=== PATIENT | female | born 1940 | race Caucasian/White ===

== ENCOUNTER → 2018-01-19 | Outpatient (CLI) | payer OTHER, BC ==
[~2018-01-19] MED LIST: ALLO300T2 PO; AMLO5TAB3 PO; BILB40CA2 PO; CARB0.5D OPB; CETI10TA84 PO; CHOL1000 PO; CINN1CAP2 PO; CRAN1CAP15 PO; CYAN100020 PO; DOCU100C31 PO; ENAL10TA88 PO; FAMO40TA6 PO; FLAXMIS; GADAVIST IV PRN; GARL705C PO; GLUCTAB7 PO; MELO7.5T5 PO; METF-383 PO; MULT1CAP6 PO; OMEG1205; OXYC-90 PO; PRAV20TA PO; PRED-301 PO; TRIM100T PO; VALA500T60 PO
--- NOTE | 2018-01-19 13:07 | DIAGNOSTIC IMAGING REPORT ---
MRCP CLINICAL HISTORY: INTRADUCTAL PAPILLARY MUCINOUS NEOPLASM COMPARISON STUDY: 04/25/2016 FINDINGS: Since the prior study, the patient has developed right-sided hydronephrosis and hydroureter. Further workup of this finding is advocated. The spleen is borderline enlarged measuring 12 cm. There are increasing clustered cystic lesions within the pancreatic head measuring up to 15 mm in diameter. There is no associated pancreatic ductal dilatation. There are few tiny cystic lesions within the pancreatic body and tail. 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 There is been interval decrease in the previously identified enlarged peripancreatic, mai hepatis and para-aortic lymph nodes. IMPRESSION: 1. Interval decrease in splenic size which is now the upper limits of normal 2. Interval decrease in the size of the previous identified enlarged peripancreatic mai hepatis and para-aortic lymph nodes 3. Interval increase in the number of the multiple cystic pancreatic lesions most pronounced at the level of the pancreatic head and uncinate process. The largest measures 15 mm. There is no associated pancreatic ductal dilatation. 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 Interval development of right-sided hydronephrosis and hydroureter. Further workup is advocated to elucidate the etiology of this finding. Electronically signed by: Kannan Travis M.D. 01/19/2018 1:06 PM Dictated Date/Time: 01/19/2018 12:54 PM
--- NOTE | 2018-01-19 14:00 | DIAGNOSTIC IMAGING REPORT ---
ABDOMEN COMBO HISTORY: 77 years-old Female INTRADUCTAL PAPILLARY MUCINOUS NEOPLASM follow-up study in a patient with history of cystic lesions of the pancreas. Patient complains of acute mid epigastric abdominal pain COMPARISON: MRCP of same day, MRI abdomen 04/25/2016 TECHNIQUE: Multiplanar multisequence MRI of the abdomen was obtained both with and without the use of 8 mL Gadavist FINDINGS: Brand Engineer localizer images demonstrate no focal abnormality of the imaged intrathoracic structures. Moderate right-sided hydroureteronephrosis with dilation of the ureter extending to the level of the pelvis. No obstructing lesion or definite filling defects identified on this study. Mild perinephric stranding bilaterally with mild urothelial enhancement on the right. External renal pelvis is seen on the left. A few nonenhancing subcentimeter T2 hyperintense lesions about the kidneys suggest renal cysts. Spleen measures within normal limits at 12 cm. Study is mildly motion degraded. Mild thickening of the left adrenal gland. Right adrenal gland is unremarkable. Liver is within normal limits. Aorta and IVC are within normal limits. The portal vein is unremarkable. Nonenlarged periportal and periaortic lymph nodes are seen. Periaortic lymph nodes measure up to 6 mm in short axis, decreased in size from comparison study 04/25/2016. No biliary ductal dilation identified. Pancreatic duct appears normal. There is redemonstration of multiple circumscribed round and ovoid T2 hyperintense lesions about the pancreas, notably involving the pancreatic head and uncinate process with a few of the pancreatic tail which overall have increased in number from comparison study, largest which measures up to 1.5 cm. No associated enhancement identified. No solid pancreatic mass lesions are identified. No bowel obstruction. The soft tissues are within normal limits. Multilevel disc bulging of the thoracic spine. IMPRESSION: 1. Increased number of nonenhancing circumscribed T2 hyperintense lesions about the pancreas, notably involving the pancreatic head and uncinate process measuring up to 1.5 cm suggest sidebranch IPMN's (intraductal papillary mucinous neoplasm). No solid or enhancing mass lesions of the pancreas identified. 2. Decreased retroperitoneal adenopathy from comparison study 04/25/2016. 3. Moderate right-sided hydroureteronephrosis with mild urothelial enhancement. The cause of the obstructive uropathy is not seen on this study. Urology consultation recommended. 4. Additional findings as above. The above report was generated using voice recognition software. It may contain grammatical, syntax or spelling errors. Electronically signed by: Anil Kolb M.D. 01/19/2018 1:58 PM Dictated Date/Time: 01/19/2018 1:39 PM
== END | disposition home or self-care (01) ==
LOC: C.MRI 10:36
PROVIDERS: ATTEND Internal Medicine Gastroenterology
DX: D37.9 Neoplasm of uncertain behavior of digestive organ, unspecified (principal); N13.30 Unspecified hydronephrosis

== ENCOUNTER 2019-10-07 01:07 | Inpatient (IN) ==
--- OUTSIDE RECORDS SUMMARY | 2019-10-07 02:40 | External Medical Summary | Continuity of Care Document ---
:1940 Author Name Eleanor Don, Provider Address Unavailable Unavailable , Care Team Providers Name Role Phone Unavailable Unavailable Unavailable [email or web address] Isabel [email or web address], [email or web address] [place] LOU[place], L Unavailable Unavailable Unavailable Unavailable Unavailable Problems Hypomagnesemia (275.2) (E83.42) Bradycardia (427.89) (R00.1) Subacute cough (786.2) (R05) Chronic lymphocytic leukemia (204.10) (C91.10) Diabetes mellitus (250.00) (E11.9) Glaucoma (365.9) (H40.9) Urinary tract infection (599.0) (N39.0) Increased trabeculation of bladder (596.89) (N32.89) Esophageal reflux (530.81) (K21.9) Incomplete emptying of bladder (788.21) (R33.9) Arthritis (716.90) (M19.90) Hyperlipidemia (272.4) (E78.5) Vitamin D deficiency (268.9) (E55.9) Diabetic peripheral neuropathy (250.60) (E11.42) Diarrhea (787.91) (R19.7) Hypertension (401.9) (I10) Allergies and Adverse Reactions Aspirin TABS (Allergy) Cymbalta CPEP (Allergy) Macrobid CAPS (Allergy) Reaction: Headac he, Tachycardia Nitrofurantoin CAPS (Allergy) Reaction: Headache, Tachycardia Sulfa Drugs (Allergy) Medications Trimethoprim 100 MG Oral Tablet; TAKE 1 TABLET Bedtime Arian Prakash Start: 29-Apr-2015 Quantity: 30 Refills: 3 Cholestyramine Arian VICTORIA Refills: 0 amLODIPine Besylate 5 MG Oral Tablet; take 1 tablet by mouth once daily Arian Nicolas Start: 14-Dec-2012 Refills: 0 Ibuprofen TABS , M.D. Refills: 0 Meloxicam 7.5 MG Oral Tablet; TAKE 1 TABLET DAILY NEEDED. Arian Nicolas Start: 14-Dec-2012 Refills: 0 ZyrTEC Allergy 10 MG Oral Tablet; TAKE 1 TABLET DAILY DIR ECTED. , M.D. Refills: 0 valACYclovir HCl - 500 MG Oral Tablet , M.D. Refills: 0 Vitamin B-12 1000 MCG Oral Tablet; TAKE 1 TABLET DAILY DI RECTED. , M.D. Refills: 0 Cumming-3 & Cumming-6 Fish Oil CAPS; (3) DAILY , M.D. Refills: 0 Multi Vitamin/Minerals TABS; TAKE 1 TABLET DAILY. , M.D. Refills: 0 Flax Seed Oil CAPS; (3) DAILY , M.D. Refills: 0 Cranberry/Vitamin C Triple St CAPS; (2) CAPSULES DAILY , M.D . Refills: 0 Cinnamon 500 MG Oral Capsule; TAKE DIRECTED. , M.D. Refills: 0 Refresh 1.4-0.6 % Ophthalmic Solution; USE DIRECTED. , M. D. Refills: 0 Bilberry CAPS; one daily , M.D. Refills: 0 Docusate Sodium 100 MG Oral Capsule; TAKE 1 CAPSULE DAILY. , M.D. Refills: 0 Citracal Plus Oral Tablet; TAKE 1 TABLET DAILY. , M.D. Start: 29-Jan-2016 Refills: 0 metFORMIN HCl - 850 MG Oral Tablet; Take 1 tablet twice a da y , M.D. Quantity: 60 Refills: 4 Famotidine 40 MG Oral Tablet; TAKE 1 TABLET DAILY. , M.D. Quantity: 30 Refills: 11 Pravastatin Sodium 10 MG Oral Tablet; TAKE 1 TABLET AT BEDTIME. Arian Nicolas Start: 14-Dec-2012 Refills: 0 Vitamin D 1000 UNIT TABS; TAKE 1 TABLET DAILY. Arian Nicolas Start: 14-Dec-2012 Refills: 0 Glucosamine Chondroitin Vit D3 Oral Capsule; TAKE 1 CA PSULE DAILY. Arian Nicolas Start: 14-Dec-2012 Refills: 0 Procedures History of Hysterectomy Status: Complete d History of Cholecystectomy Laparoscopic Status: Completed History of Colonoscopy (Fiberoptic) Stat us: Completed History of Cataract Extraction Status: C ompleted Immunizations Immunizations not documented Family History Unknown Family Member Family history of Nephrolithiasis Status: Active Commen ts: Family History Family history of Hypertension (V17.49) Status: Active Comments: Family History Family history of Heart Disease (V17.49) Status: Active Comments: Family History Family history of Diabetes Mellitus (V18.0) Status: Active Comments: Family History Mother Family history of cardiac disorder (V17.49) (Z82.49) Status: Active Social History - Smoking Status Never smoked tobacco Plan of Treatment Planned Observations Planned Goals not documented Results No Known Results Results not documented
[2019-10-07] MEDS ORDERED: GLUCOSE 10 TABS/TUBE PO PRN (03:52)
[2019-10-07] MEDS ORDERED: CARBOHYDRATES FOR HYPOGLYCEMIA PO PRN (03:52)
[2019-10-07] MEDS ORDERED: GLUCAGON FOR INJ 1 MG VIAL SQ PRN (03:52)
[2019-10-07] MEDS ORDERED: HYDROmorphone INJ 0.5 MG/0.5 ML SYR IV PRN (03:52)
[2019-10-07] MEDS ORDERED: DEXTROSE 50% 50 ML SYRINGE IV PRN (03:52)
[2019-10-07] MEDS ORDERED: ONDANSETRON INJ 2 MG/ML 2 ML VIAL IV PRN (03:52)
[2019-10-07] MEDS ORDERED: GLUCOSE 40% GEL 15 GM TUBE PO PRN (03:52)
--- NOTE | 2019-10-07 03:54 | History & Physical Report ---
Date of Service October 07, 2019 Assessment & Plan (1) Obstructive uropathy: Pt is a 79yo female with a PMHx significant for CLL, atrial fibrillation, HLD, HTN, DMII, recurrent UTIs who presents as a transfer from [facility] for obstructive uropathy requiring urology evaluation. Obstructive Uropathy -Pt with N/V, hematuria, dysuria from last evening -Outside CT abd pelvis noted thickened bladder, bilateral hydronephrosis, severe on right, moderate on left, no nephrolithiasis. -Outside BUN 24, Cr 1.6. Repeat BMP pending. -Outside UA showed leukocyte esterase, nitrites, blood. Repeat UA pending -consult placed to Urology, Dr. Dove -Pt made NPO for possible procedure -continue NSS@80cc/hr Complicated UTI/Pyelonephritis -Pt with hematuria and dysuria -Has Hx of recurrent UTIs -was on abx (cipro) 5 weeks ago for last UTI -Outside UA showed leukocyte esterase, nitrites, blood. Repeat UA pending -continue Rocephin 1g daily CLL -stable -outside med list notes use of ibrutinib 140mg TID -? pt still takes this -follows with oncology in [place] Atrial fibrillation -continue home Eliquis 5mg BID -continue home metoprolol tartrate 25mg BID HLD -continue home pravastatin 10mg daily -continue home cholestyramine HTN -continue home amlodipine and Enalapril DMII -hold home meds, Insulin Aspart 6U and Glargine 20U qhs -ISS while hospitalized Recurrent UTIs -Pt follows with Urology in [place] usually GERD -continue home Pepcid 40mg BID FEN/GI: NPO; NSS @80cc/hr DVT Prophylaxis: Eliquis CODE STATUS: DNR/DNI Dispo: Med Surg Admission and Anticipated Discharge Date Admission Date: October 07, 2019 History of Present Illness Primary Care Provider: Candelario Valdes Pt is a 79yo female with a PMHx significant for CLL, atrial fibrillation, HLD, HTN, DMII, recurrent UTIs who presents as a transfer from [facility] for obstructive uropathy requiring urology evaluation. States she has been having N/V, dysuria and hematuria from about 4pm the day before. Also currently having diarrhea which she states is a chronic problem for her. Denies any recent travel, or known COVID or coronavirus contacts. Denies cough, SOB, chest tightness. Has been having recurrent UTIs and follows with a urologist in [place]. Last use of abx for a UTI was 5 weeks ago, pt states it was ciprofloxacin. Allergies Allergy/AdvReac Type Severity Reaction Status Date / Time nitrofurantoin Allergy Mild tachycardia Verified 05/18/15 15:47 aspirin Allergy Unknown unknown Verified 11/03/12 10:05 duloxetine AdvReac Severe SEVERE Verified 06/08/15 17:21 VOMITING caffeine AdvReac Intermediate racing Verified 06/08/15 17:21 heart Sulfa (Sulfonamide AdvReac Intermediate Tinnitis Verified 11/03/15 15:42 Antibiotics) Home Medications Home Medications Medication Instructions Recorded Confirmed Type Amlodipine (Norvasc) 5 mg PO DAILY #0 tab 11/03/12 History [id number] 1 cap PO QD #0 11/03/12 History (BILBERRY EXTRACT) CARBOXYMETHYLCELLULOSE SODIUM 1 drp OPB QD@08 #0 11/03/12 History (REFRESH PLUS) CINNAMON 1 mg PO QOD #0 11/03/12 History CRANBERRY-VITAMIN C-VITAMIN E 2 capsules PO QD@08 #0 11/03/12 History (CRANBERRY) Cetirizine (Zyrtec) 10 mg PO PRN #0 tab 11/03/12 History FLAXSEED QD@08 #0 11/03/12 History GARLIC 1,000 mg PO QD@08 #0 11/03/12 History [id number] C- 1 tab PO QD #0 11/03/12 History (GLUCOSAMINE CHONDROITIN) MULTIPLE VITAMINS W/ MINERALS 1 cap PO QD@08 #0 11/03/12 History (MULTI FOR HER) Meloxicam (Mobic) 7.5 mg PO DAILY #0 tab 11/03/12 History OMEGA-3 FATTY ACIDS (OMEGA-3 EPA 1 QD@08 #0 11/03/12 History FISH OIL) Pravastatin (Pravachol ) 10 mg PO HS #0 tab 11/03/12 History CYANOCOBALAMIN (VITAMIN B12) 1,000 mcg PO DAILY #0 11/02/13 History Famotidine (Pepcid) 40 mg PO HS #0 tab 04/19/14 History METFORMIN HCL (GLUCOPHAGE) 850 mg PO BID #0 tab 04/19/14 History Trimethoprim (Proloprim) 100 mg PO DAILY #0 tab 05/18/15 History Valacyclovir (Valtrex) 1 tab PO DAILY 30 Days #30 tab 12/04/15 History ALLOPURINOL (ZYLOPRIM) 300 mg PO DAILY #0 tab 12/11/15 History CHOLECALCIFEROL (VITAMIN D3) 1,000 unit PO DAILY 30 Days #0 tab 12/11/15 History DOCUSATE SODIUM 100 mg PO DAILY 30 Days #30 cap 12/11/15 History Oxycodone Ir (Roxicodone Ir) 5 mg PO Q6H PRN #0 tab 12/11/15 History Prednisone 5 mg PO DAILY/UD #0 tab 12/11/15 History apixaban [Eliquis] 5 mg PO BID #60 tab 10/08/19 Rx metoprolol tartrate 25 mg PO BID #60 tab 10/08/19 Rx Past Med/Surg History Medical History (Updated 10/09/19 @ 00:03 by Cheyenne Vargas) Bilateral hydronephrosis Recurrent UTI Urgency incontinence Social History Preferred Language: Malian Communication Ability: Effective Current Living Situation: Spouse Feels Safe at Home: Yes Smoking Status: Never smoker Second Hand Exposure: No ; Hx Alcohol Use: No Hx Substance Use: No Review of Systems Constitutional: no fever, no chills and no sweats Eyes: no worsening vision Ear, Nose, Mouth, Throat: no nasal congestion and no sore throat Respiratory: no cough, no chest congestion and no dyspnea Cardiovascular: no chest pain, no dyspnea and no palpitations Gastrointestinal: + abdominal pain, + nausea, + vomiting and + diarrhea/loose stools; no constipation and no blood in stools Genitourinary: + dysuria and + hematuria Musculoskeletal: no body aches Integumentary: no rash Neurologic: no tingling, no numbness and no headache(s) Endocrine: no fatigue Physical Exam Physical Exam: General: Alert, oriented. No acute distress, sitting at side of bed Skin: No noted rashes or bruises Psych: Appropriate mood and affect Neuro: No gross deficits HEENT: NC/AT, PERRLA, EOMI, oropharynx moist. Chest: Nontender to palpation. CV: RRR, Normal s1, s2. No murmurs appreciated Resp: Breath sounds clear bilaterally but decreased, no increased effort of breathing. No crackles/rhonchi/rales. Abdomen: Soft, diffusely tender, nondistended. No guarding. No organomegaly appreciated. Extremities: No edema in lower extremities bilaterally. Code Status & VTE Plan VTE Prophylaxis Plan VTE Prophylaxis will be ordered: Yes Supervising Physician Co-Signing Physician Notes Attending addendum: I have physically seen this patient, have supervised the medical residents activities, and agree with the H&P unless as otherwise noted. Assessment and Plan: Obstructive uropathy/bilateral pyelonephritis/complicated UTI/renal insuffic iency- Accepted in transfer from [facility] at 80 mils per hour. NPO Consult to urology Dr. Dove Creatinine 1.9 upon admission. Repeat BMP and magnesium level in a.m. Continue ceftriaxone 1 g IV daily Hold Eliquis for now due to hematuria and for potential procedure. Atrial fibrillation/hypertension- While n.p.o., hold amlodipine and enalapril. Continue metoprolol tartrate 25 mg p.o. twice daily. Hold Eliquis as noted above. Remainder of orders and notations as noted. Resident Activity Tracking Resident Involvement: Resident Care Provided Care Provided: Adult [facility] Medicine
[2019-10-07] MEDS: SODIUM CHLORIDE 0.9% 1000ML 1,000 ML IV SCH ×2 (04:41→16:02)
[2019-10-07] MEDS: ACETAMINOPHEN 1,000 MG/100 ML VIAL IV SCH ×3 (04:41→21:59)
[2019-10-07] MEDS: cefTRIAXone SODIUM 2,000 MG in DEXTROSE 5% 50 ML IV SCH (05:28)
[2019-10-07] MEDS: INSULIN ASPART 100 UNITS/ML 3 ML PEN SC SCH ×4 (05:29→20:41)
[2019-10-07 07:04] LABS: Appearance Urine Turbid (Clear); Bilirubin Urine Negative (Negative); Blood Urine 3+ (Negative); Color Urine Yellow; Glucose Urine UA Negative (Negative); Ketones Urine Negative (Negative); Leukocyte Esterase Urine 2+ (Negative); Nitrite Urine Negative (Negative); Protein Urine 3+ (Negative); Urobilinogen Urine Negative (Negative)
[2019-10-07 07:05] LABS: Albumin Globulin Ratio 0.9 (0.9-2); Albumin Level 2.9 gm/dl (3.4-5.0); BUN Creatinine Ratio 15.3 (10-20); Bilirubin,Total 2.1 mg/dl (0.2-1); Calcium 9.1 mg/dl (8.5-10.1); Creatinine Clr Calc Pharmacy 32.4 ml/min; Est GFR (African American) 33.4; Est GFR (Non-African American) 28.8; Globulin 3.3 gm/dl (2.5-4.0); Potassium 3.9 mmol/L (3.5-5.1); Total Protein 6.2 gm/dl (6.4-8.2)
[2019-10-07 07:13] LABS: Bacteria Urine 1+ (Negative); Epithelial Cell Urine 0-5 /lpf (0-5); RBC Urine >30 /hpf (0-4); WBC Urine >30 /hpf (0-5)
[2019-10-07 07:14] LABS: Hemoglobin 11.6 g/dL (12.0-16.0); Mean Corpuscular Hemoglobin 31.8 pg (25-34); Mean Corpuscular Hgb Conc 34.1 g/dL (32-36); Mean Corpuscular Volume 93.2 fL (80-100); Mean Platelet Volume 12.7 fL (7.4-10.4); Platelet Count 122 K/uL (130-400); RDW Coefficient of Variation 15.2 % (11.5-14.5); RDW Standard Deviation 51.3 fL (36.4-46.3); Red Blood Count 3.65 M/uL (4.2-5.4); White Blood Count 13.24 K/uL (4.8-10.8)
[2019-10-07 07:15] LABS: Basophils # (auto) 0.01 K/uL (0-0.2); Basophils % (auto) 0.1 %; Immature Granulocytes # (auto) 0.04 K/uL (0.00-0.02); Immature Granulocytes % (auto) 0.3 %; Lymphocytes # (auto) 0.78 K/uL (1.2-3.4); Lymphocytes % (auto) 5.9 %; Monocytes # (auto) 1.21 K/uL (0.11-0.59); Monocytes % (auto) 9.1 %; Neutrophils % (auto) 84.6 %; Platelet Estimate Decreased (Normal); RBC Morphology Unremarkable
[2019-10-07 07:25] LABS: Beta-Hydroxybutyrate 1.64 mg/dl (0.2-2.81)
[2019-10-07 07:36] LABS: Estimated Average Glucose 143 mg/dl; Hemoglobin A1C 6.6 % (4.5-5.6)
[2019-10-07] MEDS: APIXABAN 5 MG TABLET PO SCH ×2 (08:11→20:41)
[2019-10-07] MEDS: MAGNESIUM OXIDE 400 MG TAB PO SCH (08:11)
[2019-10-07] MEDS: METOPROLOL TARTRATE 25 MG TAB PO SCH ×2 (08:11→20:40)
[2019-10-07] MEDS: allopurinoL 300 MG TAB PO SCH (08:11)
[2019-10-07] MEDS: ENALAPRIL MALEATE 10 MG TAB PO SCH (08:11)
[2019-10-07] MEDS: CHOLECALCIFEROL 1,000 UNITS 25 MCG TAB PO SCH (08:11)
[2019-10-07] MEDS: AMLODIPINE BESYLATE 5 MG TAB PO SCH (08:11)
--- NOTE | 2019-10-07 08:50 | Urology Progress Note ---
Date of Service October 07, 2019 Assessment & Plan (1) Bilateral hydronephrosis: A/P 79-year-old female with chronic hydronephrosis, right greater than left, elevated creatinine since 2016. Care discussed with hospitalist service. It is unclear the degree to which the patient's current creatinine represents an elevation over baseline. Her degree of hydronephrosis does not seem to be dramatically changed from a couple of years ago. In addition, patient reports that 2-3 years ago, Dr. Cash had brought her to the operating room for evaluation of her ureters and intraoperatively felt that stenting was not needed. I would tend to suspect some degree of chronic reflux or bladder inflammation causing her findings. Symptomatically, the patient is improved. Clinically she is nontoxic and I have a low index of suspicion for obstructive uropathy in combination with a urinary tract infection. Will hold on consideration of acute bilateral stent placement for now. Should her creatinine continue to worsen or she have evidence of septic decompensation we can readdress the issue. Okay to provide p.o. diet for today. Would monitor creatinine, obtain past outpatient values as well as urologic notes and hydrate the patient. She should be able to continue following her urologic issues with her primary urologist in a nonacute setting. Patient vocalizes understanding of the treatment plan and agrees. Currently on broad-spectrum antibiotics -await urine culture results although the patient's original UA is more suspicious for contamination than clear urinary tract infection. Thank you for allowing us to participate in this patient's acute care. Please contact our service with any questions or concerns. (2) Recurrent UTI: Await urine culture results. (3) Urgency incontinence: Outpatient nonacute management by primary urology. Subjective 79-year-old female transferred from [facility] due to imaging findings of hydronephrosis, right greater than left with a history of CLL, nausea, vomiting and renal insufficiency. She reports that she had worsening back pain, nausea, diarrhea with blood in either the stool or the urine for a couple of days causing her presentation for acute care. She reports she currently feels improved after receiving broad-spectrum antibiotics and inpatient therapy. I have previously cared for her between 2012 and 2015 before she transferred her care to Dr. Cash in [place]. Her history of recurrent UTI is noted. CT images are uploaded from disc onto our PACS system and are reviewed in c onjunction with review of axial imaging from the past 4 years. Patient noted to have significant dilation of the renal pelvis, right greater than left with some apparent tortuosity of the ureter on the right-hand side. However, this was present to a slightly lesser degree on an MRI done of the liver in 2018. Interestingly, both in December and March 2016 her kidneys appear relatively normal. No significant renal atrophy seems to have occurred over the course of time compared to the images from 2018. A small, thickened bladder is also appreciated without evidence of retention or dilation. Current creatinine of 1.7 is noted, baseline value unclear, noted to be 0.6 in 2016. She also reports worsening urge incontinence over the years and is now using diapers for this problem. Urology consultation is requested to assist with her acute care and imaging findings. Review of Systems Constitutional: + fever (Low-grade temp on admission); no chills Eyes: no diplopia Ear, Nose, Mouth, Throat: no ear trauma Respiratory: no hemoptysis Cardiovascular: no chest pain Gastrointestinal: + abdominal pain (Improved) Genitourinary: as per Subjective / HPI, + urinary frequency, + urinary urgency and + urinary incontinence Musculoskeletal: + back pain (Currently improved) Integumentary: no acne and no boil Neurologic: no paralysis Psychiatric: no hopelessness Hematologic / Lymphatic: no lymphadenopathy Allergy / Immunological: no tongue swelling Physical Exam Constitutional: + obese; no acute distress Eyes: eyes not dysmorphic ENMT: Ears: no external ear abnormality Neck: trachea midline; no anterior neck swelling Respiratory: no respiratory distress and does not use accessory muscles Cardiovascular: Vessels: radial pulses present Gastrointestinal (Abdomen): Inspection/Auscultation: abdomen not distended Percussion/Palpation: abdomen soft Musculoskeletal: Head/Neck/Chest: normocephalic and neck supple Skin: normal turgor Neurologic: awake; not obtunded Psychiatric: Orientation: oriented x 3 Lymphatic: no lymphadenopathy Results & Data Vital Signs (Past 12 Hours) Vital Signs Temp Pulse Pulse Resp BP BP Pulse Ox 10/07/19 08:07 37.0 C 77 18 105/63 92 10/07/19 05:56 85 10/07/19 03:56 37.6 C H 16 154/77 H 95 Laboratory Results Laboratory Results - last 48 hr 10/07/19 10/07/19 10/07/19 05:25 06:09 06:09 WBC 13.24 H RBC 3.65 L Hgb 11.6 L Hct 34.0 L MCV 93.2 MCH 31.8 MCHC 34.1 RDW Std Deviation 51.3 H RDW Coeff of Matthew 15.2 H Plt Count 122 L MPV 12.7 H Immature Gran % (Auto) 0.3 Neut % (Auto) 84.6 Lymph % (Auto) 5.9 [place] % (Auto) 9.1 Eos % (Auto) 0.0 Baso % (Auto) 0.1 Immature Gran # (Auto) 0.04 H Neut # (Auto) 11.20 H Lymph # (Auto) 0.78 L [place] # (Auto) 1.21 H Eos # (Auto) 0.00 Baso # (Auto) 0.01 Platelet Estimate Decreased L RBC Morphology Unremarkable Sodium 137 Potassium 3.9 Chloride 105 Carbon Dioxide 22 Anion Gap 10.0 BUN 26 H Creatinine 1.69 H Est Cr Clr Drug Dosing 32.4 Est GFR ( Amer) 33.4 Est GFR (Non-Af Amer) 28.8 BUN/Creatinine Ratio 15.3 Glucose 322 H* POC Glucose 295 H Estimat Average Glucose Hemoglobin A1c Calcium 9.1 Total Bilirubin 2.1 H AST 21 ALT 32 Alkaline Phosphatase 77 Total Protein 6.2 L Albumin 2.9 L Globulin 3.3 Albumin/Globulin Ratio 0.9 Beta-Hydroxybutyric Acd 1.64 Urine Color Urine Appearance Urine pH Ur Specific Boring Urine Protein Urine Glucose (UA) Urine Ketones Urine Blood Urine Nitrite Urine Bilirubin Urine Urobilinogen Ur Leukocyte Esterase Urine RBC Urine WBC Ur Epithelial Cells Urine Bacteria 10/07/19 10/07/19 10/07/19 06:09 07:29 Unknown WBC RBC Hgb Hct MCV MCH MCHC RDW Std Deviation RDW Coeff of Matthew Plt Count MPV Immature Gran % (Auto) Neut % (Auto) Lymph % (Auto) [place] % (Auto) Eos % (Auto) Baso % (Auto) Immature Gran # (Auto) Neut # (Auto) Lymph # (Auto) [place] # (Auto) Eos # (Auto) Baso # (Auto) Platelet Estimate RBC Morphology Sodium Potassium Chloride Carbon Dioxide Anion Gap BUN Creatinine Est Cr Clr Drug Dosing Est GFR ( Amer) Est GFR (Non-Af Amer) BUN/Creatinine Ratio Glucose POC Glucose 260 H Estimat Average Glucose 143 Hemoglobin A1c 6.6 H Calcium Total Bilirubin AST ALT Alkaline Phosphatase Total Protein Albumin Globulin Albumin/Globulin Ratio Beta-Hydroxybutyric Acd Urine Color Yellow Urine Appearance Turbid A Urine pH 6.0 Ur Specific Boring 1.020 Urine Protein 3+ H Urine Glucose (UA) Negative Urine Ketones Negative Urine Blood 3+ H Urine Nitrite Negative Urine Bilirubin Negative Urine Urobilinogen Negative Ur Leukocyte Esterase 2+ H Urine RBC >30 H Urine WBC >30 H Ur Epithelial Cells 0-5 Urine Bacteria 1+ H PG Care Time/CCT Total # of Minutes Spent Total Time Spent with Patient: Total time spent is greater than 50% in coordination of care (as documented) at patient's floor/unit and/or counseling patient: Coding Level of Care Code 86176 Inpt Consult Level 4 Diagnoses Bilateral hydronephrosis N13.30 Recurrent UTI N39.0 Urgency incontinence N39.41
[2019-10-07] MEDS: CHOLESTYRAMINE LIGHT 4 GM PKT PO SCH ×2 (10:21→22:00)
--- NOTE | 2019-10-07 14:27 | Hospitalist Progress Note ---
Date of Service October 07, 2019 Assessment & Plan (1) Bilateral hydronephrosis: I did discuss the case with Dr. Dove from urology. He did review her old imaging and felt that the degree of hydronephrosis is not significantly different. I did review lab work sent over from [facility]. I did also make contact with her primary care physician. The last lab work I have is from April 2019 where her creatinine was 1.1 and her BUN is 18. Her creatinine on admission is 1.69 with a BUN of 26, both of these are somewhat worse. We will continue to hydrate the patient overnight. As there is no acute surgical intervention, will restart a diabetic diet. If there is improvement and labs are tomorrow morning, will consider discharge with close outpatient follow-up. Admission and Anticipated Discharge Date Admission Date: October 07, 2019 Subjective Creatinine is 1.69 with a Patient admitted early this morning as a transfer from [facility] secondary to bilateral severe hydronephrosis and possible acute renal failure. Patient was seen and examined in the morning. Patient was awake and alert, she denied any pain in the flanks although she did admit some pain lower down in the groin area. She continues to have the normal urination without dysuria or hematuria. She is remained afebrile at her vitals are stable. Physical Exam Constitutional: cooperative; no acute distress Neck: trachea midline, no thyromegaly Respiratory: normal respiratory effort Auscultation: lungs clear to auscultation bilaterally; no crackles, no rales, no rhonchi and no wheezes Cardiovascular: Rate/Rhythm: regular rate and regular rhythm Heart Sounds: normal S1 and normal S2 Gastrointestinal (Abdomen): Inspection/Auscultation: abdomen normal to inspection Percussion/Palpation: abdomen soft; abdomen nontender, no guarding, abdomen not rigid and no hepatosplenomegaly Skin: no rashes, warm and dry Results & Data Results & Data ([facility]) Vital Signs (Past 12 Hours) Vital Signs Temp Pulse Pulse Resp BP BP Pulse Ox 10/07/19 08:07 37.0 C 77 18 105/63 92 10/07/19 05:56 85 10/07/19 03:56 37.6 C H 16 154/77 H 95 PG Care Time/CCT Total # of Minutes Spent Total Time Spent with Patient: Total time spent is greater than 50% in coordination of care (as documented) at patient's floor/unit and/or counseling patient: Coding Level of Care Code 34076 Subseq Hosp Care Lvl 2 Diagnoses Bilateral hydronephrosis N13.30
[2019-10-07] MEDS ORDERED: CAPSAICIN CR 0.075% 60 GM TUBE EXT PRN (16:41)
[2019-10-07] MEDS ORDERED: FAMOTIDINE 40 MG TABLET PO SCH (21:00)
[2019-10-07] MEDS ORDERED: PRAVASTATIN SOD 10 MG TAB PO SCH (21:00)
[2019-10-08] MEDS: SODIUM CHLORIDE 0.9% 1000ML 1,000 ML IV SCH (04:48)
[2019-10-08] MEDS: ACETAMINOPHEN 1,000 MG/100 ML VIAL IV SCH (05:44)
[2019-10-08] MEDS: cefTRIAXone SODIUM 2,000 MG in DEXTROSE 5% 50 ML IV SCH (05:46)
[2019-10-08 07:29] LABS: Hematocrit (blood only) 30.3 % (37-47); Hemoglobin 10.1 g/dL (12.0-16.0); Mean Corpuscular Hemoglobin 31.9 pg (25-34); Mean Corpuscular Hgb Conc 33.3 g/dL (32-36); Mean Corpuscular Volume 95.6 fL (80-100); Mean Platelet Volume 12.6 fL (7.4-10.4); Nucleated RBC # (auto) 0.02 K/uL (0-0); Nucleated RBC % (auto) 0.2 %; Platelet Count 100 K/uL (130-400); RDW Coefficient of Variation 15.6 % (11.5-14.5); RDW Standard Deviation 54.5 fL (36.4-46.3); Red Blood Count 3.17 M/uL (4.2-5.4); White Blood Count 7.22 K/uL (4.8-10.8)
[2019-10-08 07:45] LABS: Basophils # (auto) 0.01 K/uL (0-0.2); Basophils % (auto) 0.1 %; Eosinophils # (auto) 0.04 K/uL (0-0.5); Eosinophils % (auto) 0.6 %; Immature Granulocytes # (auto) 0.02 K/uL (0.00-0.02); Immature Granulocytes % (auto) 0.3 %; Lymphocytes # (auto) 0.85 K/uL (1.2-3.4); Lymphocytes % (auto) 11.8 %; Monocytes # (auto) 0.49 K/uL (0.11-0.59); Monocytes % (auto) 6.8 %; Neutrophils # (auto) 5.81 K/uL (1.4-6.5); Neutrophils % (auto) 80.4 %
[2019-10-08 07:51] LABS: Albumin Level 2.5 gm/dl (3.4-5.0); BUN Creatinine Ratio 22.3 (10-20); Creatinine Clr Calc Pharmacy 43.5 ml/min; Est GFR (African American) 47.6; Est GFR (Non-African American) 41.1; Potassium 3.8 mmol/L (3.5-5.1)
[2019-10-08 07:55] LABS: Albumin Globulin Ratio 0.8 (0.9-2); Bilirubin,Total 1.2 mg/dl (0.2-1); Globulin 3.2 gm/dl (2.5-4.0); Total Protein 5.7 gm/dl (6.4-8.2)
[2019-10-08] MEDS: INSULIN ASPART 100 UNITS/ML 3 ML PEN SC SCH ×2 (08:09→12:16)
--- NOTE | 2019-10-08 08:09 | Urology Progress Note ---
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 Regardless, her creatinine has improved substantially and for the time being I think she can avoid intervention. If she ultimately requires intervention I do not believe a stent would be successful given the lack of bladder capacity. I discussed that with her but for the time being observation is certainly our best option From a standpoint I do not anticipate any further interventions during this hospitalization and she is stablefrom our standpoint for discharge home and follow-up with her regular urologist Subjective Reports that she is feeling notably better today She reports that she had an increase in urine output overnightall passing wi thout urinary control, however she saturated numerous diapers/pads overnight Creatinine continues to improvecurrently 1.26 Review of Systems Review of Systems: All systems reviewed & are unremarkable except as noted in HPI & below Physical Exam Constitutional: well developed and well nourished Respiratory: no respiratory distress Cardiovascular: Extremities: no pedal edema Gastrointestinal (Abdomen): Inspection/Auscultation: abdomen normal to inspection Results & Data Vital Signs (Past 12 Hours) Vital Signs Temp Pulse Resp BP Pulse Ox 10/08/19 07:27 36.9 C 72 18 132/71 94 10/07/19 23:00 37 C 74 20 100/56 L 94 PG Care Time/CCT Total # of Minutes Spent Total Time Spent with Patient: Total time spent is greater than 50% in coordination of care (as documented) at patient's floor/unit and/or counseling patient: Coding Level of Care Code 79519 Subseq Hosp Care Lvl 2 Diagnoses Recurrent UTI N39.0 Bilateral hydronephrosis N13.30
[2019-10-08] MEDS: APIXABAN 5 MG TABLET PO SCH (08:10)
[2019-10-08] MEDS: ENALAPRIL MALEATE 10 MG TAB PO SCH (08:10)
[2019-10-08] MEDS: CHOLECALCIFEROL 1,000 UNITS 25 MCG TAB PO SCH (08:10)
[2019-10-08] MEDS: AMLODIPINE BESYLATE 5 MG TAB PO SCH (08:10)
[2019-10-08] MEDS: MAGNESIUM OXIDE 400 MG TAB PO SCH (08:11)
[2019-10-08] MEDS: allopurinoL 300 MG TAB PO SCH (08:11)
[2019-10-08] MEDS: METOPROLOL TARTRATE 25 MG TAB PO SCH (08:44)
[2019-10-08] MEDS: CHOLESTYRAMINE LIGHT 4 GM PKT PO SCH (10:04)
--- NOTE | 2019-10-08 11:47 | Discharge Summary ---
Date of Service October 08, 2019 Admission HPI Per Admitting Provider Pt is a 79yo female with a PMHx significant for CLL, atrial fibrillation, HLD, HTN, DMII, recurrent UTIs who presents as a transfer from [facility] for obstructive uropathy requiring urology evaluation. States she has been having N/V, dysuria and hematuria from about 4pm the day before. Also currently having diarrhea which she states is a chronic problem for her. Denies any recent travel, or known COVID or coronavirus contacts. Denies cough, SOB, chest tightness. Has been having recurrent UTIs and follows with a urologist in [place]. Last use of abx for a UTI was 5 weeks ago, pt states it was ciprofloxacin. Admission Exam Per Admitting Provider General: Alert, oriented. No acute distress, sitting at side of bed Skin: No noted rashes or bruises Psych: Appropriate mood and affect Neuro: No gross deficits HEENT: NC/AT, PERRLA, EOMI, oropharynx moist. Chest: Nontender to palpation. CV: RRR, Normal s1, s2. No murmurs appreciated Resp: Breath sounds clear bilaterally but decreased, no increased effort of breathing. No crackles/rhonchi/rales. Abdomen: Soft, diffusely tender, nondistended. No guarding. No organomegaly appreciated. Extremities: No edema in lower extremities bilaterally. Principal Diagnosis 1. Bilateral hydronephrosis, likely chronic 2. 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 Type 2 diabetes mellitus 4. Hypertension by history 5. Mild diabetic peripheral neuropathy 6. Acute renal insufficiency, resolved with fluids Discharge Exam Constitutional cooperative; no acute distress Neck trachea midline, no thyromegaly Respiratory normal respiratory effort Auscultation: lungs clear to auscultation bilaterally; no crackles, no rales, no rhonchi and no wheezes Cardiovascular Rate/Rhythm: regular rate and regular rhythm Heart Sounds: normal S1 and normal S2 Gastrointestinal (Abdomen) Inspection/Auscultation: abdomen normal to inspection Percussion/Palpation: abdomen soft; abdomen nontender, no guarding, abdomen not rigid and no hepatosplenomegaly Skin no rashes, warm and dry Discharge Data Allergies Allergy/AdvReac Type Severity Reaction Status Date / Time nitrofurantoin Allergy Mild tachycardia Verified 05/18/15 15:47 aspirin Allergy Unknown unknown Verified 11/03/12 10:05 duloxetine AdvReac Severe SEVERE Verified 06/08/15 17:21 VOMITING caffeine AdvReac Intermediate racing Verified 06/08/15 17:21 heart Sulfa (Sulfonamide AdvReac Intermediate Tinnitis Verified 11/03/15 15:42 Antibiotics) Consultations 10/07/19 03:52 Consult Urology Routine 10/07/19 10:30 Consult Health Information Management Routine Hospital Course (1) Bilateral hydronephrosis: Patient initially admitted from [facility] secondary to bilateral hydronephrosis seen on CT. Patient was admitted here and started on IV fluids secondary to renal insufficiency. Patient was evaluated by urology, I did speak to Dr. Dove. He compared her findings to previous imaging and noted that her hydronephrosis did not appear much different than what was seen several years ago. He did recommend checking her baseline renal function. I did speak to her outpatient PCP's office, they tell me that her creatinine was 1.1. Patient was hydrated with improvement, discharge creatinine was 1.2. Patient is still felt fine, was urinating normally without any complaints. She is continue her other medications and felt she did well. At time of discharge will continue to monitor renal function, she should follow with her primary care provider. She was on lisinopril which will need to be held. Her blood pressure is 132/71. She was advised to see her PCP within 1 week to have repeat lab work. Total Time Total Time Spent Total Time Spent (In Minutes): Preparation and discharge in excess of 30 minutes Discharge Plan Discharge Items Patient Disposition: Home - Self-Care Reason For Visit: OBSTRUCTION UROPATHY BILAT HYDRONEPHROSIS Discharge Diagnosis: 1. Bilateral hydronephrosis, likely chronic 2. Previous pelvic radiation 3. Acute renal insufficiency, much improved with hydration 4. Type 2 diabetes mellitus Activity: Resume your previous activity Lifting: Gradually increase as tolerated Bathing: No limitations Sexual Activity: When tolerated Weightbearing: Full weightbearing Non-emergency contact: Primary Care Provider Call non-emergency contact if: you have any medication questions Follow-up/Referrals: Candelario Valdes [Primary Care Provider] - Diet: Carb Consistent or DM2 Addtl Attending Provider Instructions: none Pending Studies at Discharge: No Stand-Alone Forms: My [employer], Smoking Cessation Medications and DC Order Prescriptions: New metoprolol tartrate 25 mg Tablet 25 mg PO BID Qty: 60 RF: 0 Eliquis 5 mg Tablet 5 mg PO BID Qty: 60 RF: 0 Continued Amlodipine (Norvasc) 5 MG tablet 5 mg PO DAILY Qty: 0 RF: 0 [id number] (BILBERRY EXTRACT) 1 CAP capsule 1 cap PO QD Qty: 0 RF: 0 CARBOXYMETHYLCELLULOSE SODIUM (REFRESH PLUS) 0.5 % MENDOZA 1 drp OPB QD@08 Qty: 0 RF: 0 CINNAMON 500 MG capsule 1 mg PO QOD Qty: 0 RF: 0 CRANBERRY-VITAMIN C-VITAMIN E (CRANBERRY) 1 CAP capsule 2 capsules PO QD@08 Qty: 0 RF: 0 Cetirizine (Zyrtec) 10 MG tablet 10 mg PO PRN Qty: 0 RF: 0 FLAXSEED 1 MIS MIS QD@08 Qty: 0 RF: 0 GARLIC 1 CAP capsule 1,000 mg PO QD@08 Qty: 0 RF: 0 [id number] C- (GLUCOSAMINE CHONDROITIN) 1 TAB tablet 1 tab PO QD Qty: 0 RF: 0 MULTIPLE VITAMINS W/ MINERALS (MULTI FOR HER) 1 CAP capsule 1 cap PO QD@08 Qty: 0 RF: 0 Meloxicam (Mobic) 7.5 MG tablet 7.5 mg PO DAILY Qty: 0 RF: 0 OMEGA-3 FATTY ACIDS (OMEGA-3 EPA FISH OIL) 1 CAP capsule 1 QD@08 Qty: 0 RF: 0 Pravastatin (Pravachol ) 20 MG tablet 10 mg PO HS Qty: 0 RF: 0 CYANOCOBALAMIN (VITAMIN B12) 1,000 MCG tablet 1,000 mcg PO DAILY Qty: 0 RF: 0 Famotidine (Pepcid) 40 MG tablet 40 mg PO HS Qty: 0 RF: 0 METFORMIN HCL (GLUCOPHAGE) 850 MG tablet 850 mg PO BID Qty: 0 RF: 0 Trimethoprim (Proloprim) 100 MG tablet 100 mg PO DAILY Qty: 0 RF: 0 Valacyclovir (Valtrex) 500 MG tablet 1 tab PO DAILY 30 Days Qty: 30 RF: 11 ALLOPURINOL (ZYLOPRIM) 300 MG tablet 300 mg PO DAILY Qty: 0 RF: 0 Prednisone 5 MG tablet 5 mg PO DAILY/UD Qty: 0 RF: 0 Oxycodone Ir (Roxicodone Ir) 5 MG tablet 5 mg PO Q6H PRN (Reason: Pain) Qty: 0 RF: 0 DOCUSATE SODIUM 100 MG capsule 100 mg PO DAILY 30 Days Qty: 30 RF: 0 CHOLECALCIFEROL (VITAMIN D3) 1,000 UNIT tablet 1,000 unit PO DAILY 30 Days Qty: 0 RF: 5 Discontinued Enalapril (Vasotec) 10 MG tablet 10 mg PO DAILY Qty: 0 RF: 0 Discharge Orders: Discharge Order (Routine); Ordered 10/08/19 Ordered By: Juvencio Sheehan Admission Data Admit Date/Time: 10/07/19 02:37 Attending Provider: Juvencio Sheehan Admit Provider: Maverick Alfaro Primary Care Provider: Candelario Valeds Other Providers: Feliciano Dove I. Coding Level of Care Code D/C Day Management >30 mins Diagnoses Bilateral hydronephrosis N13.30
--- NOTE | 2019-10-10 06:24 | Billing Data ---
Date of Service October 10, 2019 Coding Level of Care Code 50496 Initial Inpt Care Lvl 3
== END 2019-10-08 14:34 | disposition home or self-care (01) | DRG 690 ==
LOC: 2N 02:37 → SUATTDRO 02:37

== ENCOUNTER 2020-06-24 08:18 | Inpatient (IN) ==
[2020-06-24] MEDS ORDERED: ONDANSETRON INJ 2 MG/ML 2 ML VIAL IV STA ×2 (08:47→11:11)
[2020-06-24] MEDS ORDERED: SODIUM CHLORIDE 0.9% 500 ML IV ONE (08:47)
--- NOTE | 2020-06-24 08:52 | Emergency Department Note ---
Impression & Plan Urinary tract infection, Bilateral hydronephrosis, Transaminitis, Elevated bilirubin, Acute GI bleeding ED Provider Note NAME: ILIANA CALDWELL AGE: 79 SEX: F : 1940 ARRIVES VIA: Walk-In INFORMANT: Patient ED PROVIDER(S): Mateo Rubio DO CHIEF COMPLAINT: Blood in pad HPI: Patient is a 79-year-old female who presents to the ER following noticing blood in her pad when she woke up this morning. She has a history of CLL and metastatic cancer. She admits to nausea which has been present off and on daily since April. Denies any headache or change in vision. No chest pain or shortness of breath. No belly pain. Denies any dysuria, urgency or frequency. She also has had some dark stools the last time she noticed them was back in April. Pain is 0 out of 10 currently. No other exacerbating or remitting factors. She has been taking her Eliquis. She has noticed no blood vaginally. ROS: See above HPI for pertinent positives & negatives. A total of 10 systems reviewed and were otherwise negative. PAST MEDICAL HISTORY:See Below PAST SURGICAL HISTORY:See Below FAMILY HISTORY:See Below SOCIAL HISTORY:See Below HOME MEDICATIONS:See Below ALLERGIES:See Below VITALS:See Below PHYSICAL EXAMINATION: GENERAL: Sitting up in bed, alert, well appearing, well nourished, no distress, non-toxic EYE EXAM: normal conjunctiva. OROPHARYNX: no exudate, no erythema, lips, buccal mucosa, and tongue normal and mucous membranes are moist NECK: supple, no nuchal rigidity, no adenopathy, non-tender LUNGS: Clear to auscultation. Normal chest wall mechanics HEART: no murmurs, S1 normal and S2 normal ABDOMEN: abdomen soft, non-tender, normo-active bowel sounds, no masses, no rebound or guarding. RECTAL: hem + UPPER EXTREMITIES: upper extremities are grossly normal. LOWER EXTREMITIES: No pitting edema. NEURO EXAM: Normal sensorium, cranial nerves II-XII grossly intact, normal speech, no gross weakness of arms, no gross weakness of legs. MEDICAL DECISION MAKING: Patient is a 79-year-old female who presents the ER for feeling nauseated and weak. IV was established blood was obtained. Labs show leukocytosis of 12,000. No significant anemia. BMP was unremarkable. Bilirubin was elevated at 3. AST and ALT were 200 and alk phos was elevated at 213. Troponin was negative. UA does suggest a clear UTI with nitrates white cells and only 5-10 epithelial cells. Rectally she was heme positive. She was given a dose of IV antibiotics as well as IV fluids. CT abdomen pelvis does show severe bilateral hydro which i s consistent with previous. This in combination with the clear UTI as well as the GI bleed as she was rectally heme positive while taking Eliquis And with LFTs and elevated bilirubin for concern for choledocholithiasis discussed with the hospitalist for further evaluation. Patient was given fluids antibiotics and updated bedside. Triage Nursing notes reviewed. Prior medical records reviewed Vital Signs: reviewed and remarkable for HTN Differential diagnosis: Differential diagnosis includes etiologies such as diverticulitis, diverticulosis, AVM, coagulopathy, colitis, inflammatory bowel disease, malignancy, Chelsie-Arndt tear, esophagitis, peptic ulcer disease, variceal bleed, gastritis, epistaxis, fissure, hemorrhoids, as well as others were entertained. ER treatment provided: See below Diagnostics interpreted by me: ECG: none Cardiac Monitoring: An order was placed for continuous cardiac monitoring. The monitor shows a rate of 75 with sinus rhythm. Laboratory studies: As stated above and show below. Imaging studies: CT abdomen pelvis as discussed above Consultation(s): Discussed with Dr. Monson for further evaluation ED COURSE: Procedures: none Critical Care: None Past Med/Surg History Medical History (Updated 06/24/20 @ 13:02 by Mateo Rubio DO) Bilateral hydronephrosis Recurrent UTI Urgency incontinence Social History Smoking Status: Never smoker Second Hand Exposure: No; Hx Alcohol Use: No Hx Substance Use: No Preferred Language: Danish Communication Ability: Effective Current Living Situation: Spouse Feels Safe at Home: Yes Assistive Devices: Glasses Allergies Allergies Allergy/AdvReac Type Severity Reaction Status Date / Time nitrofurantoin Allergy Mild tachycardia Verified 06/24/20 10:09 aspirin Allergy Unknown unknown Verified 06/24/20 10:09 duloxetine AdvReac Severe SEVERE Verified 06/24/20 10:09 VOMITING caffeine AdvReac Intermediate racing Verified 06/24/20 10:09 heart Sulfa (Sulfonamide AdvReac Intermediate Tinnitis Verified 06/24/20 10:09 Antibiotics) Home Meds Home Medications Medication Instructions Recorded Confirmed [id number] 1 cap PO QD #0 11/03/12 06/24/20 (BILBERRY EXTRACT) CRANBERRY-VITAMIN C-VITAMIN E 2 capsules PO DAILY #0 11/03/12 06/24/20 (CRANBERRY) B-complex with vitamin C [Vitamin 1 tab PO DAILY 06/24/20 06/24/20 B Complex C W/B-12] Flexseed Oil 1 cap PO DAILY 06/24/20 06/24/20 Garlic Capsule 1 cap PO DAILY 06/24/20 06/24/20 amlodipine 10 mg PO QAM 06/24/20 06/24/20 calcium carbonate [Calcium 600] 600 mg PO DAILY 06/24/20 06/24/20 calcium citrate [Citracal] 200 mg PO DAILY 06/24/20 06/24/20 cholecalciferol (vitamin D3) 0 mcg PO DAILY 06/24/20 06/24/20 [Vitamin D3] cholestyramine (with sugar) 1 ea PO BID PRN 06/24/20 06/24/20 famotidine 40 mg PO QAM 06/24/20 06/24/20 glimepiride 4 mg PO QAM 06/24/20 06/24/20 glucos sul [id number] 1 cap PO DAILY 06/24/20 06/24/20 [Glucosamine Chondroitin] ibrutinib [Imbruvica] 280 mg PO QAM 06/24/20 06/24/20 insulin aspart U-100 [Novolog 6 unit SUBCUT TID 06/24/20 06/24/20 U-100 Insulin aspart] insulin glargine [Basaglar KwikPen 20 unit SUBCUT HS 06/24/20 06/24/20 U-100 Insulin] lactobacillus combination no.4 3,000 mmu cells PO QAM 06/24/20 06/24/20 [Probiotic] magnesium oxide 400 mg PO DAILY 06/24/20 06/24/20 omega 9-zvz-mmm-fish oil [Fish Oil] 1 cap PO DAILY 06/24/20 06/24/20 pravastatin 10 mg PO HS 06/24/20 06/24/20 zinc 50 mg PO QAM 06/24/20 06/24/20 Previous Rx's Medication Instructions Recorded apixaban [Eliquis] 5 mg PO BID #60 tab 10/08/19 metoprolol tartrate 25 mg PO BID #60 tab 10/08/19 Results & Data (ED) Vital Signs Vital Signs - 24 hr 06/24/20 08:23 06/24/20 09:01 06/24/20 09:10 Temperature 37.0 C Temperature Source Oral Pulse Rate 84 77 Pulse Rate from SpO2 Sensor 78 Respiratory Rate 18 18 Respiratory Effort / Characteristics Non-Labored Spontaneous Respiratory Depth Normal Blood Pressure 156/91 H 159/77 H Blood Pressure Mean 112 101 Blood Pressure Position Sitting Pulse Oximetry 96 95 97 Oxygen Delivery Method Room Air Room Air Room Air Sepsis Recent Fever Within 48 Hours No Sepsis New/Unexplained Change in Mental Status No Sepsis Action Taken by Nursing No Action Required 06/24/20 09:30 06/24/20 10:00 06/24/20 10:30 Temperature Temperature Source Pulse Rate Pulse Rate from SpO2 Sensor 78 77 80 Respiratory Rate 20 20 Respiratory Effort / Characteristics Respiratory Depth Blood Pressure 168/64 H 183/73 H 172/65 H Blood Pressure Mean 90 111 105 Blood Pressure Position Pulse Oximetry 96 95 94 Oxygen Delivery Method Room Air Room Air Room Air Sepsis Recent Fever Within 48 Hours Sepsis New/Unexplained Change in Mental Status Sepsis Action Taken by Nursing 06/24/20 11:13 06/24/20 11:30 06/24/20 12:00 Temperature Temperature Source Pulse Rate 82 84 78 Pulse Rate from SpO2 Sensor 82 84 78 Respiratory Rate 21 15 18 Respiratory Effort / Characteristics Respiratory Depth Blood Pressure 145/54 H 155/72 H 152/65 H Blood Pressure Mean 96 104 104 Blood Pressure Position Pulse Oximetry 96 96 94 Oxygen Delivery Method Room Air Room Air Room Air Sepsis Recent Fever Within 48 Hours Sepsis New/Unexplained Change in Mental Status Sepsis Action Taken by Nursing 06/24/20 12:30 Temperature Temperature Source Pulse Rate 79 Pulse Rate from SpO2 Sensor 79 Respiratory Rate 18 Respiratory Effort / Characteristics Respiratory Depth Blood Pressure 162/81 H Blood Pressure Mean 114 Blood Pressure Position Pulse Oximetry 94 Oxygen Delivery Method Room Air Sepsis Recent Fever Within 48 Hours Sepsis New/Unexplained Change in Mental Status Sepsis Action Taken by Nursing Laboratory Data Result diagrams: 06/24/20 08:47 06/24/20 08:47 Lab Results 06/24/20 06/24/20 06/24/20 Range/Units 08:47 08:47 08:47 WBC 12.91 H (4.8-10.8) K/uL RBC 4.40 (4.2-5.4) M/uL Hgb 14.2 (12.0-16.0) g/dL Hct 41.3 (37-47) % MCV 93.9 (80-100) fL MCH 32.3 (25-34) pg MCHC 34.4 (32-36) g/dL RDW Std Deviation 55.7 H (36.4-46.3) fL RDW Coeff of Matthew 16.2 H (11.5-14.5) % Plt Count 174 (130-400) K/uL MPV 13.0 H (7.4-10.4) fL Immature Gran % (Auto) 0.6 % Neut % (Auto) 86.7 % Lymph % (Auto) 4.1 % [place] % (Auto) 8.2 % Eos % (Auto) 0.2 % Baso % (Auto) 0.2 % Neut # (Auto) 11.20 H (1.4-6.5) K/uL Lymph # (Auto) 0.53 L (1.2-3.4) K/uL [place] # (Auto) 1.06 H (0.11-0.59) K/uL Eos # (Auto) 0.02 (0-0.5) K/uL Baso # (Auto) 0.02 (0-0.2) K/uL Immature Gran # (Auto) 0.08 H (0.00-0.02) K/uL PT 11.3 (9.0-12.0) Seconds INR 1.1 (0.9-1.1) APTT 25.1 (21.0-31.0) Seconds PTT Ratio 0.9 Sodium 136 (136-145) mmol/L Potassium 3.7 (3.5-5.1) mmol/L Chloride 104 (98-107) mmol/L Carbon Dioxide 26 (21-32) mmol/L Anion Gap 7.0 (3-11) BUN 9 (7-18) mg/dl Creatinine 1.12 (0.6-1.2) mg/dl Est Cr Clr Drug Dosing 47.5 ml/min Est GFR ( Amer) 54.9 Est GFR (Non-Af Amer) 47.3 BUN/Creatinine Ratio 8.3 L (10-20) Glucose 104 H (70-99) mg/dl Calcium 9.2 (8.5-10.1) mg/dl Total Bilirubin 2.9 H (0.2-1) mg/dl AST 192 H (15-37) U/L ALT 231 H (12-78) U/L Alkaline Phosphatase 213 H (45-117) U/L Troponin I < 0.015 (0-0.045) ng/ml Total Protein 7.2 (6.4-8.2) gm/dl Albumin 3.7 (3.4-5.0) gm/dl Globulin 3.5 (2.5-4.0) gm/dl Albumin/Globulin Ratio 1.1 (0.9-2) Specimen Hemolysis Urine Color Urine Appearance (Clear) Urine pH (4.5-7.5) Ur Specific [place] (1.000-1.030) Urine Protein (Negative) Urine Glucose (UA) (Negative) Urine Ketones (Negative) Urine Blood (Negative) Urine Nitrite (Negative) Urine Bilirubin (Negative) Urine Urobilinogen (Negative) Ur Leukocyte Esterase (Negative) Urine WBC (Auto) (0-5) /hpf Urine RBC (Auto) (0-4) /hpf U Hyaline Cast (Auto) (0-5) /lpf U Epithel Cells (Auto) (0-5) /lpf Urine Bacteria (Auto) (Negative) POC Stool Occult Blood (Negative) SARS-CoV-2 Ag (Rapid) (Negative) Blood Type Antibody Screen 06/24/20 06/24/20 06/24/20 Range/Units 09:01 09:25 09:26 WBC (4.8-10.8) K/uL RBC (4.2-5.4) M/uL Hgb (12.0-16.0) g/dL Hct (37-47) % MCV (80-100) fL MCH (25-34) pg MCHC (32-36) g/dL RDW Std Deviation (36.4-46.3) fL RDW Coeff of Matthew (11.5-14.5) % Plt Count (130-400) K/uL MPV (7.4-10.4) fL Immature Gran % (Auto) % Neut % (Auto) % Lymph % (Auto) % [place] % (Auto) % Eos % (Auto) % Baso % (Auto) % Neut # (Auto) (1.4-6.5) K/uL Lymph # (Auto) (1.2-3.4) K/uL [place] # (Auto) (0.11-0.59) K/uL Eos # (Auto) (0-0.5) K/uL Baso # (Auto) (0-0.2) K/uL Immature Gran # (Auto) (0.00-0.02) K/uL PT (9.0-12.0) Seconds INR (0.9-1.1) APTT (21.0-31.0) Seconds PTT Ratio Sodium (136-145) mmol/L Potassium (3.5-5.1) mmol/L Chloride (98-107) mmol/L Carbon Dioxide (21-32) mmol/L Anion Gap (3-11) BUN (7-18) mg/dl Creatinine (0.6-1.2) mg/dl Est Cr Clr Drug Dosing ml/min Est GFR ( Amer) Est GFR (Non-Af Amer) BUN/Creatinine Ratio (10-20) Glucose (70-99) mg/dl Calcium (8.5-10.1) mg/dl Total Bilirubin (0.2-1) mg/dl AST (15-37) U/L ALT (12-78) U/L Alkaline Phosphatase (45-117) U/L Troponin I (0-0.045) ng/ml Total Protein (6.4-8.2) gm/dl Albumin (3.4-5.0) gm/dl Globulin (2.5-4.0) gm/dl Albumin/Globulin Ratio (0.9-2) Specimen Hemolysis Urine Color Dark Yellow Urine Appearance Turbid A (Clear) Urine pH 7.0 (4.5-7.5) Ur Specific [place] 1.017 (1.000-1.030) Urine Protein 3+ H (Negative) Urine Glucose (UA) Negative (Negative) Urine Ketones Trace H (Negative) Urine Blood 3+ H (Negative) Urine Nitrite Positive A (Negative) Urine Bilirubin Negative (Negative) Urine Urobilinogen Negative (Negative) Ur Leukocyte Esterase 3+ H (Negative) Urine WBC (Auto) >30 H (0-5) /hpf Urine RBC (Auto) >30 H (0-4) /hpf U Hyaline Cast (Auto) 1-5 (0-5) /lpf U Epithel Cells (Auto) 5-10 H (0-5) /lpf Urine Bacteria (Auto) Negative (Negative) POC Stool Occult Blood Positive A (Negative) SARS-CoV-2 Ag (Rapid) (Negative) Blood Type Cancelled Antibody Screen Cancelled 06/24/20 06/24/20 Range/Units 09:35 11:21 WBC (4.8-10.8) K/uL RBC (4.2-5.4) M/uL Hgb (12.0-16.0) g/dL Hct (37-47) % MCV (80-100) fL MCH (25-34) pg MCHC (32-36) g/dL RDW Std Deviation (36.4-46.3) fL RDW Coeff of Matthew (11.5-14.5) % Plt Count (130-400) K/uL MPV (7.4-10.4) fL Immature Gran % (Auto) % Neut % (Auto) % Lymph % (Auto) % [place] % (Auto) % Eos % (Auto) % Baso % (Auto) % Neut # (Auto) (1.4-6.5) K/uL Lymph # (Auto) (1.2-3.4) K/uL [place] # (Auto) (0.11-0.59) K/uL Eos # (Auto) (0-0.5) K/uL Baso # (Auto) (0-0.2) K/uL Immature Gran # (Auto) (0.00-0.02) K/uL PT (9.0-12.0) Seconds INR (0.9-1.1) APTT (21.0-31.0) Seconds PTT Ratio Sodium (136-145) mmol/L Potassium (3.5-5.1) mmol/L Chloride (98-107) mmol/L Carbon Dioxide (21-32) mmol/L Anion Gap (3-11) BUN (7-18) mg/dl Creatinine (0.6-1.2) mg/dl Est Cr Clr Drug Dosing ml/min Est GFR ( Amer) Est GFR (Non-Af Amer) BUN/Creatinine Ratio (10-20) Glucose (70-99) mg/dl Calcium (8.5-10.1) mg/dl Total Bilirubin (0.2-1) mg/dl AST (15-37) U/L ALT (12-78) U/L Alkaline Phosphatase (45-117) U/L Troponin I (0-0.045) ng/ml Total Protein (6.4-8.2) gm/dl Albumin (3.4-5.0) gm/dl Globulin (2.5-4.0) gm/dl Albumin/Globulin Ratio (0.9-2) Specimen Hemolysis Urine Color Urine Appearance (Clear) Urine pH (4.5-7.5) Ur Specific [place] (1.000-1.030) Urine Protein (Negative) Urine Glucose (UA) (Negative) Urine Ketones (Negative) Urine Blood (Negative) Urine Nitrite (Negative) Urine Bilirubin (Negative) Urine Urobilinogen (Negative) Ur Leukocyte Esterase (Negative) Urine WBC (Auto) (0-5) /hpf Urine RBC (Auto) (0-4) /hpf U Hyaline Cast (Auto) (0-5) /lpf U Epithel Cells (Auto) (0-5) /lpf Urine Bacteria (Auto) (Negative) POC Stool Occult Blood (Negative) SARS-CoV-2 Ag (Rapid) Negative (Negative) Blood Type AB Positive Antibody Screen NEGATIVE Administered Medications Discontinued Medications Sodium Chloride (Nss) 500 mls @ 999 mls/hr IV .Q31M ONE Stop: 06/24/20 09:17 Last Infusion: 06/24/20 09:50 Dose: 0 mls/hr Documented by: [id number] Admin: 06/24/20 09:16 Dose: 999 mls/hr Documented by: [id number] Ceftriaxone Sodium (Rocephin) 1,000 mg in 50 mls @ 100 mls/hr IV NOW STA Stop: 06/24/20 11:12 Last Infusion: 06/24/20 11:22 Dose: 0 mls/hr Documented by: [id number] Admin: 06/24/20 10:52 Dose: 100 mls/hr Documented by: [id number] Ioversol (Ioversol 100ml) 94 ml IV ONCE ONE Stop: 06/24/20 10:44 Last Admin: 06/24/20 10:43 Dose: 94 ml Documented by: [id number] Ondansetron HCl (Ondansetron Inj 2 Mg/Ml 2 Ml Vial) 4 mg IV NOW STA Stop: 06/24/20 08:48 Last Admin: 06/24/20 09:16 Dose: 4 mg Documented by: [id number] Ondansetron HCl (Ondansetron Inj 2 Mg/Ml 2 Ml Vial) 4 mg IV NOW STA Stop: 06/24/20 11:12 Last Admin: 06/24/20 11:16 Dose: 4 mg Documented by: [id number] Discharge Plan Visit Data Chief Complaint: Hematuria Stated Complaint: BLOOD IN URINE,NAUSEA,FEELS LIKE PASSING OUT ED Provider: Mateo Rubio Discharge Problem: Urinary tract infection, Bilateral hydronephrosis, Transaminitis, Elevated bilirubin, Acute GI bleeding Forms Stand Alone Forms: [employer] Prescriptions Prescriptions: No Action [id number] (BILBERRY EXTRACT) 1 CAP capsule 1 cap PO QD Qty: 0 RF: 0 CRANBERRY-VITAMIN C-VITAMIN E (CRANBERRY) 1 CAP capsule 2 capsules PO DAILY Qty: 0 RF: 0 famotidine 40 mg tablet 40 mg PO QAM RF: 0 amlodipine 5 mg tablet 10 mg PO QAM RF: 0 pravastatin 10 mg tablet 10 mg PO HS RF: 0 insulin aspart U-100 [Novolog U-100 Insulin aspart] 100 unit/mL solution 6 unit subcut TID RF: 0 glimepiride 4 mg tablet 4 mg PO QAM RF: 0 zinc 50 mg Tablet 50 mg PO QAM RF: 0 B-complex with vitamin C [Vitamin B Complex C W/B-12] Tablet 1 tab PO DAILY RF: 0 cholestyramine (with sugar) 4 gram powder 1 ea PO BID PRN (Reason: .) RF: 0 Basaglar KwikPen U-100 Insulin 100 unit/mL (3 mL) insulin pen 20 unit SUBCUT HS RF: 0 Probiotic 3 billion cell Capsule 3,000 mmu cells PO QAM RF: 0 Imbruvica 280 mg tablet 280 mg PO QAM RF: 0 Glucosamine Chondroitin 550-30-1 mg Capsule 1 cap PO DAILY RF: 0 Flexseed Oil 1 cap PO DAILY RF: 0 Garlic Capsule 1 cap PO DAILY RF: 0 calcium carbonate [Calcium 600] 600 mg calcium (1,500 mg) Tablet 600 mg PO DAILY RF: 0 magnesium oxide 400 mg (241.3 mg magnesium) tablet 400 mg PO DAILY RF: 0 calcium citrate [Citracal] 200 mg (950 mg) Tablet 200 mg PO DAILY RF: 0 cholecalciferol (vitamin D3) [Vitamin D3] 25 mcg (1,000 unit) Tablet 0 mcg PO DAILY RF: 0 omega 3-ijg-ymt-fish oil [Fish Oil] 1,200 (144-216) mg Capsule 1 cap PO DAILY RF: 0 metoprolol tartrate 25 mg Tablet 25 mg PO BID Qty: 60 RF: 0 Eliquis 5 mg Tablet 5 mg PO BID Qty: 60 RF: 0 Discharge Problem: Urinary tract infection Qualifiers: Urinary tract infection type: site unspecified Hematuria presence: with hematuria Qualified Code(s): N39.0 - Urinary tract infection, site not specified
[2020-06-24 09:16] LABS: Basophils # (auto) 0.02 K/uL (0-0.2); Basophils % (auto) 0.2 %; Eosinophils # (auto) 0.02 K/uL (0-0.5); Eosinophils % (auto) 0.2 %; Hematocrit (blood only) 41.3 % (37-47); Hemoglobin 14.2 g/dL (12.0-16.0); Immature Granulocytes # (auto) 0.08 K/uL (0.00-0.02); Immature Granulocytes % (auto) 0.6 %; Lymphocytes # (auto) 0.53 K/uL (1.2-3.4); Lymphocytes % (auto) 4.1 %; Mean Corpuscular Hemoglobin 32.3 pg (25-34); Mean Corpuscular Hgb Conc 34.4 g/dL (32-36); Mean Corpuscular Volume 93.9 fL (80-100); Monocytes # (auto) 1.06 K/uL (0.11-0.59); Monocytes % (auto) 8.2 %; Neutrophils % (auto) 86.7 %; Platelet Count 174 K/uL (130-400); RDW Coefficient of Variation 16.2 % (11.5-14.5); RDW Standard Deviation 55.7 fL (36.4-46.3); White Blood Count 12.91 K/uL (4.8-10.8)
[2020-06-24 09:25] LABS: Alanine Aminotransferase 231 U/L (12-78); Albumin Level 3.7 gm/dl (3.4-5.0); BUN Creatinine Ratio 8.3 (10-20); Blood Urea Nitrogen 9 mg/dl (7-18); Calcium 9.2 mg/dl (8.5-10.1); Carbon Dioxide 26 mmol/L (21-32); Chloride 104 mmol/L (98-107); Creatinine Clr Calc Pharmacy 47.5 ml/min; Est GFR (African American) 54.9; Est GFR (Non-African American) 47.3; Glucose 104 mg/dl (70-99)
[2020-06-24 09:28] LABS: Albumin Globulin Ratio 1.1 (0.9-2); Alkaline Phosphatase 213 U/L (45-117); Bilirubin,Total 2.9 mg/dl (0.2-1); Globulin 3.5 gm/dl (2.5-4.0); Total Protein 7.2 gm/dl (6.4-8.2); Troponin I < 0.015 ng/ml (0-0.045)
[2020-06-24 09:32] LABS: Potassium 3.7 mmol/L (3.5-5.1); Sodium 136 mmol/L (136-145)
[2020-06-24 09:38] LABS: Appearance Urine Turbid (Clear); Bacteria Urine Automated Negative (Negative); Bilirubin Urine Negative (Negative); Blood Urine 3+ (Negative); Color Urine Dark Yellow; Glucose Urine UA Negative (Negative); Ketones Urine Trace (Negative); Leukocyte Esterase Urine 3+ (Negative); Nitrite Urine Positive (Negative); Protein Urine 3+ (Negative); RBC Urine Automated >30 /hpf (0-4); Specific Gravity Urine 1.017 (1.000-1.030); Urobilinogen Urine Negative (Negative); WBC Urine Automated >30 /hpf (0-5)
[2020-06-24 09:41] LABS: INR 1.1 (0.9-1.1); Partial Thromboplastin Ratio 0.9; Partial Thromboplastin Time 25.1 Seconds (21.0-31.0); Prothrombin Time 11.3 Seconds (9.0-12.0)
[2020-06-24 10:04] LABS: Aspartate Aminotransferase 192 U/L (15-37)
[2020-06-24] MEDS ORDERED: IOVERSOL 100ml IV ONE (10:43)
[2020-06-24] MEDS ORDERED: cefTRIAXone SODIUM 1,000 MG/50 ML BAG IV STA (10:43)
--- NOTE | 2020-06-24 11:00 | CT Scan Report ---
CT OF THE ABDOMEN AND PELVIS WITH CONTRAST CLINICAL HISTORY: nausea w/ GI bleed COMPARISON STUDY: CT of the abdomen and pelvis October 06, 2019. MRCP April 27, 2020. MRI of the abdo men May 05, 2020. TECHNIQUE: Following IV administration of 94 mL of Optiray-320, axial images of the abdomen and pelvi s were obtained from the lung bases to the proximal femurs. Images were reviewed in the axial, sagitt al, and coronal planes. IV contrast was administered without complication. Automated exposure contro l was utilized for the study. A dose lowering technique was utilized adhering to the principles of A ILANA. CT DOSE: 747.47 mGy.cm FINDINGS: Lung bases are unremarkable. No pneumatosis, free air or portal venous gas is present. Ther e is no significant biliary ductal dilatation status post cholecystectomy. No hepatic lesions are pre sent. There is no pancreatic ductal dilatation. Numerous cystic lesions within the pancreas that molly ure up to 1.6 cm are similar to MRCP of May 05, 2020. The spleen and adrenal glands are unremarka ble. Severe bilateral hydroureteronephrosis is similar to CT of October 06, 2019 and MRI of May 05, 2020. Urothelial thickening and mild adjacent infiltration is noted. There are no urinary calculi. Th ere is moderate bilateral renal cortical thinning. Wall thickening and irregularity is noted with pamela pected diverticula. The bladder is small. Mild infiltration adjacent to the bladder is noted. There i s no renal abscess. No pathologically enlarged abdominal or pelvic lymph nodes are present. Major vas culature is patent. The appendix is not visualized. There is mild distal ileal wall thickening. Sigmo id diverticulosis is noted without evidence for acute diverticulitis. No acute fracture or suspicious lesion is identified within the visualized skeletal structures. There is trace ascites. IMPRESSION: 1. No significant change in severe bilateral hydroureteronephrosis of uncertain etiology although lik harish bladder related. Urothelial thickening with mild adjacent infiltration could represent superimpos ed infection. 2. Mild distal ileal wall thickening, a nonspecific finding. No bowel obstruction. 3. 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 4. Trace pelvic ascites. ACT 112: Negative or not required by law. Electronically signed by: Star Hein M.D. 06/24/2020 10:58 AM
--- NOTE | 2020-06-24 11:49 | History & Physical Report ---
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 fib as well as DVT prophylaxis. -Patient H&H is normal and I suspect that there is black positivity secondary to chronic Tylenol ingestion. Present on Admission?: Yes (12) Complicated UTI (urinary tract infection): Urine culture pending Rocephin 1 g daily Complicated UTI secondary to structural abnormalities of bilateral hydro and atonic bladder. Admission and Anticipated Discharge Date Admission Date: 06/24/2020 History of Present Illness Chief Complaint: Hematuria Primary Care Provider: Candelario Valdes Patient is a 79-year-old female who presents with blood in her undergarments which was concerning for possible urinary tract infection as well as gastrointestinal losses. She reports that she has had some lower back and flank pain and has been taking 2 Tylenol rapid release capsules approximately every 4 hours for pain. She reports that she has had issues after taking Tylenol previously. She denies chest pain or shortness of breath but she does endorse nausea without vomiting. Denies fevers, she is unsure of the dose of Tylenol and does not know how much Tylenol to take in a maximum daily dose. She reports that she has been taking that amount of Tylenol since approximately Thanks[place] which is 4 to 6 weeks Patient also reports she has a history of atrial fibrillation for which she takes 5 mg of Eliquis daily for long-term anticoagulation. Allergies Allergy/AdvReac Type Severity Reaction Status Date / Time nitrofurantoin Allergy Mild tachycardia Verified 06/24/20 10:09 aspirin Allergy Unknown unknown Verified 06/24/20 10:09 duloxetine AdvReac Severe SEVERE Verified 06/24/20 10:09 VOMITING caffeine AdvReac Intermediate racing Verified 06/24/20 10:09 heart Sulfa (Sulfonamide AdvReac Intermediate Tinnitis Verified 06/24/20 10:09 Antibiotics) Home Medications Medication Instructions Recorded Confirmed Type [id number] 1 cap PO QD #0 11/03/12 06/24/20 History (BILBERRY EXTRACT) CRANBERRY-VITAMIN C-VITAMIN E 2 capsules PO DAILY #0 11/03/12 06/24/20 History (CRANBERRY) apixaban [Eliquis] 5 mg PO BID #60 tab 10/08/19 06/24/20 Rx metoprolol tartrate 25 mg PO BID #60 tab 10/08/19 06/24/20 Rx B-complex with vitamin C [Vitamin 1 tab PO DAILY 06/24/20 06/24/20 History B Complex C W/B-12] Flexseed Oil 1 cap PO DAILY 06/24/20 06/24/20 History Garlic Capsule 1 cap PO DAILY 06/24/20 06/24/20 History amlodipine 10 mg PO QAM 06/24/20 06/24/20 History calcium carbonate [Calcium 600] 600 mg PO DAILY 06/24/20 06/24/20 History calcium citrate [Citracal] 200 mg PO DAILY 06/24/20 06/24/20 History cholecalciferol (vitamin D3) 0 mcg PO DAILY 06/24/20 06/24/20 History [Vitamin D3] cholestyramine (with sugar) 1 ea PO BID PRN 06/24/20 06/24/20 History famotidine 40 mg PO QAM 06/24/20 06/24/20 History glimepiride 4 mg PO QAM 06/24/20 06/24/20 History glucos sul [id number]-C-Mn 1 cap PO DAILY 06/24/20 06/24/20 History [Glucosamine Chondroitin] ibrutinib [Imbruvica] 280 mg PO QAM 06/24/20 06/24/20 History insulin aspart U-100 [Novolog 6 unit SUBCUT TID 06/24/20 06/24/20 History U-100 Insulin aspart] insulin glargine [Basaglar KwikPen 20 unit SUBCUT HS 06/24/20 06/24/20 History U-100 Insulin] lactobacillus combination no.4 3,000 mmu cells PO QAM 06/24/20 06/24/20 History [Probiotic] magnesium oxide 400 mg PO DAILY 06/24/20 06/24/20 History omega 7-wvr-ggq-fish oil [Fish Oil] 1 cap PO DAILY 06/24/20 06/24/20 History pravastatin 10 mg PO HS 06/24/20 06/24/20 History zinc 50 mg PO QAM 06/24/20 06/24/20 History Past Med/Surg History Medical History Bilateral hydronephrosis Recurrent UTI Urgency incontinence Social History Smoking Status: Never smoker Second Hand Exposure: No; Hx Alcohol Use: No Hx Substance Use: No Preferred Language: Wolof Communication Ability: Effective Current Living Situation: Spouse Feels Safe at Home: Yes Assistive Devices: Glasses Review of Systems Review of Systems: All systems reviewed & are unremarkable except as noted in HPI & below Denies fevers or chills Physical Exam Physical Exam: General: Alert. nontoxic. Skin: Warm, dry, Head: Atraumatic Ears, nose, mouth and throat: airway patent Cardiovascular: Normal peripheral perfusion, S1-S2 regular and rhythm no murmurs rubs gallops Respiratory: no respiratory distress lungs clear to auscultation bilaterally Gastrointestinal: Non distended, no tenderness no flank tenderness no tenderness with percussion of the CV angle this is a nonsurgical abdomen Musculoskeletal: No deformity Results & Data Results & Data ([facility]) Vital Signs (Past 12 Hours) Vital Signs Temp Pulse Resp BP Pulse Ox 06/24/20 11:13 82 21 145/54 H 96 06/24/20 10:30 20 172/65 H 94 06/24/20 10:00 20 183/73 H 95 06/24/20 09:30 168/64 H 96 06/24/20 09:10 97 06/24/20 09:01 77 18 159/77 H 95 06/24/20 08:23 37.0 C 84 18 156/91 H 96 Laboratory Results 06/24/20 06/24/20 06/24/20 Range/Units 11:21 09:35 09:26 WBC (4.8-10.8) K/uL RBC (4.2-5.4) M/uL Hgb (12.0-16.0) g/dL Hct (37-47) % MCV (80-100) fL MCH (25-34) pg MCHC (32-36) g/dL RDW Std Deviation (36.4-46.3) fL RDW Coeff of Matthew (11.5-14.5) % Plt Count (130-400) K/uL MPV (7.4-10.4) fL Immature Gran % (Auto) % Neut % (Auto) % Lymph % (Auto) % Cherry % (Auto) % Eos % (Auto) % Baso % (Auto) % Neut # (Auto) (1.4-6.5) K/uL Lymph # (Auto) (1.2-3.4) K/uL Cherry # (Auto) (0.11-0.59) K/uL Eos # (Auto) (0-0.5) K/uL Baso # (Auto) (0-0.2) K/uL Immature Gran # (Auto) (0.00-0.02) K/uL PT (9.0-12.0) Seconds INR (0.9-1.1) APTT (21.0-31.0) Seconds PTT Ratio Sodium (136-145) mmol/L Potassium (3.5-5.1) mmol/L Chloride (98-107) mmol/L Carbon Dioxide (21-32) mmol/L Anion Gap (3-11) BUN (7-18) mg/dl Creatinine (0.6-1.2) mg/dl Est Cr Clr Drug Dosing ml/min Est GFR ( Amer) Est GFR (Non-Af Amer) BUN/Creatinine Ratio (10-20) Glucose (70-99) mg/dl Calcium (8.5-10.1) mg/dl Total Bilirubin (0.2-1) mg/dl AST (15-37) U/L ALT (12-78) U/L Alkaline Phosphatase (45-117) U/L Troponin I (0-0.045) ng/ml Total Protein (6.4-8.2) gm/dl Albumin (3.4-5.0) gm/dl Globulin (2.5-4.0) gm/dl Albumin/Globulin Ratio (0.9-2) Specimen Hemolysis Urine Color Urine Appearance (Clear) Urine pH (4.5-7.5) Ur Specific Morris (1.000-1.030) Urine Protein (Negative) Urine Glucose (UA) (Negative) Urine Ketones (Negative) Urine Blood (Negative) Urine Nitrite (Negative) Urine Bilirubin (Negative) Urine Urobilinogen (Negative) Ur Leukocyte Esterase (Negative) Urine WBC (Auto) (0-5) /hpf Urine RBC (Auto) (0-4) /hpf U Hyaline Cast (Auto) (0-5) /lpf U Epithel Cells (Auto) (0-5) /lpf Urine Bacteria (Auto) (Negative) POC Stool Occult Blood Positive A (Negative) SARS-CoV-2 Ag (Rapid) Negative (Negative) Blood Type AB Positive Antibody Screen NEGATIVE 06/24/20 06/24/20 06/24/20 Range/Units 09:25 09:01 08:47 WBC (4.8-10.8) K/uL RBC (4.2-5.4) M/uL Hgb (12.0-16.0) g/dL Hct (37-47) % MCV (80-100) fL MCH (25-34) pg MCHC (32-36) g/dL RDW Std Deviation (36.4-46.3) fL RDW Coeff of Matthew (11.5-14.5) % Plt Count (130-400) K/uL MPV (7.4-10.4) fL Immature Gran % (Auto) % Neut % (Auto) % Lymph % (Auto) % Cherry % (Auto) % Eos % (Auto) % Baso % (Auto) % Neut # (Auto) (1.4-6.5) K/uL Lymph # (Auto) (1.2-3.4) K/uL Cherry # (Auto) (0.11-0.59) K/uL Eos # (Auto) (0-0.5) K/uL Baso # (Auto) (0-0.2) K/uL Immature Gran # (Auto) (0.00-0.02) K/uL PT (9.0-12.0) Seconds INR (0.9-1.1) APTT (21.0-31.0) Seconds PTT Ratio Sodium 136 (136-145) mmol/L Potassium 3.7 (3.5-5.1) mmol/L Chloride 104 (98-107) mmol/L Carbon Dioxide 26 (21-32) mmol/L Anion Gap 7.0 (3-11) BUN 9 (7-18) mg/dl Creatinine 1.12 (0.6-1.2) mg/dl Est Cr Clr Drug Dosing 47.5 ml/min Est GFR ( Amer) 54.9 Est GFR (Non-Af Amer) 47.3 BUN/Creatinine Ratio 8.3 L (10-20) Glucose 104 H (70-99) mg/dl Calcium 9.2 (8.5-10.1) mg/dl Total Bilirubin 2.9 H (0.2-1) mg/dl AST 192 H (15-37) U/L ALT 231 H (12-78) U/L Alkaline Phosphatase 213 H (45-117) U/L Troponin I < 0.015 (0-0.045) ng/ml Total Protein 7.2 (6.4-8.2) gm/dl Albumin 3.7 (3.4-5.0) gm/dl Globulin 3.5 (2.5-4.0) gm/dl Albumin/Globulin Ratio 1.1 (0.9-2) Specimen Hemolysis Urine Color Dark Yellow Urine Appearance Turbid A (Clear) Urine pH 7.0 (4.5-7.5) Ur Specific Morris 1.017 (1.000-1.030) Urine Protein 3+ H (Negative) Urine Glucose (UA) Negative (Negative) Urine Ketones Trace H (Negative) Urine Blood 3+ H (Negative) Urine Nitrite Positive A (Negative) Urine Bilirubin Negative (Negative) Urine Urobilinogen Negative (Negative) Ur Leukocyte Esterase 3+ H (Negative) Urine WBC (Auto) >30 H (0-5) /hpf Urine RBC (Auto) >30 H (0-4) /hpf U Hyaline Cast (Auto) 1-5 (0-5) /lpf U Epithel Cells (Auto) 5-10 H (0-5) /lpf Urine Bacteria (Auto) Negative (Negative) POC Stool Occult Blood (Negative) SARS-CoV-2 Ag (Rapid) (Negative) Blood Type Cancelled Antibody Screen Cancelled 06/24/20 06/24/20 Range/Units 08:47 08:47 WBC 12.91 H (4.8-10.8) K/uL RBC 4.40 (4.2-5.4) M/uL Hgb 14.2 (12.0-16.0) g/dL Hct 41.3 (37-47) % MCV 93.9 (80-100) fL MCH 32.3 (25-34) pg MCHC 34.4 (32-36) g/dL RDW Std Deviation 55.7 H (36.4-46.3) fL RDW Coeff of Matthew 16.2 H (11.5-14.5) % Plt Count 174 (130-400) K/uL MPV 13.0 H (7.4-10.4) fL Immature Gran % (Auto) 0.6 % Neut % (Auto) 86.7 % Lymph % (Auto) 4.1 % Cherry % (Auto) 8.2 % Eos % (Auto) 0.2 % Baso % (Auto) 0.2 % Neut # (Auto) 11.20 H (1.4-6.5) K/uL Lymph # (Auto) 0.53 L (1.2-3.4) K/uL Cherry # (Auto) 1.06 H (0.11-0.59) K/uL Eos # (Auto) 0.02 (0-0.5) K/uL Baso # (Auto) 0.02 (0-0.2) K/uL Immature Gran # (Auto) 0.08 H (0.00-0.02) K/uL PT 11.3 (9.0-12.0) Seconds INR 1.1 (0.9-1.1) APTT 25.1 (21.0-31.0) Seconds PTT Ratio 0.9 Sodium (136-145) mmol/L Potassium (3.5-5.1) mmol/L Chloride (98-107) mmol/L Carbon Dioxide (21-32) mmol/L Anion Gap (3-11) BUN (7-18) mg/dl Creatinine (0.6-1.2) mg/dl Est Cr Clr Drug Dosing ml/min Est GFR ( Amer) Est GFR (Non-Af Amer) BUN/Creatinine Ratio (10-20) Glucose (70-99) mg/dl Calcium (8.5-10.1) mg/dl Total Bilirubin (0.2-1) mg/dl AST (15-37) U/L ALT (12-78) U/L Alkaline Phosphatase (45-117) U/L Troponin I (0-0.045) ng/ml Total Protein (6.4-8.2) gm/dl Albumin (3.4-5.0) gm/dl Globulin (2.5-4.0) gm/dl Albumin/Globulin Ratio (0.9-2) Specimen Hemolysis Urine Color Urine Appearance (Clear) Urine pH (4.5-7.5) Ur Specific Morris (1.000-1.030) Urine Protein (Negative) Urine Glucose (UA) (Negative) Urine Ketones (Negative) Urine Blood (Negative) Urine Nitrite (Negative) Urine Bilirubin (Negative) Urine Urobilinogen (Negative) Ur Leukocyte Esterase (Negative) Urine WBC (Auto) (0-5) /hpf Urine RBC (Auto) (0-4) /hpf U Hyaline Cast (Auto) (0-5) /lpf U Epithel Cells (Auto) (0-5) /lpf Urine Bacteria (Auto) (Negative) POC Stool Occult Blood (Negative) SARS-CoV-2 Ag (Rapid) (Negative) Blood Type Antibody Screen Diagnostic Findings [facility], [phone] CT Scan Report Patient: ILIANA CALDWELL Date: 06/24/20MR#: [id number] RDAcct ID:[id number] Date: 1940[facility] Zip: [place] [id number]: [id number]: EDSex: FRoom/Bed:Att Phy:Diagnosis: BLOOD IN URINE,NAUSEA,FEELS LIKE PASSING OUTPri Phy: Candelario Valdes M.D.Service Date: 06/24/20[facility] Phy:Interpreting Phy: Star Hein MDAdmit Phy: Ordering Phy: Mateo Rubio, cc: ~ CT OF THE ABDOMEN AND PELVIS WITH CONTRAST CLINICAL HISTORY: nausea w/ GI bleed COMPARISON STUDY: CT of the abdomen and pelvis October 06, 2019. MRCP April 27, 2020. MRI of the abdomen May 05, 2020. TECHNIQUE: Following IV administration of 94 mL of Optiray-320, axial images of the abdomen and pelvis were obtained from the lung bases to the proximal femurs. Images were reviewed in the axial, sagittal, and coronal planes. IV contrast was administered without complication. Automated exposure control was utilized for the study. A dose lowering technique was utilized adhering to the principles of ALARA. CT DOSE: 747.47 mGy.cm FINDINGS: Lung bases are unremarkable. No pneumatosis, free air or portal venous gas is present. There is no significant biliary ductal dilatation status post cholecystectomy. No hepatic lesions are present. There is no pancreatic ductal dilatation. Numerous cystic lesions within the pancreas that measure up to 1.6 cm are similar to MRCP of May 05, 2020. The spleen and adrenal glands are unremarkable. Severe bilateral hydroureteronephrosis is similar to CT of October 06, 2019 and MRI of May 05, 2020. Urothelial thickening and mild adjacent infiltration is noted. There are no urinary calculi. There is moderate bilateral renal cortical thinning. Wall thickening and irregularity is noted with suspected diverticula. The bladder is small. Mild infiltration adjacent to the bladder is noted. There is no renal abscess. No pathologically enlarged ab dominal or pelvic lymph nodes are present. Major vasculature is patent. The appendix is not visualized. There is mild distal ileal wall thickening. Sigmoid diverticulosis is noted without evidence for acute diverticulitis. No acute fracture or suspicious lesion is identified within the visualized skeletal structures. There is trace ascites. IMPRESSION: 1. No significant change in severe bilateral hydroureteronephrosis of uncertain etiology although likely bladder related. Urothelial thickening with mild adjacent infiltration could represent superimposed infection. 2. Mild distal ileal wall thickening, a nonspecific finding. No bowel obstruction. 3. 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 4. Trace pelvic ascites. ACT 112: Negative or not required by law. Electronically signed by: Star Hein M.D. 06/24/2020 10:58 AM Dictated: 06/24/20 1045Transcribed: 06/24/20 1055 Code Status & VTE Plan Code Status DNR/DNI VTE Prophylaxis Plan VTE Prophylaxis will be ordered: Yes PG Care Time/CCT Total # of Minutes Spent Total Time Spent with Patient: Total time spent is greater than 50% in coordination of care (as documented) at patient's floor/unit and/or counseling patient: Coding Level of Care Code 35845 Initial Inpt Care Lvl 3 Diagnoses Poisoning by acemetacin T39.391A Encounter type: initial encounter Injury intent: accidental or unintentional Urinary tract infection N39.0; R31.9 Hematuria presence: with hematuria Urinary tract infection type: site unspecified Transaminitis R74.01 Elevated bilirubin R17 Urgency incontinence N39.41 Bilateral hydronephrosis N13.30 Guaiac positive stools R19.5 Abnormal EKG R94.31 CLL (chronic lymphocytic leukemia) C91.90 Paroxysmal A-fib I48.0 [facility] current use of anticoagulant Z79.01 Complicated UTI (urinary tract infection) N39.0 (1) Urinary tract infection Hematuria presence: with hematuria Urinary tract infection type: site unspecified Qualified Code(s): N39.0 - Urinary tract infection, site not specified; R31.9 - Hematuria, unspecified (2) Poisoning by acemetacin Encounter type: initial encounter Injury intent: accidental or unintentional Qualified Code(s): T39.391A - Poisoning by other nonsteroidal anti-inflammatory drugs [NSAID], accidental (unintentional), initial encounter
[2020-06-24] MEDS ORDERED: ACETYLCYSTEINE 20% 200 MG/ML 30ML VIAL PO STA (13:21)
--- NOTE | 2020-06-24 13:42 | Electrocardiogram Report ---
Test Reason : Blood Pressure : / mmHG Vent. Rate : 075 BPM Atrial Rate : 075 BPM P-R Int : 188 ms QRS Dur : 084 ms QT Int : 368 ms P-R-T Axes : 062 004 031 degrees QTc Int : 410 ms Normal sinus rhythm Nonspecific T wave abnormality Abnormal ECG When compared with ECG of 12-DEC-2015 08:17, Nonspecific T wave abnormality, worse in Anterolateral leads Confirmed by Eduardo Dawn ([id number]) on 06/24/2020 1:42:14 PM Referred By: Confirmed By:Eduardo Dawn
[2020-06-24] MEDS ORDERED: DEXTROSE 5% IV ONE (14:30)
[2020-06-24] MEDS ORDERED: ACETYLCYSTEINE IV ONE (14:30)
[2020-06-24] MEDS ORDERED: DEXTROSE 5% IV SCH ×2 (15:30→19:30)
[2020-06-24] MEDS ORDERED: ACETYLCYSTEINE IV SCH ×2 (15:30→19:30)
[2020-06-24] MEDS ORDERED: METOCLOPRAMIDE HCL INJ 5 MG/ML 2 ML VIAL ONE (17:54)
[2020-06-24 18:11] LABS: Hematocrit (blood only) 38.8 % (37-47); Hemoglobin 13.2 g/dL (12.0-16.0)
[2020-06-24 18:38] LABS: Albumin Level 3.1 gm/dl (3.4-5.0); Bilirubin Direct 0.3 mg/dl (0-0.2); Bilirubin,Total 2.4 mg/dl (0.2-1); Total Protein 6.9 gm/dl (6.4-8.2)
[2020-06-24 20:20] LABS: Hepatitis B Surface Antigen Neg (Neg)
[2020-06-24] MEDS: METOPROLOL TARTRATE 25 MG TAB PO SCH (20:43)
[2020-06-24] MEDS: APIXABAN 5 MG TABLET PO SCH (20:43)
[2020-06-24 20:49] LABS: Hepatitis C IgG 13Yrs+Old_Rflx Neg (Neg)
[2020-06-24] MEDS: INSULIN GLARGINE SOLOSTAR 100 UNITS/ML 3 ML PEN SQ SCH (21:00)
[2020-06-24] MEDS ORDERED: INSULIN ASPART PER UNIT SQ SCH (21:00)
[2020-06-24] MEDS: IBRUTINIB 280 MG PO SCH (21:02)
[2020-06-24] MEDS: INSULIN ASPART 100 UNITS/ML 3 ML PEN SC SCH (21:04)
[2020-06-24 23:19] LABS: Hematocrit (blood only) 33.4 % (37-47); Hemoglobin 11.4 g/dL (12.0-16.0)
[2020-06-25] MEDS: METOCLOPRAMIDE HCL INJ 5 MG/ML 2 ML VIAL IV PRN (00:01)
[2020-06-25] MEDS: CAPSAICIN CR 0.075% 60 GM TUBE EXT PRN ×2 (00:30→22:03)
[2020-06-25 06:42] LABS: Creatinine Clr Calc Pharmacy 77.7 ml/min; Est GFR (African American) 97.8; Est GFR (Non-African American) 84.4; Potassium 2.6 mmol/L (3.5-5.1)
[2020-06-25] MEDS ORDERED: GLIMEPIRIDE 2 MG TAB PO SCH (09:00)
[2020-06-25] MEDS: amLODIPine BESYLATE 5 MG TAB PO SCH (09:03)
[2020-06-25] MEDS: APIXABAN 5 MG TABLET PO SCH (09:03)
[2020-06-25] MEDS: MAGNESIUM OXIDE 400 MG TAB PO SCH (09:04)
[2020-06-25] MEDS: CALCIUM CITRATE 950 MG TAB PO SCH (09:04)
[2020-06-25] MEDS: VITAMIN B COMPLEX TAB PO SCH (09:04)
[2020-06-25] MEDS: CALCIUM CARBONATE 1250MG TAB PO SCH (09:04)
[2020-06-25] MEDS: FAMOTIDINE 40 MG TABLET PO SCH (09:04)
[2020-06-25] MEDS: ZINC SULFATE 220 MG CAPSULE PO SCH (09:05)
[2020-06-25] MEDS: INSULIN ASPART 100 UNITS/ML 3 ML PEN SC SCH ×4 (09:06→21:56)
[2020-06-25] MEDS: IBRUTINIB 280 MG PO SCH (09:10)
[2020-06-25] MEDS: METOPROLOL TARTRATE 25 MG TAB PO SCH ×2 (09:11→20:00)
[2020-06-25] MEDS ORDERED: cefTRIAXone SODIUM 2,000 MG in DEXTROSE 5% 50 ML IV SCH (11:00)
--- NOTE | 2020-06-25 12:47 | Electrocardiogram Report ---
Test Reason : Blood Pressure : / mmHG Vent. Rate : 087 BPM Atrial Rate : 087 BPM P-R Int : 174 ms QRS Dur : 082 ms QT Int : 432 ms P-R-T Axes : 068 005 045 degrees QTc Int : 519 ms Normal sinus rhythm Nonspecific T wave abnormality Abnormal ECG When compared with ECG of 24-JUN-2020 09:00, QT has lengthened Confirmed by Eduardo Dawn ([id number]) on 06/25/2020 12:47:29 PM Referred By: REFERRED SELF Confirmed By:Eduardo Dawn
--- NOTE | 2020-06-25 14:19 | Hospitalist Progress Note ---
Date of Service June 25, 2020 Assessment & Plan (1) Urinary tract infection: Hematuria was actually presenting issue. - Urine culture growing Gram(-) bacilli - UA will need to be tested after treatment to ensure resolution of hematuria. - Continue ceftriaxone (2) Accidental acetaminophen overdose: Was taking ~4g of acetaminophen daily for approx. 3-4 weeks (since ). - Finished NAC - Gastroenterology consulted - Pending - LFTs downtrending & no indication of synthetic dysfunction. Likely no major long-term sequelae. (3) Guaiac positive stools: This can be secondary to Tylenol overdose. BP and HR stable; doubt ongoing gastrointestinal hemorrhage. - Hgb down slightly from baseline. 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 - Monitor (5) Diabetes: A1c was 6.6% in 09/2019. - Hold home oral meds - Repeat A1c - Continue long-acting 20 units HS - Sliding scale insulin -> Will tighten today; sugars dropping overnight, but then bouncing up in the day. Do not want to increase long-acting in this case. (6) Hypertension: BP is 160/75 today. - Continue home amlodipine, beta-debra (7) Paroxysmal A-fib: Currently sinus rhythm. On beta-debra and anticoagulation at baseline. 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 - Prior urology notes (10/08/2019) indicate it is long-standing and requires no inpatient changes. - Follow with outpatient urologist. (9) CLL (chronic lymphocytic leukemia): No inpatient needs. - Continue Ibrutinib 280 mg daily (10) DVT prophylaxis: SCDs - Hold heparin until seen by GI Admission and Anticipated Discharge Date Admission Date: June 24, 2020 Subjective Feeling quite well today. No pain. No nausea or stomach pain. Reports no fevers/chills, chest pain, shortness of breath, abdominal pain, nausea, or vomiting. Physical Exam Constitutional: WD/WN, vitals as above Eyes: EOM intact bilaterally; no conjunctival abnormality ENMT: external ear and nose normal, oropharynx normal Neck: trachea midline, no thyromegaly normal visual inspection Respiratory: normal respiratory effort, lungs clear to auscultation no respiratory distress Cardiovascular: RRR, no murmur, no edema Gastrointestinal (Abdomen): Inspection/Auscultation: abdomen normal to inspection; abdomen not distended Musculoskeletal: no cyanosis or clubbing, extremities motor strength 5/5 Skin: no rashes, warm and dry Neurologic: moves all extremities and awake Psychiatric: Orientation: alert, oriented to person and cooperative Results & Data Results & Data ([facility]) Vital Signs (Past 12 Hours) Vital Signs Temp Pulse Resp BP Pulse Ox 06/25/20 07:41 36.8 C 86 16 161/74 H 96 PG Care Time/CCT Total # of Minutes Spent Total Time Spent with Patient: Total time spent is greater than 50% in coordination of care (as documented) at patient's floor/unit and/or counseling patient: Coding Level of Care Code 55807 Subseq Hosp Care Lvl 3 Diagnoses Urinary tract infection N39.0; R31.9 Hematuria presence: with hematuria Urinary tract infection type: site unspecified Accidental acetaminophen overdose T39.1X1A Guaiac positive stools R19.5 Urgency incontinence N39.41 Diabetes E11.9 Hypertension I10 Paroxysmal A-fib I48.0 Bilateral hydronephrosis N13.30 CLL (chronic lymphocytic leukemia) C91.90 DVT prophylaxis Z29.9 (1) Urinary tract infection Hematuria presence: with hematuria Urinary tract infection type: site unspecified Qualified Code(s): N39.0 - Urinary tract infection, site not specified; R31.9 - Hematuria, unspecified
[2020-06-25] MEDS ORDERED: POTASSIUM PHOS 3 MMOL/1 ML INFUSION IV STA (14:22)
[2020-06-25] MEDS ORDERED: POTASSIUM PHOSPHATE 21 MMOL in SODIUM CHLORIDE 0.9% 500 ML IV ONE (14:45)
[2020-06-25 14:54] LABS: Hematocrit (blood only) 32.8 % (37-47); Hemoglobin 11.2 g/dL (12.0-16.0); Mean Corpuscular Hemoglobin 31.8 pg (25-34); Mean Corpuscular Hgb Conc 34.1 g/dL (32-36); Mean Corpuscular Volume 93.2 fL (80-100); Mean Platelet Volume 11.4 fL (7.4-10.4); Platelet Count 123 K/uL (130-400); RDW Coefficient of Variation 16.5 % (11.5-14.5); RDW Standard Deviation 56.3 fL (36.4-46.3); Red Blood Count 3.52 M/uL (4.2-5.4); White Blood Count 6.57 K/uL (4.8-10.8)
[2020-06-25] MEDS: POTASSIUM CHLORIDE / WTR 10 MEQ/100 ML PLCT IV SCH ×4 (15:29→19:45)
[2020-06-25] MEDS: POTASSIUM CHLORIDE 10 MEQ TABCR PO SCH ×2 (15:46→20:00)
--- NOTE | 2020-06-25 15:46 | Gastrointestinal Consultation ---
Date of Consultation June 25, 2020 History of Present Illness Attending Physician: Alexey Dove MD HPI: 79 yo female with PMH as below seen for abnl LFT's. Pt with new onset transaministis, with AST/ALT in 200's, AP also 200''s, total bili 2's/direct normal. LFT's previously recently normal. Lipase not checked. 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 + APAP use 3-4 gms daily x 1 month, APAP level normal. s/p amber. She also was noted to be guaiac positive, with stable hgb and small amt of blood in pad. Feels well today, LFT's trending down. PE: comfortable HEENT: OC clear CV: RRR Resp: CTA Abd soft. A/P: Increased transaminases - Presumably DILI related to APAP use. Please continue to follow, check lipase with next blood draw. No further recs. Indirect hyperbili - Presumably Gilbert's. Would ask primary service to consider checking labs for hemolysis. This should be rechecked as outpt by Dr. Lala. G pos, anemia - Should have outpt cscopy and iron studies to w/u. This can be done by Dr. Lala, who follows her. Panc cysts - per outside gastro service Will sign off. Allergies Allergy/AdvReac Type Severity Reaction Status Date / Time nitrofurantoin Allergy Mild tachycardia Verified 06/24/20 10:09 aspirin Allergy Unknown unknown Verified 06/24/20 10:09 duloxetine AdvReac Severe SEVERE Verified 06/24/20 10:09 VOMITING caffeine AdvReac Intermediate racing Verified 06/24/20 10:09 heart Sulfa (Sulfonamide AdvReac Intermediate Tinnitis Verified 06/24/20 10:09 Antibiotics) Home Medications Medication Instructions Recorded Confirmed Type [id number] 1 cap PO QD #0 11/03/12 06/24/20 History (BILBERRY EXTRACT) CRANBERRY-VITAMIN C-VITAMIN E 2 capsules PO DAILY #0 11/03/12 06/24/20 History (CRANBERRY) apixaban [Eliquis] 5 mg PO BID #60 tab 10/08/19 06/24/20 Rx metoprolol tartrate 25 mg PO BID #60 tab 10/08/19 06/24/20 Rx B-complex with vitamin C [Vitamin 1 tab PO DAILY 06/24/20 06/24/20 History B Complex C W/B-12] Flexseed Oil 1 cap PO DAILY 06/24/20 06/24/20 History Garlic Capsule 1 cap PO DAILY 06/24/20 06/24/20 History amlodipine 10 mg PO QAM 06/24/20 06/24/20 History calcium carbonate [Calcium 600] 600 mg PO DAILY 06/24/20 06/24/20 History calcium citrate [Citracal] 200 mg PO DAILY 06/24/20 06/24/20 History cholecalciferol (vitamin D3) 0 mcg PO DAILY 06/24/20 06/24/20 History [Vitamin D3] cholestyramine (with sugar) 1 ea PO BID PRN 06/24/20 06/24/20 History famotidine 40 mg PO QAM 06/24/20 06/24/20 History glimepiride 4 mg PO QAM 06/24/20 06/24/20 History glucos sul [id number]-aab-[id number]-C-Mn 1 cap PO DAILY 06/24/20 06/24/20 History [Glucosamine Chondroitin] ibrutinib [Imbruvica] 280 mg PO QAM 06/24/20 06/24/20 History insulin aspart U-100 [Novolog 6 unit SUBCUT TID 06/24/20 06/24/20 History U-100 Insulin aspart] insulin glargine [Basaglar KwikPen 20 unit SUBCUT HS 06/24/20 06/24/20 History U-100 Insulin] lactobacillus combination no.4 3,000 mmu cells PO QAM 06/24/20 06/24/20 History [Probiotic] magnesium oxide 400 mg PO DAILY 06/24/20 06/24/20 History omega 7-eyf-pad-fish oil [Fish Oil] 1 cap PO DAILY 06/24/20 06/24/20 History pravastatin 10 mg PO HS 06/24/20 06/24/20 History zinc 50 mg PO QAM 06/24/20 06/24/20 History Patient History Medical History (Updated 06/25/20 @ 14:18 by Alexey Dove MD) Bilateral hydronephrosis Diabetes Hypertension Recurrent UTI Urgency incontinence Social History Smoking Status: Never smoker Second Hand Exposure: No; Do You Dip or Chew Tobacco: No; Tobacco Cessation Education Requested by Patient: No Hx Alcohol Use: No Hx Substance Use: No Preferred Language: Portuguese Communication Ability: Effective Health Inspector Food Required: No Beliefs That Will Affect Care: None Current Living Situation: Spouse Other Information That Helps Us Care for You: No Feels Safe at Home: Yes Safety Concerns: Feels Safe At This Time Assistive Devices: None Results & Data ([facility]) Vital Signs (Past 12 Hours) Vital Signs Temp Pulse Resp BP Pulse Ox 06/25/20 15:19 37.0 C 83 20 151/76 H 97 06/25/20 07:41 36.8 C 86 16 161/74 H 96
[2020-06-25] MEDS: INSULIN GLARGINE SOLOSTAR 100 UNITS/ML 3 ML PEN SQ SCH (21:57)
[2020-06-26] MEDS: IBRUTINIB 280 MG PO SCH (05:54)
[2020-06-26 07:53] LABS: Hematocrit (blood only) 36.6 % (37-47); Hemoglobin 12.1 g/dL (12.0-16.0); Mean Corpuscular Hemoglobin 31.5 pg (25-34); Mean Corpuscular Hgb Conc 33.1 g/dL (32-36); Mean Corpuscular Volume 95.3 fL (80-100); Mean Platelet Volume 12.1 fL (7.4-10.4); Platelet Count 147 K/uL (130-400); RDW Coefficient of Variation 16.5 % (11.5-14.5); RDW Standard Deviation 58.3 fL (36.4-46.3); Red Blood Count 3.84 M/uL (4.2-5.4); White Blood Count 7.05 K/uL (4.8-10.8)
[2020-06-26 08:20] LABS: Albumin Level 2.9 gm/dl (3.4-5.0); BUN Creatinine Ratio 8.3 (10-20); Calcium 8.4 mg/dl (8.5-10.1); Creatinine Clr Calc Pharmacy 66.1 ml/min; Est GFR (African American) 82.4; Est GFR (Non-African American) 71.1; Magnesium 1.8 mg/dl (1.8-2.4); Potassium 3.6 mmol/L (3.5-5.1)
[2020-06-26 08:24] LABS: Albumin Globulin Ratio 0.8 (0.9-2); Bilirubin,Total 1.4 mg/dl (0.2-1); Globulin 3.5 gm/dl (2.5-4.0); Phosphorus 2.4 mg/dl (2.5-4.9); Total Protein 6.4 gm/dl (6.4-8.2)
[2020-06-26] MEDS: METOPROLOL TARTRATE 25 MG TAB PO SCH ×2 (09:17→21:54)
[2020-06-26] MEDS: CALCIUM CARBONATE 1250MG TAB PO SCH (09:17)
[2020-06-26] MEDS: MAGNESIUM OXIDE 400 MG TAB PO SCH (09:17)
[2020-06-26] MEDS: FAMOTIDINE 40 MG TABLET PO SCH (09:17)
[2020-06-26] MEDS: amLODIPine BESYLATE 5 MG TAB PO SCH (09:17)
[2020-06-26] MEDS: INSULIN ASPART 100 UNITS/ML 3 ML PEN SC SCH ×4 (09:18→21:58)
[2020-06-26] MEDS: VITAMIN B COMPLEX TAB PO SCH (09:45)
[2020-06-26] MEDS: CALCIUM CITRATE 950 MG TAB PO SCH (09:45)
[2020-06-26] MEDS: ZINC SULFATE 220 MG CAPSULE PO SCH (09:45)
[2020-06-26 09:46] LABS: Estimated Average Glucose 120 mg/dl; Hemoglobin A1C 5.8 % (4.5-5.6)
[2020-06-26] MEDS: ERTAPENEM SODIUM 1,000 MG in SODIUM CHLORIDE 0.9% 50 ML IV SCH (12:08)
[2020-06-26] MEDS: METOCLOPRAMIDE HCL INJ 5 MG/ML 2 ML VIAL IV PRN (12:08)
[2020-06-26] MEDS: ADVANCED PROBIOTIC 1250 MG CAPSULE PO SCH (16:18)
[2020-06-26] MEDS: INSULIN GLARGINE SOLOSTAR 100 UNITS/ML 3 ML PEN SQ SCH (21:58)
--- NOTE | 2020-06-27 01:24 | Hospitalist Progress Note ---
Date of Service June 26, 2020 Assessment & Plan (1) Urinary tract infection: d/c rocephin change to ertapenem - today would be day #1 of Rx plan at least 7 days of Rx (2) Accidental acetaminophen overdose: Was taking ~4g of acetaminophen daily for approx. 3-4 weeks (since ). Finished NAC protocol. LFTs improving. Repeat in am. (3) Guaiac positive stools: H/H acceptable. 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 (5) Diabetes: Hold home oral meds Cont lantus 20 units HS Cont novolog (6) Hypertension: Continue home meds (7) Paroxysmal A-fib: Currently sinus rhythm. On beta-debra and anticoagulation at baseline. 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 Prior urology notes (10/08/2019) indicate it is long-standing and requires no Rx HOWEVER - with recurrent UTIs, though -- stents??? does she have reflux of urinary tract? get her back to Dr Feliciano Dove in [facility] post-d/c (9) CLL (chronic lymphocytic leukemia): Continue Ibrutinib 280 mg daily (10) DVT prophylaxis: probably resume apixaban tomorrow needs PT/OT evals Admission and Anticipated Discharge Date Admission Date: June 24, 2020 Subjective c/o copious diarrhea today every 20 min this am. feels quite tired. no dyspnea. mild loss of appetite. has taken some walks in hallway. asks about frequent UTIs and prophy abx. was seeing Dr Doev, urology, for b/l hydro. stents not pursued for this. Review of Systems Constitutional: + fatigue; no fever and no chills Cardiovascular: no chest pain Gastrointestinal: + diarrhea/loose stools; no abdominal pain and no vomiting Physical Exam Constitutional: no acute distress and no altered mental status ENMT: external ear and nose normal, oropharynx normal Respiratory: normal respiratory effort, lungs clear to auscultation Cardiovascular: Rate/Rhythm: regular rate and regular rhythm Heart Sounds: normal S1 and normal S2; no murmur Vessels: posterior tibial pulses present and dorsalis pedis pulses present; no JVD Gastrointestinal (Abdomen): normal bowel sounds, soft, nontender, no hepatosplenomegaly Psychiatric: A+Ox3, euthymic affect Results & Data Results & Data ([facility]) Vital Signs (Past 12 Hours) Vital Signs Temp Pulse Resp BP Pulse Ox 06/26/20 23:01 36.9 C 83 18 112/71 95 06/26/20 22:02 37 C 88 16 129/75 94 06/26/20 15:37 36.6 C 79 16 147/78 H 97 urine cx - ESBL proteus - sens ertapenem; sens levaquin PG Care Time/CCT Total # of Minutes Spent Total Time Spent with Patient: Total time spent is greater than 50% in coordination of care (as documented) at patient's floor/unit and/or counseling patient: Coding Level of Care Code 10047 Subseq Hosp Care Lvl 3 Diagnoses Urinary tract infection N39.0; R31.9 Hematuria presence: with hematuria Urinary tract infection type: site unspecified Accidental acetaminophen overdose T39.1X1A Guaiac positive stools R19.5 Urgency incontinence N39.41 Diabetes E11.9 Hypertension I10 Paroxysmal A-fib I48.0 Bilateral hydronephrosis N13.30 CLL (chronic lymphocytic leukemia) C91.90 DVT prophylaxis Z29.9 (1) Urinary tract infection Hematuria presence: with hematuria Urinary tract infection type: site unspecified Qualified Code(s): N39.0 - Urinary tract infection, site not specified; R31.9 - Hematuria, unspecified
[2020-06-27 07:20] LABS: Albumin Level 2.5 gm/dl (3.4-5.0); BUN Creatinine Ratio 9.7 (10-20); Bilirubin Direct 0.3 mg/dl (0-0.2); Bilirubin,Total 1.4 mg/dl (0.2-1); Calcium 8.3 mg/dl (8.5-10.1); Creatinine Clr Calc Pharmacy 73.4 ml/min; Est GFR (African American) 93.6; Est GFR (Non-African American) 80.8; Potassium 3.1 mmol/L (3.5-5.1); Total Protein 5.5 gm/dl (6.4-8.2)
[2020-06-27] MEDS: IBRUTINIB 280 MG PO SCH (07:32)
[2020-06-27] MEDS: CALCIUM CITRATE 950 MG TAB PO SCH (07:33)
[2020-06-27] MEDS: METOPROLOL TARTRATE 25 MG TAB PO SCH ×2 (07:33→20:46)
[2020-06-27] MEDS: amLODIPine BESYLATE 5 MG TAB PO SCH (07:33)
[2020-06-27] MEDS: MAGNESIUM OXIDE 400 MG TAB PO SCH (07:33)
[2020-06-27] MEDS: ZINC SULFATE 220 MG CAPSULE PO SCH (07:34)
[2020-06-27] MEDS: VITAMIN B COMPLEX TAB PO SCH (07:34)
[2020-06-27] MEDS: CALCIUM CARBONATE 1250MG TAB PO SCH (07:34)
[2020-06-27] MEDS: ADVANCED PROBIOTIC 1250 MG CAPSULE PO SCH (07:34)
[2020-06-27] MEDS: FAMOTIDINE 40 MG TABLET PO SCH (07:34)
[2020-06-27] MEDS: INSULIN ASPART 100 UNITS/ML 3 ML PEN SC SCH ×4 (08:31→20:49)
[2020-06-27] MEDS ORDERED: POTASSIUM CHLORIDE CRTAB 20 MEQ TABCR PO STA (10:22)
--- NOTE | 2020-06-27 10:29 | Hospitalist Progress Note ---
Date of Service June 27, 2020 Assessment & Plan (1) Urinary tract infection: Hematuria was actually presenting issue. - Urine culture growing Proteus mirabilis - multiple abx resistances, changed IV abx to ertapenem on 06/26 - will need picc line/mid line (likely 10-14days) for extermination inspector abx on discharge - UA will need to be tested after treatment to ensure resolution of hematuria. - Continue PVR bladder scans, pt reports difficulty with home self cath - would not recommend this due to hx of uti, will need better education on at home cath (2) Urgency incontinence: Secondary to radiation therapy. 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 - Prior urology notes (10/08/2019) indicate it is long-standing and requires no inpatient changes. - Follow with outpatient urologist. (4) Accidental acetaminophen overdose: Was taking ~4g of acetaminophen daily for approx. 3-4 weeks (since Erast[facility] nksgiving). - Finished NAC - Gastroenterology consulted - appreciate recs - LFTs downtrending & no indication of synthetic dysfunction. Likely no major long-term sequelae. Follow LFTs with am labs - Presumed [place] syndrome per gi. Dr. Lala follows pt as an outpt and will need follow up on dc. (5) Guaiac positive stools: This can be secondary to Tylenol overdose. BP and HR stable; doubt ongoing gastrointestinal hemorrhage. - Hgb now improving, monitor for trend back up - Holding eliquis for afib, not on chemical dvt ppx - GI consulted - recommend cscope as outpt - Will check iron studies today and LDH for hemolysis (6) Diarrhea: - Worsening, 4 x today already - Stool sample to test for c. diff has not yet been obtained as pt unable to give adequate sample. - Reports as foul smelling and change in color - likely c diff with initiation of antibiotics - Continue probiotic for now - Will upgrade diet to full liquid and see if she tolerates for lunch, if no issues can transition to a DM/HH diet (7) Hypertension: BP lower overnight, while awake is 150s/75 today. - Continue home amlodipine, beta-debra (8) Paroxysmal A-fib: Currently sinus rhythm. On beta-debra and anticoagulation at baseline. - Continue home metoprolol 25 mg PO BID, rate controlled - Hold home anticoagulation (eliquis 5 mg bid) (9) Hypokalemia: - Likely due to increased diarrhea, liquid diet, replaced. - Follow with am bmp (10) CLL (chronic lymphocytic leukemia): No inpatient needs. - Continue Ibrutinib 280 mg daily - Follow with heme/onc in [place] and has follow up appointments scheduled within few months. (11) Diabetes: A1c was 6.6% in 09/2019. - Hold home oral meds - A1c =5.8 on 06/26 - Continue long-acting 20 units HS - Sliding scale insulin with accuchecks achs - better control of glucose in past 24 hours without significant lows or highs. - Full liquid diet, titrate if tolerates. (12) DVT prophylaxis: SCDs, ambulatory - Hold eliquis for now, hgb trending up Admission and Anticipated Discharge Date Admission Date: June 24, 2020 Supervising Physician Co-Signing Physician Notes Attending Attestation: Chart reviewed in detail, care plan d/w ARIA Christiansen. I agree with the chavira components of her documentation. Kannan Garcia MD Subjective The patient was seen and examined this morning. Pt states she has had numerous episodes of diarrhea (4 so far today), and a little nausea in the past 24 hours, relieved with Reglan, but denies abd pain, bloating. She has been unable to provide an adequate stool specimen since yesterday afternoon, but will attempt again today. Pt reports issues with diarrhea s/p radiation and cancer hx, but that this has changed in the past few days to being a foul smelling and different color since being in the hospital. Denies blood in stool. Tolerating liquid diet without issues, but would like to try more solids. Pt denies dysuria, hematuria, pyuria. Feels that she sometimes cannot empty fully and has previously tried to self cath at home, but states this is very difficult. Denies fever, chills or sweats. Pt has been up and walking without difficulty about the vera. Review of Systems Review of Systems: Constitutional: No fever, sweats or chills Eyes: No diplopia, no worsening or blurred vision ENT: normal hearing, no trouble swallowing Respiratory: No cough, sputum, dyspnea at rest or on exertion Cardiovascular: No chest pain, tightness or palpitations Abdomen: As per HPI, +nausea and diarrhea, no pain, vomiting or constipation Musculoskeletal: No joint pain, calf pain, swelling Neurologic: No weakness, numbness/tingling, or balance problems Psychiatric: No anxiety or depression Skin: No rash or itch Physical Exam Physical Exam: General: awake, alert, no apparent distress, sitting up in bedside chair Head: Normocephalic, atraumatic ENT: PERRL, EOMI, no pharyngeal exudate, mucous membranes moist Chest: Clear to auscultation, on room air, no adventitious breath sounds Cardiac: Regular rate and rhythm, no murmur, no JVD, normal peripheral pulses, good capillary refill Abdominal: NABS x 4 quadrants, soft, nondistended, nontender to palpation, no rebound or guarding Extremities: Normal inspection, few areas of ecchymosis over arms s/p blood draws, no peripheral edema or erythema, calfs nontender to palpation Psych: Normal mood and affect Neuro: AAO x 3, strength intact bilaterally and rated 5/5, no motor deficits, speech is clear, no peripheral sensory deficits Results & Data Results & Data ([facility]) Vital Signs (Past 12 Hours) Vital Signs Temp Pulse Resp BP Pulse Ox 06/27/20 07:27 36.7 C 84 16 157/76 H 94 06/26/20 23:01 36.9 C 83 18 112/71 95 PG Care Time/CCT Total # of Minutes Spent Total Time Spent with Patient: Total time spent is greater than 50% in coordination of care (as documented) at patient's floor/unit and/or counseling patient: Coding Level of Care Code 20266 Inpt Consult Level 3 Diagnoses Urinary tract infection N39.0; R31.9 Hematuria presence: with hematuria Urinary tract infection type: site unspecified Urgency incontinence N39.41 Bilateral hydronephrosis N13.30 Accidental acetaminophen overdose T39.1X1A Guaiac positive stools R19.5 Diarrhea R19.7 Hypertension I10 Paroxysmal A-fib I48.0 Hypokalemia E87.6 CLL (chronic lymphocytic leukemia) C91.90 Diabetes E11.9 DVT prophylaxis Z29.9 (1) Urinary tract infection Hematuria presence: with hematuria Urinary tract infection type: site unspecified Qualified Code(s): N39.0 - Urinary tract infection, site not specified; R31.9 - Hematuria, unspecified
[2020-06-27 10:57] LABS: Hepatitis A Antibody IgM NON-REACTIVE (NON-REACTIVE); Hepatitis B Core Antibody IgM NON-REACTIVE (NON-REACTIVE)
[2020-06-27] MEDS: ERTAPENEM SODIUM 1,000 MG in SODIUM CHLORIDE 0.9% 50 ML IV SCH (11:07)
[2020-06-27 11:58] LABS: Folate (Folic Acid) > 20.00 ng/ml (>5.38); Vitamin B12 971 pg/ml (193-986)
[2020-06-27] MEDS: INSULIN GLARGINE SOLOSTAR 100 UNITS/ML 3 ML PEN SQ SCH (20:48)
[2020-06-27] MEDS: LOPERAMIDE HCL 2 MG CAP PO PRN (20:53)
[2020-06-28] MEDS: IBRUTINIB 280 MG PO SCH (07:00)
[2020-06-28 07:11] LABS: BUN Creatinine Ratio 8.8 (10-20); Calcium 8.7 mg/dl (8.5-10.1); Creatinine Clr Calc Pharmacy 80.1 ml/min; Est GFR (African American) 98.8; Est GFR (Non-African American) 85.2; Potassium 3.1 mmol/L (3.5-5.1)
[2020-06-28] MEDS ORDERED: POTASSIUM CHLORIDE CRTAB 20 MEQ TABCR PO STA (08:44)
[2020-06-28] MEDS: INSULIN ASPART 100 UNITS/ML 3 ML PEN SC SCH ×2 (08:52→12:37)
--- NOTE | 2020-06-28 08:55 | Hospitalist Progress Note ---
Date of Service June 28, 2020 Assessment & Plan (1) Urinary tract infection: Hematuria was actually presenting issue. - Urine culture growing Proteus mirabilis - multiple abx resistances, changed IV abx to ertapenem on 06/26 - will plan on 7days total abx, place ultrasound-guided peripheral line today. Working with CM to arrange outpatient ertapenem infusions. 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 Prior urology notes (10/08/2019) indicate it is long-standing and requires no Rx-- bilateral stents were considered but not indicated at that time. HOWEVER - with recurrent UTIs, though -- stents??? does she have reflux of urinary tract? get her back to Dr Feliciano Dove in [facility] post-d/c (4) Accidental acetaminophen overdose: Was taking ~4g of acetaminophen daily for approx. 3-4 weeks (since ). - Finished NAC - Gastroenterology consulted - appreciate recs - LFTs downtrending & no indication of synthetic dysfunction. Likely no major long-term sequelae. Follow LFTs with am labs - Presumed [place] syndrome per gi. Dr. Lala follows pt as an outpt and will need follow up on dc. (5) Guaiac positive stools: This can be secondary to Tylenol overdose. BP and HR stable; doubt ongoing gastrointestinal hemorrhage. - Hgb now improving, monitor for trend back up - Resume eliquis for afib - GI consulted - recommend cscope as outpt - Will check iron studies today and LDH for hemolysis (6) Diarrhea: - Improved today with immodium - Stool sample to test for c. diff NEG - Continue probiotic for now - Will upgrade diet as she is toleratingand see if she tolerates for lunch, if no issues can transition to a DM/HH diet (7) Hypertension: BP lower overnight, while awake is 150s/75 today. - Continue home amlodipine, beta-debra (8) Paroxysmal A-fib: Currently sinus rhythm. On beta-debra and anticoagulation at baseline. - Continue home metoprolol 25 mg PO BID, rate controlled - Resume anticoagulation (eliquis 5 mg bid) (9) Hypokalemia: - Likely due to increased diarrhea, liquid diet, replaced. - Follow with am bmp (10) CLL (chronic lymphocytic leukemia): No inpatient needs. - Continue Ibrutinib 280 mg daily - Follow with heme/onc in [place] and has follow up appointments scheduled within few months. (11) Diabetes: A1c was 6.6% in 09/2019. - Hold home oral meds - A1c =5.8 on 06/26 - Continue long-acting 20 units HS - Sliding scale insulin with accuchecks achs - better control of glucose in past 24 hours without significant lows or highs. -Advance diet (12) DVT prophylaxis: SCDs, ambulatory -Resume eliquis CODE- DNR/DNI Dispo: Likely home within the next 24 hours. Admission and Anticipated Discharge Date Admission Date: June 24, 2020 Subjective Patient was seen and examined this morning. She reports feeling very well. Her diarrhea has significantly improved after having Imodium given last night. Her C. difficile came back negative. She denies any abdominal complaints, no nausea and is tolerating the full liquid diet without any issues. We will continue to advance her diet today. Patient denies any hematuria in her urine. Noted that when she wiped after BM this morning that the BM was solid but that she did see one bright red spot on toilet paper. She has been up and ambulating about the room without any difficulty. Patient is agreeable to home IV antibiotic infusion if this can be set up, so we will work with CM today regarding transition to home very soon. Review of Systems Review of Systems: Constitutional: No fever, sweats or chills Eyes: No diplopia, no worsening or blurred vision ENT: normal hearing, no trouble swallowing Respiratory: No cough, sputum, dyspnea at rest or on exertion Cardiovascular: No chest pain, tightness or palpitations Abdomen: No pain, nausea, vomiting, + diarrhea improved, no constipation Musculoskeletal: No joint pain, calf pain, swelling Neurologic: No weakness, numbness/tingling, or balance problems Psychiatric: No anxiety or depression Skin: No rash or itch Physical Exam Physical Exam: General: awake, alert, no apparent distress Head: Normocephalic, atraumatic ENT: PERRL, EOMI, no pharyngeal exudate, mucous membranes moist Chest: Clear to auscultation, on room air, no adventitious breath sounds Cardiac: Regular rate and rhythm, no murmur, no JVD, normal peripheral pulses, good capillary refill Abdominal: NABS x 4 quadrants, soft, nondistended, nontender to palpation, no rebound or guarding Extremities: Normal inspection, no peripheral edema or erythema, calfs nontender to palpation Psych: Normal mood and affect Neuro: AAO x 3, strength intact bilaterally and rated 5/5, no motor deficits, speech is clear, no peripheral sensory deficits Results & Data Results & Data ([facility]) Vital Signs (Past 12 Hours) Vital Signs Temp Pulse Resp BP BP Pulse Ox 06/28/20 07:00 36.3 C L 75 16 156/76 H 94 06/27/20 23:13 37 C 76 16 127/75 93 PG Care Time/CCT Total # of Minutes Spent Total Time Spent with Patient: Total time spent is greater than 50% in coordination of care (as documented) at patient's floor/unit and/or counseling p atient: Coding Level of Care Code 74132 Subseq Hosp Care Lvl 3 Diagnoses Urinary tract infection N39.0; R31.9 Hematuria presence: with hematuria Urinary tract infection type: site unspecified Urgency incontinence N39.41 Bilateral hydronephrosis N13.30 Accidental acetaminophen overdose T39.1X1A Guaiac positive stools R19.5 Diarrhea R19.7 Hypertension I10 Paroxysmal A-fib I48.0 Hypokalemia E87.6 CLL (chronic lymphocytic leukemia) C91.90 Diabetes E11.9 DVT prophylaxis Z29.9 (1) Urinary tract infection Hematuria presence: with hematuria Urinary tract infection type: site unspecified Qualified Code(s): N39.0 - Urinary tract infection, site not specified; R31.9 - Hematuria, unspecified
[2020-06-28] MEDS: MAGNESIUM OXIDE 400 MG TAB PO SCH (09:04)
[2020-06-28] MEDS: METOPROLOL TARTRATE 25 MG TAB PO SCH (09:04)
[2020-06-28] MEDS: ADVANCED PROBIOTIC 1250 MG CAPSULE PO SCH (09:04)
[2020-06-28] MEDS: VITAMIN B COMPLEX TAB PO SCH (09:04)
[2020-06-28] MEDS: ZINC SULFATE 220 MG CAPSULE PO SCH (09:04)
[2020-06-28] MEDS: amLODIPine BESYLATE 5 MG TAB PO SCH (09:04)
[2020-06-28] MEDS: CALCIUM CARBONATE 1250MG TAB PO SCH (09:04)
[2020-06-28] MEDS: CALCIUM CITRATE 950 MG TAB PO SCH (09:04)
[2020-06-28] MEDS: FAMOTIDINE 40 MG TABLET PO SCH (09:05)
[2020-06-28 09:18] LABS: Hematocrit (blood only) 33.1 % (37-47); Mean Corpuscular Hemoglobin 31.5 pg (25-34); Mean Corpuscular Hgb Conc 33.2 g/dL (32-36); Mean Corpuscular Volume 94.8 fL (80-100); RDW Coefficient of Variation 15.8 % (11.5-14.5); RDW Standard Deviation 54.9 fL (36.4-46.3); Red Blood Count 3.49 M/uL (4.2-5.4); White Blood Count 4.82 K/uL (4.8-10.8)
[2020-06-28 09:45] LABS: Platelet Count 113 K/uL (130-400); Platelet Estimate Normal (Normal)
[2020-06-28] MEDS ORDERED: CARBOHYDRATES FOR HYPOGLYCEMIA PO PRN (10:45)
[2020-06-28] MEDS ORDERED: GLUCAGON FOR INJ 1 MG VIAL IM PRN (10:45)
[2020-06-28] MEDS ORDERED: GLUCOSE 40% GEL 15 GM TUBE PO PRN (10:45)
[2020-06-28] MEDS ORDERED: GLUCOSE 10 TABS/TUBE PO PRN (10:45)
[2020-06-28] MEDS ORDERED: DEXTROSE 50% 50 ML SYRINGE IV PRN (10:45)
[2020-06-28] MEDS: ERTAPENEM SODIUM 1,000 MG in SODIUM CHLORIDE 0.9% 50 ML IV SCH (11:54)
--- NOTE | 2020-06-28 13:38 | Discharge Summary ---
Date of Service June 28, 2020 Admission HPI Per Admitting Provider Patient is a 79-year-old female who presents with blood in her undergarments which was concerning for possible urinary tract infection as well as gastrointestinal losses. She reports that she has had some lower back and flank pain and has been taking 2 Tylenol rapid release capsules approximately every 4 hours for pain. She reports that she has had issues after taking Tylenol previously. She denies chest pain or shortness of breath but she does endorse nausea without vomiting. Denies fevers, she is unsure of the dose of Tylenol and does not know how much Tylenol to take in a maximum daily dose. She reports that she has been taking that amount of Tylenol since approximately gi which is 4 to 6 weeks Patient also reports she has a history of atrial fibrillation for which she takes 5 mg of Eliquis daily for long-term anticoagulation. Admission Exam Per Admitting Provider Physical Exam: General: Alert. nontoxic. Skin: Warm, dry, Head: Atraumatic Ears, nose, mouth and throat: airway patent Cardiovascular: Normal peripheral perfusion, S1-S2 regular and rhythm no murmurs rubs gallops Respiratory: no respiratory distress lungs clear to auscultation bilaterally Gastrointestinal: Non distended, no tenderness no flank tenderness no tenderness with percussion of the CV angle this is a nonsurgical abdomen Musculoskeletal: No deformity Principal Diagnosis Proteus Mirabilis UTI Anemia Acetaminophen overdose, accidental Discharge Exam Physical Exam: General: awake, alert, no apparent distress Head: Normocephalic, atraumatic ENT: PERRL, EOMI, no pharyngeal exudate, mucous membranes moist Chest: Clear to auscultation, on room air, no adventitious breath sounds Cardiac: Regular rate and rhythm, no murmur, no JVD, normal peripheral pulses, good capillary refill Abdominal: NABS x 4 quadrants, soft, nondistended, nontender to palpation, no rebound or guarding Extremities: Normal inspection, no peripheral edema or erythema, calfs nontender to palpation Psych: Normal mood and affect Neuro: AAO x 3, strength intact bilaterally and rated 5/5, no motor deficits, speech is clear, no peripheral sensory deficits Discharge Data Allergies Allergy/AdvReac Type Severity Reaction Status Date / Time nitrofurantoin Allergy Mild tachycardia Verified 06/24/20 10:09 aspirin Allergy Unknown unknown Verified 12/26/20 10:09 duloxetine AdvReac Severe SEVERE Verified 06/24/20 10:09 VOMITING caffeine AdvReac Intermediate racing Verified 06/24/20 10:09 heart Sulfa (Sulfonamide AdvReac Intermediate Tinnitis Verified 06/24/20 10:09 Antibiotics) Consultations 06/24/20 11:09 ED Decision to Admit Stat 06/24/20 17:27 Consult Gastroenterology Routine Ordered Studies 06/24/20 08:47 CT abd pelvis IV con only Stat Hospital Course (1) Urinary tract infection: Hematuria was actually presenting issue. - Urine culture growing Proteus mirabilis - multiple abx resistances, changed IV abx to ertapenem on 06/26 - will plan on 7days total abx, place ultrasound-guided peripheral line today. CM assisted to have home infusion set up to complete course. 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 - Prior urology notes (10/08/2019) indicate it is long-standing and requires no Rx-- bilateral stents were considered but not indicated at that time. - HOWEVER - with recurrent UTIs, though -- stents??? - does she have reflux of urinary tract? - get her back to Dr Feliciano Dove in [facility] post-d/c (4) Accidental acetaminophen overdose: Was taking ~4g of acetaminophen daily for approx. 3-4 weeks (since ). - Finished NAC - Gastroenterology consulted - appreciate recs - LFTs downtrending & no indication of synthetic dysfunction. Likely no major long-term sequelae. Follow LFTs with am labs - Presumed [place] syndrome per gi. Dr. Lala follows pt as an outpt and will need follow up on dc. (5) Guaiac positive stools: This can be secondary to Tylenol overdose. BP and HR stable; doubt ongoing gastrointestinal hemorrhage. - Hgb now improving, monitor for trend back up - Resume eliquis for afib - GI consulted - recommend cscope as outpt - Will check iron studies today and LDH for hemolysis (6) Diarrhea: - Improved today with immodium - Stool sample to test for c. diff NEG - Continue probiotic for now - Will upgrade diet as she is toleratingand see if she tolerates for lunch, if no issues can transition to a DM/HH diet (7) Hypertension: - Continue home amlodipine, beta-debra (8) Paroxysmal A-fib: - Currently sinus rhythm. On beta-debra and anticoagulation at baseline. - Continue home metoprolol 25 mg PO BID, rate controlled - Resume anticoagulation (eliquis 5 mg bid) on 06/28 (9) Hypokalemia: - Likely due to increased diarrhea, liquid diet, replaced. - Follow with am bmp - improved (10) CLL (chronic lymphocytic leukemia): - No inpatient needs. - Continue Ibrutinib 280 mg daily - Follow with heme/onc in [place] and has follow up appointments scheduled within few months. (11) Diabetes: - A1c was 6.6% in 09/2019. - Hold home oral meds - A1c =5.8 on 06/26 - Continue long-acting 20 units HS - Sliding scale insulin with accuchecks achs - better control of glucose in past 24 hours without significant lows or highs. - Advance diet (12) DVT prophylaxis: SCDs, ambulatory -Resume eliquis CODE- DNR/DNI Dispo: Home with home health services Total Time Total Time Spent Total Time Spent (In Minutes): 45 minutes Discharge Plan Discharge Items Patient Disposition: Home - Home Health Services Reason For Visit: UTI Discharge Diagnosis: Urinary Tract Infection, Anemia Condition on Discharge: Good Activity: Resume your previous activity Lifting: Gradually increase as tolerated Bathing: No limitations Exercise/Sports: Gradually increase as tolerated Driving/Machine Use: No limitations Weightbearing: Full weightbearing Non-emergency contact: Primary Care Provider Call non-emergency contact if: you have any medication questions, your symptoms worsen and you have a fever Follow-up/Referrals: Feliciano Dove [Other] (Urology with Giselle Hines) Candelario Valdes [Primary Care Provider] - (Office will call patient with appointment date and time) Toni Tijerina MD [Physician] - (Colonoscopy) Diet: Carb Consistent or DM2 Addtl Attending Provider Instructions: You were admitted to [facility] due to blood in urine and diagnosed with Urinary tract infection,( proteus mirabilis) which was resistant to multiple antibiotics requiring treatment with IV ertapenem. During your stay here you were treated with supportive care, medications and IV antibiotics and your symptoms improved. Imaging studies which were completed include abdomen and pelvis CT, and were abnormal showing the chronic severe bilateral hydroureteronephrosis which was known about previously since September 2019, also showed thickening which represented superimposed infection. Medications: Continue taking you medications as prescribed Continue IV ertapenem daily to complete a 7-day course, last dose will be on 07/02/2020. Appointments: Follow-up with: PCP within 1 week, an appointment has been requested for you. Gastroenterology, Dr. Tijerina within 4 weeks for outpatient colonoscopy, please call to schedule an appointment Oncology/hematology as previously scheduled Urology, Dr. Feliciano Dove, [facility], please call to schedule an appointment there. Please keep routine follow-up with your financial analysis manager as previously scheduled. You do not need to be seen by cardiology in regards to this hospitalization at this time. Pending Studies at Discharge: No Stand-Alone Forms: My [facility] [place] [employer], Smoking Cessation Medications and DC Order Prescriptions: New ertapenem 1 gram recon soln 1 g IV DAILY Qty: 4 RF: 0 Continued [id number] (BILBERRY EXTRACT) 1 CAP capsule 1 cap PO QD Qty: 0 RF: 0 CRANBERRY-VITAMIN C-VITAMIN E (CRANBERRY) 1 CAP capsule 2 capsules PO DAILY Qty: 0 RF: 0 famotidine 40 mg tablet 40 mg PO QAM RF: 0 amlodipine 5 mg tablet 10 mg PO QAM RF: 0 pravastatin 10 mg tablet 10 mg PO HS RF: 0 insulin aspart U-100 [Novolog U-100 Insulin aspart] 100 unit/mL solution 6 unit subcut TID RF: 0 glimepiride 4 mg tablet 4 mg PO QAM RF: 0 zinc 50 mg Tablet 50 mg PO QAM RF: 0 B-complex with vitamin C Tablet 1 tab PO DAILY RF: 0 cholestyramine (with sugar) 4 gram powder 1 ea PO BID PRN (Reason: .) RF: 0 Basaglar KwikPen U-100 Insulin 100 unit/mL (3 mL) insulin pen 20 unit SUBCUT HS RF: 0 Probiotic 3 billion cell Capsule 3,000 mmu cells PO QAM RF: 0 Imbruvica 280 mg tablet 280 mg PO QAM RF: 0 Glucosamine Chondroitin 550-30-1 mg Capsule 1 cap PO DAILY RF: 0 Flexseed Oil 1 cap PO DAILY RF: 0 Garlic Capsule 1 cap PO DAILY RF: 0 calcium carbonate [Calcium 600] 600 mg calcium (1,500 mg) Tablet 600 mg PO DAILY RF: 0 magnesium oxide 400 mg (241.3 mg magnesium) tablet 400 mg PO DAILY RF: 0 calcium citrate 200 mg (950 mg) Tablet 200 mg PO DAILY RF: 0 cholecalciferol (vitamin D3) [Vitamin D3] 25 mcg (1,000 unit) Tablet 0 mcg PO DAILY RF: 0 omega [id number] oil [Fish Oil] 1,200 (144-216) mg Capsule 1 cap PO DAILY RF: 0 metoprolol tartrate 25 mg Tablet 25 mg PO BID Qty: 60 RF: 0 Eliquis 5 mg Tablet 5 mg PO BID Qty: 60 RF: 0 Discharge Orders: Discharge Order (Routine); Ordered 06/28/20 Ordered By: Elvis Maguire/Other Patient Handouts: IV Catheter Site Care, Urinary Tract Infections in Women, IV Care: Using IV Antibiotics Admission Data Admit Date/Time: 06/24/20 15:02 Attending Provider: Elvis Finch Admit Provider: Kannan Cantu Primary Care Provider: Candelario Valdes Other Providers: Toni Tijerina Other Interventions: Discharge Summary Assessment (RN) Last Done: 06/28/20 13:45 Supervising Physician Co-Signing Physician Notes Patient seen and examined at bedside. During my face to face encounter, I performed a brief history of hospital stay and physical examination. I answered all of the patients questions and discussed case with patient and TAINA Christiansen. I reviewed above note and agree with it. Patient will followup with Dr. Dove as an outpatient due to recurrent UTIs. Coding Level of Care Code D/C Day Management >30 mins Diagnoses Urinary tract infection N39.0; R31.9 Hematuria presence: with hematuria Urinary tract infection type: site unspecified Urgency incontinence N39.41 Bilateral hydronephrosis N13.30 Accidental acetaminophen overdose T39.1X1A Guaiac positive stools R19.5 Diarrhea R19.7 Hypertension I10 Paroxysmal A-fib I48.0 Hypokalemia E87.6 CLL (chronic lymphocytic leukemia) C91.90 Diabetes E11.9 DVT prophylaxis Z29.9
[2020-06-28] MEDS: LOPERAMIDE HCL 2 MG CAP PO PRN (14:09)
[2020-06-28] MEDS ORDERED: APIXABAN 5 MG TABLET PO SCH (21:00)
== END 2020-06-28 15:29 | disposition home health service (06) | DRG 690 ==
LOC: ED 08:18 → 3N 15:02 → SUATTDRO 15:02 → 3N 17:10 → 3W 06-26 07:06

== ENCOUNTER 2021-02-19 09:51 | Inpatient (IN) ==
[2021-02-19] MEDS ORDERED: SODIUM CHLORIDE 0.9% 1000ML 1,000 ML IV ONE (11:05)
[2021-02-19] MEDS ORDERED: KETOROLAC TROMETHAMINE 15 MG/ML VIAL IV ONE (11:05)
[2021-02-19] MEDS ORDERED: MoRPHine SULFATE 4 MG/ML 1 ML CARP\\VIAL IV STA (11:05)
[2021-02-19] MEDS ORDERED: ONDANSETRON INJ 2 MG/ML 2 ML VIAL IV STA (11:05)
--- NOTE | 2021-02-19 11:10 | Emergency Department Note ---
Impression & Plan Acute pyelonephritis, Complicated UTI (urinary tract infection), Hydroureter, Back pain ED Provider Note NAME: ILIANA CALDWELL AGE: 80 SEX: F : 1940 ARRIVES VIA: Walk-In INFORMANT: Patient ED PROVIDER(S): Mateo Rubio DO CHIEF COMPLAINT: Right flank pain HPI: Patient is a 80-year-old female with a recent UTI treated with cefuroxime. She presents to the ER for right flank pain and back pain. She notes about 10 days ago she had urinary frequency and dysuria. The symptoms resolved with antibiotics for about 3 days. She started to have back pain bilaterally yesterday. It has worsened and now is on the right flank going to the right abdomen. She admits to nausea. Denies any dysuria, urgency, or frequency now. No chest pain or shortness of breath. No cough runny nose. No other exacerbating or remitting factors. ROS: See above HPI for pertinent positives & negatives. A total of 10 systems reviewed and were otherwise negative. PAST MEDICAL HISTORY:See Below PAST SURGICAL HISTORY:See Below FAMILY HISTORY:See Below SOCIAL HISTORY:See Below HOME MEDICATIONS:See Below ALLERGIES:See Below VITALS:See Below PHYSICAL EXAMINATION: GENERAL: Sitting up in bed, alert, well appearing, well nourished, no distress, non-toxic EYE EXAM: normal conjunctiva. OROPHARYNX: no exudate, no erythema, lips, buccal mucosa, and tongue normal and mucous membranes are moist NECK: supple, no nuchal rigidity, no adenopathy, non-tender LUNGS: Clear to auscultation. Normal chest wall mechanics HEART: no murmurs, S1 normal and S2 normal ABDOMEN: abdomen soft, non-tender, normo-active bowel sounds, no masses, no rebound or guarding. UPPER EXTREMITIES: upper extremities are grossly normal. LOWER EXTREMITIES: No pitting edema. NEURO EXAM: Normal sensorium, cranial nerves II-XII grossly intact, normal speech, no gross weakness of arms, no gross weakness of legs. MEDICAL DECISION MAKING: Patient is a 80-year-for back pain. She was recently treated for UTI for about 7 days and her symptoms resolved for about 2 to 3 days and now have recurred. Denies any fevers. IV was established blood was obtained. Labs show leukocytosis 14,000. No significant anemia. BMP with a elevated glucose of 200. T bili was elevated 2.2. LFTs and lipase was unremarkable. UA does suggest UTI although contaminated with multiple epithelial cells. Previous cultures were reviewed patient was susceptible to vancomycin but no oral meds. CT abdomen pelvis shows likely a sending infection with bilateral hydroureter. Bladder is decompressed. No benefit from a Spears. Patient was given IV antibiotics updated bedside discussed with the hospitalist admitted for further work-up as she failed outpatient treatment and has pyelonephritis. Triage Nursing notes reviewed. Limited review of prior medical records performed Vital Signs: reviewed and remarkable for no significant abnormalities Differential diagnosis: Differential diagnoses includes but is not limited to gastritis, peptic ulcer disease, GERD, gallbladder disease, pancreatitis, small bowel obstruction, acute coronary syndrome, pericarditis, ischemic bowel, irritable bowel disease, irritable bowel syndrome, appendicitis, diverticulitis, malignancy, hernia, urinary tract infection, torsion, perforation, trauma, infectious. ER treatment provided: See below Diagnostics interpreted by me: ECG: none Cardiac Monitoring: An order was placed for continuous cardiac monitoring. The monitor shows a rate of 70 with sinus rhythm. Laboratory studies: As stated above and show below. Imaging studies: CT abdomen pelvis discussed above Consultation(s): Discussed with hospitalist for further evaluation Procedures: none Critical Care: None Past Med/Surg History Medical History Acute GI bleeding Bilateral hydronephrosis Cataract Cervical cancer Diabetes Elevated bilirubin Hypertension Recurrent UTI Transaminitis Urgency incontinence Urinary tract infection Surgical History H/O: hysterectomy S/P appendectomy S/P cataract surgery both eyes S/P cholecystectomy Social History Smoking Status: Never smoker Second Hand Exposure: No; Hx Alcohol Use: No Hx Substance Use: No Preferred Language: Slovenian Communication Ability: Effective 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 Beliefs That Will Affect Care: None marital status: Current Living Situation: Spouse current occupational status: retired current occupation: [employer] How many Children do You have: 2 Feels Safe at Home: Yes Childhood Exposure to Second-Hand Smoke: No Dental Care, Regularly: No Physical Activity Frequency: Does not Exercise Seatbelt Use: always Sunscreen Use: No (hardly in sun d/t medicine ) Assistive Devices: Glasses Allergies Allergies Allergy/AdvReac Type Severity Reaction Status Date / Time nitrofurantoin Allergy Mild tachycardia Verified 02/19/21 11:39 aspirin Allergy Unknown INCREASES Verified 02/19/21 11:39 BLEEDING duloxetine AdvReac Severe SEVERE Verified 02/19/21 11:39 VOMITING caffeine AdvReac Intermediate racing Verified 02/19/21 11:39 heart Sulfa (Sulfonamide AdvReac Intermediate Tinnitis Verified 02/19/21 11:39 Antibiotics) acetaminophen [From Tylenol] AdvReac liver bleed Verified 02/19/21 11:39 lisinopril AdvReac cough, Verified 02/19/21 11:39 white "stuff" all over lungs Home Meds Home Medications Medication Instructions Recorded Confirmed cranberry-vitamin C-flaxseed 2 cap PO QDL #0 11/03/12 02/19/21 capsule amlodipine 5 mg tablet 5 mg PO BID 06/24/20 02/19/21 flaxseed oil 1,000 mg capsule 1,000 mg PO QDL #0 06/24/20 02/19/21 garlic 500 mg PO QDL #0 06/24/20 02/19/21 glucosamine sulf dipot 1 cap PO QDL 06/24/20 02/19/21 chlr,msm,chond 550 mg-C 30 mg-aleena 1 mg capsule (Glucosamine Chondroitin) insulin aspart U-100 100 unit/mL 6 unit SUBCUT TID 06/24/20 02/19/21 subcutaneous solution (Novolog U-100 Insulin aspart) lactobacillus combination no.4 3 3,000 mmu cells PO QAM 06/24/20 02/19/21 billion cell capsule (Probiotic) magnesium oxide 400 mg (241.3 mg 400 mg PO BID 06/24/20 02/19/21 magnesium) tablet omega 9-hyg-tet-fish oil 1,200 mg 1 cap PO QDL 06/24/20 02/19/21 (144 mg-216 mg) capsule (Fish Oil) atorvastatin 10 mg tablet 10 mg PO HS 11/10/20 02/19/21 buspirone 15 mg tablet 15 mg PO TID 11/10/20 02/19/21 ibrutinib 280 mg tablet (Imbruvica) 280 mg PO QAM 11/10/20 02/19/21 multivitamin 1 tab PO QDL 11/10/20 02/19/21 omeprazole 40 mg capsule,delayed 40 mg PO QAM 11/10/20 02/19/21 release ondansetron HCl 4 mg tablet 4 mg PO Q8H PRN 11/10/20 02/19/21 oxybutynin chloride 10 mg 10 mg PO HS 11/10/20 02/19/21 tablet,extended release 24 hr potassium chloride 10 mEq 10 meq PO BID 11/10/20 02/19/21 capsule,extended release calcium carbonate 600 mg calcium 600 mg PO BID tab 12/08/20 02/19/21 (1,500 mg) tablet (Calcium) cholecalciferol (vitamin D3) 25 1,000 unit PO QDL tab 12/08/20 02/19/21 mcg (1,000 unit) tablet (Vitamin D3) ascorbic acid (vitamin C) 500 mg 500 g PO BID 12/31/20 02/19/21 tablet (Vitamin C) ferrous sulfate 325 mg (65 mg 325 mg PO BID 12/31/20 02/19/21 iron) tablet (FeroSul) vitamin B complex 1 tab PO QDL 12/31/20 02/19/21 cefuroxime axetil 250 mg tablet 250 mg PO BID 02/19/21 02/19/21 Previous Rx's Medication Instructions Recorded apixaban 5 mg tablet (Eliquis) 5 mg PO BID #60 tab 10/08/19 metoprolol tartrate 25 mg tablet 25 mg PO BID #60 tab 10/08/19 insulin glargine 100 unit/mL (3 26 unit SUBCUT HS #15 ml 01/04/21 mL) subcutaneous pen (Basaglar KwikPen U-100 Insulin) Results & Data (ED) Vital Signs Vital Signs - 24 hr 02/19/21 10:00 02/19/21 11:22 02/19/21 12:04 Temperature 36.9 C Temperature Source Oral Pulse Rate 74 74 74 Pulse Rate [Left Finger] Pulse Rate from SpO2 Sensor 73 Pulse Rhythm Regular Regular Pulse Rhythm [Left Finger] Pulse Strength Normal Pulse Strength [Left Finger] Respiratory Rate 20 24 23 Respiratory Effort / Characteristics Non-Labored Spontaneous Respiratory Depth Normal Respiratory Pattern Regular Blood Pressure 144/67 H 145/72 H Blood Pressure [Right Arm] Blood Pressure Mean 92 96 Blood Pressure Mean [Right Arm] Pulse Oximetry 96 96 95 Oxygen Delivery Method Room Air Room Air Sepsis Recent Fever Within 48 Hours No Sepsis New/Unexplained Change in Mental Status N/A Sepsis Action Taken by Nursing No Action Required 02/19/21 12:10 02/19/21 12:20 02/19/21 12:30 Temperature Temperature Source Pulse Rate 73 74 75 Pulse Rate [Left Finger] Pulse Rate from SpO2 Sensor 72 75 76 Pulse Rhythm Pulse Rhythm [Left Finger] Pulse Strength Pulse Strength [Left Finger] Respiratory Rate 17 16 16 Respiratory Effort / Characteristics Respiratory Depth Respiratory Pattern Blood Pressure Blood Pressure [Right Arm] Blood Pressure Mean Blood Pressure Mean [Right Arm] Pulse Oximetry 91 95 93 Oxygen Delivery Method Sepsis Recent Fever Within 48 Hours Sepsis New/Unexplained Change in Mental Status Sepsis Action Taken by Nursing 02/19/21 12:40 02/19/21 12:50 02/19/21 13:00 Temperature Temperature Source Pulse Rate 75 82 79 Pulse Rate [Left Finger] Pulse Rate from SpO2 Sensor 76 82 80 Pulse Rhythm Pulse Rhythm [Left Finger] Pulse Strength Pulse Strength [Left Finger] Respiratory Rate 15 23 20 Respiratory Effort / Characteristics Respiratory Depth Respiratory Pattern Blood Pressure 170/83 H Blood Pressure [Right Arm] Blood Pressure Mean 112 Blood Pressure Mean [Right Arm] Pulse Oximetry 93 95 94 Oxygen Delivery Method Sepsis Recent Fever Within 48 Hours Sepsis New/Unexplained Change in Mental Status Sepsis Action Taken by Nursing 02/19/21 13:01 02/19/21 14:00 02/19/21 15:00 Temperature Temperature Source Pulse Rate 78 72 Pulse Rate [Left Finger] 80 Pulse Rate from SpO2 Sensor 78 73 Pulse Rhythm Pulse Rhythm [Left Finger] Regular Pulse Strength Pulse Strength [Left Finger] Normal Respiratory Rate 20 16 17 Respiratory Effort / Characteristics Non-Labored Spontaneous Respiratory Depth Normal Respiratory Pattern Regular Blood Pressure 152/68 H 136/60 Blood Pressure [Right Arm] 153/68 H Blood Pressure Mean 96 85 Blood Pressure Mean [Right Arm] 96 Pulse Oximetry 95 93 95 Oxygen Delivery Method Room Air Room Air Sepsis Recent Fever Within 48 Hours Sepsis New/Unexplained Change in Mental Status Sepsis Action Taken by Nursing Laboratory Data Result diagrams: 02/19/21 11:30 02/19/21 11:30 Lab Results 02/19/21 02/19/21 02/19/21 Range/Units 11:22 11:30 11:30 WBC 14.98 H (4.8-10.8) K/uL RBC 4.41 (4.2-5.4) M/uL Hgb 13.8 (12.0-16.0) g/dL Hct 40.5 (37-47) % MCV 91.8 (80-100) fL MCH 31.3 (25-34) pg MCHC 34.1 (32-36) g/dL RDW Std Deviation 47.6 H (36.4-46.3) fL RDW Coeff of Matthew 14.1 (11.5-14.5) % Plt Count 136 (130-400) K/uL MPV 12.8 H (7.4-10.4) fL Immature Gran % (Auto) 0.3 % Neut % (Auto) 82.8 % Lymph % (Auto) 9.6 % [place] % (Auto) 7.1 % Eos % (Auto) 0.1 % Baso % (Auto) 0.1 % Neut # (Auto) 12.41 H (1.4-6.5) K/uL Lymph # (Auto) 1.44 (1.2-3.4) K/uL [place] # (Auto) 1.07 H (0.11-0.59) K/uL Eos # (Auto) 0.01 (0-0.5) K/uL Baso # (Auto) 0.01 (0-0.2) K/uL Immature Gran # (Auto) 0.04 H (0.00-0.02) K/uL Sodium 136 (136-145) mmol/L Potassium 4.0 (3.5-5.1) mmol/L Chloride 105 (98-107) mmol/L Carbon Dioxide 24 (21-32) mmol/L Anion Gap 7.0 (3-11) BUN 23 H (7-18) mg/dl Creatinine 1.09 (0.6-1.2) mg/dl Est Cr Clr Drug Dosing 48.6 ml/min Est GFR ( Amer) 56.3 ml/min Est GFR (Non-Af Amer) 48.6 ml/min BUN/Creatinine Ratio 21.1 H (10-20) Glucose 200 H (70-99) mg/dl Calcium 9.0 (8.5-10.1) mg/dl Total Bilirubin 2.2 H (0.2-1) mg/dl AST 14 L (15-37) U/L ALT 25 (12-78) U/L Alkaline Phosphatase 84 (45-117) U/L Total Protein 6.7 (6.4-8.2) gm/dl Albumin 3.4 (3.4-5.0) gm/dl Globulin 3.3 (2.5-4.0) gm/dl Albumin/Globulin Ratio 1.0 (0.9-2) Lipase 374 (73-393) U/L Urine Color Red Urine Appearance Cloudy A (Clear) Urine pH 6.5 (4.5-7.5) Ur Specific [place] 1.025 (1.000-1.030) Urine Protein 3+ H (Negative) Urine Glucose (UA) Negative (Negative) Urine Ketones Negative (Negative) Urine Blood 3+ H (Negative) Urine Nitrite Negative (Negative) Urine Bilirubin 1+ H (Negative) Urine Urobilinogen Negative (Negative) Ur Leukocyte Esterase 1+ H (Negative) Urine RBC >30 H (0-4) /hpf Urine WBC >30 H (0-5) /hpf Ur Epithelial Cells >30 H (0-5) /lpf Urine Bacteria 1+ H (Negative) COVID-19 Eval Order SARS-CoV-2 (PCR) (Negative) 02/19/21 02/19/21 Range/Units 12:42 12:42 WBC (4.8-10.8) K/uL RBC (4.2-5.4) M/uL Hgb (12.0-16.0) g/dL Hct (37-47) % MCV (80-100) fL MCH (25-34) pg MCHC (32-36) g/dL RDW Std Deviation (36.4-46.3) fL RDW Coeff of Matthew (11.5-14.5) % Plt Count (130-400) K/uL MPV (7.4-10.4) fL Immature Gran % (Auto) % Neut % (Auto) % Lymph % (Auto) % [place] % (Auto) % Eos % (Auto) % Baso % (Auto) % Neut # (Auto) (1.4-6.5) K/uL Lymph # (Auto) (1.2-3.4) K/uL [place] # (Auto) (0.11-0.59) K/uL Eos # (Auto) (0-0.5) K/uL Baso # (Auto) (0-0.2) K/uL Immature Gran # (Auto) (0.00-0.02) K/uL Sodium (136-145) mmol/L Potassium (3.5-5.1) mmol/L Chloride (98-107) mmol/L Carbon Dioxide (21-32) mmol/L Anion Gap (3-11) BUN (7-18) mg/dl Creatinine (0.6-1.2) mg/dl Est Cr Clr Drug Dosing ml/min Est GFR ( Amer) ml/min Est GFR (Non-Af Amer) ml/min BUN/Creatinine Ratio (10-20) Glucose (70-99) mg/dl Calcium (8.5-10.1) mg/dl Total Bilirubin (0.2-1) mg/dl AST (15-37) U/L ALT (12-78) U/L Alkaline Phosphatase (45-117) U/L Total Protein (6.4-8.2) gm/dl Albumin (3.4-5.0) gm/dl Globulin (2.5-4.0) gm/dl Albumin/Globulin Ratio (0.9-2) Lipase (73-393) U/L Urine Color Urine Appearance (Clear) Urine pH (4.5-7.5) Ur Specific [place] (1.000-1.030) Urine Protein (Negative) Urine Glucose (UA) (Negative) Urine Ketones (Negative) Urine Blood (Negative) Urine Nitrite (Negative) Urine Bilirubin (Negative) Urine Urobilinogen (Negative) Ur Leukocyte Esterase (Negative) Urine RBC (0-4) /hpf Urine WBC (0-5) /hpf Ur Epithelial Cells (0-5) /lpf Urine Bacteria (Negative) COVID-19 Eval Order Covid19 at [facility] SARS-CoV-2 (PCR) NEGATIVE (Negative) Administered Medications Discontinued Medications Sodium Chloride (Nss 1000ml) 1,000 mls @ 999 mls/hr IV .Q1H1M ONE Stop: 02/19/21 12:05 Last Infusion: 02/19/21 12:38 Dose: 0 mls/hr Documented by: [id number] Admin: 02/19/21 11:34 Dose: 999 mls/hr Documented by: [id number] Vancomycin HCl 2,250 mg/ (Sodium Chloride) 545 mls @ 200 mls/hr IV NOW ONE Stop: 02/19/21 15:12 Last Infusion: 02/19/21 15:49 Dose: 0 mls/hr Documented by: [id number] Admin: 02/19/21 12:58 Dose: 200 mls/hr Documented by: [id number] Ketorolac Tromethamine (Ketorolac Tromethamine 15 Mg/Ml Vial) 10 mg IV NOW ONE Stop: 02/19/21 11:06 Last Admin: 02/19/21 11:43 Dose: 10 mg Documented by: [id number] Morphine Sulfate (Morphine Sulfate 4 Mg/Ml 1 Ml Carp\\Vial) 4 mg IV NOW STA Stop: 02/19/21 11:06 Last Admin: 02/19/21 11:45 Dose: 4 mg Documented by: [id number] Ondansetron HCl (Ondansetron Inj 2 Mg/Ml 2 Ml Vial) 4 mg IV NOW STA Stop: 02/19/21 11:06 Last Admin: 02/19/21 11:38 Dose: 4 mg Documented by: [id number] Imaging Data Radiologist's Impression: Abdomen/Pelvis CT 02/19/21 11:07 CT SCAN OF THE ABDOMEN AND PELVIS WITHOUT IV CONTRAST CLINICAL HISTORY: Urinary tract infection. Right flank pain. COMPARISON STUDY: Abdominal CT dated 06/24/2020. TECHNIQUE: CT scan of the abdomen and pelvis is performed from the lung bases to the proximal femora. Images are reviewed in the axial, sagittal, and coronal planes. IV contrast was not administered for this examination. Note that the examination was performed in suboptimal fashion without oral and IV contrast. A dose lowering technique was utilized adhering to the principles of ALARA. CT DOSE: 884.18 mGy.cm FINDINGS: Lung bases: The heart is normal in size and without pericardial effusion. There are coronary artery calcifications. The lung bases are clear noting bibasilar scarring/atelectasis. There is a small hiatal hernia. Liver: The unenhanced liver is normal in size, contour, and attenuation. There is no intrahepatic biliary ductal dilatation. Gallbladder: Surgically absent noting clips in the gallbladder fossa. Spleen: Normal in size and attenuation. Pancreas: The unenhanced pancreas is mildly atrophic. Parenchymal calcifications suggesting chronic pancreatitis. Pancreatic cystic lesions are again noted and measure up to 12 mm. These remain typical for sidebranch IPMNs. Adrenal glands: Unremarkable. Kidneys: The unenhanced kidneys demonstrate cortical atrophy. There is severe bilateral hydroureteronephrosis. Both ureters are dilated to the level of the bladder. No obstructing calculus is clearly identified. There is urothelial thickening seen within the renal pelvis bilaterally and throughout both ureters with surrounding inflammation. There are no renal calculi identified. A 1.6 cm complex/hyperdense cyst is noted in the left upper pole. Abdominal vasculature: The abdominal aorta is normal in course and caliber noting advanced atherosclerotic calcification. Bowel: There is mild colonic diverticulosis without CT evidence of acute diverticulitis. Fecal retention is seen throughout the colon. There is no bowel obstruction. The appendix is not identified and reported surgically absent. Peritoneum: There is no intraperitoneal free air or abdominal ascites. Foci of induration within the ventral abdominal wall are likely related to subcutaneous injections. Lymphadenopathy: There are numerous mildly enlarged retroperitoneal lymph nodes which measure up to 11 mm in short axis. Pelvic viscera: The bladder is decompressed. The bladder wall appears thickened and irregular and there is pericystic inflammation. The uterus is surgically absent. No adnexal lesion is seen. There are small bilateral fat-containing inguinal hernias. Postoperative change is noted in the ventral wall of the pelvis. Skeletal structures: The skeletal structures are osteopenic. There is moderate to advanced lumbosacral spondylosis. Large posterior disc osteophyte complexes are seen at all lumbar levels. No lytic or blastic lesions are seen. IMPRESSION: 1. There is severe bilateral hydroureteronephrosis, not significantly changed as compared to 06/24/2020. The etiology remains unclear and is likely bladder related. No obstructing stone or lesion is identified. 2. The bladder is decompressed, and appears heterogeneously thick walled with surrounding inflammation. There is also significant urothelial thickening involving the ureters and renal pelvises with surrounding inflammation. Findings are typical for cystitis with bilateral ascending urinary tract infection. Cor relate with clinical findings and urinalysis. 3. Mildly enlarged retroperitoneal lymph nodes are likely reactive. 4. Additional findings as above ACT 112: Negative or not required by law. Electronically signed by: Reilly Mackey M.D. 02/19/2021 12:16 PM Discharge Plan Visit Data Chief Complaint: Urinary Symptoms Stated Complaint: UTI, BACK PAIN, BLEEDING ED Provider: Mateo Rubio Discharge Problem: Acute pyelonephritis, Complicated UTI (urinary tract infection), Hydroureter, Back pain Discharge Instructions Interventions: ED Discharge Assessment Last Done: 02/19/21 16:15
[2021-02-19 11:49] LABS: Basophils # (auto) 0.01 K/uL (0-0.2); Basophils % (auto) 0.1 %; Eosinophils # (auto) 0.01 K/uL (0-0.5); Eosinophils % (auto) 0.1 %; Hematocrit (blood only) 40.5 % (37-47); Hemoglobin 13.8 g/dL (12.0-16.0); Immature Granulocytes # (auto) 0.04 K/uL (0.00-0.02); Immature Granulocytes % (auto) 0.3 %; Lymphocytes # (auto) 1.44 K/uL (1.2-3.4); Lymphocytes % (auto) 9.6 %; Mean Corpuscular Hemoglobin 31.3 pg (25-34); Mean Corpuscular Hgb Conc 34.1 g/dL (32-36); Mean Corpuscular Volume 91.8 fL (80-100); Mean Platelet Volume 12.8 fL (7.4-10.4); Monocytes # (auto) 1.07 K/uL (0.11-0.59); Monocytes % (auto) 7.1 %; Neutrophils # (auto) 12.41 K/uL (1.4-6.5); Neutrophils % (auto) 82.8 %; Platelet Count 136 K/uL (130-400); RDW Coefficient of Variation 14.1 % (11.5-14.5); RDW Standard Deviation 47.6 fL (36.4-46.3); Red Blood Count 4.41 M/uL (4.2-5.4); White Blood Count 14.98 K/uL (4.8-10.8)
[2021-02-19 11:56] LABS: Appearance Urine Cloudy (Clear); Bilirubin Urine 1+ (Negative); Blood Urine 3+ (Negative); Color Urine Red; Glucose Urine UA Negative (Negative); Ketones Urine Negative (Negative); Leukocyte Esterase Urine 1+ (Negative); Nitrite Urine Negative (Negative); Protein Urine 3+ (Negative); Specific Gravity Urine 1.025 (1.000-1.030); Urobilinogen Urine Negative (Negative); pH Urine 6.5 (4.5-7.5)
[2021-02-19 12:07] LABS: Albumin Level 3.4 gm/dl (3.4-5.0); BUN Creatinine Ratio 21.1 (10-20); Creatinine Clr Calc Pharmacy 48.6 ml/min; Est GFR (African American) 56.3 ml/min; Est GFR (Non-African American) 48.6 ml/min
[2021-02-19 12:09] LABS: Bilirubin,Total 2.2 mg/dl (0.2-1); Globulin 3.3 gm/dl (2.5-4.0); Total Protein 6.7 gm/dl (6.4-8.2)
[2021-02-19 12:10] LABS: RBC Urine >30 /hpf (0-4); WBC Urine >30 /hpf (0-5)
[2021-02-19 12:11] LABS: Bacteria Urine 1+ (Negative); Epithelial Cell Urine >30 /lpf (0-5)
--- NOTE | 2021-02-19 12:18 | CT Scan Report ---
CT SCAN OF THE ABDOMEN AND PELVIS WITHOUT IV CONTRAST CLINICAL HISTORY: Urinary tract infection. Right flank pain. COMPARISON STUDY: Abdominal CT dated 06/24/2020. TECHNIQUE: CT scan of the abdomen and pelvis is performed from the lung bases to the proximal femora. Images are reviewed in the axial, sagittal, and coronal planes. IV contrast was not administered for this examination. Note that the examination was performed in suboptimal fashion without oral and IV contrast. A dose lowering technique was utilized adhering to the principles of ALARA. CT DOSE: 884.18 mGy.cm FINDINGS: Lung bases: The heart is normal in size and without pericardial effusion. There are coronary artery c alcifications. The lung bases are clear noting bibasilar scarring/atelectasis. There is a small hiata l hernia. Liver: The unenhanced liver is normal in size, contour, and attenuation. There is no intrahepatic margi iary ductal dilatation. Gallbladder: Surgically absent noting clips in the gallbladder fossa. Spleen: Normal in size and attenuation. Pancreas: The unenhanced pancreas is mildly atrophic. Parenchymal calcifications suggesting chronic p ancreatitis. Pancreatic cystic lesions are again noted and measure up to 12 mm. These remain typical for sidebranch IPMNs. Adrenal glands: Unremarkable. Kidneys: The unenhanced kidneys demonstrate cortical atrophy. There is severe bilateral hydroureteron ephrosis. Both ureters are dilated to the level of the bladder. No obstructing calculus is clearly id entified. There is urothelial thickening seen within the renal pelvis bilaterally and throughout both ureters with surrounding inflammation. There are no renal calculi identified. A 1.6 cm complex/hyper dense cyst is noted in the left upper pole. Abdominal vasculature: The abdominal aorta is normal in course and caliber noting advanced atheroscle rotic calcification. Bowel: There is mild colonic diverticulosis without CT evidence of acute diverticulitis. Fecal retent ion is seen throughout the colon. There is no bowel obstruction. The appendix is not identified and reported surgically absent. Peritoneum: There is no intraperitoneal free air or abdominal ascites. Foci of induration within the ventral abdominal wall are likely related to subcutaneous injections. Lymphadenopathy: There are numerous mildly enlarged retroperitoneal lymph nodes which measure up to 1 1 mm in short axis. Pelvic viscera: The bladder is decompressed. The bladder wall appears thickened and irregular and the re is pericystic inflammation. The uterus is surgically absent. No adnexal lesion is seen. There are small bilateral fat-containing inguinal hernias. Postoperative change is noted in the ventral wall of the pelvis. Skeletal structures: The skeletal structures are osteopenic. There is moderate to advanced lumbosacra l spondylosis. Large posterior disc osteophyte complexes are seen at all lumbar levels. No lytic or b lastic lesions are seen. IMPRESSION: 1. There is severe bilateral hydroureteronephrosis, not significantly changed as compared to 06/24/20. The etiology remains unclear and is likely bladder related. No obstructing stone or lesion is robyn ntified. 2. The bladder is decompressed, and appears heterogeneously thick walled with surrounding inflammatio n. There is also significant urothelial thickening involving the ureters and renal pelvises with surr ounding inflammation. Findings are typical for cystitis with bilateral ascending urinary tract infect ion. Correlate with clinical findings and urinalysis. 3. Mildly enlarged retroperitoneal lymph nodes are likely reactive. 4. Additional findings as above ACT 112: Negative or not required by law. Electronically signed by: Reilly Mackey M.D. 02/19/2021 12:16 PM
[2021-02-19] MEDS ORDERED: VANCOMYCIN HCL 2,250 MG in SODIUM CHLORIDE 0.9% 500 ML IV ONE (12:29)
[2021-02-19] MEDS ORDERED: VANCOMYCIN CONSULT ACTIVE PRN (12:29)
[2021-02-19] MEDS ORDERED: cefTRIAXone SODIUM 1,000 MG/50 ML BAG IV STA (13:25)
--- NOTE | 2021-02-19 13:56 | History & Physical Report ---
Date of Service February 19, 2021 Assessment & Plan (1) UTI (urinary tract infection): Plan: Patient with chronic urinary symptoms and un-resolving changing urine cultures - Vancomycin and Rocephin 1GM q24 coverage for now - Defer for continuation of Vvncomycin to rounding team - Consider ID consult- chronic UTI - Consider Urology consult while in house- patient has bilateral, chronic hydronephrosis. Already has appointment as outpatient for evaluation. - Follow [facility] - Urine cytology - Not septic appearing and normal renal indices - WBC 14 with NLR 7:1 (2) Dysuria: Plan: As above (3) History of cervical cancer: Plan: As above - urine cytology (4) Hypertension: Plan: Continue amlodipine and metoprlol (5) Diabetes: Plan: Continue basal bolus insulin - Continue Tresiba- equivalent to pharmacy - Aspart sliding scale CF 20 with ratio 1:15 - Goal <180 (6) Bilateral hydronephrosis: Plan: Chronic from May 2020 - No acute needs at this time, follow up with urology or in house consult (7) Chronic pancreatitis: Plan: Stable- continue with LR at maintenance - Lipase 374 (8) Paroxysmal A-fib: Plan: Currently in NSR - Continue Metoprolol - Continue Eliquis History of Present Illness Primary Care Provider: Keith Hutchinson, DO 80 YOF with past medical history: Obstructive uropathy, CLL, CKD III, chronic bilateral hydronephrosis, urinary in-coherence, cervical cancer (radiation), DM II. Patient has been on and off antibiotics since about November for urinary symptoms. She was originally treated for dysuria and hematuria by her PCP in November. She was started on Ciprofloxacin at that time. Symptoms returned in early December and unequivocal urine done at that time as she was on Pyridium, she was discharged on Levaquin. [id number] she was evaluated at [facility] for diarrhea and continued symptoms- review of PCP note- reveals that urine with >100,000 CFY of staph with susceptibility to Nitrofurantoin this was continued for 10 days, she had been 3 days without medication and return of symptoms leading her to go to her PCP on the 09 of February where she was then placed on cefuroxime 250 PO BID- this culture returned as CONS resistant to Oxacillin; TMP/SMX and susceptibility to Vancomycin. She returns to the EMD today for abdominal pain located in her lower back bilaterally with burning and hematuria on urination. She had some rigors and chills noted yesterday while in [facility]. She had minimal nausea on Friday without vomiting. In the EMD she was given a dose of Vancomycin, and CT scan of the abdomen performed. CT of abdomen with evidence of chronic pancreatitis, stable hydronephrosis, and possible ascending UTI. Patient will be admitted for tailoring of antibiotic therapy, and symptom control. Patient has had one dose of her COVID vaccine and her test on admission today is: Negative Allergies Allergy/AdvReac Type Severity Reaction Status Date / Time nitrofurantoin Allergy Mild tachycardia Verified 02/19/21 11:39 aspirin Allergy Unknown INCREASES Verified 02/19/21 11:39 BLEEDING duloxetine AdvReac Severe SEVERE Verified 02/19/21 11:39 VOMITING caffeine AdvReac Intermediate racing Verified 02/19/21 11:39 heart Sulfa (Sulfonamide AdvReac Intermediate Tinnitis Verified 02/19/21 11:39 Antibiotics) acetaminophen [From Tylenol] AdvReac liver bleed Verified 02/19/21 11:39 lisinopril AdvReac cough, Verified 02/19/21 11:39 white "stuff" all over lungs Home Medications Medication Instructions Recorded Confirmed Type cranberry-vitamin C-flaxseed 2 cap PO QDL #0 11/03/12 02/19/21 History capsule apixaban 5 mg tablet (Eliquis) 5 mg PO BID #60 tab 10/08/19 02/19/21 Rx metoprolol tartrate 25 mg tablet 25 mg PO BID #60 tab 10/08/19 02/19/21 Rx amlodipine 5 mg tablet 5 mg PO BID 06/24/20 02/19/21 History flaxseed oil 1,000 mg capsule 1,000 mg PO QDL #0 06/24/20 02/19/21 History garlic 500 mg PO QDL #0 06/24/20 02/19/21 History glucosamine sulf dipot 1 cap PO QDL 06/24/20 02/19/21 History chlr,msm,chond 550 mg-C 30 mg-aleena 1 mg capsule (Glucosamine Chondroitin) insulin aspart U-100 100 unit/mL 6 unit SUBCUT TID 06/24/20 02/19/21 History subcutaneous solution (Novolog U-100 Insulin aspart) lactobacillus combination no.4 3 3,000 mmu cells PO QAM 06/24/20 02/19/21 History billion cell capsule (Probiotic) magnesium oxide 400 mg (241.3 mg 400 mg PO BID 06/24/20 02/19/21 History magnesium) tablet omega 0-wlq-cpa-fish oil 1,200 mg 1 cap PO QDL 06/24/20 02/19/21 History (144 mg-216 mg) capsule (Fish Oil) atorvastatin 10 mg tablet 10 mg PO HS 11/10/20 02/19/21 History buspirone 15 mg tablet 15 mg PO TID 11/10/20 02/19/21 History ibrutinib 280 mg tablet (Imbruvica) 280 mg PO QAM 11/10/20 02/19/21 History multivitamin 1 tab PO QDL 11/10/20 02/19/21 History omeprazole 40 mg capsule,delayed 40 mg PO QAM 11/10/20 02/19/21 History release ondansetron HCl 4 mg tablet 4 mg PO Q8H PRN 11/10/20 02/19/21 History oxybutynin chloride 10 mg 10 mg PO HS 11/10/20 02/19/21 History tablet,extended release 24 hr potassium chloride 10 mEq 10 meq PO BID 11/10/20 02/19/21 History capsule,extended release calcium carbonate 600 mg calcium 600 mg PO BID tab 12/08/20 02/19/21 History (1,500 mg) tablet (Calcium) cholecalciferol (vitamin D3) 25 1,000 unit PO QDL tab 12/08/20 02/19/21 History mcg (1,000 unit) tablet (Vitamin D3) ascorbic acid (vitamin C) 500 mg 500 g PO BID 12/31/20 02/19/21 History tablet (Vitamin C) ferrous sulfate 325 mg (65 mg 325 mg PO BID 12/31/20 02/19/21 History iron) tablet (FeroSul) vitamin B complex 1 tab PO QDL 12/31/20 02/19/21 History insulin glargine 100 unit/mL (3 26 unit SUBCUT HS #15 ml 01/04/21 02/19/21 Rx mL) subcutaneous pen (Basaglar KwikPen U-100 Insulin) cefuroxime axetil 250 mg tablet 250 mg PO BID 02/19/21 02/19/21 History Past Med/Surg History Medical History Acute GI bleeding Bilateral hydronephrosis Cataract Cervical cancer Diabetes Elevated bilirubin Hypertension Recurrent UTI Transaminitis Urgency incontinence Urinary tract infection Surgical History H/O: hysterectomy S/P appendectomy S/P cataract surgery both eyes S/P cholecystectomy Social History Smoking Status: Never smoker Second Hand Exposure: No; Hx Alcohol Use: No Hx Substance Use: No Preferred Language: Tongan Communication Ability: Effective 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 How many Children do You have: 2 Feels Safe at Home: Yes Childhood Exposure to Second-Hand Smoke: No Dental Care, Regularly: No Physical Activity Frequency: Does not Exercise Seatbelt Use: always Sunscreen Use: No (hardly in sun d/t medicine ) Assistive Devices: Glasses Review of Systems 2 Review of Systems: REVIEW OF SYSTEMS: Constitutional: (+) chills, No fever, sweats Eyes: No diplopia, no worsening or blurred vision ENT: normal hearing, no trouble swallowing Respiratory: No cough, sputum, dyspnea at rest or on exertion Cardiovascular: No chest pain, tightness or palpitations Abdomen: (+) pain, nausea, No vomiting, diarrhea or constipation Musculoskeletal: No joint pain, calf pain, swelling Neurologic: No weakness, numbness/tingling, or balance problems Psychiatric: No anxiety or depression Skin: No rash or itch Physical Exam Physical Exam: PHYSICAL EXAM: General: awake, alert, no apparent distress Head: Normocephalic, atraumatic ENT: PERRL, EOMI, no pharyngeal exudate, mucous membranes moist Neuro: AAO x 3, speech clear and appropriate, strength intact bilaterally 5/5, sensation intact and equal all extremities and dermatomes, no pronator drift Chest: equal rise and fall of the chest, no accessory muscle use, no heaves or thrills, Clear to auscultation, on room air, Cardiac: Regular rate and rhythm, telemetry reviewed-NSR, skin warm dry, cap refill <3 seconds, peripheral pulses +2 no JVD, no murmur, no edema GI: NABS x 4 quadrants, soft, nontender to palpation, no rebound, guarding or tenderness : Spontaneously voiding, increase in frequency, hematuria, dysuria and flank pain, no CVA tenderness, Extremities: Normal inspection, no peripheral edema or erythema, calfs nontender to palpation Psych: Normal mood and affect Skin: no rash or erythema Results & Data Results & Data ([facility]) Vital Signs (Past 12 Hours) Vital Signs Temp Pulse Pulse Resp BP BP Pulse Ox 02/19/21 13:01 80 20 153/68 H 95 02/19/21 11:22 74 24 145/72 H 96 02/19/21 10:00 36.9 C 74 20 144/67 H 96 Laboratory Results Abnormal Labs 02/19/21 02/19/21 02/19/21 11:22 11:30 11:30 WBC 14.98 H RDW Std Deviation 47.6 H MPV 12.8 H Neut # (Auto) 12.41 H [place] # (Auto) 1.07 H Immature Gran # (Auto) 0.04 H BUN 23 H BUN/Creatinine Ratio 21.1 H Glucose 200 H Total Bilirubin 2.2 H AST 14 L Urine Appearance Cloudy A Urine Protein 3+ H Urine Blood 3+ H Urine Bilirubin 1+ H Ur Leukocyte Esterase 1+ H Urine RBC >30 H Urine WBC >30 H Ur Epithelial Cells >30 H Urine Bacteria 1+ H Diagnostic Findings Abdomen/Pelvis CT 02/19/21 11:07 CT SCAN OF THE ABDOMEN AND PELVIS WITHOUT IV CONTRAST CLINICAL HISTORY: Urinary tract infection. Right flank pain. COMPARISON STUDY: Abdominal CT dated 06/24/2020. TECHNIQUE: CT scan of the abdomen and pelvis is performed from the lung bases to the proximal femora. Images are reviewed in the axial, sagittal, and coronal planes. IV contrast was not administered for this examination. Note that the examination was performed in suboptimal fashion without oral and IV contrast. A dose lowering technique was utilized adhering to the principles of ALARA. CT DOSE: 884.18 mGy.cm FINDINGS: Lung bases: The heart is normal in size and without pericardial effusion. There are coronary artery calcifications. The lung bases are clear noting bibasilar scarring/atelectasis. There is a small hiatal hernia. Liver: The unenhanced liver is normal in size, contour, and attenuation. There is no intrahepatic biliary ductal dilatation. Gallbladder: Surgically absent noting clips in the gallbladder fossa. Spleen: Normal in size and attenuation. Pancreas: The unenhanced pancreas is mildly atrophic. Parenchymal calcifications suggesting chronic pancreatitis. Pancreatic cystic lesions are again noted and measure up to 12 mm. These remain typical for sidebranch IPMNs. Adrenal glands: Unremarkable. Kidneys: The unenhanced kidneys demonstrate cortical atrophy. There is severe bilateral hydroureteronephrosis. Both ureters are dilated to the level of the bladder. No obstructing calculus is clearly identified. There is urothelial thickening seen within the renal pelvis bilaterally and throughout both ureters with surrounding inflammation. There are no renal calculi identified. A 1.6 cm complex/hyperdense cyst is noted in the left upper pole. Abdominal vasculature: The abdominal aorta is normal in course and caliber noting advanced atherosclerotic calcification. Bowel: There is mild colonic diverticulosis without CT evidence of acute diverticulitis. Fecal retention is seen throughout the colon. There is no bowel obstruction. The appendix is not identified and reported surgically absent. Peritoneum: There is no intraperitoneal free air or abdominal ascites. Foci of induration within the ventral abdominal wall are likely related to subcutaneous injections. Lymphadenopathy: There are numerous mildly enlarged retroperitoneal lymph nodes which measure up to 11 mm in short axis. Pelvic viscera: The bladder is decompressed. The bladder wall appears thickened and irregular and there is pericystic inflammation. The uterus is surgically absent. No adnexal lesion is seen. There are small bilateral fat-containing inguinal hernias. Postoperative change is noted in the ventral wall of the pelvis. Skeletal structures: The skeletal structures are osteopenic. There is moderate to advanced lumbosacral spondylosis. Large posterior disc osteophyte complexes are seen at all lumbar levels. No lytic or blastic lesions are seen. IMPRESSION: 1. There is severe bilateral hydroureteronephrosis, not significantly changed as compared to 06/24/2020. The etiology remains unclear and is likely bladder related. No obstructing stone or lesion is identified. 2. The bladder is decompressed, and appears heterogeneously thick walled with surrounding inflammation. There is also significant urothelial thickening involving the ureters and renal pelvises with surrounding inflammation. Findings are typical for cystitis with bilateral ascending urinary tract infection. Correlate with clinical findings and urinalysis. 3. Mildly enlarged retroperitoneal lymph nodes are likely reactive. 4. Additional findings as above ACT 112: Negative or not required by law. Electronically signed by: Reilly Mackey M.D. 02/19/2021 12:16 PM Medications Administered Home Medications cranberry-vitamin C-flaxseed capsule 2 cap PO QDL #0 11/03/12 [History Confirmed 02/19/21] apixaban 5 mg tablet (Eliquis) 5 mg PO BID #60 tab 10/08/19 [Rx Confirmed 02/19/21] metoprolol tartrate 25 mg tablet 25 mg PO BID #60 tab 10/08/19 [Rx Confirmed 02/19/21] amlodipine 5 mg tablet 5 mg PO BID 06/24/20 [History Confirmed 02/19/21] flaxseed oil 1,000 mg capsule 1,000 mg PO QDL #0 06/24/20 [History Confirmed 02/19/21] garlic 500 mg PO QDL #0 06/24/20 [History Confirmed 02/19/21] glucosamine sulf dipot chlr,msm,chond 550 mg-C 30 mg-aleena 1 mg capsule (Glucosamine Chondroitin) 1 cap PO QDL 06/24/20 [History Confirmed 02/19/21] insulin aspart U-100 100 unit/mL subcutaneous solution (Novolog U-100 Insulin aspart) 6 unit SUBCUT TID 06/24/20 [History Confirmed 02/19/21] lactobacillus combination no.4 3 billion cell capsule (Probiotic) 3,000 mmu cells PO QAM 06/24/20 [History Confirmed 02/19/21] magnesium oxide 400 mg (241.3 mg magnesium) tablet 400 mg PO BID 06/24/20 [History Confirmed 02/19/21] omega 6-gpj-mcj-fish oil 1,200 mg (144 mg-216 mg) capsule (Fish Oil) 1 cap PO QDL 06/24/20 [History Confirmed 02/19/21] atorvastatin 10 mg tablet 10 mg PO HS 11/10/20 [History Confirmed 02/19/21] buspirone 15 mg tablet 15 mg PO TID 11/10/20 [History Confirmed 02/19/21] ibrutinib 280 mg tablet (Imbruvica) 280 mg PO QAM 11/10/20 [History Confirmed 02/19/21] multivitamin 1 tab PO QDL 11/10/20 [History Confirmed 02/19/21] omeprazole 40 mg capsule,delayed release 40 mg PO QAM 11/10/20 [History Confirmed 02/19/21] ondansetron HCl 4 mg tablet 4 mg PO Q8H PRN 11/10/20 [History Confirmed 02/19/21] oxybutynin chloride 10 mg tablet,extended release 24 hr 10 mg PO HS 11/10/20 [History Confirmed 02/19/21] potassium chloride 10 mEq capsule,extended release 10 meq PO BID 11/10/20 [History Confirmed 02/19/21] calcium carbonate 600 mg calcium (1,500 mg) tablet (Calcium) 600 mg PO BID tab 12/08/20 [History Confirmed 02/19/21] cholecalciferol (vitamin D3) 25 mcg (1,000 unit) tablet (Vitamin D3) 1,000 unit PO QDL tab 12/08/20 [History Confirmed 02/19/21] ascorbic acid (vitamin C) 500 mg tablet (Vitamin C) 500 g PO BID 12/31/20 [History Confirmed 02/19/21] ferrous sulfate 325 mg (65 mg iron) tablet (FeroSul) 325 mg PO BID 12/31/20 [History Confirmed 02/19/21] vitamin B complex 1 tab PO QDL 12/31/20 [History Confirmed 02/19/21] insulin glargine 100 unit/mL (3 mL) subcutaneous pen (Basaglar KwikPen U-100 Insulin) 26 unit SUBCUT HS #15 ml 01/04/21 [Rx Confirmed 02/19/21] cefuroxime axetil 250 mg tablet 250 mg PO BID 02/19/21 [History Confirmed 02/19/21] Active Medications Vancomycin HCl 2,250 mg/ (Sodium Chloride) 545 mls @ 200 mls/hr IV NOW ONE Stop: 02/19/21 15:12 Last Admin: 02/19/21 12:58 Dose: 200 mls/hr Documented by: Ceftriaxone Sodium 1,000 mg/ (Dextrose) 50 mls @ 100 mls/hr IV Q24H NEIL; Protocol Stop: 03/01/21 13:29 Ceftriaxone Sodium (Rocephin) 1,000 mg in 50 mls @ 100 mls/hr IV NOW STA; Protocol Stop: 02/19/21 13:54 Miscellaneous Information (Vancomycin Consult Active) 1 ea N/A UD PRN PRN Reason: Consult Stop: 03/21/21 12:28 ECG Additional Comments: Pending on admission Code Status & VTE Plan Code Status CODE: FULL VTE: SCD's, Eliquis Supervising Physician Co-Signing Physician Notes I supervised CHIARA Suero on this admission. I interviewed and examined the patient independently of him. The plan is as written in his note except for any following changes/exceptions: None 80yo F w/ hx of cervical cancer who presents with dysuria and possible UTI. I do wonder if this is truly recurrent UTI or waxing and waning symptoms from her cervical cancer treatment. Consider ID +/- urology consult given atypical urine culture results. PG Care Time/CCT Total # of Minutes Spent Total Time Spent with Patient: Total time spent is greater than 50% in coordination of care (as documented) at patient's floor/unit and/or counseling patient: Coding Level of Care Code 02069 Initial Inpt Care Lvl 3 Diagnoses UTI (urinary tract infection) N39.0 Dysuria R30.0 History of cervical cancer Z85.41 Hypertension I10 Diabetes E11.9 Bilateral hydronephrosis N13.30 Chronic pancreatitis K86.1 Paroxysmal A-fib I48.0
[2021-02-19] MEDS ORDERED: cefTRIAXone SODIUM 2,000 MG/70 ML BAG IV STA (16:04)
[2021-02-19] MEDS ORDERED: GLUCOSE 40% GEL 15 GM TUBE PO PRN (16:38)
[2021-02-19] MEDS ORDERED: DEXTROSE 50% 50 ML SYRINGE IV PRN (16:38)
[2021-02-19] MEDS ORDERED: GLUCOSE 10 TABS/TUBE PO PRN (16:38)
[2021-02-19] MEDS ORDERED: GLUCAGON FOR INJ 1 MG VIAL SQ PRN (16:38)
[2021-02-19] MEDS ORDERED: CARBOHYDRATES FOR HYPOGLYCEMIA PO PRN (16:38)
[2021-02-19] MEDS ORDERED: ONDANSETRON 4 MG OD TAB PO PRN (16:49)
[2021-02-19] MEDS ORDERED: cefTRIAXone SODIUM 2,000 MG in DEXTROSE 5% 50 ML IV SCH (17:00)
[2021-02-19] MEDS ORDERED: Nursing to Pharmacy Communication SCH (17:30)
[2021-02-19] MEDS: busPIRone 15 MG TAB PO SCH ×2 (17:39→21:13)
[2021-02-19] MEDS: LACTATED RINGER'S 1,000 ML IV SCH (18:31)
[2021-02-19] MEDS: INSULIN ASPART 100 UNITS/ML 3 ML PEN SC SCH ×2 (18:33→21:16)
[2021-02-19] MEDS: APIXABAN 5 MG TABLET PO SCH (21:12)
[2021-02-19] MEDS: amLODIPine BESYLATE 5 MG TAB PO SCH (21:12)
[2021-02-19] MEDS: ASCORBIC ACID 500 MG TAB PO SCH (21:13)
[2021-02-19] MEDS: ATORVASTATIN 10 MG TAB PO SCH (21:13)
[2021-02-19] MEDS: INSULIN GLARGINE SOLOSTAR 100 UNITS/ML 3 ML PEN SQ SCH (21:17)
[2021-02-19] MEDS: METOPROLOL TARTRATE 25 MG TAB PO SCH (21:40)
[2021-02-19] MEDS: POTASSIUM CHLORIDE 10 MEQ TABCR PO SCH (21:40)
[2021-02-19] MEDS: OXYBUTYNIN CHLORIDE XL 5 MG TABCR PO SCH (21:40)
[2021-02-20] MEDS: LACTATED RINGER'S 1,000 ML IV SCH ×2 (05:59→18:31)
[2021-02-20 08:05] LABS: Hematocrit (blood only) 35.3 % (37-47); Hemoglobin 11.8 g/dL (12.0-16.0); Mean Corpuscular Hemoglobin 30.8 pg (25-34); Mean Corpuscular Hgb Conc 33.4 g/dL (32-36); Mean Corpuscular Volume 92.2 fL (80-100); Mean Platelet Volume 12.9 fL (7.4-10.4); Platelet Count 108 K/uL (130-400); RDW Coefficient of Variation 14.4 % (11.5-14.5); Red Blood Count 3.83 M/uL (4.2-5.4); White Blood Count 8.77 K/uL (4.8-10.8)
[2021-02-20 08:06] LABS: Giant Platelets 1+; Immature Granulocytes # (auto) 0.02 K/uL (0.00-0.02); Immature Granulocytes % (auto) 0.2 %; Lymphocytes # (auto) 1.71 K/uL (1.2-3.4); Lymphocytes % (auto) 19.5 %; Monocytes # (auto) 0.88 K/uL (0.11-0.59); Neutrophils # (auto) 6.16 K/uL (1.4-6.5); Neutrophils % (auto) 70.3 %; Platelet Estimate Decreased (Normal)
[2021-02-20 08:14] LABS: BUN Creatinine Ratio 20.9 (10-20); Calcium 8.4 mg/dl (8.5-10.1); Creatinine Clr Calc Pharmacy 51.1 ml/min; Est GFR (African American) 58.9 ml/min; Est GFR (Non-African American) 50.8 ml/min; Potassium 3.7 mmol/L (3.5-5.1)
[2021-02-20 08:16] LABS: Magnesium 1.8 mg/dl (1.8-2.4)
--- NOTE | 2021-02-20 08:28 | Hospitalist Progress Note ---
Date of Service February 20, 2021 Assessment & Plan (1) UTI (urinary tract infection): Plan: Patient with chronic urinary symptoms and un-resolving urine cultures despite multiple courses of abx, most recently completed cefuroxime x 7 days on the . (previously seen 01/27 [facility] and given macrobid x 10 days despite listed on med list for tachycardia and did report fast HR and deep breathing needed to calm down while on). Had been feeling dizzy, lightheaded and difficulty with walking during PCP vist 02/09/21 CTAP severe bilateral hydroureteronephrosis, not significantly changed as compared to 06/24/2020. The etiology remains unclear and is likely bladder related. No obstructing stone or lesion is identified. decompressed bladder with surrounding inflammation c/w cystitis and b/l ascending UTI. ALso noted mildly enlarged retroperitoneal lymph noteds, likely reactive. ?given hx cervical xa Vanco/Rocephin on admission, continued on Rocephin Continue LR @ 80cc/hr for dehydration Given hx ESBL Proteus UTI May 2020 with hematuria, and hematuria at present with retention, discussed with pharmacy and switched to Ertapenem for abx coverage UA with 3+ protein, 3+ blood, 1+ bilirubin, 1+ leuk est, >30 RBC, >30 WBC, >30 epi, 1+ bacteria. 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 ? follow up Giselle Hines with Dr. Feliciano Dove at d/c "stents unlikely to offer any benefit " given lack of renal failure and afebrile status. ?consideration for xiong Did have low grade temp last night 37.9C Voiding but not measured Urine cytology WBC now wnl ID consulted given recurrent infections, multiple agents Diarrhea chronic, felt 2nd to radiation however, given multiple abx for UTI, will check cdiff as reports 7-8x/daily liquid stool (2) CLL (chronic lymphocytic leukemia): Plan: Continue Ibrutinib 280 mg daily -- she did not bring this in but did discuss if someone able to bring in and drop off that we would be able to continue -- attempt to have someone bring for tomorrow Follows with provider in [place], will request records ?? retroperitoneal lymph nodes reactive vs metastatic disease -- req old records from [place] will discuss with provider in house tomorrow for review (3) Dysuria: Plan: As above decreasing with treatment as above (4) History of cervical cancer: Plan: As above - urine cytology (5) Hypertension: Plan: BP stable 134/72 Continue amlodipine and metoprolol (6) Diabetes: Plan: Continue basal bolus insulin - Continue Tresiba- equivalent to pharmacy - Aspart sliding scale CF 20 with ratio 1:15 - Goal <180 (7) Bilateral hydronephrosis: Plan: Chronic from May 2020 Per Urology, no role for stents at this time (8) Chronic pancreatitis: Plan: Stable- continue with LR at maintenance - Lipase wnl 374 (9) Paroxysmal A-fib: Plan: Currently in NSR - Continue Metoprolol - Continue Eliquis for now but may need to hold if persistent hematuria Plan: continued tx UTI as above, await urine c/s ID consultation pending Admission and Anticipated Discharge Date Admission Date: February 19, 2021 Subjective Patient evaluated this morning. Feeling much better. No further abdominal pain. Blood tinged/darkened urine, started yesterday morning. Denies any history of stones and notes she had a cystoscopy by urology in the past without evidence for stones. Will obtain renal US She has low back pain chronically, but no CVA tenderness, however she states that the discomfort had recently been wrapping around bilaterally to groin. She noted similar hematuria in the past with UTIs. Most recent UTIs and recently completed 7 days cefuroxime and was feeling better until she completed this. Chronic diarrhea from radiation, however will check for cdiff given repeated abx -- she endorses <10x/day but have always been liquid, approx 7-8x/daily. Questions/concerns addressed at this time. Review of Systems Review of Systems: All systems reviewed & are unremarkable except as noted in HPI & below Physical Exam Physical Exam: PHYSICAL EXAM: General: awake, alert, no apparent distress Head: Normocephalic, atraumatic ENT: PERRL, EOMI, no pharyngeal exudate, mucous membranes moist Neuro: AAO x 3, speech clear and appropriate, strength intact bilaterally 5/5, sensation intact and equal all extremities and dermatomes, no pronator drift Chest: equal rise and fall of the chest, no accessory muscle use, no heaves or thrills, Clear to auscultation, on room air, Cardiac: RRR, skin warm dry, cap refill <3 seconds, peripheral pulses +2 no JVD, no murmur, no edema GI: NABS x 4 quadrants, soft, nontender to palpation, no rebound, guarding or tenderness : Spontaneously voiding, increase in frequency, hematuria, dysuria and flank pain, no CVA tenderness Extremities: Normal inspection, no peripheral edema or erythema, calfs nontender to palpation Psych: Normal mood and affect Skin: no rash or erythema Results & Data Results & Data ([facility]) Vital Signs (Past 12 Hours) Vital Signs Temp Pulse Resp BP Pulse Ox 02/20/21 07:52 37.0 C 83 16 128/69 93 02/19/21 23:22 37.9 C H 76 16 117/78 94 02/19/21 21:11 79 130/68 Laboratory Results 02/20/21 02/20/21 02/20/21 Range/Units 08:03 06:53 06:53 WBC 8.77 (4.8-10.8) K/uL RBC 3.83 L (4.2-5.4) M/uL Hgb 11.8 L (12.0-16.0) g/dL Hct 35.3 L (37-47) % MCV 92.2 (80-100) fL MCH 30.8 (25-34) pg MCHC 33.4 (32-36) g/dL RDW Std Deviation 48.0 H (36.4-46.3) fL RDW Coeff of Matthew 14.4 (11.5-14.5) % Plt Count 108 L (130-400) K/uL MPV 12.9 H (7.4-10.4) fL Immature Gran % (Auto) 0.2 % Neut % (Auto) 70.3 % Lymph % (Auto) 19.5 % [place] % (Auto) 10.0 % Eos % (Auto) 0.0 % Baso % (Auto) 0.0 % Neut # (Auto) 6.16 (1.4-6.5) K/uL Lymph # (Auto) 1.71 (1.2-3.4) K/uL [place] # (Auto) 0.88 H (0.11-0.59) K/uL Eos # (Auto) 0.00 (0-0.5) K/uL Baso # (Auto) 0.00 (0-0.2) K/uL Immature Gran # (Auto) 0.02 (0.00-0.02) K/uL Platelet Estimate Decreased L (Normal) Giant Platelets 1+ Sodium 140 (136-145) mmol/L Potassium 3.7 (3.5-5.1) mmol/L Chloride 108 H (98-107) mmol/L Carbon Dioxide 23 (21-32) mmol/L Anion Gap 9.0 (3-11) BUN 22 H (7-18) mg/dl Creatinine 1.05 (0.6-1.2) mg/dl Est Cr Clr Drug Dosing 51.1 ml/min Est GFR ( Amer) 58.9 ml/min Est GFR (Non-Af Amer) 50.8 ml/min BUN/Creatinine Ratio 20.9 H (10-20) Glucose 145 H (70-99) mg/dl POC Glucose 147 H (70-99) mg/dl Calcium 8.4 L (8.5-10.1) mg/dl Magnesium 1.8 (1.8-2.4) mg/dl Total Bilirubin (0.2-1) mg/dl AST (15-37) U/L ALT (12-78) U/L Alkaline Phosphatase (45-117) U/L Total Protein (6.4-8.2) gm/dl Albumin (3.4-5.0) gm/dl Globulin (2.5-4.0) gm/dl Albumin/Globulin Ratio (0.9-2) Lipase (73-393) U/L Urine Color Urine Appearance (Clear) Urine pH (4.5-7.5) Ur Specific [place] (1.000-1.030) Urine Protein (Negative) Urine Glucose (UA) (Negative) Urine Ketones (Negative) Urine Blood (Negative) Urine Nitrite (Negative) Urine Bilirubin (Negative) Urine Urobilinogen (Negative) Ur Leukocyte Esterase (Negative) Urine RBC (0-4) /hpf Urine WBC (0-5) /hpf Ur Epithelial Cells (0-5) /lpf Urine Bacteria (Negative) COVID-19 Eval Order SARS-CoV-2 (PCR) (Negative) 02/19/21 02/19/21 02/19/21 Range/Units 21:07 17:32 12:42 WBC (4.8-10.8) K/uL RBC (4.2-5.4) M/uL Hgb (12.0-16.0) g/dL Hct (37-47) % MCV (80-100) fL MCH (25-34) pg MCHC (32-36) g/dL RDW Std Deviation (36.4-46.3) fL RDW Coeff of Matthew (11.5-14.5) % Plt Count (130-400) K/uL MPV (7.4-10.4) fL Immature Gran % (Auto) % Neut % (Auto) % Lymph % (Auto) % [place] % (Auto) % Eos % (Auto) % Baso % (Auto) % Neut # (Auto) (1.4-6.5) K/uL Lymph # (Auto) (1.2-3.4) K/uL [place] # (Auto) (0.11-0.59) K/uL Eos # (Auto) (0-0.5) K/uL Baso # (Auto) (0-0.2) K/uL Immature Gran # (Auto) (0.00-0.02) K/uL Platelet Estimate (Normal) Giant Platelets Sodium (136-145) mmol/L Potassium (3.5-5.1) mmol/L Chloride (98-107) mmol/L Carbon Dioxide (21-32) mmol/L Anion Gap (3-11) BUN (7-18) mg/dl Creatinine (0.6-1.2) mg/dl Est Cr Clr Drug Dosing ml/min Est GFR ( Amer) ml/min Est GFR (Non-Af Amer) ml/min BUN/Creatinine Ratio (10-20) Glucose (70-99) mg/dl POC Glucose 214 H 195 H (70-99) mg/dl Calcium (8.5-10.1) mg/dl Magnesium (1.8-2.4) mg/dl Total Bilirubin (0.2-1) mg/dl AST (15-37) U/L ALT (12-78) U/L Alkaline Phosphatase (45-117) U/L Total Protein (6.4-8.2) gm/dl Albumin (3.4-5.0) gm/dl Globulin (2.5-4.0) gm/dl Albumin/Globulin Ratio (0.9-2) Lipase (73-393) U/L Urine Color Urine Appearance (Clear) Urine pH (4.5-7.5) Ur Specific [place] (1.000-1.030) Urine Protein (Negative) Urine Glucose (UA) (Negative) Urine Ketones (Negative) Urine Blood (Negative) Urine Nitrite (Negative) Urine Bilirubin (Negative) Urine Urobilinogen (Negative) Ur Leukocyte Esterase (Negative) Urine RBC (0-4) /hpf Urine WBC (0-5) /hpf Ur Epithelial Cells (0-5) /lpf Urine Bacteria (Negative) COVID-19 Eval Order SARS-CoV-2 (PCR) NEGATIVE (Negative) 02/19/21 02/19/21 02/19/21 Range/Units 12:42 11:30 11:30 WBC 14.98 H (4.8-10.8) K/uL RBC 4.41 (4.2-5.4) M/uL Hgb 13.8 (12.0-16.0) g/dL Hct 40.5 (37-47) % MCV 91.8 (80-100) fL MCH 31.3 (25-34) pg MCHC 34.1 (32-36) g/dL RDW Std Deviation 47.6 H (36.4-46.3) fL RDW Coeff of Matthew 14.1 (11.5-14.5) % Plt Count 136 (130-400) K/uL MPV 12.8 H (7.4-10.4) fL Immature Gran % (Auto) 0.3 % Neut % (Auto) 82.8 % Lymph % (Auto) 9.6 % [place] % (Auto) 7.1 % Eos % (Auto) 0.1 % Baso % (Auto) 0.1 % Neut # (Auto) 12.41 H (1.4-6.5) K/uL Lymph # (Auto) 1.44 (1.2-3.4) K/uL [place] # (Auto) 1.07 H (0.11-0.59) K/uL Eos # (Auto) 0.01 (0-0.5) K/uL Baso # (Auto) 0.01 (0-0.2) K/uL Immature Gran # (Auto) 0.04 H (0.00-0.02) K/uL Platelet Estimate (Normal) Giant Platelets Sodium 136 (136-145) mmol/L Potassium 4.0 (3.5-5.1) mmol/L Chloride 105 (98-107) mmol/L Carbon Dioxide 24 (21-32) mmol/L Anion Gap 7.0 (3-11) BUN 23 H (7-18) mg/dl Creatinine 1.09 (0.6-1.2) mg/dl Est Cr Clr Drug Dosing 48.6 ml/min Est GFR ( Amer) 56.3 ml/min Est GFR (Non-Af Amer) 48.6 ml/min BUN/Creatinine Ratio 21.1 H (10-20) Glucose 200 H (70-99) mg/dl POC Glucose (70-99) mg/dl Calcium 9.0 (8.5-10.1) mg/dl Magnesium (1.8-2.4) mg/dl Total Bilirubin 2.2 H (0.2-1) mg/dl AST 14 L (15-37) U/L ALT 25 (12-78) U/L Alkaline Phosphatase 84 (45-117) U/L Total Protein 6.7 (6.4-8.2) gm/dl Albumin 3.4 (3.4-5.0) gm/dl Globulin 3.3 (2.5-4.0) gm/dl Albumin/Globulin Ratio 1.0 (0.9-2) Lipase 374 (73-393) U/L Urine Color Urine Appearance (Clear) Urine pH (4.5-7.5) Ur Specific [place] (1.000-1.030) Urine Protein (Negative) Urine Glucose (UA) (Negative) Urine Ketones (Negative) Urine Blood (Negative) Urine Nitrite (Negative) Urine Bilirubin (Negative) Urine Urobilinogen (Negative) Ur Leukocyte Esterase (Negative) Urine RBC (0-4) /hpf Urine WBC (0-5) /hpf Ur Epithelial Cells (0-5) /lpf Urine Bacteria (Negative) COVID-19 Eval Order Covid19 at [facility] SARS-CoV-2 (PCR) (Negative) 02/19/21 Range/Units 11:22 WBC (4.8-10.8) K/uL RBC (4.2-5.4) M/uL Hgb (12.0-16.0) g/dL Hct (37-47) % MCV (80-100) fL MCH (25-34) pg MCHC (32-36) g/dL RDW Std Deviation (36.4-46.3) fL RDW Coeff of Matthew (11.5-14.5) % Plt Count (130-400) K/uL MPV (7.4-10.4) fL Immature Gran % (Auto) % Neut % (Auto) % Lymph % (Auto) % [place] % (Auto) % Eos % (Auto) % Baso % (Auto) % Neut # (Auto) (1.4-6.5) K/uL Lymph # (Auto) (1.2-3.4) K/uL [place] # (Auto) (0.11-0.59) K/uL Eos # (Auto) (0-0.5) K/uL Baso # (Auto) (0-0.2) K/uL Immature Gran # (Auto) (0.00-0.02) K/uL Platelet Estimate (Normal) Giant Platelets Sodium (136-145) mmol/L Potassium (3.5-5.1) mmol/L Chloride (98-107) mmol/L Carbon Dioxide (21-32) mmol/L Anion Gap (3-11) BUN (7-18) mg/dl Creatinine (0.6-1.2) mg/dl Est Cr Clr Drug Dosing ml/min Est GFR ( Amer) ml/min Est GFR (Non-Af Amer) ml/min BUN/Creatinine Ratio (10-20) Glucose (70-99) mg/dl POC Glucose (70-99) mg/dl Calcium (8.5-10.1) mg/dl Magnesium (1.8-2.4) mg/dl Total Bilirubin (0.2-1) mg/dl AST (15-37) U/L ALT (12-78) U/L Alkaline Phosphatase (45-117) U/L Total Protein (6.4-8.2) gm/dl Albumin (3.4-5.0) gm/dl Globulin (2.5-4.0) gm/dl Albumin/Globulin Ratio (0.9-2) Lipase (73-393) U/L Urine Color Red Urine Appearance Cloudy A (Clear) Urine pH 6.5 (4.5-7.5) Ur Specific [place] 1.025 (1.000-1.030) Urine Protein 3+ H (Negative) Urine Glucose (UA) Negative (Negative) Urine Ketones Negative (Negative) Urine Blood 3+ H (Negative) Urine Nitrite Negative (Negative) Urine Bilirubin 1+ H (Negative) Urine Urobilinogen Negative (Negative) Ur Leukocyte Esterase 1+ H (Negative) Urine RBC >30 H (0-4) /hpf Urine WBC >30 H (0-5) /hpf Ur Epithelial Cells >30 H (0-5) /lpf Urine Bacteria 1+ H (Negative) COVID-19 Eval Order SARS-CoV-2 (PCR) (Negative) Diagnostic Findings Abdomen/Pelvis CT 02/19/21 11:07 CT SCAN OF THE ABDOMEN AND PELVIS WITHOUT IV CONTRAST CLINICAL HISTORY: Urinary tract infection. Right flank pain. COMPARISON STUDY: Abdominal CT dated 06/24/2020. TECHNIQUE: CT scan of the abdomen and pelvis is performed from the lung bases to the proximal femora. Images are reviewed in the axial, sagittal, and coronal planes. IV contrast was not administered for this examination. Note that the examination was performed in suboptimal fashion without oral and IV contrast. A dose lowering technique was utilized adhering to the principles of ALARA. CT DOSE: 884.18 mGy.cm FINDINGS: Lung bases: The heart is normal in size and without pericardial effusion. There are coronary artery calcifications. The lung bases are clear noting bibasilar scarring/atelectasis. There is a small hiatal hernia. Liver: The unenhanced liver is normal in size, contour, and attenuation. There is no intrahepatic biliary ductal dilatation. Gallbladder: Surgically absent noting clips in the gallbladder fossa. Spleen: Normal in size and attenuation. Pancreas: The unenhanced pancreas is mildly atrophic. Parenchymal calcifications suggesting chronic pancreatitis. Pancreatic cystic lesions are again noted and measure up to 12 mm. These remain typical for sidebranch IPMNs. Adrenal glands: Unremarkable. Kidneys: The unenhanced kidneys demonstrate cortical atrophy. There is severe bilateral hydroureteronephrosis. Both ureters are dilated to the level of the bladder. No obstructing calculus is clearly identified. There is urothelial thickening seen within the renal pelvis bilaterally and throughout both ureters with surrounding inflammation. There are no renal calculi identified. A 1.6 cm complex/hyperdense cyst is noted in the left upper pole. Abdominal vasculature: The abdominal aorta is normal in course and caliber noting advanced atherosclerotic calcification. Bowel: There is mild colonic diverticulosis without CT evidence of acute diverticulitis. Fecal retention is seen throughout the colon. There is no bowel obstruction. The appendix is not identified and reported surgically absent. Peritoneum: There is no intraperitoneal free air or abdominal ascites. Foci of induration within the ventral abdominal wall are likely related to subcutaneous injections. Lymphadenopathy: There are numerous mildly enlarged retroperitoneal lymph nodes which measure up to 11 mm in short axis. Pelvic viscera: The bladder is decompressed. The bladder wall appears thickened and irregular and there is pericystic inflammation. The uterus is surgically absent. No adnexal lesion is seen. There are small bilateral fat-containing inguinal hernias. Postoperative change is noted in the ventral wall of the pelvis. Skeletal structures: The skeletal structures are osteopenic. There is moderate to advanced lumbosacral spondylosis. Large posterior disc osteophyte complexes are seen at all lumbar levels. No lytic or blastic lesions are seen. IMPRESSION: 1. There is severe bilateral hydroureteronephrosis, not significantly changed as compared to 06/24/2020. The etiology remains unclear and is likely bladder related. No obstructing stone or lesion is identified. 2. The bladder is decompressed, and appears heterogeneously thick walled with surrounding inflammation. There is also significant urothelial thickening involving the ureters and renal pelvises with surrounding inflammation. Findings are typical for cystitis with bilateral ascending urinary tract infection. Correlate with clinical findings and urinalysis. 3. Mildly enlarged retroperitoneal lymph nodes are likely reactive. 4. Additional findings as above ACT 112: Negative or not required by law. Electronically signed by: Reilly Mackey M.D. 02/19/2021 12:16 PM Renal Ultrasound 02/20/21 11:29 RENAL ULTRASOUND HISTORY: b/l hydro, recurrent uti, COMPARISON: Abdomen and pelvis CT 02/19/2021. FINDINGS: Right kidney: 13.8 cm. Severe hydronephrosis, unchanged. Normal corticomedullary differentiation and cortical thickness. Left kidney: 12.8 cm. Severe hydronephrosis, unchanged. Normal corticomedullary differentiation and cortical thickness. Bladder: Decompressed and not visualized. IMPRESSION: Severe bilateral hydronephrosis, unchanged. ACT 112: Negative or not required by law. Electronically signed by: Kg Weiss M.D. 02/20/2021 3:47 PM PG Care Time/CCT Total # of Minutes Spent Total Time Spent with Patient: Total time spent is greater than 50% in coordination of care (as documented) at patient's floor/unit and/or counseling patient: Coding Level of Care Code 86746 Subseq Hosp Care Lvl 3 Diagnoses UTI (urinary tract infection) N39.0 Dysuria R30.0 History of cervical cancer Z85.41 Hypertension I10 Diabetes E11.9 Bilateral hydronephrosis N13.30 Chronic pancreatitis K86.1 Paroxysmal A-fib I48.0 CLL (chronic lymphocytic leukemia) C91.90
[2021-02-20] MEDS: INSULIN ASPART 100 UNITS/ML 3 ML PEN SC SCH ×4 (09:26→20:45)
[2021-02-20] MEDS: METOPROLOL TARTRATE 25 MG TAB PO SCH ×2 (09:29→20:32)
[2021-02-20] MEDS: POTASSIUM CHLORIDE 10 MEQ TABCR PO SCH ×2 (09:29→20:31)
[2021-02-20] MEDS: busPIRone 15 MG TAB PO SCH ×3 (09:30→20:29)
[2021-02-20] MEDS: ASCORBIC ACID 500 MG TAB PO SCH ×2 (09:30→20:30)
[2021-02-20] MEDS: PANTOprazole 40 MG TAB PO SCH (09:30)
[2021-02-20] MEDS: amLODIPine BESYLATE 5 MG TAB PO SCH ×2 (09:30→20:30)
[2021-02-20] MEDS: APIXABAN 5 MG TABLET PO SCH ×2 (09:34→20:31)
[2021-02-20] MEDS: ERTAPENEM SODIUM 1,000 MG in SODIUM CHLORIDE 0.9% 50 ML IV SCH (10:23)
--- NOTE | 2021-02-20 10:48 | Urology Consultation ---
Date of Consultation February 20, 2021 Assessment & Plan (1) Complicated UTI (urinary tract infection): (2) Bilateral hydronephrosis: 80 yo F with multiple comorbidities including chronic bilateral hydronephrosis admitted with complicated UTI. - Plan of care reviewed with Dr. Prakash, urologist sales promotion representative - Afebrile, lab work reviewed - creatinine 1.05, WBC 8.77 - Urine culture prelim gram negative bacilli - on IV Ertapenem, follow cultures - CTAP reviewed and notes severe b/l hydroureteronephrosis, not significantly changed as compared to imaging on 06/24/2020. No obstructing stone or lesion. Small, thick walled bladder with surrounding inflammation; also significant urothelial thickening involving the ureters and renal pelvises with surrounding inflammation. - Pt w/ small capacity, contracted bladder secondary to hx of pelvic radiation, with notable b/l hydro but a normal creatinine --> implies no obstruction, but reflux is certainly possible because of the small capacity/low compliance bladder - Given the lack of renal failure and afebrile status, stents are unlikely to offer any benefit - No acute surgical intervention warranted at this time - Consider placement of Spears catheter for maximum drainage - but anticipate that her bladder will not tolerate this well - It seems that the best longterm treatment would be consideration of permanent urinary diversion (would require referral to a reconstructive specialist at a tertiary center (and this is not an acute need)) - Continue supportive care, antibiotics, and management per primary service - Patient will follow-up outpatient with our service Thank you for allowing us to participate in the acute care of Ms. Payne. Please reconsult us with additional questions, concerns or changes in patient status. History of Present Illness Reason for Consultation: Recurrent UTI, bilateral hydronephrosis Requesting Physician: Dr. Stevenson Attending Physician: Tien Stevenson MD History of Present Illness 80 year old female with PMHx of paroxysmal atrial fibrillation on anticoagulation, diabetes, hypertension, CLL, hx of cervical cancer with radiation to pelvis, incontinence, bilateral hydronephrosis and recurrent UTI admitted for complicated urinary tract infection. Patient presented to [facility] ED on 02/19/21 with complaint of right flank and back pain. Afebrile on arrival. Lab work showed creatinine 1.09, WBC 14.98, Hgb 13.8. Urinalysis showed 1+ leukocytes, > 30 RBCs, > 30 WBCs, > 30 epithelials, and 1+ bacteria. Urine culture collected. CTAP wo con demonstrated severe bilateral hydroureteronephrosis, not significantly changed as compared to 06/24/2020. No obstructing stone or lesion. Small bladder appears heterogeneously thick walled with surrounding inflammation; also significant urothelial thickening involving the ureters and renal pelvises with surrounding inflammation. ED course included IV fluids, Vancomycin, Ketorolac, Morphine, Ondansetron. Of note, she was recently treated with cefuroxime for UTI as an outpatient, urine culture 02/09 grew out Coag negative staph and she was switched to Macrobid. Our service is consulted for bilateral hydronephrosis and recurrent UTI. Chart review: Afebrile Creatinine 1.05 WBC 8.77 Hgb 11.8 UC&S prelim gram negative bacilli Urine cytology - Negative for high-grade urothelial carcinoma On IV Ertapenem Patient awake, alert and ambulating back to bed from bathroom upon my arrival. She reports that she feels much better today. No flank pain or abdominal pain. Tolerating PO diet, no nausea or vomiting. No fever or chills. She is voiding spontaneously, feels she is emptying her bladder +/-. She has urinary incontinence. No dysuria. Reports hematuria yesterday prompting her presentation, but has cleared today. She reports she performed CIC for about a year, but stopped due to some bleeding. She reports recurrent UTIs since May. She followed with Dr. Feliciano Dove with [facility] in the past, then transitioned to Dr. Cash with [facility]. She is pending evaluation with Dr. Haji in March. No additional concerns today. Allergies Allergy/AdvReac Type Severity Reaction Status Date / Time nitrofurantoin Allergy Mild tachycardia Verified 02/19/21 11:39 aspirin Allergy Unknown INCREASES Verified 02/19/21 11:39 BLEEDING duloxetine AdvReac Severe SEVERE Verified 02/19/21 11:39 VOMITING caffeine AdvReac Intermediate racing Verified 02/19/21 11:39 heart Sulfa (Sulfonamide AdvReac Intermediate Tinnitis Verified 02/19/21 11:39 Antibiotics) acetaminophen [From Tylenol] AdvReac liver bleed Verified 02/19/21 11:39 lisinopril AdvReac cough, Verified 02/19/21 11:39 white "stuff" all over lungs Home Medications Medication Instructions Recorded Confirmed Type cranberry-vitamin C-flaxseed 2 cap PO QDL #0 11/03/12 02/19/21 History capsule apixaban 5 mg tablet (Eliquis) 5 mg PO BID #60 tab 10/08/19 02/19/21 Rx metoprolol tartrate 25 mg tablet 25 mg PO BID #60 tab 10/08/19 02/19/21 Rx amlodipine 5 mg tablet 5 mg PO BID 06/24/20 02/19/21 History flaxseed oil 1,000 mg capsule 1,000 mg PO QDL #0 06/24/20 02/19/21 History garlic 500 mg PO QDL #0 06/24/20 02/19/21 History glucosamine sulf dipot 1 cap PO QDL 06/24/20 02/19/21 History chlr,msm,chond 550 mg-C 30 mg-aleena 1 mg capsule (Glucosamine Chondroitin) insulin aspart U-100 100 unit/mL 6 unit SUBCUT TID 06/24/20 02/19/21 History subcutaneous solution (Novolog U-100 Insulin aspart) lactobacillus combination no.4 3 3,000 mmu cells PO QAM 06/24/20 02/19/21 History billion cell capsule (Probiotic) magnesium oxide 400 mg (241.3 mg 400 mg PO BID 06/24/20 02/19/21 History magnesium) tablet omega 4-dyu-vyu-fish oil 1,200 mg 1 cap PO QDL 06/24/20 02/19/21 History (144 mg-216 mg) capsule (Fish Oil) atorvastatin 10 mg tablet 10 mg PO HS 11/10/20 02/19/21 History buspirone 15 mg tablet 15 mg PO TID 11/10/20 02/19/21 History ibrutinib 280 mg tablet (Imbruvica) 280 mg PO QAM 11/10/20 02/19/21 History multivitamin 1 tab PO QDL 11/10/20 02/19/21 History omeprazole 40 mg capsule,delayed 40 mg PO QAM 11/10/20 02/19/21 History release ondansetron HCl 4 mg tablet 4 mg PO Q8H PRN 11/10/20 02/19/21 History oxybutynin chloride 10 mg 10 mg PO HS 11/10/20 02/19/21 History tablet,extended release 24 hr potassium chloride 10 mEq 10 meq PO BID 11/10/20 02/19/21 History capsule,extended release calcium carbonate 600 mg calcium 600 mg PO BID tab 12/08/20 02/19/21 History (1,500 mg) tablet (Calcium) cholecalciferol (vitamin D3) 25 1,000 unit PO QDL tab 12/08/20 02/19/21 History mcg (1,000 unit) tablet (Vitamin D3) ascorbic acid (vitamin C) 500 mg 500 g PO BID 12/31/20 02/19/21 History tablet (Vitamin C) ferrous sulfate 325 mg (65 mg 325 mg PO BID 12/31/20 02/19/21 History iron) tablet (FeroSul) vitamin B complex 1 tab PO QDL 12/31/20 02/19/21 History insulin glargine 100 unit/mL (3 26 unit SUBCUT HS #15 ml 01/04/21 02/19/21 Rx mL) subcutaneous pen (Basaglar KwikPen U-100 Insulin) cefuroxime axetil 250 mg tablet 250 mg PO BID 02/19/21 02/19/21 History Patient History Medical History Acute GI bleeding Bilateral hydronephrosis Cataract Cervical cancer Diabetes Elevated bilirubin Hypertension Recurrent UTI Transaminitis Urgency incontinence Urinary tract infection Surgical History H/O: hysterectomy S/P appendectomy S/P cataract surgery both eyes S/P cholecystectomy Social History Smoking Status: Never smoker Second Hand Exposure: No; Do You Dip or Chew Tobacco: No; Tobacco Cessation Education Requested by Patient: No Hx Alcohol Use: No Hx Substance Use: No Preferred Language: Macedonian Communication Ability: Effective Owner/Operator Required: No Beliefs That Will Affect Care: None marital status: Current Living Situation: Spouse current occupational status: retired current occupation: [employer] How many Children do You have: 2 Other Information That Helps Us Care for You: No Feels Safe at Home: Yes Safety Concerns: Feels Safe At This Time Childhood Exposure to Second-Hand Smoke: No Dental Care, Regularly: No Physical Activity Frequency: Does not Exercise Seatbelt Use: always Sunscreen Use: No (hardly in sun d/t medicine ) Assistive Devices: None Review of Systems Constitutional: as per Subjective / HPI Respiratory: no problem reported Cardiovascular: no problem reported Gastrointestinal: as per Subjective / HPI Genitourinary: as per Subjective / HPI Musculoskeletal: no problem reported Integumentary: no problem reported Neurologic: no problem reported Psychiatric: no problem reported Physical Exam Constitutional: well developed and well nourished; no acute distress and not ill appearing Respiratory: normal respiratory effort and able to speak in complete sentences; no respiratory distress and no labored breathing Cardiovascular: Extremities: no pedal edema Gastrointestinal (Abdomen): Inspection/Auscultation: abdomen normal to inspection; abdomen not distended Percussion/Palpation: abdomen soft; abdomen nontender and no guarding Musculoskeletal: Head/Neck/Chest: normocephalic and head atraumatic Skin: no rashes, warm and dry Neurologic: moves all extremities and awake Psychiatric: Orientation: alert and oriented x 3 Genitourinary: no CVA tenderness Results & Data ([facility]) Vital Signs (Past 12 Hours) Vital Signs Temp Pulse Resp BP Pulse Ox 02/20/21 07:52 37.0 C 83 16 128/69 93 02/19/21 23:22 37.9 C H 76 16 117/78 94 PG Care Time/CCT Total # of Minutes Spent Total Time Spent with Patient: Total time spent is greater than 50% in coordination of care (as documented) at patient's floor/unit and/or counseling patient: Coding Level of Care Code 41923 Inpt Consult Level 4 Diagnoses Complicated UTI (urinary tract infection) N39.0 Bilateral hydronephrosis N13.30
[2021-02-20] MEDS ORDERED: cefTRIAXone SODIUM 1,000 MG in DEXTROSE 5% 50 ML IV SCH (13:30)
--- NOTE | 2021-02-20 15:48 | Ultrasound Report ---
RENAL ULTRASOUND HISTORY: b/l hydro, recurrent uti, COMPARISON: Abdomen and pelvis CT 02/19/2021. FINDINGS: Right kidney: 13.8 cm. Severe hydronephrosis, unchanged. Normal corticomedullary differentiation and cortical thickness. Left kidney: 12.8 cm. Severe hydronephrosis, unchanged. Normal corticomedullary differentiation and c ortical thickness. Bladder: Decompressed and not visualized. IMPRESSION: Severe bilateral hydronephrosis, unchanged. ACT 112: Negative or not required by law. Electronically signed by: Kg Weiss M.D. 02/20/2021 3:47 PM
[2021-02-20] MEDS: ATORVASTATIN 10 MG TAB PO SCH (20:30)
[2021-02-20] MEDS: OXYBUTYNIN CHLORIDE XL 5 MG TABCR PO SCH (20:32)
[2021-02-20] MEDS: INSULIN GLARGINE SOLOSTAR 100 UNITS/ML 3 ML PEN SQ SCH (20:44)
[2021-02-21] MEDS: LACTATED RINGER'S 1,000 ML IV SCH (08:13)
[2021-02-21] MEDS: busPIRone 15 MG TAB PO SCH ×2 (08:14→15:22)
[2021-02-21] MEDS: METOPROLOL TARTRATE 25 MG TAB PO SCH (08:14)
[2021-02-21] MEDS: PANTOprazole 40 MG TAB PO SCH (08:15)
[2021-02-21] MEDS: ASCORBIC ACID 500 MG TAB PO SCH (08:15)
[2021-02-21] MEDS: POTASSIUM CHLORIDE 10 MEQ TABCR PO SCH (08:15)
[2021-02-21] MEDS: APIXABAN 5 MG TABLET PO SCH (08:15)
[2021-02-21] MEDS: amLODIPine BESYLATE 5 MG TAB PO SCH (08:15)
[2021-02-21] MEDS: ERTAPENEM SODIUM 1,000 MG in SODIUM CHLORIDE 0.9% 50 ML IV SCH (08:21)
[2021-02-21 08:29] LABS: Hemoglobin 12.2 g/dL (12.0-16.0); Mean Corpuscular Hemoglobin 31.1 pg (25-34); Mean Corpuscular Volume 94.4 fL (80-100); Mean Platelet Volume 12.4 fL (7.4-10.4); Platelet Count 110 K/uL (130-400); RDW Coefficient of Variation 14.4 % (11.5-14.5); RDW Standard Deviation 49.1 fL (36.4-46.3); Red Blood Count 3.92 M/uL (4.2-5.4); White Blood Count 6.95 K/uL (4.8-10.8)
--- NOTE | 2021-02-21 08:33 | Hospitalist Progress Note ---
Date of Service February 21, 2021 Assessment & Plan (1) UTI (urinary tract infection): Plan: Patient with chronic urinary symptoms and un-resolving urine cultures despite multiple courses of abx, most recently completed cefuroxime x 7 days on the . (previously seen 01/27 [facility] and given macrobid x 10 days despite listed on med list for tachycardia and did report fast HR and deep breathing needed to calm down while on). Had been feeling dizzy, lightheaded and difficulty with walking during PCP vist 02/09/21 CTAP severe bilateral hydroureteronephrosis, not significantly changed as compared to 06/24/2020. The etiology remains unclear and is likely bladder related. No obstructing stone or lesion is identified. decompressed bladder with surrounding inflammation c/w cystitis and b/l ascending UTI. ALso noted mildly enlarged retroperitoneal lymph noteds, likely reactive. ?given hx cervical xa Vanco/Rocephin on admission, continued on Rocephin Continue LR @ 80cc/hr for dehydration Given hx ESBL Proteus UTI May 2020 with hematuria, and hematuria at present with retention, discussed with pharmacy and switched to Ertapenem for abx coverage UA with 3+ protein, 3+ blood, 1+ bilirubin, 1+ leuk est, >30 RBC, >30 WBC, >30 epi, 1+ bacteria. 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 ? follow up Giselle Hines with Dr. Feliciano Dove at d/c "stents unlikely to offer any benefit " given lack of renal failure and afebrile status. ?consideration for xiong Did have low grade temp last night 37.9C Voiding but not measured Urine cytology WBC now wnl ID consulted given recurrent infections, multiple agents Diarrhea chronic, felt 2nd to radiation however, given multiple abx for UTI, will check cdiff as reports 7-8x/daily liquid stool (2) CLL (chronic lymphocytic leukemia): Plan: Continue Ibrutinib 280 mg daily -- she did not bring this in but did discuss if someone able to bring in and drop off that we would be able to continue -- attempt to have someone bring for tomorrow Follows with provider in [place], will request records ?? retroperitoneal lymph nodes reactive vs metastatic disease -- req old records from [place] will discuss with provider in house tomorrow for review (3) Dysuria: Plan: As above decreasing with treatment as above (4) History of cervical cancer: Plan: As above - urine cytology (5) Hypertension: Plan: BP stable 134/72 Continue amlodipine and metoprolol (6) Diabetes: Plan: Continue basal bolus insulin - Continue Tresiba- equivalent to pharmacy - Aspart sliding scale CF 20 with ratio 1:15 - Goal <180 (7) Bilateral hydronephrosis: Plan: Chronic from May 2020 Per Urology, no role for stents at this time (8) Chronic pancreatitis: Plan: Stable- continue with LR at maintenance - Lipase wnl 374 (9) Paroxysmal A-fib: Plan: Currently in NSR - Continue Metoprolol - Continue Eliquis for now but may need to hold if persistent hematuria Plan: continued tx UTI as above, await urine c/s ID consultation pending Admission and Anticipated Discharge Date Admission Date: February 19, 2021 Results & Data Results & Data ([facility]) Vital Signs (Past 12 Hours) Vital Signs Temp Pulse Resp BP Pulse Ox 02/21/21 08:06 37 C 71 16 146/76 H 95 02/20/21 22:23 37.2 C 76 16 127/60 91 Laboratory Results 02/21/21 02/21/21 02/20/21 Range/Units 07:44 07:44 20:38 WBC 6.95 (4.8-10.8) K/uL RBC 3.92 L (4.2-5.4) M/uL Hgb 12.2 (12.0-16.0) g/dL Hct 37.0 (37-47) % MCV 94.4 (80-100) fL MCH 31.1 (25-34) pg MCHC 33.0 (32-36) g/dL RDW Std Deviation 49.1 H (36.4-46.3) fL RDW Coeff of Matthew 14.4 (11.5-14.5) % Plt Count 110 L (130-400) K/uL MPV 12.4 H (7.4-10.4) fL Sodium Pending Potassium Pending Chloride Pending Carbon Dioxide Pending Anion Gap Pending BUN Pending Creatinine Pending Est Cr Clr Drug Dosing Pending Est GFR ( Amer) Pending Est GFR (Non-Af Amer) Pending BUN/Creatinine Ratio Pending Glucose Pending POC Glucose 206 H (70-99) mg/dl Calcium Pending Magnesium Pending 02/20/21 02/20/21 Range/Units 17:09 12:01 WBC (4.8-10.8) K/uL RBC (4.2-5.4) M/uL Hgb (12.0-16.0) g/dL Hct (37-47) % MCV (80-100) fL MCH (25-34) pg MCHC (32-36) g/dL RDW Std Deviation (36.4-46.3) fL RDW Coeff of Matthew (11.5-14.5) % Plt Count (130-400) K/uL MPV (7.4-10.4) fL Sodium Potassium Chloride Carbon Dioxide Anion Gap BUN Creatinine Est Cr Clr Drug Dosing Est GFR ( Amer) Est GFR (Non-Af Amer) BUN/Creatinine Ratio Glucose POC Glucose 157 H 236 H (70-99) mg/dl Calcium Magnesium PG Care Time/CCT Total # of Minutes Spent Total Time Spent with Patient: Total time spent is greater than 50% in coordination of care (as documented) at patient's floor/unit and/or counseling patient: Coding Diagnoses UTI (urinary tract infection) N39.0 CLL (chronic lymphocytic leukemia) C91.90 Dysuria R30.0 History of cervical cancer Z85.41 Hypertension I10 Diabetes E11.9 Bilateral hydronephrosis N13.30 Chronic pancreatitis K86.1 Paroxysmal A-fib I48.0
[2021-02-21 08:46] LABS: Basophils # (auto) 0.01 K/uL (0-0.2); Basophils % (auto) 0.1 %; Eosinophils # (auto) 0.02 K/uL (0-0.5); Eosinophils % (auto) 0.3 %; Immature Granulocytes # (auto) 0.04 K/uL (0.00-0.02); Immature Granulocytes % (auto) 0.6 %; Lymphocytes # (auto) 1.26 K/uL (1.2-3.4); Lymphocytes % (auto) 18.1 %; Monocytes # (auto) 0.48 K/uL (0.11-0.59); Monocytes % (auto) 6.9 %; Neutrophils # (auto) 5.14 K/uL (1.4-6.5)
[2021-02-21] MEDS ORDERED: IBRUTINIB PO SCH (09:00)
[2021-02-21 09:02] LABS: BUN Creatinine Ratio 18.5 (10-20); Calcium 9.2 mg/dl (8.5-10.1); Creatinine Clr Calc Pharmacy 53.7 ml/min; Est GFR (African American) 62.5 ml/min; Est GFR (Non-African American) 53.9 ml/min; Magnesium 1.8 mg/dl (1.8-2.4); Potassium 3.9 mmol/L (3.5-5.1)
[2021-02-21] MEDS: INSULIN ASPART 100 UNITS/ML 3 ML PEN SC SCH ×3 (09:53→18:21)
--- NOTE | 2021-02-21 14:54 | Discharge Summary ---
Date of Service February 21, 2021 Admission HPI Per Admitting Provider 80 YOF with past medical history: Obstructive uropathy, CLL, CKD III, chronic bilateral hydronephrosis, urinary in-coherence, cervical cancer (radiation), DM II. Patient has been on and off antibiotics since about November for urinary symptoms. She was originally treated for dysuria and hematuria by her PCP in November. She was started on Ciprofloxacin at that time. Symptoms returned in early December and unequivocal urine done at that time as she was on Pyridium, she was discharged on Levaquin. [id number] she was evaluated at [facility] for diarrhea and continued symptoms- review of PCP note- reveals that urine with >100,000 CFY of staph with susceptibility to Nitrofurantoin this was continued for 10 days, she had been 3 days without medication and return of symptoms leading her to go to her PCP on the 09 of February where she was then placed on cefuroxime 250 PO BID- this culture returned as CONS resistant to Oxacillin; TMP/SMX and susceptibility to Vancomycin. She returns to the EMD today for abdominal pain located in her lower back bilaterally with burning and hematuria on urination. She had some rigors and chills noted yesterday while in [place]. She had minimal nausea on Friday without vomiting. In the EMD she was given a dose of Vancomycin, and CT scan of the abdomen performed. CT of abdomen with evidence of chronic pancreatitis, stable hydronephrosis, and possible ascending UTI. Patient will be admitted for tailoring of antibiotic therapy, and symptom control. Patient has had one dose of her COVID vaccine and her test on admission today is: Negative Admission Exam Per Admitting Provider PHYSICAL EXAM: General: awake, alert, no apparent distress Head: Normocephalic, atraumatic ENT: PERRL, EOMI, no pharyngeal exudate, mucous membranes moist Neuro: AAO x 3, speech clear and appropriate, strength intact bilaterally 5/5, sensation intact and equal all extremities and dermatomes, no pronator drift Chest: equal rise and fall of the chest, no accessory muscle use, no heaves or thrills, Clear to auscultation, on room air, Cardiac: Regular rate and rhythm, telemetry reviewed-NSR, skin warm dry, cap refill <3 seconds, peripheral pulses +2 no JVD, no murmur, no edema GI: NABS x 4 quadrants, soft, nontender to palpation, no rebound, guarding or tenderness : Spontaneously voiding, increase in frequency, hematuria, dysuria and flank pain, no CVA tenderness, Extremities: Normal inspection, no peripheral edema or erythema, calfs nontender to palpation Psych: Normal mood and affect Skin: no rash or erythema Principal Diagnosis UTI Discharge Exam Constitutional well developed and well nourished; no acute distress and not ill appearing Respiratory normal respiratory effort and able to speak in complete sentences; no respiratory distress and no labored breathing Cardiovascular Extremities: no pedal edema Gastrointestinal (Abdomen) Inspection/Auscultation: abdomen normal to inspection; abdomen not distended Percussion/Palpation: abdomen soft; abdomen nontender and no guarding Musculoskeletal Head/Neck/Chest: normocephalic and head atraumatic Skin no rashes, warm and dry Neurologic moves all extremities and awake Psychiatric Orientation: alert and oriented x 3 Genitourinary no CVA tenderness Discharge Data Allergies Allergy/AdvReac Type Severity Reaction Status Date / Time nitrofurantoin Allergy Mild tachycardia Verified 02/19/21 11:39 aspirin Allergy Unknown INCREASES Verified 02/19/21 11:39 BLEEDING duloxetine AdvReac Severe SEVERE Verified 02/19/21 11:39 VOMITING caffeine AdvReac Intermediate racing Verified 02/19/21 11:39 heart Sulfa (Sulfonamide AdvReac Intermediate Tinnitis Verified 02/19/21 11:39 Antibiotics) acetaminophen [From Tylenol] AdvReac liver bleed Verified 02/19/21 11:39 lisinopril AdvReac cough, Verified 02/19/21 11:39 white "stuff" all over lungs Consultations 02/19/21 12:29 ED Decision to Admit Stat 02/20/21 08:24 Consult Urology Routine 02/20/21 16:50 Consult Infectious Diseases Routine 02/20/21 17:14 Consult Health Information Management Routine Ordered Studies 02/19/21 11:07 CT abd pelvis wo con Stat 02/20/21 11:29 US renal/blad retro comp Routine Hospital Course (1) UTI (urinary tract infection): Patient with chronic urinary symptoms and un-resolving urine cultures despite multiple courses of abx, most recently completed cefuroxime x 7 days on the . (previously seen 01/27 [facility] and given macrobid x 10 days despite listed on med list for tachycardia and did report fast HR and deep breathing needed to calm down while on). Had been feeling dizzy, lightheaded and difficulty with walking during PCP vist 02/09/21 CTAP severe bilateral hydroureteronephrosis, not significantly changed as compared to 06/24/2020. The etiology remains unclear and is likely bladder related. No obstructing stone or lesion is identified. decompressed bladder with surrounding inflammation c/w cystitis and b/l ascending UTI. ALso noted mildly enlarged retroperitoneal lymph noteds, likely reactive. ?given hx cervical xa Vanco/Rocephin on admission, continued on Rocephin however was switched to ertapenem given her history of ESBL Proteus UTI in May 2020 with associated hematuria for empiric coverage Urine culture grew Citrobacter pansensitive and was de-escalating to ceftriaxone while awaiting infectious disease consultation however during encounter with patient patient had reported feeling much improved and would prefer to defer infectious disease consultation on an outpatient basis and this information on her clinical was faxed by case management to Dr. Ray's office and they will arrange for outpatient follow-up via telehealth at patient request given her limited transportation ability secondary to chronic diarrhea. Patient was provided with IV fluids and supportive care Urology was consulted and noted the patient had a small capacity contracted bladder secondary to pelvic radiation possible due to reflux and recommended follow-up with specialist at [place] or [place] and patient was given information regarding these providers names possible urinary diversion procedure in the future if continues with recurrent infections and possible underlying reflux They stated that stents would not offer any benefit given lack of renal failure and afebrile status and patient would likely unable to tolerate Spears insertion Patient was discharged on a course of oral ciprofloxacin to complete for total duration of 7 days She is to follow-up with urology and her primary care discharge as well as infectious disease to be arranged early next week by case management once Dr. Ray's office reviews information to see about prophylaxis for recurrent infections Urine cytology without reported abnormality White blood count limits prior to discharge Of note, patient with history of CLL retroperitoneal lymph node enlargement on imaging on admission. Was going to be reviewed by inpatient vegetable canner tomorrow however patient requesting to be discharged and I did recommend that she follow-up with her new vegetable canner for further review of imaging and consideration for progression of her CLL. WBC now wnl ID consulted given recurrent infections, multiple agents Diarrhea chronic, felt 2nd to radiation however, given multiple abx for UTI, will check cdiff as reports 7-8x/daily liquid stool C. difficile testing had been ordered however stool was not able to be tested given that it was formed (2) CLL (chronic lymphocytic leukemia): Continue Ibrutinib 280 mg daily -- she did not bring this in but did discuss if someone able to bring in and drop off that we would be able to continue --did have friend bring this in during inpatient stay Follows with provider in [place], will request records ?? retroperitoneal lymph nodes reactive vs metastatic disease -- req old records from [place] without evidence of known retroperitoneal lymphadenopathy To follow-up with her usual vegetable canner at discharge as above (3) Dysuria: As above decreasing with treatment as above (4) History of cervical cancer: As above - urine cytology abnormality noted (5) Hypertension: Blood pressure remained stable and she was continued on amlodipine and metoprolol (6) Diabetes: Home agents held during inpatient stay and was placed on insulin sliding scale with acceptable blood sugar readings Resume home medications at discharge (7) Bilateral hydronephrosis: Chronic from May 2020 Per Urology, no role for stents at this time (8) Chronic pancreatitis: Stable. No issues Was provided with lactated Ringer's for dehydration admission and poor p.o. intake Lipase wnl [id number] (9) Paroxysmal A-fib: Currently in NSR Continue on Eliquis and metoprolol. Recommend following up with urology to repeat urine to ensure hematuria resolved Blood counts remained stable but of note patient was on continuous IV fluids during her stay Patient was discharged home on a course of ciprofloxacin to complete a course of 7 days. She is to have follow-up with urology and primary care. Case management working on follow-up with Dr. Ray from infectious disease and has faxed clinical information to their office for review and will contact with appointment next week. Should also consider follow-up with urology specialist for urinary diversion future if reflux underlying issue. Provided with image provider at Dr. Min Mckinney Total Time Total Time Spent Total Time Spent (In Minutes): 60 Discharge Plan Discharge Items Patient Disposition: Home - Self-Care Reason For Visit: LUTS Discharge Diagnosis: UTI Goals: You have been hospitalized for an acute medical problem. During your stay at [facility], we have made an effort to correct the problem that brought you to the hospital while keeping you as comfortable as possible. Medications were used to bring your condition under control and your discharge instructions will include directions for any medications you should take after leaving the hospital. Please make sure you see your Primary Care Provider as part of your follow up plan. Activity: Resume your previous activity Non-emergency contact: Primary Care Provider, Specialist and Urologist Call non-emergency contact if: you have any medication questions, your symptoms worsen, your pain is not controlled and you have a fever Follow-up/Referrals: Heraclio Prakash MD [Physician] - (2 weeks office will call with appointment) Keith Hutchinson DO [Primary Care Provider] - 03/01/21 10:00 am Betsy Ray DO [Physician] - Diet: Carb Consistent or DM2 and Heart Healthy Addtl Attending Provider Instructions: You have been hospitalized and found to have a UTI. Urology was consulted but did not feel any benefit would be had from stents, and no stones that were obstructing were identified on imaging. You were treated with IV antibiotics until urine cultures were obtained, which showed Citrobacter freundii, and was sensitive to Ciprofloxain, and you are being sent on with a prescription to continue to completed treatment for a total of 7 days. You already received 3 days of antibiotics while inpatient so you will only need to continue 500mg by mouth TWICE DAILY for FOUR MORE DAYS, for a total of 8 more doses. You will be set up with an appointment with Dr. Ray from infectious disease, as they are able to do consultations over the phone and this may help to get you on treatment for prevention of these issues in the future. It was also discussed with Urology, that if you have continued issues in the future, that you can consider trying to get in with a Dr. Mateo Copeland in [facility] for urinary diversion procedure in the future to help with possible underlying reflux that could pre-dispose you to repeat infections. You should follow up with your vegetable canner/oncologist to review enlarged lymph nodes on imaging, which could be reactive from current infection, but are concerning given your history of CLL. Please follow up with your PCP in the next week to monitor your progress after discharge. Please return to the emergency department if you have any fever, chills, chest pain, shortness of breath, worsening pain, or inability to keep up with oral intake. It has been a pleasure being a part of the medical team providing for you while you have been in the hospital. Take care! Pending Studies at Discharge: No Stand-Alone Forms: My [facility] Medications and DC Order Prescriptions: New ciprofloxacin HCl 500 mg tablet 500 mg PO BID Qty: 8 RF: 0 Continued cranberry-vitamin C-flaxseed Capsule 2 cap PO QDL Qty: 0 RF: 0 Basaglar KwikPen U-100 Insulin 100 unit/mL (3 mL) insulin pen 26 unit SUBCUT HS Qty: 15 RF: 3 amlodipine 5 mg tablet 5 mg PO BID RF: 0 flaxseed oil 1,000 mg Capsule 1,000 mg PO QDL Qty: 0 RF: 0 insulin aspart U-100 [Novolog U-100 Insulin aspart] 100 unit/mL solution 6 unit subcut TID RF: 0 garlic Capsule 500 mg PO QDL Qty: 0 RF: 0 Probiotic 3 billion cell Capsule 3,000 mmu cells PO QAM RF: 0 Glucosamine Chondroitin 550-30-1 mg Capsule 1 cap PO QDL RF: 0 magnesium oxide 400 mg (241.3 mg magnesium) tablet 400 mg PO BID RF: 0 omega 6-joz-avo-fish oil [Fish Oil] 1,200 (144-216) mg Capsule 1 cap PO QDL RF: 0 calcium carbonate [Calcium 600] 600 mg calcium (1,500 mg) tablet 600 mg PO BID RF: 0 cholecalciferol (vitamin D3) [Vitamin D3] 25 mcg (1,000 unit) tablet 1,000 unit PO QDL RF: 0 metoprolol tartrate 25 mg Tablet 25 mg PO BID Qty: 60 RF: 0 Eliquis 5 mg Tablet 5 mg PO BID Qty: 60 RF: 0 multivitamin Tablet 1 tab PO QDL RF: 0 potassium chloride 10 mEq Capsule, Extended Release 10 meq PO BID RF: 0 atorvastatin 10 mg tablet 10 mg PO HS RF: 0 oxybutynin chloride 10 mg tablet extended release 24hr 10 mg PO HS RF: 0 ondansetron HCl 4 mg tablet 4 mg PO Q8H PRN (Reason: Nausea) RF: 0 omeprazole 40 mg capsule,delayed release(DR/EC) 40 mg PO QAM RF: 0 buspirone 15 mg tablet 15 mg PO TID RF: 0 Imbruvica 280 mg tablet 280 mg PO QAM RF: 0 ascorbic acid (vitamin C) [Vitamin C] 500 mg tablet 500 g PO BID RF: 0 ferrous sulfate [FeroSul] 325 mg (65 mg iron) tablet 325 mg PO BID RF: 0 vitamin B complex Tablet 1 tab PO QDL RF: 0 Discontinued cefuroxime axetil 250 mg tablet 250 mg PO BID RF: 0 Discharge Orders: Discharge Order (Routine); Ordered 02/21/21 Ordered By: Brooke Fuentes Admission Data Admit Date/Time: 02/19/21 14:52 Attending Provider: Tien Stevenson Admit Provider: Alexey Dove Primary Care Provider: Keith Hutchinson Other Providers: Alexey Dove ; Heraclio Prakash ; Neno Cardenas ; Taryn Izquierdo ; Jaswant Mcneill I. ; Kvng Gresham II ; Nadja Ruiz ; Guido Johnson Other Interventions: Discharge Summary Assessment (RN) Last Done: 02/21/21 16:51 Coding Level of Care Code D/C DAY MANAGEMENT >30 MINS Diagnoses UTI (urinary tract infection) N39.0 CLL (chronic lymphocytic leukemia) C91.90 Dysuria R30.0 History of cervical cancer Z85.41 Hypertension I10 Diabetes E11.9 Bilateral hydronephrosis N13.30 Chronic pancreatitis K86.1 Paroxysmal A-fib I48.0
--- NOTE | 2021-02-21 15:54 | Electrocardiogram Report ---
Test Reason : Blood Pressure : / mmHG Vent. Rate : 075 BPM Atrial Rate : 075 BPM P-R Int : 206 ms QRS Dur : 084 ms QT Int : 394 ms P-R-T Axes : 073 035 037 degrees QTc Int : 439 ms Normal sinus rhythm Normal ECG When compared with ECG of 24-JUN-2020 13:41, No significant change Confirmed by Roc Avila ([id number]) on 02/21/2021 3:53:59 PM Referred By: REFERRED SELF Confirmed By:Roc Avila
[2021-02-22] MEDS ORDERED: cefTRIAXone SODIUM 2,000 MG in DEXTROSE 5% 50 ML IV SCH (09:00)
== END 2021-02-21 19:22 | disposition home or self-care (01) | DRG 690 ==
LOC: ED 09:51 → 3N 14:52 → SUATTDRO 14:52 → 3N 16:15
DX: N39.0 Urinary tract infection, site not specified; Z79.4 Long term (current) use of insulin; K52.1 Toxic gastroenteritis and colitis; N13.6 Pyonephrosis; Z88.6 Allergy status to analgesic agent; N18.30 Chronic kidney disease, stage 3 unspecified; E11.22 Type 2 diabetes mellitus with diabetic chronic kidney disease; C91.11 Chronic lymphocytic leukemia of B-cell type in remission; Z85.41 Personal history of malignant neoplasm of cervix uteri; K86.1 Other chronic pancreatitis; I12.9 Hypertensive chronic kidney disease with stage 1 through stage 4 chronic kidney disease, or unspecified chronic kidney disease; Z88.2 Allergy status to sulfonamides; I48.0 Paroxysmal atrial fibrillation

== ENCOUNTER 2021-02-23 20:02 | Observation (INO) ==
[2021-02-23 21:10] LABS: Basophils # (auto) 0.01 K/uL (0-0.2); Basophils % (auto) 0.1 %; Eosinophils # (auto) 0.02 K/uL (0-0.5); Eosinophils % (auto) 0.1 %; Hematocrit (blood only) 38.2 % (37-47); Hemoglobin 12.8 g/dL (12.0-16.0); Immature Granulocytes # (auto) 0.06 K/uL (0.00-0.02); Immature Granulocytes % (auto) 0.3 %; Lymphocytes # (auto) 1.68 K/uL (1.2-3.4); Lymphocytes % (auto) 9.1 %; Mean Corpuscular Hemoglobin 31.2 pg (25-34); Mean Corpuscular Hgb Conc 33.5 g/dL (32-36); Mean Corpuscular Volume 93.2 fL (80-100); Mean Platelet Volume 12.6 fL (7.4-10.4); Monocytes # (auto) 0.87 K/uL (0.11-0.59); Monocytes % (auto) 4.7 %; Neutrophils # (auto) 15.76 K/uL (1.4-6.5); Neutrophils % (auto) 85.7 %; Platelet Count 157 K/uL (130-400); RDW Coefficient of Variation 13.9 % (11.5-14.5)
[2021-02-23 21:15] LABS: Appearance Urine Clear (Clear); Bacteria Urine Automated Negative (Negative); Bilirubin Urine Negative (Negative); Blood Urine Trace (Negative); Cast Urine Automated 0 /lpf (0-5); Color Urine Yellow; Glucose Urine UA Negative (Negative); Ketones Urine Negative (Negative); Leukocyte Esterase Urine 1+ (Negative); Nitrite Urine Negative (Negative); Protein Urine Negative (Negative); RBC Urine Automated 0-4 /hpf (0-4); Specific Gravity Urine 1.009 (1.000-1.030); Urobilinogen Urine Negative (Negative); pH Urine 5.5 (4.5-7.5)
[2021-02-23] MEDS ORDERED: SODIUM CHLORIDE 0.9% 500 ML IV ONE (21:25)
[2021-02-23 21:28] LABS: Albumin Level 3.4 gm/dl (3.4-5.0); BUN Creatinine Ratio 13.5 (10-20); Calcium 9.3 mg/dl (8.5-10.1); Creatinine Clr Calc Pharmacy 52.4 ml/min; Est GFR (African American) 57.6 ml/min; Est GFR (Non-African American) 49.7 ml/min
[2021-02-23 21:30] LABS: Albumin Globulin Ratio 0.9 (0.9-2); Bilirubin,Total 1.8 mg/dl (0.2-1); Total Protein 7.4 gm/dl (6.4-8.2)
--- NOTE | 2021-02-23 21:31 | Emergency Department Note ---
History of Present Illness General Chief complaint: Illness Stated complaint: fever, nausea, body aches Time Seen by Provider: 02/23/21 21:13 Source: patient Mode of arrival: ambulatory Limitations: no limitations History of Present Illness Maximum Pain Intensity: 5 This patient is a 72-year-old female who was just hospitalized here from Friday through Friday and diagnosed with a UTI, comes in after feeling worse today she had temperature of 100.4. She is been nauseated had body aches she has had a little bit of a nonproductive cough. She has been on Cipro but they switched her to Macrobid yesterday she says she feels weak all over but no focal numbness or weakness. Denies chest pain but felt like her heart was pounding earlier. She has had a Covid vaccine x1. She was Covid tested recently negative. She does have a history of ESBL although the last urine culture did not grow out ESBL she has had pelvic radiation as well which is caused cystitis and she also has history of chronic bilateral hydronephrosis. Home Medications Medication Instructions Recorded Confirmed Type cranberry-vitamin C-flaxseed 2 cap PO QDL #0 11/03/12 02/19/21 History capsule apixaban 5 mg tablet (Eliquis) 5 mg PO BID #60 tab 10/08/19 02/19/21 Rx metoprolol tartrate 25 mg tablet 25 mg PO BID #60 tab 10/08/19 02/19/21 Rx amlodipine 5 mg tablet 5 mg PO BID 06/24/20 02/19/21 History flaxseed oil 1,000 mg capsule 1,000 mg PO QDL #0 06/24/20 02/19/21 History garlic 500 mg PO QDL #0 06/24/20 02/19/21 History glucosamine sulf dipot 1 cap PO QDL 06/24/20 02/19/21 History chlr,msm,chond 550 mg-C 30 mg-aleena 1 mg capsule (Glucosamine Chondroitin) insulin aspart U-100 100 unit/mL 6 unit SUBCUT TID 06/24/20 02/19/21 History subcutaneous solution (Novolog U-100 Insulin aspart) lactobacillus combination no.4 3 3,000 mmu cells PO QAM 06/24/20 02/19/21 History billion cell capsule (Probiotic) magnesium oxide 400 mg (241.3 mg 400 mg PO BID 06/24/20 02/19/21 History magnesium) tablet omega 7-mbj-sko-fish oil 1,200 mg 1 cap PO QDL 06/24/20 02/19/21 History (144 mg-216 mg) capsule (Fish Oil) atorvastatin 10 mg tablet 10 mg PO HS 11/10/20 02/19/21 History buspirone 15 mg tablet 15 mg PO TID 11/10/20 02/19/21 History ibrutinib 280 mg tablet (Imbruvica) 280 mg PO QAM 11/10/20 02/19/21 History multivitamin 1 tab PO QDL 11/10/20 02/19/21 History omeprazole 40 mg capsule,delayed 40 mg PO QAM 11/10/20 02/19/21 History release ondansetron HCl 4 mg tablet 4 mg PO Q8H PRN 11/10/20 02/19/21 History oxybutynin chloride 10 mg 10 mg PO HS 11/10/20 02/19/21 History tablet,extended release 24 hr potassium chloride 10 mEq 10 meq PO BID 11/10/20 02/19/21 History capsule,extended release calcium carbonate 600 mg calcium 600 mg PO BID tab 12/08/20 02/19/21 History (1,500 mg) tablet (Calcium) cholecalciferol (vitamin D3) 25 1,000 unit PO QDL tab 12/08/20 02/19/21 History mcg (1,000 unit) tablet (Vitamin D3) ascorbic acid (vitamin C) 500 mg 500 g PO BID 12/31/20 02/19/21 History tablet (Vitamin C) ferrous sulfate 325 mg (65 mg 325 mg PO BID 12/31/20 02/19/21 History iron) tablet (FeroSul) vitamin B complex 1 tab PO QDL 12/31/20 02/19/21 History insulin glargine 100 unit/mL (3 26 unit SUBCUT HS #15 ml 01/04/21 02/19/21 Rx mL) subcutaneous pen (Basaglar KwikPen U-100 Insulin) ciprofloxacin HCl 500 mg tablet 500 mg PO BID #8 tab 02/21/21 Rx Allergies Allergy/AdvReac Type Severity Reaction Status Date / Time nitrofurantoin Allergy Mild tachycardia Verified 02/19/21 11:39 aspirin Allergy Unknown INCREASES Verified 02/19/21 11:39 BLEEDING duloxetine AdvReac Severe SEVERE Verified 02/19/21 11:39 VOMITING caffeine AdvReac Intermediate racing Verified 02/19/21 11:39 heart Sulfa (Sulfonamide AdvReac Intermediate Tinnitis Verified 02/19/21 11:39 Antibiotics) acetaminophen [From Tylenol] AdvReac liver bleed Verified 02/19/21 11:39 lisinopril AdvReac cough, Verified 02/19/21 11:39 white "stuff" all over lungs Past Med/Surg History Medical History Acute GI bleeding Bilateral hydronephrosis Cataract Cervical cancer Diabetes Elevated bilirubin Hypertension Recurrent UTI Transaminitis Urgency incontinence Urinary tract infection Surgical History H/O: hysterectomy S/P appendectomy S/P cataract surgery both eyes S/P cholecystectomy Social History Smoking Status: Never smoker Second Hand Exposure: No; Hx Alcohol Use: No Hx Substance Use: No Preferred Language: Norwegian Communication Ability: Effective 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 Beliefs That Will Affect Care: None marital status: Current Living Situation: Spouse current occupational status: retired current occupation: [employer] How many Children do You have: 2 Feels Safe at Home: Yes Childhood Exposure to Second-Hand Smoke: No Dental Care, Regularly: No Physical Activity Frequency: Does not Exercise Seatbelt Use: always Sunscreen Use: No (hardly in sun d/t medicine ) Assistive Devices: None Review of Systems A total of 10 systems reviewed and were otherwise negative Physical Exam Vital Signs Vital Signs - 24 hr 02/23/21 20:07 02/23/21 21:04 02/23/21 22:06 Temperature 37.5 C 37.4 C Temperature Source Temporal Artery Scan Oral Pulse Rate 78 79 Pulse Rhythm Regular Pulse Strength Normal Respiratory Rate 16 20 22 Respiratory Effort / Characteristics Non-Labored Non-Labored Spontaneous Respiratory Depth Normal Normal Respiratory Pattern Regular Blood Pressure 137/66 165/65 H Blood Pressure [Left Arm] 151/69 H Blood Pressure Mean 89 98 Blood Pressure Mean [Left Arm] 96 Blood Pressure Position Sitting Blood Pressure Position [Left Arm] Lying Pulse Oximetry 100 95 94 Oxygen Delivery Method Room Air Room Air Sepsis Recent Fever Within 48 Hours No Sepsis New/Unexplained Change in Mental Status N/A Sepsis Action Taken by Nursing No Action Required 02/23/21 23:00 02/24/21 00:00 Temperature Temperature Source Pulse Rate 82 79 Pulse Rhythm Pulse Strength Respiratory Rate 20 20 Respiratory Effort / Characteristics Respiratory Depth Respiratory Pattern Blood Pressure 167/65 H 159/70 H Blood Pressure [Left Arm] Blood Pressure Mean 99 99 Blood Pressure Mean [Left Arm] Blood Pressure Position Blood Pressure Position [Left Arm] Pulse Oximetry 93 93 Oxygen Delivery Method Sepsis Recent Fever Within 48 Hours Sepsis New/Unexplained Change in Mental Status Sepsis Action Taken by Nursing General: Well developed well nourished in no acute distress, breathing comfortably on room air. Normal speech HEENT: Normal cephalic atraumatic. Pupils are equal round and reactive to light. Extraocular movements are intact. Oropharynx is pink with moist mucous membranes. No swelling of the mouth lips or tongue. Neck: Supple with a midline trachea. No meningeal signs or stiffness, no JVD or bruits. No Stridor. Chest: Clear to auscultation bilaterally. No wheezes or rhonchi. No increased work of breathing. Heart: Regular rate and rhythm without murmurs or gallops. Abdomen: Soft nontender, nondistended without rebound guarding or rigidity. Extremities: No cyanosis clubbing or edema. No calf tenderness or assymetry Spine/Back. Non tender to palpation. No CVA tenderness Skin: Good turgor without rashes. Neurologic exam: Cranial nerves two through 12 are intact. Motor and sensation are intact and symmetrical throughout. Course Administered Medications Discontinued Medications Sodium Chloride (Nss) 500 mls @ 999 mls/hr IV .Q31M ONE Stop: 02/23/21 21:55 Last Infusion: 02/23/21 23:02 Dose: 0 mls/hr Documented by: [id number] Admin: 02/23/21 22:03 Dose: 999 mls/hr Documented by: [id number] Ceftriaxone Sodium (Rocephin) 2,000 mg in 70 mls @ 140 mls/hr IV NOW STA Stop: 02/23/21 22:08 Last Infusion: 02/23/21 23:02 Dose: 0 mls/hr Documented by: [id number] Admin: 02/23/21 22:03 Dose: 140 mls/hr Documented by: [id number] Medical Decision Making Differential Diagnosis Sepsis, UTI, pyelonephritis, pneumonia, Covid, electrolyte or metabolic abnormality Medical Records Attestation: I reviewed the patient's medical records. Home Medications Current Medication List: was personally reviewed by me Laboratory Data Attestation: I reviewed the patient's lab results. Result diagrams: 02/23/21 20:58 02/23/21 20:58 Lab Results 02/23/21 02/23/21 02/23/21 Range/Units 20:55 20:58 20:58 WBC 18.40 H (4.8-10.8) K/uL RBC 4.10 L (4.2-5.4) M/uL Hgb 12.8 (12.0-16.0) g/dL Hct 38.2 (37-47) % MCV 93.2 (80-100) fL MCH 31.2 (25-34) pg MCHC 33.5 (32-36) g/dL RDW Std Deviation 48.0 H (36.4-46.3) fL RDW Coeff of Matthew 13.9 (11.5-14.5) % Plt Count 157 (130-400) K/uL MPV 12.6 H (7.4-10.4) fL Immature Gran % (Auto) 0.3 % Neut % (Auto) 85.7 % Lymph % (Auto) 9.1 % Cameron % (Auto) 4.7 % Eos % (Auto) 0.1 % Baso % (Auto) 0.1 % Neut # (Auto) 15.76 H (1.4-6.5) K/uL Lymph # (Auto) 1.68 (1.2-3.4) K/uL Cameron # (Auto) 0.87 H (0.11-0.59) K/uL Eos # (Auto) 0.02 (0-0.5) K/uL Baso # (Auto) 0.01 (0-0.2) K/uL Immature Gran # (Auto) 0.06 H (0.00-0.02) K/uL Sodium 136 (136-145) mmol/L Potassium 4.0 (3.5-5.1) mmol/L Chloride 106 (98-107) mmol/L Carbon Dioxide 23 (21-32) mmol/L Anion Gap 7.0 (3-11) BUN 14 (7-18) mg/dl Creatinine 1.07 (0.6-1.2) mg/dl Est Cr Clr Drug Dosing 52.4 ml/min Est GFR ( Amer) 57.6 ml/min Est GFR (Non-Af Amer) 49.7 ml/min BUN/Creatinine Ratio 13.5 (10-20) Glucose 150 H (70-99) mg/dl Lactate (0.4-2.0) mmol/L Calcium 9.3 (8.5-10.1) mg/dl Total Bilirubin 1.8 H (0.2-1) mg/dl AST 24 (15-37) U/L ALT 68 (12-78) U/L Alkaline Phosphatase 113 (45-117) U/L Troponin I (0-0.045) ng/ml Total Protein 7.4 (6.4-8.2) gm/dl Albumin 3.4 (3.4-5.0) gm/dl Globulin 4.0 (2.5-4.0) gm/dl Albumin/Globulin Ratio 0.9 (0.9-2) Urine Color Yellow Urine Appearance Clear (Clear) Urine pH 5.5 (4.5-7.5) Ur Specific Dougherty 1.009 (1.000-1.030) Urine Protein Negative (Negative) Urine Glucose (UA) Negative (Negative) Urine Ketones Negative (Negative) Urine Blood Trace H (Negative) Urine Nitrite Negative (Negative) Urine Bilirubin Negative (Negative) Urine Urobilinogen Negative (Negative) Ur Leukocyte Esterase 1+ H (Negative) Urine WBC (Auto) 10-30 H (0-5) /hpf Urine RBC (Auto) 0-4 (0-4) /hpf U Hyaline Cast (Auto) 0 (0-5) /lpf U Epithel Cells (Auto) 5-10 H (0-5) /lpf Urine Bacteria (Auto) Negative (Negative) COVID-19 Eval Order SARS-CoV-2 (PCR) (Negative) 02/23/21 02/23/21 02/23/21 Range/Units 21:42 21:44 21:44 WBC (4.8-10.8) K/uL RBC (4.2-5.4) M/uL Hgb (12.0-16.0) g/dL Hct (37-47) % MCV (80-100) fL MCH (25-34) pg MCHC (32-36) g/dL RDW Std Deviation (36.4-46.3) fL RDW Coeff of Matthew (11.5-14.5) % Plt Count (130-400) K/uL MPV (7.4-10.4) fL Immature Gran % (Auto) % Neut % (Auto) % Lymph % (Auto) % Cameron % (Auto) % Eos % (Auto) % Baso % (Auto) % Neut # (Auto) (1.4-6.5) K/uL Lymph # (Auto) (1.2-3.4) K/uL Cameron # (Auto) (0.11-0.59) K/uL Eos # (Auto) (0-0.5) K/uL Baso # (Auto) (0-0.2) K/uL Immature Gran # (Auto) (0.00-0.02) K/uL Sodium (136-145) mmol/L Potassium (3.5-5.1) mmol/L Chloride (98-107) mmol/L Carbon Dioxide (21-32) mmol/L Anion Gap (3-11) BUN (7-18) mg/dl Creatinine (0.6-1.2) mg/dl Est Cr Clr Drug Dosing ml/min Est GFR ( Amer) ml/min Est GFR (Non-Af Amer) ml/min BUN/Creatinine Ratio (10-20) Glucose (70-99) mg/dl Lactate 1.0 (0.4-2.0) mmol/L Calcium (8.5-10.1) mg/dl Total Bilirubin (0.2-1) mg/dl AST (15-37) U/L ALT (12-78) U/L Alkaline Phosphatase (45-117) U/L Troponin I (0-0.045) ng/ml Total Protein (6.4-8.2) gm/dl Albumin (3.4-5.0) gm/dl Globulin (2.5-4.0) gm/dl Albumin/Globulin Ratio (0.9-2) Urine Color Urine Appearance (Clear) Urine pH (4.5-7.5) Ur Specific Dougherty (1.000-1.030) Urine Protein (Negative) Urine Glucose (UA) (Negative) Urine Ketones (Negative) Urine Blood (Negative) Urine Nitrite (Negative) Urine Bilirubin (Negative) Urine Urobilinogen (Negative) Ur Leukocyte Esterase (Negative) Urine WBC (Auto) (0-5) /hpf Urine RBC (Auto) (0-4) /hpf U Hyaline Cast (Auto) (0-5) /lpf U Epithel Cells (Auto) (0-5) /lpf Urine Bacteria (Auto) (Negative) COVID-19 Eval Order Covid19 at [facility] SARS-CoV-2 (PCR) POSITIVE A* (Negative) 02/23/21 Range/Units 21:50 WBC (4.8-10.8) K/uL RBC (4.2-5.4) M/uL Hgb (12.0-16.0) g/dL Hct (37-47) % MCV (80-100) fL MCH (25-34) pg MCHC (32-36) g/dL RDW Std Deviation (36.4-46.3) fL RDW Coeff of Matthew (11.5-14.5) % Plt Count (130-400) K/uL MPV (7.4-10.4) fL Immature Gran % (Auto) % Neut % (Auto) % Lymph % (Auto) % Cameron % (Auto) % Eos % (Auto) % Baso % (Auto) % Neut # (Auto) (1.4-6.5) K/uL Lymph # (Auto) (1.2-3.4) K/uL Cameron # (Auto) (0.11-0.59) K/uL Eos # (Auto) (0-0.5) K/uL Baso # (Auto) (0-0.2) K/uL Immature Gran # (Auto) (0.00-0.02) K/uL Sodium (136-145) mmol/L Potassium (3.5-5.1) mmol/L Chloride (98-107) mmol/L Carbon Dioxide (21-32) mmol/L Anion Gap (3-11) BUN (7-18) mg/dl Creatinine (0.6-1.2) mg/dl Est Cr Clr Drug Dosing ml/min Est GFR ( Amer) ml/min Est GFR (Non-Af Amer) ml/min BUN/Creatinine Ratio (10-20) Glucose (70-99) mg/dl Lactate (0.4-2.0) mmol/L Calcium (8.5-10.1) mg/dl Total Bilirubin (0.2-1) mg/dl AST (15-37) U/L ALT (12-78) U/L Alkaline Phosphatase (45-117) U/L Troponin I < 0.015 (0-0.045) ng/ml Total Protein (6.4-8.2) gm/dl Albumin (3.4-5.0) gm/dl Globulin (2.5-4.0) gm/dl Albumin/Globulin Ratio (0.9-2) Urine Color Urine Appearance (Clear) Urine pH (4.5-7.5) Ur Specific Dougherty (1.000-1.030) Urine Protein (Negative) Urine Glucose (UA) (Negative) Urine Ketones (Negative) Urine Blood (Negative) Urine Nitrite (Negative) Urine Bilirubin (Negative) Urine Urobilinogen (Negative) Ur Leukocyte Esterase (Negative) Urine WBC (Auto) (0-5) /hpf Urine RBC (Auto) (0-4) /hpf U Hyaline Cast (Auto) (0-5) /lpf U Epithel Cells (Auto) (0-5) /lpf Urine Bacteria (Auto) (Negative) COVID-19 Eval Order SARS-CoV-2 (PCR) (Negative) Imaging Data Attestation: I personally reviewed and interpreted this imaging study as follows: My Impression: Chest x-rayno acute infiltrate, failure, pneumothorax seen ECG Data Attestation: I personally reviewed and interpreted this ECG as follows: Indication: + weakness Rate (beats per minute): 80 Rhythm: + normal sinus ECG Intervals/blocks: + Normal QRS, + Normal QT and + Normal HI ECG Clinton: + Normal ECG ST segments: + Normal ST segments ECG Findings: no PACs or no PVCs Comparison ECG Date: from (02/19/21) [facility] Narrative This patient comes in as described above. She was just released from the hospital 2 days ago with a UTI she comes back with worsening symptoms her white count was elevated 18 she is afebrile here but had a low-grade temperature at home. She feels lousy. She has stable vital signs IV access was established she was hydrated with normal saline blood work was obtained. I have reviewed her records. She was given empiric IV antibiotics with Rocephin 2 g IV. Her lactic acid is not elevated. She is nursing of electrolyte or metabolic abnormalities. She did have imaging done a last couple days which shows chronic bilateral hydronephrosis without stone. Her urinalysis does suggest infection as well. Reviewing her last cultures it was pansensitive although she does have a history of ESBL. I do think she needs to be admitted for IV antibiotics and further treatment and evaluation of consult Dr. Frances to see her for these measures. EKG does not suggest acute coronary syndrome or arrhythmia. Presently her Covid test did come back positive. Continuous cardiac monitoring: Order was placed in the EMR for continuous cardiac monitoring. Upon my interpretation she was noted to be in normal sinus rhythm with a rate of 80. Impression & Plan Complicated UTI (urinary tract infection), CLL (chronic lymphocytic leukemia), Acute UTI (urinary tract infection), Weakness, Elevated WBC count, COVID Discharge Plan Visit Data Chief Complaint: Illness Stated Complaint: fever, nausea, body aches ED Provider: Marcos Robbins Discharge Problem: Complicated UTI (urinary tract infection), CLL (chronic lymphocytic leukemia), Acute UTI (urinary tract infection), Weakness, Elevated WBC count, COVID Forms Stand Alone Forms: My [facility] [place] [employer] Prescriptions Prescriptions: No Action cranberry-vitamin C-flaxseed Capsule 2 cap PO QDL Qty: 0 RF: 0 Basaglar KwikPen U-100 Insulin 100 unit/mL (3 mL) insulin pen 26 unit SUBCUT HS Qty: 15 RF: 3 amlodipine 5 mg tablet 5 mg PO BID RF: 0 flaxseed oil 1,000 mg Capsule 1,000 mg PO QDL Qty: 0 RF: 0 insulin aspart U-100 [Novolog U-100 Insulin aspart] 100 unit/mL solution 6 unit subcut TID RF: 0 garlic Capsule 500 mg PO QDL Qty: 0 RF: 0 Probiotic 3 billion cell Capsule 3,000 mmu cells PO QAM RF: 0 Glucosamine Chondroitin 550-30-1 mg Capsule 1 cap PO QDL RF: 0 magnesium oxide 400 mg (241.3 mg magnesium) tablet 400 mg PO BID RF: 0 omega 1-jmh-ygn-fish oil [Fish Oil] 1,200 (144-216) mg Capsule 1 cap PO QDL RF: 0 calcium carbonate [Calcium 600] 600 mg calcium (1,500 mg) tablet 600 mg PO BID RF: 0 cholecalciferol (vitamin D3) [Vitamin D3] 25 mcg (1,000 unit) tablet 1,000 unit PO QDL RF: 0 metoprolol tartrate 25 mg Tablet 25 mg PO BID Qty: 60 RF: 0 Eliquis 5 mg Tablet 5 mg PO BID Qty: 60 RF: 0 ciprofloxacin HCl 500 mg tablet 500 mg PO BID Qty: 8 RF: 0 multivitamin Tablet 1 tab PO QDL RF: 0 potassium chloride 10 mEq Capsule, Extended Release 10 meq PO BID RF: 0 atorvastatin 10 mg tablet 10 mg PO HS RF: 0 oxybutynin chloride 10 mg tablet extended release 24hr 10 mg PO HS RF: 0 ondansetron HCl 4 mg tablet 4 mg PO Q8H PRN (Reason: Nausea) RF: 0 omeprazole 40 mg capsule,delayed release(DR/EC) 40 mg PO QAM RF: 0 buspirone 15 mg tablet 15 mg PO TID RF: 0 Imbruvica 280 mg tablet 280 mg PO QAM RF: 0 ascorbic acid (vitamin C) [Vitamin C] 500 mg tablet 500 g PO BID RF: 0 ferrous sulfate [FeroSul] 325 mg (65 mg iron) tablet 325 mg PO BID RF: 0 vitamin B complex Tablet 1 tab PO QDL RF: 0 Referrals Referrals: Keith Hutchinson DO [Primary Care Provider] -
[2021-02-23] MEDS ORDERED: cefTRIAXone SODIUM 2,000 MG/70 ML BAG IV STA (21:39)
--- NOTE | 2021-02-23 22:51 | History & Physical Report ---
Date of Service February 23, 2021 Assessment & Plan (1) Acute UTI (urinary tract infection): Plan: Citrobacter freundii urinary tract infection/history of ESBL Proteus mirabilis UTI- Inpatient discharge notes report being discharged on ciprofloxacin, which the patient reports was then changed to nitrofurantoin as an outpatient Outpatient transition visit notes report the patient was discharged on cefuroxime and then changed to Cipro. Patient appears to have had adverse reaction to the antibiotic she was changed to, which will need to be verified by look at the pill bottles Admit on ceftriaxone 2 g IV daily to treat the Citrobacter, as the ESBL Proteus did not grow out on culture 02/19. (2) COVID-19 virus infection: Plan: Patient had a negative COVID-19 test on 02/19. She tested positive in the ED this evening on 02/24. She is not hypoxic and not short of breath, and was attributing her generalized symptoms to a reaction to the second antibiotic that she was changed to. For now, the patient will be admitted to a negative pressure room, and follow symptoms closely. Of note, patient had a normal-appearing chest x-ray in the ED this evening, and was not hypoxic. (3) Paroxysmal A-fib: Plan: Paroxysmal A. fib/hypertension- Continue amlodipine, Eliquis and metoprolol tartrate (4) Hypertension: Plan: See above (5) Diabetes: Plan: Hold standing order for NovoLog 6 units subcu 3 times daily Reduce glargine from 26 to 14 units subcu at bedtime due to anticipated decreased appetite Place on Accu-Cheks before meals and at bedtime with NovoLog coverage per scale (6) Complicated UTI (urinary tract infection): Plan: See above (7) CLL (chronic lymphocytic leukemia): Plan: Continue supportive treatments (8) Metastatic cancer to intra-abdominal lymph nodes: Plan: Continue supportive treatments History of Present Illness Chief Complaint: The patient presents to the emergency department with complaint of nausea, generalized body aches and a temperature of 100.4. It began earlier in the day today. Primary Care Provider: Keith Hutchinson DO The patient is a 80-year-old female with a past medical history including acute pyelonephritis, paroxysmal atrial fibrillation, chronic pancreatitis, ESBL Proteus mirabilis UTI, peripheral neuropathy, anxiety, hypertension, diabetes mellitus, CLL, metastatic cancer to intra-abdominal lymph nodes and adverse drug reactions. She had been admitted to [facility] from 02/19-02/21 for a Citrobacter freundii UTI, for which she was discharged on a course of ciprofloxacin. She reports that she was changed to nitrofurantoin yesterday, and shortly thereafter developed the above symptoms. Allergies Allergy/AdvReac Type Severity Reaction Status Date / Time nitrofurantoin Allergy Mild tachycardia Verified 02/19/21 11:39 aspirin Allergy Unknown INCREASES Verified 02/19/21 11:39 BLEEDING duloxetine AdvReac Severe SEVERE Verified 02/19/21 11:39 VOMITING caffeine AdvReac Intermediate racing Verified 02/19/21 11:39 heart Sulfa (Sulfonamide AdvReac Intermediate Tinnitis Verified 02/19/21 11:39 Antibiotics) acetaminophen [From Tylenol] AdvReac liver bleed Verified 02/19/21 11:39 lisinopril AdvReac cough, Verified 02/19/21 11:39 white "stuff" all over lungs Home Medications Medication Instructions Recorded Confirmed Type cranberry-vitamin C-flaxseed 2 cap PO QDL #0 11/03/12 02/19/21 History capsule apixaban 5 mg tablet (Eliquis) 5 mg PO BID #60 tab 10/08/19 02/19/21 Rx metoprolol tartrate 25 mg tablet 25 mg PO BID #60 tab 10/08/19 02/19/21 Rx amlodipine 5 mg tablet 5 mg PO BID 06/24/20 02/19/21 History flaxseed oil 1,000 mg capsule 1,000 mg PO QDL #0 06/24/20 02/19/21 History garlic 500 mg PO QDL #0 06/24/20 02/19/21 History glucosamine sulf dipot 1 cap PO QDL 06/24/20 02/19/21 History chlr,msm,chond 550 mg-C 30 mg-aleena 1 mg capsule (Glucosamine Chondroitin) insulin aspart U-100 100 unit/mL 6 unit SUBCUT TID 06/24/20 02/19/21 History subcutaneous solution (Novolog U-100 Insulin aspart) lactobacillus combination no.4 3 3,000 mmu cells PO QAM 06/24/20 02/19/21 History billion cell capsule (Probiotic) magnesium oxide 400 mg (241.3 mg 400 mg PO BID 06/24/20 02/19/21 History magnesium) tablet omega 2-shi-lkp-fish oil 1,200 mg 1 cap PO QDL 06/24/20 02/19/21 History (144 mg-216 mg) capsule (Fish Oil) atorvastatin 10 mg tablet 10 mg PO HS 11/10/20 02/19/21 History buspirone 15 mg tablet 15 mg PO TID 11/10/20 02/19/21 History ibrutinib 280 mg tablet (Imbruvica) 280 mg PO QAM 11/10/20 02/19/21 History multivitamin 1 tab PO QDL 11/10/20 02/19/21 History omeprazole 40 mg capsule,delayed 40 mg PO QAM 11/10/20 02/19/21 History release ondansetron HCl 4 mg tablet 4 mg PO Q8H PRN 11/10/20 02/19/21 History oxybutynin chloride 10 mg 10 mg PO HS 11/10/20 02/19/21 History tablet,extended release 24 hr potassium chloride 10 mEq 10 meq PO BID 11/10/20 02/19/21 History capsule,extended release calcium carbonate 600 mg calcium 600 mg PO BID tab 12/08/20 02/19/21 History (1,500 mg) tablet (Calcium) cholecalciferol (vitamin D3) 25 1,000 unit PO QDL tab 12/08/20 02/19/21 History mcg (1,000 unit) tablet (Vitamin D3) ascorbic acid (vitamin C) 500 mg 500 g PO BID 12/31/20 02/19/21 History tablet (Vitamin C) ferrous sulfate 325 mg (65 mg 325 mg PO BID 12/31/20 02/19/21 History iron) tablet (FeroSul) vitamin B complex 1 tab PO QDL 12/31/20 02/19/21 History insulin glargine 100 unit/mL (3 26 unit SUBCUT HS #15 ml 01/04/21 02/19/21 Rx mL) subcutaneous pen (Basaglar KwikPen U-100 Insulin) ciprofloxacin HCl 500 mg tablet 500 mg PO BID #8 tab 02/21/21 Rx Past Med/Surg History Medical History (Updated 02/24/21 @ 03:41 by Maverick Alfaro MD) Acute GI bleeding Bilateral hydronephrosis Cataract Cervical cancer Diabetes Elevated bilirubin Hypertension Recurrent UTI Transaminitis Urgency incontinence Urinary tract infection Surgical History H/O: hysterectomy S/P appendectomy S/P cataract surgery both eyes S/P cholecystectomy Social History Smoking Status: Never smoker Second Hand Exposure: No; Hx Alcohol Use: No Hx Substance Use: No Preferred Language: Namibian Communication Ability: Effective Gang Bore Operator Required: No Beliefs That Will Affect Care: Buddhism marital status: Current Living Situation: Spouse current occupational status: retired current occupation: [id number] How many Children do You have: 2 Feels Safe at Home: Yes Safety Concerns: Feels Safe At This Time Childhood Exposure to Second-Hand Smoke: No Dental Care, Regularly: No Physical Activity Frequency: Does not Exercise Seatbelt Use: always Sunscreen Use: No (hardly in sun d/t medicine ) Assistive Devices: Glasses Review of Systems Review of Systems: The patient denies chest pain, palpitations, shortness of breath, dyspnea on exertion, lower extremity swelling, sore throat, vomiting, diarrhea , constipation, abdominal pain, pelvic pain, blood in urine or stool, dysuria, urinary frequency or urgency, memory loss, loss of consciousness, rash, imbalance, focal or generalized weakness, numbness or tingling in arms or legs, back or neck pain, or night sweats. The review of systems is otherwise negative other than for that already noted above, and at least 10 systems have been reviewed. Physical Exam Physical Exam: The patient is awake, alert and oriented 3, well developed and well nourished, normocephalic and atraumatic, lying in bed and in no acute distress. HEENT--PERRL, EOMI, mucous membranes and oropharynx dry. Neck--supple. No JVD. No bruits. Thyroid normal, trachea midline, no adenopathy. Heart--normal S1 and S2. No murmurs, rubs or gallops. Lungs--clear bilaterally, no respiratory distress, no accessory muscle use. Abdomen--normal bowel sounds and soft. Nontender. Nondistended, no hernias or masses, no organomegaly. Extremities--no cyanosis or clubbing. No edema. Dermatologic--normal skin turgor, normal color, no abnormal lymph nodes, no rash. Neurologic--cranial nerves II through XII grossly intact. Rheumatologic--normal range of motion. Psychiatric--normal affect. Results & Data Results & Data ([facility]) Vital Signs (Past 12 Hours) Vital Signs Temp Pulse Resp BP BP Pulse Ox 02/23/21 22:06 79 22 165/65 H 94 02/23/21 21:04 99.3 F 20 151/69 H 95 02/23/21 20:07 99.5 F 78 16 137/66 100 Laboratory Results Laboratory Results WBC 18.40 K/uL (4.8-10.8) H 02/23/21 20:58 RBC 4.10 M/uL (4.2-5.4) L 02/23/21 20:58 Hgb 12.8 g/dL (12.0-16.0) 02/23/21 20:58 Hct 38.2 % (37-47) 02/23/21 20:58 MCV 93.2 fL (80-100) 02/23/21 20:58 MCH 31.2 pg (25-34) 02/23/21 20:58 MCHC 33.5 g/dL (32-36) 02/23/21 20:58 RDW Std Deviation 48.0 fL (36.4-46.3) H 02/23/21 20:58 RDW Coeff of Matthew 13.9 % (11.5-14.5) 02/23/21 20:58 Plt Count 157 K/uL (130-400) 02/23/21 20:58 MPV 12.6 fL (7.4-10.4) H 02/23/21 20:58 Immature Gran % (Auto) 0.3 % 02/23/21 20:58 Neut % (Auto) 85.7 % 02/23/21 20:58 Lymph % (Auto) 9.1 % 02/23/21 20:58 Elliott % (Auto) 4.7 % 02/23/21 20:58 Eos % (Auto) 0.1 % 02/23/21 20:58 Baso % (Auto) 0.1 % 02/23/21 20:58 Neut # (Auto) 15.76 K/uL (1.4-6.5) H 02/23/21 20:58 Lymph # (Auto) 1.68 K/uL (1.2-3.4) 02/23/21 20:58 Elliott # (Auto) 0.87 K/uL (0.11-0.59) H 02/23/21 20:58 Eos # (Auto) 0.02 K/uL (0-0.5) 02/23/21 20:58 Baso # (Auto) 0.01 K/uL (0-0.2) 02/23/21 20:58 Immature Gran # (Auto) 0.06 K/uL (0.00-0.02) H 02/23/21 20:58 Sodium 136 mmol/L (136-145) 02/23/21 20:58 Potassium 4.0 mmol/L (3.5-5.1) 02/23/21 20:58 Chloride 106 mmol/L (98-107) 02/23/21 20:58 Carbon Dioxide 23 mmol/L (21-32) 02/23/21 20:58 Anion Gap 7.0 (3-11) 02/23/21 20:58 BUN 14 mg/dl (7-18) 02/23/21 20:58 Creatinine 1.07 mg/dl (0.6-1.2) 02/23/21 20:58 Est Cr Clr Drug Dosing 52.4 ml/min 02/23/21 20:58 Est GFR ( Amer) 57.6 ml/min 02/23/21 20:58 Est GFR (Non-Af Amer) 49.7 ml/min 02/23/21 20:58 BUN/Creatinine Ratio 13.5 (10-20) 02/23/21 20:58 Glucose 150 mg/dl (70-99) H 02/23/21 20:58 Lactate 1.0 mmol/L (0.4-2.0) 02/23/21 21:42 Calcium 9.3 mg/dl (8.5-10.1) 02/23/21 20:58 Total Bilirubin 1.8 mg/dl (0.2-1) H 02/23/21 20:58 AST 24 U/L (15-37) 02/23/21 20:58 ALT 68 U/L (12-78) 02/23/21 20:58 Alkaline Phosphatase 113 U/L (45-117) 02/23/21 20:58 Troponin I < 0.015 ng/ml (0-0.045) 02/23/21 21:50 Total Protein 7.4 gm/dl (6.4-8.2) 02/23/21 20:58 Albumin 3.4 gm/dl (3.4-5.0) 02/23/21 20:58 Globulin 4.0 gm/dl (2.5-4.0) 02/23/21 20:58 Albumin/Globulin Ratio 0.9 (0.9-2) 02/23/21 20:58 Urine Color Yellow 02/23/21 20:55 Urine Appearance Clear (Clear) 02/23/21 20:55 Urine pH 5.5 (4.5-7.5) 02/23/21 20:55 Ur Specific [place] 1.009 (1.000-1.030) 02/23/21 20:55 Urine Protein Negative (Negative) 02/23/21 20:55 Urine Glucose (UA) Negative (Negative) 02/23/21 20:55 Urine Ketones Negative (Negative) 02/23/21 20:55 Urine Blood Trace (Negative) H 02/23/21 20:55 Urine Nitrite Negative (Negative) 02/23/21 20:55 Urine Bilirubin Negative (Negative) 02/23/21 20:55 Urine Urobilinogen Negative (Negative) 02/23/21 20:55 Ur Leukocyte Esterase 1+ (Negative) H 02/23/21 20:55 Urine WBC (Auto) 10-30 /hpf (0-5) H 02/23/21 20:55 Urine RBC (Auto) 0-4 /hpf (0-4) 02/23/21 20:55 U Hyaline Cast (Auto) 0 /lpf (0-5) 02/23/21 20:55 U Epithel Cells (Auto) 5-10 /lpf (0-5) H 02/23/21 20:55 Urine Bacteria (Auto) Negative (Negative) 02/23/21 20:55 COVID-19 Eval Order Covid19 at [facility] 02/23/21 21:44 SARS-CoV-2 (PCR) POSITIVE (Negative) A* 02/23/21 21:44 Code Status & VTE Plan Code Status Full code VTE Prophylaxis Plan VTE Prophylaxis will be ordered: Yes PG Care Time/CCT Total # of Minutes Spent Total Time Spent with Patient: Total time spent is greater than 50% in coordination of care (as documented) at patient's floor/unit and/or counseling patient: Coding Level of Care Code INT OBSERVATION CARE 70M LVL 3 Diagnoses Acute UTI (urinary tract infection) N39.0 COVID-19 virus infection U07.1 Paroxysmal A-fib I48.0 Hypertension I10 Diabetes E11.9 Complicated UTI (urinary tract infection) N39.0 CLL (chronic lymphocytic leukemia) C91.90 Metastatic 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
[2021-02-24] MEDS ORDERED: GLUCAGON FOR INJ 1 MG VIAL SQ PRN (01:54)
[2021-02-24] MEDS ORDERED: DEXTROSE 50% 50 ML SYRINGE IV PRN (01:54)
[2021-02-24] MEDS ORDERED: CARBOHYDRATES FOR HYPOGLYCEMIA PO PRN (01:54)
[2021-02-24] MEDS ORDERED: GLUCOSE 10 TABS/TUBE PO PRN (01:54)
[2021-02-24] MEDS ORDERED: ONDANSETRON INJ 2 MG/ML 2 ML VIAL IV PRN (01:54)
[2021-02-24] MEDS ORDERED: GLUCOSE 40% GEL 15 GM TUBE PO PRN (01:54)
[2021-02-24] MEDS: APIXABAN 5 MG TABLET PO SCH ×3 (02:49→21:17)
[2021-02-24] MEDS: METOPROLOL TARTRATE 25 MG TAB PO SCH ×3 (02:49→21:17)
[2021-02-24 07:20] LABS: Albumin Globulin Ratio 0.8 (0.9-2); Albumin Level 2.6 gm/dl (3.4-5.0); BUN Creatinine Ratio 14.8 (10-20); Bilirubin,Total 1.5 mg/dl (0.2-1); Calcium 8.5 mg/dl (8.5-10.1); Creatinine Clr Calc Pharmacy 70.4 ml/min; Est GFR (African American) 87.1 ml/min; Est GFR (Non-African American) 75.1 ml/min; Globulin 3.4 gm/dl (2.5-4.0); Potassium 3.3 mmol/L (3.5-5.1)
[2021-02-24 07:21] LABS: Basophils # (auto) 0.01 K/uL (0-0.2); Basophils % (auto) 0.1 %; Eosinophils # (auto) 0.01 K/uL (0-0.5); Eosinophils % (auto) 0.1 %; Hematocrit (blood only) 34.1 % (37-47); Hemoglobin 11.4 g/dL (12.0-16.0); Immature Granulocytes # (auto) 0.04 K/uL (0.00-0.02); Immature Granulocytes % (auto) 0.4 %; Lymphocytes # (auto) 1.05 K/uL (1.2-3.4); Lymphocytes % (auto) 9.6 %; Mean Corpuscular Hemoglobin 30.8 pg (25-34); Mean Corpuscular Hgb Conc 33.4 g/dL (32-36); Mean Corpuscular Volume 92.2 fL (80-100); Mean Platelet Volume 12.4 fL (7.4-10.4); Monocytes # (auto) 0.43 K/uL (0.11-0.59); Monocytes % (auto) 3.9 %; Neutrophils # (auto) 9.43 K/uL (1.4-6.5); Neutrophils % (auto) 85.9 %; Platelet Count 107 K/uL (130-400); Platelet Estimate Decreased (Normal); RDW Standard Deviation 46.8 fL (36.4-46.3); White Blood Count 10.97 K/uL (4.8-10.8)
--- NOTE | 2021-02-24 08:16 | Hospitalist Progress Note ---
Date of Service February 24, 2021 Assessment & Plan (1) Acute UTI (urinary tract infection): Plan: Citrobacter freundii urinary tract infection/history of ESBL Proteus mirabilis UTI- Inpatient discharge notes report being discharged on ciprofloxacin, which the patient reports was then changed to nitrofurantoin as an outpatient Outpatient transition visit notes report the patient was discharged on cefuroxime and then changed to Cipro. Patient is extremely unclear about what really happened. Patient has resolution of her symptoms. Admit on ceftriaxone 2 g IV daily to treat the Citrobacter, as the ESBL Proteus on culture 02/19. Repeat urine analysis culture from 02/23 is less than 1000 colonies no report to follow (2) COVID-19 virus infection: Plan: Patient had a negative COVID-19 test on 02/19. She tested positive in the ED this evening on 02/23. Repeat testing on 02/24 with Jessica testing is negative She remains not hypoxic and not short of breath, and was attributing her generalized symptoms to a reaction to the second antibiotic that she was changed to. For now, the patient will be admitted to a negative pressure room, and follow symptoms closely. Of note, patient had a normal-appearing chest x-ray in the ED (3) Paroxysmal A-fib: Plan: Paroxysmal A. fib/hypertension- Continue amlodipine, Eliquis and metoprolol tartrate (4) Hypertension: Plan: See above (5) Diabetes: Plan: Hold standing order for NovoLog 6 units subcu 3 times daily Reduce glargine from 26 to 14 units subcu at bedtime due to anticipated decreased appetite Place on Accu-Cheks before meals and at bedtime with NovoLog coverage per scale (6) Complicated UTI (urinary tract infection): Plan: See above (7) CLL (chronic lymphocytic leukemia): Plan: Continue supportive treatments (8) Metastatic cancer to intra-abdominal lymph nodes: Plan: Continue supportive treatments Admission and Anticipated Discharge Date Admission Date: February 23, 2021 Subjective Patient is without distress. Initial presentation was dysuria and flank pain this is since resolved. She has no upper respiratory symptoms or complaints. Reportedly while she was in the hospital last time she had absolutely no family visitors. After discharge she went straight home. She did not have any exposure to anyone else besides her immediate family. And she currently is having no coughing or anything such as fever etc. In the afternoon her repeat Covid Jessica test was negative Review of Systems Review of Systems: Mild distress and fatigue no headache, no visual changes no speech or swallowing issues no chest pain, pressure or palpitations no shortness of breath, cough or wheezes no abdominal pain, nausea or vomiting, diarrhea or constipation no dysuria, hematuria or frequency no focal joint pain or swelling no back pain, CVA tenderness or radicular pain no bruising, bleeding or rashes no focal signs of weakness or numbness or altered sensation no complaints of anxiety or depression.. Physical Exam Physical Exam: The patient appeared well nourished and normally developed. Vital signs as documented. Head exam is normocephalic atraumatic Neck is without JVD, thyromegaly, or carotid bruits. Lungs are clear to auscultation, no focal loss of breath sounds Cardiac exam, Rhythm is regular.. No murmurs, rubs or gallops. Abdominal exam reveals normal bowel sounds, soft non tender, no masses Extremities are nonedematous and both pedal pulses are present Neurologic exam is alert and oriented, no focal loss of strength or sensation Skin is without bruises or rashes Psychologically is without concerns for anxiety or depression Results & Data Results & Data ([facility]) Vital Signs (Past 12 Hours) Vital Signs Temp Pulse Pulse Resp BP BP Pulse Ox 02/24/21 07:27 98.6 F 81 18 162/81 H 95 02/24/21 01:56 97.9 F 18 167/59 H 95 02/24/21 01:00 83 21 172/143 H 96 02/24/21 00:00 79 20 159/70 H 93 02/23/21 23:00 82 20 167/65 H 93 02/23/21 22:06 79 22 165/65 H 94 02/23/21 21:04 99.3 F 20 151/69 H 95 PG Care Time/CCT Total # of Minutes Spent Total Time Spent with Patient: Total time spent is greater than 50% in coordination of care (as documented) at patient's floor/unit and/or counseling patient: Coding Level of Care Code 03755 Subseq Hosp Care Lvl 2 Diagnoses Acute UTI (urinary tract infection) N39.0 COVID-19 virus infection U07.1 Paroxysmal A-fib I48.0 Hypertension I10 Diabetes E11.9 Complicated UTI (urinary tract infection) N39.0 CLL (chronic lymphocytic leukemia) C91.90 Metastatic 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
[2021-02-24] MEDS: amLODIPine BESYLATE 5 MG TAB PO SCH ×2 (08:50→21:19)
[2021-02-24] MEDS: ADVANCED PROBIOTIC 1250 MG CAPSULE PO SCH (08:51)
[2021-02-24] MEDS: MAGNESIUM OXIDE 400 MG TAB PO SCH ×2 (08:51→21:18)
[2021-02-24] MEDS: CALCIUM CARBONATE 1250MG TAB PO SCH ×2 (08:51→21:17)
[2021-02-24] MEDS: busPIRone 15 MG TAB PO SCH ×3 (08:51→21:17)
[2021-02-24] MEDS: PANTOprazole 40 MG TAB PO SCH (08:51)
[2021-02-24] MEDS ORDERED: POTASSIUM CHLORIDE 10 MEQ TABCR PO SCH (09:00)
[2021-02-24] MEDS: INSULIN ASPART 100 UNITS/ML 3 ML PEN SC SCH ×4 (09:00→21:50)
--- NOTE | 2021-02-24 09:03 | XRay Report ---
SINGLE VIEW CHEST CLINICAL HISTORY: Fever. FINDINGS: An AP, portable, upright chest radiograph is compared to study dated 10/06/2019 and correlate d with chest CT dated 01/20/2016. The heart is enlarged noting atherosclerotic calcification of the th oracic aorta. The pulmonary vasculature is noncongested. Emphysema and chronic interstitial thickenin g is similar to previous. There is bibasilar scarring/atelectasis. No airspace consolidation typical for pneumonia or large pleural effusion is identified. No pneumothorax is seen. The skeletal structur es are osteopenic. The bony thorax is grossly intact. IMPRESSION: Cardiomegaly and emphysema with no acute cardiopulmonary abnormality. ACT 112: Negative or not required by law. Electronically signed by: Reilly Mackey M.D. 02/24/2021 9:01 AM
[2021-02-24] MEDS: POTASSIUM CHLORIDE CRTAB 20 MEQ TABCR PO SCH ×2 (09:31→21:17)
[2021-02-24] MEDS: CHOLECALCIFEROL 1,000 UNITS 25 MCG TAB PO SCH (12:08)
[2021-02-24] MEDS ORDERED: OXYBUTYNIN CHLORIDE XL 5 MG TABCR PO SCH (21:00)
[2021-02-24] MEDS ORDERED: INSULIN GLARGINE SOLOSTAR 100 UNITS/ML 3 ML PEN SQ SCH (21:00)
[2021-02-24] MEDS ORDERED: ATORVASTATIN 10 MG TAB PO SCH (21:00)
[2021-02-24] MEDS ORDERED: cefTRIAXone SODIUM 2,000 MG in DEXTROSE 5% 50 ML IV SCH (22:00)
[2021-02-24 22:35] VITALS: TEMP 98.4
[2021-02-25 07:17] LABS: Basophils # (auto) 0.02 K/uL (0-0.2); Basophils % (auto) 0.3 %; Eosinophils # (auto) 0.11 K/uL (0-0.5); Eosinophils % (auto) 1.4 %; Hematocrit (blood only) 37.6 % (37-47); Hemoglobin 12.4 g/dL (12.0-16.0); Immature Granulocytes # (auto) 0.15 K/uL (0.00-0.02); Lymphocytes % (auto) 13.1 %; Mean Corpuscular Hemoglobin 31.2 pg (25-34); Mean Corpuscular Volume 94.5 fL (80-100); Mean Platelet Volume 12.3 fL (7.4-10.4); Monocytes # (auto) 0.69 K/uL (0.11-0.59); Neutrophils # (auto) 5.66 K/uL (1.4-6.5); Neutrophils % (auto) 74.2 %; Platelet Count 133 K/uL (130-400); RDW Coefficient of Variation 13.8 % (11.5-14.5); RDW Standard Deviation 47.8 fL (36.4-46.3); Red Blood Count 3.98 M/uL (4.2-5.4); White Blood Count 7.63 K/uL (4.8-10.8)
--- NOTE | 2021-02-25 07:35 | Electrocardiogram Report ---
Test Reason : Blood Pressure : / mmHG Vent. Rate : 080 BPM Atrial Rate : 080 BPM P-R Int : 194 ms QRS Dur : 084 ms QT Int : 354 ms P-R-T Axes : 070 018 035 degrees QTc Int : 408 ms Normal sinus rhythm Nonspecific ST abnormality When compared with ECG of 19-FEB-2021 15:59, Nonspecific T wave abnormality no longer evident in Anterior leads Confirmed by Angel Luis Ontiveros ([id number]) on 02/25/2021 7:35:15 AM Referred By: REFERRED SELF Confirmed By:Angel Luis Ontiveros
[2021-02-25 07:45] LABS: Albumin Level 3.1 gm/dl (3.4-5.0); BUN Creatinine Ratio 18.7 (10-20); Calcium 9.5 mg/dl (8.5-10.1); Creatinine Clr Calc Pharmacy 52.5 ml/min; Est GFR (Non-African American) 52.6 ml/min; Potassium 3.9 mmol/L (3.5-5.1)
[2021-02-25 07:47] LABS: Albumin Globulin Ratio 0.8 (0.9-2); Bilirubin,Total 1.3 mg/dl (0.2-1); Globulin 3.8 gm/dl (2.5-4.0); Total Protein 6.9 gm/dl (6.4-8.2)
[2021-02-25 07:50] VITALS: PULSE 75; O2SAT 95
[2021-02-25] MEDS: amLODIPine BESYLATE 5 MG TAB PO SCH (08:35)
[2021-02-25] MEDS: METOPROLOL TARTRATE 25 MG TAB PO SCH (08:35)
[2021-02-25] MEDS: MAGNESIUM OXIDE 400 MG TAB PO SCH (08:35)
[2021-02-25] MEDS: APIXABAN 5 MG TABLET PO SCH (08:36)
[2021-02-25] MEDS: CALCIUM CARBONATE 1250MG TAB PO SCH (08:36)
[2021-02-25] MEDS: POTASSIUM CHLORIDE CRTAB 20 MEQ TABCR PO SCH (08:36)
[2021-02-25] MEDS: busPIRone 15 MG TAB PO SCH ×2 (08:36→13:15)
[2021-02-25] MEDS: ADVANCED PROBIOTIC 1250 MG CAPSULE PO SCH (08:37)
[2021-02-25] MEDS: PANTOprazole 40 MG TAB PO SCH (08:37)
[2021-02-25] MEDS ORDERED: IBRUTINIB PO SCH (09:00)
[2021-02-25] MEDS: INSULIN ASPART 100 UNITS/ML 3 ML PEN SC SCH ×2 (09:21→12:57)
[2021-02-25] MEDS: CHOLECALCIFEROL 1,000 UNITS 25 MCG TAB PO SCH (13:14)
[2021-02-25 13:35] VITALS: BP 162/81
--- NOTE | 2021-02-25 15:40 | Discharge Summary ---
Date of Service February 25, 2021 Admission HPI Per Admitting Provider The patient is a 80-year-old female with a past medical history including acute pyelonephritis, paroxysmal atrial fibrillation, chronic pancreatitis, ESBL Proteus mirabilis UTI, peripheral neuropathy, anxiety, hypertension, diabetes mellitus, CLL, metastatic cancer to intra-abdominal lymph nodes and adverse drug reactions. She had been admitted to [facility] from 02/19-02/21 for a Citrobacter freundii UTI, for which she was discharged on a course of ciprofloxacin. She reports that she was changed to nitrofurantoin yesterday, and shortly thereafter developed the above symptoms. Principal Diagnosis uti poa false positive covid test Discharge Exam The patient appeared well Vital signs as documented. Lungs are clear to auscultation and appear unlabored Cardiac exam, Rhythm is regular.. No murmurs, rubs or gallops. Abdominal exam reveals normal bowel sounds, soft non tender, no masses Extremities are nonedematous and both pedal pulses are normal. Neurologic exam is alert and oriented, no focal loss of strength or sensation Skin is without bruises or rashes Psychologically is without concerns for anxiety or depression. Discharge Data Allergies Allergy/AdvReac Type Severity Reaction Status Date / Time nitrofurantoin Allergy Mild tachycardia Verified 02/19/21 11:39 aspirin Allergy Unknown INCREASES Verified 02/19/21 11:39 BLEEDING duloxetine AdvReac Severe SEVERE Verified 02/19/21 11:39 VOMITING caffeine AdvReac Intermediate racing Verified 02/19/21 11:39 heart Sulfa (Sulfonamide AdvReac Intermediate Tinnitis Verified 02/19/21 11:39 Antibiotics) acetaminophen [From Tylenol] AdvReac liver bleed Verified 02/19/21 11:39 lisinopril AdvReac cough, Verified 02/19/21 11:39 white "stuff" all over lungs Consultations 02/23/21 21:40 ED Decision to Admit Stat Hospital Course (1) Acute UTI (urinary tract infection): Citrobacter freundii urinary tract infection/history of ESBL Proteus mirabilis UTI- Inpatient discharge notes report being discharged on ciprofloxacin, which the patient reports was then changed to nitrofurantoin as an outpatient Outpatient transition visit notes report the patient was discharged on cefuroxime and then changed to Cipro. Patient is extremely unclear about what really happened. Patient has resolution of her symptoms. Repeat urine analysis culture from 02/23 is less than 1000 colonies no report to follow will send out on Cefdinir and pyridium (2) COVID-19 virus infection: Patient had a negative COVID-19 test on 02/19. She tested positive in the ED this evening on 02/23. Repeat testing on 02/24 and 02/25 with Cefied testing is negative She remains not hypoxic and not short of breath, and was attributing her generalized symptoms to a reaction to the second antibiotic that she was changed to. Of note, patient had a normal-appearing chest x-ray in the ED At this time it is felt the pt has a false positive covid test and not an active covid infection (3) Paroxysmal A-fib: Paroxysmal A. fib/hypertension- Continue amlodipine, Eliquis and metoprolol tartrate (4) Hypertension: (5) Diabetes: return to home diabetic management (6) Complicated UTI (urinary tract infection): (7) CLL (chronic lymphocytic leukemia): Continue supportive treatments, follow with oncology (8) Metastatic cancer to intra-abdominal lymph nodes: Continue supportive treatments Total Time Total Time Spent Total Time Spent (In Minutes): It required greater than 30 minutes to prepare this patient for discharge Discharge Plan Discharge Items Patient Disposition: Home - Self-Care Reason For Visit: UTI,WEAKNESS,DRUG REACTION Discharge Diagnosis: urinary tract infection present on admission COVID infection has been ruled out Activity: Resume your previous activity Non-emergency contact: Primary Care Provider and Urologist Call non-emergency contact if: your symptoms worsen and you have a fever Follow-up/Referrals: Keiht Hutchinson DO [Primary Care Provider] - 03/01/21 10:00 am (Please follow up with Dr. Hutchinson on 03/01/21 at 10:00 am. Please arrive to the office at 9:45 am for your appointment. If you are unable to keep this appointment, please call the office to reschedule at [phone].) Diet: Carb Consistent or DM2 Addtl Attending Provider Instructions: you do not have COVID infection you had 2 additional tests after the one in the ER was positive and both were negative suggesting the ER test was a false test. please do not take any of the previous antibiotics, please finish the New antibiotic( cefdinir ) and follow up with your primary care doctor this week as scheduled on 03/01/21 please have good hydration the additional medication used to help reduce bladder pain while we are treating you may make your urine orange Pending Studies at Discharge: Yes Stand-Alone Forms: My [facility], Smoking Cessation Medications and DC Order Prescriptions: New phenazopyridine [Pyridium] 100 mg tablet 100 mg PO BID Qty: 6 RF: 0 cefdinir 300 mg capsule 300 mg PO BID 5 Days Qty: 10 RF: 0 Continued cranberry-vitamin C-flaxseed Capsule 2 cap PO QDL Qty: 0 RF: 0 Basaglar KwikPen U-100 Insulin 100 unit/mL (3 mL) insulin pen 26 unit SUBCUT HS Qty: 15 RF: 3 amlodipine 5 mg tablet 5 mg PO BID RF: 0 flaxseed oil 1,000 mg Capsule 1,000 mg PO QDL Qty: 0 RF: 0 insulin aspart U-100 [Novolog U-100 Insulin aspart] 100 unit/mL solution 6 unit subcut TID RF: 0 garlic Capsule 500 mg PO QDL Qty: 0 RF: 0 Probiotic 3 billion cell Capsule 3,000 mmu cells PO QAM RF: 0 Glucosamine Chondroitin 550-30-1 mg Capsule 1 cap PO QDL RF: 0 magnesium oxide 400 mg (241.3 mg magnesium) tablet 400 mg PO BID RF: 0 omega 8-pfe-fnr-fish oil [Fish Oil] 1,200 (144-216) mg Capsule 1 cap PO QDL RF: 0 calcium carbonate [Calcium 600] 600 mg calcium (1,500 mg) tablet 600 mg PO BID RF: 0 cholecalciferol (vitamin D3) [Vitamin D3] 25 mcg (1,000 unit) tablet 1,000 unit PO QDL RF: 0 metoprolol tartrate 25 mg Tablet 25 mg PO BID Qty: 60 RF: 0 Eliquis 5 mg Tablet 5 mg PO BID Qty: 60 RF: 0 multivitamin Tablet 1 tab PO QDL RF: 0 potassium chloride 10 mEq Capsule, Extended Release 10 meq PO BID RF: 0 atorvastatin 10 mg tablet 10 mg PO HS RF: 0 oxybutynin chloride 10 mg tablet extended release 24hr 10 mg PO HS RF: 0 ondansetron HCl 4 mg tablet 4 mg PO Q8H PRN (Reason: Nausea) RF: 0 omeprazole 40 mg capsule,delayed release(DR/EC) 40 mg PO QAM RF: 0 buspirone 15 mg tablet 15 mg PO TID RF: 0 Imbruvica 280 mg tablet 280 mg PO QAM RF: 0 ascorbic acid (vitamin C) [Vitamin C] 500 mg tablet 500 g PO BID RF: 0 ferrous sulfate [FeroSul] 325 mg (65 mg iron) tablet 325 mg PO BID RF: 0 vitamin B complex Tablet 1 tab PO QDL RF: 0 Discontinued ciprofloxacin HCl 500 mg tablet 500 mg PO BID Qty: 8 RF: 0 Discharge Orders: Discharge Order (Routine); Ordered 02/25/21 Ordered By: Tien Stevenson Admission Data Admit Date/Time: 02/23/21 22:50 Attending Provider: Tien Stevenson Admit Provider: Maverick Alfaro Primary Care Provider: Keith Hutchinson Other Providers: Maverick Alfaro Other Interventions: Discharge Summary Assessment (RN) Last Done: 02/25/21 13:33 Coding Level of Care Code D/C DAY MANAGEMENT >30 MINS Diagnoses Acute UTI (urinary tract infection) N39.0 COVID-19 virus infection U07.1 Paroxysmal A-fib I48.0 Hypertension I10 Diabetes E11.9 Complicated UTI (urinary tract infection) N39.0 CLL (chronic lymphocytic leukemia) C91.90 Metastatic 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
== END 2021-02-25 15:07 | disposition home or self-care (01) ==
LOC: 2S 20:02 → ED 20:02 → SUATTDRO 22:50 → 2S 02-24 01:23
DX: E11.9 Type 2 diabetes mellitus without complications; Z79.899 Other long term (current) drug therapy; N39.0 Urinary tract infection, site not specified; Z88.2 Allergy status to sulfonamides; I48.0 Paroxysmal atrial fibrillation; I10 Essential (primary) hypertension; U07.1 COVID-19; Z88.8 Allergy status to other drugs, medicaments and biological substances; Z79.4 Long term (current) use of insulin; C91.90 Lymphoid leukemia, unspecified not having achieved remission; Z79.01 Long term (current) use of anticoagulants; C77.2 Secondary and unspecified malignant neoplasm of intra-abdominal lymph nodes; Z88.6 Allergy status to analgesic agent

== ENCOUNTER 2021-08-23 07:37 | Inpatient (IN) ==
--- NOTE | 2021-08-23 08:01 | Emergency Department Note ---
Impression & Plan Acute GI bleeding, FDC current use of anticoagulant, Thrombocytopenia ED Provider Note NAME: ILIANA CALDWELL AGE: 81 SEX: F : 1940 ARRIVES VIA: Walk-In INFORMANT: Patient ED PROVIDER(S): Mateo Rubio DO CHIEF COMPLAINT: Bright red blood per rectum HPI: Patient is a 81-year-old female who presents to the ER for bright red blood per rectum which started around and 13 August. She was admitted to [facility] and had a CT of her abdomen which was unremarkable per notes. PCP notes that she is due to have a colonoscopy this coming Friday. She denies any headache or change in vision. No chest pain or shortness of breath. She notes yesterday she started having bright red blood in combination with dark stools. She is taking iron. She has had about 4 bowel movements yesterday of bright red blood and additional 1-2 today. She notes she is having blood both when she wipes and throughout the stool and toilet bowl. ROS: See above HPI for pertinent positives & negatives. A total of 10 systems reviewed and were otherwise negative. PAST MEDICAL HISTORY:See Below PAST SURGICAL HISTORY:See Below FAMILY HISTORY:See Below SOCIAL HISTORY:See Below HOME MEDICATIONS:See Below ALLERGIES:See Below VITALS:See Below PHYSICAL EXAMINATION: GENERAL: Sitting up in bed, alert, well appearing, well nourished, no distress, non-toxic EYE EXAM: normal conjunctiva. PERRL and EOM's grossly intact. OROPHARYNX: no exudate, no erythema, lips, buccal mucosa, and tongue normal and mucous membranes are moist NECK: supple, no nuchal rigidity, no adenopathy, non-tender LUNGS: Clear to auscultation. Normal chest wall mechanics HEART: no murmurs, S1 normal and S2 normal ABDOMEN: abdomen soft, non-tender, normo-active bowel sounds, no masses, no rebound or guarding. RECTAL: Heme positive dark stool UPPER EXTREMITIES: upper extremities are grossly normal. LOWER EXTREMITIES: No pitting edema. NEURO EXAM: Normal sensorium, cranial nerves II-XII grossly intact, normal speech, no gross weakness of arms, no gross weakness of legs. MEDICAL DECISION MAKING: Patient is a 81-year-old female who presents the the ER for the above-stated complaint. Patient started having right red blood per rectum yesterday. IV was established blood work was obtained. Labs show mild leukopenia at 4000. No significant anemia. INR was unremarkable. BMP along with LFTs was unremarkable. T bili slightly up at 2. Troponin was negative. Patient rectally who is heme positive. Patient had a CT performed earlier this month for the same issue which was negative per PCP note although was performed at [facility]. With the bleeding and on Eliquis and history of A. fib did feel was prudent to watch her overnight. Discussed with the patient and updated the hospitalist. Triage Nursing notes reviewed. Limited review of prior medical records performed Vital Signs: reviewed and remarkable for HTN Differential diagnosis: Differential diagnoses includes but is not limited to gastritis, peptic ulcer disease, GERD, gallbladder disease, pancreatitis, small bowel obstruction, acute coronary syndrome, pericarditis, ischemic bowel, irritable bowel disease, irritable bowel syndrome, appendicitis, diverticulitis, malignancy, hernia, urinary tract infection, torsion, perforation, trauma, infectious. ER treatment provided: See below Diagnostics interpreted by me: ECG: Sinus rhythm rate of 71 Normal axis No PVCs QTC 404 Cardiac Monitoring: An order was placed for continuous cardiac monitoring. The monitor shows a rate of 70 with sinus rhythm. Laboratory studies: As stated above and show below. Imaging studies: See below Consultation(s): Discussed with hospitalist for further evaluation Procedures: none Critical Care: None Past Med/Surg History Medical History Acute GI bleeding Anxiety Bilateral hydronephrosis Cataract Cervical cancer Chronic pancreatitis CLL (chronic lymphocytic leukemia) Diabetes Elevated bilirubin History of cervical cancer Hypertension FDC current use of anticoagulant Metastatic cancer to intra-abdominal lymph nodes Paroxysmal A-fib Peripheral neuropathy Recurrent UTI Transaminitis Urgency incontinence Surgical History H/O: hysterectomy S/P appendectomy S/P cataract surgery both eyes S/P cholecystectomy Family History Mother Heart disease Father Lung disease Prostate cancer Sister COVID Arthritis Uncle Myocardial infarction Heart disease Aunt Myocardial infarction Denies family history of Ovarian cancer Breast cancer Colorectal cancer Social History Smoking Status: Never smoker Second Hand Exposure: No; Do You Dip or Chew Tobacco: No; Hx Alcohol Use: No Hx Substance Use: No Preferred Language: Yakut Communication Ability: Effective Paper Finisher Required: No Beliefs That Will Affect Care: None marital status: Current Living Situation: Spouse current occupational status: retired current occupation: [employer] How many Children do You have: 2 Feels Safe at Home: Yes Safety Concerns: Feels Safe At This Time Childhood Exposure to Second-Hand Smoke: No Dental Care, Regularly: No Physical Activity Frequency: Does not Exercise Seatbelt Use: always Sunscreen Use: No (hardly in sun d/t medicine ) Assistive Devices: Walker Assistive Devices Comment: patient states "I don't really use it" Allergies Allergies Allergy/AdvReac Type Severity Reaction Status Date / Time nut - unspecified Allergy Severe Swelling Verified 08/23/21 09:18 of Lip/Tongue/Throat nitrofurantoin Allergy Mild tachycardia Verified 08/23/21 09:18 aspirin Allergy Unknown INCREASES Verified 08/23/21 09:18 BLEEDING duloxetine AdvReac Severe SEVERE Verified 08/23/21 09:18 VOMITING caffeine AdvReac Intermediate racing Verified 08/23/21 09:18 heart Sulfa (Sulfonamide AdvReac Intermediate Tinnitis Verified 08/23/21 09:18 Antibiotics) acetaminophen [From Tylenol] AdvReac liver bleed Verified 08/23/21 09:18 lisinopril AdvReac cough, Verified 08/23/21 09:18 white "stuff" all over lungs Home Meds Home Medications Medication Instructions Recorded Confirmed amlodipine 5 mg tablet 5 mg PO BID 06/24/20 08/23/21 glucosamine sulf dipot 1 cap PO QDL 06/24/20 08/23/21 chlr,msm,chond 550 mg-C 30 mg-aleena 1 mg capsule (Glucosamine Chondroitin) magnesium oxide 400 mg (241.3 mg 400 mg PO BID 06/24/20 08/23/21 magnesium) tablet omega 1-lcm-pde-fish oil 1,200 mg 1 cap PO QDL 06/24/20 08/23/21 (144 mg-216 mg) capsule (Fish Oil) buspirone 15 mg tablet 15 mg PO TID 11/10/20 08/23/21 ibrutinib 280 mg tablet (Imbruvica) 280 mg PO QAM 11/10/20 08/23/21 multivitamin 1 tab PO QDL 11/10/20 08/23/21 omeprazole 40 mg capsule,delayed 40 mg PO QAM 11/10/20 08/23/21 release calcium carbonate 600 mg calcium 600 mg PO BID tab 12/08/20 08/23/21 (1,500 mg) tablet (Calcium) cholecalciferol (vitamin D3) 25 1,000 unit PO QDL tab 12/08/20 08/23/21 mcg (1,000 unit) tablet (Vitamin D3) vitamin B complex 1 tab PO QDL 12/31/20 08/23/21 mirabegron 50 mg tablet,extended 50 mg PO DAILY 06/12/21 08/23/21 release 24 hr (Myrbetriq) losartan 25 mg tablet 25 mg PO DAILY 07/19/21 08/23/21 garlic 100 mg tablet 0 mg PO DAILY 08/23/21 08/23/21 Previous Rx's Medication Instructions Recorded metoprolol tartrate 25 mg tablet 25 mg PO BID #60 tab 10/08/19 insulin glargine 100 unit/mL (3 26 unit SUBCUT HS #15 ml 01/04/21 mL) subcutaneous pen (Basaglar KwikPen U-100 Insulin) ferrous sulfate 325 mg (65 mg 325 mg PO BID #180 tab 03/12/21 iron) tablet (FeroSul) atorvastatin 10 mg tablet 10 mg PO HS #90 tab 03/26/21 lancets 28 gauge (Prodigy Lancets) #300 ea 04/23/21 insulin aspart U-100 100 unit/mL 6 unit SUBCUT TID #30 ml 06/12/21 subcutaneous solution (Novolog U-100 Insulin aspart) pen needle, diabetic 31 gauge x #100 ea 06/12/21 3/16" (BD Ultra-Fine Mini Pen Needle) ondansetron HCl 4 mg tablet 4 mg PO Q8H PRN #90 tab 06/18/21 methenamine hippurate 1 gram tablet 1 g PO BID #90 tab 06/28/21 potassium chloride 10 mEq 10 meq PO BID #180 cap 07/19/21 capsule,extended release ascorbic acid (vitamin C) 500 mg 500 g PO BID #180 tab 07/31/21 tablet (Vitamin C) apixaban 5 mg tablet (Eliquis) 5 mg PO BID #60 tab 08/22/21 Results & Data (ED) Vital Signs Vital Signs - 24 hr 08/23/21 07:42 08/23/21 08:19 08/23/21 09:29 Temperature 36.2 C L Temperature Source Temporal Artery Scan Pulse Rate 67 Pulse Rate [Apical] 66 67 Pulse Rhythm Regular Pulse Rhythm [Apical] Regular Regular Pulse Strength Normal Pulse Strength [Apical] Normal Respiratory Rate 20 18 18 Respiratory Effort / Characteristics Non-Labored Spontaneous Non-Labored Spontaneous Non-Labored Spontaneous Respiratory Depth Normal Normal Normal Respiratory Pattern Regular Regular Regular Blood Pressure 156/69 H Blood Pressure [Left Arm] 170/72 H 156/67 H Blood Pressure Mean 98 Blood Pressure Mean [Left Arm] 104 96 Blood Pressure Position Sitting Pulse Oximetry 97 96 96 Oxygen Delivery Method Room Air Room Air Room Air Sepsis Recent Fever Within 48 Hours No Sepsis New/Unexplained Change in Mental Status No Sepsis Action Taken by Nursing No Action Required Laboratory Data Result diagrams: 08/23/21 08:00 08/23/21 08:00 Lab Results 08/23/21 08/23/21 08/23/21 Range/Units 08:00 08:00 08:00 WBC 4.44 L (4.8-10.8) K/uL RBC 4.13 L (4.2-5.4) M/uL Hgb 13.1 (12.0-16.0) g/dL Hct 39.2 (37-47) % MCV 94.9 (80-100) fL MCH 31.7 (25-34) pg MCHC 33.4 (32-36) g/dL RDW Std Deviation 48.1 H (36.4-46.3) fL RDW Coeff of Matthew 13.9 (11.5-14.5) % Plt Count 108 L (130-400) K/uL MPV 11.6 H (7.4-10.4) fL Immature Gran % (Auto) 0.0 % Neut % (Auto) 49.0 % Lymph % (Auto) 33.6 % Monona % (Auto) 16.7 % Eos % (Auto) 0.5 % Baso % (Auto) 0.2 % Neut # (Auto) 2.18 (1.4-6.5) K/uL Lymph # (Auto) 1.49 (1.2-3.4) K/uL Monona # (Auto) 0.74 H (0.11-0.59) K/uL Eos # (Auto) 0.02 (0-0.5) K/uL Baso # (Auto) 0.01 (0-0.2) K/uL Immature Gran # (Auto) 0.00 (0.00-0.02) K/uL RBC Morphology Unremarkable PT 10.2 (9.0-12.0) Seconds INR 1.0 (0.9-1.1) APTT 23.1 (21.0-31.0) Seconds PTT Ratio 0.9 Sodium 140 (136-145) mmol/L Potassium 4.4 (3.5-5.1) mmol/L Chloride 105 (98-107) mmol/L Carbon Dioxide 30 (21-32) mmol/L Anion Gap 5 (3-11) BUN 23 (6-23) mg/dl Creatinine 0.94 (0.6-1.2) mg/dl Est Cr Clr Drug Dosing 54.3 ml/min Est GFR ( Amer) 66.9 ml/min Est GFR (Non-Af Amer) 57.7 ml/min BUN/Creatinine Ratio 24.5 H (10-20) Glucose 118 H (70-99(Fasting)) mg/dl Calcium 9.5 (8.5-10.1) mg/dl Total Bilirubin 2.0 H (0.2-1.0) mg/dl AST 15 (13-39) U/L ALT 11 (7-52) U/L Alkaline Phosphatase 67 (34-104) U/L Troponin I < 0.03 (0-0.04) ng/ml Total Protein 6.6 (6.0-8.3) gm/dl Albumin 4.2 (3.4-5.0) gm/dl Globulin 2.4 L (2.5-4.0) gm/dl Albumin/Globulin Ratio 1.8 (0.9-2) POC Stool Occult Blood (Negative) SARS-CoV-2, RNA, NAAT (NEGATIVE) Blood Type Antibody Screen 08/23/21 08/23/21 08/23/21 Range/Units 08:03 08:05 08:06 WBC (4.8-10.8) K/uL RBC (4.2-5.4) M/uL Hgb (12.0-16.0) g/dL Hct (37-47) % MCV (80-100) fL MCH (25-34) pg MCHC (32-36) g/dL RDW Std Deviation (36.4-46.3) fL RDW Coeff of Matthew (11.5-14.5) % Plt Count (130-400) K/uL MPV (7.4-10.4) fL Immature Gran % (Auto) % Neut % (Auto) % Lymph % (Auto) % Mon[place] % (Auto) % Eos % (Auto) % Baso % (Auto) % Neut # (Auto) (1.4-6.5) K/uL Lymph # (Auto) (1.2-3.4) K/uL Mon[place] # (Auto) (0.11-0.59) K/uL Eos # (Auto) (0-0.5) K/uL Baso # (Auto) (0-0.2) K/uL Immature Gran # (Auto) (0.00-0.02) K/uL RBC Morphology PT (9.0-12.0) Seconds INR (0.9-1.1) APTT (21.0-31.0) Seconds PTT Ratio Sodium (136-145) mmol/L Potassium (3.5-5.1) mmol/L Chloride (98-107) mmol/L Carbon Dioxide (21-32) mmol/L Anion Gap (3-11) BUN (6-23) mg/dl Creatinine (0.6-1.2) mg/dl Est Cr Clr Drug Dosing ml/min Est GFR ( Amer) ml/min Est GFR (Non-Af Amer) ml/min BUN/Creatinine Ratio (10-20) Glucose (70-99(Fasting)) mg/dl Calcium (8.5-10.1) mg/dl Total Bilirubin (0.2-1.0) mg/dl AST (13-39) U/L ALT (7-52) U/L Alkaline Phosphatase (34-104) U/L Troponin I (0-0.04) ng/ml Total Protein (6.0-8.3) gm/dl Albumin (3.4-5.0) gm/dl Globulin (2.5-4.0) gm/dl Albumin/Globulin Ratio (0.9-2) POC Stool Occult Blood Positive A (Negative) SARS-CoV-2, RNA, NAAT NEGATIVE (NEGATIVE) Blood Type AB Positive Antibody Screen NEGATIVE Administered Medications Insulin Aspart (Insulin Aspart Per Unit) 0 units SC ACHS NEIL Stop: 09/22/21 11:29 Last Admin: 08/23/21 12:17 Dose: Not Given Documented by: [id number] Discharge Plan Visit Data Chief Complaint: Rectal Bleed Stated Complaint: DARK RED RECTAL BLEEDING ED Provider: Mateo Rubio Discharge Problem: Acute GI bleeding, FDC current use of anticoagulant, Thrombocytopenia Discharge Instructions Interventions: ED Discharge Assessment Last Done: 08/23/21 11:14
[2021-08-23 08:20] LABS: Basophils # (auto) 0.01 K/uL (0-0.2); Basophils % (auto) 0.2 %; Eosinophils # (auto) 0.02 K/uL (0-0.5); Eosinophils % (auto) 0.5 %; Hematocrit (blood only) 39.2 % (37-47); Hemoglobin 13.1 g/dL (12.0-16.0); Lymphocytes # (auto) 1.49 K/uL (1.2-3.4); Lymphocytes % (auto) 33.6 %; Mean Corpuscular Hemoglobin 31.7 pg (25-34); Mean Corpuscular Hgb Conc 33.4 g/dL (32-36); Mean Corpuscular Volume 94.9 fL (80-100); Mean Platelet Volume 11.6 fL (7.4-10.4); Monocytes # (auto) 0.74 K/uL (0.11-0.59); Monocytes % (auto) 16.7 %; Neutrophils # (auto) 2.18 K/uL (1.4-6.5); Platelet Count 108 K/uL (130-400); RDW Coefficient of Variation 13.9 % (11.5-14.5); RDW Standard Deviation 48.1 fL (36.4-46.3); Red Blood Count 4.13 M/uL (4.2-5.4); White Blood Count 4.44 K/uL (4.8-10.8)
[2021-08-23 08:33] LABS: Partial Thromboplastin Ratio 0.9; Partial Thromboplastin Time 23.1 Seconds (21.0-31.0); Prothrombin Time 10.2 Seconds (9.0-12.0)
[2021-08-23 08:44] LABS: RBC Morphology Unremarkable
[2021-08-23 08:51] LABS: Troponin I < 0.03 ng/ml (0-0.04)
[2021-08-23 08:56] LABS: Alanine Aminotransferase 11 U/L (7-52); Albumin Globulin Ratio 1.8 (0.9-2); Albumin Level 4.2 gm/dl (3.4-5.0); Alkaline Phosphatase 67 U/L (34-104); Anion Gap 5 (3-11); Aspartate Aminotransferase 15 U/L (13-39); BUN Creatinine Ratio 24.5 (10-20); Blood Urea Nitrogen 23 mg/dl (6-23); Calcium 9.5 mg/dl (8.5-10.1); Carbon Dioxide 30 mmol/L (21-32); Chloride 105 mmol/L (98-107); Creatinine Clr Calc Pharmacy 54.3 ml/min; Est GFR (African American) 66.9 ml/min; Est GFR (Non-African American) 57.7 ml/min; Globulin 2.4 gm/dl (2.5-4.0); Glucose 118 mg/dl (70-99(Fasting)); Potassium 4.4 mmol/L (3.5-5.1); Sodium 140 mmol/L (136-145); Total Protein 6.6 gm/dl (6.0-8.3)
--- NOTE | 2021-08-23 11:02 | History & Physical Report ---
Date of Service August 23, 2021 Assessment & Plan (1) Bleeding per rectum: Plan: Actue on chronic blood reported as bright, with bowel movements and passage of small clots- site unspecified - heme positive reported - has had heme stools noting back to 2019 - Occurs with morning BM starts and stops - Follow stools while in house - Hold Xarelto - Clears - GI consult- appreciate evaluation - Does cause great deal of anxiety to the patient (2) History of cervical cancer: Plan: With mets to the abdominal lymphnodes (3) CLL (chronic lymphocytic leukemia): Plan: Follows with [facility] - Hold her Imbruvica- she has not brought this with her to the hospital- non formulary - Reported as in Remission - was some discussion with her oncologist and changing her Imbruvica related to bleeding risk with DOAC- patient was not interested (4) Diabetes: Plan: DMII on Basal insulin 26 units and aspart TID at home - Continue her equivalent basal insulin to 50% dose tonight for NPO - Continue sliding scale aspart insulin (5) Paroxysmal A-fib: Plan: Remains in NSR - rate controlled with- Metoprolol 25 mg PO BID - Hold Xarelto until GI eval (6) Urgency incontinence: Plan: Chronic- 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 Patient comes to the EMD today for complaints of blood on her stool, in the toilet, and toilet paper. This appears to be chronic in nature and normally follows with GI in [place]. Secondary to this bleeding she has been on and off her Xarelto because the bleeding "makes her very nervous". She had an GI interventional appointment what appears to be earlier in July and patient states that she got "sick" and the case was cancelled. She reports the sick as being "cold, tired and with nausea". Since that time she had blood in her stools on the Jul that she reported as blood in the toilet water, dark stool with blood on it and clots about the size of a dime noted. She has blood on the toilet paper that stops after 4-5 wipes with not clots and is bright. She was to have follow up with her GI doctor on Friday. She was discharged from [facility] on Jul she restarted her Xarelto and had her bleeding restart yesterday 08/22 and this morning 08/23. She endorses her bleeding only occurs in the morning and no further episodes throughout the day. She has not had any blood on her undergarments and no abdominal pain, dizziness, chest pain, or difficulty breathing. She is concerned that it will just not stop. She had CT scan of her abdomen performed at [facility] (report scanned in) that was interpreted as uncomplicated diverticulosis. Patient will be admitted to follow her symptoms, will consult GI for evaluation, will place on clears for now and hold her Xarelto. She last took her Xarelto 08/23/21 in morning prior to coming to the hospital. Patient COVID test on admission is: NEGATIVE Allergies Allergy/AdvReac Type Severity Reaction Status Date / Time nut - unspecified Allergy Severe Swelling Verified 08/23/21 09:18 of Lip/Tongue/Throat nitrofurantoin Allergy Mild tachycardia Verified 08/23/21 09:18 aspirin Allergy Unknown INCREASES Verified 08/23/21 09:18 BLEEDING duloxetine AdvReac Severe SEVERE Verified 08/23/21 09:18 VOMITING caffeine AdvReac Intermediate racing Verified 08/23/21 09:18 heart Sulfa (Sulfonamide AdvReac Intermediate Tinnitis Verified 08/23/21 09:18 Antibiotics) acetaminophen [From Tylenol] AdvReac liver bleed Verified 08/23/21 09:18 lisinopril AdvReac cough, Verified 08/23/21 09:18 white "stuff" all over lungs Home Medications Medication Instructions Recorded Confirmed Type metoprolol tartrate 25 mg tablet 25 mg PO BID #60 tab 10/08/19 08/23/21 Rx amlodipine 5 mg tablet 5 mg PO BID 06/24/20 08/23/21 History glucosamine sulf dipot 1 cap PO QDL 06/24/20 08/23/21 History chlr,msm,chond 550 mg-C 30 mg-aleena 1 mg capsule (Glucosamine Chondroitin) magnesium oxide 400 mg (241.3 mg 400 mg PO BID 06/24/20 08/23/21 History magnesium) tablet omega 8-cgm-mge-fish oil 1,200 mg 1 cap PO QDL 06/24/20 08/23/21 History (144 mg-216 mg) capsule (Fish Oil) buspirone 15 mg tablet 15 mg PO TID 11/10/20 08/23/21 History ibrutinib 280 mg tablet (Imbruvica) 280 mg PO QAM 11/10/20 08/23/21 History multivitamin 1 tab PO QDL 11/10/20 08/23/21 History omeprazole 40 mg capsule,delayed 40 mg PO QAM 11/10/20 08/23/21 History release calcium carbonate 600 mg calcium 600 mg PO BID tab 12/08/20 08/23/21 History (1,500 mg) tablet (Calcium) cholecalciferol (vitamin D3) 25 1,000 unit PO QDL tab 12/08/20 08/23/21 History mcg (1,000 unit) tablet (Vitamin D3) vitamin B complex 1 tab PO QDL 12/31/20 08/23/21 History insulin glargine 100 unit/mL (3 26 unit SUBCUT HS #15 ml 01/04/21 08/23/21 Rx mL) subcutaneous pen (Basaglar KwikPen U-100 Insulin) ferrous sulfate 325 mg (65 mg 325 mg PO BID #180 tab 03/12/21 08/23/21 Rx iron) tablet (FeroSul) atorvastatin 10 mg tablet 10 mg PO HS #90 tab 03/26/21 08/23/21 Rx lancets 28 gauge (Prodigy Lancets) #300 ea 04/23/21 08/23/21 Rx insulin aspart U-100 100 unit/mL 6 unit SUBCUT TID #30 ml 06/12/21 08/23/21 Rx subcutaneous solution (Novolog U-100 Insulin aspart) mirabegron 50 mg tablet,extended 50 mg PO DAILY 06/12/21 08/23/21 History release 24 hr (Myrbetriq) pen needle, diabetic 31 gauge x #100 ea 06/12/21 08/23/21 Rx 3/16" (BD Ultra-Fine Mini Pen Needle) ondansetron HCl 4 mg tablet 4 mg PO Q8H PRN #90 tab 06/18/21 08/23/21 Rx methenamine hippurate 1 gram tablet 1 g PO BID #90 tab 06/28/21 08/23/21 Rx losartan 25 mg tablet 25 mg PO DAILY 07/19/21 08/23/21 History potassium chloride 10 mEq 10 meq PO BID #180 cap 07/19/21 08/23/21 Rx capsule,extended release ascorbic acid (vitamin C) 500 mg 500 g PO BID #180 tab 07/31/21 08/23/21 Rx tablet (Vitamin C) apixaban 5 mg tablet (Eliquis) 5 mg PO BID #60 tab 08/22/21 08/23/21 Rx garlic 100 mg tablet 0 mg PO DAILY 08/23/21 08/23/21 History Past Med/Surg History Medical History Acute GI bleeding Anxiety Bilateral hydronephrosis Cataract Cervical cancer Chronic pancreatitis CLL (chronic lymphocytic leukemia) Diabetes Elevated bilirubin History of cervical cancer Hypertension group home current use of anticoagulant Metastatic cancer to intra-abdominal lymph nodes Paroxysmal A-fib Peripheral neuropathy Recurrent UTI Transaminitis Urgency incontinence Surgical History H/O: hysterectomy S/P appendectomy S/P cataract surgery both eyes S/P cholecystectomy Family History Mother Heart disease Father Lung disease Prostate cancer Sister COVID Arthritis Uncle Myocardial infarction Heart disease Aunt Myocardial infarction Denies family history of Ovarian cancer Breast cancer Colorectal cancer Social History Smoking Status: Unknown if ever smoked Second Hand Exposure: No; Do You Dip or Chew Tobacco: No; Hx Alcohol Use: No Hx Substance Use: No Preferred Language: Swedish Communication Ability: Effective Meat Dresser Required: No Beliefs That Will Affect Care: None marital status: Current Living Situation: Alone current occupational status: retired current occupation: [employer] How many Children do You have: 2 Feels Safe at Home: Yes Safety Concerns: Feels Safe At This Time Childhood Exposure to Second-Hand Smoke: No Dental Care, Regularly: No Physical Activity Frequency: Does not Exercise Seatbelt Use: always Sunscreen Use: No (hardly in sun d/t medicine ) Assistive Devices: Walker Assistive Devices Comment: patient states "I don't really use it" Review of Systems Review of Systems: REVIEW OF SYSTEMS: Constitutional: No fever, sweats or chills Eyes: No diplopia, no worsening or blurred vision ENT: normal hearing, no trouble swallowing Respiratory: No cough, sputum, dyspnea at rest or on exertion Cardiovascular: No chest pain, tightness or palpitations Abdomen: (+) blood and clots with passage of stool, No pain, nausea, vomiting, diarrhea or constipation Musculoskeletal: (+) chronic joint pains, calf pain, swelling Neurologic: No weakness, numbness/tingling, or balance problems Psychiatric: (+) anxiety, NO depression Skin: No rash or itch Physical Exam Physical Exam: PHYSICAL EXAM: General: awake, alert, no apparent distress Head: Normocephalic, atraumatic ENT: PERRL, EOMI, no pharyngeal exudate, mucous membranes moist Neuro: AAO x 3, speech clear and appropriate, strength intact bilaterally 5/5, sensation intact and equal all extremities and dermatomes, no pronator drift Chest: equal rise and fall of the chest, no accessory muscle use, no heaves or thrills, Clear to auscultation, on room air, Cardiac: Regular rate and rhythm, telemetry reviewed-sinus, skin warm dry, cap refill <3 seconds, peripheral pulses +2 no JVD, no murmur, trace lower extremity edema GI: NABS x 4 quadrants, soft, nontender to palpation, no rebound, guarding or tenderness : Spontaneously voiding, no pain, no CVA tenderness, incontinence Extremities: Normal inspection, no peripheral edema or erythema, calfs nontender to palpation Psych: Normal mood and affect Skin: bruises Results & Data Results & Data ([facility]) Vital Signs (Past 12 Hours) Vital Signs Temp Pulse Pulse Resp BP BP Pulse Ox 08/23/21 09:29 67 18 156/67 H 96 08/23/21 08:19 66 18 170/72 H 96 08/23/21 07:42 36.2 C L 67 20 156/69 H 97 Laboratory Results Abnormal lab results 08/23/21 08/23/21 08/23/21 Range/Units 08:00 08:00 08:06 WBC 4.44 L (4.8-10.8) K/uL RBC 4.13 L (4.2-5.4) M/uL RDW Std Deviation 48.1 H (36.4-46.3) fL Plt Count 108 L (130-400) K/uL MPV 11.6 H (7.4-10.4) fL [place] # (Auto) 0.74 H (0.11-0.59) K/uL BUN/Creatinine Ratio 24.5 H (10-20) Glucose 118 H (70-99(Fasting)) mg/dl Total Bilirubin 2.0 H (0.2-1.0) mg/dl Globulin 2.4 L (2.5-4.0) gm/dl POC Stool Occult Blood Positive A (Negative) Diagnostic Findings none performed on admission Medications Administered Home Medications metoprolol tartrate 25 mg tablet 25 mg PO BID #60 tab 10/08/19 [Rx Confirmed 08/23/21] amlodipine 5 mg tablet 5 mg PO BID 06/24/20 [History Confirmed 08/23/21] glucosamine sulf dipot chlr,msm,chond 550 mg-C 30 mg-aleena 1 mg capsule (Glucosamine Chondroitin) 1 cap PO QDL 06/24/20 [History Confirmed 08/23/21] magnesium oxide 400 mg (241.3 mg magnesium) tablet 400 mg PO BID 06/24/20 [History Confirmed 08/23/21] omega 7-nig-gbi-fish oil 1,200 mg (144 mg-216 mg) capsule (Fish Oil) 1 cap PO QDL 06/24/20 [History Confirmed 08/23/21] buspirone 15 mg tablet 15 mg PO TID 11/10/20 [History Confirmed 08/23/21] ibrutinib 280 mg tablet (Imbruvica) 280 mg PO QAM 11/10/20 [History Confirmed 08/23/21] multivitamin 1 tab PO QDL 11/10/20 [History Confirmed 08/23/21] omeprazole 40 mg capsule,delayed release 40 mg PO QAM 11/10/20 [History Confirmed 08/23/21] calcium carbonate 600 mg calcium (1,500 mg) tablet (Calcium) 600 mg PO BID tab 12/08/20 [History Confirmed 08/23/21] cholecalciferol (vitamin D3) 25 mcg (1,000 unit) tablet (Vitamin D3) 1,000 unit PO QDL tab 12/08/20 [History Confirmed 08/23/21] vitamin B complex 1 tab PO QDL 12/31/20 [History Confirmed 08/23/21] insulin glargine 100 unit/mL (3 mL) subcutaneous pen (Basaglar KwikPen U-100 Insulin) 26 unit SUBCUT HS #15 ml 01/04/21 [Rx Confirmed 08/23/21] ferrous sulfate 325 mg (65 mg iron) tablet (FeroSul) 325 mg PO BID #180 tab 03/12/21 [Rx Confirmed 08/23/21] atorvastatin 10 mg tablet 10 mg PO HS #90 tab 03/26/21 [Rx Confirmed 08/23/21] lancets 28 gauge (Prodigy Lancets) #300 ea 04/23/21 [Rx Confirmed 08/23/21] insulin aspart U-100 100 unit/mL subcutaneous solution (Novolog U-100 Insulin aspart) 6 unit SUBCUT TID #30 ml 06/12/21 [Rx Confirmed 08/23/21] mirabegron 50 mg tablet,extended release 24 hr (Myrbetriq) 50 mg PO DAILY 06/12/21 [History Confirmed 08/23/21] pen needle, diabetic 31 gauge x 3/16" (BD Ultra-Fine Mini Pen Needle) #100 ea 06/12/21 [Rx Confirmed 08/23/21] ondansetron HCl 4 mg tablet 4 mg PO Q8H PRN #90 tab 06/18/21 [Rx Confirmed 08/23/21] methenamine hippurate 1 gram tablet 1 g PO BID #90 tab 06/28/21 [Rx Confirmed 08/23/21] losartan 25 mg tablet 25 mg PO DAILY 07/19/21 [History Confirmed 08/23/21] potassium chloride 10 mEq capsule,extended release 10 meq PO BID #180 cap 07/19/21 [Rx Confirmed 08/23/21] ascorbic acid (vitamin C) 500 mg tablet (Vitamin C) 500 g PO BID #180 tab 07/31/21 [Rx Confirmed 08/23/21] apixaban 5 mg tablet (Eliquis) 5 mg PO BID #60 tab 08/22/21 [Rx Confirmed 08/23/21] garlic 100 mg tablet 0 mg PO DAILY 08/23/21 [History Confirmed 08/23/21] Code Status & VTE Plan Code Status CODE: FULL VTE: SCDs, ambulation Supervising Physician Co-Signing Physician Notes Attending Attestation & Admission Note: Pt seen/examined, chart reviewed, care plan d/w CHIARA Schilling. I agree with the chavira components of his documentation. 81yo female with h/o cervical cancer who presents with concern of ongoing BRBPR. Hospitalized at [facility] earlier this month for 24 hours for same issue. No endoscopic eval done during that visit. Bleeding is painless; denies abd pain or rectal pain. Bleeding is present with wiping. CT a/p in the recent past with left-sided diverticular disease. PMH/PSH/allergies/meds/sochx/famhx - reviewed VSS, no fever gen - sitting in chair, NAD; reports blood per rectum just prior to my visit skin - no pallor neck - no JVD heart - RRR, s1 s2 lungs - CTA b/l abd - soft NT ND BS+ ext - no edema GI consult note reviewed labs reviewed; stable H/H EKG - NSR A/P: 1. BRBPR 2. diverticular disease 3. suspected external hemorrhoid per GI 4. h/o cervical cancer 5. chronic anticoagulation use for PAF 6. leukopenia, thrombocytopenia Hold eliquis Start anusol cream; dose now, then TID starting tomorrow; perform x 1 week Bleeding could be diverticular but less likely H/H tonight, then again in am Check B12, folate 2nd to #6 above NPO after MN just in case bleeding worsens and flex sig or other evaluation is needed urgently Kannan Garcia MD PG Care Time/CCT Total # of Minutes Spent Total Time Spent with Patient: Total time spent is greater than 50% in coordination of care (as documented) at patient's floor/unit and/or counseling patient: Coding Level of Care Code 16960 Initial Inpt Care Lvl 2 Diagnoses Bleeding per rectum K62.5 History of cervical cancer Z85.41 Paroxysmal A-fib I48.0 Urgency incontinence N39.41 Bilateral hydronephrosis N13.30 CLL (chronic lymphocytic leukemia) C91.90 Diabetes E11.9
[2021-08-23] MEDS ORDERED: DEXTROSE 50% 50 ML SYRINGE IV PRN (11:16)
[2021-08-23] MEDS ORDERED: GLUCOSE 10 TABS/TUBE PO PRN (11:16)
[2021-08-23] MEDS ORDERED: ACETAMINOPHEN 325 MG TAB PO PRN (11:16)
[2021-08-23] MEDS ORDERED: GLUCOSE 40% GEL 15 GM TUBE PO PRN (11:16)
[2021-08-23] MEDS ORDERED: CARBOHYDRATES FOR HYPOGLYCEMIA PO PRN (11:16)
[2021-08-23] MEDS ORDERED: GLUCAGON FOR INJ 1 MG VIAL SQ PRN (11:16)
[2021-08-23] MEDS ORDERED: ONDANSETRON 4 MG OD TAB PO PRN (11:22)
--- NOTE | 2021-08-23 11:29 | Electrocardiogram Report ---
Test Reason : Blood Pressure : / mmHG Vent. Rate : 071 BPM Atrial Rate : 071 BPM P-R Int : 214 ms QRS Dur : 090 ms QT Int : 372 ms P-R-T Axes : 079 022 051 degrees QTc Int : 404 ms Poor data quality, interpretation may be adversely affected Sinus rhythm with 1st degree A-V block Otherwise normal ECG When compared with ECG of 23-FEB-2021 21:58, No significant change was found Confirmed by Ozzy Olsen ([id number]) on 08/23/2021 11:29:34 AM Referred By: Confirmed By:David Olsen
[2021-08-23] MEDS: INSULIN ASPART PER UNIT SC SCH ×3 (12:17→21:29)
[2021-08-23] MEDS: CHOLECALCIFEROL 1,000 UNITS 25 MCG TAB PO SCH (13:26)
[2021-08-23] MEDS: busPIRone 15 MG TAB PO SCH ×2 (13:26→22:34)
--- NOTE | 2021-08-23 15:39 | Gastrointestinal Consultation ---
Date of Consultation August 23, 2021 Assessment & Plan (1) Bleeding per rectum: She is passing bright red blood rectally, w/o a drop in Hb or BUN and has a visible hemorrhoid on exam, with a small amt of bright red blood on return on the digital exam - but the rectal vault was not full of blood. She describes this as "dripping of blood into the toilet." These symptoms and her exam/labs are very consistent with hemorrhoidal bleeding. She is set up with her regular GI, Dr. Lala. We suggest that she follow up with that group as previously scheduled on this coming Friday, to arrange colonoscopy. She tells us that she that she would like to have him complete her next colonoscopy. Supervising Physician Co-Signing Physician Notes Attending attestation I have seen, examined this patient, and agree with the findings and above by our mid-level provider CHIARA Venegas, with the following additions: Painless rectal bleed without anemia and or hemodynamic changes. Desires colon by primary Gastroenterogist supportive care if has anemia and or continued bleeding will eval for inpt colonoscopy History of Present Illness Reason for Consultation: Blood, clots in BMs Requesting Physician: Dr. Alcantar Attending Physician: Kannan Garcia History of Present Illness Ms. Lisa Payne is a 81 yr old female pt of Dr. Oconnell with a hx of insulin dependent DM, diabetic neuropathy, HTN, DM, UTI, COVID 05/19 CLL on Imbruvica po daily, A-fib on Eliquis (records say Xeralto - but pt says was recently changed to Eliquis). She has had 3 episodes of bright red rectal bleeding in since Aug 12 (stayed overnight at [facility]). She has a GI f/u appt set up for FridayAug 27 with a PA-C in Dr. Lala's office and per pt she says that she will likely be set up for colonoscopy. She believes her most recent colonoscopy a few yrs ago. She has a known hx of hemorrhoids, being told that in at that time of her child's in 1965. She passed one formed brown/green BM with bright red blood and clots passed into the toilet. There was blood on the toilet paper as well. After arriving today, she urinated and noticed bright red blood on the toilet paper with wiping. She was concerned about the bleeding, so presented to [facility] ED - unsure if she should wait until her gastro appt Friday. She does not have any N/V abdominal pain - just a little cramping. She does feel "weak," unsure how long. Not sleeping well. No CP. Has occasional palpitations but has a hx of A-fib. On exam, she is hemodynamically stable. She is non tender. There are hemorrhoids present and a small amt of bright red blood was on present on return of digital rectal exam. Allergies Allergy/AdvReac Type Severity Reaction Status Date / Time nut - unspecified Allergy Severe Swelling Verified 08/23/21 09:18 of Lip/Tongue/Throat nitrofurantoin Allergy Mild tachycardia Verified 08/23/21 09:18 aspirin Allergy Unknown INCREASES Verified 08/23/21 09:18 BLEEDING duloxetine AdvReac Severe SEVERE Verified 08/23/21 09:18 VOMITING caffeine AdvReac Intermediate racing Verified 08/23/21 09:18 heart Sulfa (Sulfonamide AdvReac Intermediate Tinnitis Verified 08/23/21 09:18 Antibiotics) acetaminophen [From Tylenol] AdvReac liver bleed Verified 08/23/21 09:18 lisinopril AdvReac cough, Verified 08/23/21 09:18 white "stuff" all over lungs Home Medications Medication Instructions Recorded Confirmed Type metoprolol tartrate 25 mg tablet 25 mg PO BID #60 tab 10/08/19 08/23/21 Rx amlodipine 5 mg tablet 5 mg PO BID 06/24/20 08/23/21 History glucosamine sulf dipot 1 cap PO QDL 06/24/20 08/23/21 History chlr,msm,chond 550 mg-C 30 mg-aleena 1 mg capsule (Glucosamine Chondroitin) magnesium oxide 400 mg (241.3 mg 400 mg PO BID 06/24/20 08/23/21 History magnesium) tablet omega 1-apn-xyk-fish oil 1,200 mg 1 cap PO QDL 06/24/20 08/23/21 History (144 mg-216 mg) capsule (Fish Oil) buspirone 15 mg tablet 15 mg PO TID 11/10/20 08/23/21 History ibrutinib 280 mg tablet (Imbruvica) 280 mg PO QAM 11/10/20 08/23/21 History multivitamin 1 tab PO QDL 11/10/20 08/23/21 History omeprazole 40 mg capsule,delayed 40 mg PO QAM 11/10/20 08/23/21 History release calcium carbonate 600 mg calcium 600 mg PO BID tab 12/08/20 08/23/21 History (1,500 mg) tablet (Calcium) cholecalciferol (vitamin D3) 25 1,000 unit PO QDL tab 12/08/20 08/23/21 History mcg (1,000 unit) tablet (Vitamin D3) vitamin B complex 1 tab PO QDL 12/31/20 08/23/21 History insulin glargine 100 unit/mL (3 26 unit SUBCUT HS #15 ml 01/04/21 08/23/21 Rx mL) subcutaneous pen (Basaglar KwikPen U-100 Insulin) ferrous sulfate 325 mg (65 mg 325 mg PO BID #180 tab 03/12/21 08/23/21 Rx iron) tablet (FeroSul) atorvastatin 10 mg tablet 10 mg PO HS #90 tab 03/26/21 08/23/21 Rx lancets 28 gauge (Prodigy Lancets) #300 ea 04/23/21 08/23/21 Rx insulin aspart U-100 100 unit/mL 6 unit SUBCUT TID #30 ml 06/12/21 08/23/21 Rx subcutaneous solution (Novolog U-100 Insulin aspart) mirabegron 50 mg tablet,extended 50 mg PO DAILY 06/12/21 08/23/21 History release 24 hr (Myrbetriq) pen needle, diabetic 31 gauge x #100 ea 06/12/21 08/23/21 Rx 3/16" (BD Ultra-Fine Mini Pen Needle) ondansetron HCl 4 mg tablet 4 mg PO Q8H PRN #90 tab 06/18/21 08/23/21 Rx methenamine hippurate 1 gram tablet 1 g PO BID #90 tab 06/28/21 08/23/21 Rx losartan 25 mg tablet 25 mg PO DAILY 07/19/21 08/23/21 History potassium chloride 10 mEq 10 meq PO BID #180 cap 07/19/21 08/23/21 Rx capsule,extended release ascorbic acid (vitamin C) 500 mg 500 g PO BID #180 tab 07/31/21 08/23/21 Rx tablet (Vitamin C) apixaban 5 mg tablet (Eliquis) 5 mg PO BID #60 tab 08/22/21 08/23/21 Rx garlic 100 mg tablet 0 mg PO DAILY 08/23/21 08/23/21 History Patient History Medical History Acute GI bleeding Anxiety Bilateral hydronephrosis Cataract Cervical cancer Chronic pancreatitis CLL (chronic lymphocytic leukemia) Diabetes Elevated bilirubin 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 Metastatic cancer to intra-abdominal lymph nodes Paroxysmal A-fib Peripheral neuropathy Recurrent UTI Transaminitis Urgency incontinence Surgical History H/O: hysterectomy S/P appendectomy S/P cataract surgery both eyes S/P cholecystectomy Family History Mother Heart disease Father Lung disease Prostate cancer Sister COVID Arthritis Uncle Myocardial infarction Heart disease Aunt Myocardial infarction Denies family history of Ovarian cancer Breast cancer Colorectal cancer Social History Smoking Status: Unknown if ever smoked Second Hand Exposure: No; Do You Dip or Chew Tobacco: No; Hx Alcohol Use: No Hx Substance Use: No Preferred Language: Greenlandic Communication Ability: Effective Rn Hospice Required: No Beliefs That Will Affect Care: None marital status: Current Living Situation: Alone current occupational status: retired current occupation: [employer] How many Children do You have: 2 Feels Safe at Home: Yes Safety Concerns: Feels Safe At This Time Childhood Exposure to Second-Hand Smoke: No Dental Care, Regularly: No Physical Activity Frequency: Does not Exercise Seatbelt Use: always Sunscreen Use: No (hardly in sun d/t medicine ) Assistive Devices: Walker Assistive Devices Comment: patient states "I don't really use it" Review of Systems Review of Systems: ROS: Gen: + weakness, + lost 5 lbs in the last month No fevers Eyes: No eye redness, or pain, no recent vision changes Resp: No SOB, no cough Cardio: Occasional irregular heart beats. No CP GI: As per HPI, otherwise (-) : Denies pain on urination Skin: No jaundice, itching or new rashes Physical Exam Constitutional: well developed and cooperative Eyes: PERRL, conjunctivae normal, anicteric sclerae Respiratory: normal respiratory effort, lungs clear to auscultation Cardiovascular: RRR, no murmur, no edema Gastrointestinal (Abdomen): normal bowel sounds, soft, nontender, no hepatosplenomegaly Skin: no rashes, warm and dry normal turgor Neurologic: PERRL, EOMI, accommodation nl, no face palsy, no dysarthria awake; not confused Psychiatric: A+Ox3, euthymic affect Orientation: cooperative Eye Contact: good eye contact Affect: + anxious affect Results & Data ([facility]) Vital Signs (Past 12 Hours) Vital Signs Temp Pulse Pulse Resp BP BP Pulse Ox 08/23/21 09:29 67 18 156/67 H 96 08/23/21 08:19 66 18 170/72 H 96 08/23/21 07:42 36.2 C L 67 20 156/69 H 97 Laboratory Results WBC 4.4, Hb 13, Hct 39, Plts 108, INR 1.0, Na 140, K 4.4, Cl 105, CO2 30, Bun 5, Cr 23, glucose 121. Diagnostic Findings None
[2021-08-23] MEDS ORDERED: HYDROCORTISONE HC 2.5% CRM 30GM TUBE EXT ONE (21:08)
[2021-08-23] MEDS: ONDANSETRON INJ 2 MG/ML 2 ML VIAL IV PRN (21:23)
[2021-08-23 22:02] LABS: Hematocrit (blood only) 38.5 % (37-47); Hemoglobin 12.6 g/dL (12.0-16.0)
[2021-08-23] MEDS: METHENAMINE HIPPURATE 1 GM TAB PO SCH (22:33)
[2021-08-23] MEDS: CALCIUM 600MG + VIT D 400 IU TAB PO SCH (22:33)
[2021-08-23] MEDS: METOPROLOL TARTRATE 25 MG TAB PO SCH (22:33)
[2021-08-23] MEDS: ATORVASTATIN 10 MG TAB PO SCH (22:34)
[2021-08-23] MEDS: amLODIPine BESYLATE 5 MG TAB PO SCH (22:34)
[2021-08-23] MEDS: INSULIN GLARGINE SOLOSTAR 100 UNITS/ML 3 ML PEN SQ SCH (22:36)
[2021-08-24 06:54] LABS: Hematocrit (blood only) 37.3 % (37-47); Hemoglobin 12.6 g/dL (12.0-16.0); Mean Corpuscular Hemoglobin 31.8 pg (25-34); Mean Corpuscular Hgb Conc 33.8 g/dL (32-36); Mean Corpuscular Volume 94.2 fL (80-100); Mean Platelet Volume 12.1 fL (7.4-10.4); Platelet Count 118 K/uL (130-400); RDW Coefficient of Variation 14.2 % (11.5-14.5); Red Blood Count 3.96 M/uL (4.2-5.4); White Blood Count 3.25 K/uL (4.8-10.8)
[2021-08-24 07:14] LABS: Basophils # (auto) 0.01 K/uL (0-0.2); Basophils % (auto) 0.3 %; Eosinophils # (auto) 0.02 K/uL (0-0.5); Eosinophils % (auto) 0.6 %; Lymphocytes % (auto) 43.1 %; Monocytes # (auto) 0.44 K/uL (0.11-0.59); Monocytes % (auto) 13.5 %; Neutrophils # (auto) 1.38 K/uL (1.4-6.5); Neutrophils % (auto) 42.5 %
[2021-08-24 07:24] LABS: BUN Creatinine Ratio 17.7 (10-20); Calcium 8.8 mg/dl (8.5-10.1); Creatinine Clr Calc Pharmacy 53.1 ml/min; Est GFR (African American) 65.2 ml/min; Est GFR (Non-African American) 56.2 ml/min; Potassium 3.8 mmol/L (3.5-5.1)
[2021-08-24 07:39] LABS: Folate (Folic Acid) > 22.30 ng/ml (>5.38)
[2021-08-24 07:40] LABS: Vitamin B12 1018 pg/ml (180-914)
[2021-08-24] MEDS: ONDANSETRON INJ 2 MG/ML 2 ML VIAL IV PRN (07:58)
[2021-08-24] MEDS: amLODIPine BESYLATE 5 MG TAB PO SCH ×2 (08:43→21:53)
[2021-08-24] MEDS: CALCIUM 600MG + VIT D 400 IU TAB PO SCH ×2 (08:43→21:55)
[2021-08-24] MEDS: HYDROCORTISONE HC 2.5% CRM 30GM TUBE EXT SCH ×3 (08:43→21:55)
[2021-08-24] MEDS: busPIRone 15 MG TAB PO SCH ×3 (08:43→21:54)
[2021-08-24] MEDS: METOPROLOL TARTRATE 25 MG TAB PO SCH ×2 (08:44→21:59)
[2021-08-24] MEDS: METHENAMINE HIPPURATE 1 GM TAB PO SCH ×2 (08:44→22:28)
[2021-08-24] MEDS: MIRABEGRON ER 25 MG TAB PO SCH (08:45)
[2021-08-24] MEDS ORDERED: LOSARTAN POTASSIUM 25 MG TAB PO SCH (09:00)
[2021-08-24] MEDS ORDERED: SODIUM CHLORIDE 0.9% 1000ML 1,000 ML IV ONE (10:57)
[2021-08-24] MEDS: INSULIN ASPART PER UNIT SC SCH ×4 (11:01→21:56)
[2021-08-24] MEDS: CHOLECALCIFEROL 1,000 UNITS 25 MCG TAB PO SCH (11:03)
--- NOTE | 2021-08-24 12:04 | Electrocardiogram Report ---
Test Reason : Blood Pressure : / mmHG Vent. Rate : 073 BPM Atrial Rate : 073 BPM P-R Int : 202 ms QRS Dur : 086 ms QT Int : 404 ms P-R-T Axes : 070 030 060 degrees QTc Int : 445 ms Normal sinus rhythm Nonspecific T wave abnormality Abnormal ECG When compared with ECG of 23-AUG-2021 07:58, Nonspecific T wave abnormality now evident in Anterior leads Confirmed by Ozzy Olsen ([id number]) on 08/24/2021 12:04:09 PM Referred By: REFERRED SELF Confirmed By:David Olsen
[2021-08-24] MEDS ORDERED: SODIUM CHLORIDE 0.9% 1000ML 500 ML IV ONE (14:05)
[2021-08-24] MEDS: IMBRUVICA SCH (15:24)
[2021-08-24] MEDS ORDERED: OPTIRAY 320 125ml IV ONE (16:18)
--- NOTE | 2021-08-24 16:22 | CT Scan Report ---
CT OF THE HEAD WITHOUT CONTRAST CLINICAL HISTORY: Left arm numbness. Headaches. COMPARISON STUDY: Head CT December 11, 2015. TECHNIQUE: Helical axial images of the head were obtained without IV contrast. Automated exposure con trol was utilized for the study. A dose lowering technique was utilized adhering to the principles o f ALARA. FINDINGS: No acute intracranial hemorrhage, midline shift or mass effect is present. White matter hyp odensities favor small vessel disease. The ventricular system is unremarkable. The basal cisterns are patent. No extra-axial collections are present. There are no findings to suggest acute dural sinus t hrombosis or acute territorial infarct. No significant calvarial abnormalities are present. Visualize d portions of the sinuses and mastoid air cells are clear. IMPRESSION: No acute intracranial findings. ACT 112: Negative or not required by law. Electronically signed by: Star Hein M.D. 08/24/2021 4:21 PM
--- NOTE | 2021-08-24 16:28 | CT Scan Report ---
HEAD & NECK CTA HISTORY: ?TIA with L-sided arm numbness TECHNIQUE: Multiaxial CT images of the head were performed following the intravenous administration o f contrast to evaluate the major cerebral vessels. Multiaxial CT images of the neck were also perform ed following the intravenous administration of contrast to evaluate the major cervical vessels. Maxim um intensity projection images were also obtained. A dose lowering technique was utilized adhering to the principles of ALARA. COMPARISON: Head CT 12/11/2015. FINDINGS: The major dural venous sinuses are patent. Severely hypoplastic distal left vertebral artery. There i s a severely hypoplastic right P1 segment. Mild calcified plaque within the bilateral carotid siphons . Visualized intracranial internal carotid arteries, distal vertebral arteries, and basilar artery ar e widely patent. There is no significant stenosis, occlusion, or aneurysm seen within the bilateral A [place], MCAs, or motor grader rough grade. The aortic arch and proximal great vessels are widely patent. There is no significant stenosis, occ lusion, or dissection identified within the bilateral common carotid, internal carotid, or vertebral arteries. There is a severely hypoplastic left vertebral artery. Degenerative changes within the cerv ical spine. IMPRESSION: 1. No significant stenosis, occlusion, or aneurysm within the [place]. 2. No significant stenosis, occlusion, or dissection identified within the carotid or vertebral arter ies. ACT 112: Negative or not required by law. Electronically signed by: Kg Weiss M.D. 08/24/2021 4:27 PM
--- NOTE | 2021-08-24 16:28 | CT Scan Report ---
HEAD & NECK CTA HISTORY: ?TIA with L-sided arm numbness TECHNIQUE: Multiaxial CT images of the head were performed following the intravenous administration o f contrast to evaluate the major cerebral vessels. Multiaxial CT images of the neck were also perform ed following the intravenous administration of contrast to evaluate the major cervical vessels. Maxim um intensity projection images were also obtained. A dose lowering technique was utilized adhering to the principles of ALARA. COMPARISON: Head CT 12/11/2015. FINDINGS: The major dural venous sinuses are patent. Severely hypoplastic distal left vertebral artery. There i s a severely hypoplastic right P1 segment. Mild calcified plaque within the bilateral carotid siphons . Visualized intracranial internal carotid arteries, distal vertebral arteries, and basilar artery ar e widely patent. There is no significant stenosis, occlusion, or aneurysm seen within the bilateral A [place], MCAs, or laborer cook house. The aortic arch and proximal great vessels are widely patent. There is no significant stenosis, occ lusion, or dissection identified within the bilateral common carotid, internal carotid, or vertebral arteries. There is a severely hypoplastic left vertebral artery. Degenerative changes within the cerv ical spine. IMPRESSION: 1. No significant stenosis, occlusion, or aneurysm within the [place]. 2. No significant stenosis, occlusion, or dissection identified within the carotid or vertebral arter ies. ACT 112: Negative or not required by law. Electronically signed by: Kg Weiss M.D. 08/24/2021 4:27 PM
--- NOTE | 2021-08-24 21:18 | Magnetic Resonance Report ---
Brain MRI WITHOUT CONTRAST HISTORY: TIA - left arm numbness TECHNIQUE: Multiplanar multisequence MRI of the brain was performed without the use of contrast. COMPARISON STUDY: Head and neck CTA 08/24/2021. FINDINGS: There is no mass, hematoma, midline shift, or acute infarct. The paranasal sinuses are snehal r. The mastoid air cells are clear. The ventricles and sulci demonstrate mild age-related involutiona l changes. Scattered foci of T2 hyperintensity seen within the periventricular and subcortical white matter are nonspecific but suggestive of moderate microvascular ischemic changes. The major vascular flow voids at the skull base are well-maintained. Evidence for prior bilateral lens replacement. IMPRESSION: No acute intracranial abnormality. Scattered foci of T2 hyperintensity seen within the periventricula r and subcortical white matter are nonspecific but favor moderate microvascular ischemic change. ACT 112: Negative or not required by law. Electronically signed by: Kg Weiss M.D. 08/24/2021 9:16 PM
[2021-08-24] MEDS: ATORVASTATIN 10 MG TAB PO SCH (21:54)
[2021-08-24] MEDS: INSULIN GLARGINE SOLOSTAR 100 UNITS/ML 3 ML PEN SQ SCH (21:56)
[2021-08-25 06:39] LABS: Hematocrit (blood only) 36.9 % (37-47); Hemoglobin 12.4 g/dL (12.0-16.0); Mean Corpuscular Hgb Conc 33.6 g/dL (32-36); Mean Corpuscular Volume 95.3 fL (80-100); Mean Platelet Volume 11.5 fL (7.4-10.4); Platelet Count 124 K/uL (130-400); RDW Coefficient of Variation 14.3 % (11.5-14.5); RDW Standard Deviation 49.8 fL (36.4-46.3); Red Blood Count 3.87 M/uL (4.2-5.4); White Blood Count 3.25 K/uL (4.8-10.8)
[2021-08-25 07:06] LABS: BUN Creatinine Ratio 19.6 (10-20); Calcium 8.4 mg/dl (8.5-10.1); Creatinine Clr Calc Pharmacy 49.8 ml/min; Est GFR (African American) 60.6 ml/min; Est GFR (Non-African American) 52.3 ml/min; Potassium 3.9 mmol/L (3.5-5.1)
--- NOTE | 2021-08-25 07:11 | Hospitalist Progress Note ---
Date of Service August 24, 2021 Assessment & Plan (1) Orthostatic hypotension: Plan: 2nd to poor oral intake in the last 48 hours due to restricted diet in setting of rectal bleeding. did receive some IV fluids early in stay but nothing overnight (and was NPO in case she needed any GI procedure). s/p 1 L NS bolus. still orthostatic after such - gave additional 500cc bolus. she felt better w/ the above. HOLD losartan. Cut metoprolol dose in half to 12.5mg BID. Repeat orthos again tomorrow am. (2) Left arm numbness: Plan: This occurred in the setting of her orthostatic event and her near-syncope. With near-syncope there is cerebral hypoperfusion but this is odd in that her neuro symptoms were so focal. I cannot rule out an actual TIA event. Will start with CT head, CTA head/neck. Then obtain MRI brain. Consider echo. Keep on tele. Poor candidate for aspirin if truly a TIA event given #3, etc. Await imaging studies. (3) Bleeding per rectum: Plan: Known diverticular disease. However, GI feels that this is anal outlet bleeding likely from a hemorrhoid. Anusol cream TID started last pm. Continue x 1 week. H/H remain unchanged from yesterday. Diet as tolerated. Pt plans to get colonoscopy as outpatient in [place]. (4) History of cervical cancer: Plan: Initial dx early . s/p hysterectomy/BSO. (5) CLL (chronic lymphocytic leukemia): Plan: Follows with [facility]. Currently receives Imbruvica daily. Pt brought from home - I did order it for today. I spoke with our oncology provider - despite mild leukopenia/neutropenia/low platelets - counts are acceptable enough to cont her Imbruvica. B12/folate wnl. CBC am. Given the downtrending counts I advised she f/u with her oncologist in the next 1-2 weeks to ensure her counts are not dropping further. 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 Continue Myrbetriq With chronic cystitis -- continue her methenamine (9) Bilateral hydronephrosis: Plan: Chronic Creatinine is stable Plan: updated at bedside no d/c today 2nd to #1, #2 Admission and Anticipated Discharge Date Admission Date: August 23, 2021 Subjective overnight - no issues however, the patient was sitting in the chair and developed acute onset of severe dizziness she thought she was going to pass out while feeling dizzy she developed numbness of the left arm extending from the left elbow down to the left hand; all fingers were involved she had nausea she called for her nurse when nursing arrived she told them she wanted to get back in bed and also that she was very hungry the left arm numbness gradually resolved, lasting several minutes in duration; did not have motor weakness or numbness anywhere else nursing contacted me about the above - I gave order to allow diet, obtain orthostatics, and an EKG orthostatics were POSITIVE - 20+ point drop in SBP with standing. EKG - nonspecific ST changes anterior leads but essentially unchanged EKG from the prior one. I ordered a 1 L NS bolus. orthostatics were improved but not resolved despite such. when I arrived to assess her the dizziness was resolved. her arm numbness had resolved. she reports having had near-syncope in the past, and has actually had full syncope as well. denied ANY chest pain, headache, or shortness of breath during the above spell. with respect to lower GI bleeding - since last pm she has had several small stools WITHOUT any blood. no abd pain. Review of Systems Review of Systems: gen - no fever cv - no cp, no orthopnea HENT - mouth is dry and she is thirsty pulm - no cough or dyspnea GI - no pain Physical Exam Physical Exam: gen - NAD mouth - MM dry neck - no JVD heart - RRR, s1 s2, no murmur lungs - CTA b/l abd - soft NT ND BS+ ext - no edema, pulses 2+ b/l neuro - no facial droop; speech fluent/clear; sensation intact to light touch x 4 extremities; strength 5/5 x 4 exts; gait was not tested Results & Data Results & Data ([facility]) Vital Signs (Past 12 Hours) Vital Signs Temp Pulse Pulse Resp BP BP Pulse Ox 08/25/21 06:40 36.6 C 69 20 135/75 95 08/25/21 04:02 36.6 C 64 18 122/70 94 08/24/21 23:09 36.7 C 72 18 127/71 95 08/24/21 22:44 74 Laboratory Results CBC - mild leukopenia, mild neutropenia (ANC just shy of 1500), mild thrombocytopenia BMP wnl PG Care Time/CCT Total # of Minutes Spent Total Time Spent with Patient: Total time spent is greater than 50% in coordination of care (as documented) at patient's floor/unit and/or counseling patient: Coding Level of Care Code 68899 Subseq Hosp Care Lvl 3 Diagnoses Bleeding per rectum K62.5 History of cervical cancer Z85.41 CLL (chronic lymphocytic leukemia) C91.90 Diabetes E11.9 Paroxysmal A-fib I48.0 Urgency incontinence N39.41 Bilateral hydronephrosis N13.30 Orthostatic hypotension I95.1 Left arm numbness R20.0
[2021-08-25 07:22] LABS: Basophils # (auto) 0.01 K/uL (0-0.2); Basophils % (auto) 0.3 %; Eosinophils # (auto) 0.03 K/uL (0-0.5); Eosinophils % (auto) 0.9 %; Giant Platelets 1+; Lymphocytes # (auto) 1.84 K/uL (1.2-3.4); Lymphocytes % (auto) 56.6 %; Monocytes # (auto) 0.55 K/uL (0.11-0.59); Monocytes % (auto) 16.9 %; Neutrophils # (auto) 0.82 K/uL (1.4-6.5); Neutrophils % (auto) 25.3 %
[2021-08-25] MEDS: HYDROCORTISONE HC 2.5% CRM 30GM TUBE EXT SCH ×2 (08:43→14:48)
[2021-08-25] MEDS: busPIRone 15 MG TAB PO SCH ×2 (08:43→14:48)
[2021-08-25] MEDS: amLODIPine BESYLATE 5 MG TAB PO SCH (08:43)
[2021-08-25] MEDS: CALCIUM 600MG + VIT D 400 IU TAB PO SCH (08:43)
[2021-08-25] MEDS: METHENAMINE HIPPURATE 1 GM TAB PO SCH (08:44)
[2021-08-25] MEDS: IMBRUVICA SCH (08:45)
[2021-08-25] MEDS: MIRABEGRON ER 25 MG TAB PO SCH (08:45)
[2021-08-25] MEDS ORDERED: METOPROLOL TARTRATE 25 MG TAB PO SCH (09:00)
[2021-08-25] MEDS: INSULIN ASPART PER UNIT SC SCH ×2 (09:08→11:58)
--- NOTE | 2021-08-25 09:19 | Hospitalist Progress Note ---
Date of Service August 25, 2021 Assessment & Plan (1) Orthostatic hypotension: Plan: 2nd to poor oral intake in the last 48 hours due to restricted diet in setting of rectal bleeding. did receive some IV fluids early in stay but nothing overnight (and was NPO in case she needed any GI procedure). s/p 1 L NS bolus. still orthostatic after such - gave additional 500cc bolus. she felt better w/ the above. HOLD losartan. Cut metoprolol dose in half to 12.5mg BID. Repeat orthos again tomorrow am. (2) Left arm numbness: Plan: This occurred in the setting of her orthostatic event and her near-syncope. With near-syncope there is cerebral hypoperfusion but this is odd in that her neuro symptoms were so focal. I cannot rule out an actual TIA event. Will start with CT head, CTA head/neck. Then obtain MRI brain. Consider echo. Keep on tele. Poor candidate for aspirin if truly a TIA event given #3, etc. Await imaging studies. (3) Bleeding per rectum: Plan: Known diverticular disease. However, GI feels that this is anal outlet bleeding likely from a hemorrhoid. Anusol cream TID started last pm. Continue x 1 week. H/H remain unchanged from yesterday. Diet as tolerated. Pt plans to get colonoscopy as outpatient in [place]. (4) History of cervical cancer: Plan: Initial dx early . s/p hysterectomy/BSO. (5) CLL (chronic lymphocytic leukemia): Plan: Follows with [facility]. Currently receives Imbruvica daily. Pt brought from home - I did order it for today. I spoke with our oncology provider - despite mild leukopenia/neutropenia/low platelets - counts are acceptable enough to cont her Imbruvica. B12/folate wnl. CBC am. Given the downtrending counts I advised she f/u with her oncologist in the next 1-2 weeks to ensure her counts are not dropping further. 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 Stevenson Patient seen and examined in room 261. Possible TIA. CTA of the head and neck have been negative. Will check echocardiogram today. Has some orthostasis yesterday with severe dizziness. Review of Dr. Garcia'sAssessment yesterday as follows however, the patient was sitting in the chair and developed acute onset of severe dizziness she thought she was going to pass out while feeling dizzy she developed numbness of the left arm extending from the left elbow down to the left hand; all fingers were involved she had nausea she called for her nurse when nursing arrived she told them she wanted to get back in bed and also that she was very hungry the left arm numbness gradually resolved, lasting several minutes in duration; did not have motor weakness or numbness anywhere else nursing contacted me about the above - I gave order to allow diet, obtain orthostatics, and an EKG orthostatics were POSITIVE - 20+ point drop in SBP with standing. EKG - nonspecific ST changes anterior leads but essentially unchanged EKG from the prior one. I ordered a 1 L NS bolus. orthostatics were improved but not resolved despite such. when I arrived to assess her the dizziness was resolved. her arm numbness had resolved. she reports having had near-syncope in the past, and has actually had full syncope as well. denied ANY chest pain, headache, or shortness of breath during the above spell. with respect to lower GI bleeding - since last pm she has had several small stools WITHOUT any blood. no abd pain. Review of Systems Review of Systems: All systems reviewed & are unremarkable except as noted in Subjective Results & Data Results & Data ([facility]) Vital Signs (Past 12 Hours) Vital Signs Temp Pulse Pulse Resp BP BP Pulse Ox 08/25/21 07:31 70 08/25/21 06:40 36.6 C 69 20 135/75 95 08/25/21 04:02 36.6 C 64 18 122/70 94 08/24/21 23:09 36.7 C 72 18 127/71 95 08/24/21 22:44 74 Critical Care Results & Data Vital Signs (Past 12 Hours) Vital Signs Temp Pulse Pulse Resp BP BP Pulse Ox 08/25/21 07:31 70 08/25/21 06:40 36.6 C 69 20 135/75 95 08/25/21 04:02 36.6 C 64 18 122/70 94 08/24/21 23:09 36.7 C 72 18 127/71 95 08/24/21 22:44 74 Lab & Micro Results (Past 24 Hours) RBC 3.87 M/uL (4.2-5.4) L 08/25/21 WBC 3.25 K/uL (4.8-10.8) L 08/25/21 Hgb 12.4 g/dL (12.0-16.0) 08/25/21 Hct 36.9 % (37-47) L 08/25/21 MCV 95.3 fL (80-100) 08/25/21 MCH 32.0 pg (25-34) 08/25/21 MCHC 33.6 g/dL (32-36) 08/25/21 RDW Standard Deviation 49.8 fL (36.4-46.3) H 08/25/21 RDW Coefficient of Variation 14.3 % (11.5-14.5) 08/25/21 Plt Count 124 K/uL (130-400) L 08/25/21 MPV 11.5 fL (7.4-10.4) H 08/25/21 Neutrophils (%) (Auto) 25.3 % 08/25/21 Lymphocytes (%) (Auto) 56.6 % 08/25/21 Monocytes # (Auto) 0.55 K/uL (0.11-0.59) 08/25/21 Eosinophils # (Auto) 0.03 K/uL (0-0.5) 08/25/21 Immature Granulocyte % (Auto) 0.0 % 08/25/21 Neutrophils # (Auto) 0.82 K/uL (1.4-6.5) L* 08/25/21 Lymphocytes # (Auto) 1.84 K/uL (1.2-3.4) 08/25/21 Monocytes # (Auto) 0.55 K/uL (0.11-0.59) 08/25/21 Eosinophils # (Auto) 0.03 K/uL (0-0.5) 08/25/21 Basophils # (Auto) 0.01 K/uL (0-0.2) 08/25/21 Immature Granulocyte # (Auto) 0.00 K/uL (0.00-0.02) 08/25/21 Giant Platelets 1+ 08/25/21 Na 139 mmol/L (136-145) 08/25/21 K 3.9 mmol/L (3.5-5.1) 08/25/21 Cl 106 mmol/L (98-107) 08/25/21 CO2 27 mmol/L (21-32) 08/25/21 Anion Gap 6 (3-11) 08/25/21 BUN 20 mg/dl (6-23) 08/25/21 Creatinine 1.02 mg/dl (0.6-1.2) 08/25/21 Estimated GFR ( Amer) 60.6 ml/min 08/25/21 Estimated GFR (Non-Af Amer) 52.3 ml/min 08/25/21 BUN/Creatinine Ratio 19.6 (10-20) 08/25/21 Glu 134 mg/dl (70-99(Fasting)) H 08/25/21 Ca 8.4 mg/dl (8.5-10.1) L 08/25/21 Calcium Level 8.4 mg/dl (8.5-10.1) L 08/25/21 06:27 08/25/21 Diagnostic Findings (Past 24 Hours) Head CTA 08/24/21 14:11 HEAD & NECK CTA HISTORY: ?TIA with L-sided arm numbness TECHNIQUE: Multiaxial CT images of the head were performed following the intrave nous administration of contrast to evaluate the major cerebral vessels. Multiaxial CT images of the neck were also performed following the intravenous administration of contrast to evaluate the major cervical vessels. Maximum intensity projection images were also obtained. A dose lowering technique was utilized adhering to the principles of ALARA. COMPARISON: Head CT 12/11/2015. FINDINGS: The major dural venous sinuses are patent. Severely hypoplastic distal left vertebral artery. There is a severely hypoplastic right P1 segment. Mild calcified plaque within the bilateral carotid siphons. Visualized intracranial internal carotid arteries, distal vertebral arteries, and basilar artery are widely patent. There is no significant stenosis, occlusion, or aneurysm seen within the bilateral ACAs, MCAs, or trailer tank truck driver. The aortic arch and proximal great vessels are widely patent. There is no si gnificant stenosis, occlusion, or dissection identified within the bilateral common carotid, internal carotid, or vertebral arteries. There is a severely hypoplastic left vertebral artery. Degenerative changes within the cervical spine. IMPRESSION: 1. No significant stenosis, occlusion, or aneurysm within the [place]. 2. No significant stenosis, occlusion, or dissection identified within the carotid or vertebral arteries. ACT 112: Negative or not required by law. Electronically signed by: Kg Weiss M.D. 08/24/2021 4:27 PM Neck CTA 08/24/21 14:11 HEAD & NECK CTA HISTORY: ?TIA with L-sided arm numbness TECHNIQUE: Multiaxial CT images of the head were performed following the intravenous administration of contrast to evaluate the major cerebral vessels. Multiaxial CT images of the neck were also performed following the intravenous administration of contrast to evaluate the major cervical vessels. Maximum inte nsity projection images were also obtained. A dose lowering technique was utilized adhering to the principles of ALARA. COMPARISON: Head CT 12/11/2015. FINDINGS: The major dural venous sinuses are patent. Severely hypoplastic distal left vertebral artery. There is a severely hypoplastic right P1 segment. Mild calcified plaque within the bilateral carotid siphons. Visualized intracranial internal carotid arteries, distal vertebral arteries, and basilar artery are widely patent. There is no significant stenosis, occlusion, or aneurysm seen within the bilateral ACAs, MCAs, or trailer tank truck driver. The aortic arch and proximal great vessels are widely patent. There is no significant stenosis, occlusion, or dissection identified within the bilateral common carotid, internal carotid, or vertebral arteries. There is a severely hypoplastic left vertebral artery. Degenerative changes within the cervical spine. IMPRESSION: 1. No significant stenosis, occlusion, or aneurysm within the [place]. 2. No significant stenosis, occlusion, or dissection identified within the carotid or vertebral arteries. ACT 112: Negative or not required by law. Electronically signed by: Kg Weiss M.D. 08/24/2021 4:[address] 08/24/21 15:38 CT OF THE HEAD WITHOUT CONTRAST CLINICAL HISTORY: Left arm numbness. Headaches. COMPARISON STUDY: Head CT December 11, 2015. TECHNIQUE: Helical axial images of the head were obtained without IV contrast. Automated exposure control was utilized for the study. A dose lowering technique was utilized adhering to the principles of ALARA. FINDINGS: No acute intracranial hemorrhage, midline shift or mass effect is present. White matter hypodensities favor small vessel disease. The ventricular system is unremarkable. The basal cisterns are patent. No extra-axial collections are present. There are no findings to suggest acute dural sinus thrombosis or acute territorial infarct. No significant calvarial abnormalities are present. Visualized portions of the sinuses and mastoid air cells are clear. IMPRESSION: No acute intracranial findings. ACT 112: Negative or not required by law. Electronically signed by: Star Hein M.D. 08/24/2021 4:21 PM Brain MRI 08/24/21 18:50 Brain MRI WITHOUT CONTRAST HISTORY: TIA - left arm numbness TECHNIQUE: Multiplanar multisequence MRI of the brain was performed without the use of contrast. COMPARISON STUDY: Head and neck CTA 08/24/2021. FINDINGS: There is no mass, hematoma, midline shift, or acute infarct. The paranasal sinuses are clear. The mastoid air cells are clear. The ventricles and sulci demonstrate mild age-related involutional changes. Scattered foci of T2 hyperintensity seen within the periventricular and subcortical white matter are nonspecific but suggestive of moderate microvascular ischemic changes. The major vascular flow voids at the skull base are well-maintained. Evidence for prior bilateral lens replacement. IMPRESSION: No acute intracranial abnormality. Scattered foci of T2 hyperintensity seen within the periventricular and subcortical white matter are nonspecific but favor moderate microvascular ischemic change. ACT 112: Negative or not required by law. Electronically signed by: Kg Weiss M.D. 08/24/2021 9:16 PM I & O Totals 24 Hours 08/24/21 08/25/21 08/26/21 06:59 06:59 06:59 Intake Total 475 / 475 2420 / 2420 Balance 475 / 475 2420 / 2420 Cumulative 08/23/21 07:37 thru 08/25/21 06:11 Intake Total 2895 Balance 2895 RT Ventilator Mngmt (Last Documented) Ventilator Ordered Settings Respiratory Rate 20 08/25/21 06:40 Ventilator - PT Measurements Respiratory Rate 20 PG Care Time/CCT Total # of Minutes Spent Total Time Spent with Patient: Total time spent is greater than 50% in coordination of care (as documented) at patient's floor/unit and/or counseling patient: Coding Diagnoses Orthostatic hypotension I95.1 Left arm numbness R20.0 Bleeding per rectum K62.5 History of cervical cancer Z85.41 CLL (chronic lymphocytic leukemia) C91.90 Diabetes E11.9 Paroxysmal A-fib I48.0 Urgency incontinence N39.41 Bilateral hydronephrosis N13.30
[2021-08-25] MEDS: CHOLECALCIFEROL 1,000 UNITS 25 MCG TAB PO SCH (11:52)
--- NOTE | 2021-08-25 16:38 | Discharge Summary ---
Date of Service August 25, 2021 Admission HPI Per Admitting Provider 81 YOM with past medical history of: Metastatic cervical cancer, CLL, Afib (on Xarelto), anxiety, peripheral neuropathy, HTN, DM, UTI, COVID 05/19. Patient comes to the [facility] today for complaints of blood on her stool, in the toilet, and toilet paper. This appears to be chronic in nature and normally follows with GI in [place]. Secondary to this bleeding she has been on and off her Xarelto because the bleeding "makes her very nervous". She had an GI interventional appointment what appears to be earlier in July and patient states that she got "sick" and the case was cancelled. She reports the sick as being "cold, tired and with nausea". Since that time she had blood in her stools on the Jul that she reported as blood in the toilet water, dark stool with blood on it and clots about the size of a dime noted. She has blood on the toilet paper that stops after 4-5 wipes with not clots and is bright. She was to have follow up with her GI doctor on Friday. She was discharged from [place] on Jul she restarted her Xarelto and had her bleeding restart yesterday 08/22 and this morning 08/23. She endorses her bleeding only occurs in the morning and no further episodes throughout the day. She has not had any blood on her undergarments and no abdominal pain, dizziness, chest pain, or difficulty breathing. She is concerned that it will just not stop. She had CT scan of her abdomen performed at [place] (report scanned in) that was interpreted as uncomplicated diverticulosis. Patient will be admitted to follow her symptoms, will consult GI for evaluation, will place on clears for now and hold her Xarelto. She last took her Xarelto 08/23/21 in morning prior to coming to the hospital. Patient COVID test on admission is: NEGATIVE Admission Exam Per Admitting Provider PHYSICAL EXAM: General: awake, alert, no apparent distress Head: Normocephalic, atraumatic ENT: PERRL, EOMI, no pharyngeal exudate, mucous membranes moist Neuro: AAO x 3, speech clear and appropriate, strength intact bilaterally 5/5, sensation intact and equal all extremities and dermatomes, no pronator drift Chest: equal rise and fall of the chest, no accessory muscle use, no heaves or thrills, Clear to auscultation, on room air, Cardiac: Regular rate and rhythm, telemetry reviewed-sinus, skin warm dry, cap refill <3 seconds, peripheral pulses +2 no JVD, no murmur, trace lower extremity edema GI: NABS x 4 quadrants, soft, nontender to palpation, no rebound, guarding or tenderness : Spontaneously voiding, no pain, no CVA tenderness, incontinence Extremities: Normal inspection, no peripheral edema or erythema, calfs nontender to palpation Psych: Normal mood and affect Skin: bruises Principal Diagnosis Bright red blood per rectum Discharge Exam GENERAL : No acute distress. No slurred speech. No loss of balance. Full function of all extremities. EYES: No icterus, gaze conjugate. Pupils equal round and reactive to light NOSE: No evidence of epistaxis MOUTH: No lesions or candidiasis. Tongue midline NECK: Supple LUNGS: CTA B/L, no wheezes, rales or rhonchi HEART: Regular, rate controlled. No appreciation of ectopy ABDOMEN: Soft, NT, ND, BS Present EXTREMITIES: No LE edema, pedal pulses intact NEURO: A&OX3. Cerebellar function intact with [id number] and rapid alternating movements. Gait and Romberg within normal limits. Strength equal and appropriate bilaterally all 4 limbs. No slurred speech. No facial droop. No pronator drift. Discharge Data Allergies Allergy/AdvReac Type Severity Reaction Status Date / Time nut - unspecified Allergy Severe Swelling Verified 08/23/21 09:18 of Lip/Tongue/Throat nitrofurantoin Allergy Mild tachycardia Verified 08/23/21 09:18 aspirin Allergy Unknown INCREASES Verified 08/23/21 09:18 BLEEDING duloxetine AdvReac Severe SEVERE Verified 08/23/21 09:18 VOMITING caffeine AdvReac Intermediate racing Verified 08/23/21 09:18 heart Sulfa (Sulfonamide AdvReac Intermediate Tinnitis Verified 08/23/21 09:18 Antibiotics) acetaminophen [From Tylenol] AdvReac liver bleed Verified 08/23/21 09:18 lisinopril AdvReac cough, Verified 08/23/21 09:18 white "stuff" all over lungs Consultations 08/23/21 09:42 ED Decision to Admit Stat 08/23/21 11:16 Consult Gastroenterology Routine Assessment & Plan (1) Bleeding per rectum: She is passing bright red blood rectally, w/o a drop in Hb or BUN and has a visible hemorrhoid on exam, with a small amt of bright red blood on return on the digital exam - but the rectal vault was not full of blood. She describes this as "dripping of blood into the toilet." These symptoms and her exam/labs are very consistent with hemorrhoidal bleeding. She is set up with her regular GI, Dr. Lala. We suggest that she follow up with that group as previously scheduled on this coming Friday, to arrange colonoscopy. She tells us that she that she would like to have him complete her next colonoscopy. Ordered Studies 08/24/21 14:11 CT angio head w con Routine CT angio neck with con Routine 08/24/21 15:38 CT head/brain wo con Routine 08/24/21 18:50 MR brain wo con Routine Brain MRI 08/24/21 18:50 Brain MRI WITHOUT CONTRAST HISTORY: TIA - left arm numbness TECHNIQUE: Multiplanar multisequence MRI of the brain was performed without the use of contrast. COMPARISON STUDY: Head and neck CTA 08/24/2021. FINDINGS: There is no mass, hematoma, midline shift, or acute infarct. The paranasal sinuses are clear. The mastoid air cells are clear. The ventricles and sulci demonstrate mild age-related involutional changes. Scattered foci of T2 hyperintensity seen within the periventricular and subcortical white matter are nonspecific but suggestive of moderate microvascular ischemic changes. The major vascular flow voids at the skull base are well-maintained. Evidence for prior bilateral lens replacement. IMPRESSION: No acute intracranial abnormality. Scattered foci of T2 hyperintensity seen within the periventricular and subcortical white matter are nonspecific but favor moderate microvascular ischemic change. ACT 112: Negative or not required by law. Electronically signed by: Kg Weiss M.D. 08/24/2021 9:16 PM Hospital Course (1) Orthostatic hypotension: 2nd to poor oral intake in the last 48 hours due to restricted diet in setting of rectal bleeding. did receive some IV fluids early in stay but nothing overnight (and was NPO in case she needed any GI procedure). s/p 1 L NS bolus. still orthostatic after such - gave additional 500cc bolus. she felt better w/ the above. HOLD losartan. Cut metoprolol dose in half to 12.5mg BID. Repeat orthos today within normal limits. (2) Left arm numbness: This occurred in the setting of her orthostatic event and her near- syncope. With near-syncope there is cerebral hypoperfusion but this is odd in that her neuro symptoms were so focal. cannot rule out an actual TIA event. All brain and neck imaging within normal limits. No appreciation of arrhythmias on telemetry Echocardiogram performed today. Slide Maker is not available to interpret All left arm numbness has resolved. We will discharge home and follow echocardiogram results Consider outpatient evaluation with neurology Poor candidate for aspirin if truly a TIA event given #3, etc. Await imaging studies. (3) Bleeding per rectum: Known diverticular disease. However, GI feels that this is anal outlet bleeding likely from a hemorrhoid. Anusol cream TID started last pm. Continue x 1 week. H/H remain unchanged from yesterday. Diet as tolerated. Pt plans to get colonoscopy as outpatient in [place]. (4) History of cervical cancer: Initial dx early . s/p hysterectomy/BSO. (5) CLL (chronic lymphocytic leukemia): Follows with [facility]. Currently receives Imbruvica daily. Due to questionable TIA symptoms versus upper extremity numbness, and downtrending counts, advised patient to contact oncologist/medieval english literature professor to discuss resuming this medication. Given the downtrending counts I advised she f/u with her oncologist in the next 1-2 weeks to ensure her counts are not dropping further. (6) Diabetes: DMII on Basal insulin 26 units and aspart TID at home Cont basal-bolus insulin while here BSGs acceptable at this time Outpatient follow-up with primary care provider (7) Paroxysmal A-fib: Remains in NSR rate controlled with- Metoprolol 25 mg PO BID lowering the metoprolol to 12.5mg BID due to #1 hopefully can resume her normal dose at discharge if she truly had TIA she should not stop the Xarelto even despite the mild rectal bleeding Check an echocardiogram today with bubble study. Patient aware that we will not have result today. 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 Follow-up with primary care and oncology/hematology within the next week Follow-up with gastroenterology in [place] per patient's request for colonoscopy Total Time Total Time Spent Total Time Spent (In Minutes): 60 minutes Discharge Plan Discharge Items Reason For Visit: BLOOD IN STOOL Discharge Diagnosis: Most likely hemorrhoid Orthostatic hypotension Activity: Resume your previous activity Lifting: Gradually increase as tolerated Bathing: No limitations Exercise/Sports: Gradually increase as tolerated Weightbearing: Full weightbearing Non-emergency contact: Primary Care Provider and Oncologist Call non-emergency contact if: you have any medication questions Follow-up/Referrals: Keith Hutchinson DO [Primary Care Provider] - Diet: Carb Consistent or DM2 and Heart Healthy Addtl Attending Provider Instructions: You were admitted with rectal bleeding. This appears to be from a hemorrhoid. You are advised to follow-up with your otolaryngologist in [place] for colonoscopy and further following. All blood counts are stable. Regarding her CLL, informal discussion with medieval english literature professor at [facility] advises that it is probably okay to continue your Imbruvica. Per our discussion you should check with your oncologist/medieval english literature professor for further instructions on resuming medication Regarding your left arm numbness, all imaging was negative. Numbness resolved within the day. You did have low blood pressure when sitting and standing which improved with IV fluids. Repeat blood pressures laying down, sitting, standing were within normal limits on the day of discharge. If the symptoms recur, contact your primary care provider or report to the nearest emergency room for further evaluation. You may elect to follow with an outpatient neurologist to rule out TIA (transischemic attack) Your blood pressure medication (metoprolol tartrate) has been decreased from 25 mg twice daily to 12.5 mg twice daily. You can take 1/2 tablet twice a day using the same medication you have at home. You should follow-up with your primary care provider within the next 7 days. Pending Studies at Discharge: Yes Studies:: An echocardiogram of the heart was performed on the day of discharge. Report is still pending. Stand-Alone Forms: My [facility] Medications and DC Order Prescriptions: New metoprolol tartrate 25 mg Tablet 12.5 mg PO BID Qty: 30 RF: 0 Continued Basaglar KwikPen U-100 Insulin 100 unit/mL (3 mL) insulin pen 26 unit SUBCUT HS Qty: 15 RF: 3 ferrous sulfate [FeroSul] 325 mg (65 mg iron) tablet 325 mg PO BID Qty: 180 RF: 1 atorvastatin 10 mg tablet 10 mg PO HS Qty: 90 RF: 1 (DME) lancets [Prodigy Lancets] 28 gauge misc See Rx Instructions .Route Qty: 300 RF: 3 ondansetron HCl 4 mg tablet 4 mg PO Q8H PRN (Reason: Nausea) Qty: 90 RF: 1 potassium chloride 10 mEq capsule, extended release 10 meq PO BID Qty: 180 RF: 3 ascorbic acid (vitamin C) [Vitamin C] 500 mg tablet 500 g PO BID Qty: 180 RF: 1 Eliquis 5 mg tablet 5 mg PO BID Qty: 60 RF: 2 Myrbetriq 50 mg tablet extended release 24 hr 50 mg PO DAILY RF: 0 (DME) pen needle, diabetic [BD Ultra-Fine Mini Pen Needle] 31 gauge x 3/16" needle See Rx Instructions .Route Qty: 100 RF: 3 insulin aspart U-100 [Novolog U-100 Insulin aspart] 100 unit/mL solution 6 unit subcut TID Qty: 30 RF: 3 methenamine hippurate 1 gram tablet 1 g PO BID Qty: 90 RF: 3 losartan 25 mg tablet 25 mg PO DAILY RF: 0 amlodipine 5 mg tablet 5 mg PO BID RF: 0 Glucosamine Chondroitin 550-30-1 mg Capsule 1 cap PO QDL RF: 0 magnesium oxide 400 mg (241.3 mg magnesium) tablet 400 mg PO BID RF: 0 omega 7-evg-yun-fish oil [Fish Oil] 1,200 (144-216) mg Capsule 1 cap PO QDL RF: 0 calcium carbonate [Calcium 600] 600 mg calcium (1,500 mg) tablet 600 mg PO BID RF: 0 cholecalciferol (vitamin D3) [Vitamin D3] 25 mcg (1,000 unit) tablet 1,000 unit PO QDL RF: 0 multivitamin Tablet 1 tab PO QDL RF: 0 omeprazole 40 mg capsule,delayed release(DR/EC) 40 mg PO QAM RF: 0 buspirone 15 mg tablet 15 mg PO TID RF: 0 Imbruvica 280 mg tablet 280 mg PO QAM RF: 0 vitamin B complex Tablet 1 tab PO QDL RF: 0 garlic 100 mg Tablet 0 mg PO DAILY RF: 0 Discontinued metoprolol tartrate 25 mg Tablet 25 mg PO BID Qty: 60 RF: 0 Admission Data Admit Date/Time: 08/23/21 10:41 Attending Provider: Tien Stevenson Admit Provider: Kannan Garcia Primary Care Provider: Keith Hutchinson Other Providers: Kannan Garcia ; Bobby Roblero Coding Level of Care Code D/C DAY MANAGEMENT >30 MINS Diagnoses Orthostatic hypotension I95.1 Left arm numbness R20.0 Bleeding per rectum K62.5 History of cervical cancer Z85.41 CLL (chronic lymphocytic leukemia) C91.90 Diabetes E11.9 Paroxysmal A-fib I48.0 Urgency incontinence N39.41 Bilateral hydronephrosis N13.30
--- NOTE | 2021-08-26 12:02 | XCELERA ---
[id number]
== END 2021-08-25 18:09 | disposition home or self-care (01) | DRG 394 ==
LOC: ED 07:37 → EDINP 10:41 → SUATTDRO 10:41 → 2W 11:14

== ENCOUNTER 2022-12-17 08:45 | Inpatient (IN) ==
--- NOTE | 2022-12-17 09:00 | Emergency Department Note ---
Impression & Plan Acute UTI ADMIT ED Provider Note HPI: The patient is an 82-year-old female with history of recurrent urinary tract infections, presents emergency department today with a chief complaint of dysuria for the past 3 days. Patient states that she was just discharged from [facility] this past after she was admitted for urinary tract infection that required IV antibiotics. On arrival here to the ED the patient is alert, she is hemodynamically stable and otherwise in no acute distress. She states that she has burning when she urinates but denies any abdominal pain, denies any vomiting. Patient is afebrile on arrival. ROS: - Per HPI Differential Diagnosis: Urinary tract infection, pyelonephritis, cystitis, amongst other potential pathologies. *Outpatient medications and allergy history reviewed. *Pertinent external medical records reviewed. PE: General: Alert HEENT: Normocephalic, trachea midline Eyes: Extraocular eye movement is intact, no scleral erythema Pulmonary: Clear to auscultation bilaterally, no wheezing Cardio: Regular rate and rhythm GI: Abdomen is soft to palpation : No suprapubic tenderness MSK: No evidence of trauma or malformation of the extremities, no edema Skin: No evidence of rash Neuro: Alert, no focal deficits Psychiatric: Cooperative unix architect: (As interpreted by myself): - An order was placed for continuous cardiac monitoring - Patient was noted to be in sinus rhythm with a rate of 80 Interventions provided in ED: -IV meropenem Medical Decision Making: Patient has a history of ESBL urinary tract infections, recently was on a course of ertapenem as an outpatient through PICC line. Patient presents with several days of dysuria. Urinalysis does appear consistent with infection, nitrite and leukocyte esterase positive. No evidence of acute kidney injury is noted. No leukocytosis. Case was discussed with on-call pharmacy here in the ED, decision was made to start the patient on meropenem and patient will require admission given history of ESBL urinary tract infection. We will send this urine sample for culture as well. Patient is in agreement to the above plan. Case was discussed with the on-call hospitalist, Dr. Cantu, and the patient was placed for admission in stable condition. Consultants: Hospitalist, Dr. Cantu Disposition discussion held by myself with: Patient Diagnosis: 1. Urinary tract infection, acute 2. 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 Metastatic cancer to intra-abdominal lymph nodes Paroxysmal A-fib Peripheral neuropathy Poisoning by acemetacin Recurrent UTI Transaminitis Urgency incontinence Surgical History H/O: hysterectomy S/P appendectomy S/P cataract surgery both eyes S/P cholecystectomy Family History Mother Heart disease Father Lung disease Prostate cancer Sister COVID Arthritis Uncle Myocardial infarction Heart disease Aunt Myocardial infarction Denies family history of Ovarian cancer Breast cancer Colorectal cancer Social History Smoking Status: Never smoker Second Hand Exposure: No; Do You Dip or Chew Tobacco: No; Hx Alcohol Use: No Hx Substance Use: No Preferred Language: Croatian Communication Ability: Effective Visual Impairment: Partially Limited Hearing Ability: Normal Leacher Required: No Beliefs That Will Affect Care: None marital status: Current Living Situation: Alone and Spouse Current Living Situation Comment: [place] style home current occupational status: retired current occupation: [employer] How many Children do You have: 1 Other Information That Helps Us Care for You: No other: 1 alive and 1 Feels Safe at Home: Yes Safety Concerns: Feels Safe At This Time Childhood Exposure to Second-Hand Smoke: No Dental Care, Regularly: No Physical Activity Frequency: Does not Exercise Seatbelt Use: always Sunscreen Use: No (hardly in sun d/t medicine ) Gender Identity: Female Assistive Devices: Glasses Allergies Allergies Allergy/AdvReac Type Severity Reaction Status Date / Time amoxicillin Allergy Severe Swelling Verified 12/17/22 11:06 of Lip/Tongue/Throat cefazolin Allergy Severe Hives Unverified 12/17/22 11:06 egg Allergy Severe Gastrointestinal Unverified 12/17/22 11:06 Upset nut - unspecified Allergy Severe Swelling Verified 12/17/22 11:06 of Lip/Tongue/Throat pineapple Allergy Severe Swelling Verified 12/17/22 11:06 of Lip/Tongue/Throat nitrofurantoin Allergy Mild tachycardia Verified 12/17/22 11:06 aspirin Allergy Unknown INCREASES Verified 12/17/22 11:06 BLEEDING acetaminophen [From Tylenol] AdvReac Severe liver bleed Verified 12/17/22 11:06 duloxetine AdvReac Severe SEVERE Verified 12/17/22 11:06 VOMITING caffeine AdvReac Intermediate racing Verified 12/17/22 11:06 heart lisinopril AdvReac Intermediate cough, Verified 12/17/22 11:06 white "stuff" all over lungs Sulfa (Sulfonamide AdvReac Intermediate Tinnitis Verified 12/17/22 11:06 Antibiotics) Home Meds Home Medications Medication Instructions Recorded Confirmed amlodipine 5 mg tablet 5 mg PO BID 06/24/20 12/17/22 glucosamine sulf dipot 1 cap PO QDL 06/24/20 12/17/22 chlr,msm,chond 550 mg-C 30 mg-aleena 1 mg capsule (Glucosamine Chondroitin) magnesium oxide 400 mg (241.3 mg 400 mg PO BID 06/24/20 12/17/22 magnesium) tablet omega 0-ofz-txa-fish oil 1,200 mg 1 cap PO QDL 06/24/20 12/17/22 (144 mg-216 mg) capsule (Fish Oil) ibrutinib 280 mg tablet (Imbruvica) 280 mg PO QAM 11/10/20 12/17/22 multivitamin 1 tab PO QDL 11/10/20 12/17/22 losartan 25 mg tablet 25 mg PO DAILY 07/19/21 12/17/22 garlic 100 mg tablet 100 mg PO DAILY 08/23/21 12/17/22 ascorbic acid (vitamin C) 500 mg 500 mg PO BID 04/13/22 12/17/22 tablet (Vitamin C) cholestyramine (with sugar) 4 gram 4 g PO BID 10/24/22 12/17/22 powder for susp in a packet (Questran) calcium carbonate 600 mg calcium 600 mg PO DAILY 11/29/22 12/17/22 (1,500 mg) tablet (Calcium) cranberry fruit concentrate 125 mg 250 mg PO DAILY 11/29/22 12/17/22 disintegrating tablet carboxymethylcellulose sodium 1 % 2 drp ophthalmic (eye) BID PRN Dry 12/17/22 12/17/22 eye liquid gel drops Eye(S) cyanocobalamin (vitamin B-12) 1,000 mcg PO DAILY 12/17/22 12/17/22 1,000 mcg tablet (Vitamin B-12) lactobacillus combination no.4 3 3,000 mmu cells PO DAILY 12/17/22 12/17/22 billion cell capsule (Probiotic) omeprazole 20 mg capsule,delayed 20 mg PO DAILY 12/17/22 12/17/22 release Previous Rx's Medication Instructions Recorded lancets 28 gauge (iCrederity Lancets) #300 ea 04/23/21 ondansetron HCl 4 mg tablet 4 mg PO Q8H PRN Nausea #90 tabs 06/18/21 metoprolol tartrate 25 mg tablet 12.5 mg PO BID #30 tabs 08/25/21 cholecalciferol (vitamin D3) 25 1,000 unit PO QDL #30 tabs 11/13/21 mcg (1,000 unit) tablet (Vitamin D3) insulin syr/ndl U100 half morena 0.3 #300 ea 11/29/21 mL 31 gauge x 5/16" (BD Insulin Syringe Ultra-Fine (half unit)) ferrous sulfate 325 mg (65 mg 325 mg PO BID #180 tabs 12/11/21 iron) tablet (FeroSul) blood sugar diagnostic (Prodigy No #100 ea 04/18/22 Coding strips) insulin glargine 100 unit/mL (3 26 unit (0.26 mL) subcut HS #15 mL 05/27/22 mL) subcutaneous pen (Basaglar KwikPen U-100 Insulin) pen needle, diabetic 31 gauge x #100 ea 06/14/22 3/16" (BD Ultra-Fine Mini Pen Needle) potassium chloride 10 mEq 10 meq PO BID #180 caps 07/23/22 capsule,extended release atorvastatin 10 mg tablet 10 mg PO HS #90 tabs 09/09/22 insulin aspart U-100 100 unit/mL 7 unit (0.07 mL) subcut TID #30 mL 09/27/22 subcutaneous solution (Novolog U-100 Insulin aspart) estradiol 0.01% (0.1 mg/gram) 0.5 appful vaginal .COMPLEX #42.5 10/09/22 vaginal cream grams flash glucose sensor (FreeStyle #1 ea 11/06/22 Vicente 2 Sensor kit) flash glucose sensor (FreeStyle #1 ea 11/06/22 Vicente 2 Sensor kit) buspirone 15 mg tablet 15 mg PO TID #270 tabs 11/26/22 nystatin-triamcinolone 100,000 1 applic topical BID #30 grams 12/09/22 unit/gram-0.1 % topical ointment Results & Data (ED) Vital Signs Vital Signs - 24 hr 12/17/22 08:48 12/17/22 10:59 12/17/22 11:19 Temperature 37.0 C Temperature Source Oral Pulse Rate 71 74 77 Pulse Rate from SpO2 Sensor 77 Respiratory Rate 19 15 20 Respiratory Effort / Characteristics Non-Labored Spontaneous Respiratory Depth Normal Respiratory Pattern Regular Blood Pressure 118/59 L Blood Pressure Mean 78 Blood Pressure Position Sitting Pulse Oximetry 95 97 95 Oxygen Delivery Method Room Air Nasal Cannula Sepsis Recent Fever Within 48 Hours No Sepsis New/Unexplained Change in Mental Status No Sepsis Action Taken by Nursing No Action Required 12/17/22 11:20 12/17/22 11:30 12/17/22 11:40 Temperature Temperature Source Pulse Rate 77 81 75 Pulse Rate from SpO2 Sensor 77 81 74 Respiratory Rate 15 19 17 Respiratory Effort / Characteristics Respiratory Depth Respiratory Pattern Blood Pressure Blood Pressure Mean Blood Pressure Position Pulse Oximetry 94 96 95 Oxygen Delivery Method Sepsis Recent Fever Within 48 Hours Sepsis New/Unexplained Change in Mental Status Sepsis Action Taken by Nursing 12/17/22 11:50 12/17/22 12:00 Temperature Temperature Source Pulse Rate 76 75 Pulse Rate from SpO2 Sensor 76 76 Respiratory Rate 18 17 Respiratory Effort / Characteristics Respiratory Depth Respiratory Pattern Blood Pressure Blood Pressure Mean Blood Pressure Position Pulse Oximetry 95 95 Oxygen Delivery Method Sepsis Recent Fever Within 48 Hours Sepsis New/Unexplained Change in Mental Status Sepsis Action Taken by Nursing Laboratory Data 12/17/22 09:38 12/17/22 09:38 Lab Results 12/17/22 12/17/22 12/17/22 Range/Units 09:38 09:38 09:45 WBC 6.15 (4.8-10.8) K/ul RBC 3.98 L (4.20-5.40) M/uL Hgb 12.7 (12.0-16.0) g/dl Hct 37.2 (37.0-47.0) % MCV 93.5 (80.0-100.0) fL MCH 31.9 (25.0-34.0) pg MCHC 34.1 (32.0-36.0) g/dL RDW Std Deviation 47.4 H (36.4-46.3) fL RDW Coeff of Matthew 13.8 (11.5-14.5) % Plt Count 136 (130-400) K/uL MPV 12.1 (9.4-12.4) fL Immature Gran % (Auto) 0.5 % Neut % (Auto) 49.8 % Lymph % (Auto) 34.3 % [place] % (Auto) 15.1 % Eos % (Auto) 0.0 % Baso % (Auto) 0.3 % Neut # (Auto) 3.06 (1.40-6.50) K/uL Lymph # (Auto) 2.11 (1.2-3.4) K/uL [place] # (Auto) 0.93 H (0.11-0.59) K/uL Eos # (Auto) 0.00 (0-0.50) K/uL Baso # (Auto) 0.02 (0-0.2) K/uL Immature Gran # (Auto) 0.03 (0.01-0.20) K/uL Sodium 138 (136-145) mmol/L Potassium 3.9 (3.5-5.1) mmol/L Chloride 107 (98-107) mmol/L Carbon Dioxide 26 (21-32) mmol/L Anion Gap 5 (3-11) BUN 23 (6-23) mg/dl Creatinine 1.19 (0.6-1.2) mg/dl Est Cr Clr Drug Dosing Not Reportable Est GFR ( Amer) 49.9 ml/min Est GFR (Non-Af Amer) 43.1 ml/min BUN/Creatinine Ratio 19.3 (10-20) Glucose 142 H (70-99(Fasting)) mg/dl Calcium 9.3 (8.6-10.3) mg/dl Total Bilirubin 2.5 H (0.2-1.0) mg/dl AST 13 (13-39) U/L ALT 14 (7-52) U/L Alkaline Phosphatase 60 (34-104) U/L Total Protein 6.3 (6.0-8.3) gm/dl Albumin 3.5 (3.4-5.0) gm/dl Globulin 2.8 (2.5-4.0) gm/dl Albumin/Globulin Ratio 1.3 (0.9-2) Urine Color Yellow Urine Appearance Turbid A (Clear) Urine pH 5.5 (4.5-7.5) Ur Specific [place] 1.009 (1.000-1.030) Urine Protein 1+ H (Negative) Urine Glucose (UA) Negative (Negative) Urine Ketones Negative (Negative) Urine Blood 2+ H (Negative) Urine Nitrite Positive A (Negative) Urine Bilirubin Negative (Negative) Urine Urobilinogen Negative (Negative) Ur Leukocyte Esterase 3+ H (Negative) Urine WBC (Auto) >30 H (0-5) /hpf Urine RBC (Auto) 5-10 H (0-4) /hpf U Hyaline Cast (Auto) 1-5 (0-5) /lpf U Epithel Cells (Auto) 20-30 H (0-5) /lpf Urine Bacteria (Auto) 4+ H (Negative) Urine Crystals Not Reportable SARS-CoV-2, RNA, NAAT (NEGATIVE) 12/17/22 Range/Units 11:00 WBC (4.8-10.8) K/ul RBC (4.20-5.40) M/uL Hgb (12.0-16.0) g/dl Hct (37.0-47.0) % MCV (80.0-100.0) fL MCH (25.0-34.0) pg MCHC (32.0-36.0) g/dL RDW Std Deviation (36.4-46.3) fL RDW Coeff of Matthew (11.5-14.5) % Plt Count (130-400) K/uL MPV (9.4-12.4) fL Immature Gran % (Auto) % Neut % (Auto) % Lymph % (Auto) % [place] % (Auto) % Eos % (Auto) % Baso % (Auto) % Neut # (Auto) (1.40-6.50) K/uL Lymph # (Auto) (1.2-3.4) K/uL [place] # (Auto) (0.11-0.59) K/uL Eos # (Auto) (0-0.50) K/uL Baso # (Auto) (0-0.2) K/uL Immature Gran # (Auto) (0.01-0.20) K/uL Sodium (136-145) mmol/L Potassium (3.5-5.1) mmol/L Chloride (98-107) mmol/L Carbon Dioxide (21-32) mmol/L Anion Gap (3-11) BUN (6-23) mg/dl Creatinine (0.6-1.2) mg/dl Est Cr Clr Drug Dosing Est GFR ( Amer) ml/min Est GFR (Non-Af Amer) ml/min BUN/Creatinine Ratio (10-20) Glucose (70-99(Fasting)) mg/dl Calcium (8.6-10.3) mg/dl Total Bilirubin (0.2-1.0) mg/dl AST (13-39) U/L ALT (7-52) U/L Alkaline Phosphatase (34-104) U/L Total Protein (6.0-8.3) gm/dl Albumin (3.4-5.0) gm/dl Globulin (2.5-4.0) gm/dl Albumin/Globulin Ratio (0.9-2) Urine Color Urine Appearance (Clear) Urine pH (4.5-7.5) Ur Specific [place] (1.000-1.030) Urine Protein (Negative) Urine Glucose (UA) (Negative) Urine Ketones (Negative) Urine Blood (Negative) Urine Nitrite (Negative) Urine Bilirubin (Negative) Urine Urobilinogen (Negative) Ur Leukocyte Esterase (Negative) Urine WBC (Auto) (0-5) /hpf Urine RBC (Auto) (0-4) /hpf U Hyaline Cast (Auto) (0-5) /lpf U Epithel Cells (Auto) (0-5) /lpf Urine Bacteria (Auto) (Negative) Urine Crystals SARS-CoV-2, RNA, NAAT NEGATIVE (NEGATIVE) Administered Medications Meropenem 500 mg/ Syringe 10 mls @ 2 mls/min IV Q8H NEIL; Protocol Stop: 12/27/22 10:29 Last Admin: 12/17/22 11:18 Dose: 2 mls/min Documented By: BCN Insulin Aspart (Insulin Aspart Per Unit Charge) 0 units SC ACHS NEIL Stop: 01/16/23 13:29 Last Admin: 12/17/22 13:40 Dose: 2 units Documented By: XIMENA Co-signed By: ANAMIKA Discontinued Medications Miscellaneous (Patient's Height &/Or Weight Needed) 1 each N/A ONE STA Stop: 12/17/22 13:06 Last Admin: 12/17/22 13:20 Dose: 1 each Documented By: XIMENA Discharge Plan Visit Data Chief Complaint: Urinary Symptoms Stated Complaint: CONTINUING UTI ED Provider: Morena Phelan Discharge Problem: Acute UTI Patient Disposition: Admitted As Inpatient Discharge Instructions Interventions: ED Discharge Assessment Last Done: 12/17/22 12:42
[2022-12-17 10:01] LABS: Basophils # (auto) 0.02 K/uL (0-0.2); Basophils % (auto) 0.3 %; Hematocrit (blood only) 37.2 % (37.0-47.0); Hemoglobin 12.7 g/dl (12.0-16.0); Immature Granulocytes # (auto) 0.03 K/uL (0.01-0.20); Immature Granulocytes % (auto) 0.5 %; Lymphocytes # (auto) 2.11 K/uL (1.2-3.4); Lymphocytes % (auto) 34.3 %; Mean Corpuscular Hemoglobin 31.9 pg (25.0-34.0); Mean Corpuscular Hgb Conc 34.1 g/dL (32.0-36.0); Mean Corpuscular Volume 93.5 fL (80.0-100.0); Mean Platelet Volume 12.1 fL (9.4-12.4); Monocytes # (auto) 0.93 K/uL (0.11-0.59); Monocytes % (auto) 15.1 %; Neutrophils # (auto) 3.06 K/uL (1.40-6.50); Neutrophils % (auto) 49.8 %; Platelet Count 136 K/uL (130-400); RDW Coefficient of Variation 13.8 % (11.5-14.5); RDW Standard Deviation 47.4 fL (36.4-46.3); Red Blood Count 3.98 M/uL (4.20-5.40); White Blood Count 6.15 K/ul (4.8-10.8)
[2022-12-17 10:02] LABS: Appearance Urine Turbid (Clear); Bacteria Urine Automated 4+ (Negative); Bilirubin Urine Negative (Negative); Blood Urine 2+ (Negative); Color Urine Yellow; Epithelial Cell Urine Auto 20-30 /lpf (0-5); Glucose Urine UA Negative (Negative); Ketones Urine Negative (Negative); Leukocyte Esterase Urine 3+ (Negative); Nitrite Urine Positive (Negative); Protein Urine 1+ (Negative); Specific Gravity Urine 1.009 (1.000-1.030); Urobilinogen Urine Negative (Negative); WBC Urine Automated >30 /hpf (0-5); pH Urine 5.5 (4.5-7.5)
[2022-12-17 10:45] LABS: Alanine Aminotransferase 14 U/L (7-52); Albumin Globulin Ratio 1.3 (0.9-2); Albumin Level 3.5 gm/dl (3.4-5.0); Alkaline Phosphatase 60 U/L (34-104); Anion Gap 5 (3-11); Aspartate Aminotransferase 13 U/L (13-39); BUN Creatinine Ratio 19.3 (10-20); Bilirubin,Total 2.5 mg/dl (0.2-1.0); Blood Urea Nitrogen 23 mg/dl (6-23); Calcium 9.3 mg/dl (8.6-10.3); Carbon Dioxide 26 mmol/L (21-32); Chloride 107 mmol/L (98-107); Est GFR (African American) 49.9 ml/min; Est GFR (Non-African American) 43.1 ml/min; Globulin 2.8 gm/dl (2.5-4.0); Glucose 142 mg/dl (70-99(Fasting)); Potassium 3.9 mmol/L (3.5-5.1); Sodium 138 mmol/L (136-145); Total Protein 6.3 gm/dl (6.0-8.3)
[2022-12-17] MEDS: MEROPENEM 500 MG in SYRINGE 0 ML IV SCH ×2 (11:18→20:29)
--- NOTE | 2022-12-17 11:22 | History & Physical Report ---
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 continue Imbruvica (5) Chronic pancreatitis: Plan: Chronic (6) Paroxysmal A-fib: Plan: Chronic (7) Hypertension: Plan: Chronic and stable Continue Amlodipine, Losartan, metoprolol (8) Diabetes: Plan: Chronic and stable ISS Lantus 8U BID correction factor 50 and ratio 17 pharmacy for glycemic control History of Present Illness Chief Complaint: dysuria Primary Care Provider: Keith Hutchinson DO Lisa Payne is a 82 year old female with a past medical history of recurrent complicated ESBL UTI, CLL, hx of cervical cancer, chronic pancreatitis, HTN, HLD, DM, paroxysmal A Fib and bilateral hydronephrosis who presented to the ER today with complaints of progressive dysuria x 3 days. Patient was recently admited to [facility] for ESBL UTI and was treated with Meropenem and evaluated by Giselle SIMONS. Patient had a picc line placed and finished the Meropenem on 12/08/22. The picc line was then removed and she was doing well until 3 days ago. She states she has had progressive dysuria and urinary urgency and frequency x 3 days, worse today. She denies any gross hematuria, abdominal or flank pain. She admits to a low grade fever, chills and slight nausea with no vomiting. Patient was evaluated in the ER and urine looks infected and will be sent for C&S, blood cultures sent. Allergies Allergy/AdvReac Type Severity Reaction Status Date / Time amoxicillin Allergy Severe Swelling Verified 12/17/22 11:06 of Lip/Tongue/Throat cefazolin Allergy Severe Hives Unverified 12/17/22 11:06 egg Allergy Severe Gastrointestinal Unverified 12/17/22 11:06 Upset nut - unspecified Allergy Severe Swelling Verified 12/17/22 11:06 of Lip/Tongue/Throat pineapple Allergy Severe Swelling Verified 12/17/22 11:06 of Lip/Tongue/Throat nitrofurantoin Allergy Mild tachycardia Verified 12/17/22 11:06 aspirin Allergy Unknown INCREASES Verified 12/17/22 11:06 BLEEDING acetaminophen [From Tylenol] AdvReac Severe liver bleed Verified 12/17/22 11:06 duloxetine AdvReac Severe SEVERE Verified 12/17/22 11:06 VOMITING caffeine AdvReac Intermediate racing Verified 12/17/22 11:06 heart lisinopril AdvReac Intermediate cough, Verified 12/17/22 11:06 white "stuff" all over lungs Sulfa (Sulfonamide AdvReac Intermediate Tinnitis Verified 12/17/22 11:06 Antibiotics) Home Medications Medication Instructions Recorded Confirmed Type amlodipine 5 mg tablet 5 mg PO BID 06/24/20 12/17/22 History glucosamine sulf dipot 1 cap PO QDL 06/24/20 12/17/22 History chlr,msm,chond 550 mg-C 30 mg-aleena 1 mg capsule (Glucosamine Chondroitin) magnesium oxide 400 mg (241.3 mg 400 mg PO BID 06/24/20 12/17/22 History magnesium) tablet omega 5-hub-vvz-fish oil 1,200 mg 1 cap PO QDL 06/24/20 12/17/22 History (144 mg-216 mg) capsule (Fish Oil) ibrutinib 280 mg tablet (Imbruvica) 280 mg PO QAM 11/10/20 12/17/22 History multivitamin 1 tab PO QDL 11/10/20 12/17/22 History lancets 28 gauge (Prodigy Lancets) #300 ea 04/23/21 10/24/22 Rx ondansetron HCl 4 mg tablet 4 mg PO Q8H PRN Nausea #90 tabs 06/18/21 12/17/22 Rx losartan 25 mg tablet 25 mg PO DAILY 07/19/21 12/17/22 History garlic 100 mg tablet 100 mg PO DAILY 08/23/21 12/17/22 History metoprolol tartrate 25 mg tablet 12.5 mg PO BID #30 tabs 08/25/21 12/17/22 Rx cholecalciferol (vitamin D3) 25 1,000 unit PO QDL #30 tabs 11/13/21 12/17/22 Rx mcg (1,000 unit) tablet (Vitamin D3) insulin syr/ndl U100 half morena 0.3 #300 ea 11/29/21 10/24/22 Rx mL 31 gauge x 5/16" (BD Insulin Syringe Ultra-Fine (half unit)) ferrous sulfate 325 mg (65 mg 325 mg PO BID #180 tabs 12/11/21 12/17/22 Rx iron) tablet (FeroSul) ascorbic acid (vitamin C) 500 mg 500 mg PO BID 04/13/22 12/17/22 History tablet (Vitamin C) blood sugar diagnostic (Prodigy No #100 ea 04/18/22 10/24/22 Rx Coding strips) insulin glargine 100 unit/mL (3 26 unit (0.26 mL) subcut HS #15 mL 05/27/22 12/17/22 Rx mL) subcutaneous pen (Basaglar KwikPen U-100 Insulin) pen needle, diabetic 31 gauge x #100 ea 06/14/22 10/24/22 Rx 3/16" (BD Ultra-Fine Mini Pen Needle) potassium chloride 10 mEq 10 meq PO BID #180 caps 07/23/22 12/17/22 Rx capsule,extended release atorvastatin 10 mg tablet 10 mg PO HS #90 tabs 09/09/22 12/17/22 Rx insulin aspart U-100 100 unit/mL 7 unit (0.07 mL) subcut TID #30 mL 09/27/22 12/17/22 Rx subcutaneous solution (Novolog U-100 Insulin aspart) estradiol 0.01% (0.1 mg/gram) 0.5 appful vaginal .COMPLEX #42.5 10/09/22 12/17/22 Rx vaginal cream grams cholestyramine (with sugar) 4 gram 4 g PO BID 10/24/22 12/17/22 History powder for susp in a packet (Questran) flash glucose sensor (FreeStyle #1 ea 11/06/22 Rx Vicente 2 Sensor kit) flash glucose sensor (FreeStyle #1 ea 11/06/22 Rx Vicente 2 Sensor kit) buspirone 15 mg tablet 15 mg PO TID #270 tabs 11/26/22 12/17/22 Rx calcium carbonate 600 mg calcium 600 mg PO DAILY 11/29/22 12/17/22 History (1,500 mg) tablet (Calcium) cranberry fruit concentrate 125 mg 250 mg PO DAILY 11/29/22 12/17/22 History disintegrating tablet nystatin-triamcinolone 100,000 1 applic topical BID #30 grams 12/09/22 12/17/22 Rx unit/gram-0.1 % topical ointment carboxymethylcellulose sodium 1 % 2 drp ophthalmic (eye) BID PRN Dry 12/17/22 12/17/22 History eye liquid gel drops Eye(S) cyanocobalamin (vitamin B-12) 1,000 mcg PO DAILY 12/17/22 12/17/22 History 1,000 mcg tablet (Vitamin B-12) lactobacillus combination no.4 3 3,000 mmu cells PO DAILY 12/17/22 12/17/22 History billion cell capsule (Probiotic) omeprazole 20 mg capsule,delayed 20 mg PO DAILY 12/17/22 12/17/22 History release Past Med/Surg History Medical History Abnormal EKG Accidental acetaminophen overdose Acute GI bleeding Anxiety Bilateral hydronephrosis Cataract Cervical cancer Chronic pancreatitis CLL (chronic lymphocytic leukemia) Diabetes Diarrhea DVT prophylaxis Elevated bilirubin Glaucoma Guaiac positive stools History of cervical cancer Hypertension Hypokalemia [facility] current use of anticoagulant Metastatic cancer to intra-abdominal lymph nodes Paroxysmal A-fib Peripheral neuropathy Poisoning by acemetacin Recurrent UTI Transaminitis Urgency incontinence Surgical History H/O: hysterectomy S/P appendectomy S/P cataract surgery both eyes S/P cholecystectomy Family History Mother Heart disease Father Lung disease Prostate cancer Sister COVID Arthritis Uncle Myocardial infarction Heart disease Aunt Myocardial infarction Denies family history of Ovarian cancer Breast cancer Colorectal cancer Social History Smoking Status: Never smoker Second Hand Exposure: No; Do You Dip or Chew Tobacco: No; Hx Alcohol Use: No Hx Substance Use: No Preferred Language: Danish Communication Ability: Effective Visual Impairment: Partially Limited Hearing Ability: Normal Product Development Intern Required: No Beliefs That Will Affect Care: None marital status: Current Living Situation: Alone and Spouse Current Living Situation Comment: [place] style home 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 How many Children do You have: 1 Other Information That Helps Us Care for You: No other: 1 alive and 1 Feels Safe at Home: Yes Safety Concerns: Feels Safe At This Time Childhood Exposure to Second-Hand Smoke: No Dental Care, Regularly: No Physical Activity Frequency: Does not Exercise Seatbelt Use: always Sunscreen Use: No (hardly in sun d/t medicine ) Gender Identity: Female Assistive Devices: Glasses and Walker Review of Systems Constitutional: + chills, + fatigue and + weakness; no weight loss Respiratory: no cough, no chest congestion and no dyspnea Cardiovascular: no chest pain, no dyspnea, no palpitations, no lightheadedness, no syncope, no edema and no calf pain Gastrointestinal: + nausea; no abdominal pain, no early satiety and no vomiting Genitourinary: + dysuria, + urinary hesitancy and + urinary urgency; no flank pain Integumentary: no rash, no lesions and no new lesions Psychiatric: no hopelessness, no suicidal ideation, no anxiety and no confusion Endocrine: no polydipsia, no polyphagia and no polyuria Physical Exam Constitutional: WD/WN, vitals as above Neck: trachea midline, no thyromegaly Respiratory: normal respiratory effort, lungs clear to auscultation Cardiovascular: RRR, no murmur, no edema Gastrointestinal (Abdomen): normal bowel sounds, soft, nontender, no hepatosplenomegaly Skin: no rashes, warm and dry Psychiatric: A+Ox3, euthymic affect Results & Data Results & Data Vital Signs (Past 12 Hours) Vital Signs Temp Pulse Resp BP Pulse Ox O2 Del Method 12/17/22 10:59 74 15 97 Nasal Cannula 12/17/22 08:48 37.0 C 71 19 118/59 L 95 Room Air Laboratory Results Abnormal lab results 12/17/22 12/17/22 12/17/22 Range/Units 09:38 09:38 09:45 RBC 3.98 L (4.20-5.40) M/uL RDW Std Deviation 47.4 H (36.4-46.3) fL [place] # (Auto) 0.93 H (0.11-0.59) K/uL Glucose 142 H (70-99(Fasting)) mg/dl Total Bilirubin 2.5 H (0.2-1.0) mg/dl Urine Appearance Turbid A (Clear) Urine Protein 1+ H (Negative) Urine Blood 2+ H (Negative) Urine Nitrite Positive A (Negative) Ur Leukocyte Esterase 3+ H (Negative) Urine WBC (Auto) >30 H (0-5) /hpf Urine RBC (Auto) 5-10 H (0-4) /hpf U Epithel Cells (Auto) 20-30 H (0-5) /lpf Urine Bacteria (Auto) 4+ H (Negative) Supervising Physician Co-Signing Physician Notes I personally saw and examined the patient. I verified all chavira points and agree with Becca Stuart PA-C with the following exceptions and/or additions: 82 year old with recurrent UTIs. Again with dysuria. Only just finished course of ertapenem on December 08. Symptoms restarted 3 days ago. O/E HS RRR, Chest CTAB suprapubic tenderness on exam without guarding or rebound tenderness, no CVA tenderness A/P Complicated multi-resistant UTIs - pt is not septic. complex patient with bilateral hydronephrosis at CT from outside hospital, No CHRIST therefore no need to repeat imaging but will consult urology for ongoing advice. Consult ID - previously seen by [facility] therefore will consult this group. IV meropenem based on prior cultures in the interim. PG Care Time/CCT Total # of Minutes Spent Total Time Spent with Patient: Total time spent is greater than 50% in coordination of care (as documented) at patient's floor/unit and/or counseling patient: Coding Level of Care Code 37490 INT INP/OBS CARE 2/55MIN Diagnoses Complicated UTI (urinary tract infection) N39.0 Bilateral hydronephrosis N13.30 CLL (chronic lymphocytic leukemia) C91.90 Metastatic 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 Chronic pancreatitis K86.1 Paroxysmal A-fib I48.0 Hypertension I10 Diabetes E11.9
[2022-12-17] MEDS ORDERED: GLUCAGON FOR INJ 1 MG VIAL SQ PRN (12:53)
[2022-12-17] MEDS ORDERED: DEXTROSE 50% 50 ML SYRINGE IV PRN (12:53)
[2022-12-17] MEDS ORDERED: GLUCOSE 10 TAB/TUBE PO PRN (12:53)
[2022-12-17] MEDS ORDERED: PHARMACY GLYCEMIC MGMT CONSULT PRN (12:53)
[2022-12-17] MEDS ORDERED: CARBOHYDRATES FOR HYPOGLYCEMIA PO PRN (12:53)
[2022-12-17] MEDS ORDERED: GLUCOSE 40% GEL 15 GM TUBE PO PRN (12:53)
[2022-12-17] MEDS ORDERED: ARTIFICIAL TEARS OP PRN (13:01)
[2022-12-17] MEDS ORDERED: Patient's HEIGHT &/or WEIGHT Needed STA (13:05)
[2022-12-17] MEDS: INSULIN ASPART PER UNIT CHARGE SC SCH ×3 (13:40→20:28)
--- NOTE | 2022-12-17 13:41 | Pharmacy Report ---
Pharmacy Glycemic Short Note 2 - Date of Service December 17, 2022 - Glycemic Short BSG Results (Last 24 hours): 12/17/22 12/17/22 09:38 13:14 Glucose 142 H POC Glucose 110 H OUTPATIENT ANTIDIABETIC REGIMEN: * Insulin glargine 26 units HS * Insulin aspart 7 units TID * A1c pending ASSESSMENT: * Patient admitted with complicated UTI. PMH includes type 2 diabetes and metastatic cancer. BSGS 142-110 mg/dL since admission. * Weight based stress insulin calculation and stressed outpatient doses yield the same dosages. * Will start between stress of 1/2 and adjust as needed. PLAN FOR INPATIENT GLYCEMIC CONTROL: * Hold outpatient oral diabetes medications * Basal insulin * Lantus 15/25 units HS per scale * Bolus insulin * NovoLog per scale ACHS or Q6hrs while NPO * Goal Range: Low 120 mg/dL - High 160 mg/dL * Correction Factor: 40 mg/dL/unit * Nutritional / Prandial insulin per carb ratio of 1 unit per 12 grams CHO consumed
--- NOTE | 2022-12-17 13:43 | Urology Consultation ---
Date of Consultation December 17, 2022 Assessment & Plan (1) Recurrent UTI: (2) Bilateral hydronephrosis: 82 yo F with multiple comorbidities including recurrent UTI and chronic bilateral hydronephrosis, recently hospitalized at [facility] for E. coli ESBL infection admitted with suspected complicated UTI. - Afebrile, lab work reviewed - creatinine 1.19, no leukocytosis - Urine and blood cultures obtained and pending - She was started on Meropenem per previous culture and sensitivities on 11/25 - CTAP from 11/27 at outside facility noted bilateral hydronephrosis and bladder thickening and diverticula similar to previous exams - She has a small capacity, contracted bladder secondary to hx of pelvic radiation - Notable b/l hydronephrosis but creatinine is normal implying no obstruction, but reflux is certainly possible because of the small capacity/low compliance bladder - Given normal creatinine and afebrile status, stents are unlikely to offer any benefit - No acute surgical intervention warranted at this time - Can consider placement of Spears catheter for maximum drainage, but she may not tolerate - group home treatment options would be consideration of permanent urinary diversion - Continue supportive care, antibiotics, and management per primary service - will follow History of Present Illness Reason for Consultation: bilateral hydronephrosis, bladder diverticula Requesting Physician: Dr. Cantu Attending Physician: Kannan Cantu MD History of Present Illness This is an 82 year old female with PMHx of paroxysmal atrial fibrillation on anticoagulation, diabetes, hypertension, CLL, hx of cervical cancer with radiation to pelvis, incontinence, bilateral hydronephrosis and recurrent UTI admitted for suspected complicated urinary tract infection. She was recently admitted to [facility] for ESBL UTI. Urine culture 11/25 grew out E. coli ESBL. Per notes, she was treated with course of IV Meropenem and completed course on 12/08/2022. Unfortunately, she developed recurrent dysuria 3 days ago, which worsened today. On arrival to ED, she was afebrile and hemodynamically stable. Lab work showed creatinine 1.19, WBC 6.15, hemoglobin 12.7. Urinalysis showed 1+ protein, 2+ blood, positive nitrates, 3+ LE, >30 WBC, 5-10 RBC, 20-30 epithelials and 4+ bacteria. Urine and blood cultures obtained and pending. She had a CT A/P with IV contrast on 11/27/2022 at outside facility. Images are not available to independently review at this time. Per CT imaging report, kidneys showed bilateral hydroureteronephrosis, changes similar to prior examinations. Bladder wall thickening and diverticula formation similar to prior exam. She was started on meropenem in the ED. Urology consulted for bilateral hydronephrosis, bladder diverticula. She is known to our service, follows with Dr. Haji. Patient seen and examined at bedside this afternoon. She is awake, alert and sitting up at the side of the bed. She is voiding spontaneously. Reports dysuria, no hematuria. Incontinence at baseline. Reports low-grade fever at home. No chills. No nausea or vomiting. Denies abdominal, suprapubic or flank pain. Allergies Allergy/AdvReac Type Severity Reaction Status Date / Time amoxicillin Allergy Severe Swelling Verified 12/17/22 11:06 of Lip/Tongue/Throat cefazolin Allergy Severe Hives Unverified 12/17/22 11:06 egg Allergy Severe Gastrointestinal Unverified 12/17/22 11:06 Upset nut - unspecified Allergy Severe Swelling Verified 12/17/22 11:06 of Lip/Tongue/Throat pineapple Allergy Severe Swelling Verified 12/17/22 11:06 of Lip/Tongue/Throat nitrofurantoin Allergy Mild tachycardia Verified 12/17/22 11:06 aspirin Allergy Unknown INCREASES Verified 12/17/22 11:06 BLEEDING acetaminophen [From Tylenol] AdvReac Severe liver bleed Verified 12/17/22 11:06 duloxetine AdvReac Severe SEVERE Verified 12/17/22 11:06 VOMITING caffeine AdvReac Intermediate racing Verified 12/17/22 11:06 heart lisinopril AdvReac Intermediate cough, Verified 12/17/22 11:06 white "stuff" all over lungs Sulfa (Sulfonamide AdvReac Intermediate Tinnitis Verified 12/17/22 11:06 Antibiotics) Home Medications Medication Instructions Recorded Confirmed Type amlodipine 5 mg tablet 5 mg PO BID 06/24/20 12/17/22 History glucosamine sulf dipot 1 cap PO QDL 06/24/20 12/17/22 History chlr,msm,chond 550 mg-C 30 mg-aleena 1 mg capsule (Glucosamine Chondroitin) magnesium oxide 400 mg (241.3 mg 400 mg PO BID 06/24/20 12/17/22 History magnesium) tablet omega 2-ukv-ivn-fish oil 1,200 mg 1 cap PO QDL 06/24/20 12/17/22 History (144 mg-216 mg) capsule (Fish Oil) ibrutinib 280 mg tablet (Imbruvica) 280 mg PO QAM 11/10/20 12/17/22 History multivitamin 1 tab PO QDL 11/10/20 12/17/22 History lancets 28 gauge (Prodigy Lancets) #300 ea 04/23/21 10/24/22 Rx ondansetron HCl 4 mg tablet 4 mg PO Q8H PRN Nausea #90 tabs 06/18/21 12/17/22 Rx losartan 25 mg tablet 25 mg PO DAILY 07/19/21 12/17/22 History garlic 100 mg tablet 100 mg PO DAILY 08/23/21 12/17/22 History metoprolol tartrate 25 mg tablet 12.5 mg PO BID #30 tabs 08/25/21 12/17/22 Rx cholecalciferol (vitamin D3) 25 1,000 unit PO QDL #30 tabs 11/13/21 12/17/22 Rx mcg (1,000 unit) tablet (Vitamin D3) insulin syr/ndl U100 half morena 0.3 #300 ea 11/29/21 10/24/22 Rx mL 31 gauge x 5/16" (BD Insulin Syringe Ultra-Fine (half unit)) ferrous sulfate 325 mg (65 mg 325 mg PO BID #180 tabs 12/11/21 12/17/22 Rx iron) tablet (FeroSul) ascorbic acid (vitamin C) 500 mg 500 mg PO BID 04/13/22 12/17/22 History tablet (Vitamin C) blood sugar diagnostic (Prodigy No #100 ea 04/18/22 10/24/22 Rx Coding strips) insulin glargine 100 unit/mL (3 26 unit (0.26 mL) subcut HS #15 mL 05/27/22 12/17/22 Rx mL) subcutaneous pen (Basaglar KwikPen U-100 Insulin) pen needle, diabetic 31 gauge x #100 ea 06/14/22 10/24/22 Rx 3/16" (BD Ultra-Fine Mini Pen Needle) potassium chloride 10 mEq 10 meq PO BID #180 caps 07/23/22 12/17/22 Rx capsule,extended release atorvastatin 10 mg tablet 10 mg PO HS #90 tabs 09/09/22 12/17/22 Rx insulin aspart U-100 100 unit/mL 7 unit (0.07 mL) subcut TID #30 mL 09/27/22 12/17/22 Rx subcutaneous solution (Novolog U-100 Insulin aspart) estradiol 0.01% (0.1 mg/gram) 0.5 appful vaginal .COMPLEX #42.5 10/09/22 12/17/22 Rx vaginal cream grams cholestyramine (with sugar) 4 gram 4 g PO BID 10/24/22 12/17/22 History powder for susp in a packet (Questran) flash glucose sensor (FreeStyle #1 ea 11/06/22 Rx Vicente 2 Sensor kit) flash glucose sensor (FreeStyle #1 ea 11/06/22 Rx Vicente 2 Sensor kit) buspirone 15 mg tablet 15 mg PO TID #270 tabs 11/26/22 12/17/22 Rx calcium carbonate 600 mg calcium 600 mg PO DAILY 11/29/22 12/17/22 History (1,500 mg) tablet (Calcium) cranberry fruit concentrate 125 mg 250 mg PO DAILY 11/29/22 12/17/22 History disintegrating tablet nystatin-triamcinolone 100,000 1 applic topical BID #30 grams 12/09/22 12/17/22 Rx unit/gram-0.1 % topical ointment carboxymethylcellulose sodium 1 % 2 drp ophthalmic (eye) BID PRN Dry 12/17/22 12/17/22 History eye liquid gel drops Eye(S) cyanocobalamin (vitamin B-12) 1,000 mcg PO DAILY 12/17/22 12/17/22 History 1,000 mcg tablet (Vitamin B-12) lactobacillus combination no.4 3 3,000 mmu cells PO DAILY 12/17/22 12/17/22 History billion cell capsule (Probiotic) omeprazole 20 mg capsule,delayed 20 mg PO DAILY 12/17/22 12/17/22 History release Patient History Medical History Abnormal EKG Accidental acetaminophen overdose Acute GI bleeding Anxiety Bilateral hydronephrosis Cataract Cervical cancer Chronic pancreatitis CLL (chronic lymphocytic leukemia) Diabetes Diarrhea DVT prophylaxis Elevated bilirubin Glaucoma Guaiac positive stools History of cervical cancer Hypertension Hypokalemia group home current use of anticoagulant Metastatic cancer to intra-abdominal lymph nodes Paroxysmal A-fib Peripheral neuropathy Poisoning by acemetacin Recurrent UTI Transaminitis Urgency incontinence Surgical History H/O: hysterectomy S/P appendectomy S/P cataract surgery both eyes S/P cholecystectomy Family History Mother Heart disease Father Lung disease Prostate cancer Sister COVID Arthritis Uncle Myocardial infarction Heart disease Aunt Myocardial infarction Denies family history of Ovarian cancer Breast cancer Colorectal cancer Social History Smoking Status: Never smoker Second Hand Exposure: No; Do You Dip or Chew Tobacco: No; Hx Alcohol Use: No Hx Substance Use: No Preferred Language: Prydeinig Communication Ability: Effective Visual Impairment: Partially Limited Hearing Ability: Normal Recep Required: No Beliefs That Will Affect Care: None marital status: Current Living Situation: Alone and Spouse Current Living Situation Comment: [employer] style home current occupational status: retired current occupation: [email or web address] How many Children do You have: 1 Other Information That Helps Us Care for You: No other: 1 alive and 1 Feels Safe at Home: Yes Safety Concerns: Feels Safe At This Time Childhood Exposure to Second-Hand Smoke: No Dental Care, Regularly: No Physical Activity Frequency: Does not Exercise Seatbelt Use: always Sunscreen Use: No (hardly in sun d/t medicine ) Gender Identity: Female Assistive Devices: Glasses Review of Systems Review of Systems: All systems reviewed & are unremarkable except as noted in HPI & below Physical Exam Constitutional: well developed and well nourished; no acute distress Eyes: no scleral abnormality Neck: trachea midline Respiratory: normal respiratory effort; no respiratory distress and no labored breathing Cardiovascular: Extremities: no pedal edema Gastrointestinal (Abdomen): Inspection/Auscultation: abdomen normal to inspection; abdomen not distended Percussion/Palpation: abdomen soft; abdomen nontender Musculoskeletal: Head/Neck/Chest: normocephalic and head atraumatic Neurologic: moves all extremities and awake Psychiatric: Orientation: alert and oriented x 3 Genitourinary: no CVA tenderness Results & Data Vital Signs (Past 12 Hours) Vital Signs Temp Pulse Pulse Resp BP BP Pulse Ox 12/17/22 12:53 36.8 C 78 18 158/77 H 94 12/17/22 12:30 75 19 95 12/17/22 12:20 77 13 95 12/17/22 12:10 77 18 95 12/17/22 12:00 75 17 95 12/17/22 11:50 76 18 95 12/17/22 11:40 75 17 95 12/17/22 11:30 81 19 96 12/17/22 11:20 77 15 94 12/17/22 11:19 77 20 95 12/17/22 10:59 74 15 97 12/17/22 08:48 37.0 C 71 19 118/59 L 95 O2 Del Method 12/17/22 12:53 Room Air 12/17/22 12:30 12/17/22 12:20 12/17/22 12:10 12/17/22 12:00 12/17/22 11:50 12/17/22 11:40 12/17/22 11:30 12/17/22 11:20 12/17/22 11:19 12/17/22 10:59 Nasal Cannula 12/17/22 08:48 Room Air PG Care Time/CCT Total # of Minutes Spent Total Time Spent with Patient: Total time spent is greater than 50% in coordination of care (as documented) at patient's floor/unit and/or counseling patient: Coding Level of Care Code 07934 INT INP/OBS CARE 2/55MIN Diagnoses Recurrent UTI N39.0 Bilateral hydronephrosis N13.30 Time Spent (min) 56
[2022-12-17] MEDS: busPIRone 15 MG TAB PO SCH ×2 (14:30→20:32)
[2022-12-17] MEDS: ATORVASTATIN 10 MG TAB PO SCH (20:31)
[2022-12-17] MEDS: amLODIPine BESYLATE 5 MG TAB PO SCH (20:31)
[2022-12-17] MEDS: ENOXAPARIN INJ 40 MG/0.4 ML SYR SQ SCH (20:32)
[2022-12-17] MEDS: MAGNESIUM OXIDE 400 MG TAB PO SCH (20:32)
[2022-12-17] MEDS: METOPROLOL TARTRATE 25 MG TAB PO SCH (20:32)
[2022-12-17] MEDS ORDERED: LANTUS PER UNIT CHARGE SQ SCH (21:00)
[2022-12-17] MEDS: CHOLESTYRAMINE LIGHT 4 GM PKT PO SCH (21:39)
[2022-12-18] MEDS: MEROPENEM 500 MG in SYRINGE 0 ML IV SCH ×3 (03:55→19:44)
[2022-12-18 06:08] LABS: A calco-baum cmplx NotReported Not Detected (NotDetected); Bact fragilis Not Reported Not Detected (NotDetected); C auris Not Reported Not Detected (NotDetected); Calbicans Not Reported Not Detected (NotDetected); Candida glabrata Not Reported Not Detected (NotDetected); Candida krusei Not Reported Not Detected (NotDetected); Cneoformans/gatti Not Reported Not Detected (NotDetected); Cparapsilosis Not Reported Not Detected (NotDetected); Ctropicalis Not Reported Not Detected (NotDetected); E cloacae compx Not Reported Not Detected (NotDetected); Efaecalis Not Reported Not Detected (NotDetected); Efaecium Not Reported Not Detected (NotDetected); Enterobacterales Not Reported Not Detected (NotDetected); Escherichia coli Not Reported Not Detected (NotDetected); H influenzae Not Reported Not Detected (NotDetected); K aerogenes Not Reported Not Detected (NotDetected); Koxytoca Not Reported Not Detected (NotDetected); Kpneumoniae grp Not Reported Not Detected (NotDetected); Lmonocyt Not Reported Not Detected (NotDetected); N meningitidis Not Reported Not Detected (NotDetected); P aeruginosa Not Reported Not Detected (NotDetected); Proteus spp Not Reported Not Detected (NotDetected); Salmonella spp Not Reported Not Detected (NotDetected); Smarcescens Not Reported Not Detected (NotDetected); Staph lugdunensis Not Reported Not Detected (NotDetected); Staph spp. Not Reported Not Detected (NotDetected); Staphaureus Not Reported Not Detected (NotDetected); Staphepi Not Reported Not Detected (NotDetected); Stenmaltophilia Not Reported Not Detected (NotDetected); Strep agal(GrpB) Not Reported Not Detected (NotDetected); Strep pneum Not Reported Not Detected (NotDetected); Strep pyog (GrpA) Not Reported Not Detected (NotDetected); Strep spp Not Reported DETECTED (NotDetected)
[2022-12-18 06:11] LABS: Streptococcus spp DETECTED (NotDetected)
[2022-12-18 06:22] LABS: Basophils # (auto) 0.02 K/uL (0-0.2); Basophils % (auto) 0.4 %; Hematocrit (blood only) 32.6 % (37.0-47.0); Hemoglobin 11.1 g/dl (12.0-16.0); Immature Granulocytes # (auto) 0.02 K/uL (0.01-0.20); Immature Granulocytes % (auto) 0.4 %; Lymphocytes # (auto) 1.01 K/uL (1.2-3.4); Lymphocytes % (auto) 20.9 %; Mean Corpuscular Hemoglobin 31.5 pg (25.0-34.0); Mean Corpuscular Volume 92.6 fL (80.0-100.0); Mean Platelet Volume 12.3 fL (9.4-12.4); Monocytes # (auto) 0.62 K/uL (0.11-0.59); Monocytes % (auto) 12.8 %; Neutrophils # (auto) 3.17 K/uL (1.40-6.50); Neutrophils % (auto) 65.5 %; Platelet Count 113 K/uL (130-400); RDW Coefficient of Variation 13.5 % (11.5-14.5); RDW Standard Deviation 45.7 fL (36.4-46.3); Red Blood Count 3.52 M/uL (4.20-5.40); White Blood Count 4.84 K/ul (4.8-10.8)
[2022-12-18 06:29] LABS: BUN Creatinine Ratio 19.8 (10-20); Calcium 8.8 mg/dl (8.6-10.3); Creatinine Clr Calc Pharmacy 42.7 ml/min; Est GFR (African American) 48.9 ml/min; Est GFR (Non-African American) 42.2 ml/min; Magnesium 1.6 mg/dl (1.7-2.4); Potassium 3.8 mmol/L (3.5-5.1)
[2022-12-18 07:06] LABS: Estimated Average Glucose 163 mg/dl; Hemoglobin A1C 7.3 % (4.5-5.6)
[2022-12-18] MEDS: INSULIN ASPART PER UNIT CHARGE SC SCH ×4 (08:25→21:15)
[2022-12-18] MEDS ORDERED: MAGNESIUM SULFATE / D5W 1 GM/100 ML BAG IV ONE (08:50)
[2022-12-18] MEDS: METOPROLOL TARTRATE 25 MG TAB PO SCH ×2 (08:57→19:46)
[2022-12-18] MEDS: LOSARTAN POTASSIUM 25 MG TAB PO SCH (08:57)
[2022-12-18] MEDS: CYANOCOBALAMIN (B-12) 500 MCG TABLET PO SCH (08:57)
[2022-12-18] MEDS: MAGNESIUM OXIDE 400 MG TAB PO SCH ×2 (08:58→19:47)
[2022-12-18] MEDS: busPIRone 15 MG TAB PO SCH ×3 (08:58→19:45)
[2022-12-18] MEDS: amLODIPine BESYLATE 5 MG TAB PO SCH ×2 (08:59→19:44)
[2022-12-18] MEDS: CHOLESTYRAMINE LIGHT 4 GM PKT PO SCH ×2 (09:38→21:12)
--- NOTE | 2022-12-18 10:00 | Urology Progress Note ---
Date of Service December 18, 2022 Assessment & Plan (1) Bilateral hydronephrosis: (2) Recurrent UTI: Plan: 82 yo F with history of cervical ca s/p pelvic radiation, recurrent UTI, chronic bilateral hydronephrosis, and recent hospitalization at [facility] for E . coli ESBL infection admitted with suspected complicated UTI. - Afebrile with stable vitals - Pt subjectively improving - Today's labs - creatinine 1.21, no leukocytosis - Urine culture showing prelim gram negative bacilli - Blood cultures 1/2 gram positive cocci in chains - She was started on Meropenem per previous C&S on 11/25 - Follow cultures and narrow per sensitivity data when available - She has a small capacity, contracted bladder secondary to hx of pelvic radiation - Notable b/l hydronephrosis but creatinine is normal suggesting no obstruction, but reflux is certainly possible because of the small capacity/low compliance bladder - Given normal creatinine and afebrile status, stents are unlikely to offer any benefit at present - No acute surgical intervention warranted at this time - Can consider placement of Spears catheter for maximum drainage, but she may not tolerate - terminal operations supervisor treatment options would be consideration of permanent urinary diversion - Continue supportive care, antibiotics, and management per primary service - Keep outpatient urology follow-up next week as scheduled - will sign off, contact our service with any questions or concerns Admission and Anticipated Discharge Date Admission Date: December 17, 2022 Supervising Physician Co-Signing Physician Notes Discussed patient with CRYSTAL. Agree with plan. Subjective No acute issues overnight. She is awake, alert and sitting in bedside chair. Reports dysuria around midnight, but has since resolved. No hematuria. No abdominal, suprapubic or flank pain. Appetite is good. No nausea or vomiting. She has been ambulating in room. No additional concerns at this time. Review of Systems Constitutional: as per Subjective / HPI Gastrointestinal: as per Subjective / HPI Genitourinary: as per Subjective / HPI Physical Exam Constitutional: well developed and well nourished; no acute distress Respiratory: normal respiratory effort; no respiratory distress and no labored breathing Gastrointestinal (Abdomen): Inspection/Auscultation: abdomen normal to inspection; abdomen not distended Percussion/Palpation: abdomen soft; abdomen nontender Musculoskeletal: Head/Neck/Chest: normocephalic and head atraumatic Neurologic: moves all extremities and awake Psychiatric: Orientation: alert and oriented x 3 Results & Data Vital Signs (Past 12 Hours) Vital Signs Temp Pulse Resp BP Pulse Ox O2 Del Method 12/18/22 07:00 36.9 C 82 20 154/75 H 96 Room Air PG Care Time/CCT Total # of Minutes Spent Total Time Spent with Patient: Total time spent is greater than 50% in coordination of care (as documented) at patient's floor/unit and/or counseling patient: Coding Level of Care Code 37699 SUB INP/OBS CARE 1/25MIN Diagnoses Bilateral hydronephrosis N13.30 Recurrent UTI N39.0
--- NOTE | 2022-12-18 10:49 | Hospitalist Progress Note ---
Date of Service December 18, 2022 Assessment & Plan (1) Complicated UTI (urinary tract infection): Plan: Acute - unstable - moderate risk - consult Geraldoisinger ID (patient known to their group) - routinely follows with [facility] as outpatient - Continue Meropenem 500mg IV q8H - Await urine C&S - prelim GNB - PICC line removed recently following course of Ertapenem for ESBL E. coli - CBC reviewed, wbc normal at 4.84 - CMP reviewed, creatinine 1.2 which is seems to be within her baseline (1.0- 1.2) (2) Bacteremia: Plan: Acute - unstable - high risk - / blood cx thus far positive for GPC in chains, PCR +strep species - Await finalized results - ID already on consult - Source, ?skin, recent picc line v contaminant - If concern for true bacteremia, will need TTE & repeat cultures - Currently covered with Merrem (3) CLL (chronic lymphocytic leukemia): Plan: Chronic - stable - F/u with oncology (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: Plan: H/o cervical ca s/p radiation chronic - stable - continue Imbruvica - f/u with oncology (5) Paroxysmal A-fib: Plan: H/o PAF, HTN, HLD Chronic - stable - Continue Metoprolol, Losartan, and Amlodipine - Previously on Eliquis but pt reports being taken off d/t bleeding issues - Continue statin (6) Diabetes: Plan: Chronic and stable type 2 DM - Lantus 8U BID - Analog insulin ACHS w/ CF 50 and ratio 17 - pharmacy consulted for glycemic control - Continue accuchecks AC and HS Plan DVT ppx covered with Lovenox. Magnesium reviewed level low at 1.6, replacement ordered. Repeat labs in AM. Plan to be d/w Dr. Finch. of note, notified by RN this afternoon that patient pulled a slightly enlarged tick off of her left shoulder. Tick was placed in a sealed container and was still alive. RN indicated she felt there was a developing bull's eye rash. Ordered a one time dose of oral Doxycycline prophylactic dose of 200mg x1. Admission and Anticipated Discharge Date Admission Date: December 17, 2022 Subjective Patient was seen on daily rounds this morning. She is resting comfortably in be dside chair. Reports resolution in her dysuria. No n/v/d, f/c, headache, cp, dyspnea. Physical Exam Physical Exam: GENERAL: 82 yo well-developed, well-nourished elderly F. AAOx4. NAD. MOUTH: Dentition fair w/o any broken, necrotic, abscessed teeth observed LUNGS: Clear to auscultation bilaterally w/o W/R/R. CARDIOVASCULAR: Regular rate and rhythm ABDOMEN: Soft, non-tender and non-distended. Bowel sounds normoactive x 4 quad. EXTREMITIES: No edema. Non-tender. Peripheral pulses +2/4. SKIN: Some excoriations noted on b/l inner thighs w/o surrounding erythema, bleeding, or drainage Results & Data Results & Data Vital Signs (Past 12 Hours) Vital Signs Temp Pulse Resp BP Pulse Ox O2 Del Method 12/18/22 07:00 36.9 C 82 20 154/75 H 96 Room Air Laboratory Results 12/18/22 05:51 12/18/22 05:51 PG Care Time/CCT Total # of Minutes Spent Total Time Spent with Patient: Total time spent is greater than 50% in coordination of care (as documented) at patient's floor/unit and/or counseling patient: Coding Level of Care Code 31387 SUB INP/OBS CARE 3/50MIN Diagnoses Complicated UTI (urinary tract infection) N39.0 Bacteremia R78.81 CLL (chronic lymphocytic leukemia) C91.90 Metastatic 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 Paroxysmal A-fib I48.0 Diabetes E11.9
[2022-12-18] MEDS: CHOLECALCIFEROL 1,000 UNITS 25 MCG TAB PO SCH (12:32)
[2022-12-18] MEDS ORDERED: Nursing to Pharmacy Communication SCH (13:45)
[2022-12-18] MEDS ORDERED: DOXYCYCLINE HYCLATE 100 MG CAP PO STA (15:28)
[2022-12-18] MEDS: IBRUTINIB 280 MG PO SCH (15:59)
[2022-12-18] MEDS: ATORVASTATIN 10 MG TAB PO SCH (19:45)
[2022-12-18] MEDS: ENOXAPARIN INJ 40 MG/0.4 ML SYR SQ SCH (19:46)
[2022-12-18] MEDS: LANTUS PER UNIT CHARGE SQ SCH (21:16)
[2022-12-19] MEDS: MEROPENEM 500 MG in SYRINGE 0 ML IV SCH (03:08)
[2022-12-19 07:25] LABS: Basophils # (auto) 0.02 K/uL (0-0.2); Basophils % (auto) 0.4 %; Hematocrit (blood only) 34.1 % (37.0-47.0); Hemoglobin 11.7 g/dl (12.0-16.0); Immature Granulocytes # (auto) 0.06 K/uL (0.01-0.20); Immature Granulocytes % (auto) 1.2 %; Lymphocytes # (auto) 1.43 K/uL (1.2-3.4); Lymphocytes % (auto) 28.4 %; Mean Corpuscular Hemoglobin 31.9 pg (25.0-34.0); Mean Corpuscular Hgb Conc 34.3 g/dL (32.0-36.0); Mean Corpuscular Volume 92.9 fL (80.0-100.0); Mean Platelet Volume 12.3 fL (9.4-12.4); Neutrophils # (auto) 3.12 K/uL (1.40-6.50); Platelet Count 136 K/uL (130-400); RDW Coefficient of Variation 13.4 % (11.5-14.5); RDW Standard Deviation 45.5 fL (36.4-46.3); Red Blood Count 3.67 M/uL (4.20-5.40); White Blood Count 5.03 K/ul (4.8-10.8)
[2022-12-19 07:41] LABS: BUN Creatinine Ratio 20.8 (10-20); Calcium 9.2 mg/dl (8.6-10.3); Creatinine Clr Calc Pharmacy 51.2 ml/min; Est GFR (African American) 60.9 ml/min; Est GFR (Non-African American) 52.5 ml/min; Magnesium 1.7 mg/dl (1.7-2.4); Potassium 3.8 mmol/L (3.5-5.1)
[2022-12-19] MEDS: busPIRone 15 MG TAB PO SCH ×3 (08:18→20:49)
[2022-12-19] MEDS: METOPROLOL TARTRATE 25 MG TAB PO SCH ×2 (08:18→20:50)
[2022-12-19] MEDS: MAGNESIUM OXIDE 400 MG TAB PO SCH ×2 (08:18→20:50)
[2022-12-19] MEDS: LOSARTAN POTASSIUM 25 MG TAB PO SCH (08:18)
[2022-12-19] MEDS: CYANOCOBALAMIN (B-12) 500 MCG TABLET PO SCH (08:18)
[2022-12-19] MEDS: IBRUTINIB 280 MG PO SCH (08:19)
[2022-12-19] MEDS: amLODIPine BESYLATE 5 MG TAB PO SCH ×2 (08:19→20:48)
--- NOTE | 2022-12-19 08:33 | Pharmacy Report ---
Pharmacy Glycemic Short Note 2 - Date of Service December 19, 2022 - Glycemic Short BSG Results (Last 24 hours): 12/18/22 12/18/22 12/18/22 11:54 16:50 20:32 Glucose POC Glucose 184 H 155 H 174 H 12/19/22 12/19/22 06:44 08:01 Glucose 146 H POC Glucose 158 H OUTPATIENT ANTIDIABETIC REGIMEN: * Insulin glargine 26 units HS * Insulin aspart 7 units TID HbA1c: 7.3% (12/18/22) ASSESSMENT: 12/19/22 * BSGs have been reasonably controlled over past 48 hours (especially considering age and desire to limit hypoglycemia) * Fasting BSG of 158 mg/dL this morning - will plan to continue current basal i nsulin * Novolog was tightened slightly yesterday - will continue this and slightly lower upper end of goal range from 160 -> 150 mg/dL * Continues on meropenem for complicated UTI 12/17/22 * Patient admitted with complicated UTI. PMH includes type 2 diabetes and metastatic cancer. BSGS 142-110 mg/dL since admission. * Weight based stress insulin calculation and stressed outpatient doses yield the same dosages. * Will start between stress of 1/2 and adjust as needed. PLAN FOR INPATIENT GLYCEMIC CONTROL: * Basal insulin * Lantus 25 units SC HS * Bolus insulin * NovoLog per scale ACHS or Q6hrs while NPO * Goal Range: Low 120 mg/dL - High 150 mg/dL * Correction Factor: 35 mg/dL/unit * Nutritional / Prandial insulin per carb ratio of 1 unit per 10 grams CHO consumed
[2022-12-19] MEDS: INSULIN ASPART PER UNIT CHARGE SC SCH ×4 (08:46→21:23)
[2022-12-19] MEDS: CHOLESTYRAMINE LIGHT 4 GM PKT PO SCH ×2 (10:19→21:24)
--- NOTE | 2022-12-19 10:19 | Hospitalist Progress Note ---
Date of Service December 19, 2022 Assessment & Plan (1) Complicated UTI (urinary tract infection): Plan: Acute - unstable - moderate risk - consult Giselle ID (patient known to their group) - routinely follows with [facility] as outpatient - Started empirically based on Meropenem 500mg IV q8H - Urine Cx = Klebsiella pneumoniae (pansensitive) - Will de-escalate to Rocephin 2g IV daily - PICC line removed recently following course of Ertapenem for ESBL E. coli - CBC reviewed, wbc normal at 5.03 - CMP reviewed, creatinine 1.0 which is within her baseline (1.0-1.2) (2) Bacteremia: Plan: Acute - unstable - high risk - Now with 1/2 blood cultures positive for GPC in chains, PCR +strep species - Await finalized results - but given both sets positive, will need to treat as true bacteremia - ID already on consult, appreciate input - Source, ?skin v recent picc line - Was being covered with Merrem - but will de-escalate to Rocephin as above - Will treat x 2 weeks - obtain repeat blood cultures now - Will need midline once ensured that repeat blood cultures are negative (3) CLL (chronic lymphocytic leukemia): Plan: Chronic - stable - F/u with oncology (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: Plan: H/o cervical ca s/p radiation chronic - stable - continue Imbruvica - f/u with oncology (5) Paroxysmal A-fib: Plan: H/o PAF, HTN, HLD Chronic - stable - Continue Metoprolol, Losartan, and Amlodipine - Previously on Eliquis but pt reports being taken off d/t bleeding issues - Continue statin (6) Diabetes: Plan: Chronic and stable type 2 DM - Lantus 8U BID - Analog insulin ACHS w/ CF 50 and ratio 17 - pharmacy consulted for glycemic control - Continue accuchecks AC and HS (7) Tick bite: Plan: Acute/stable - low to moderate risk - Unknown how long tick was on, but pt believes <24 hours - Tick removed, minimally engorged and alive - Covered with a prophylactic dose of Doxycycline 200mg POx 1 on 12/18 Plan DVT ppx covered with Lovenox. Magnesium reviewed level now normal at 1.7. Plan as outlined above. Anticipate d/c in 24-48 hours pending repeat blood cultures. Plan d/w Dr. Sánchez. Admission and Anticipated Discharge Date Admission Date: December 18, 2022 Subjective Patient was seen on daily rounds this morning. She is resting comfortably in be d, offers no complaints/concerns. Pulled a tick off of back of left shoulder yesterday. Patient remains afebrile. No cp or dyspnea. Dysuria has completely resolved. Physical Exam Physical Exam: GENERAL: 82 yo well-developed, well-nourished elderly F. AAOx4. NAD. LUNGS: Clear to auscultation bilaterally w/o W/R/R. CARDIOVASCULAR: Regular rate and rhythm ABDOMEN: Soft, non-tender and non-distended. BS normoactive x 4 quad. EXTREMITIES: No edema. Non-tender. Peripheral pulses +2/4. SKIN: Some excoriations noted on b/l inner thighs w/o surrounding erythema, bleeding, or drainage. pea size area of erythema at tick bite site, no EM rash. Results & Data Results & Data Vital Signs (Past 12 Hours) Vital Signs Temp Pulse Resp BP Pulse Ox O2 Del Method 12/19/22 06:59 37 C 82 18 132/75 94 Room Air 12/18/22 23:15 37.1 C 76 18 117/52 L 93 Room Air Laboratory Results 12/19/22 06:44 12/19/22 06:44 PG Care Time/CCT Total # of Minutes Spent Total Time Spent with Patient: Total time spent is greater than 50% in coordination of care (as documented) at patient's floor/unit and/or counseling patient: Coding Level of Care Code 35976 SUB INP/OBS CARE 3/50MIN Diagnoses Complicated UTI (urinary tract infection) N39.0 Bacteremia R78.81 CLL (chronic lymphocytic leukemia) C91.90 Metastatic 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 Paroxysmal A-fib I48.0 Diabetes E11.9 Tick bite [id number].XXXA
[2022-12-19 10:32] LABS: A calco-baum cmplx NotReported Not Detected (NotDetected); Bact fragilis Not Reported Not Detected (NotDetected); C auris Not Reported Not Detected (NotDetected); Calbicans Not Reported Not Detected (NotDetected); Candida glabrata Not Reported Not Detected (NotDetected); Candida krusei Not Reported Not Detected (NotDetected); Cneoformans/gatti Not Reported Not Detected (NotDetected); Cparapsilosis Not Reported Not Detected (NotDetected); Ctropicalis Not Reported Not Detected (NotDetected); E cloacae compx Not Reported Not Detected (NotDetected); Efaecalis Not Reported Not Detected (NotDetected); Efaecium Not Reported Not Detected (NotDetected); Enterobacterales Not Reported Not Detected (NotDetected); Escherichia coli Not Reported Not Detected (NotDetected); H influenzae Not Reported Not Detected (NotDetected); K aerogenes Not Reported Not Detected (NotDetected); Koxytoca Not Reported Not Detected (NotDetected); Kpneumoniae grp Not Reported Not Detected (NotDetected); Lmonocyt Not Reported Not Detected (NotDetected); N meningitidis Not Reported Not Detected (NotDetected); P aeruginosa Not Reported Not Detected (NotDetected); Proteus spp Not Reported Not Detected (NotDetected); Salmonella spp Not Reported Not Detected (NotDetected); Smarcescens Not Reported Not Detected (NotDetected); Staph lugdunensis Not Reported Not Detected (NotDetected); Staph spp. Not Reported Not Detected (NotDetected); Staphaureus Not Reported Not Detected (NotDetected); Staphepi Not Reported Not Detected (NotDetected); Stenmaltophilia Not Reported Not Detected (NotDetected); Strep agal(GrpB) Not Reported Not Detected (NotDetected); Strep pneum Not Reported Not Detected (NotDetected); Strep pyog (GrpA) Not Reported Not Detected (NotDetected); Strep spp Not Reported Not Detected (NotDetected)
[2022-12-19] MEDS: cefTRIAXone SODIUM 2,000 MG in DEXTROSE 5% 50 ML IV SCH (11:54)
[2022-12-19] MEDS: CHOLECALCIFEROL 1,000 UNITS 25 MCG TAB PO SCH (11:55)
--- NOTE | 2022-12-19 13:34 | XCELERA ---
[id number]
[2022-12-19] MEDS: ENOXAPARIN INJ 40 MG/0.4 ML SYR SQ SCH (20:49)
[2022-12-19] MEDS: ATORVASTATIN 10 MG TAB PO SCH (21:22)
[2022-12-19] MEDS: LANTUS PER UNIT CHARGE SQ SCH (21:22)
[2022-12-20] MEDS ORDERED: LORazepam 0.5 MG TAB PO STA (08:40)
[2022-12-20] MEDS ORDERED: PHENAZOPYRIDINE HCL 100 MG TAB PO STA (08:43)
[2022-12-20] MEDS: INSULIN ASPART PER UNIT CHARGE SC SCH ×4 (09:04→20:55)
[2022-12-20] MEDS: busPIRone 15 MG TAB PO SCH ×3 (09:05→20:16)
[2022-12-20] MEDS: LOSARTAN POTASSIUM 25 MG TAB PO SCH (09:05)
[2022-12-20] MEDS: CYANOCOBALAMIN (B-12) 500 MCG TABLET PO SCH (09:05)
[2022-12-20] MEDS: METOPROLOL TARTRATE 25 MG TAB PO SCH ×2 (09:05→20:15)
[2022-12-20] MEDS: amLODIPine BESYLATE 5 MG TAB PO SCH ×2 (09:05→20:16)
[2022-12-20] MEDS: MAGNESIUM OXIDE 400 MG TAB PO SCH ×2 (09:05→20:16)
[2022-12-20] MEDS: IBRUTINIB 280 MG PO SCH (09:06)
[2022-12-20] MEDS: CHOLESTYRAMINE LIGHT 4 GM PKT PO SCH ×2 (11:04→21:56)
--- NOTE | 2022-12-20 12:38 | Hospitalist Progress Note ---
Date of Service December 20, 2022 Assessment & Plan (1) Complicated UTI (urinary tract infection): Plan: Acute - unstable - moderate risk - consult Giselle SIMONS (patient known to their group) - routinely follows with [facility] as outpatient - Started empirically based on Meropenem 500mg IV q8H - Urine Cx = Klebsiella pneumoniae (pansensitive) - Will de-escalate to Rocephin 2g IV daily - PICC line removed recently following course of Ertapenem for ESBL E. coli - CBC reviewed, wbc normal at 5.03 - CMP reviewed, creatinine 1.0 which is within her baseline (1.0-1.2) - Will repeat labs in AM (2) Bacteremia: Plan: Acute - unstable - high risk - Now with 1/2 blood cultures positive for GPC in chains, PCR +strep species - Await finalized results - but given both sets positive, will need to treat as true bacteremia - ID already on consult, appreciate input - Source, ?skin v recent picc line - Was being covered with Merrem - but will de-escalate to Rocephin as above - Will treat x 2 weeks - Awaiting repeat blood cultures - Will need midline once ensured that repeat blood cultures are negative (3) CLL (chronic lymphocytic leukemia): Plan: Chronic - stable - F/u with oncology (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: Plan: H/o cervical ca s/p radiation chronic - stable - continue Imbruvica - f/u with oncology (5) Paroxysmal A-fib: Plan: H/o PAF, HTN, HLD Chronic - stable - Continue Metoprolol, Losartan, and Amlodipine - Previously on Eliquis but pt reports being taken off d/t bleeding issues - Continue statin (6) Diabetes: Plan: Chronic and stable type 2 DM - Lantus 8U BID - Analog insulin ACHS w/ CF 50 and ratio 17 - pharmacy consulted for glycemic control - Continue accuchecks AC and HS (7) Tick bite: Plan: Acute/stable - low to moderate risk - Unknown how long tick was on, but pt believes <24 hours - Tick removed, minimally engorged and alive - Covered with a prophylactic dose of Doxycycline 200mg POx 1 on 12/18 Plan DVT ppx covered with Lovenox. Plan as outlined above. Anticipate d/c in 24-48 hours pending repeat blood cultures, midline hope to be placed tomorrow (awaiting the repat blood culture). Plan d/w Dr. Sánchez. Admission and Anticipated Discharge Date Admission Date: December 18, 2022 Subjective Patient was seen on daily rounds this morning. Patient was sitting up in bed and talking with her . Patient remains afebrile. No cp or dyspnea. Patient thought she had some slight dysuria this AM and is worried that her antibiotics changed yesterday. Echo EF revealed 60-65% and no vegetation and no valvular pathology. Repeat blood cultures are pending. One of 2 + yesterday, second still no growth at 48 hours and repeat blood cultures are pending. Hope to be able to discharge home tomorrow. Patient states she has appt with urology next week. Review of Systems 2 Constitutional: + fatigue and + weakness; no weight loss Respiratory: no cough, no chest congestion and no dyspnea Cardiovascular: no chest pain, no dyspnea, no palpitations, no lightheadedness, no syncope, no edema and no calf pain Gastrointestinal: + nausea; no abdominal pain, no early satiety and no vomiting Genitourinary: + dysuria, + urinary hesitancy and + urinary urgency; no flank pain Integumentary: no rash, no lesions and no new lesions Psychiatric: no hopelessness, no suicidal ideation, no anxiety and no confusion Endocrine: no polydipsia, no polyphagia and no polyuria Physical Exam Constitutional: WD/WN, vitals as above Neck: trachea midline, no thyromegaly Respiratory: normal respiratory effort, lungs clear to auscultation Cardiovascular: RRR, no murmur, no edema Gastrointestinal (Abdomen): normal bowel sounds, soft, nontender, no hepatosplenomegaly Skin: no rashes, warm and dry Psychiatric: A+Ox3, euthymic affect Results & Data Results & Data Vital Signs (Past 12 Hours) Vital Signs Temp Pulse Resp BP Pulse Ox O2 Del Method 12/20/22 07:33 37.4 C 74 18 171/82 H 97 Room Air PG Care Time/CCT Total # of Minutes Spent Total Time Spent with Patient: Total time spent is greater than 50% in coordination of care (as documented) at patient's floor/unit and/or counseling patient: Coding Level of Care Code 18592 SUB INP/OBS CARE 07/24MIN Diagnoses Complicated UTI (urinary tract infection) N39.0 Bacteremia R78.81 CLL (chronic lymphocytic leukemia) C91.90 Metastatic 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 Paroxysmal A-fib I48.0 Diabetes E11.9 Tick bite W57.XXXA
[2022-12-20] MEDS: cefTRIAXone SODIUM 2,000 MG in DEXTROSE 5% 50 ML IV SCH (12:47)
[2022-12-20] MEDS: CHOLECALCIFEROL 1,000 UNITS 25 MCG TAB PO SCH (12:48)
[2022-12-20] MEDS: ATORVASTATIN 10 MG TAB PO SCH (20:17)
[2022-12-20] MEDS: ENOXAPARIN INJ 40 MG/0.4 ML SYR SQ SCH (20:17)
[2022-12-20] MEDS: LANTUS PER UNIT CHARGE SQ SCH (20:54)
[2022-12-21 07:42] LABS: Basophils # (auto) 0.05 K/uL (0-0.2); Basophils % (auto) 0.9 %; Hematocrit (blood only) 34.1 % (37.0-47.0); Hemoglobin 11.6 g/dl (12.0-16.0); Immature Granulocytes # (auto) 0.15 K/uL (0.01-0.20); Immature Granulocytes % (auto) 2.8 %; Lymphocytes # (auto) 1.75 K/uL (1.2-3.4); Lymphocytes % (auto) 32.6 %; Mean Corpuscular Hemoglobin 31.8 pg (25.0-34.0); Mean Corpuscular Volume 93.4 fL (80.0-100.0); Mean Platelet Volume 12.2 fL (9.4-12.4); Monocytes # (auto) 0.51 K/uL (0.11-0.59); Monocytes % (auto) 9.5 %; Neutrophils # (auto) 2.91 K/uL (1.40-6.50); Neutrophils % (auto) 54.2 %; Platelet Count 127 K/uL (130-400); RDW Coefficient of Variation 13.2 % (11.5-14.5); RDW Standard Deviation 45.1 fL (36.4-46.3); Red Blood Count 3.65 M/uL (4.20-5.40); White Blood Count 5.37 K/ul (4.8-10.8)
[2022-12-21] MEDS: MAGNESIUM OXIDE 400 MG TAB PO SCH ×2 (07:51→20:51)
[2022-12-21] MEDS: METOPROLOL TARTRATE 25 MG TAB PO SCH ×2 (07:51→20:52)
[2022-12-21] MEDS: amLODIPine BESYLATE 5 MG TAB PO SCH ×2 (07:51→20:52)
[2022-12-21] MEDS: LOSARTAN POTASSIUM 25 MG TAB PO SCH (07:52)
[2022-12-21] MEDS: CYANOCOBALAMIN (B-12) 500 MCG TABLET PO SCH (07:53)
[2022-12-21] MEDS: busPIRone 15 MG TAB PO SCH ×3 (07:53→20:52)
[2022-12-21] MEDS: IBRUTINIB 280 MG PO SCH (07:54)
[2022-12-21 07:56] LABS: BUN Creatinine Ratio 21.5 (10-20); Calcium 9.2 mg/dl (8.6-10.3); Creatinine Clr Calc Pharmacy 48.3 ml/min; Est GFR (African American) 56.8 ml/min; Potassium 3.9 mmol/L (3.5-5.1)
[2022-12-21] MEDS: INSULIN ASPART PER UNIT CHARGE SC SCH ×4 (08:58→20:53)
[2022-12-21] MEDS: CHOLESTYRAMINE LIGHT 4 GM PKT PO SCH ×2 (10:42→22:31)
[2022-12-21] MEDS: cefTRIAXone SODIUM 2,000 MG in DEXTROSE 5% 50 ML IV SCH (12:39)
[2022-12-21] MEDS: CHOLECALCIFEROL 1,000 UNITS 25 MCG TAB PO SCH (12:42)
--- NOTE | 2022-12-21 16:31 | Hospitalist Progress Note ---
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 With chronic bilateral severe hydronephrosis Follows with urology, Dr. Haji. Discussion has been made of bladder diversion but she has declined that at this time. -Initially meropenem 500mg IV q8H due to history of ESBL E. coli - Urine Cx = Klebsiella pneumoniae (pansensitive) and then was de-escalated to Rocephin 2g IV daily -Would hold Imbruvica until after treatment for UTI is completed at a minimum -Appreciate urology consultation (2) Bacteremia: Plan: - with 1/2 blood culture sets positive for alpha Streptococcus as well as Actinomyces israelii -She did have a PICC line in place which is the likely source -She is also immunocompromised with CLL being treated with Imbruvica and therefore will treat with 2 weeks of IV antibiotics -Echocardiogram without evidence of valvular vegetation -Repeat blood cultures from 12/19 are no growth to date greater than 48 hours - ID already on consult, appreciate input -PICC line was removed -Continue Rocephin for total of 2 weeks from the time of sterile blood cultures- last day of treatment would be 01/02/2023 -Peripheral ultrasound-guided IV placed on 12/21 (3) CLL (chronic lymphocytic leukemia): Plan: Chronic - stable - F/u with oncology -Recommend holding Imbruvica -Advised patient to contact her oncologist to let him know that her medication is on hold (4) Paroxysmal A-fib: Plan: H/o PAF, HTN, HLD Chronic - stable - Continue Metoprolol, Losartan, and Amlodipine - Previously on Eliquis but pt reports being taken off d/t bleeding issues - Continue statin (5) Diabetes: Plan: Chronic and stable type 2 DM - Lantus and novolog insulin ACHS - pharmacy consulted for glycemic control - Continue accuchecks AC and HS (6) Tick bite: Plan: Acute/stable - low to moderate risk - Unknown how long tick was on, but pt believes <24 hours - Tick removed, minimally engorged and alive during this admission - Covered with a prophylactic dose of Doxycycline 200mg POx 1 on 12/18 Plan DVT ppx covered with Lovenox. Disposition-apparently, outpatient home IV antibiotics were not arranged as anticipated and discharge canceled for today. Prescription for ceftriaxone given to child support case officer today and hopeful that home IV antibiotics can be arranged to start on Friday and she can be discharged on Friday after her dose is given here Admission and Anticipated Discharge Date Admission Date: December 18, 2022 Subjective Patient feeling well. No further dysuria. Anxious for discharge. Physical Exam Constitutional: WD/WN, vitals as above Respiratory: normal respiratory effort, lungs clear to auscultation Cardiovascular: RRR, no murmur, no edema Gastrointestinal (Abdomen): normal bowel sounds, soft, nontender, no hepatosplenomegaly Psychiatric: A+Ox3, euthymic affect Results & Data Results & Data Vital Signs (Past 12 Hours) Vital Signs Temp Pulse Resp BP BP Pulse Ox O2 Del Method 12/21/22 16:01 36.8 C 76 16 137/83 95 Room Air 12/21/22 07:50 79 154/76 H 12/21/22 06:59 36.9 C 73 16 153/85 H 95 Room Air Laboratory Results CBC, BMP reviewed Blood cultures with alpha Streptococcus and actinomyces PG Care Time/CCT Total # of Minutes Spent Total Time Spent with Patient: Total time spent is greater than 50% in coordination of care (as documented) at patient's floor/unit and/or counseling patient: Coding Level of Care Code 10768 SUB INP/OBS CARE 2/35MIN Diagnoses Complicated UTI (urinary tract infection) N39.0 Bacteremia R78.81 CLL (chronic lymphocytic leukemia) C91.90 Paroxysmal A-fib I48.0 Diabetes E11.9 Tick bite W57.XXXA
[2022-12-21] MEDS: ATORVASTATIN 10 MG TAB PO SCH (20:52)
[2022-12-21] MEDS: LANTUS PER UNIT CHARGE SQ SCH (20:53)
[2022-12-21] MEDS: ENOXAPARIN INJ 40 MG/0.4 ML SYR SQ SCH (20:54)
[2022-12-22] MEDS: LOSARTAN POTASSIUM 25 MG TAB PO SCH (08:17)
[2022-12-22] MEDS: METOPROLOL TARTRATE 25 MG TAB PO SCH (08:18)
[2022-12-22] MEDS: CYANOCOBALAMIN (B-12) 500 MCG TABLET PO SCH (08:18)
[2022-12-22] MEDS: amLODIPine BESYLATE 5 MG TAB PO SCH (08:20)
[2022-12-22] MEDS: MAGNESIUM OXIDE 400 MG TAB PO SCH (08:21)
[2022-12-22] MEDS: busPIRone 15 MG TAB PO SCH ×2 (08:21→13:57)
[2022-12-22] MEDS: INSULIN ASPART PER UNIT CHARGE SC SCH ×2 (09:31→13:00)
[2022-12-22] MEDS: CHOLESTYRAMINE LIGHT 4 GM PKT PO SCH (10:33)
[2022-12-22] MEDS: CHOLECALCIFEROL 1,000 UNITS 25 MCG TAB PO SCH (12:54)
[2022-12-22] MEDS: cefTRIAXone SODIUM 2,000 MG in DEXTROSE 5% 50 ML IV SCH (12:57)
--- NOTE | 2022-12-22 14:17 | Discharge Summary ---
Discharge Summary Date of Service December 22, 2022 Notes For Next Care Provider Medication Changes From Visit Ceftriaxone 2000mg IV daily through 01/03/23 Hold Imbruvica until 01/04/23 Admission HPI Per Admitting Provider Lisa Payne is a 82 year old female with a past medical history of recurrent complicated ESBL UTI, CLL, hx of cervical cancer, chronic pancreatitis, HTN, HLD, DM, paroxysmal A Fib and bilateral hydronephrosis who presented to the ER today with complaints of progressive dysuria x 3 days. Patient was recently admited to [facility] for ESBL UTI and was treated with Meropenem and evaluated by Giselle SIMONS. Patient had a picc line placed and finished the Meropenem on 12/08/22. The picc line was then removed and she was doing well until 3 days ago. She states she has had progressive dysuria and urinary urgency and frequency x 3 days, worse today. She denies any gross hematuria, abdominal or flank pain. She admits to a low grade fever, chills and slight nausea with no vomiting. Patient was evaluated in the ER and urine looks infected and will be sent for C&S, blood cultures sent. 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 With chronic bilateral severe hydronephrosis Follows with urology, Dr. Haji. Discussion has been made of bladder diversion but she has declined that at this time. Also immunosuppressed with CLL and on daily Imbruvica; is also a diabetic -Initially meropenem 500mg IV q8H due to history of ESBL E. coli - Urine Cx = Klebsiella pneumoniae (pansensitive) and then was de-escalated to Rocephin 2g IV daily -Would hold Imbruvica until after treatment for UTI is completed at a minimum -Appreciate urology consultation (2) Bacteremia: - with 1/2 blood culture sets positive for alpha Streptococcus as well as Actinomyces israelii -She did have a PICC line in place which is the likely source -She is also immunocompromised with CLL being treated with Imbruvica and therefore will treat with 2 weeks of IV antibiotics -Echocardiogram without evidence of valvular vegetation -Repeat blood cultures from 12/19 are no growth to date greater than 72 hours - ID already on consult, appreciate input -PICC line was removed -Continue Rocephin for total of 2 weeks from the time of sterile blood cultures- last day of treatment would be 01/02/2023 -Peripheral ultrasound-guided IV placed on 12/21 -check once weekly CBC, CMP while on antibiotic therapy with results to PCP (3) CLL (chronic lymphocytic leukemia): Chronic - stable - F/u with oncology -Recommend holding Imbruvica -Advised patient to contact her oncologist to let him know that her medication is on hold (4) Paroxysmal A-fib: H/o PAF, HTN, HLD Chronic - stable - Continue Metoprolol, Losartan, and Amlodipine - Previously on Eliquis but pt reports being taken off d/t bleeding issues - Continue statin (5) Diabetes: Chronic and stable type 2 DM - Lantus and novolog insulin ACHS given while here-return to home doses on discharge HgbA1C well controlled at home at 7.3% (6) Tick bite: Acute/stable - low to moderate risk - Unknown how long tick was on, but pt believes <24 hours - Tick removed, minimally engorged and alive during this admission - Covered with a prophylactic dose of Doxycycline 200mg POx 1 on 12/18 Plan DVT ppx covered with Lovenox. Disposition-dc to home today with home health with home IV antibiotics Discharge Exam Constitutional WD/WN, vitals as above Respiratory normal respiratory effort, lungs clear to auscultation Cardiovascular RRR, no murmur, no edema US-guided PIV in left arm Gastrointestinal (Abdomen) normal bowel sounds, soft, nontender, no hepatosplenomegaly Psychiatric A+Ox3, euthymic affect Updated Medication List Medication Instructions Recorded Confirmed Type amlodipine 5 mg tablet 5 mg PO BID 06/24/20 12/17/22 History glucosamine sulf dipot 1 cap PO QDL 06/24/20 12/17/22 History chlr,msm,chond 550 mg-C 30 mg-aleena 1 mg capsule (Glucosamine Chondroitin) magnesium oxide 400 mg (241.3 mg 400 mg PO BID 06/24/20 12/17/22 History magnesium) tablet omega 2-exq-cwv-fish oil 1,200 mg 1 cap PO QDL 06/24/20 12/17/22 History (144 mg-216 mg) capsule (Fish Oil) ibrutinib 280 mg tablet (Imbruvica) 280 mg PO QAM 11/10/20 12/17/22 History multivitamin 1 tab PO QDL 11/10/20 12/17/22 History lancets 28 gauge (Prodigy Lancets) #300 ea 04/23/21 10/24/22 Rx ondansetron HCl 4 mg tablet 4 mg PO Q8H PRN Nausea #90 tabs 06/18/21 12/17/22 Rx losartan 25 mg tablet 25 mg PO DAILY 07/19/21 12/17/22 History garlic 100 mg tablet 100 mg PO DAILY 08/23/21 12/17/22 History metoprolol tartrate 25 mg tablet 12.5 mg PO BID #30 tabs 08/25/21 12/17/22 Rx cholecalciferol (vitamin D3) 25 1,000 unit PO QDL #30 tabs 11/13/21 12/17/22 Rx mcg (1,000 unit) tablet (Vitamin D3) insulin syr/ndl U100 half morena 0.3 #300 ea 11/29/21 10/24/22 Rx mL 31 gauge x 5/16" (BD Insulin Syringe Ultra-Fine (half unit)) ferrous sulfate 325 mg (65 mg 325 mg PO BID #180 tabs 12/11/21 12/17/22 Rx iron) tablet (FeroSul) ascorbic acid (vitamin C) 500 mg 500 mg PO BID 04/13/22 12/17/22 History tablet (Vitamin C) blood sugar diagnostic (Prodigy No #100 ea 04/18/22 10/24/22 Rx Coding strips) insulin glargine 100 unit/mL (3 26 unit (0.26 mL) subcut HS #15 mL 05/27/22 12/17/22 Rx mL) subcutaneous pen (Basaglar KwikPen U-100 Insulin) pen needle, diabetic 31 gauge x #100 ea 06/14/22 10/24/22 Rx 3/16" (BD Ultra-Fine Mini Pen Needle) potassium chloride 10 mEq 10 meq PO BID #180 caps 07/23/22 12/17/22 Rx capsule,extended release atorvastatin 10 mg tablet 10 mg PO HS #90 tabs 09/09/22 12/17/22 Rx insulin aspart U-100 100 unit/mL 7 unit (0.07 mL) subcut TID #30 mL 09/27/22 12/17/22 Rx subcutaneous solution (Novolog U-100 Insulin aspart) estradiol 0.01% (0.1 mg/gram) 0.5 appful vaginal .COMPLEX #42.5 10/09/22 12/17/22 Rx vaginal cream grams cholestyramine (with sugar) 4 gram 4 g PO BID 10/24/22 12/17/22 History powder for susp in a packet (Questran) flash glucose sensor (FreeStyle #1 ea 11/06/22 Rx Vicente 2 Sensor kit) flash glucose sensor (FreeStyle #1 ea 11/06/22 Rx Vicente 2 Sensor kit) buspirone 15 mg tablet 15 mg PO TID #270 tabs 11/26/22 12/17/22 Rx calcium carbonate 600 mg calcium 600 mg PO DAILY 11/29/22 12/17/22 History (1,500 mg) tablet (Calcium) cranberry fruit concentrate 125 mg 250 mg PO DAILY 11/29/22 12/17/22 History disintegrating tablet nystatin-triamcinolone 100,000 1 applic topical BID #30 grams 12/09/22 12/17/22 Rx unit/gram-0.1 % topical ointment carboxymethylcellulose sodium 1 % 2 drp ophthalmic (eye) BID PRN Dry 12/17/22 12/17/22 History eye liquid gel drops Eye(S) cyanocobalamin (vitamin B-12) 1,000 mcg PO DAILY 12/17/22 12/17/22 History 1,000 mcg tablet (Vitamin B-12) lactobacillus combination no.4 3 3,000 mmu cells PO DAILY 12/17/22 12/17/22 History billion cell capsule (Probiotic) omeprazole 20 mg capsule,delayed 20 mg PO DAILY 12/17/22 12/17/22 History release ceftriaxone 2 gram solution for 2 g IV DAILY 12 days #12 ea 12/21/22 Rx injection Hospital Stay Data Consultations 12/17/22 10:34 ED Decision to Admit Stat 12/17/22 12:04 Consult Infectious Diseases Stat 12/17/22 12:06 Consult Urology Routine 12/17/22 12:07 Consult Infectious Diseases Routine Procedures Performed ECHO Pending Results Patient Have Any Pending Studies at Discharge: Yes (Final blood culture results- no growth to date) Discharge Instructions Given to Patient (Per Discharging Provider) Please finish out the IV antibiotics with ceftriaxone 2000mg IV daily through 01/02/23. You should have weekly blood work drawn while on antibiotics with the results to be sent to Dr. Hutchinson for review. Please HOLD your Imbruvica until after your antibiotic course is complete. You should call your Oncologist to inform him that you had a bloodstream infection and are holding your medication. It was a pleasure taking care of you! Gita Cerda M.D. Total Time Total Time Spent Total Time Spent (In Minutes): 35 min Coding Level of Care Code 11498 INP/OBS DISCH >30 MIN Diagnoses Complicated UTI (urinary tract infection) N39.0 Bacteremia R78.81 CLL (chronic lymphocytic leukemia) C91.90 Paroxysmal A-fib I48.0 Diabetes E11.9 Tick bite W57.XXXA
== END 2022-12-22 14:57 | disposition home health service (06) | DRG 690 ==
LOC: ED 08:45 → 3W 08:45 → SUATTDRO 12:01 → 3W 12:42 → SUATTDRO 12-18 10:43

== ENCOUNTER 2023-01-25 03:38 | Inpatient (IN) ==
--- NOTE | 2023-01-25 04:04 | Emergency Department Note ---
Impression & Plan Complicated UTI (urinary tract infection), Dysuria ED Provider Note ED Provider Note NAME: ILIANA CALDWELL AGE:82 SEX: Female : 1940 ARRIVES VIA: Private vehicle INFORMANT: Patient ED PROVIDER(s): Nelsy Olivo DO CHIEF COMPLAINT: Burning with urination, concern for UTI HPI: This is an 82-year-old female presents emergency department due to concern for burning and discomfort with urination and concern for recurrent UTI. Patient has a history of recurrent UTIs and has grown out resistant organisms previously. Patient denies any history of other kidney problems. She denies any recent abdominal pain, back pain, fevers or chills. She states she was nauseated on Friday and did vomit, but had no other coming symptoms at that time. No recent change in bowel movements. Patient was hospitalized back in November with recurrent UTI. PAST MEDICAL HISTORY:See Below PAST SURGICAL HISTORY:See Below FAMILY HISTORY:See Below SOCIAL HISTORY:See Below HOME MEDICATIONS:See Below ALLERGIES:See Below VITALS:See Below PHYSICAL EXAMINATION: GENERAL: alert, well appearing, well nourished, no distress, non-toxic EYE EXAM: normal conjunctiva, PERRL and EOM's grossly intact OROPHARYNX: no exudate, no erythema, lips, buccal mucosa, and tongue normal and mucous membranes are moist NECK: supple, no nuchal rigidity, no adenopathy, non-tender LUNGS: Clear to auscultation. Normal chest wall mechanics, no w/r/r HEART: no murmurs, S1 normal and S2 normal ABDOMEN: abdomen soft, non-tender, normo-active bowel sounds, no masses, no rebound or guarding. BACK: Back is symmetrical on inspection and there is no deformity, no midline tenderness, no CVA tenderness. SKIN: no rashes, petechiae, orbruising UPPER EXTREMITIES: upper extremities are grossly normal. FROM, nml pulses b/l. LOWER EXTREMITIES: No pitting edema. FROM, nml pulses b/l. NEURO EXAM: Normal sensorium, cranial nerves II-XII grossly intact, normal speech, no facial droop,nogross weakness of arms, no gross weakness of legs. Gross sensation intact. No ataxia. Vital Signs: reviewed and remarkable Differential Diagnosis: Urethritis, UTI, pyelonephritis, bladder stone, ureterolithiasis, CHRIST, dehydration, yeast infection, as well as others were considered MEDICAL DECISION MAKING: This is an 82-year-old female presents emergency room due to concern for dysuria and recurrent UTI. Patient with long history of UTIs and resistant organisms. Patient was afebrile and vital signs stable. Labs are drawn and sent, IV established, urine specimen collected and sent to the lab. Patient was monitored on telemetry. She was started on gentle IV fluid rehydration. UA does appear to show evolving infection again. Patient's labs otherwise reassuring, creatinine 1.2. Patient had no other abdominal pain or worsening back pain to suggest ascending UTI/pyelonephritis or ureterolithiasis. Case discussed with on-call hospitalist for additional inpatient evaluation management. We discussed prior cultures and resistance patterns and decided on IV ertapenem. There were no reasonable options for an oral medication and close follow-up at this time given time of day, weekend, and patient's prior cultures and sensitivities. I do not suspect bacteremia/sepsis at this time. Patient verbalized understanding of results and was in agreement with the plan. Consultation(s): [id number]: Discussed with Dr. Sánchez. We discussed IV antibiotics and prior urine cultures. ER Treatment Provided: See below Diagnostics Interpreted By Me: -Cardiac Monitoring: An order was placed for continuous cardiac monitoring. The monitor shows a rate of 72 with normal sinus rhythm. -Laboratory studies: As stated above and show below. 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 Metastatic cancer to intra-abdominal lymph nodes Paroxysmal A-fib Peripheral neuropathy Poisoning by acemetacin Recurrent UTI Tick bite Transaminitis Urgency incontinence Surgical History H/O: hysterectomy S/P appendectomy S/P cataract surgery both eyes S/P cholecystectomy Family History Mother Heart disease Father Lung disease Prostate cancer Sister COVID Arthritis Uncle Myocardial infarction Heart disease Aunt Myocardial infarction Denies family history of Ovarian cancer Breast cancer Colorectal cancer Social History Smoking Status: Never smoker Second Hand Exposure: No; Do You Dip or Chew Tobacco: No; Hx Alcohol Use: No Hx Substance Use: No Preferred Language: Danish Communication Ability: Effective Visual Impairment: Partially Limited Hearing Ability: Normal Basic Acoustic Analyst Required: No Beliefs That Will Affect Care: None marital status: Current Living Situation: Alone and Spouse Current Living Situation Comment: JLGOV style home current occupational status: retired current occupation: [employer] How many Children do You have: 1 other: 1 alive and 1 Feels Safe at Home: Yes Childhood Exposure to Second-Hand Smoke: No Dental Care, Regularly: No Physical Activity Frequency: Does not Exercise Seatbelt Use: always Sunscreen Use: No (hardly in sun d/t medicine ) Gender Identity: Female Assistive Devices: Glasses and Walker Allergies Allergies Allergy/AdvReac Type Severity Reaction Status Date / Time amoxicillin Allergy Severe Swelling Verified 01/16/23 15:38 of Lip/Tongue/Throat cefazolin Allergy Severe Hives Unverified 01/16/23 15:38 egg Allergy Severe Gastrointestinal Unverified 01/16/23 15:38 Upset nut - unspecified Allergy Severe Swelling Verified 01/16/23 15:38 of Lip/Tongue/Throat pineapple Allergy Severe Swelling Verified 01/16/23 15:38 of Lip/Tongue/Throat nitrofurantoin Allergy Mild tachycardia Verified 01/16/23 15:38 aspirin Allergy Unknown INCREASES Verified 01/16/23 15:38 BLEEDING acetaminophen [From Tylenol] AdvReac Severe liver bleed Verified 01/16/23 15:38 duloxetine AdvReac Severe SEVERE Verified 01/16/23 15:38 VOMITING caffeine AdvReac Intermediate racing Verified 01/16/23 15:38 heart lisinopril AdvReac Intermediate cough, Verified 01/16/23 15:38 white "stuff" all over lungs Sulfa (Sulfonamide AdvReac Intermediate Tinnitis Verified 01/16/23 15:38 Antibiotics) Home Meds Home Medications Medication Instructions Recorded Confirmed amlodipine 5 mg tablet 5 mg PO BID 06/24/20 01/16/23 glucosamine sulf dipot 1 cap PO QDL 06/24/20 01/16/23 chlr,msm,chond 550 mg-C 30 mg-aleena 1 mg capsule (Glucosamine Chondroitin) magnesium oxide 400 mg (241.3 mg 400 mg PO BID 06/24/20 01/16/23 magnesium) tablet omega 7-ccb-uga-fish oil 1,200 mg 1 cap PO QDL 06/24/20 01/16/23 (144 mg-216 mg) capsule (Fish Oil) ibrutinib 280 mg tablet (Imbruvica) 280 mg PO QAM 11/10/20 01/16/23 multivitamin 1 tab PO QDL 11/10/20 01/16/23 losartan 25 mg tablet 25 mg PO DAILY 07/19/21 01/16/23 garlic 100 mg tablet 100 mg PO DAILY 08/23/21 01/16/23 ascorbic acid (vitamin C) 500 mg 500 mg PO BID 04/13/22 01/16/23 tablet (Vitamin C) calcium carbonate 600 mg calcium 600 mg PO DAILY 11/29/22 01/16/23 (1,500 mg) tablet (Calcium) cranberry fruit concentrate 125 mg 250 mg PO DAILY 11/29/22 01/16/23 disintegrating tablet carboxymethylcellulose sodium 1 % 2 drp ophthalmic (eye) BID PRN Dry 12/17/22 01/16/23 eye liquid gel drops Eye(S) cyanocobalamin (vitamin B-12) 1,000 mcg PO DAILY 12/17/22 01/16/23 1,000 mcg tablet (Vitamin B-12) lactobacillus combination no.4 3 3,000 mmu cells PO DAILY 12/17/22 01/16/23 billion cell capsule (Probiotic) omeprazole 20 mg capsule,delayed 20 mg PO DAILY 12/17/22 01/16/23 release vibegron 75 mg tablet (Gemtesa) 75 mg PO DAILY 01/03/23 01/16/23 cholestyramine (with sugar) 4 gram 4 g PO BID PRN 01/14/23 01/16/23 powder for susp in a packet (Questran) Previous Rx's Medication Instructions Recorded lancets 28 gauge (Prodigy Lancets) #300 ea 04/23/21 ondansetron HCl 4 mg tablet 4 mg PO Q8H PRN Nausea #90 tabs 06/18/21 metoprolol tartrate 25 mg tablet 12.5 mg PO BID #30 tabs 08/25/21 cholecalciferol (vitamin D3) 25 1,000 unit PO QDL #30 tabs 11/13/21 mcg (1,000 unit) tablet (Vitamin D3) insulin syr/ndl U100 half morena 0.3 #300 ea 11/29/21 mL 31 gauge x 5/16" (BD Insulin Syringe Ultra-Fine (half unit)) ferrous sulfate 325 mg (65 mg 325 mg PO BID #180 tabs 12/11/21 iron) tablet (FeroSul) blood sugar diagnostic (Prodigy No #100 ea 04/18/22 Coding strips) insulin glargine 100 unit/mL (3 26 unit (0.26 mL) subcut HS #15 mL 05/27/22 mL) subcutaneous pen (Basaglar KwikPen U-100 Insulin) pen needle, diabetic 31 gauge x #100 ea 06/14/22 3/16" (BD Ultra-Fine Mini Pen Needle) potassium chloride 10 mEq 10 meq PO BID #180 caps 07/23/22 capsule,extended release atorvastatin 10 mg tablet 10 mg PO HS #90 tabs 09/09/22 insulin aspart U-100 100 unit/mL 7 unit (0.07 mL) subcut TID #30 mL 09/27/22 subcutaneous solution (Novolog U-100 Insulin aspart) estradiol 0.01% (0.1 mg/gram) 0.5 appful vaginal .COMPLEX #42.5 10/09/22 vaginal cream grams flash glucose sensor (FreeStyle #1 ea 11/06/22 Vicente 2 Sensor kit) flash glucose sensor (FreeStyle #1 ea 11/06/22 Vicente 2 Sensor kit) buspirone 15 mg tablet 15 mg PO TID #270 tabs 11/26/22 nystatin-triamcinolone 100,000 1 applic topical BID #30 grams 12/09/22 unit/gram-0.1 % topical ointment methenamine hippurate 1 gram tablet 1 g PO Q12H 90 days #180 tabs 01/15/23 Results & Data (ED) Vital Signs Vital Signs - 24 hr 01/25/23 03:44 01/25/23 04:25 01/25/23 04:25 Temperature 36.5 C Temperature Source Temporal Artery Scan Pulse Rate 70 71 Pulse Rate from SpO2 Sensor Respiratory Rate 18 Respiratory Effort / Characteristics Non-Labored Spontaneous Respiratory Depth Normal Blood Pressure 138/66 144/70 H Blood Pressure Mean 90 101 Pulse Oximetry 96 Oxygen Delivery Method Room Air Sepsis Recent Fever Within 48 Hours No Sepsis New/Unexplained Change in Mental Status Yes Sepsis Action Taken by Nursing No Action Required 01/25/23 04:26 01/25/23 04:30 01/25/23 04:30 Temperature Temperature Source Pulse Rate 71 70 Pulse Rate from SpO2 Sensor 71 71 Respiratory Rate 18 17 Respiratory Effort / Characteristics Respiratory Depth Blood Pressure 141/65 H Blood Pressure Mean 103 Pulse Oximetry 96 96 Oxygen Delivery Method Sepsis Recent Fever Within 48 Hours Sepsis New/Unexplained Change in Mental Status Sepsis Action Taken by Nursing 01/25/23 05:00 Temperature Temperature Source Pulse Rate Pulse Rate from SpO2 Sensor Respiratory Rate Respiratory Effort / Characteristics Non-Labored Respiratory Depth Normal Blood Pressure Blood Pressure Mean Pulse Oximetry Oxygen Delivery Method Sepsis Recent Fever Within 48 Hours Sepsis New/Unexplained Change in Mental Status Sepsis Action Taken by Nursing Laboratory Data 01/25/23 04:13 01/25/23 04:13 Lab Results 01/25/23 01/25/23 01/25/23 Range/Units 03:50 04:13 04:13 WBC 9.02 (4.8-10.8) K/ul RBC 3.91 L (4.20-5.40) M/uL Hgb 12.4 (12.0-16.0) g/dl Hct 36.2 L (37.0-47.0) % MCV 92.6 (80.0-100.0) fL MCH 31.7 (25.0-34.0) pg MCHC 34.3 (32.0-36.0) g/dL RDW Std Deviation 43.3 (36.4-46.3) fL RDW Coeff of Matthew 12.9 (11.5-14.5) % Plt Count 155 (130-400) K/uL MPV 12.2 (9.4-12.4) fL Immature Gran % (Auto) 0.6 % Neut % (Auto) 72.2 % Lymph % (Auto) 19.1 % [place] % (Auto) 6.9 % Eos % (Auto) 0.9 % Baso % (Auto) 0.3 % Neut # (Auto) 6.52 H (1.40-6.50) K/uL Lymph # (Auto) 1.72 (1.2-3.4) K/uL [place] # (Auto) 0.62 H (0.11-0.59) K/uL Eos # (Auto) 0.08 (0-0.50) K/uL Baso # (Auto) 0.03 (0-0.2) K/uL Immature Gran # (Auto) 0.05 (0.01-0.20) K/uL Sodium (136-145) mmol/L Potassium (3.5-5.1) mmol/L Chloride (98-107) mmol/L Carbon Dioxide (21-32) mmol/L Anion Gap (3-11) BUN (6-23) mg/dl Creatinine (0.6-1.2) mg/dl Est Cr Clr Drug Dosing ml/min Est GFR ( Amer) ml/min Est GFR (Non-Af Amer) ml/min BUN/Creatinine Ratio (10-20) Glucose (70-99(Fasting)) mg/dl Calcium (8.6-10.3) mg/dl Total Bilirubin (0.2-1.0) mg/dl AST (13-39) U/L ALT (7-52) U/L Alkaline Phosphatase (34-104) U/L Total Protein (6.0-8.3) gm/dl Albumin (3.4-5.0) gm/dl Globulin (2.5-4.0) gm/dl Albumin/Globulin Ratio (0.9-2) Procalcitonin < 0.05 (0-0.5) ng/ml Urine Color Yellow Urine Appearance Turbid A (Clear) Urine pH 5.5 (4.5-7.5) Ur Specific [place] 1.013 (1.000-1.030) Urine Protein 1+ H (Negative) Urine Glucose (UA) 2+ H (Negative) Urine Ketones Negative (Negative) Urine Blood 2+ H (Negative) Urine Nitrite Negative (Negative) Urine Bilirubin Negative (Negative) Urine Urobilinogen Negative (Negative) Ur Leukocyte Esterase 3+ H (Negative) Urine WBC (Auto) >30 H (0-5) /hpf Urine RBC (Auto) 5-10 H (0-4) /hpf U Hyaline Cast (Auto) 0 (0-5) /lpf U Epithel Cells (Auto) 20-30 H (0-5) /lpf Urine Bacteria (Auto) 4+ H (Negative) 01/25/23 Range/Units 04:13 WBC (4.8-10.8) K/ul RBC (4.20-5.40) M/uL Hgb (12.0-16.0) g/dl Hct (37.0-47.0) % MCV (80.0-100.0) fL MCH (25.0-34.0) pg MCHC (32.0-36.0) g/dL RDW Std Deviation (36.4-46.3) fL RDW Coeff of Matthew (11.5-14.5) % Plt Count (130-400) K/uL MPV (9.4-12.4) fL Immature Gran % (Auto) % Neut % (Auto) % Lymph % (Auto) % [place] % (Auto) % Eos % (Auto) % Baso % (Auto) % Neut # (Auto) (1.40-6.50) K/uL Lymph # (Auto) (1.2-3.4) K/uL [place] # (Auto) (0.11-0.59) K/uL Eos # (Auto) (0-0.50) K/uL Baso # (Auto) (0-0.2) K/uL Immature Gran # (Auto) (0.01-0.20) K/uL Sodium 138 (136-145) mmol/L Potassium 4.0 (3.5-5.1) mmol/L Chloride 106 (98-107) mmol/L Carbon Dioxide 25 (21-32) mmol/L Anion Gap 7 (3-11) BUN 26 H (6-23) mg/dl Creatinine 1.21 H (0.6-1.2) mg/dl Est Cr Clr Drug Dosing 41.8 ml/min Est GFR ( Amer) 48.9 ml/min Est GFR (Non-Af Amer) 42.2 ml/min BUN/Creatinine Ratio 21.5 H (10-20) Glucose 161 H (70-99(Fasting)) mg/dl Calcium 9.3 (8.6-10.3) mg/dl Total Bilirubin 1.0 (0.2-1.0) mg/dl AST 15 (13-39) U/L ALT 16 (7-52) U/L Alkaline Phosphatase 80 (34-104) U/L Total Protein 6.5 (6.0-8.3) gm/dl Albumin 3.8 (3.4-5.0) gm/dl Globulin 2.7 (2.5-4.0) gm/dl Albumin/Globulin Ratio 1.4 (0.9-2) Procalcitonin (0-0.5) ng/ml Urine Color Urine Appearance (Clear) Urine pH (4.5-7.5) Ur Specific [place] (1.000-1.030) Urine Protein (Negative) Urine Glucose (UA) (Negative) Urine Ketones (Negative) Urine Blood (Negative) Urine Nitrite (Negative) Urine Bilirubin (Negative) Urine Urobilinogen (Negative) Ur Leukocyte Esterase (Negative) Urine WBC (Auto) (0-5) /hpf Urine RBC (Auto) (0-4) /hpf U Hyaline Cast (Auto) (0-5) /lpf U Epithel Cells (Auto) (0-5) /lpf Urine Bacteria (Auto) (Negative) Administered Medications Sodium Chloride (Nss 1000ml) 1,000 mls @ 125 mls/hr IV .Q8H NEIL Stop: 02/24/23 04:14 Last Admin: 01/25/23 04:24 Dose: 125 mls/hr Documented By: MANDO Discontinued Medications Ertapenem (Invanz) 10 mls @ 2 mls/min IV NOW STA Stop: 01/25/23 05:18 Last Admin: 01/25/23 05:28 Dose: 2 mls/min Documented By: MANDO Discharge Plan Visit Data Chief Complaint: Urinary Symptoms Stated Complaint: UTI SYMPTOMS SINCE YESTERDAY ED Provider: Nelsy Olivo Discharge Problem: Complicated UTI (urinary tract infection), Dysuria Forms Stand Alone Forms: My [facility] [employer] Prescriptions Prescriptions: No Action (DME) lancets [Prodigy Lancets] 28 gauge misc See Rx Instructions .Route Qty: 300 3RF Rx Instructions: As directed: check tid ondansetron HCl 4 mg tablet 4 mg PO Q8H PRN (Reason: Nausea) Qty: 90 1RF cholecalciferol (vitamin D3) [Vitamin D3] 25 mcg (1,000 unit) tablet 1,000 unit PO QDL Qty: 30 3RF (DME) BD Insulin Syringe (half unit) 0.3 mL 31 gauge x 5/16" syringe See Rx Instructions .Route Qty: 300 3RF Rx Instructions: use to give insulin three times daily ferrous sulfate [FeroSul] 325 mg (65 mg iron) tablet 325 mg PO BID Qty: 180 1RF Rx Instructions: Take with Vitamin C twice daily ascorbic acid (vitamin C) [Vitamin C] 500 mg tablet 500 mg PO BID Rx Instructions: Take with Ferrous Sulfate (Iron) twice daily (DME) Prodigy No Coding Strip See Rx Instructions .Route Qty: 100 5RF Rx Instructions: Patient tests 3 times daily and as needed when symtomatic insulin glargine [Basaglar KwikPen U-100 Insulin] 100 unit/mL (3 mL) insulin pen 26 unit SUBCUT HS Qty: 15 3RF (DME) pen needle, diabetic [BD Ultra-Fine Mini Pen Needle] 31 gauge x 3/16" needle See Rx Instructions .Route Qty: 100 3RF Rx Instructions: As directed potassium chloride 10 mEq capsule, extended release 10 meq PO BID Qty: 180 3RF atorvastatin 10 mg tablet 10 mg PO HS Qty: 90 1RF insulin aspart U-100 [Novolog U-100 Insulin aspart] 100 unit/mL solution 7 unit subcut TID Qty: 30 3RF estradiol 0.01 % (0.1 mg/gram) cream 0.5 appful vaginal .COMPLEX Qty: 42.5 1RF Rx Instructions: 0.5 appful vaginally twice weekly; for 14 days (DME) FreeStyle Vicente 2 Sensor Kit See Rx Instructions .Route Qty: 1 3RF Rx Instructions: As directed E11.9 (DME) FreeStyle Vicente 2 Sensor Kit See Rx Instructions .Route Qty: 1 2RF Rx Instructions: change q 14 days buspirone 15 mg tablet 15 mg PO TID Qty: 270 0RF methenamine hippurate 1 gram tablet 1 g PO Q12H 90 Days Qty: 180 3RF Rx Instructions: 01/13/23-Patient was not aware of this medications. She is going to call the Pharmacy an check status of medications Gemtesa 75 mg tablet 75 mg PO DAILY cranberry fruit concentrate 125 mg tablet,disintegrating 250 mg PO DAILY nystatin-triamcinolone 100,000-0.1 unit/gram-% ointment 1 applic topical BID Qty: 30 1RF losartan 25 mg tablet 25 mg PO DAILY cholestyramine (with sugar) [Questran] 4 gram powder in packet 4 g PO BID PRN Rx Instructions: administer w/meal; avoid other meds within 1hr before or 4-6hr after dose amlodipine 5 mg tablet 5 mg PO BID Glucosamine Chondroitin 550-30-1 mg Capsule 1 cap PO QDL magnesium oxide 400 mg (241.3 mg magnesium) tablet 400 mg PO BID omega 7-rcp-gdi-fish oil [Fish Oil] 1,200 (144-216) mg Capsule 1 cap PO QDL calcium carbonate [Calcium 600] 600 mg calcium (1,500 mg) tablet 600 mg PO DAILY cyanocobalamin (vitamin B-12) [Vitamin B-12] 1,000 mcg Tablet 1,000 mcg PO DAILY carboxymethylcellulose sodium 1 % Drops, Liquid Gel 2 drp OPHTHALMIC (EYE) BID PRN (Reason: Dry Eye(S)) Probiotic 3 billion cell Capsule 3,000 mmu cells PO DAILY Rx Instructions: administer with a meal omeprazole 20 mg Capsule,Delayed Release(Dr/Ec) 20 mg PO DAILY multivitamin Tablet 1 tab PO QDL Imbruvica 280 mg tablet 280 mg PO QAM Hold Instructions: Resume on 01/04/23. garlic 100 mg Tablet 100 mg PO DAILY metoprolol tartrate 25 mg Tablet 12.5 mg PO BID Qty: 30 0RF Referrals Referrals: Keith Hutchinson DO [Primary Care Provider] -
[2023-01-25] MEDS: SODIUM CHLORIDE 0.9% 1000ML 1,000 ML IV SCH ×2 (04:24→16:44)
[2023-01-25 04:40] LABS: Appearance Urine Turbid (Clear); Bacteria Urine Automated 4+ (Negative); Bilirubin Urine Negative (Negative); Blood Urine 2+ (Negative); Cast Urine Automated 0 /lpf (0-5); Color Urine Yellow; Epithelial Cell Urine Auto 20-30 /lpf (0-5); Glucose Urine UA 2+ (Negative); Ketones Urine Negative (Negative); Leukocyte Esterase Urine 3+ (Negative); Nitrite Urine Negative (Negative); Protein Urine 1+ (Negative); Specific Gravity Urine 1.013 (1.000-1.030); Urobilinogen Urine Negative (Negative); WBC Urine Automated >30 /hpf (0-5); pH Urine 5.5 (4.5-7.5)
[2023-01-25 04:47] LABS: Basophils # (auto) 0.03 K/uL (0-0.2); Basophils % (auto) 0.3 %; Eosinophils # (auto) 0.08 K/uL (0-0.50); Eosinophils % (auto) 0.9 %; Hematocrit (blood only) 36.2 % (37.0-47.0); Hemoglobin 12.4 g/dl (12.0-16.0); Immature Granulocytes # (auto) 0.05 K/uL (0.01-0.20); Immature Granulocytes % (auto) 0.6 %; Lymphocytes # (auto) 1.72 K/uL (1.2-3.4); Lymphocytes % (auto) 19.1 %; Mean Corpuscular Hemoglobin 31.7 pg (25.0-34.0); Mean Corpuscular Hgb Conc 34.3 g/dL (32.0-36.0); Mean Corpuscular Volume 92.6 fL (80.0-100.0); Mean Platelet Volume 12.2 fL (9.4-12.4); Monocytes # (auto) 0.62 K/uL (0.11-0.59); Monocytes % (auto) 6.9 %; Neutrophils # (auto) 6.52 K/uL (1.40-6.50); Neutrophils % (auto) 72.2 %; Platelet Count 155 K/uL (130-400); RDW Coefficient of Variation 12.9 % (11.5-14.5); RDW Standard Deviation 43.3 fL (36.4-46.3); Red Blood Count 3.91 M/uL (4.20-5.40); White Blood Count 9.02 K/ul (4.8-10.8)
--- NOTE | 2023-01-25 04:48 | History & Physical Report ---
Date of Service January 25, 2023 Assessment & Plan (1) Recurrent UTI: Plan: UTI Past UTI cultures: 01/03/2023: VRE sensitive to Dapto, resistant to vancomycin, tetracycline, ciprofloxacin, levofloxacin, ampicillin 12/17/2022: Pansensitive Klebsiella 09/16/2022: ESBL E. coli sensitive to ertapenem, meropenem, Zosyn. A amox/clav sensitive but amp/sulbactam resistant 07/09/2022: ESBL E. coli, Bactrim sensitive, Zosyn sensitive, meropenem/ertapenem sensitive. Otherwise intermediate or resistant. Sensitivities 01/23/2022: E. coli, ampicillin and Unasyn resistant 06/18/2021 and 07/19/2021: Enterobacter cloaca, Rocephin resistant Carbapenem sent 01/2021: Citrobacter casiano sensitive 06/24/2020: ESBL Proteus mirabilis sensitive to ertapenem/meropenem, Levaquin, Zosyn, and amikacin WBC: No leukocytosis Admitting creatinine:: Creatinine less than 1.1 at baseline, admitting creatinine 1.21 Procalcitonin negative Urine overtly infected appearing, UC pending Given multiple resistant infections as detailed above will admit on ertapenem pending culture results. No history of pseudomonal UTI. If speciated with VRE will need Dapto adjunct therapy added CLL With intra-abdominal lymph node metastasis Hold Imbrutinib while tx for active infection History of chronic pancreatitis Noted, continue to follow Paroxysmal A-fib continue metoprolol Eliquis previously discontinued due to bleeding Hypertension continue metoprolol, losartan, amlodipine, statin Diabetes type 2 Continue basal bolus insulin Glucose goal [id number] Glargine 26 units at bedtime, SSI based on basal requirements Pharmacy consulted for assistance in management alongside infection Glucose checks AC/HS DVT PPx: Lovenox Dispo: Med/Surg CODE: Full Diet: T2DM (2) CLL (chronic lymphocytic leukemia): (3) Paroxysmal A-fib: (4) Diabetes: History of Present Illness Primary Care Provider: Keith Hutchinson DO Lisa is an 82-year-old female with past medical history of recurrent drug- resistant UTIs who presents with dysuria and 1 episode of nausea with vomiting. 4-5 days ago one episode of Nausea vomiting, then felt ok until yesterday when she developed severe burning with urination similar to prior UTIs. 2x pyridium helped overnight, but dysuria returned and has been severe. NO fever, chills, sweats. Denies flank/back pain. Has been taking her imbrutinib, did nto bring with her as she expected it to be held. No chest pain or chest pressure. denies other sx Medical History: Reviewed Medications: Reviewed Surgical History: Reviewed Family history: Reviewed Allergies: Reviewed Social History: No tobacco, no etoh. Code Status: Full Code Allergies Allergy/AdvReac Type Severity Reaction Status Date / Time amoxicillin Allergy Severe Swelling Verified 01/16/23 15:38 of Lip/Tongue/Throat cefazolin Allergy Severe Hives Unverified 01/16/23 15:38 egg Allergy Severe Gastrointestinal Unverified 01/16/23 15:38 Upset nut - unspecified Allergy Severe Swelling Verified 01/16/23 15:38 of Lip/Tongue/Throat pineapple Allergy Severe Swelling Verified 01/16/23 15:38 of Lip/Tongue/Throat nitrofurantoin Allergy Mild tachycardia Verified 01/16/23 15:38 aspirin Allergy Unknown INCREASES Verified 01/16/23 15:38 BLEEDING acetaminophen [From Tylenol] AdvReac Severe liver bleed Verified 01/16/23 15:38 duloxetine AdvReac Severe SEVERE Verified 01/16/23 15:38 VOMITING caffeine AdvReac Intermediate racing Verified 01/16/23 15:38 heart lisinopril AdvReac Intermediate cough, Verified 01/16/23 15:38 white "stuff" all over lungs Sulfa (Sulfonamide AdvReac Intermediate Tinnitis Verified 01/16/23 15:38 Antibiotics) Home Medications Medication Instructions Recorded Confirmed Type amlodipine 5 mg tablet 5 mg PO BID 06/24/20 01/16/23 History glucosamine sulf dipot 1 cap PO QDL 06/24/20 01/16/23 History chlr,msm,chond 550 mg-C 30 mg-aleena 1 mg capsule (Glucosamine Chondroitin) magnesium oxide 400 mg (241.3 mg 400 mg PO BID 06/24/20 01/16/23 History magnesium) tablet omega 5-ozr-toh-fish oil 1,200 mg 1 cap PO QDL 06/24/20 01/16/23 History (144 mg-216 mg) capsule (Fish Oil) ibrutinib 280 mg tablet (Imbruvica) 280 mg PO QAM 05/14/21 07/20/23 History multivitamin 1 tab PO QDL 11/10/20 01/16/23 History lancets 28 gauge (Prodigy Lancets) #300 ea 04/23/21 01/16/23 Rx ondansetron HCl 4 mg tablet 4 mg PO Q8H PRN Nausea #90 tabs 06/18/21 01/16/23 Rx losartan 25 mg tablet 25 mg PO DAILY 07/19/21 01/16/23 History garlic 100 mg tablet 100 mg PO DAILY 08/23/21 01/16/23 History metoprolol tartrate 25 mg tablet 12.5 mg PO BID #30 tabs 08/25/21 01/16/23 Rx cholecalciferol (vitamin D3) 25 1,000 unit PO QDL #30 tabs 11/13/21 01/16/23 Rx mcg (1,000 unit) tablet (Vitamin D3) insulin syr/ndl U100 half morena 0.3 #300 ea 11/29/21 01/16/23 Rx mL 31 gauge x 5/16" (BD Insulin Syringe Ultra-Fine (half unit)) ferrous sulfate 325 mg (65 mg 325 mg PO BID #180 tabs 12/11/21 01/16/23 Rx iron) tablet (FeroSul) ascorbic acid (vitamin C) 500 mg 500 mg PO BID 04/13/22 01/16/23 History tablet (Vitamin C) blood sugar diagnostic (Prodigy No #100 ea 04/18/22 01/16/23 Rx Coding strips) insulin glargine 100 unit/mL (3 26 unit (0.26 mL) subcut HS #15 mL 05/27/22 01/16/23 Rx mL) subcutaneous pen (Basaglar KwikPen U-100 Insulin) pen needle, diabetic 31 gauge x #100 ea 06/14/22 01/16/23 Rx 3/16" (BD Ultra-Fine Mini Pen Needle) potassium chloride 10 mEq 10 meq PO BID #180 caps 07/23/22 01/16/23 Rx capsule,extended release atorvastatin 10 mg tablet 10 mg PO HS #90 tabs 09/09/22 01/16/23 Rx insulin aspart U-100 100 unit/mL 7 unit (0.07 mL) subcut TID #30 mL 09/27/22 01/16/23 Rx subcutaneous solution (Novolog U-100 Insulin aspart) estradiol 0.01% (0.1 mg/gram) 0.5 appful vaginal .COMPLEX #42.5 10/09/22 01/16/23 Rx vaginal cream grams flash glucose sensor (FreeStyle #1 ea 11/06/22 01/16/23 Rx Vicente 2 Sensor kit) flash glucose sensor (FreeStyle #1 ea 11/06/22 01/16/23 Rx Vicente 2 Sensor kit) buspirone 15 mg tablet 15 mg PO TID #270 tabs 11/26/22 01/16/23 Rx calcium carbonate 600 mg calcium 600 mg PO DAILY 11/29/22 01/16/23 History (1,500 mg) tablet (Calcium) cranberry fruit concentrate 125 mg 250 mg PO DAILY 11/29/22 01/16/23 History disintegrating tablet nystatin-triamcinolone 100,000 1 applic topical BID #30 grams 12/09/22 01/16/23 Rx unit/gram-0.1 % topical ointment carboxymethylcellulose sodium 1 % 2 drp ophthalmic (eye) BID PRN Dry 12/17/22 01/16/23 History eye liquid gel drops Eye(S) cyanocobalamin (vitamin B-12) 1,000 mcg PO DAILY 12/17/22 01/16/23 History 1,000 mcg tablet (Vitamin B-12) lactobacillus combination no.4 3 3,000 mmu cells PO DAILY 12/17/22 01/16/23 History billion cell capsule (Probiotic) omeprazole 20 mg capsule,delayed 20 mg PO DAILY 12/17/22 01/16/23 History release vibegron 75 mg tablet (Gemtesa) 75 mg PO DAILY 01/03/23 01/16/23 History cholestyramine (with sugar) 4 gram 4 g PO BID PRN 01/14/23 01/16/23 History powder for susp in a packet (Questran) methenamine hippurate 1 gram tablet 1 g PO Q12H 90 days #180 tabs 01/15/23 01/16/23 Rx Past Med/Surg History Medical History Abnormal EKG Accidental acetaminophen overdose Acute GI bleeding Anxiety Bilateral hydronephrosis Cataract Cervical cancer Chronic pancreatitis CLL (chronic lymphocytic leukemia) Diabetes Diarrhea DVT prophylaxis Elevated bilirubin Glaucoma Guaiac positive stools History of cervical cancer Hypertension 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 Metastatic cancer to intra-abdominal lymph nodes Paroxysmal A-fib Peripheral neuropathy Poisoning by acemetacin Recurrent UTI Transaminitis Urgency incontinence Surgical History H/O: hysterectomy S/P appendectomy S/P cataract surgery both eyes S/P cholecystectomy Family History Mother Heart disease Father Lung disease Prostate cancer Sister COVID Arthritis Uncle Myocardial infarction Heart disease Aunt Myocardial infarction Denies family history of Ovarian cancer Breast cancer Colorectal cancer Social History Smoking Status: Never smoker Second Hand Exposure: No; Do You Dip or Chew Tobacco: No; Hx Alcohol Use: No Hx Substance Use: No Preferred Language: [place]an Communication Ability: Effective Visual Impairment: Partially Limited Hearing Ability: Normal 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 Beliefs That Will Affect Care: None marital status: Current Living Situation: Alone and Spouse Current Living Situation Comment: [employer] style home current occupational status: retired current occupation: [employer] How many Children do You have: 1 other: 1 alive and 1 Feels Safe at Home: Yes Childhood Exposure to Second-Hand Smoke: No Dental Care, Regularly: No Physical Activity Frequency: Does not Exercise Seatbelt Use: always Sunscreen Use: No (hardly in sun d/t medicine ) Gender Identity: Female Assistive Devices: Glasses and Walker Review of Systems Review of Systems: All systems reviewed & are unremarkable except as noted in Subjective Physical Exam Physical Exam: General: A&Ox3. NAD. Cooperative. HEENT: Atraumatic, normocephalic. Pulm: CTAB A&P. -wheezes, -rales, -rhonchi. Symmetrical chest rise. No increased work of breathing. No respiratory distress. Cardiac: RRR, -mrg. Radial pulses intact and symmetrical. Abdominal: Nontender, nondistended, soft. BS present. Ext: Warm, dry, moves all extremities equally. Results & Data Results & Data Vital Signs (Past 12 Hours) Vital Signs Temp Pulse Resp BP Pulse Ox O2 Del Method 01/25/23 04:30 70 17 96 01/25/23 04:30 141/65 H 01/25/23 04:26 71 18 96 01/25/23 04:25 144/70 H 01/25/23 04:25 71 01/25/23 03:44 36.5 C 70 18 138/66 96 Room Air PG Care Time/CCT Total # of Minutes Spent Total Time Spent with Patient: Total time spent is greater than 50% in coordination of care (as documented) at patient's floor/unit and/or counseling patient: Coding Level of Care Code 80079 INT INP/OBS CARE 3/75MIN Diagnoses Recurrent UTI N39.0 CLL (chronic lymphocytic leukemia) C91.90 Paroxysmal A-fib I48.0 Diabetes E11.9
[2023-01-25 04:55] LABS: Albumin Globulin Ratio 1.4 (0.9-2); Albumin Level 3.8 gm/dl (3.4-5.0); BUN Creatinine Ratio 21.5 (10-20); Calcium 9.3 mg/dl (8.6-10.3); Creatinine Clr Calc Pharmacy 41.8 ml/min; Est GFR (African American) 48.9 ml/min; Est GFR (Non-African American) 42.2 ml/min; Globulin 2.7 gm/dl (2.5-4.0); Total Protein 6.5 gm/dl (6.0-8.3)
[2023-01-25] MEDS ORDERED: MEROPENEM 500 MG in SYRINGE 0 ML IV STA (05:08)
[2023-01-25] MEDS ORDERED: ERTAPENEM SODIUM 10 ML IV STA (05:14)
[2023-01-25] MEDS ORDERED: GLUCAGON FOR INJ 1 MG VIAL SQ PRN (08:20)
[2023-01-25] MEDS ORDERED: GLUCOSE 10 TAB/TUBE PO PRN (08:20)
[2023-01-25] MEDS ORDERED: GLUCOSE 40% GEL 15 GM TUBE PO PRN (08:20)
[2023-01-25] MEDS ORDERED: CARBOHYDRATES FOR HYPOGLYCEMIA PO PRN (08:20)
[2023-01-25] MEDS ORDERED: DEXTROSE 50% 50 ML SYRINGE IV PRN (08:20)
[2023-01-25] MEDS ORDERED: PHARMACY GLYCEMIC MGMT CONSULT PRN (08:20)
[2023-01-25] MEDS: INSULIN ASPART PER UNIT CHARGE SC SCH ×4 (09:09→20:49)
[2023-01-25] MEDS: MAGNESIUM OXIDE 400 MG TAB PO SCH ×2 (09:30→20:50)
[2023-01-25] MEDS: LOSARTAN POTASSIUM 25 MG TAB PO SCH (09:30)
[2023-01-25] MEDS: CALCIUM CARBONATE 1250MG TAB PO SCH (09:30)
[2023-01-25] MEDS: busPIRone 15 MG TAB PO SCH ×3 (09:30→20:51)
[2023-01-25] MEDS: amLODIPine BESYLATE 5 MG TAB PO SCH ×2 (09:30→20:51)
[2023-01-25] MEDS: VIBEGRON 75 MG TAB PO SCH (09:31)
[2023-01-25] MEDS: METOPROLOL TARTRATE 25 MG TAB PO SCH ×2 (09:31→20:50)
[2023-01-25] MEDS: PANTOprazole 40 MG TAB PO SCH (09:31)
--- NOTE | 2023-01-25 13:32 | Pharmacy Report ---
Pharmacy Glycemic Short Note 2 - Date of Service January 25, 2023 - Glycemic Short BSG Results (Last 24 hours): 01/25/23 01/25/23 01/25/23 04:13 08:00 11:57 Glucose 161 H POC Glucose 138 H 234 H OUTPATIENT ANTIDIABETIC REGIMEN: * Basaglar 26 units SC HS * Novolog 7 units SC TID HbA1c: 7.3% (12/18/22) ASSESSMENT: * is an 82 year old female admitted due to recurrent UTI (on ertapenem) * Reasonable outpatient glycemic control per most recent HbA1c * Initial regimen will mimic outpatient regimen/total daily dose - will keep Lantus once daily to correlate with outpatient regimen * Last dose of Lantus was reportedly last evening (01/24) PLAN FOR INPATIENT GLYCEMIC CONTROL: * Basal insulin * Lantus 25 units SQ HS * Bolus insulin * NovoLog per scale ACHS or Q6hrs while NPO * Goal Range: Low 110 mg/dL - High 140 mg/dL * Correction Factor: 25 mg/dL/unit * Nutritional / Prandial insulin per carb ratio of 1 unit per 8 grams CHO consumed
[2023-01-25] MEDS ORDERED: CHOLESTYRAMINE LIGHT 4 GM PKT PO PRN (17:24)
[2023-01-25] MEDS: ATORVASTATIN 10 MG TAB PO SCH (20:51)
[2023-01-25] MEDS ORDERED: NON-FORMULARY MEDICATION (Insulin Glargine [Basaglar Kwikpen U-100 Insulin] 100 unit/mL (3 SQ SCH (21:00)
[2023-01-25] MEDS: LANTUS PER UNIT CHARGE SC SCH (21:01)
[2023-01-26] MEDS: SODIUM CHLORIDE 0.9% 1000ML 1,000 ML IV SCH ×3 (00:41→16:46)
[2023-01-26] MEDS: ERTAPENEM SODIUM 1,000 MG in SYRINGE 0 ML IV SCH (05:13)
[2023-01-26] MEDS: ONDANSETRON 4 MG OD TAB PO PRN (05:28)
[2023-01-26 07:09] LABS: Basophils # (auto) 0.02 K/uL (0-0.2); Basophils % (auto) 0.3 %; Eosinophils # (auto) 0.06 K/uL (0-0.50); Hematocrit (blood only) 32.8 % (37.0-47.0); Hemoglobin 11.1 g/dl (12.0-16.0); Immature Granulocytes # (auto) 0.05 K/uL (0.01-0.20); Immature Granulocytes % (auto) 0.9 %; Lymphocytes # (auto) 1.15 K/uL (1.2-3.4); Lymphocytes % (auto) 19.8 %; Mean Corpuscular Hemoglobin 31.7 pg (25.0-34.0); Mean Corpuscular Hgb Conc 33.8 g/dL (32.0-36.0); Mean Corpuscular Volume 93.7 fL (80.0-100.0); Mean Platelet Volume 12.1 fL (9.4-12.4); Monocytes % (auto) 6.9 %; Neutrophils # (auto) 4.13 K/uL (1.40-6.50); Neutrophils % (auto) 71.1 %; Platelet Count 112 K/uL (130-400); RDW Coefficient of Variation 13.2 % (11.5-14.5); RDW Standard Deviation 44.7 fL (36.4-46.3); White Blood Count 5.81 K/ul (4.8-10.8)
[2023-01-26 07:36] LABS: Creatinine Clr Calc Pharmacy 56.7 ml/min; Est GFR (African American) 70.9 ml/min; Est GFR (Non-African American) 61.2 ml/min
[2023-01-26 07:37] LABS: BUN Creatinine Ratio 22.5 (10-20); Calcium 8.2 mg/dl (8.6-10.3); Potassium 3.4 mmol/L (3.5-5.1)
[2023-01-26] MEDS ORDERED: POTASSIUM CHLORIDE CRTAB 20 MEQ TABCR PO STA (09:04)
[2023-01-26] MEDS: amLODIPine BESYLATE 5 MG TAB PO SCH ×2 (09:17→21:17)
[2023-01-26] MEDS: busPIRone 15 MG TAB PO SCH ×3 (09:17→21:17)
[2023-01-26] MEDS: CALCIUM CARBONATE 1250MG TAB PO SCH (09:17)
[2023-01-26] MEDS: LOSARTAN POTASSIUM 25 MG TAB PO SCH (09:17)
[2023-01-26] MEDS: MAGNESIUM OXIDE 400 MG TAB PO SCH ×2 (09:17→21:17)
[2023-01-26] MEDS: PANTOprazole 40 MG TAB PO SCH (09:18)
[2023-01-26] MEDS: METOPROLOL TARTRATE 25 MG TAB PO SCH ×2 (09:18→21:17)
[2023-01-26] MEDS: VIBEGRON 75 MG TAB PO SCH (09:18)
[2023-01-26] MEDS: INSULIN ASPART PER UNIT CHARGE SC SCH ×4 (09:19→21:01)
--- NOTE | 2023-01-26 09:42 | Hospitalist Progress Note ---
Date of Service January 26, 2023 Assessment & Plan (1) Recurrent UTI: Plan: UTI Past UTI cultures: 01/03/2023: VRE sensitive to Dapto, resistant to vancomycin, tetracycline, ciprofloxacin, levofloxacin, ampicillin 12/17/2022: Pansensitive Klebsiella 09/16/2022: ESBL E. coli sensitive to ertapenem, meropenem, Zosyn. A amox/clav sensitive but amp/sulbactam resistant 07/09/2022: ESBL E. coli, Bactrim sensitive, Zosyn sensitive, meropenem/ertapenem sensitive. Otherwise intermediate or resistant. Sensitivities 01/23/2022: E. coli, ampicillin and Unasyn resistant 06/18/2021 and 07/19/2021: Enterobacter cloaca, Rocephin resistant Carbapenem sent 01/2021: Citrobacter casiano sensitive 06/24/2020: ESBL Proteus mirabilis sensitive to ertapenem/meropenem, Levaquin, Zosyn, and amikacin WBC: No leukocytosis Admitting creatinine:: Creatinine less than 1.1 at baseline, admitting creatinine 1.21 Procalcitonin negative Urine overtly infected appearing, UC pending Given multiple resistant infections as detailed above will admit on ertapenem pending culture results. No history of pseudomonal UTI. If speciated with VRE will need Dapto adjunct therapy added Awaiting for culture results: currently showing E. coli, pending sensitivities CLL With intra-abdominal lymph node metastasis Hold Imbrutinib while tx for active infection History of chronic pancreatitis Noted, continue to follow Paroxysmal A-fib continue metoprolol Eliquis previously discontinued due to bleeding Hypertension continue metoprolol, losartan, amlodipine, statin Diabetes type 2 Continue basal bolus insulin Glucose goal [id number] Glargine 26 units at bedtime, SSI based on basal requirements Pharmacy consulted for assistance in management alongside infection Glucose checks AC/HS DVT PPx: Lovenox Dispo: Med/Surg CODE: Full Diet: T2DM (2) CLL (chronic lymphocytic leukemia): (3) Paroxysmal A-fib: (4) Diabetes: Admission and Anticipated Discharge Date Admission Date: January 25, 2023 Subjective 82 yo female reports feeling well. Urinary symptoms have improved, dysuria is now mild. Patient did have some nausea earlier in the morning but this has susbsided. Review of Systems Review of Systems: All systems reviewed & are unremarkable except as noted in HPI & below Physical Exam Physical Exam: General: A&Ox3. NAD. Cooperative. HEENT: Atraumatic, normocephalic. Pulm: CTAB A&P. -wheezes, -rales, -rhonchi. Symmetrical chest rise. No increased work of breathing. No respiratory distress. Cardiac: RRR, -mrg. Radial pulses intact and symmetrical. Abdominal: Nontender, nondistended, soft. BS present. Ext: Warm, dry, moves all extremities equally. Results & Data Results & Data Vital Signs (Past 12 Hours) Vital Signs Temp Pulse Resp BP Pulse Ox O2 Del Method 01/26/23 06:57 36.5 C 75 16 146/74 H 94 Room Air 01/25/23 23:00 36.6 C 73 20 128/68 95 Room Air PG Care Time/CCT Total # of Minutes Spent Total Time Spent with Patient: Total time spent is greater than 50% in coordination of care (as documented) at patient's floor/unit and/or counseling patient: Coding Level of Care Code 03919 SUB INP/OBS CARE 2/35MIN Diagnoses Recurrent UTI N39.0 CLL (chronic lymphocytic leukemia) C91.90 Paroxysmal A-fib I48.0 Diabetes E11.9
[2023-01-26] MEDS: LANTUS PER UNIT CHARGE SC SCH (21:17)
[2023-01-26] MEDS: POTASSIUM CHLORIDE 10 MEQ TABCR PO SCH (21:17)
[2023-01-26] MEDS: ATORVASTATIN 10 MG TAB PO SCH (21:17)
[2023-01-26] MEDS: ACETAMINOPHEN 325 MG TAB PO PRN (23:42)
[2023-01-27] MEDS: SODIUM CHLORIDE 0.9% 1000ML 1,000 ML IV SCH ×3 (00:43→15:50)
[2023-01-27] MEDS: ERTAPENEM SODIUM 1,000 MG in SYRINGE 0 ML IV SCH (05:21)
[2023-01-27] MEDS: ONDANSETRON 4 MG OD TAB PO PRN (05:29)
[2023-01-27] MEDS: ACETAMINOPHEN 325 MG TAB PO PRN (06:12)
[2023-01-27] MEDS: PHENAZOPYRIDINE HCL 100 MG TAB PO PRN ×2 (06:12→14:37)
[2023-01-27 06:21] LABS: Basophils # (auto) 0.03 K/uL (0-0.2); Basophils % (auto) 0.5 %; Eosinophils # (auto) 0.05 K/uL (0-0.50); Eosinophils % (auto) 0.8 %; Hematocrit (blood only) 31.7 % (37.0-47.0); Hemoglobin 10.9 g/dl (12.0-16.0); Immature Granulocytes % (auto) 1.7 %; Lymphocytes # (auto) 1.13 K/uL (1.2-3.4); Lymphocytes % (auto) 18.7 %; Mean Corpuscular Hemoglobin 31.9 pg (25.0-34.0); Mean Corpuscular Hgb Conc 34.4 g/dL (32.0-36.0); Mean Corpuscular Volume 92.7 fL (80.0-100.0); Mean Platelet Volume 11.9 fL (9.4-12.4); Monocytes # (auto) 0.37 K/uL (0.11-0.59); Monocytes % (auto) 6.1 %; Neutrophils # (auto) 4.35 K/uL (1.40-6.50); Neutrophils % (auto) 72.2 %; Platelet Count 110 K/uL (130-400); RDW Coefficient of Variation 13.1 % (11.5-14.5); Red Blood Count 3.42 M/uL (4.20-5.40); White Blood Count 6.03 K/ul (4.8-10.8)
[2023-01-27 06:36] LABS: Calcium 8.4 mg/dl (8.6-10.3); Creatinine Clr Calc Pharmacy 53.1 ml/min; Est GFR (African American) 65.6 ml/min; Est GFR (Non-African American) 56.6 ml/min; Potassium 3.8 mmol/L (3.5-5.1)
[2023-01-27] MEDS: LOSARTAN POTASSIUM 25 MG TAB PO SCH (08:00)
[2023-01-27] MEDS: METOPROLOL TARTRATE 25 MG TAB PO SCH (08:01)
[2023-01-27] MEDS: CALCIUM CARBONATE 1250MG TAB PO SCH (08:01)
[2023-01-27] MEDS: MAGNESIUM OXIDE 400 MG TAB PO SCH (08:01)
[2023-01-27] MEDS: busPIRone 15 MG TAB PO SCH ×2 (08:01→14:37)
[2023-01-27] MEDS: amLODIPine BESYLATE 5 MG TAB PO SCH (08:01)
[2023-01-27] MEDS: PANTOprazole 40 MG TAB PO SCH (08:02)
[2023-01-27] MEDS: VIBEGRON 75 MG TAB PO SCH (08:03)
[2023-01-27] MEDS: POTASSIUM CHLORIDE 10 MEQ TABCR PO SCH (08:03)
[2023-01-27] MEDS: INSULIN ASPART PER UNIT CHARGE SC SCH ×3 (08:05→17:08)
[2023-01-27] MEDS ORDERED: PANTOprazole 40 MG TAB PO SCH (09:00)
--- NOTE | 2023-01-27 14:24 | Pharmacy Report ---
Pharmacy Glycemic Short Note 2 - Date of Service January 27, 2023 - Glycemic Short BSG Results (Last 24 hours): 01/26/23 01/26/23 01/27/23 17:02 20:27 02:23 Glucose POC Glucose 127 H 127 H 147 H 01/27/23 01/27/23 01/27/23 05:57 07:45 11:46 Glucose 174 H POC Glucose 161 H 115 H OUTPATIENT ANTIDIABETIC REGIMEN: * Basaglar 26 units SC HS * Novolog 7 units SC TID HbA1c: 7.3% (12/18/22) ASSESSMENT: * BSGs yesterday were [phone] mg/dL. * Patient received 48 units of insulin (25 units of basal and 23 units of bolus). * Today's BSGs are 161-115 mg/dL. * BSGs are reasonably controlled so continue current regimen. BACKGROUND * is an 82 year old female admitted due to recurrent UTI (on ertapenem) * Reasonable outpatient glycemic control per most recent HbA1c * Initial regimen will mimic outpatient regimen/total daily dose - will keep Lantus once daily to correlate with outpatient regimen * Last dose of Lantus was reportedly last evening (01/24) PLAN FOR INPATIENT GLYCEMIC CONTROL: * Basal insulin * Lantus 25 units SQ HS * Bolus insulin * NovoLog per scale ACHS or Q6hrs while NPO * Goal Range: Low 110 mg/dL - High 140 mg/dL * Correction Factor: 25 mg/dL/unit * Nutritional / Prandial insulin per carb ratio of 1 unit per 8 grams CHO consumed
--- NOTE | 2023-01-27 16:43 | Discharge Summary ---
Date of Service January 27, 2023 Admission HPI Per Admitting Provider Lisa is an 82-year-old female with past medical history of recurrent drug- resistant UTIs who presents with dysuria and 1 episode of nausea with vomiting. 4-5 days ago one episode of Nausea vomiting, then felt ok until yesterday when she developed severe burning with urination similar to prior UTIs. 2x pyridium helped overnight, but dysuria returned and has been severe. NO fever, chills, sweats. Denies flank/back pain. Has been taking her imbrutinib, did nto bring with her as she expected it to be held. No chest pain or chest pressure. denies other sx Medical History: Reviewed Medications: Reviewed Surgical History: Reviewed Family history: Reviewed Allergies: Reviewed Social History: No tobacco, no etoh. Code Status: Full Code Principal Diagnosis UTI Discharge Exam General: A&Ox3. NAD. Cooperative. HEENT: Atraumatic, normocephalic. Pulm: CTAB A&P. -wheezes, -rales, -rhonchi. Symmetrical chest rise. No increased work of breathing. No respiratory distress. Cardiac: RRR, -mrg. Radial pulses intact and symmetrical. Abdominal: Nontender, nondistended, soft. BS present. Ext: Warm, dry, moves all extremities equally. Discharge Data Allergies Allergy/AdvReac Type Severity Reaction Status Date / Time amoxicillin Allergy Severe Swelling Verified 01/16/23 15:38 of Lip/Tongue/Throat cefazolin Allergy Severe Hives Unverified 01/16/23 15:38 egg Allergy Severe Gastrointestinal Unverified 01/16/23 15:38 Upset nut - unspecified Allergy Severe Swelling Verified 01/16/23 15:38 of Lip/Tongue/Throat pineapple Allergy Severe Swelling Verified 01/16/23 15:38 of Lip/Tongue/Throat nitrofurantoin Allergy Mild tachycardia Verified 01/16/23 15:38 aspirin Allergy Unknown INCREASES Verified 01/16/23 15:38 BLEEDING acetaminophen [From Tylenol] AdvReac Severe liver bleed Verified 01/16/23 15:38 duloxetine AdvReac Severe SEVERE Verified 01/16/23 15:38 VOMITING caffeine AdvReac Intermediate racing Verified 01/16/23 15:38 heart lisinopril AdvReac Intermediate cough, Verified 01/16/23 15:38 white "stuff" all over lungs Sulfa (Sulfonamide AdvReac Intermediate Tinnitis Verified 01/16/23 15:38 Antibiotics) Consultations 01/25/23 05:13 ED Decision to Admit Stat Hospital Course (1) Recurrent UTI: UTI Past UTI cultures: 01/03/2023: VRE sensitive to Dapto, resistant to vancomycin, tetracycline, ciprofloxacin, levofloxacin, ampicillin 12/17/2022: Pansensitive Klebsiella 09/16/2022: ESBL E. coli sensitive to ertapenem, meropenem, Zosyn. A amox/clav sensitive but amp/sulbactam resistant 07/09/2022: ESBL E. coli, Bactrim sensitive, Zosyn sensitive, meropenem/ertapenem sensitive. Otherwise intermediate or resistant. Sensitivities 01/23/2022: E. coli, ampicillin and Unasyn resistant 06/18/2021 and 07/19/2021: Enterobacter cloaca, Rocephin resistant Carbapenem sent 01/2021: Citrobacter casiano sensitive 06/24/2020: ESBL Proteus mirabilis sensitive to ertapenem/meropenem, Levaquin, Zosyn, and amikacin WBC: No leukocytosis Admitting creatinine:: Creatinine less than 1.1 at baseline, admitting creatinine 1.21 Procalcitonin negative Urine overtly infected appearing, UC pending Given multiple resistant infections as detailed above will admit on ertapenem pending culture results. No history of pseudomonal UTI. If speciated with VRE will need Dapto adjunct therapy added culture results: currently showing E. coli, patient has rahs for cephalosporins listed, however, she recently tolerated ceftriaxone. Will continue cephalosporin and monitor. CLL With intra-abdominal lymph node metastasis Hold Imbrutinib while tx for active infection History of chronic pancreatitis Noted, continue to follow Paroxysmal A-fib continue metoprolol Eliquis previously discontinued due to bleeding Hypertension continue metoprolol, losartan, amlodipine, statin Diabetes type 2 Continue basal bolus insulin Glucose goal [id number] Glargine 26 units at bedtime, SSI based on basal requirements Pharmacy consulted for assistance in management alongside infection Glucose checks AC/HS DVT PPx: Lovenox Dispo: Med/Surg CODE: Full Diet: T2DM (2) CLL (chronic lymphocytic leukemia): (3) Paroxysmal A-fib: (4) Diabetes: Total Time Total Time Spent Total Time Spent (In Minutes): 32 Discharge Plan Discharge Items Patient Disposition: Home - Self-Care Reason For Visit: UTI, HX ESBL Discharge Diagnosis: UTI Activity: Resume your previous activity Non-emergency contact: Primary Care Provider Call non-emergency contact if: you have any medication questions Follow-up/Referrals: Keith Hutchinson DO [Primary Care Provider] - Diet: Carb Consistent or DM2 Addtl Attending Provider Instructions: We will discharge you on 5 days of cefdinir. In the past you have had hives from cefazolin which is in the same family, however, you did tolerate ceftriaxone in the recent past. You should be able to tolerate this medicine, if the hives return, pleae come back to the hospital. Pending Studies at Discharge: No Stand-Alone Forms: My TSO3, Smoking Cessation Medications and DC Order Prescriptions: New cefdinir 300 mg capsule 300 mg PO BID 5 Days Qty: 10 0RF Rx Instructions: take first dose on 5AM Continued (DME) lancets [Prodigy Lancets] 28 gauge misc See Rx Instructions .Route Qty: 300 3RF Rx Instructions: As directed: check tid ondansetron HCl 4 mg tablet 4 mg PO Q8H PRN (Reason: Nausea) Qty: 90 1RF Patient Comments: "Several weeks" since last use. cholecalciferol (vitamin D3) [Vitamin D3] 25 mcg (1,000 unit) tablet 1,000 unit PO QDL Qty: 30 3RF (DME) BD Insulin Syringe (half unit) 0.3 mL 31 gauge x 5/16" syringe See Rx Instructions .Route Qty: 300 3RF Rx Instructions: use to give insulin three times daily ferrous sulfate [FeroSul] 325 mg (65 mg iron) tablet 325 mg PO BID Qty: 180 1RF Rx Instructions: Take with Vitamin C twice daily ascorbic acid (vitamin C) [Vitamin C] 500 mg tablet 500 mg PO BID Rx Instructions: Take with Ferrous Sulfate (Iron) twice daily (DME) Prodigy No Coding Strip See Rx Instructions .Route Qty: 100 5RF Patient Comments: Pt uses glucometer when wearable flash glucose sensor not on. Rx Instructions: Patient tests 3 times daily and as needed when symtomatic insulin glargine [Basaglar KwikPen U-100 Insulin] 100 unit/mL (3 mL) insulin pen 26 unit SUBCUT HS Qty: 15 3RF (DME) pen needle, diabetic [BD Ultra-Fine Mini Pen Needle] 31 gauge x 3/16" needle See Rx Instructions .Route Qty: 100 3RF Rx Instructions: As directed potassium chloride 10 mEq capsule, extended release 10 meq PO BID Qty: 180 3RF atorvastatin 10 mg tablet 10 mg PO HS Qty: 90 1RF insulin aspart U-100 [Novolog U-100 Insulin aspart] 100 unit/mL solution 7 unit subcut TID Qty: 30 3RF estradiol 0.01 % (0.1 mg/gram) cream 0.5 appful vaginal .COMPLEX Qty: 42.5 1RF Rx Instructions: 0.5 appful vaginally twice weekly; for 14 days (DME) FreeStyle Vicente 2 Sensor Kit See Rx Instructions .Route Qty: 1 3RF Patient Comments: Pt removed wearable glucose monitor 01/24/2023. Rx Instructions: As directed E11.9 (DME) FreeStyle Vicente 2 Sensor Kit See Rx Instructions .Route Qty: 1 2RF Rx Instructions: change q 14 days buspirone 15 mg tablet 15 mg PO TID Qty: 270 0RF methenamine hippurate 1 gram tablet 1 g PO Q12H 90 Days Qty: 180 3RF Gemtesa 75 mg tablet 75 mg PO DAILY cranberry fruit concentrate 125 mg tablet,disintegrating 250 mg PO DAILY nystatin-triamcinolone 100,000-0.1 unit/gram-% ointment 1 applic topical BID Qty: 30 1RF Patient Comments: Last used in gluteal fold. losartan 25 mg tablet 25 mg PO DAILY cholestyramine (with sugar) [Questran] 4 gram powder in packet 4 g PO BID PRN (Reason: Loose stools or diarrhea.) Rx Instructions: administer w/meal; avoid other meds within 1hr before or 4-6hr after dose amlodipine 5 mg tablet 5 mg PO BID Glucosamine Chondroitin 550-30-1 mg Capsule 1 cap PO QDL magnesium oxide 400 mg (241.3 mg magnesium) tablet 400 mg PO BID omega [id number]-fish oil [Fish Oil] 1,200 (144-216) mg Capsule 1 cap PO QDL calcium carbonate [Calcium 600] 600 mg calcium (1,500 mg) tablet 600 mg PO DAILY cyanocobalamin (vitamin B-12) [Vitamin B-12] 1,000 mcg Tablet 1,000 mcg PO DAILY carboxymethylcellulose sodium 1 % Drops, Liquid Gel 2 drp OPHTHALMIC (EYE) BID PRN (Reason: Dry Eye(S)) Probiotic 3 billion cell Capsule 3,000 mmu cells PO DAILY Rx Instructions: administer with a meal multivitamin Tablet 1 tab PO QDL Imbruvica 280 mg tablet 280 mg PO QAM Hold Instructions: Resume on 01/04/23. garlic 100 mg Tablet 100 mg PO DAILY metoprolol tartrate 25 mg Tablet 12.5 mg PO BID Qty: 30 0RF No Action omeprazole 20 mg capsule,delayed release(DR/EC) 40 mg PO DAILY Rx Instructions: Pt states she take 20 mg a day AZO D-Mannose 500 mg capsule 500 mg PO DAILY Rx Instructions: Pt started this per Dr. Hudson- for good Urinary health. Discharge Orders: Discharge Order (Routine); Ordered 01/27/23 Ordered By: Elvis Maguire/Other Patient Handouts: Urinary Tract Infections in Women Admission Data Admit Date/Time: 01/25/23 06:02 Attending Provider: Elvis Finch Admit Provider: Marito Sánchez Primary Care Provider: Keith Hutchinson Other Providers: Marito Sánchez ; [facility] Other Interventions: Discharge Summary Assessment (RN) Last Done: 01/27/23 17:40 Coding Level of Care Code 78462 INP/OBS DISCH >30 MIN Diagnoses Recurrent UTI N39.0 CLL (chronic lymphocytic leukemia) C91.90 Paroxysmal A-fib I48.0 Diabetes E11.9
== END 2023-01-27 17:55 | disposition home or self-care (01) | DRG 690 ==
LOC: ED 03:38 → 3W 06:02 → SUATTDRO 06:02 → 3W 06:43

== ENCOUNTER 2023-02-03 01:16 | Inpatient (IN) ==
--- NOTE | 2023-02-03 01:45 | Emergency Department Note ---
Impression & Plan Recurrent UTI Admit to the [facility]ist ED Provider Note NAME: ILIANA CALDWELL AGE: 82 SEX: F ARRIVES VIA: Walk-In INFORMANT: Patient ED PROVIDER(S): Tasha Julio DO CHIEF COMPLAINT: Dysuria PLAN: Disposition: Admit to the [facility] Condition: Fair MEDICAL DECISION MAKING: This is an 82-year-old female patient with a longstanding history of recurrent urinary tract infections from multi resistant UTIs. Patient just finished taking antibiotics yesterday and she presents back today with significant dysuria. She also developed chills and hyperglycemia. Patient denies any nausea, vomiting, fever or lack of appetite. She had been told during her most recent admission that if she had any recurrent symptoms that she should return the emergency department for IV antibiotics. Laboratory studies reveal no leukocytosis. Lactate is normal. Procalcitonin was normal and troponin was normal Glucose was 172. Magnesium was slightly low at 1.5. There was no evidence of CHRIST. Chest x-ray was unremarkable. Patient was given a dose of IV Rocephin Triage Nursing notes reviewed and agree with them. External records reviewed including multiple previous admissions to the hospital and urinary cultures. Vital Signs: reviewed and unremarkable Differential diagnosis: Sepsis, recurrent resistant UTI, dehydration, CHRIST ER treatment provided: library monitor IV Rocephin Diagnostics independently interpreted by me: ECG: Normal sinus rhythm at [address] segment elevation or signs of ischemia Cardiac Monitoring: Normal sinus rhythm at 72 Laboratory studies: See below Imaging studies: As per my independent interpretation Chest x-ray: Cardiomegaly with no other acute pulmonary findings. No changes from previous x-ray HPI: 82/F arrives for evaluation of dysuria. Patient finished an outpatient course of cephalexin yesterday. She began to notice chills yesterday evening along with some high blood sugar readings. She then developed chills last eveni ng. She did not feel well today and asked her to bring her here to the hospital believe that she will require admission for IV antibiotics. PAST MEDICAL HISTORY:See Below PAST SURGICAL HISTORY:See Below FAMILY HISTORY:See Below SOCIAL HISTORY:See Below HOME MEDICATIONS:See list ALLERGIES:See lengthy list VITALS:See Below PHYSICAL EXAMINATION: HEENT: Head - normocephalic and atraumatic Pupils are equal, round, and reactive to light. Extraocular eye muscles are intact, and sclera are anicteric. Nose - moist nasal mucosa without discharge. Mouth - moist buccal mucosa. Oropharynx is nonerythematous and there is no tonsillar exudate or edema noted. Neck: Supple; no JVD or cervical lymphadenopathy. Heart: Regular rate and rhythm. There is a normal S1 and S2 with no murmurs, clicks, or gallops appreciated. Lungs: Clear to auscultation bilaterally with no wheezes, rales, or rhonchi. Abdomen: Soft, mild right lower quadrant tenderness with palpation, nondistended, with good bowel sounds. There are no palpable pulsatile masses or hepatosplenomegaly. There is no guarding, rigidity, or rebound noted. Extremities: No evidence of cyanosis, clubbing, or edema. There are easily palpable peripheral pulses. Skin: warm and dry with good turgor and no rashes. ED COURSE: Times/Reassessments: 125: Patient was evaluated in room A-10. An order was placed for continuous cardiac monitoring. The patient was in a normal sinus rhythm at a rate of 72. Twelve-lead EKG was obtained as described above. Septic protocol was performed. A urine specimen was obtained. Patient was started on IV Rocephin. I discussed the case with the [facility] Hospitalist and they will evaluate for further inpatient care. 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 current use of anticoagulant Metastatic cancer to intra-abdominal lymph nodes Nut allergy Paroxysmal A-fib Peripheral neuropathy Poisoning by acemetacin Recurrent UTI Recurrent UTI Tick bite Transaminitis Urgency incontinence Surgical History H/O: hysterectomy S/P appendectomy S/P cataract surgery both eyes S/P cholecystectomy Family History Mother Heart disease Father Lung disease Prostate cancer Sister COVID Arthritis Uncle Myocardial infarction Heart disease Aunt Myocardial infarction Denies family history of Ovarian cancer Breast cancer Colorectal cancer Social History Smoking Status: Never smoker Second Hand Exposure: No; Do You Dip or Chew Tobacco: No; Hx Alcohol Use: No Hx Substance Use: No Preferred Language: Hungarian Communication Ability: Effective Visual Impairment: Partially Limited Hearing Ability: Normal 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: No Beliefs That Will Affect Care: None marital status: Current Living Situation: Spouse Current Living Situation Comment: lives at home with current occupational status: retired current occupation: [employer] How many Children do You have: 1 Other Information That Helps Us Care for You: No other: 1 alive and 1 Feels Safe at Home: Yes Safety Concerns: Feels Safe At This Time Childhood Exposure to Second-Hand Smoke: No Dental Care, Regularly: No Physical Activity Frequency: Does not Exercise Seatbelt Use: always Sunscreen Use: No (hardly in sun d/t medicine ) Gender Identity: Female Assistive Devices: Glasses Allergies Allergies Allergy/AdvReac Type Severity Reaction Status Date / Time amoxicillin Allergy Severe Swelling Verified 01/16/23 15:38 of Lip/Tongue/Throat cefazolin Allergy Severe Hives Unverified 01/16/23 15:38 egg Allergy Severe Gastrointestinal Unverified 01/16/23 15:38 Upset nut - unspecified Allergy Severe Swelling Verified 01/16/23 15:38 of Lip/Tongue/Throat pineapple Allergy Severe Swelling Verified 01/16/23 15:38 of Lip/Tongue/Throat nitrofurantoin Allergy Mild tachycardia Verified 01/16/23 15:38 aspirin Allergy Unknown INCREASES Verified 01/16/23 15:38 BLEEDING acetaminophen [From Tylenol] AdvReac Severe liver bleed Verified 01/16/23 15:38 duloxetine AdvReac Severe SEVERE Verified 01/16/23 15:38 VOMITING caffeine AdvReac Intermediate racing Verified 01/16/23 15:38 heart lisinopril AdvReac Intermediate cough, Verified 01/16/23 15:38 white "stuff" all over lungs Sulfa (Sulfonamide AdvReac Intermediate Tinnitis Verified 01/16/23 15:38 Antibiotics) Home Meds Home Medications Medication Instructions Recorded Confirmed amlodipine 5 mg tablet 5 mg PO BID 06/24/20 01/28/23 glucosamine sulf dipot 1 cap PO QDL 06/24/20 01/28/23 chlr,msm,chond 550 mg-C 30 mg-aleena 1 mg capsule (Glucosamine Chondroitin) magnesium oxide 400 mg (241.3 mg 400 mg PO BID 06/24/20 01/28/23 magnesium) tablet omega [id number]-fish oil 1,200 mg 1 cap PO QDL 06/24/20 01/28/23 (144 mg-216 mg) capsule (Fish Oil) ibrutinib 280 mg tablet (Imbruvica) 280 mg PO QAM 11/10/20 01/28/23 multivitamin 1 tab PO QDL 11/10/20 01/28/23 losartan 25 mg tablet 25 mg PO DAILY 07/19/21 01/28/23 garlic 100 mg tablet 100 mg PO DAILY 08/23/21 01/28/23 ascorbic acid (vitamin C) 500 mg 500 mg PO BID 04/13/22 01/28/23 tablet (Vitamin C) calcium carbonate 600 mg calcium 600 mg PO DAILY 11/29/22 01/28/23 (1,500 mg) tablet (Calcium) cranberry fruit concentrate 125 mg 250 mg PO DAILY 11/29/22 01/28/23 disintegrating tablet carboxymethylcellulose sodium 1 % 2 drp ophthalmic (eye) BID PRN Dry 12/17/22 01/28/23 eye liquid gel drops Eye(S) cyanocobalamin (vitamin B-12) 1,000 mcg PO DAILY 12/17/22 01/28/23 1,000 mcg tablet (Vitamin B-12) lactobacillus combination no.4 3 3,000 mmu cells PO DAILY 12/17/22 01/28/23 billion cell capsule (Probiotic) vibegron 75 mg tablet (Gemtesa) 75 mg PO DAILY 01/03/23 01/28/23 cholestyramine (with sugar) 4 gram 4 g PO BID PRN Loose stools or 01/14/23 01/28/23 powder for susp in a packet diarrhea. (Questran) d-mannose 500 mg capsule (AZO 500 mg PO DAILY 01/28/23 01/28/23 D-Mannose) omeprazole 20 mg capsule,delayed 40 mg PO DAILY 01/28/23 01/28/23 release Previous Rx's Medication Instructions Recorded lancets 28 gauge (Prodigy Lancets) #300 ea 04/23/21 ondansetron HCl 4 mg tablet 4 mg PO Q8H PRN Nausea #90 tabs 06/18/21 metoprolol tartrate 25 mg tablet 12.5 mg PO BID #30 tabs 08/25/21 cholecalciferol (vitamin D3) 25 1,000 unit PO QDL #30 tabs 11/13/21 mcg (1,000 unit) tablet (Vitamin D3) insulin syr/ndl U100 half morena 0.3 #300 ea 11/29/21 mL 31 gauge x 5/16" (BD Insulin Syringe Ultra-Fine (half unit)) ferrous sulfate 325 mg (65 mg 325 mg PO BID #180 tabs 12/11/21 iron) tablet (FeroSul) blood sugar diagnostic (Prodigy No #100 ea 04/18/22 Coding strips) insulin glargine 100 unit/mL (3 26 unit (0.26 mL) subcut HS #15 mL 05/27/22 mL) subcutaneous pen (Basaglar KwikPen U-100 Insulin) pen needle, diabetic 31 gauge x #100 ea 06/14/22 3/16" (BD Ultra-Fine Mini Pen Needle) potassium chloride 10 mEq 10 meq PO BID #180 caps 07/23/22 capsule,extended release atorvastatin 10 mg tablet 10 mg PO HS #90 tabs 09/09/22 insulin aspart U-100 100 unit/mL 7 unit (0.07 mL) subcut TID #30 mL 09/27/22 subcutaneous solution (Novolog U-100 Insulin aspart) estradiol 0.01% (0.1 mg/gram) 0.5 appful vaginal .COMPLEX #42.5 10/09/22 vaginal cream grams flash glucose sensor (FreeStyle #1 ea 11/06/22 Vicente 2 Sensor kit) flash glucose sensor (FreeStyle #1 ea 11/06/22 Vicente 2 Sensor kit) buspirone 15 mg tablet 15 mg PO TID #270 tabs 11/26/22 nystatin-triamcinolone 100,000 1 applic topical BID #30 grams 12/09/22 unit/gram-0.1 % topical ointment methenamine hippurate 1 gram tablet 1 g PO Q12H 90 days #180 tabs 01/15/23 Results & Data (ED) Vital Signs Vital Signs - 24 hr 02/03/23 01:19 02/03/23 02:01 02/03/23 02:38 Temperature 36.8 C Temperature Source Temporal Artery Scan Pulse Rate 76 81 Pulse Rate [Apical] 79 Respiratory Rate 18 20 20 Respiratory Effort / Characteristics Non-Labored Spontaneous Respiratory Depth Normal Blood Pressure 146/74 H Blood Pressure [Right Arm] Blood Pressure [Right Radial Artery] 171/88 H Blood Pressure Mean 98 Blood Pressure Mean [Right Arm] Blood Pressure Mean [Right Radial Artery] 115 Pulse Oximetry 95 93 94 Oxygen Delivery Method Room Air Room Air Room Air Sepsis Recent Fever Within 48 Hours No Sepsis New/Unexplained Change in Mental Status No Sepsis Action Taken by Nursing No Action Required 02/03/23 02:40 02/03/23 02:17 02/03/23 03:00 Temperature Temperature Source Pulse Rate 76 Pulse Rate [Apical] 80 74 Respiratory Rate 20 19 Respiratory Effort / Characteristics Respiratory Depth Blood Pressure Blood Pressure [Right Arm] 160/121 H 163/75 H Blood Pressure [Right Radial Artery] Blood Pressure Mean Blood Pressure Mean [Right Arm] 134 104 Blood Pressure Mean [Right Radial Artery] Pulse Oximetry 93 94 Oxygen Delivery Method Room Air Room Air Sepsis Recent Fever Within 48 Hours Sepsis New/Unexplained Change in Mental Status Sepsis Action Taken by Nursing 02/03/23 04:00 Temperature Temperature Source Pulse Rate Pulse Rate [Apical] 75 Respiratory Rate 14 Respiratory Effort / Characteristics Respiratory Depth Blood Pressure Blood Pressure [Right Arm] 151/82 H Blood Pressure [Right Radial Artery] Blood Pressure Mean Blood Pressure Mean [Right Arm] 105 Blood Pressure Mean [Right Radial Artery] Pulse Oximetry 92 Oxygen Delivery Method Room Air Sepsis Recent Fever Within 48 Hours Sepsis New/Unexplained Change in Mental Status Sepsis Action Taken by Nursing Laboratory Data 02/03/23 02:31 02/03/23 02:31 Lab Results 02/03/23 02/03/23 02/03/23 Range/Units 01:30 02:31 02:31 WBC 8.29 (4.8-10.8) K/ul RBC 3.87 L (4.20-5.40) M/uL Hgb 12.3 (12.0-16.0) g/dl Hct 35.3 L (37.0-47.0) % MCV 91.2 (80.0-100.0) fL MCH 31.8 (25.0-34.0) pg MCHC 34.8 (32.0-36.0) g/dL RDW Std Deviation 44.1 (36.4-46.3) fL RDW Coeff of Matthew 13.4 (11.5-14.5) % Plt Count 164 (130-400) K/uL MPV 10.4 (9.4-12.4) fL Immature Gran % (Auto) 0.7 % Neut % (Auto) 75.1 % Lymph % (Auto) 14.6 % [place] % (Auto) 7.6 % Eos % (Auto) 1.6 % Baso % (Auto) 0.4 % Neut # (Auto) 6.23 (1.40-6.50) K/uL Lymph # (Auto) 1.21 (1.2-3.4) K/uL [place] # (Auto) 0.63 H (0.11-0.59) K/uL Eos # (Auto) 0.13 (0-0.50) K/uL Baso # (Auto) 0.03 (0-0.2) K/uL Immature Gran # (Auto) 0.06 (0.01-0.20) K/uL Sodium 139 (136-145) mmol/L Potassium 3.9 (3.5-5.1) mmol/L Chloride 107 (98-107) mmol/L Carbon Dioxide 24 (21-32) mmol/L Anion Gap 8 (3-11) BUN 17 (6-23) mg/dl Creatinine 0.97 (0.6-1.2) mg/dl Est Cr Clr Drug Dosing Not Reportable Est GFR ( Amer) 63.9 ml/min Est GFR (Non-Af Amer) 55.2 ml/min BUN/Creatinine Ratio 17.5 (10-20) Glucose 172 H (70-99(Fasting)) mg/dl Lactate (0.4-2.0) mmol/L Calcium 9.3 (8.6-10.3) mg/dl Magnesium 1.5 L (1.7-2.4) mg/dl Total Bilirubin 1.2 H (0.2-1.0) mg/dl Direct Bilirubin 0.2 (0-0.2) mg/dl AST 20 (13-39) U/L ALT 29 (7-52) U/L Alkaline Phosphatase 80 (34-104) U/L Troponin I High Sens 7.0 (0-14) pg/ml Total Protein 6.3 (6.0-8.3) gm/dl Albumin 3.7 (3.4-5.0) gm/dl Procalcitonin (0-0.5) ng/ml Urine Color Dark Yellow Urine Appearance Clear (Clear) Urine pH 5.5 (4.5-7.5) Ur Specific [place] 1.007 (1.000-1.030) Urine Protein Negative (Negative) Urine Glucose (UA) Trace H (Negative) Urine Ketones Negative (Negative) Urine Blood Negative (Negative) Urine Nitrite Positive A (Negative) Urine Bilirubin Negative (Negative) Urine Urobilinogen Negative (Negative) Ur Leukocyte Esterase 3+ H (Negative) Urine WBC (Auto) 10-30 H (0-5) /hpf Urine RBC (Auto) 0-4 (0-4) /hpf U Hyaline Cast (Auto) 1-5 (0-5) /lpf U Epithel Cells (Auto) >30 H (0-5) /lpf Urine Bacteria (Auto) Negative (Negative) Ur Renal Epithelial Cell 0-5 (0-5) /lpf Urine Yeast Budding w/ Hyphae A (None Prsent) Nasal Screen MRSA (PCR) (Negative) 02/03/23 02/03/23 02/03/23 Range/Units 02:31 02:31 04:30 WBC (4.8-10.8) K/ul RBC (4.20-5.40) M/uL Hgb (12.0-16.0) g/dl Hct (37.0-47.0) % MCV (80.0-100.0) fL MCH (25.0-34.0) pg MCHC (32.0-36.0) g/dL RDW Std Deviation (36.4-46.3) fL RDW Coeff of Matthew (11.5-14.5) % Plt Count (130-400) K/uL MPV (9.4-12.4) fL Immature Gran % (Auto) % Neut % (Auto) % Lymph % (Auto) % [place] % (Auto) % Eos % (Auto) % Baso % (Auto) % Neut # (Auto) (1.40-6.50) K/uL Lymph # (Auto) (1.2-3.4) K/uL [place] # (Auto) (0.11-0.59) K/uL Eos # (Auto) (0-0.50) K/uL Baso # (Auto) (0-0.2) K/uL Immature Gran # (Auto) (0.01-0.20) K/uL Sodium (136-145) mmol/L Potassium (3.5-5.1) mmol/L Chloride (98-107) mmol/L Carbon Dioxide (21-32) mmol/L Anion Gap (3-11) BUN (6-23) mg/dl Creatinine (0.6-1.2) mg/dl Est Cr Clr Drug Dosing Est GFR ( Amer) ml/min Est GFR (Non-Af Amer) ml/min BUN/Creatinine Ratio (10-20) Glucose (70-99(Fasting)) mg/dl Lactate 1.3 (0.4-2.0) mmol/L Calcium (8.6-10.3) mg/dl Magnesium (1.7-2.4) mg/dl Total Bilirubin (0.2-1.0) mg/dl Direct Bilirubin (0-0.2) mg/dl AST (13-39) U/L ALT (7-52) U/L Alkaline Phosphatase (34-104) U/L Troponin I High Sens (0-14) pg/ml Total Protein (6.0-8.3) gm/dl Albumin (3.4-5.0) gm/dl Procalcitonin < 0.05 (0-0.5) ng/ml Urine Color Urine Appearance (Clear) Urine pH (4.5-7.5) Ur Specific [place] (1.000-1.030) Urine Protein (Negative) Urine Glucose (UA) (Negative) Urine Ketones (Negative) Urine Blood (Negative) Urine Nitrite (Negative) Urine Bilirubin (Negative) Urine Urobilinogen (Negative) Ur Leukocyte Esterase (Negative) Urine WBC (Auto) (0-5) /hpf Urine RBC (Auto) (0-4) /hpf U Hyaline Cast (Auto) (0-5) /lpf U Epithel Cells (Auto) (0-5) /lpf Urine Bacteria (Auto) (Negative) Ur Renal Epithelial Cell (0-5) /lpf Urine Yeast (None Prsent) Nasal Screen MRSA (PCR) Negative (Negative) Administered Medications Discontinued Medications Ceftriaxone Sodium (Rocephin) 2,000 mg in 70 mls @ 140 mls/hr IV NOW STA Stop: 02/03/23 03:40 Last Infusion: 02/03/23 03:55 Dose: 0 mls/hr Documented By: Admin: 02/03/23 03:21 Dose: 140 mls/hr Documented By: HILLARY Magnesium Sulfate/Dextrose (Magnesium Sulfate / D5w) 1 gm in 100 mls @ 50 mls/hr IV ONE ONE Stop: 02/03/23 06:08 Last Infusion: 02/03/23 07:10 Dose: 0 mls/hr Documented By: Admin: 02/03/23 04:15 Dose: 50 mls/hr Documented By: HILLARY Imaging Data Radiologist's Impression: Chest X-Ray 02/03/23 01:42 XR chest 1V portable CLINICAL HISTORY: Sepsis TECHNIQUE: Single frontal radiograph of the chest was obtained. Comparison: Comparison is made to chest radiograph 02/23/2021 FINDINGS: No lines and tubes are seen. Calcified aortic knob is seen. The lungs are clear. No evidence of pleural effusion or pneumothorax. IMPRESSION: No acute abnormalities and in particular no radiographic evidence of pneumonia. ACT 112: Negative or not required by law. Electronically signed by: David Pineda M.D. 02/03/2023 7:00 AM Discharge Plan Visit Data Chief Complaint: Urinary Symptoms Stated Complaint: UTI - NEEDS INTERVEINUS MEDS ED Provider: Tasha Julio Discharge Problem: Recurrent UTI Patient Disposition: Admitted As Inpatient Discharge Instructions Interventions: ED Discharge Assessment Last Done: 02/03/23 05:21
[2023-02-03 02:02] LABS: Appearance Urine Clear (Clear); Bacteria Urine Automated Negative (Negative); Bilirubin Urine Negative (Negative); Blood Urine Negative (Negative); Color Urine Dark Yellow; Epithelial Cell Urine Auto >30 /lpf (0-5); Glucose Urine UA Trace (Negative); Ketones Urine Negative (Negative); Leukocyte Esterase Urine 3+ (Negative); Nitrite Urine Positive (Negative); Protein Urine Negative (Negative); RBC Urine Automated 0-4 /hpf (0-4); Specific Gravity Urine 1.007 (1.000-1.030); Urobilinogen Urine Negative (Negative); pH Urine 5.5 (4.5-7.5)
[2023-02-03 02:22] LABS: Renal Epithelial Cells Urine 0-5 /lpf (0-5)
[2023-02-03 02:47] LABS: Basophils # (auto) 0.03 K/uL (0-0.2); Basophils % (auto) 0.4 %; Eosinophils # (auto) 0.13 K/uL (0-0.50); Eosinophils % (auto) 1.6 %; Hematocrit (blood only) 35.3 % (37.0-47.0); Hemoglobin 12.3 g/dl (12.0-16.0); Immature Granulocytes # (auto) 0.06 K/uL (0.01-0.20); Immature Granulocytes % (auto) 0.7 %; Lymphocytes # (auto) 1.21 K/uL (1.2-3.4); Lymphocytes % (auto) 14.6 %; Mean Corpuscular Hemoglobin 31.8 pg (25.0-34.0); Mean Corpuscular Hgb Conc 34.8 g/dL (32.0-36.0); Mean Corpuscular Volume 91.2 fL (80.0-100.0); Mean Platelet Volume 10.4 fL (9.4-12.4); Monocytes # (auto) 0.63 K/uL (0.11-0.59); Monocytes % (auto) 7.6 %; Neutrophils # (auto) 6.23 K/uL (1.40-6.50); Neutrophils % (auto) 75.1 %; Platelet Count 164 K/uL (130-400); RDW Coefficient of Variation 13.4 % (11.5-14.5); RDW Standard Deviation 44.1 fL (36.4-46.3); Red Blood Count 3.87 M/uL (4.20-5.40); White Blood Count 8.29 K/ul (4.8-10.8)
[2023-02-03 03:04] LABS: Alanine Aminotransferase 29 U/L (7-52); Albumin Level 3.7 gm/dl (3.4-5.0); Alkaline Phosphatase 80 U/L (34-104); Anion Gap 8 (3-11); Aspartate Aminotransferase 20 U/L (13-39); BUN Creatinine Ratio 17.5 (10-20); Bilirubin Direct 0.2 mg/dl (0-0.2); Bilirubin,Total 1.2 mg/dl (0.2-1.0); Blood Urea Nitrogen 17 mg/dl (6-23); Calcium 9.3 mg/dl (8.6-10.3); Carbon Dioxide 24 mmol/L (21-32); Chloride 107 mmol/L (98-107); Est GFR (African American) 63.9 ml/min; Est GFR (Non-African American) 55.2 ml/min; Glucose 172 mg/dl (70-99(Fasting)); Magnesium 1.5 mg/dl (1.7-2.4); Potassium 3.9 mmol/L (3.5-5.1); Sodium 139 mmol/L (136-145); Total Protein 6.3 gm/dl (6.0-8.3)
[2023-02-03] MEDS ORDERED: cefTRIAXone SODIUM 2,000 MG/70 ML BAG IV STA (03:11)
[2023-02-03] MEDS ORDERED: MAGNESIUM SULFATE / D5W 1 GM/100 ML BAG IV ONE (04:09)
--- NOTE | 2023-02-03 04:12 | History & Physical Report ---
Date of Service February 03, 2023 Assessment & Plan (1) Recurrent UTI: Plan: 82 yo female with PMHx of recurrent complicated ESBL UTI, CLL, h/o cervical cancer, chronic pancreatitis, HTN, HLD, anxiety, DM2, urinary incontinence, GERD, paroxysmal A Fib, and bilateral hydronephrosis presents with UTI symptoms. #UTI symptoms #H/o recurrent multi drug resistant UTI -presents with 1 day severe dysuria. Was discharged from [facility] 2 days ago for similar complaint. During that visit she was on ertapenem and discharged on cefdinir. Does not appear septic on presentation. No leukocytosis. CXR unremarkable. UA appears infectious. Urine and blood cx pending. MRSA nares pen ding. Past UTI cultures: --01/25/2023: E. Coli resistant to ciprofloxacin and levofloxacin 01/03/2023: VRE sensitive to Dapto, resistant to vancomycin, tetracycline, ciprofloxacin, levofloxacin, ampicillin 12/17/2022: Pansensitive Klebsiella 09/16/2022: ESBL E. coli sensitive to ertapenem, meropenem, Zosyn. A amox/clav sensitive but amp/sulbactam resistant 07/09/2022: ESBL E. coli, Bactrim sensitive, Zosyn sensitive, meropenem/ertapenem sensitive. Otherwise intermediate or resistant. Sensitivities 01/23/2022: E. coli, ampicillin and Unasyn resistant 06/18/2021 and 07/19/2021: Enterobacter cloaca, Rocephin resistant Carbapenem sent 01/2021: Citrobacter casiano sensitive 06/24/2020: ESBL Proteus mirabilis sensitive to ertapenem/meropenem, Levaquin, Zosyn, and amikacin -due to h/o bilateral hydronephrosis, will obtain repeat CT a/p. -received rocephin in ED. Will switch to meropenem and daptomycin given past resistance patterns. Await cx/sensitivities. Given failure of outpatient therapy on discharge, will likely benefit from extended IV abx. -daily probiotic #Yeast infection -UA with yeast. Unclear whether this is vulvovaginal or urinary source. She does have one previous micro with rare young. Will treat as vulvovaginal for now until urine cx results. Ordered po Diflucan 150mg q72h x 2 doses. #DM2 -cont. home insulin bolus regimen + SSI #CLL -follows with oncology -hold ibrutinib while treating active infection #Anxiety -cont. buspar #HLD -hold statin while on dapto #HTN -cont. amlodipine, losartan, metoprolol #Afib -cont. metoprolol -eliquis previously discontinued due to bleeding #GERD -cont. protonix #Urinary incontinence -cont. vibegron DVT ppx: lovenox FEN/GI: DM2 Code Status: full Dispo: med tele (2) Urinary tract infection symptoms: (3) CLL (chronic lymphocytic leukemia): (4) History of cervical cancer: (5) Anxiety: (6) Paroxysmal A-fib: (7) Dysuria: (8) Hypertension: (9) Diabetes: (10) Urgency incontinence: (11) GERD (gastroesophageal reflux disease): History of Present Illness Chief Complaint: UTI symptoms Primary Care Provider: Keith Hutchinson DO 82 yo female with PMHx of recurrent complicated ESBL UTI, CLL, h/o cervical cancer, chronic pancreatitis, HTN, HLD, anxiety, DM2, urinary incontinence, GERD, paroxysmal A Fib, and bilateral hydronephrosis presents with UTI symptoms. Pt was discharged from [facility] 2 days ago for similar symptoms. 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 During her previous stay, she was on ertapenem and discharged on cefdinir. She states upon discharge, she would still get intermittent dysuria. However, yesterday the dysuria was unbearable. She has urinary incontinence so she had constant burning. She also endorses some vulvovaginal itching. Denies headache, chest pain, sob, abd pain, N/V/D, constipation, inc. urinary frequency. She does have some bilateral flank pain as well. No h/o kidney stones. Allergies Allergy/AdvReac Type Severity Reaction Status Date / Time amoxicillin Allergy Severe Swelling Verified 01/16/23 15:38 of Lip/Tongue/Throat cefazolin Allergy Severe Hives Unverified 01/16/23 15:38 egg Allergy Severe Gastrointestinal Unverified 01/16/23 15:38 Upset nut - unspecified Allergy Severe Swelling Verified 01/16/23 15:38 of Lip/Tongue/Throat pineapple Allergy Severe Swelling Verified 01/16/23 15:38 of Lip/Tongue/Throat nitrofurantoin Allergy Mild tachycardia Verified 01/16/23 15:38 aspirin Allergy Unknown INCREASES Verified 01/16/23 15:38 BLEEDING acetaminophen [From Tylenol] AdvReac Severe liver bleed Verified 01/16/23 15:38 duloxetine AdvReac Severe SEVERE Verified 01/16/23 15:38 VOMITING caffeine AdvReac Intermediate racing Verified 01/16/23 15:38 heart lisinopril AdvReac Intermediate cough, Verified 01/16/23 15:38 white "stuff" all over lungs Sulfa (Sulfonamide AdvReac Intermediate Tinnitis Verified 01/16/23 15:38 Antibiotics) Home Medications Medication Instructions Recorded Confirmed Type amlodipine 5 mg tablet 5 mg PO BID 06/24/20 02/07/23 History glucosamine sulf dipot 1 cap PO QDL 06/24/20 02/07/23 History chlr,msm,chond 550 mg-C 30 mg-aleena 1 mg capsule (Glucosamine Chondroitin) magnesium oxide 400 mg (241.3 mg 400 mg PO BID 06/24/20 02/07/23 History magnesium) tablet omega 5-ebc-ydh-fish oil 1,200 mg 1 cap PO QDL 06/24/20 02/07/23 History (144 mg-216 mg) capsule (Fish Oil) ibrutinib 280 mg tablet (Imbruvica) 280 mg PO QAM 11/10/20 02/07/23 History multivitamin 1 tab PO QDL 11/10/20 02/07/23 History lancets 28 gauge (Prodigy Lancets) #300 ea 04/23/21 02/07/23 Rx ondansetron HCl 4 mg tablet 4 mg PO Q8H PRN Nausea #90 tabs 06/18/21 02/07/23 Rx losartan 25 mg tablet 25 mg PO DAILY 07/19/21 02/07/23 History garlic 100 mg tablet 100 mg PO DAILY 08/23/21 02/07/23 History metoprolol tartrate 25 mg tablet 12.5 mg PO BID #30 tabs 08/25/21 02/07/23 Rx cholecalciferol (vitamin D3) 25 1,000 unit PO QDL #30 tabs 11/13/21 02/07/23 Rx mcg (1,000 unit) tablet (Vitamin D3) ferrous sulfate 325 mg (65 mg 325 mg PO BID #180 tabs 12/11/21 02/07/23 Rx iron) tablet (FeroSul) ascorbic acid (vitamin C) 500 mg 500 mg PO BID 04/13/22 02/07/23 History tablet (Vitamin C) blood sugar diagnostic (Prodigy No #100 ea 04/18/22 02/07/23 Rx Coding strips) insulin glargine 100 unit/mL (3 26 unit (0.26 mL) subcut HS #15 mL 05/27/22 02/07/23 Rx mL) subcutaneous pen (Basaglar KwikPen U-100 Insulin) pen needle, diabetic 31 gauge x #100 ea 06/14/22 02/07/23 Rx 3/16" (BD Ultra-Fine Mini Pen Needle) potassium chloride 10 mEq 10 meq PO BID #180 caps 07/23/22 02/07/23 Rx capsule,extended release atorvastatin 10 mg tablet 10 mg PO HS #90 tabs 09/09/22 02/07/23 Rx insulin aspart U-100 100 unit/mL 7 unit (0.07 mL) subcut TID #30 mL 09/27/22 02/07/23 Rx subcutaneous solution (Novolog U-100 Insulin aspart) estradiol 0.01% (0.1 mg/gram) 0.5 appful vaginal .COMPLEX #42.5 10/09/22 02/07/23 Rx vaginal cream grams flash glucose sensor (FreeStyle #1 ea 11/06/22 02/07/23 Rx Vicente 2 Sensor kit) flash glucose sensor (FreeStyle #1 ea 11/06/22 02/07/23 Rx Vicente 2 Sensor kit) buspirone 15 mg tablet 15 mg PO TID #270 tabs 11/26/22 02/07/23 Rx calcium carbonate 600 mg calcium 600 mg PO DAILY 11/29/22 02/07/23 History (1,500 mg) tablet (Calcium) cranberry fruit concentrate 125 mg 250 mg PO DAILY 11/29/22 02/07/23 History disintegrating tablet nystatin-triamcinolone 100,000 1 applic topical BID #30 grams 12/09/22 02/07/23 Rx unit/gram-0.1 % topical ointment carboxymethylcellulose sodium 1 % 2 drp ophthalmic (eye) BID PRN Dry 12/17/22 02/07/23 History eye liquid gel drops Eye(S) cyanocobalamin (vitamin B-12) 1,000 mcg PO DAILY 12/17/22 02/07/23 History 1,000 mcg tablet (Vitamin B-12) lactobacillus combination no.4 3 3,000 mmu cells PO DAILY 12/17/22 02/07/23 History billion cell capsule (Probiotic) vibegron 75 mg tablet (Gemtesa) 75 mg PO DAILY 01/03/23 02/07/23 History cholestyramine (with sugar) 4 gram 4 g PO BID PRN Loose stools or 01/14/23 02/07/23 History powder for susp in a packet diarrhea. (Questran) methenamine hippurate 1 gram tablet 1 g PO Q12H 90 days #180 tabs 01/15/23 02/07/23 Rx d-mannose 500 mg capsule (AZO 500 mg PO DAILY 01/28/23 02/07/23 History D-Mannose) omeprazole 20 mg capsule,delayed 40 mg PO DAILY 01/28/23 02/07/23 History release ertapenem 1 gram solution for 1 g IV DAILY 6 days #1 ea 02/06/23 02/07/23 Rx injection linezolid 600 mg tablet 600 mg PO BID 6 days #12 tabs 02/06/23 02/07/23 Rx insulin syr/ndl U100 half morena 0.3 #300 ea 02/10/23 Rx mL 31 gauge x 5/16" (BD Insulin Syringe Ultra-Fine (half unit)) Past Med/Surg History Medical History (Updated 02/03/23 @ 05:04 by Walker Cunningham DO) Abdominal pain Abnormal EKG Accidental acetaminophen overdose Acute GI bleeding Acute GI bleeding Acute pyelonephritis Anxiety Bacteremia Bilateral hydronephrosis Bleeding per rectum BRBPR (bright red blood per rectum) Cataract Cervical cancer Chronic pancreatitis CLL (chronic lymphocytic leukemia) Diabetes Diarrhea DVT prophylaxis Elevated bilirubin Glaucoma Gross hematuria Guaiac positive stools History of cervical cancer Hypertension 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 Metastatic cancer to intra-abdominal lymph nodes Nut allergy Paroxysmal A-fib Peripheral neuropathy Poisoning by acemetacin Recurrent UTI Recurrent UTI Tick bite Transaminitis Urgency incontinence Surgical History H/O: hysterectomy S/P appendectomy S/P cataract surgery both eyes S/P cholecystectomy Family History Mother Heart disease Father Lung disease Prostate cancer Sister COVID Arthritis Uncle Myocardial infarction Heart disease Aunt Myocardial infarction Denies family history of Ovarian cancer Breast cancer Colorectal cancer Social History Smoking Status: Never smoker Second Hand Exposure: No; Do You Dip or Chew Tobacco: No; Hx Alcohol Use: No Hx Substance Use: No Preferred Language: Frisian Communication Ability: Effective Visual Impairment: Partially Limited Hearing Ability: Normal Admissions Clinician Required: No Beliefs That Will Affect Care: None marital status: Current Living Situation: Spouse Current Living Situation Comment: lives at home with current occupational status: retired current occupation: [employer] How many Children do You have: 1 other: 1 alive and 1 Feels Safe at Home: Yes Childhood Exposure to Second-Hand Smoke: No Dental Care, Regularly: No Physical Activity Frequency: Does not Exercise Seatbelt Use: always Sunscreen Use: No (hardly in sun d/t medicine ) Gender Identity: Female Assistive Devices: Glasses Review of Systems Review of Systems: All systems reviewed & are unremarkable except as noted in HPI & below Physical Exam Physical Exam: Constitutional: in no acute distress, pleasant and normal affect, intact memory. AOx3. Vitals as above. HEENT: No scleral injection or discharge. Moist mucous membranes. Neck: Supple without lymphadenopathy or thyromegaly. Trachea midline. Lungs: Clear to auscultation bilaterally with good effort. No wheezes/rales/rho nchi. Cardiac: Regular rate and rhythm. No murmurs. Trace bilateral lower extremity edema. 2+ distal peripheral pulses. Abdomen: Bowel sounds present. Soft and nondistended. +suprapubic/RLQ tender ness. Ni guarding or rebound. No hepatosplenomegaly. MSK: No cyanosis or clubbing. Extremities motor strength 5/5. Skin: No abnormal rashes, warm, dry. Neurologic: no focal deficits Results & Data Results & Data Vital Signs (Past 12 Hours) Vital Signs Temp Pulse Pulse Resp BP BP BP 02/03/23 04:00 75 14 151/82 H 02/03/23 03:00 74 19 163/75 H 02/03/23 02:17 76 02/03/23 02:40 80 20 160/121 H 02/03/23 02:38 81 20 02/03/23 02:01 79 20 171/88 H 02/03/23 01:19 36.8 C 76 18 146/74 H Pulse Ox O2 Del Method 02/03/23 04:00 92 Room Air 02/03/23 03:00 94 Room Air 02/03/23 02:17 02/03/23 02:40 93 Room Air 02/03/23 02:38 94 Room Air 02/03/23 02:01 93 Room Air 02/03/23 01:19 95 Room Air Laboratory Results Laboratory Results WBC 8.29 K/ul (4.8-10.8) 02/03/23 02:31 RBC 3.87 M/uL (4.20-5.40) L 02/03/23 02:31 Hgb 12.3 g/dl (12.0-16.0) 02/03/23 02:31 Hct 35.3 % (37.0-47.0) L 02/03/23 02:31 MCV 91.2 fL (80.0-100.0) 02/03/23 02:31 MCH 31.8 pg (25.0-34.0) 02/03/23 02:31 MCHC 34.8 g/dL (32.0-36.0) 02/03/23 02:31 RDW Std Deviation 44.1 fL (36.4-46.3) 02/03/23 02:31 RDW Coeff of Matthew 13.4 % (11.5-14.5) 02/03/23 02:31 Plt Count 164 K/uL (130-400) 02/03/23 02:31 MPV 10.4 fL (9.4-12.4) 02/03/23 02:31 Immature Gran % (Auto) 0.7 % 02/03/23 02:31 Neut % (Auto) 75.1 % 02/03/23 02:31 Lymph % (Auto) 14.6 % 02/03/23 02:31 [place] % (Auto) 7.6 % 02/03/23 02:31 Eos % (Auto) 1.6 % 02/03/23 02:31 Baso % (Auto) 0.4 % 02/03/23 02:31 Neut # (Auto) 6.23 K/uL (1.40-6.50) 02/03/23 02:31 Lymph # (Auto) 1.21 K/uL (1.2-3.4) 02/03/23 02:31 [place] # (Auto) 0.63 K/uL (0.11-0.59) H 02/03/23 02:31 Eos # (Auto) 0.13 K/uL (0-0.50) 02/03/23 02:31 Baso # (Auto) 0.03 K/uL (0-0.2) 02/03/23 02:31 Immature Gran # (Auto) 0.06 K/uL (0.01-0.20) 02/03/23 02:31 Sodium 139 mmol/L (136-145) 02/03/23 02:31 Potassium 3.9 mmol/L (3.5-5.1) 02/03/23 02:31 Chloride 107 mmol/L (98-107) 02/03/23 02:31 Carbon Dioxide 24 mmol/L (21-32) 02/03/23 02:31 Anion Gap 8 (3-11) 02/03/23 02:31 BUN 17 mg/dl (6-23) 02/03/23 02:31 Creatinine 0.97 mg/dl (0.6-1.2) 02/03/23 02:31 Est Cr Clr Drug Dosing Not Reportable 02/03/23 02:31 Est GFR ( Amer) 63.9 ml/min 02/03/23 02:31 Est GFR (Non-Af Amer) 55.2 ml/min 02/03/23 02:31 BUN/Creatinine Ratio 17.5 (10-20) 02/03/23 02:31 Glucose 172 mg/dl (70-99(Fasting)) H 02/03/23 02:31 Lactate 1.3 mmol/L (0.4-2.0) 02/03/23 02:31 Calcium 9.3 mg/dl (8.6-10.3) 02/03/23 02:31 Magnesium 1.5 mg/dl (1.7-2.4) L 02/03/23 02:31 Total Bilirubin 1.2 mg/dl (0.2-1.0) H 02/03/23 02:31 Direct Bilirubin 0.2 mg/dl (0-0.2) 02/03/23 02:31 AST 20 U/L (13-39) 02/03/23 02:31 ALT 29 U/L (7-52) 02/03/23 02:31 Alkaline Phosphatase 80 U/L (34-104) 02/03/23 02:31 Troponin I High Sens 7.0 pg/ml (0-14) 02/03/23 02:31 Total Protein 6.3 gm/dl (6.0-8.3) 02/03/23 02:31 Albumin 3.7 gm/dl (3.4-5.0) 02/03/23 02:31 Procalcitonin < 0.05 ng/ml (0-0.5) 02/03/23 02:31 Urine Color Dark Yellow 02/03/23 01:30 Urine Appearance Clear (Clear) 02/03/23 01:30 Urine pH 5.5 (4.5-7.5) 02/03/23 01:30 Ur Specific Anderson 1.007 (1.000-1.030) 02/03/23 01:30 Urine Protein Negative (Negative) 02/03/23 01:30 Urine Glucose (UA) Trace (Negative) H 02/03/23 01:30 Urine Ketones Negative (Negative) 02/03/23 01:30 Urine Blood Negative (Negative) 02/03/23 01:30 Urine Nitrite Positive (Negative) A 02/03/23 01:30 Urine Bilirubin Negative (Negative) 02/03/23 01:30 Urine Urobilinogen Negative (Negative) 02/03/23 01:30 Ur Leukocyte Esterase 3+ (Negative) H 02/03/23 01:30 Urine WBC (Auto) 10-30 /hpf (0-5) H 02/03/23 01:30 Urine RBC (Auto) 0-4 /hpf (0-4) 02/03/23 01:30 U Hyaline Cast (Auto) 1-5 /lpf (0-5) 02/03/23 01:30 U Epithel Cells (Auto) >30 /lpf (0-5) H 02/03/23 01:30 Urine Bacteria (Auto) Negative (Negative) 02/03/23 01:30 Ur Renal Epithelial Cell 0-5 /lpf (0-5) 02/03/23 01:30 Urine Yeast Budding w/ Hyphae (None Prsent) A 02/03/23 01:30 Supervising Physician Co-Signing Physician Notes Attending addendum: I have physically seen this patient, have supervised the medical residents activities, and agree with the H&P unless as otherwise noted. Assessment and Plan: Recurrent urinary tract infection/bilateral hydronephrosis Recent infections with ESBL E. coli, Klebsiella, VRE and floor: Resistant E. coli Place on daptomycin IV and ertapenem IV Follow urine culture and sensitivity IV fluids as noted Order repeat CT abdomen and pelvis Diabetes mellitus insulin and SSI as noted CLL- Following with oncology Hold ibrutinib while treating active infection Hypertension/atrial fibrillation- Continue amlodipine, losartan and metoprolol with hold parameters Remaining orders and notations as noted Resident Activity Tracking Resident Involvement: Resident Care Provided Care Provided: Adult Hospital Medicine
[2023-02-03] MEDS ORDERED: DEXTROSE 50% 50 ML SYRINGE IV PRN (06:03)
[2023-02-03] MEDS ORDERED: GLUCAGON FOR INJ 1 MG VIAL SQ PRN (06:03)
[2023-02-03] MEDS ORDERED: CARBOHYDRATES FOR HYPOGLYCEMIA PO PRN (06:03)
[2023-02-03] MEDS ORDERED: GLUCOSE 10 TAB/TUBE PO PRN (06:03)
[2023-02-03] MEDS ORDERED: ONDANSETRON 4 MG OD TAB PO PRN (06:03)
[2023-02-03] MEDS ORDERED: POLYETHYLENE (MIRALAX) 17 GM PACK PO PRN (06:03)
[2023-02-03] MEDS ORDERED: GLUCOSE 40% GEL 15 GM TUBE PO PRN (06:03)
[2023-02-03] MEDS ORDERED: Patient's HEIGHT &/or WEIGHT Needed STA (06:08)
--- NOTE | 2023-02-03 06:59 | CT Scan Report ---
CT abd pelvis wo con CLINICAL HISTORY: h/o hydronephrosis TECHNIQUE: Helical axial images of the abdomen and pelvis were obtained. Automated dose lowering tech niques and/or adjustment according to patient size were utilized for this exam. This exam was perfor med without intravenous contrast. CT DOSE: 1331.40 mGy.cm COMPARISON: Comparison is made to CT abdomen pelvis 01/12/2022 FINDINGS: Lower chest: Bibasilar atelectasis versus scarring is seen. Liver: Unremarkable. No focal lesions are seen. Gallbladder and biliary tree: Patient is status post cholecystectomy. No intra- or extrahepatic bilia ry ductal dilation. Pancreas: Redemonstration of punctate calcifications about a cystic lesion in the pancreatic head shameka suring up to 1.4 cm. Spleen: Unremarkable. Adrenals: Unremarkable. Kidneys and ureters: Bilateral hydronephrosis and hydroureter is seen with urothelial thickening. Thi s appears similar in extent to the prior exam. Bladder: Bilateral dysplastic appearing bladder with wall thickening diverticula are unchanged. A foc us of air is noted in the antidependent bladder. Reproductive organs: Patient is status post hysterectomy. Bowel: Patient is status post appendectomy. Lymph nodes Retroperitoneal: Subcentimeter lymph nodes are noted. Pelvic: Unremarkable. Mesenteric: Unremarkable. Peritoneum: Normal. Vessels: Atherosclerotic calcifications are seen. Abdominal wall: A fat-containing umbilical hernia is seen. Midline postsurgical changes are seen. Marcelino ateral fat-containing inguinal hernias are seen. Bones: Degenerative changes in the visualized spine. IMPRESSION: 1. 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 Mild thickeni ng of the ureteral romano is also unchanged, may be secondary to chronic hydroureteronephrosis however clinical correlation to exclude cystitis is recommended. 2. 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 ACT 112: Negative or not required by law. Electronically signed by: David Pineda M.D. 02/03/2023 6:56 AM
--- NOTE | 2023-02-03 07:02 | XRay Report ---
XR chest 1V portable CLINICAL HISTORY: Sepsis TECHNIQUE: Single frontal radiograph of the chest was obtained. Comparison: Comparison is made to chest radiograph 02/23/2021 FINDINGS: No lines and tubes are seen. Calcified aortic knob is seen. The lungs are clear. No evidence of pleur al effusion or pneumothorax. IMPRESSION: No acute abnormalities and in particular no radiographic evidence of pneumonia. ACT 112: Negative or not required by law. Electronically signed by: David Pineda M.D. 02/03/2023 7:00 AM
[2023-02-03] MEDS: ENOXAPARIN INJ 40 MG/0.4 ML SYR SQ SCH (08:02)
[2023-02-03] MEDS: MEROPENEM 500 MG in SYRINGE 0 ML IV SCH ×3 (08:02→23:45)
[2023-02-03] MEDS: DAPTOmycin 525 MG in SYRINGE 0 ML IV SCH (08:02)
[2023-02-03] MEDS: LOSARTAN POTASSIUM 25 MG TAB PO SCH (08:03)
[2023-02-03] MEDS: ADVANCED PROBIOTIC 1250 MG CAPSULE PO SCH (08:03)
[2023-02-03] MEDS: busPIRone 15 MG TAB PO SCH ×3 (08:03→21:30)
[2023-02-03] MEDS: METOPROLOL TARTRATE 25 MG TAB PO SCH ×2 (08:03→21:29)
[2023-02-03] MEDS: VIBEGRON 75 MG TAB PO SCH (08:03)
[2023-02-03] MEDS: amLODIPine BESYLATE 5 MG TAB PO SCH ×2 (08:04→21:30)
[2023-02-03] MEDS: PANTOprazole 40 MG TAB PO SCH (08:04)
[2023-02-03] MEDS: FLUCONAZOLE 50 MG TAB PO SCH (08:54)
[2023-02-03] MEDS: INSULIN ASPART PER UNIT CHARGE SC SCH ×4 (08:57→21:28)
--- NOTE | 2023-02-03 09:01 | Hospitalist Progress Note ---
Date of Service February 03, 2023 Assessment & Plan (1) Recurrent UTI: Plan: 82 yo female with PMHx of recurrent complicated ESBL UTI, CLL, h/o cervical cancer, chronic pancreatitis, HTN, HLD, anxiety, DM2, urinary incontinence, GERD, paroxysmal A Fib, and bilateral hydronephrosis presents with UTI symptoms. Complicated multi-drug resistant UTI, recurrent -Pt readmitted with UTI and has known history of recurrent UTI, outlined below Past UTI cultures: --01/25/2023: E. Coli resistant to ciprofloxacin and levofloxacin 01/03/2023: VRE sensitive to Dapto, resistant to vancomycin, tetracycline, ciprofloxacin, levofloxacin, ampicillin 12/17/2022: Pansensitive Klebsiella 09/16/2022: ESBL E. coli sensitive to ertapenem, meropenem, Zosyn. A amox/clav sensitive but amp/sulbactam resistant 07/09/2022: ESBL E. coli, Bactrim sensitive, Zosyn sensitive, meropenem/ertapenem sensitive. Otherwise intermediate or resistant. Sensitivities 01/23/2022: E. coli, ampicillin and Unasyn resistant 06/18/2021 and 07/19/2021: Enterobacter cloaca, Rocephin resistant Carbapenem sent 01/2021: Citrobacter casiano sensitive 06/24/2020: ESBL Proteus mirabilis sensitive to ertapenem/meropenem, Levaquin, Zosyn, and amikacin -MRSA nares negative -UCx, BCx pending -CTAP negative for pyelonephritis, though noted b/l hydronephrosis -Rocephin x1 in ED, now on meropenem and daptomycin -Adjust per sensitivities -Infectious disease consulted, awaiting recommendations Yeast infection -UA with budding hyphae. Unclear whether this is vulvovaginal or urinary source. She does have one previous microscopy with rare young -Will treat as vulvovaginal for now until UCx results -Diflucan 150mg q72h x 2 doses Hypomagnesemia -Mg 1.5 on admission, repleted -Monitor DM2 -Continue home insulin bolus regimen + SSI -BSG stable CLL -Follows with oncology -Hold ibrutinib while treating active infection -Monitor CBC Anxiety -Continue buspirone HLD -Hold statin while on daptomycin HTN -Stable, controlled -Continue amlodipine, losartan, metoprolol Paroxysmal atrial fibrillation -Currently in NSR -Continue metoprolol -Eliquis previously discontinued due to bleeding/EL -No anticoagulation at present GERD -Continue Protonix Urinary incontinence -Continue Vibegron DVT ppx: Lovenox FEN/GI: DM2 Code Status: full Dispo: Medical/surgical with telemetry (2) Urinary tract infection symptoms: (3) CLL (chronic lymphocytic leukemia): (4) History of cervical cancer: (5) Anxiety: (6) Paroxysmal A-fib: (7) Dysuria: (8) Hypertension: (9) Diabetes: (10) Urgency incontinence: (11) GERD (gastroesophageal reflux disease): Admission and Anticipated Discharge Date Admission Date: February 03, 2023 Supervising Physician Co-Signing Physician Notes Attending attestation Pt seen and examined in concert with Dr. Roa. In agreement with the documented findings as noted in the resident documentation with any exceptions or additions as noted here. Resting comfortably in bed without acute complaint at present. On examination, S1/S2 nl RRR no MCG. CTAB. Abd NT/ND BS+ve Recurrent UTI w/ h/o MDR - ID consult - f/u UCx, BCx and continue coverage at present with narrow with more information Yeast infection - monitor for symptoms s/p tx w/ diflucan as noted Else see resident documentation as noted. Subjective Acute events overnight- none. Pt examined at bedside. Feels well, reports her dysuria and urinary frequency symptoms have improved. Denies any new complaints. Review of Systems Review of Systems: Per HPI Physical Exam Physical Exam: Constitutional: in no acute distress, pleasant and normal affect, intact memory. Vitals as above. HEENT: No scleral injection or discharge. Moist mucous membranes. Neck: Supple without lymphadenopathy or thyromegaly. Trachea midline. Lungs: Clear to auscultation bilaterally with good effort. No wheezes/rales/rhonchi. Cardiac: Regular rate and rhythm. No murmurs. Trace bilateral lower extremity edema. 2+ distal peripheral pulses. Abdomen: Bowel sounds present. Soft and nondistended. +mild suprapubic/RLQ tenderness. No guarding or rebound. No hepatosplenomegaly. MSK: No cyanosis or clubbing. Extremities motor strength 5/5. Skin: No abnormal rashes, warm, dry. Neurologic: no focal deficits Results & Data Results & Data Vital Signs (Past 12 Hours) Vital Signs Temp Pulse Pulse Pulse Resp BP BP 02/03/23 08:33 36.9 C 74 16 156/72 H 02/03/23 07:14 76 02/03/23 06:54 36.8 C 77 18 168/84 H 02/03/23 06:43 78 02/03/23 04:00 75 14 151/82 H 02/03/23 03:00 74 19 163/75 H 02/03/23 02:17 76 02/03/23 02:40 80 20 160/121 H 02/03/23 02:38 81 20 02/03/23 02:01 79 20 02/03/23 01:19 36.8 C 76 18 146/74 H BP Pulse Ox O2 Del Method 02/03/23 08:33 95 Room Air 02/03/23 07:14 02/03/23 06:54 94 Room Air 02/03/23 06:43 02/03/23 04:00 92 Room Air 02/03/23 03:00 94 Room Air 02/03/23 02:17 02/03/23 02:40 93 Room Air 02/03/23 02:38 94 Room Air 02/03/23 02:01 171/88 H 93 Room Air 02/03/23 01:19 95 Room Air Resident Activity Tracking Resident Involvement: Resident Care Provided Care Provided: Adult Hospital Medicine
--- NOTE | 2023-02-03 19:30 | Electrocardiogram Report ---
Test Reason : Blood Pressure : / mmHG Vent. Rate : 078 BPM Atrial Rate : 078 BPM P-R Int : 200 ms QRS Dur : 078 ms QT Int : 392 ms P-R-T Axes : 059 -02 036 degrees QTc Int : 446 ms Normal sinus rhythm Normal ECG When compared with ECG of 04-SEP-2021 15:48, Premature ventricular complexes are no longer Present Confirmed by Ozzy Olsen ([id number]) on 02/03/2023 7:30:26 PM Referred By: REFERRED SELF Confirmed By:David Olsen
[2023-02-03] MEDS ORDERED: LANTUS PER UNIT CHARGE SQ SCH (21:00)
[2023-02-04] MEDS: MEROPENEM 500 MG in SYRINGE 0 ML IV SCH (06:06)
[2023-02-04] MEDS: ENOXAPARIN INJ 40 MG/0.4 ML SYR SQ SCH (06:07)
[2023-02-04] MEDS: DAPTOmycin 525 MG in SYRINGE 0 ML IV SCH (06:39)
[2023-02-04 08:04] LABS: Hematocrit (blood only) 33.9 % (37.0-47.0); Hemoglobin 11.6 g/dl (12.0-16.0); Mean Corpuscular Hemoglobin 31.8 pg (25.0-34.0); Mean Corpuscular Hgb Conc 34.2 g/dL (32.0-36.0); Mean Corpuscular Volume 92.9 fL (80.0-100.0); Mean Platelet Volume 10.8 fL (9.4-12.4); Platelet Count 165 K/uL (130-400); RDW Coefficient of Variation 13.4 % (11.5-14.5); RDW Standard Deviation 45.3 fL (36.4-46.3); Red Blood Count 3.65 M/uL (4.20-5.40); White Blood Count 7.07 K/ul (4.8-10.8)
[2023-02-04 08:18] LABS: BUN Creatinine Ratio 17.4 (10-20); Creatinine Clr Calc Pharmacy 44.9 ml/min; Est GFR (Non-African American) 44.9 ml/min; Magnesium 1.7 mg/dl (1.7-2.4); Potassium 3.6 mmol/L (3.5-5.1)
[2023-02-04] MEDS: amLODIPine BESYLATE 5 MG TAB PO SCH ×2 (08:27→21:28)
[2023-02-04] MEDS: ADVANCED PROBIOTIC 1250 MG CAPSULE PO SCH (08:28)
[2023-02-04] MEDS: LOSARTAN POTASSIUM 25 MG TAB PO SCH (08:28)
[2023-02-04] MEDS: busPIRone 15 MG TAB PO SCH ×3 (08:28→21:29)
[2023-02-04] MEDS: VIBEGRON 75 MG TAB PO SCH (08:29)
[2023-02-04] MEDS: PANTOprazole 40 MG TAB PO SCH (08:29)
[2023-02-04] MEDS: METOPROLOL TARTRATE 25 MG TAB PO SCH ×2 (08:29→21:30)
[2023-02-04] MEDS: INSULIN ASPART PER UNIT CHARGE SC SCH ×4 (08:39→21:29)
--- NOTE | 2023-02-04 10:32 | Infectious Disease Consult ---
Date of Consultation February 04, 2023 Assessment & Plan (1) Recurrent UTI: (2) Bilateral hydronephrosis: Plan Micro: 02/03 BCx x2: NGTD 02/03 UA 10-30 WBCs. UCx >3 types of organisms present, mixed probable skin issa 01/25 UCx: >100K E coli (R cipro, levo. Otherwise S) 01/11 UCx: >100K ESBL E coli (R cipro, levo, TMP/SMX. S tr, erta, nitro, pip/tazo) 01/03 UCx: >100K VRE (R cipro, levo, tetra. I nitrofurantoin. S dapto.) 12/17 UCx: >100K Kleb pneumo (casiano-sensitive) 11/25 UCx: 10-100K ESBL E coli (R cipro, levo, TMP/SMX. S tr, erta, nitro, pip/tazo) 10/04 UCx: >100K ESBL E coli, 10-100K 2nd type of ESBL E coli, >100K Lactobacillus 09/16 UCx: >100K ESBL E coli (R cipro, levo, TMP/SMX, gent. S amox/clav, erta, tr, nitrofurantoin, pip/tazo.) 08/22 UCx: >100K ESBL E coli (R cipro, levo, gent. S tr, nitro, pip/tazo, tobra, TMP/SMX, erta), >100K 2nd type of E coli (R amp, amp/sul, cipro, gent, levo, nitro. S cefaz, cefepime, ceftriaxone, tobra, TMP/SMX) 08/15 Ucx: >100K ESBL E coli, >100K 2nd type of ESBL E coli 07/09 UCx: >100K ESBL E coli (R cipro, levo, gent. S erta, tr, nitro, TMP/SMX, pip/tazo) Abx: Daptomycin 02/03 - present Meropenem 02/03 - present Ceftriaxone 02/03 Problems: #Recurrent UTIs #Multiple antibiotic allergies: Amoxicillin--swelling of lip/tongue/throat. Cefa zolin--hives. Nitrofurantoin--tachycardia. Sulfa--tinnitus 82 yo F with history of cervical cancer s/p total hysterectomy and radiation (1990), CLL, chronic pancreatitis, DM, Afib, urinary incontinence, bilateral hydronephrosis and R vesicoureteral reflux, recurrent UTIs who presented on 02/03 with urethral pain. Denies fevers or flank pain. She has multiple recent presentations for UTIs, summarized in HPI of initial consult note 02/03/23. Multiple recent ertapenem courses: around mid-Jun x 10 days, 10/10-10/24, 11/25- 12/08, 01/11-01/13. Pt has been presenting with recurrent UTI symptoms shortly after finishing prior course of antibiotics. She just recently finished a course of cefdinir for non-ESBL E coli. On presentation, pt was afebrile, without leukocytosis or CHRIST, normal lactate and procalcitonin. UA 10-30 WBCs. UCx grew mixed issa. CT A/P without contrast showed: bilateral hydronephrosis and hydroureter again seen with a small hyperplastic bladder, mild thickening of ureteral romano also unchanged, may be secondary to chronic hydroureteronephrosis however clinical correlation to exclude cystitis is recommended. Patient has difficulty describing her urinary symptoms, stating that they are on and off. She feels that her symptoms improve with each dose of antibiotic, then return a little before she is due for her next dose, which is unusual. She thinks she has only had maximum ~1 week without urinary symptoms in recent months. Recommendations: -Pt continues to have recurrent UTIs despite multiple antibiotic courses. This raises concern for underlying urologic abnormalities/poor emptying predisposing her to UTIs. CT does show chronic bilateral hydronephrosis, hydroureter, small hyperplastic bladder, ureteral wall thickening. Urology evaluation on 01/12/23 felt that stent for hydronephrosis will increase likelihood of upper tract infection. Also consider colonization, with chronic non-infectious urinary symptoms--it is unusual that her symptoms would be on/off and improve with each dose of antibiotic, then return a little before she is due for her next dose. -UCx here shows mixed issa. Ordered a repeat UA with reflex urine culture. -Can continue daptomycin for now -Changed meropenem to ertapenem (do not think we need Pseudomonal coverage) Will continue to follow. Please page [facility] with further questions. Consultation Information Consultation was provided via telemedicine using two-way real-time interactive telecommunication between the patient and the telemedicine provider. For the duration of the visit, the provider was performing the assessment from a different facility than the patient. This includesuse of bluetooth stethoscope forauscultationperformed by the telepresenter that the telemedicine provider can hear if described in the physical exam. Mid Level Developer contact information: Please call [facility] [phone]. (Phone Number For Physician Use Only) After establishing a telemedicine visit, patient was: Patient was verified with two unique identifiers, Patient/authorized rep acknowledged consent and understanding and Gave permission to continue telehealth session Time Spent with Patient: Initial => 40 min History of Present Illness Reason for Consultation: recurrent UTI, MDRO Requesting Physician: Dr. Yadav Attending Physician: Heraclio Yadav MD History of Present Illness 82 yo F with history of cervical cancer s/p total hysterectomy and radiation (1990), CLL, chronic pancreatitis, DM, Afib, urinary incontinence, bilateral hydronephrosis and R vesicoureteral reflux, recurrent UTIs who presented on 02/03 with UTI symptoms. She describes a pain in her urethra. Denies fevers or flank pain. She has multiple recent presentations for UTIs, summarized below: 07/12-07/15: Admitted to [facility]. Outpatient 07/09 UCx with >100K ESBL E coli. Treated with ertapenem x 10 days. 08/15 Ucx: >100K ESBL E coli, >100K 2nd type of ESBL E coli. Unknown treatment. 08/22 UCx: >100K ESBL E coli, >100K 2nd type of E coli. Treated with TMP/SMX. 09/16 PCP visit. UCx with >100K ESBL E coli. Unknown treatment. 10/04 UCx: >100K ESBL E coli, 10-100K 2nd type of ESBL E coli, >100K Lactobacillus. Treated with ertapenem x 14 days through 10/24. 11/25-11/28: Admitted to [facility] with UTI after just finishing a course of TMP/SMX. 11/25 UCx with 10-100K ESBL E coli. Discharged with ertapenem 1 g daily through 12/08 12/17-12/22: Admitted to [facility] with dysuria. 12/17 UCx with >100K Kleb pneumo (casiano- sensitive). Treated with meropenem initially, then transitioned to ceftriaxone 2 g IV daily x 2 weeks through 01/02/23. 01/03 PCP visit. UCx: >100K VRE Unclear if treated. 01/11-01/13: Admitted to [facility]. 01/11 UCx with >100K ESBL E coli. Treated with meropenem/ertapenem x 3 days. Urology did not recommend stenting--felt there would be no benefit, and would increase risk of upper tract infection. 01/25-01/27: Admitted to [facility]. 01/25 UCx with >100K E coli. Treated with ertapenem while inpatient, discharged on cefdinir 300 mg twice daily x 5 days. On presentation, pt was afebrile, hypertensive. Labs showed WBC 8.29, Cr 0.97, normal lactate, procalcitonin <0.05. UA 10-30 WBCs. UCx grew mixed issa. CT A/P without contrast showed: bilateral hydronephrosis and hydroureter again seen with a small hyperplastic bladder, mild thickening of ureteral romano also unchanged, may be secondary to chronic hydroureteronephrosis however clinical correlation to exclude cystitis is recommended. Patient has difficulty describing her urinary symptoms, stating that they are on and off. She feels that her symptoms improve with each dose of antibiotic, then return a little before she is due for her next dose. Allergies Allergy/AdvReac Type Severity Reaction Status Date / Time amoxicillin Allergy Severe Swelling Verified 01/16/23 15:38 of Lip/Tongue/Throat cefazolin Allergy Severe Hives Unverified 01/16/23 15:38 egg Allergy Severe Gastrointestinal Unverified 01/16/23 15:38 Upset nut - unspecified Allergy Severe Swelling Verified 01/16/23 15:38 of Lip/Tongue/Throat pineapple Allergy Severe Swelling Verified 01/16/23 15:38 of Lip/Tongue/Throat nitrofurantoin Allergy Mild tachycardia Verified 01/16/23 15:38 aspirin Allergy Unknown INCREASES Verified 01/16/23 15:38 BLEEDING acetaminophen [From Tylenol] AdvReac Severe liver bleed Verified 01/16/23 15:38 duloxetine AdvReac Severe SEVERE Verified 01/16/23 15:38 VOMITING caffeine AdvReac Intermediate racing Verified 01/16/23 15:38 heart lisinopril AdvReac Intermediate cough, Verified 01/16/23 15:38 white "stuff" all over lungs Sulfa (Sulfonamide AdvReac Intermediate Tinnitis Verified 01/16/23 15:38 Antibiotics) Home Medications Medication Instructions Recorded Confirmed Type amlodipine 5 mg tablet 5 mg PO BID 06/24/20 01/28/23 History glucosamine sulf dipot 1 cap PO QDL 06/24/20 01/28/23 History chlr,msm,chond 550 mg-C 30 mg-aleena 1 mg capsule (Glucosamine Chondroitin) magnesium oxide 400 mg (241.3 mg 400 mg PO BID 06/24/20 01/28/23 History magnesium) tablet omega 0-tcx-leo-fish oil 1,200 mg 1 cap PO QDL 06/24/20 01/28/23 History (144 mg-216 mg) capsule (Fish Oil) ibrutinib 280 mg tablet (Imbruvica) 280 mg PO QAM 11/10/20 01/28/23 History multivitamin 1 tab PO QDL 11/10/20 01/28/23 History lancets 28 gauge (Prodigy Lancets) #300 ea 04/23/21 01/28/23 Rx ondansetron HCl 4 mg tablet 4 mg PO Q8H PRN Nausea #90 tabs 06/18/21 01/28/23 Rx losartan 25 mg tablet 25 mg PO DAILY 07/19/21 01/28/23 History garlic 100 mg tablet 100 mg PO DAILY 08/23/21 01/28/23 History metoprolol tartrate 25 mg tablet 12.5 mg PO BID #30 tabs 08/25/21 01/28/23 Rx cholecalciferol (vitamin D3) 25 1,000 unit PO QDL #30 tabs 11/13/21 01/28/23 Rx mcg (1,000 unit) tablet (Vitamin D3) ferrous sulfate 325 mg (65 mg 325 mg PO BID #180 tabs 12/11/21 01/28/23 Rx iron) tablet (FeroSul) ascorbic acid (vitamin C) 500 mg 500 mg PO BID 04/13/22 01/28/23 History tablet (Vitamin C) blood sugar diagnostic (Prodigy No #100 ea 04/18/22 01/28/23 Rx Coding strips) insulin glargine 100 unit/mL (3 26 unit (0.26 mL) subcut HS #15 mL 05/27/22 01/28/23 Rx mL) subcutaneous pen (Basaglar KwikPen U-100 Insulin) pen needle, diabetic 31 gauge x #100 ea 06/14/22 01/28/23 Rx 3/16" (BD Ultra-Fine Mini Pen Needle) potassium chloride 10 mEq 10 meq PO BID #180 caps 07/23/22 01/28/23 Rx capsule,extended release atorvastatin 10 mg tablet 10 mg PO HS #90 tabs 09/09/22 01/28/23 Rx insulin aspart U-100 100 unit/mL 7 unit (0.07 mL) subcut TID #30 mL 09/27/22 01/28/23 Rx subcutaneous solution (Novolog U-100 Insulin aspart) estradiol 0.01% (0.1 mg/gram) 0.5 appful vaginal .COMPLEX #42.5 10/09/22 01/28/23 Rx vaginal cream grams flash glucose sensor (FreeStyle #1 ea 11/06/22 01/28/23 Rx Vicente 2 Sensor kit) flash glucose sensor (FreeStyle #1 ea 11/06/22 01/28/23 Rx Vicente 2 Sensor kit) buspirone 15 mg tablet 15 mg PO TID #270 tabs 11/26/22 01/28/23 Rx calcium carbonate 600 mg calcium 600 mg PO DAILY 11/29/22 01/28/23 History (1,500 mg) tablet (Calcium) cranberry fruit concentrate 125 mg 250 mg PO DAILY 11/29/22 01/28/23 History disintegrating tablet nystatin-triamcinolone 100,000 1 applic topical BID #30 grams 12/09/22 01/28/23 Rx unit/gram-0.1 % topical ointment carboxymethylcellulose sodium 1 % 2 drp ophthalmic (eye) BID PRN Dry 12/17/22 01/28/23 History eye liquid gel drops Eye(S) cyanocobalamin (vitamin B-12) 1,000 mcg PO DAILY 12/17/22 01/28/23 History 1,000 mcg tablet (Vitamin B-12) lactobacillus combination no.4 3 3,000 mmu cells PO DAILY 12/17/22 01/28/23 History billion cell capsule (Probiotic) vibegron 75 mg tablet (Gemtesa) 75 mg PO DAILY 01/03/23 01/28/23 History cholestyramine (with sugar) 4 gram 4 g PO BID PRN Loose stools or 01/14/23 01/28/23 History powder for susp in a packet diarrhea. (Questran) methenamine hippurate 1 gram tablet 1 g PO Q12H 90 days #180 tabs 01/15/23 01/28/23 Rx d-mannose 500 mg capsule (AZO 500 mg PO DAILY 01/28/23 01/28/23 History D-Mannose) omeprazole 20 mg capsule,delayed 40 mg PO DAILY 01/28/23 01/28/23 History release insulin syr/ndl U100 half morena 0.3 #300 ea 02/03/23 Rx mL 31 gauge x 5/16" (BD Insulin Syringe Ultra-Fine (half unit)) Patient History Medical History (Updated 02/03/23 @ 05:04 by Walker Cunningham DO) Abdominal pain Abnormal EKG Accidental acetaminophen overdose Acute GI bleeding Acute GI bleeding Acute pyelonephritis Anxiety Bacteremia Bilateral hydronephrosis Bleeding per rectum BRBPR (bright red blood per rectum) Cataract Cervical cancer Chronic pancreatitis CLL (chronic lymphocytic leukemia) Diabetes Diarrhea DVT prophylaxis Elevated bilirubin Glaucoma Gross hematuria Guaiac positive stools History of cervical cancer Hypertension 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 Metastatic cancer to intra-abdominal lymph nodes Nut allergy Paroxysmal A-fib Peripheral neuropathy Poisoning by acemetacin Recurrent UTI Recurrent UTI Tick bite Transaminitis Urgency incontinence Surgical History H/O: hysterectomy S/P appendectomy S/P cataract surgery both eyes S/P cholecystectomy Family History Mother Heart disease Father Lung disease Prostate cancer Sister COVID Arthritis Uncle Myocardial infarction Heart disease Aunt Myocardial infarction Denies family history of Ovarian cancer Breast cancer Colorectal cancer Social History Smoking Status: Never smoker Second Hand Exposure: No; Do You Dip or Chew Tobacco: No; Hx Alcohol Use: No Hx Substance Use: No Preferred Language: Kyrgyz Communication Ability: Effective Visual Impairment: Partially Limited Hearing Ability: Normal Taker Off Braker Machine Required: No Beliefs That Will Affect Care: None marital status: Current Living Situation: Spouse Current Living Situation Comment: lives at home with current occupational status: retired current occupation: [employer] How many Children do You have: 1 Other Information That Helps Us Care for You: No other: 1 alive and 1 Feels Safe at Home: Yes Safety Concerns: Feels Safe At This Time Childhood Exposure to Second-Hand Smoke: No Dental Care, Regularly: No Physical Activity Frequency: Does not Exercise Seatbelt Use: always Sunscreen Use: No (hardly in sun d/t medicine ) Gender Identity: Female Assistive Devices: Glasses Review of System A complete ROS was performed and is negative except as mentioned in the HPI. Physical Exam Physical Exam: GEN: Well-appearing, in NAD. RESP: No increased work of breathing ABD: Soft, non-distended. Non-tender to palpation. BACK: No CVA tenderness NEURO: Alert and oriented. Answers all questions appropriately. Speech not slurred. PSYCH: Normal mood, affect appropriate. Results & Data Vital Signs (Past 12 Hours) Vital Signs Temp Pulse Pulse Resp BP Pulse Ox O2 Del Method 02/04/23 08:03 36.7 C 74 16 149/67 H 91 Room Air 02/04/23 07:42 77 02/04/23 04:10 36.7 C 77 18 141/92 H 93 Room Air 02/04/23 01:54 76 02/04/23 00:26 36.3 C L 83 20 170/79 H 95 Room Air Laboratory Results Short CBC 02/04/23 Range/Units 07:32 WBC 7.07 (4.8-10.8) K/ul Hgb 11.6 L (12.0-16.0) g/dl Hct 33.9 L (37.0-47.0) % Plt Count 165 (130-400) K/uL BMP 02/04/23 07:32 Sodium 140 Potassium 3.6 Chloride 107 Carbon Dioxide 25 BUN 20 Creatinine 1.15 Glucose 157 H Calcium 9.0 Diagnostic Findings Chest X-Ray 02/03/23 01:42 XR chest 1V portable CLINICAL HISTORY: Sepsis TECHNIQUE: Single frontal radiograph of the chest was obtained. Comparison: Comparison is made to chest radiograph 02/23/2021 FINDINGS: No lines and tubes are seen. Calcified aortic knob is seen. The lungs are clear. No evidence of pleural effusion or pneumothorax. IMPRESSION: No acute abnormalities and in particular no radiographic evidence of pneumonia. ACT 112: Negative or not required by law. Electronically signed by: David Pineda M.D. 02/03/2023 7:00 AM Abdomen/Pelvis CT 02/03/23 05:05 CT abd pelvis wo con CLINICAL HISTORY: h/o hydronephrosis TECHNIQUE: Helical axial images of the abdomen and pelvis were obtained. Automated dose lowering techniques and/or adjustment according to patient size were utilized for this exam. This exam was performed without intravenous contrast. CT DOSE: 1331.40 mGy.cm COMPARISON: Comparison is made to CT abdomen pelvis 01/12/2022 FINDINGS: Lower chest: Bibasilar atelectasis versus scarring is seen. Liver: Unremarkable. No focal lesions are seen. Gallbladder and biliary tree: Patient is status post cholecystectomy. No intra- or extrahepatic biliary ductal dilation. Pancreas: Redemonstration of punctate calcifications about a cystic lesion in the pancreatic head measuring up to 1.4 cm. Spleen: Unremarkable. Adrenals: Unremarkable. Kidneys and ureters: Bilateral hydronephrosis and hydroureter is seen with urothelial thickening. This appears similar in extent to the prior exam. Bladder: Bilateral dysplastic appearing bladder with wall thickening diverticula are unchanged. A focus of air is noted in the antidependent bladder. Reproductive organs: Patient is status post hysterectomy. Bowel: Patient is status post appendectomy. Lymph nodes Retroperitoneal: Subcentimeter lymph nodes are noted. Pelvic: Unremarkable. Mesenteric: Unremarkable. Peritoneum: Normal. Vessels: Atherosclerotic calcifications are seen. Abdominal wall: A fat-containing umbilical hernia is seen. Midline postsurgical changes are seen. Bilateral fat-containing inguinal hernias are seen. Bones: Degenerative changes in the visualized spine. IMPRESSION: 1. 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 Mild thickening of the ureteral romano is also unchanged, may be secondary to chronic hydroureteronephrosis however clinical correlation to exclude cystitis is recommended. 2. 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 ACT 112: Negative or not required by law. Electronically signed by: David Pineda M.D. 02/03/2023 6:56 AM Medications Administered Current Inpatient Medications Acetaminophen (Acetaminophen 325 Mg Tab) 650 mg PO Q4H PRN PRN Reason: Pain or Fever Stop: 03/05/23 06:02 Amlodipine Besylate (Amlodipine Besylate 5 Mg Tab) 5 mg PO BID [facility] Stop: 03/05/23 08:59 Last Admin: 02/04/23 08:27 Dose: 5 mg Buspirone HCl (Buspirone 15 Mg Tab) 15 mg PO TID [facility] Stop: 03/05/23 08:59 Last Admin: 02/04/23 08:28 Dose: 15 mg Dextrose (Dextrose 50% 50 Ml Syringe) 25 - 50 ml IV UD PRN; Protocol PRN Reason: Hypoglycemia Protocol Stop: 03/05/23 06:02 Enoxaparin Sodium (Enoxaparin Inj 40 Mg/0.4 Ml Syr) 40 mg SQ Q24H [facility] Stop: 03/05/23 06:59 Last Admin: 02/04/23 06:07 Dose: 40 mg Fluconazole (Fluconazole 50 Mg Tab) 150 mg PO Q72H [facility] Stop: 02/06/23 07:31 Last Admin: 02/03/23 08:54 Dose: 150 mg Glucagon (Glucagon For Inj 1 Mg Vial) 1 mg SQ UD PRN; Protocol PRN Reason: Hypoglycemia Protocol Stop: 03/05/23 06:02 Glucose (Glucose 10 Tab/Tube) 4 - 8 tab PO UD PRN; Protocol PRN Reason: Hypoglycemia Treatment Stop: 03/05/23 06:02 Glucose (Glucose 40% Gel 15 Gm Tube) 15 - 30 gm PO UD PRN; Protocol PRN Reason: Hypoglycemia Protocol Stop: 03/05/23 06:02 Meropenem 500 mg/ Syringe 10 mls @ 2 mls/min IV Q8H [facility]; Protocol Stop: 02/13/23 06:59 Last Admin: 02/04/23 06:06 Dose: 2 mls/min Daptomycin 675 mg/ Syringe 13.5 mls @ 6.75 mls/min IV Q24H [facility]; Protocol Stop: 02/15/23 06:59 Insulin Aspart (Insulin Aspart Per Unit Charge) 0 units SC ACHS [facility] Stop: 03/05/23 07:29 Last Admin: 02/04/23 08:39 Dose: 6 units Insulin Glargine (Lantus Per Unit Charge) 26 units SQ HS [facility] Stop: 03/05/23 20:59 Last Admin: 02/03/23 21:29 Dose: 26 units Lactobacillus Acidophilus (Advanced Probiotic 1250 Mg Capsule) 2 cap PO DAILY [facility] Stop: 03/05/23 08:59 Last Admin: 02/04/23 08:28 Dose: 2 cap Losartan Potassium (Losartan Potassium 25 Mg Tab) 25 mg PO DAILY [facility] Stop: 03/05/23 08:59 Last Admin: 02/04/23 08:28 Dose: 25 mg Metoprolol Tartrate (Metoprolol Tartrate 25 Mg Tab) 12.5 mg PO BID [facility] Stop: 03/05/23 08:59 Last Admin: 02/04/23 08:29 Dose: 12.5 mg Miscellaneous (Carbohydrates For Hypoglycemia ) 15 - 30 gm PO UD PRN PRN Reason: Hypoglycemia Protocol Stop: 03/05/23 06:02 Ondansetron HCl (Ondansetron 4 Mg Od Tab) 4 mg PO Q6H PRN PRN Reason: Nausea Stop: 03/05/23 06:02 Pantoprazole Sodium (Pantoprazole 40 Mg Tab) 40 mg PO DAILY [facility] Stop: 03/05/23 08:59 Last Admin: 02/04/23 08:29 Dose: 40 mg Polyethylene Glycol (Polyethylene (Miralax) 17 Gm Pack) 17 gm PO DAILY PRN PRN Reason: Constipation Stop: 03/05/23 06:02 Vibegron (Vibegron 75 Mg Tab) 75 mg PO DAILY [facility] Stop: 03/05/23 08:59 Last Admin: 02/04/23 08:29 Dose: 75 mg
--- NOTE | 2023-02-04 11:14 | Hospitalist Progress Note ---
Date of Service February 04, 2023 Assessment & Plan (1) Recurrent UTI: Plan: 82 yo female with PMHx of recurrent complicated ESBL UTI, CLL, h/o cervical cancer, chronic pancreatitis, HTN, HLD, anxiety, DM2, urinary incontinence, GERD, paroxysmal A Fib, and bilateral hydronephrosis presents with UTI symptoms. Complicated multi-drug resistant UTI, recurrent -Pt readmitted with UTI and has known history of recurrent UTI, outlined below Past UTI cultures: --01/25/2023: E. Coli resistant to ciprofloxacin and levofloxacin 01/03/2023: VRE sensitive to Dapto, resistant to vancomycin, tetracycline, ciprofloxacin, levofloxacin, ampicillin 12/17/2022: Pansensitive Klebsiella 09/16/2022: ESBL E. coli sensitive to ertapenem, meropenem, Zosyn. A amox/clav sensitive but amp/sulbactam resistant 07/09/2022: ESBL E. coli, Bactrim sensitive, Zosyn sensitive, meropenem/ertapenem sensitive. Otherwise intermediate or resistant. Sensitivities 01/23/2022: E. coli, ampicillin and Unasyn resistant 06/18/2021 and 07/19/2021: Enterobacter cloaca, Rocephin resistant Carbapenem sent 01/2021: Citrobacter casiano sensitive 06/24/2020: ESBL Proteus mirabilis sensitive to ertapenem/meropenem, Levaquin, Zosyn, and amikacin -MRSA nares negative -BCx negative 24 hours -UCx growing multiple organisms, probable skin issa -Repeat culture pending -CTAP negative for pyelonephritis, though noted b/l hydronephrosis -Rocephin x1 in ED, now on meropenem and daptomycin -Adjust per sensitivities -Infectious disease consulted, awaiting recommendations Yeast infection -UA with budding hyphae. Unclear whether this is vulvovaginal or urinary source. She does have one previous microscopy with rare young -Will treat as vulvovaginal for now until UCx results + monitor for symptoms -Diflucan 150mg q72h x 2 doses, one dose remaining Hypomagnesemia, resolved -Mg 1.5 on admission, repleted -Monitor DM2 -Continue home insulin bolus regimen + SSI -BSG elevated to mid 100s, will tighten glycemic control CLL -Follows with oncology -Hold ibrutinib while treating active infection -Monitor CBC Anxiety -Continue buspirone HLD -Hold statin while on daptomycin HTN -Stable, controlled -Continue amlodipine, losartan, metoprolol Paroxysmal atrial fibrillation -Currently in NSR -Continue metoprolol -Eliquis previously discontinued due to bleeding/EL -No anticoagulation at present GERD -Continue Protonix Urinary incontinence -Continue Vibegron DVT ppx: Lovenox FEN/GI: DM2 Code Status: full Dispo: Medical/surgical with telemetry (2) Urinary tract infection symptoms: (3) CLL (chronic lymphocytic leukemia): (4) History of cervical cancer: (5) Anxiety: (6) Paroxysmal A-fib: (7) Dysuria: (8) Hypertension: (9) Diabetes: (10) Urgency incontinence: (11) GERD (gastroesophageal reflux disease): Admission and Anticipated Discharge Date Admission Date: February 03, 2023 Supervising Physician Co-Signing Physician Notes Attending attestation Pt seen and examined in concert with Dr. Roa. In agreement with the documented findings as noted in the resident documentation with any exceptions or additions as noted here. Resting comfortably in bed without acute complaint at present. On examination, S1/S2 nl RRR no MCG. CTAB. Abd NT/ND BS+ve Recurrent UTI w/ bilateral hydronephrosis and hydroureter h/o MDR - ID consult - f/u UCx, BCx and transition meropenem to ertapenem. Yeast infection - monitor for symptoms s/p tx w/ diflucan as noted Else see resident documentation as noted. Subjective Acute events overnight- none. Pt examined at bedside. Feels well, reports her dysuria and urinary frequency symptoms continue to improve. Denies any new complaints. Review of Systems Review of Systems: Per HPI Physical Exam Physical Exam: Constitutional: in no acute distress, pleasant and normal affect, intact memory. Vitals as above. HEENT: No scleral injection or discharge. Moist mucous membranes. Neck: Supple without lymphadenopathy or thyromegaly. Trachea midline. Lungs: Clear to auscultation bilaterally with good effort. No wheezes/rales/rhonchi. Cardiac: Regular rate and rhythm. No murmurs. Trace bilateral lower extremity edema. 2+ distal peripheral pulses. Abdomen: Bowel sounds present. Soft and nondistended. nontender. No guarding or rebound. No hepatosplenomegaly. Skin: No abnormal rashes, warm, dry Results & Data Results & Data Vital Signs (Past 12 Hours) Vital Signs Temp Pulse Pulse Resp BP Pulse Ox O2 Del Method 02/04/23 08:03 36.7 C 74 16 149/67 H 91 Room Air 02/04/23 07:42 77 02/04/23 04:10 36.7 C 77 18 141/92 H 93 Room Air 02/04/23 01:54 76 02/04/23 00:26 36.3 C L 83 20 170/79 H 95 Room Air Resident Activity Tracking Resident Involvement: Resident Care Provided Care Provided: Adult Hospital Medicine
[2023-02-04] MEDS: ERTAPENEM SODIUM 1,000 MG in SYRINGE 0 ML IV SCH (13:08)
[2023-02-04] MEDS ORDERED: LANTUS PER UNIT CHARGE SQ SCH (21:00)
[2023-02-04 22:11] LABS: Appearance Urine Clear (Clear); Bilirubin Urine Negative (Negative); Blood Urine Negative (Negative); Color Urine Yellow; Glucose Urine UA Negative (Negative); Ketones Urine Negative (Negative); Leukocyte Esterase Urine Negative (Negative); Nitrite Urine Negative (Negative); Protein Urine Negative (Negative); Specific Gravity Urine 1.011 (1.000-1.030); Urobilinogen Urine Negative (Negative); pH Urine 5.5 (4.5-7.5)
[2023-02-05] MEDS: ACETAMINOPHEN 325 MG TAB PO PRN (01:23)
[2023-02-05] MEDS: DAPTOmycin 675 MG in SYRINGE 0 ML IV SCH (06:15)
[2023-02-05] MEDS: ENOXAPARIN INJ 40 MG/0.4 ML SYR SQ SCH (06:15)
[2023-02-05] MEDS: VIBEGRON 75 MG TAB PO SCH (08:58)
[2023-02-05] MEDS: METOPROLOL TARTRATE 25 MG TAB PO SCH ×2 (08:58→21:20)
[2023-02-05] MEDS: amLODIPine BESYLATE 5 MG TAB PO SCH ×2 (08:58→21:20)
[2023-02-05] MEDS: LOSARTAN POTASSIUM 25 MG TAB PO SCH (08:58)
[2023-02-05] MEDS: PANTOprazole 40 MG TAB PO SCH (08:58)
[2023-02-05] MEDS: ADVANCED PROBIOTIC 1250 MG CAPSULE PO SCH (08:58)
[2023-02-05] MEDS: busPIRone 15 MG TAB PO SCH ×3 (08:58→21:20)
[2023-02-05] MEDS: INSULIN ASPART PER UNIT CHARGE SC SCH ×4 (09:03→21:19)
[2023-02-05 09:04] LABS: Mean Corpuscular Hgb Conc 34.2 g/dL (32.0-36.0); Mean Corpuscular Volume 93.6 fL (80.0-100.0); Mean Platelet Volume 10.7 fL (9.4-12.4); Platelet Count 179 K/uL (130-400); RDW Coefficient of Variation 13.4 % (11.5-14.5); Red Blood Count 4.06 M/uL (4.20-5.40); White Blood Count 6.37 K/ul (4.8-10.8)
[2023-02-05 09:29] LABS: BUN Creatinine Ratio 21.5 (10-20); Calcium 9.5 mg/dl (8.6-10.3); Creatinine Clr Calc Pharmacy 48.2 ml/min; Est GFR (African American) 56.8 ml/min
--- NOTE | 2023-02-05 10:28 | Infectious Disease Progress Nt ---
Date of Service February 05, 2023 Assessment & Plan (1) Recurrent UTI: (2) Bilateral hydronephrosis: Plan Micro: 02/03 BCx x2: NGTD 02/03 UA 10-30 WBCs. UCx >3 types of organisms present, mixed probable skin issa 01/25 UCx: >100K E coli (R cipro, levo. Otherwise S) 01/11 UCx: >100K ESBL E coli (R cipro, levo, TMP/SMX. S tr, erta, nitro, pip/tazo) 01/03 UCx: >100K VRE (R cipro, levo, tetra. I nitrofurantoin. S dapto.) 12/17 UCx: >100K Kleb pneumo (casiano-sensitive) 11/25 UCx: 10-100K ESBL E coli (R cipro, levo, TMP/SMX. S tr, erta, nitro, pip/tazo) 10/04 UCx: >100K ESBL E coli, 10-100K 2nd type of ESBL E coli, >100K Lactobacillus 09/16 UCx: >100K ESBL E coli (R cipro, levo, TMP/SMX, gent. S amox/clav, erta, tr, nitrofurantoin, pip/tazo.) 08/22 UCx: >100K ESBL E coli (R cipro, levo, gent. S tr, nitro, pip/tazo, tobra, TMP/SMX, erta), >100K 2nd type of E coli (R amp, amp/sul, cipro, gent, levo, nitro. S cefaz, cefepime, ceftriaxone, tobra, TMP/SMX) 08/15 Ucx: >100K ESBL E coli, >100K 2nd type of ESBL E coli 07/09 UCx: >100K ESBL E coli (R cipro, levo, gent. S erta, tr, nitro, TMP/SMX, pip/tazo) Abx: Daptomycin 02/03 - present Ertapenem 02/04 - present Meropenem 02/03 - 02/04 Ceftriaxone 02/03 Problems: #Recurrent UTIs #Multiple antibiotic allergies: Amoxicillin--swelling of lip/tongue/throat. Cefazolin--hives. Nitrofurantoin--tachycardia. Sulfa--tinnitus 82 yo F with history of cervical cancer s/p total hysterectomy and radiation (1990), CLL, chronic pancreatitis, DM, Afib, urinary incontinence, bilateral hydronephrosis and R vesicoureteral reflux, recurrent UTIs who presented on 02/03 with urethral pain. Denies fevers or flank pain. She has multiple recent presentations for UTIs, summarized in HPI of initial consult note 02/03/23. Multiple recent ertapenem courses: around mid-Jun x 10 days, 10/10-10/24, 11/25- 12/08, 01/11-01/13. Pt has been presenting with recurrent UTI symptoms shortly after finishing prior course of antibiotics. She just recently finished a course of cefdinir for non-ESBL E coli. On presentation, pt was afebrile, without leukocytosis or CHRIST, normal lactate and procalcitonin. UA 10-30 WBCs. UCx grew mixed issa. CT A/P without contrast showed: bilateral hydronephrosis and hydroureter again seen with a small hyperplastic bladder, mild thickening of ur eteral romano also unchanged, may be secondary to chronic hydroureteronephrosis however clinical correlation to exclude cystitis is recommended. Patient has difficulty describing her urinary symptoms, stating that they are on and off. She feels that her symptoms improve with each dose of antibiotic, then return a little before she is due for her next dose, which is unusual. She thinks she has only had maximum ~1 week without urinary symptoms in recent months. Pt continues to have recurrent UTIs despite multiple antibiotic courses, often presenting with symptoms shortly after completing a course of antibiotics. This raises concern for underlying urologic abnormalities/poor emptying predisposing her to UTIs. CT does show chronic bilateral hydronephrosis, hydroureter, small hyperplastic bladder, ureteral wall thickening. Urology evaluation on 01/12/23 felt that stent for hydronephrosis will increase likelihood of upper tract infection. Also consider that some of these positive urine cultures may represent colonization, with chronic non-infectious urinary symptoms--it is unusual that her symptoms would be on/off and improve with each dose of antibiotic, then return a little before she is due for her next dose. Recommendations: -Consider urology consult to assess if anything can be done to address the underlying urologic abnormalities that are likely contributing to UTI recurrence. -UCx here shows mixed issa, and a repeat UA is negative (did not reflex to culture), so think it will be difficult to determine what bacteria is causing her UTI. Repeat urine culture may have low yield as she has received a couple days of antibiotics already. Therefore, will treat empirically to cover ESBL E coli and VRE which have grown in prior cultures. -On discharge, can transition from daptomycin to linezolid 600 mg PO BID. Continue ertapenem 1 g IV daily via midline. Continue antibiotics through 02/12 to complete a 10 day course. Will continue to follow. Please page [facility] with further questions. Admission and Anticipated Discharge Date Admission Date: February 03, 2023 Subjective This patient recommendation is based on a telemedicine consult request which was completed asynchronously through chart review and information provided by the primary physician. The patient was not seen or examined today. The evaluation is consultative in nature and all patient care and treatment decisions can either be accepted or rejected by the patient's primary hospital-based treating physician using their own independent medical judgment for their patient. Time Spent Reviewing Chart: 11 - 20 minutes Repeat UA yesterday was negative for nitrites, leuk esterase. Remains afebrile without leukocytosis Review of System Pt was not seen Physical Exam Physical Exam: Pt was not seen Results & Data Vital Signs (Past 12 Hours) Vital Signs Temp Pulse Pulse Pulse Resp BP Pulse Ox 02/05/23 08:00 71 02/05/23 08:34 37.2 C 74 18 138/82 95 02/05/23 04:08 36.7 C 73 18 148/83 H 93 02/05/23 00:02 36.9 C 78 20 146/74 H 93 02/04/23 23:46 73 O2 Del Method 02/05/23 08:00 02/05/23 08:34 Room Air 02/05/23 04:08 Room Air 02/05/23 00:02 Room Air 02/04/23 23:46 Laboratory Results Short CBC 02/05/23 Range/Units 08:26 WBC 6.37 (4.8-10.8) K/ul Hgb 13.0 (12.0-16.0) g/dl Hct 38.0 (37.0-47.0) % Plt Count 179 (130-400) K/uL BMP 02/05/23 08:26 Sodium 139 Potassium 4.0 Chloride 104 Carbon Dioxide 29 BUN 23 Creatinine 1.07 Glucose 162 H Calcium 9.5 Urine 02/04/23 Range/Units 21:50 Urine Color Yellow Urine Appearance Clear (Clear) Urine pH 5.5 (4.5-7.5) Ur Specific [place] 1.011 (1.000-1.030) Urine Protein Negative (Negative) Urine Glucose (UA) Negative (Negative) Medications Administered Current Inpatient Medications Acetaminophen (Acetaminophen 325 Mg Tab) 650 mg PO Q4H PRN PRN Reason: Pain or Fever Stop: 03/05/23 06:02 Last Admin: 02/05/23 01:23 Dose: 650 mg Amlodipine Besylate (Amlodipine Besylate 5 Mg Tab) 5 mg PO BID [facility] Stop: 03/05/23 08:59 Last Admin: 02/05/23 08:58 Dose: 5 mg Buspirone HCl (Buspirone 15 Mg Tab) 15 mg PO TID [facility] Stop: 03/05/23 08:59 Last Admin: 02/05/23 08:58 Dose: 15 mg Dextrose (Dextrose 50% 50 Ml Syringe) 25 - 50 ml IV UD PRN; Protocol PRN Reason: Hypoglycemia Protocol Stop: 03/05/23 06:02 Enoxaparin Sodium (Enoxaparin Inj 40 Mg/0.4 Ml Syr) 40 mg SQ Q24H [facility] Stop: 03/05/23 06:59 Last Admin: 02/05/23 06:15 Dose: 40 mg Fluconazole (Fluconazole 50 Mg Tab) 150 mg PO Q72H [facility] Stop: 02/06/23 07:31 Last Admin: 02/03/23 08:54 Dose: 150 mg Glucagon (Glucagon For Inj 1 Mg Vial) 1 mg SQ UD PRN; Protocol PRN Reason: Hypoglycemia Protocol Stop: 03/05/23 06:02 Glucose (Glucose 10 Tab/Tube) 4 - 8 tab PO UD PRN; Protocol PRN Reason: Hypoglycemia Treatment Stop: 03/05/23 06:02 Glucose (Glucose 40% Gel 15 Gm Tube) 15 - 30 gm PO UD PRN; Protocol PRN Reason: Hypoglycemia Protocol Stop: 03/05/23 06:02 Daptomycin 675 mg/ Syringe 13.5 mls @ 6.75 mls/min IV Q24H NEIL; Protocol Stop: 02/15/23 06:59 Last Admin: 02/05/23 06:15 Dose: 6.75 mls/min Ertapenem 1,000 mg/ Syringe 10 mls @ 2 mls/min IV Q24H NEIL Stop: 02/09/23 12:59 Last Admin: 02/04/23 13:08 Dose: 2 mls/min Insulin Aspart (Insulin Aspart Per Unit Charge) 0 units SC ACHS NEIL Stop: 03/05/23 07:29 Last Admin: 02/05/23 09:03 Dose: 5 units Insulin Glargine (Lantus Per Unit Charge) 30 units SQ HS NEIL Stop: 03/06/23 20:59 Last Admin: 02/04/23 21:29 Dose: 30 units Lactobacillus Acidophilus (Advanced Probiotic 1250 Mg Capsule) 2 cap PO DAILY NEIL Stop: 03/05/23 08:59 Last Admin: 02/05/23 08:58 Dose: 2 cap Losartan Potassium (Losartan Potassium 25 Mg Tab) 25 mg PO DAILY NEIL Stop: 03/05/23 08:59 Last Admin: 02/05/23 08:58 Dose: 25 mg Metoprolol Tartrate (Metoprolol Tartrate 25 Mg Tab) 12.5 mg PO BID NEIL Stop: 03/05/23 08:59 Last Admin: 02/05/23 08:58 Dose: 12.5 mg Miscellaneous (Carbohydrates For Hypoglycemia ) 15 - 30 gm PO UD PRN PRN Reason: Hypoglycemia Protocol Stop: 03/05/23 06:02 Ondansetron HCl (Ondansetron 4 Mg Od Tab) 4 mg PO Q6H PRN PRN Reason: Nausea Stop: 03/05/23 06:02 Pantoprazole Sodium (Pantoprazole 40 Mg Tab) 40 mg PO DAILY NEIL Stop: 03/05/23 08:59 Last Admin: 02/05/23 08:58 Dose: 40 mg Polyethylene Glycol (Polyethylene (Miralax) 17 Gm Pack) 17 gm PO DAILY PRN PRN Reason: Constipation Stop: 03/05/23 06:02 Vibegron (Vibegron 75 Mg Tab) 75 mg PO DAILY NEIL Stop: 03/05/23 08:59 Last Admin: 02/05/23 08:58 Dose: 75 mg
--- NOTE | 2023-02-05 10:57 | Hospitalist Progress Note ---
Date of Service February 05, 2023 Assessment & Plan (1) Recurrent UTI: Plan: 82 yo female with PMHx of recurrent complicated ESBL UTI, CLL, h/o cervical cancer, chronic pancreatitis, HTN, HLD, anxiety, DM2, urinary incontinence, GERD, paroxysmal A Fib, and bilateral hydronephrosis presents with UTI symptoms. Complicated multi-drug resistant UTI, recurrent -Pt readmitted with UTI and has known history of recurrent UTI, outlined below Past UTI cultures: --01/25/2023: E. Coli resistant to ciprofloxacin and levofloxacin 01/03/2023: VRE sensitive to Dapto, resistant to vancomycin, tetracycline, ciprofloxacin, levofloxacin, ampicillin 12/17/2022: Pansensitive Klebsiella 09/16/2022: ESBL E. coli sensitive to ertapenem, meropenem, Zosyn. A amox/clav sensitive but amp/sulbactam resistant 07/09/2022: ESBL E. coli, Bactrim sensitive, Zosyn sensitive, meropenem/ertapenem sensitive. Otherwise intermediate or resistant. Sensitivities 01/23/2022: E. coli, ampicillin and Unasyn resistant 06/18/2021 and 07/19/2021: Enterobacter cloaca, Rocephin resistant Carbapenem sent 01/2021: Citrobacter casiano sensitive 06/24/2020: ESBL Proteus mirabilis sensitive to ertapenem/meropenem, Levaquin, Zosyn, and amikacin -MRSA nares negative -BCx negative 24 hours -UCx growing multiple organisms, probable skin issa -Repeat UA negative, no reflex to culture -CTAP negative for pyelonephritis, though noted b/l hydronephrosis -Rocephin x1 in ED, now on ertapenem and daptomycin -Adjust per sensitivities -Meropenem switched to ertapenem by ID on 02/04 -Infectious disease following -Consider urology consult to further evaluate recurrent UTI. We will defer this to outpatient workup -Treat empirically to cover ESBL E coli and VRE grown in prior cultures -Recommend linezolid 600 mg PO BID + ertapenem 1g IV daily via midline until 02/12 Yeast infection -UA with budding hyphae. Unclear whether this is vulvovaginal or urinary source. She does have one previous microscopy with rare young -Will treat as vulvovaginal for now until UCx results + monitor for symptoms -Diflucan 150mg q72h x 2 doses, one dose remaining Hypomagnesemia, resolved -Mg 1.5 on admission, repleted -Monitor DM2 -Continue home insulin bolus regimen + SSI -BSG elevated to mid 100s, will tighten glycemic control further today- Lantus 30 to 32 units CLL -Follows with oncology -Hold ibrutinib while treating active infection -Monitor CBC Anxiety -Continue buspirone HLD -Hold statin while on daptomycin HTN -Stable, controlled -Continue amlodipine, losartan, metoprolol Paroxysmal atrial fibrillation -Currently in NSR -Continue metoprolol -Eliquis previously discontinued due to bleeding/EL -No anticoagulation at present GERD -Continue Protonix Urinary incontinence -Continue Vibegron DVT ppx: Lovenox FEN/GI: DM2 Code Status: full Dispo: Medical/surgical with telemetry (2) Urinary tract infection symptoms: (3) CLL (chronic lymphocytic leukemia): (4) History of cervical cancer: (5) Anxiety: (6) Paroxysmal A-fib: (7) Dysuria: (8) Hypertension: (9) Diabetes: (10) Urgency incontinence: (11) GERD (gastroesophageal reflux disease): Admission and Anticipated Discharge Date Admission Date: February 03, 2023 Supervising Physician Co-Signing Physician Notes Attending attestation Pt seen and examined in concert with Dr. Roa. In agreement with the documented findings as noted in the resident documentation with any exceptions or additions as noted here. Resting comfortably in bed without acute complaint at present. On examination, S1/S2 nl RRR no MCG. CTAB. Abd NT/ND BS+ve Recurrent UTI w/ bilateral hydronephrosis and hydroureter h/o MDR - ID consult - to complete course as noted with ertapenem and PO linezolid Yeast infection - monitor for symptoms s/p tx w/ diflucan as noted Else see resident documentation as noted. Subjective Acute events overnight- none. Pt examined at bedside. Feels well, reports her dysuria and urinary frequency sy mptoms are nearly entirely resolved today. Denies any new complaints. Review of Systems Review of Systems: Per HPI Physical Exam Physical Exam: Constitutional: in no acute distress, pleasant and normal affect, intact memory. Vitals as above. HEENT: No scleral injection or discharge. Moist mucous membranes. Neck: Supple without lymphadenopathy or thyromegaly. Trachea midline. Lungs: Clear to auscultation bilaterally with good effort. No wheezes/rales/rhonchi. Cardiac: Regular rate and rhythm. No murmurs. Trace bilateral lower extremity edema. 2+ distal peripheral pulses. Abdomen: Bowel sounds present. Soft and nondistended. nontender. No guarding or rebound. No hepatosplenomegaly. Skin: No abnormal rashes, warm, dry Results & Data Results & Data Vital Signs (Past 12 Hours) Vital Signs Temp Pulse Pulse Pulse Resp BP Pulse Ox 02/05/23 08:00 71 02/05/23 08:34 37.2 C 74 18 138/82 95 02/05/23 04:08 36.7 C 73 18 148/83 H 93 02/05/23 00:02 36.9 C 78 20 146/74 H 93 02/04/23 23:46 73 O2 Del Method 02/05/23 08:00 02/05/23 08:34 Room Air 02/05/23 04:08 Room Air 02/05/23 00:02 Room Air 02/04/23 23:46 Resident Activity Tracking Resident Involvement: Resident Care Provided Care Provided: Adult Hospital Medicine
[2023-02-05] MEDS: ERTAPENEM SODIUM 1,000 MG in SYRINGE 0 ML IV SCH (12:57)
[2023-02-05] MEDS ORDERED: LANTUS PER UNIT CHARGE SQ SCH (21:00)
[2023-02-06] MEDS: ACETAMINOPHEN 325 MG TAB PO PRN (01:34)
[2023-02-06] MEDS ORDERED: Nursing to Pharmacy Communication SCH (06:30)
[2023-02-06 08:11] LABS: Hematocrit (blood only) 36.5 % (37.0-47.0); Hemoglobin 12.8 g/dl (12.0-16.0); Mean Corpuscular Hgb Conc 35.1 g/dL (32.0-36.0); Mean Corpuscular Volume 91.3 fL (80.0-100.0); Mean Platelet Volume 10.7 fL (9.4-12.4); Platelet Count 179 K/uL (130-400); RDW Coefficient of Variation 13.2 % (11.5-14.5); RDW Standard Deviation 43.5 fL (36.4-46.3); White Blood Count 6.02 K/ul (4.8-10.8)
[2023-02-06 08:24] LABS: BUN Creatinine Ratio 21.9 (10-20); Calcium 9.3 mg/dl (8.6-10.3); Creatinine Clr Calc Pharmacy 53.7 ml/min; Est GFR (African American) 64.7 ml/min; Est GFR (Non-African American) 55.9 ml/min; Potassium 3.9 mmol/L (3.5-5.1)
[2023-02-06] MEDS: ENOXAPARIN INJ 40 MG/0.4 ML SYR SQ SCH (09:03)
[2023-02-06] MEDS: METOPROLOL TARTRATE 25 MG TAB PO SCH (09:06)
[2023-02-06] MEDS: INSULIN ASPART PER UNIT CHARGE SC SCH ×2 (09:06→12:51)
[2023-02-06] MEDS: LOSARTAN POTASSIUM 25 MG TAB PO SCH (09:07)
[2023-02-06] MEDS: VIBEGRON 75 MG TAB PO SCH (09:07)
[2023-02-06] MEDS: PANTOprazole 40 MG TAB PO SCH (09:07)
[2023-02-06] MEDS: busPIRone 15 MG TAB PO SCH (09:07)
[2023-02-06] MEDS: ADVANCED PROBIOTIC 1250 MG CAPSULE PO SCH (09:07)
[2023-02-06] MEDS: FLUCONAZOLE 50 MG TAB PO SCH (09:08)
[2023-02-06] MEDS: amLODIPine BESYLATE 5 MG TAB PO SCH (09:08)
--- NOTE | 2023-02-06 09:09 | Discharge Summary ---
Date of Service February 06, 2023 Admission HPI Per Admitting Provider 82 yo female with PMHx of recurrent complicated ESBL UTI, CLL, h/o cervical cancer, chronic pancreatitis, HTN, HLD, anxiety, DM2, urinary incontinence, GERD, paroxysmal A Fib, and bilateral hydronephrosis presents with UTI symptoms. Pt was discharged from [facility] 2 days ago for similar symptoms. 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 During her previous stay, she was on ertapenem and discharged on cefdinir. She states upon discharge, she would still get intermittent dysuria. However, yesterday the dysuria was unbearable. She has urinary incontinence so she had constant burning. She also endorses some vulvovaginal itching. Denies headache, chest pain, sob, abd pain, N/V/D, constipation, inc. urinary frequency. She does have some bilateral flank pain as well. No h/o kidney stones. Admission Exam Per Admitting Provider Constitutional: in no acute distress, pleasant and normal affect, intact memory. AOx3. Vitals as above. HEENT: No scleral injection or discharge. Moist mucous membranes. Neck: Supple without lymphadenopathy or thyromegaly. Trachea midline. Lungs: Clear to auscultation bilaterally with good effort. No wheezes/rales/rhonchi. Cardiac: Regular rate and rhythm. No murmurs. Trace bilateral lower extremity edema. 2+ distal peripheral pulses. Abdomen: Bowel sounds present. Soft and nondistended. +suprapubic/RLQ tenderness. Ni guarding or rebound. No hepatosplenomegaly. MSK: No cyanosis or clubbing. Extremities motor strength 5/5. Skin: No abnormal rashes, warm, dry. Neurologic: no focal deficits Principal Diagnosis Recurrent MDR VRE/ESBL UTI Discharge Exam Constitutional: in no acute distress, pleasant and normal affect, intact memory. Vitals as above. HEENT: No scleral injection or discharge. Moist mucous membranes. Neck: Supple without lymphadenopathy or thyromegaly. Trachea midline. Lungs: Clear to auscultation bilaterally with good effort. No wheezes/rales/rhonchi. Cardiac: Regular rate and rhythm. No murmurs. Trace bilateral lower extremity edema. 2+ distal peripheral pulses. Abdomen: Bowel sounds present. Soft and nondistended. nontender. No guarding or rebound. No hepatosplenomegaly. Skin: No abnormal rashes, warm, dry Discharge Data Allergies Allergy/AdvReac Type Severity Reaction Status Date / Time amoxicillin Allergy Severe Swelling Verified 01/16/23 15:38 of Lip/Tongue/Throat cefazolin Allergy Severe Hives Unverified 01/16/23 15:38 egg Allergy Severe Gastrointestinal Unverified 01/16/23 15:38 Upset nut - unspecified Allergy Severe Swelling Verified 01/16/23 15:38 of Lip/Tongue/Throat pineapple Allergy Severe Swelling Verified 01/16/23 15:38 of Lip/Tongue/Throat nitrofurantoin Allergy Mild tachycardia Verified 01/16/23 15:38 aspirin Allergy Unknown INCREASES Verified 01/16/23 15:38 BLEEDING acetaminophen [From Tylenol] AdvReac Severe liver bleed Verified 01/16/23 15:38 duloxetine AdvReac Severe SEVERE Verified 01/16/23 15:38 VOMITING caffeine AdvReac Intermediate racing Verified 01/16/23 15:38 heart lisinopril AdvReac Intermediate cough, Verified 01/16/23 15:38 white "stuff" all over lungs Sulfa (Sulfonamide AdvReac Intermediate Tinnitis Verified 01/16/23 15:38 Antibiotics) Consultations 02/03/23 03:45 ED Decision to Admit Stat 02/04/23 07:24 Consult Infectious Diseases Routine 02/04/23 10:07 Consult Infectious Diseases Routine Ordered Studies 02/03/23 05:05 CT Abd and Pelvis [CT abd pelvis wo con] Routine Hospital Course (1) Recurrent UTI: 82 yo female with PMHx of recurrent complicated ESBL UTI, CLL, h/o cervical cancer, chronic pancreatitis, HTN, HLD, anxiety, DM2, urinary incontinence, GERD, paroxysmal A Fib, and bilateral hydronephrosis presents with UTI symptoms. Complicated multi-drug resistant UTI, recurrent -Pt readmitted with UTI and has known history of recurrent UTI, outlined below Past UTI cultures: --01/25/2023: E. Coli resistant to ciprofloxacin and levofloxacin 01/03/2023: VRE sensitive to Dapto, resistant to vancomycin, tetracycline, cipr ofloxacin, levofloxacin, ampicillin 12/17/2022: Pansensitive Klebsiella 09/16/2022: ESBL E. coli sensitive to ertapenem, meropenem, Zosyn. A amox/clav sensitive but amp/sulbactam resistant 07/09/2022: ESBL E. coli, Bactrim sensitive, Zosyn sensitive, meropenem/ertapenem sensitive. Otherwise intermediate or resistant. Sensitivities 01/23/2022: E. coli, ampicillin and Unasyn resistant 06/18/2021 and 07/19/2021: Enterobacter cloaca, Rocephin resistant Carbapenem sent 01/2021: Citrobacter casiano sensitive 06/24/2020: ESBL Proteus mirabilis sensitive to ertapenem/meropenem, Levaquin, Zosyn, and amikacin -MRSA nares negative -BCx negative at 48 hours -UCx growing multiple organisms, probable skin issa -Repeat UA negative, no reflex to culture -CTAP negative for pyelonephritis, though noted b/l hydronephrosis -Rocephin x1 in ED, now on ertapenem and daptomycin -Meropenem switched to ertapenem by ID on 02/04 -Infectious disease consulted -Pt established with [facility], follow-up after d/c -Treat empirically to cover ESBL E coli and VRE grown in prior cultures -Will discharge pt on linezolid 600 mg PO BID + ertapenem 1g IV daily until 02/12 -Midline for ertapenem placed on day of discharge w/o complication Yeast infection -UA with budding hyphae. Unclear whether this is vulvovaginal or urinary source. She does have one previous microscopy with rare young -Diflucan 150mg q72h x 2 doses completed on day of discharge Hypomagnesemia, resolved -Mg 1.5 on admission, repleted -Monitor DM2 -No significant episodes of hyper/hypoglycemia during hospitalization -Lantus, SSI while inpatient CLL -Follows with oncology -Held ibrutinib while treating active infection Anxiety -Continued buspirone HLD -Held statin while on daptomycin -Can resume statin on discharge HTN -Stable, controlled -Continued amlodipine, losartan, metoprolol Paroxysmal atrial fibrillation -No AF noted during hospitalization -Continue metoprolol -Eliquis previously discontinued due to bleeding/EL -No anticoagulation at present, defer choice of resuming AC to PCP GERD -Continued Protonix Urinary incontinence -Continued Vibegron (2) Urinary tract infection symptoms: (3) CLL (chronic lymphocytic leukemia): (4) History of cervical cancer: (5) Anxiety: (6) Paroxysmal A-fib: (7) Dysuria: (8) Hypertension: (9) Diabetes: (10) Urgency incontinence: (11) GERD (gastroesophageal reflux disease): Total Time Total Time Spent Total Time Spent (In Minutes): 30 Discharge Plan Discharge Items Patient Disposition: Home - Home Health Services Reason For Visit: UTI SYMPTOMS Discharge Diagnosis: Recurrent MDR UTI Activity: Resume your previous activity Non-emergency contact: Primary Care Provider and Urologist Call non-emergency contact if: your symptoms worsen Follow-up/Referrals: Roc Haji MD [Physician] - Keith Hutchinson DO [Primary Care Provider] - 02/18/23 1:30 pm Diet: Carb Consistent or DM2 Addtl Attending Provider Instructions: You were admitted to the hospital for a urinary tract infection. You were treated with antibiotics which were recommended by the infectious disease specialist. Please make sure you're well hydrated as you continue the antibiotics. A discharge summary will be sent to your primary care physician to ensure continuity of care. Please bring this discharge summary with you to your next office appointment so that your provider can review it at that time. Follow-up appointments: - Make a follow-up appointment with your PCP within the next week. It is very important that you follow up with them shortly after discharge from the hospital. -We have requested a urology follow up as well for further evaluation of your recurrent urinary infections. Medications: Your medication list has been reviewed and reconciled upon discharge to ensure accuracy and continuity of care. An updated list of all your medications is included with your hospital discharge paperwork. Please review this list closely, and make note of any changes. -We sent a new medication called linezolid to the pharmacy. You will take linezolid twice daily (morning and night) until 02/12. -You will receive ertapenem by IV daily every day until 02/12. Take your medications as instructed; do not skip a dose of your medicines. Make sure all of your doctors know every medicine you are taking (including mcqi-gmi-ynzfdit medicines, vitamins, and supplements). Call your primary care provider before taking any new medicines (including wbhn-mhy-vnhxcnh medicines, vitamins, and supplements), because some of these may interact with your current medications, or may make your symptoms worse. Tell your primary care provider if you cannot afford your medications. CONTACT YOUR PRIMARY CARE PROVIDER if you experience any of the following: -Pain, redness, warmth or swelling around the IV site -Urinary burning or urgency -Abdominal pain, nausea - Difficulty following your treatment plan, or difficulty taking medications CALL 911 OR GO TO THE EMERGENCY DEPARTMENT if you experience any of the following: - Sudden, severe abdominal pain or nausea/vomiting - Severe chest pain, or chest pain that radiates (moves) to your jaw or arm - Sudden, severe shortness of breath or difficulty breathing Thank you for allowing us to participate in your care Pending Studies at Discharge: No Stand-Alone Forms: My [facility] Medications and DC Order Prescriptions: New linezolid 600 mg tablet 600 mg PO BID 6 Days Qty: 12 0RF Rx Instructions: Start taking linezolid twice daily by mouth starting on Tuesday 02/06 ertapenem 1 gram recon soln 1 g IV DAILY 6 Days Qty: 1 0RF Rx Instructions: IV ertapenem daily until 02/12 Continued (DME) lancets [Prodigy Lancets] 28 gauge misc See Rx Instructions .Route Qty: 300 3RF Rx Instructions: As directed: check tid ondansetron HCl 4 mg tablet 4 mg PO Q8H PRN (Reason: Nausea) Qty: 90 1RF Patient Comments: "Several weeks" since last use. cholecalciferol (vitamin D3) [Vitamin D3] 25 mcg (1,000 unit) tablet 1,000 unit PO QDL Qty: 30 3RF ferrous sulfate [FeroSul] 325 mg (65 mg iron) tablet 325 mg PO BID Qty: 180 1RF Rx Instructions: Take with Vitamin C twice daily ascorbic acid (vitamin C) [Vitamin C] 500 mg tablet 500 mg PO BID Rx Instructions: Take with Ferrous Sulfate (Iron) twice daily (DME) Prodigy No Coding Strip See Rx Instructions .Route Qty: 100 5RF Patient Comments: Pt uses glucometer when wearable flash glucose sensor not on. Rx Instructions: Patient tests 3 times daily and as needed when symtomatic insulin glargine [Basaglar KwikPen U-100 Insulin] 100 unit/mL (3 mL) insulin pen 26 unit SUBCUT HS Qty: 15 3RF (DME) pen needle, diabetic [BD Ultra-Fine Mini Pen Needle] 31 gauge x 3/16" needle See Rx Instructions .Route Qty: 100 3RF Rx Instructions: As directed potassium chloride 10 mEq capsule, extended release 10 meq PO BID Qty: 180 3RF atorvastatin 10 mg tablet 10 mg PO HS Qty: 90 1RF insulin aspart U-100 [Novolog U-100 Insulin aspart] 100 unit/mL solution 7 unit subcut TID Qty: 30 3RF estradiol 0.01 % (0.1 mg/gram) cream 0.5 appful vaginal .COMPLEX Qty: 42.5 1RF Rx Instructions: 0.5 appful vaginally twice weekly; for 14 days (DME) FreeStyle Vicente 2 Sensor Kit See Rx Instructions .Route Qty: 1 3RF Patient Comments: Pt removed wearable glucose monitor 01/24/2023. Rx Instructions: As directed E11.9 (DME) FreeStyle Vicente 2 Sensor Kit See Rx Instructions .Route Qty: 1 2RF Rx Instructions: change q 14 days buspirone 15 mg tablet 15 mg PO TID Qty: 270 0RF methenamine hippurate 1 gram tablet 1 g PO Q12H 90 Days Qty: 180 3RF omeprazole 20 mg capsule,delayed release(DR/EC) 40 mg PO DAILY Rx Instructions: Pt states she take 20 mg a day AZO D-Mannose 500 mg capsule 500 mg PO DAILY Rx Instructions: Pt started this per Dr. Hudson- for good Urinary health. (DME) BD Insulin Syringe (half unit) 0.3 mL 31 gauge x 5/16" syringe See Rx Instructions .Route Qty: 300 3RF Rx Instructions: use to give insulin three times daily Gemtesa 75 mg tablet 75 mg PO DAILY cranberry fruit concentrate 125 mg tablet,disintegrating 250 mg PO DAILY nystatin-triamcinolone 100,000-0.1 unit/gram-% ointment 1 applic topical BID Qty: 30 1RF Patient Comments: Last used in gluteal fold. losartan 25 mg tablet 25 mg PO DAILY cholestyramine (with sugar) [Questran] 4 gram powder in packet 4 g PO BID PRN (Reason: Loose stools or diarrhea.) Rx Instructions: administer w/meal; avoid other meds within 1hr before or 4-6hr after dose amlodipine 5 mg tablet 5 mg PO BID Glucosamine Chondroitin 550-30-1 mg Capsule 1 cap PO QDL magnesium oxide 400 mg (241.3 mg magnesium) tablet 400 mg PO BID omega 2-jpv-grj-fish oil [Fish Oil] 1,200 (144-216) mg Capsule 1 cap PO QDL calcium carbonate [Calcium 600] 600 mg calcium (1,500 mg) tablet 600 mg PO DAILY cyanocobalamin (vitamin B-12) [Vitamin B-12] 1,000 mcg Tablet 1,000 mcg PO DAILY carboxymethylcellulose sodium 1 % Drops, Liquid Gel 2 drp OPHTHALMIC (EYE) BID PRN (Reason: Dry Eye(S)) Probiotic 3 billion cell Capsule 3,000 mmu cells PO DAILY Rx Instructions: administer with a meal multivitamin Tablet 1 tab PO QDL Imbruvica 280 mg tablet 280 mg PO QAM Hold Instructions: Resume on 01/04/23. garlic 100 mg Tablet 100 mg PO DAILY metoprolol tartrate 25 mg Tablet 12.5 mg PO BID Qty: 30 0RF Discharge Orders: Discharge Order (Routine); Ordered 02/06/23 Ordered By: Phyllis Maguire/Other Patient Handouts: Managing Type 2 Diabetes, Special Foot Care for Diabetes Admission Data Admit Date/Time: 02/03/23 04:51 Attending Provider: Heraclio Yadav Admit Provider: Walker Cunningham Primary Care Provider: Keith Hutchinson Other Providers: Maverick Alfaro ; [facility] ; Tommie Walker ; Phyllis Vega ; Sydnie Salinas ; Addie Schultz ; Renay Iglesias ; Milton Alvarado ; Carmen Solano ; Sari Cox ; Jolly Chavez Other Interventions: Discharge Summary Assessment (RN) Last Done: 02/06/23 11:26 Supervising Physician Co-Signing Physician Notes Attending attestation Pt seen and examined in concert with Dr. Roa. In agreement with the documented findings as noted in the resident documentation with any exceptions or additions as noted here. Resting in bed without acute complaint at present. On examination, S1/S2 nl RRR no MCG. CTAB. Abd NT/ND BS+ve Recurrent UTI w/ bilateral hydronephrosis and hydroureter h/o MDR - ID consult - to complete course as noted with ertapenem and PO linezolid until 02/12. Encourage follow up with urology for underlying contributions, already established. Yeast infection - monitor for symptoms s/p tx w/ diflucan as noted Else see resident documentation as noted. Total attending physician time spent with this patient's care on the day of discharge: 35 minutes. Resident Activity Tracking Resident Involvement: Resident Care Provided Care Provided: Adult [facility]
[2023-02-06] MEDS: DAPTOmycin 675 MG in SYRINGE 0 ML IV SCH (09:10)
[2023-02-06] MEDS: ERTAPENEM SODIUM 1,000 MG in SYRINGE 0 ML IV SCH (12:51)
--- NOTE | 2023-02-11 00:26 | Billing Data ---
Date of Service February 11, 2023 Coding Level of Care Code 65368 INT INP/OBS CARE
== END 2023-02-06 13:33 | disposition home health service (06) | DRG 690 ==
LOC: ED 01:16 → 2W 04:51 → SUATTDRO 04:51 → 2W 05:21
DX: N13.39 Other hydronephrosis; N39.0 Urinary tract infection, site not specified; B37.31 Acute candidiasis of vulva and vagina; K21.9 Gastro-esophageal reflux disease without esophagitis; Z16.12 Extended spectrum beta lactamase (ESBL) resistance; Z79.899 Other long term (current) drug therapy; Z88.2 Allergy status to sulfonamides; R32 Unspecified urinary incontinence; I10 Essential (primary) hypertension; Z85.41 Personal history of malignant neoplasm of cervix uteri; N13.4 Hydroureter; Z91.018 Allergy to other foods; Z88.0 Allergy status to penicillin; Z88.8 Allergy status to other drugs, medicaments and biological substances; Z88.6 Allergy status to analgesic agent; I48.0 Paroxysmal atrial fibrillation; C91.10 Chronic lymphocytic leukemia of B-cell type not having achieved remission; Z79.4 Long term (current) use of insulin; E78.5 Hyperlipidemia, unspecified; F41.9 Anxiety disorder, unspecified; E83.42 Hypomagnesemia; Z92.3 Personal history of irradiation; Z90.710 Acquired absence of both cervix and uterus; E11.9 Type 2 diabetes mellitus without complications; Z91.012 Allergy to eggs

== ENCOUNTER 2023-02-28 05:09 | Observation (INO) ==
--- NOTE | 2023-02-28 05:45 | Emergency Department Note ---
Impression & Plan Complicated UTI (urinary tract infection) Admit to [facility] ED Provider Note NAME: ILIANA CALDWELL AGE: 82 SEX: F ARRIVES VIA: Walk-In INFORMANT: Patient ED PROVIDER(S): Tasha Julio DO CHIEF COMPLAINT: Dysuria PLAN: Disposition: Admit to the [facility] Hospitalist Condition: Stable MEDICAL DECISION MAKING: This is an 82-year-old female patient with a longstanding history of recurrent urinary tract infections who presents to the emergency department with recurrent dysuria, vomiting and diarrhea. Patient was discharged in the hospital a month ago on outpatient IV antibiotics and transition to linezolid. She was off oral antibiotics for couple weeks and had outpatient follow-up urinalysis just last week which showed signs of UTI but had not yet been restarted on antibiotics by infectious disease. Unfortunately, the patient began to develop symptoms again just a couple of days ago with dysuria, nausea, vomiting and diarrhea. Laboratory testing today reveals obvious signs of urinary tract infection on urinalysis. BUN was elevated at 25 and blood glucose was 205. Creatinine was normal there was no significant leukocytosis. The patient was afebrile. However given the patient's history of resistant urinary bacteria, the patient was started on IV ertapenem and IV normal saline solution. I discussed the case with the [facility] Hospitalist group and they will evaluate for further inpatient care. Triage Nursing notes reviewed and agree with them. External medical records reviewed including previous admissions to the hospital Vital Signs: reviewed and unremarkable Differential diagnosis: UTI, sepsis, viral illness, dehydration ER treatment provided: manager monitoring IV normal saline bolus IV Zofran IV ertapenem Diagnostics interpreted by me: Cardiac Monitoring: Normal sinus rhythm at a rate of 74 Laboratory studies: See below HPI: 82/F arrives for evaluation of dysuria. Patient developed nausea, vomiting and diarrhea 4 days ago. 2 days ago, she developed significant dysuria. Yesterday, she went to [facility] where she was diagnosed with a urinary tract infection and started on Cipro. Her symptoms have persisted, most notably the dysuria. The patient presents here believing she requires IV antibiotics to treat this UTI. PAST MEDICAL HISTORY:See Below PAST SURGICAL HISTORY:See Below FAMILY HISTORY:See Below SOCIAL HISTORY:See Below HOME MEDICATIONS:See list ALLERGIES:See list VITALS:See Below PHYSICAL EXAMINATION: HEENT: Head - normocephalic and atraumatic. Pupils are equal, round, and reactive to light. Extraocular eye muscles are intact, and sclera are anicteric. Nose - moist nasal mucosa without discharge. Mouth - moist buccal mucosa. Oropharynx is nonerythematous and there is no tonsillar exudate or edema noted. Neck: Supple; no cervical lymphadenopathy appreciated Heart: Regular rate and rhythm. There is a normal S1 and S2 with no murmurs, clicks, or gallops appreciated. Lungs: Clear to auscultation bilaterally with no wheezes, rales, or rhonchi. Abdomen: Soft, completely nontender, nondistended, with good bowel sounds. There are no palpable pulsatile masses or hepatosplenomegaly. There is no guarding, rigidity, or rebound noted. Extremities: No evidence of cyanosis, clubbing, or edema. There are easily palpable peripheral pulses. Skin: warm and dry with good turgor and no rashes. ED COURSE: Times/Reassessments: 525: Patient was evaluated in room C11. A complete history and physical was performed. An IV lock was initiated and labs were drawn as above. Urine specimen was collected. A septic protocol was performed. The patient was bolused with IV normal saline solution. Previous electronic medical records were reviewed. Patient was started on IV ertapenem. Patient also c omplained of nausea and was given a dose of IV Zofran. Urine specimen was collected. I discussed the case with the [facility] Hospitalist and they will evaluate for further management. Tasha Julio DO Past Med/Surg History Medical History (Updated 02/28/23 @ 12:49 by Trina Caballero) Abdominal pain Abnormal EKG Accidental acetaminophen overdose Acute GI bleeding Acute GI bleeding Acute pyelonephritis Anxiety Bacteremia Bilateral hydronephrosis Bleeding per rectum BRBPR (bright red blood per rectum) Cataract Cervical cancer Chronic pancreatitis CLL (chronic lymphocytic leukemia) Diabetes Diarrhea DVT prophylaxis Elevated bilirubin GERD (gastroesophageal reflux disease) Glaucoma Gross hematuria Guaiac positive stools History of cervical cancer Hypertension Hypokalemia correction current use of anticoagulant Metastatic cancer to intra-abdominal lymph nodes Nut allergy Paroxysmal A-fib Peripheral neuropathy Poisoning by acemetacin Recurrent UTI Recurrent UTI Tick bite Transaminitis Urgency incontinence Surgical History H/O: hysterectomy S/P appendectomy S/P cataract surgery both eyes S/P cholecystectomy Family History Mother Heart disease Father Lung disease Prostate cancer Sister COVID Arthritis Uncle Myocardial infarction Heart disease Aunt Myocardial infarction Denies family history of Ovarian cancer Breast cancer Colorectal cancer Social History Smoking Status: Never smoker Second Hand Exposure: No; Do You Dip or Chew Tobacco: No; Hx Alcohol Use: No Hx Substance Use: No Preferred Language: Libyan Communication Ability: Effective Visual Impairment: Partially Limited Hearing Ability: Normal Pin Setter Required: No Beliefs That Will Affect Care: None marital status: Current Living Situation: Spouse Current Living Situation Comment: lives at home with current occupational status: retired current occupation: [employer] How many Children do You have: 1 other: 1 alive and 1 Feels Safe at Home: Yes Childhood Exposure to Second-Hand Smoke: No Dental Care, Regularly: No Physical Activity Frequency: Does not Exercise Seatbelt Use: always Sunscreen Use: No (hardly in sun d/t medicine ) Gender Identity: Female Assistive Devices: Walker Allergies Allergies Allergy/AdvReac Type Severity Reaction Status Date / Time amoxicillin Allergy Severe Swelling Verified 02/18/23 13:41 of Lip/Tongue/Throat cefazolin Allergy Severe Hives Unverified 02/18/23 13:41 egg Allergy Severe Gastrointestinal Unverified 02/18/23 13:41 Upset nut - unspecified Allergy Severe Swelling Verified 02/18/23 13:41 of Lip/Tongue/Throat pineapple Allergy Severe Swelling Verified 02/18/23 13:41 of Lip/Tongue/Throat nitrofurantoin Allergy Mild tachycardia Verified 02/18/23 13:41 aspirin Allergy Unknown INCREASES Verified 02/18/23 13:41 BLEEDING acetaminophen [From Tylenol] AdvReac Severe liver bleed Verified 02/18/23 13:41 duloxetine AdvReac Severe SEVERE Verified 02/18/23 13:41 VOMITING caffeine AdvReac Intermediate racing Verified 02/18/23 13:41 heart lisinopril AdvReac Intermediate cough, Verified 02/18/23 13:41 white "stuff" all over lungs Sulfa (Sulfonamide AdvReac Intermediate Tinnitis Verified 02/18/23 13:41 Antibiotics) Home Meds Home Medications Medication Instructions Recorded Confirmed amlodipine 5 mg tablet 5 mg PO BID 06/24/20 02/28/23 glucosamine sulf dipot 1 cap PO QDL 06/24/20 02/28/23 chlr,msm,chond 550 mg-C 30 mg-aleena 1 mg capsule (Glucosamine Chondroitin) magnesium oxide 400 mg (241.3 mg 400 mg PO BID 06/24/20 02/28/23 magnesium) tablet omega 4-[id number]-fish oil 1,200 mg 1 cap PO QDL 06/24/20 02/28/23 (144 mg-216 mg) capsule (Fish Oil) ibrutinib 280 mg tablet (Imbruvica) 280 mg PO QAM 11/10/20 02/28/23 multivitamin 1 tab PO QDL 11/10/20 02/28/23 losartan 25 mg tablet 25 mg PO DAILY 07/19/21 02/28/23 garlic 100 mg tablet 100 mg PO DAILY 08/23/21 02/28/23 ascorbic acid (vitamin C) 500 mg 500 mg PO BID 04/13/22 02/28/23 tablet (Vitamin C) calcium carbonate 600 mg calcium 600 mg PO DAILY 11/29/22 02/28/23 (1,500 mg) tablet (Calcium) cranberry fruit concentrate 125 mg 250 mg PO DAILY 11/29/22 02/28/23 disintegrating tablet carboxymethylcellulose sodium 1 % 2 drp ophthalmic (eye) BID PRN Dry 12/17/22 02/28/23 eye liquid gel drops Eye(S) cyanocobalamin (vitamin B-12) 1,000 mcg PO DAILY 12/17/22 02/28/23 1,000 mcg tablet (Vitamin B-12) lactobacillus combination no.4 3 3,000 mmu cells PO DAILY 12/17/22 02/28/23 billion cell capsule (Probiotic) vibegron 75 mg tablet (Gemtesa) 75 mg PO DAILY 01/03/23 02/28/23 cholestyramine (with sugar) 4 gram 4 g PO BID PRN Loose stools or 01/14/23 02/28/23 powder for susp in a packet diarrhea. (Questran) d-mannose 500 mg capsule (AZO 500 mg PO DAILY 01/28/23 02/28/23 D-Mannose) omeprazole 20 mg capsule,delayed 40 mg PO DAILY 01/28/23 02/28/23 release Previous Rx's Medication Instructions Recorded lancets 28 gauge (Prodigy Lancets) #300 ea 04/23/21 ondansetron HCl 4 mg tablet 4 mg PO Q8H PRN Nausea #90 tabs 06/18/21 metoprolol tartrate 25 mg tablet 12.5 mg PO BID #30 tabs 08/25/21 cholecalciferol (vitamin D3) 25 1,000 unit PO QDL #30 tabs 11/13/21 mcg (1,000 unit) tablet (Vitamin D3) ferrous sulfate 325 mg (65 mg 325 mg PO BID #180 tabs 12/11/21 iron) tablet (FeroSul) blood sugar diagnostic (Prodigy No #100 ea 04/18/22 Coding strips) pen needle, diabetic 31 gauge x #100 ea 06/14/22 3/16" (BD Ultra-Fine Mini Pen Needle) potassium chloride 10 mEq 10 meq PO BID #180 caps 07/23/22 capsule,extended release atorvastatin 10 mg tablet 10 mg PO HS #90 tabs 09/09/22 insulin aspart U-100 100 unit/mL 7 unit (0.07 mL) subcut TID #30 mL 09/27/22 subcutaneous solution (Novolog U-100 Insulin aspart) estradiol 0.01% (0.1 mg/gram) 0.5 appful vaginal .COMPLEX #42.5 10/09/22 vaginal cream grams flash glucose sensor (FreeStyle #1 ea 11/06/22 Vicente 2 Sensor kit) flash glucose sensor (FreeStyle #1 ea 11/06/22 Vicente 2 Sensor kit) buspirone 15 mg tablet 15 mg PO TID #270 tabs 11/26/22 nystatin-triamcinolone 100,000 1 applic topical BID #30 grams 12/09/22 unit/gram-0.1 % topical ointment methenamine hippurate 1 gram tablet 1 g PO Q12H 90 days #180 tabs 01/15/23 insulin syr/ndl U100 half morena 0.3 #300 ea 02/10/23 mL 31 gauge x 5/16" (BD Insulin Syringe Ultra-Fine (half unit)) insulin glargine 100 unit/mL (3 26 unit (0.26 mL) subcut HS #15 mL 02/17/23 mL) subcutaneous pen (Basaglar KwikPen U-100 Insulin) Results & Data (ED) Vital Signs Vital Signs - 24 hr 02/28/23 05:20 02/28/23 05:47 02/28/23 05:47 Temperature 36.7 C Temperature Source Temporal Artery Scan Pulse Rate 75 74 74 Pulse Rate from SpO2 Sensor 73 Respiratory Rate 17 26 H Respiratory Effort / Characteristics Non-Labored Spontaneous Respiratory Depth Normal Respiratory Pattern Regular Blood Pressure 144/78 H 137/77 Blood Pressure Mean 100 97 Pulse Oximetry 96 96 Oxygen Delivery Method Room Air Room Air Sepsis Recent Fever Within 48 Hours No Sepsis New/Unexplained Change in Mental Status No Sepsis Action Taken by Nursing No Action Required 02/28/23 06:00 02/28/23 06:30 Temperature Temperature Source Pulse Rate 73 71 Pulse Rate from SpO2 Sensor 74 71 Respiratory Rate 17 13 Respiratory Effort / Characteristics Respiratory Depth Respiratory Pattern Blood Pressure 153/68 H 140/70 Blood Pressure Mean 96 93 Pulse Oximetry 95 95 Oxygen Delivery Method Room Air Room Air Sepsis Recent Fever Within 48 Hours Sepsis New/Unexplained Change in Mental Status Sepsis Action Taken by Nursing Laboratory Data 02/28/23 05:43 02/28/23 05:43 Lab Results 02/28/23 02/28/23 02/28/23 Range/Units 05:43 05:43 05:43 WBC 7.32 (4.8-10.8) K/ul RBC 4.04 L (4.20-5.40) M/uL Hgb 13.0 (12.0-16.0) g/dl Hct 37.1 (37.0-47.0) % MCV 91.8 (80.0-100.0) fL MCH 32.2 (25.0-34.0) pg MCHC 35.0 (32.0-36.0) g/dL RDW Std Deviation 44.2 (36.4-46.3) fL RDW Coeff of Matthew 13.2 (11.5-14.5) % Plt Count 173 (130-400) K/uL MPV 12.0 (9.4-12.4) fL Immature Gran % (Auto) 2.7 % Neut % (Auto) 62.2 % Lymph % (Auto) 23.2 % [place] % (Auto) 10.7 % Eos % (Auto) 0.7 % Baso % (Auto) 0.5 % Neut # (Auto) 4.55 (1.40-6.50) K/uL Lymph # (Auto) 1.70 (1.20-3.40) K/uL [place] # (Auto) 0.78 H (0.11-0.59) K/uL Eos # (Auto) 0.05 (0.00-0.50) K/uL Baso # (Auto) 0.04 (0.00-0.20) K/uL Immature Gran # (Auto) 0.20 (0.01-0.20) K/uL Sodium 138 (136-145) mmol/L Potassium 4.1 (3.5-5.1) mmol/L Chloride 108 H (98-107) mmol/L Carbon Dioxide 21 (21-32) mmol/L Anion Gap 9 (3-11) BUN 25 H (6-23) mg/dl Creatinine 1.01 (0.6-1.2) mg/dl Est Cr Clr Drug Dosing 50.2 ml/min Est GFR ( Amer) 60.9 ml/min Est GFR (Non-Af Amer) 52.5 ml/min BUN/Creatinine Ratio 24.8 H (10-20) Glucose 205 H (70-99(Fasting)) mg/dl Calcium 9.2 (8.6-10.3) mg/dl Total Bilirubin 1.1 H (0.2-1.0) mg/dl AST 17 (13-39) U/L ALT 16 (7-52) U/L Alkaline Phosphatase 89 (34-104) U/L Total Protein 6.6 (6.0-8.3) gm/dl Albumin 4.0 (3.4-5.0) gm/dl Globulin 2.6 (2.5-4.0) gm/dl Albumin/Globulin Ratio 1.5 (0.9-2) Urine Color Yellow Urine Appearance Cloudy A (Clear) Urine pH 5.5 (4.5-7.5) Ur Specific Belva 1.010 (1.000-1.030) Urine Protein Negative (Negative) Urine Glucose (UA) Negative (Negative) Urine Ketones Negative (Negative) Urine Blood 1+ H (Negative) Urine Nitrite Negative (Negative) Urine Bilirubin Negative (Negative) Urine Urobilinogen Negative (Negative) Ur Leukocyte Esterase 3+ H (Negative) Urine WBC (Auto) >30 H (0-5) /hpf Urine RBC (Auto) 0-4 (0-4) /hpf U Hyaline Cast (Auto) 0 (0-5) /lpf U Epithel Cells (Auto) 10-20 H (0-5) /lpf Urine Bacteria (Auto) Negative (Negative) Administered Medications Amlodipine Besylate (Amlodipine Besylate 5 Mg Tab) 5 mg PO BID [facility] Stop: 03/30/23 11:44 Last Admin: 02/28/23 14:07 Dose: 5 mg Documented By: JYOTHI Buspirone HCl (Buspirone 15 Mg Tab) 15 mg PO TID [facility] Stop: 03/30/23 13:59 Last Admin: 02/28/23 14:13 Dose: 15 mg Documented By: JYOTHI Calcium Carbonate (Calcium Carbonate 1250mg Tab) 1,250 mg PO DAILY [facility] Stop: 03/30/23 11:59 Last Admin: 02/28/23 14:08 Dose: 1,250 mg Documented By: JYOTHI Enoxaparin Sodium (Enoxaparin Inj 40 Mg/0.4 Ml Syr) 40 mg SQ Q24H [facility] Stop: 03/30/23 11:59 Last Admin: 02/28/23 14:08 Dose: 40 mg Documented By: JYOTHI Lactated Ringer's (Lr) 1,000 mls @ 80 mls/hr IV .[id number] [facility] Stop: 03/30/23 11:20 Last Admin: 02/28/23 14:01 Dose: 80 mls/hr Documented By: JYOTHI Ceftriaxone Sodium 2,000 mg/ (Dextrose) 70 mls @ 100 mls/hr IV Q24H [facility]; Protocol Stop: 03/10/23 16:59 Last Admin: 02/28/23 17:37 Dose: 100 mls/hr Documented By: MARTHA Insulin Aspart (Insulin Aspart Per Unit Charge) 0 units SC ACHS [facility] Stop: 03/30/23 11:29 Last Admin: 02/28/23 18:27 Dose: 2 units Documented By: REDD Co-signed By: MARTHA Admin: 02/28/23 14:22 Dose: Not Given Documented By: JYOTHI Co-signed By: AB Lactobacillus Acidophilus (Advanced Probiotic 1250 Mg Capsule) 2 cap PO DAILY [facility] Stop: 03/30/23 11:59 Last Admin: 02/28/23 14:10 Dose: 2 cap Documented By: JYOTHI Losartan Potassium (Losartan Potassium 25 Mg Tab) 25 mg PO DAILY [facility]IL Stop: 03/30/23 11:59 Last Admin: 02/28/23 14:10 Dose: 25 mg Documented By: JYOTHI Magnesium Oxide (Magnesium Oxide 400 Mg Tab) 400 mg PO BID NEIL Stop: 03/30/23 11:59 Last Admin: 02/28/23 14:11 Dose: 400 mg Documented By: JYOTHI Methenamine Hippurate (Methenamine Hippurate 1 Gm Tab) 1 gm PO Q12H NEIL Stop: 03/10/23 11:59 Last Admin: 02/28/23 14:11 Dose: 1 gm Documented By: JYOTHI Metoprolol Tartrate (Metoprolol Tartrate 25 Mg Tab) 12.5 mg PO BID NEIL Stop: 03/30/23 11:59 Last Admin: 02/28/23 14:11 Dose: 12.5 mg Documented By: JYOTHI Miscellaneous (Estradiol~Order Awaiting Action) 1 each N/A QS [facility] Stop: 03/30/23 12:44 Last Admin: 02/28/23 18:21 Dose: Not Given Documented By: Admin: 02/28/23 18:21 Dose: Not Given Documented By: REDD Pierre (!!Do Not Tube!!~Imbruvica~Order Awaiting Action) 1 each N/A QS [facility] Stop: 03/30/23 11:59 Last Admin: 02/28/23 18:21 Dose: Not Given Documented By: Admin: 02/28/23 18:21 Dose: Not Given Documented By: REDD Pantoprazole Sodium (Pantoprazole 40 Mg Tab) 40 mg PO DAILY [facility] Stop: 03/30/23 11:59 Last Admin: 02/28/23 14:12 Dose: 40 mg Documented By: JYOTHI Potassium Chloride (Potassium Chloride 10 Meq Tabcr) 10 meq PO BID NEIL Stop: 03/30/23 11:59 Last Admin: 02/28/23 14:12 Dose: 10 meq Documented By: JYOTHI Vibegron (Vibegron 75 Mg Tab) 75 mg PO DAILY NEIL Stop: 03/30/23 11:59 Last Admin: 02/28/23 14:13 Dose: 75 mg Documented By: JYOTHI Discontinued Medications Sodium Chloride (Nss) 500 mls @ 999 mls/hr IV .Q31M ONE Stop: 02/28/23 06:28 Last Infusion: 02/28/23 06:51 Dose: 0 mls/hr Documented By: Admin: 02/28/23 06:08 Dose: 999 mls/hr Documented By: JORDYN Ertapenem (Invanz) 10 mls @ 2 mls/min IV NOW STA Stop: 02/28/23 06:54 Last Admin: 02/28/23 07:04 Dose: 2 mls/min Documented By: JORDYN Ondansetron HCl (Ondansetron Inj 2 Mg/Ml 2 Ml Vial) 4 mg IV NOW STA Stop: 02/28/23 05:58 Last Admin: 02/28/23 06:08 Dose: 4 mg Documented By: JORDYN Discharge Plan Visit Data Chief Complaint: Urinary Symptoms Stated Complaint: UTI, VOMITTING, DIAHERRA ED Provider: Tasha Julio Discharge Problem: Complicated UTI (urinary tract infection) Discharge Instructions Interventions: ED Discharge Assessment Last Done: 02/28/23 11:22
[2023-02-28] MEDS ORDERED: ONDANSETRON INJ 2 MG/ML 2 ML VIAL IV STA (05:57)
[2023-02-28] MEDS ORDERED: SODIUM CHLORIDE 0.9% 500 ML IV ONE (05:58)
[2023-02-28 06:05] LABS: Basophils # (auto) 0.04 K/uL (0.00-0.20); Basophils % (auto) 0.5 %; Eosinophils # (auto) 0.05 K/uL (0.00-0.50); Eosinophils % (auto) 0.7 %; Hematocrit (blood only) 37.1 % (37.0-47.0); Immature Granulocytes % (auto) 2.7 %; Lymphocytes % (auto) 23.2 %; Mean Corpuscular Hemoglobin 32.2 pg (25.0-34.0); Mean Corpuscular Volume 91.8 fL (80.0-100.0); Monocytes # (auto) 0.78 K/uL (0.11-0.59); Monocytes % (auto) 10.7 %; Neutrophils # (auto) 4.55 K/uL (1.40-6.50); Neutrophils % (auto) 62.2 %; Platelet Count 173 K/uL (130-400); RDW Coefficient of Variation 13.2 % (11.5-14.5); RDW Standard Deviation 44.2 fL (36.4-46.3); Red Blood Count 4.04 M/uL (4.20-5.40); White Blood Count 7.32 K/ul (4.8-10.8)
[2023-02-28 06:18] LABS: Albumin Globulin Ratio 1.5 (0.9-2); BUN Creatinine Ratio 24.8 (10-20); Bilirubin,Total 1.1 mg/dl (0.2-1.0); Calcium 9.2 mg/dl (8.6-10.3); Creatinine Clr Calc Pharmacy 50.2 ml/min; Est GFR (African American) 60.9 ml/min; Est GFR (Non-African American) 52.5 ml/min; Globulin 2.6 gm/dl (2.5-4.0); Potassium 4.1 mmol/L (3.5-5.1); Total Protein 6.6 gm/dl (6.0-8.3)
[2023-02-28 06:29] LABS: Appearance Urine Cloudy (Clear); Bacteria Urine Automated Negative (Negative); Bilirubin Urine Negative (Negative); Blood Urine 1+ (Negative); Cast Urine Automated 0 /lpf (0-5); Color Urine Yellow; Glucose Urine UA Negative (Negative); Ketones Urine Negative (Negative); Leukocyte Esterase Urine 3+ (Negative); Nitrite Urine Negative (Negative); Protein Urine Negative (Negative); RBC Urine Automated 0-4 /hpf (0-4); Urobilinogen Urine Negative (Negative); WBC Urine Automated >30 /hpf (0-5); pH Urine 5.5 (4.5-7.5)
[2023-02-28] MEDS ORDERED: ERTAPENEM SODIUM 10 ML IV STA (06:50)
--- NOTE | 2023-02-28 11:00 | History & Physical Report ---
Date of Service February 28, 2023 Assessment & Plan (1) Recurrent UTI: Plan: UTI - UA consistent with UTI, urine culture ordered, will follow up urine culture - ID recommended uro consult during last admission, she has an outpatient appt with the at the end of the month - Plan to start on Ceftriaxone - Could consider ID consult, pending urine culture results Nausea, vomiting, diarrhea - could be secondary due to re-current antibiotic use - C. Diff rule-out? - Zofran PRN for nausea - Start on patient on probiotic DM2 - home regimen of 26 units Basaglar QHS and 7 units Novalog TID - Continue Lantis 26 units QHS with insulin sliding scale at meals - 6.9 A1c as of 01/30/2023 CLL -Follows with oncology -Hold ibrutinib while treating active infection -Monitor CBC Anxiety -Continue buspirone HLD - Continue statin HTN -Stable, controlled -Continue amlodipine, losartan, metoprolol Paroxysmal atrial fibrillation -Currently in NSR -Continue metoprolol -Eliquis previously discontinued due to bleeding/EL -No anticoagulation at present GERD -Continue Protonix Urinary incontinence -Continue Vibegron DVT ppx: Lovenox FEN/GI: DM2 Code Status: full Dispo: Medical/surgical Present on Admission?: Yes (2) Nausea & vomiting: (3) Diarrhea: (4) CLL (chronic lymphocytic leukemia): (5) Hypertension: (6) Hyperlipidemia: (7) Anxiety: (8) Urinary incontinence: (9) Paroxysmal A-fib: Admission and Anticipated Discharge Date Admission Date: February 28, 2023 History of Present Illness Chief Complaint: Dysuria due to re-occuring UTI. Primary Care Provider: DO Lisa Calderon is an 82-year-old female with a past medical history of B/L hydronephrosis secondary to UTI, extended spectrum beta-lactamase(ESBL) UTI, recurrent UTIs, CLL, A Fib, HLD, HTN, DM 2, GERD, chronic pancreatitis, and cervical cancer who presents for 2-day history of dysuria. She developed nausea, vomiting, and diarrhea that started 4 days ago. Yesterday, she went to [facility] where she was diagnosed with a urinary tract infection and started on Cipro. Her symptoms have persisted, most notably the dysuria. She woke up during the night for intense dysuria and came to the ED. She said the vomiting and diarrhea began on Friday after she ate breakfast. She did not eat anything out of the ordinary. Her spouse and daughter are doing alright and did not have any nasuea, vomiting, or diarrhea. She does not recall ingesting new foods or medications. Her vomiting resolved within a day, but the nausea and diarrhea have persisted. Due to radiation therapy, she developed incontinence and has since started wearing urine pads. She does not remember when she started wearing them, but sometime between 1989 and 2012. She has also noted oliguria. Denies fever, chills, malaise, and fatigue. In regard to her bowel movements, she has them everyday and has noted that she doesn't always wipe everything off after having a bowel movement, noticing remains on her pad. She has also noted that her UTIs have increased in frequency since she has started wearing her urine pad. She was diagnosed with cervical cancer in 1989 and with CLL in 2012. She follows up with oncology every three months (missed her last appt due to hospitalization) and reports to be stable with her CLL. Denies recent travel and denies smoking, drug, and alcohol use. She hasn't had sexual activity in the past few years. She drinks about a gallon of water a day. She is adherent with all of her medications and has finished all of her an tibiotic courses, unless was advised to discontinue by her PCP or other clinician. She said she can't take Tylenol and ibuprofen, due to liver bleed that had occurred previously. She checks her blood sugar at home - when she is "good," its 68-111. Most of the time its closer to 200. Diet consists of veggies, oatmeal for breakfast, not a real sweets person. She doesn't exercise. She has been admitted several times in the past year for dysuria associated with re-current UTIs. She had an ID consult, in which concern was raised for underlying urologic abnormalities/poor emptying predisposing her to UTIs. A pelvic CT done showed chronic bilateral hydronephrosis, hydroureter, small hyperplastic bladder, ureteral wall thickening. Urology evaluation on 01/12/23 felt that stent for hydronephrosis will increase likelihood of upper tract infection. Also consider that some of these positive urine cultures may represent colonization, with chronic non-infectious urinary symptoms--it is unusual that her symptoms would be on/off and improve with each dose of antibiotic, then return a little before she is due for her next dose. On discharge, can transition from daptomycin to linezolid 600 mg PO BID. Continue ertapenem 1 g IV daily via midline. Continue antibiotics through 02/12 to complete a 10 day course. Variety of different bacteria, notably VRE. Past cultures: 02/03 BCx x2: NGTD 02/03 UA 10-30 WBCs. UCx >3 types of organisms present, mixed probable skin issa 01/25 UCx: >100K E coli (R cipro, levo. Otherwise S) 01/11 UCx: >100K ESBL E coli (R cipro, levo, TMP/SMX. S tr, erta, nitro, pip/tazo) 01/03 UCx: >100K VRE (R cipro, levo, tetra. I nitrofurantoin. S dapto. 12/17 UCx: >100K Kleb pneumo (casiano-sensitive) 11/25 UCx: 10-100K ESBL E coli (R cipro, levo, TMP/SMX. S tr, erta, nitro, pip/tazo) 10/04 UCx: >100K ESBL E coli, 10-100K 2nd type of ESBL E coli, >100K Lactobacillus 09/16 UCx: >100K ESBL E coli (R cipro, levo, TMP/SMX, gent. S amox/clav, erta, tr, nitrofurantoin, pip/tazo.) 08/22 UCx: >100K ESBL E coli (R cipro, levo, gent. S tr, nitro, pip/tazo, tobra, TMP/SMX, erta), >100K 2nd type of E coli (R amp, amp/sul, cipro, gent, levo, nitro. S cefaz, cefepime, ceftriaxone, tobra, TMP/SMX) 08/15 Ucx: >100K ESBL E coli, >100K 2nd type of ESBL E coli 07/09 UCx: >100K ESBL E coli (R cipro, levo, gent. S erta, tr, nitro, TMP/SMX, pip/tazo) Allergies Allergy/AdvReac Type Severity Reaction Status Date / Time amoxicillin Allergy Severe Swelling Verified 02/18/23 13:41 of Lip/Tongue/Throat cefazolin Allergy Severe Hives Unverified 02/18/23 13:41 egg Allergy Severe Gastrointestinal Unverified 02/18/23 13:41 Upset nut - unspecified Allergy Severe Swelling Verified 02/18/23 13:41 of Lip/Tongue/Throat pineapple Allergy Severe Swelling Verified 02/18/23 13:41 of Lip/Tongue/Throat nitrofurantoin Allergy Mild tachycardia Verified 02/18/23 13:41 aspirin Allergy Unknown INCREASES Verified 02/18/23 13:41 BLEEDING acetaminophen [From Tylenol] AdvReac Severe liver bleed Verified 02/18/23 13:41 duloxetine AdvReac Severe SEVERE Verified 02/18/23 13:41 VOMITING caffeine AdvReac Intermediate racing Verified 02/18/23 13:41 heart lisinopril AdvReac Intermediate cough, Verified 02/18/23 13:41 white "stuff" all over lungs Sulfa (Sulfonamide AdvReac Intermediate Tinnitis Verified 02/18/23 13:41 Antibiotics) Home Medications Medication Instructions Recorded Confirmed Type amlodipine 5 mg tablet 5 mg PO BID 06/24/20 02/28/23 History glucosamine sulf dipot 1 cap PO QDL 06/24/20 02/28/23 History chlr,msm,chond 550 mg-C 30 mg-aleena 1 mg capsule (Glucosamine Chondroitin) magnesium oxide 400 mg (241.3 mg 400 mg PO BID 06/24/20 02/28/23 History magnesium) tablet omega 5-efj-zsf-fish oil 1,200 mg 1 cap PO QDL 06/24/20 02/28/23 History (144 mg-216 mg) capsule (Fish Oil) ibrutinib 280 mg tablet (Imbruvica) 280 mg PO QAM 11/10/20 02/28/23 History multivitamin 1 tab PO QDL 11/10/20 02/28/23 History lancets 28 gauge (Prodigy Lancets) #300 ea 04/23/21 02/18/23 Rx ondansetron HCl 4 mg tablet 4 mg PO Q8H PRN Nausea #90 tabs 06/18/21 02/28/23 Rx losartan 25 mg tablet 25 mg PO DAILY 07/19/21 02/28/23 History garlic 100 mg tablet 100 mg PO DAILY 08/23/21 02/28/23 History metoprolol tartrate 25 mg tablet 12.5 mg PO BID #30 tabs 08/25/21 02/28/23 Rx cholecalciferol (vitamin D3) 25 1,000 unit PO QDL #30 tabs 11/13/21 02/28/23 Rx mcg (1,000 unit) tablet (Vitamin D3) ferrous sulfate 325 mg (65 mg 325 mg PO BID #180 tabs 12/11/21 02/28/23 Rx iron) tablet (FeroSul) ascorbic acid (vitamin C) 500 mg 500 mg PO BID 04/13/22 02/28/23 History tablet (Vitamin C) blood sugar diagnostic (Prodigy No #100 ea 04/18/22 02/18/23 Rx Coding strips) pen needle, diabetic 31 gauge x #100 ea 06/14/22 02/18/23 Rx 3/16" (BD Ultra-Fine Mini Pen Needle) potassium chloride 10 mEq 10 meq PO BID #180 caps 07/23/22 02/28/23 Rx capsule,extended release atorvastatin 10 mg tablet 10 mg PO HS #90 tabs 09/09/22 02/28/23 Rx insulin aspart U-100 100 unit/mL 7 unit (0.07 mL) subcut TID #30 mL 09/27/22 02/28/23 Rx subcutaneous solution (Novolog U-100 Insulin aspart) estradiol 0.01% (0.1 mg/gram) 0.5 appful vaginal .COMPLEX #42.5 10/09/22 02/28/23 Rx vaginal cream grams flash glucose sensor (FreeStyle #1 ea 11/06/22 02/18/23 Rx Vicente 2 Sensor kit) flash glucose sensor (FreeStyle #1 ea 11/06/22 02/18/23 Rx Vicente 2 Sensor kit) buspirone 15 mg tablet 15 mg PO TID #270 tabs 11/26/22 02/28/23 Rx calcium carbonate 600 mg calcium 600 mg PO DAILY 11/29/22 02/28/23 History (1,500 mg) tablet (Calcium) cranberry fruit concentrate 125 mg 250 mg PO DAILY 11/29/22 02/28/23 History disintegrating tablet nystatin-triamcinolone 100,000 1 applic topical BID #30 grams 12/09/22 02/28/23 Rx unit/gram-0.1 % topical ointment carboxymethylcellulose sodium 1 % 2 drp ophthalmic (eye) BID PRN Dry 12/17/22 02/28/23 History eye liquid gel drops Eye(S) cyanocobalamin (vitamin B-12) 1,000 mcg PO DAILY 12/17/22 02/28/23 History 1,000 mcg tablet (Vitamin B-12) lactobacillus combination no.4 3 3,000 mmu cells PO DAILY 12/17/22 02/28/23 History billion cell capsule (Probiotic) vibegron 75 mg tablet (Gemtesa) 75 mg PO DAILY 01/03/23 02/28/23 History cholestyramine (with sugar) 4 gram 4 g PO BID PRN Loose stools or 01/14/23 02/28/23 History powder for susp in a packet diarrhea. (Questran) methenamine hippurate 1 gram tablet 1 g PO Q12H 90 days #180 tabs 01/15/23 Rx d-mannose 500 mg capsule (AZO 500 mg PO DAILY 01/28/23 02/28/23 History D-Mannose) omeprazole 20 mg capsule,delayed 40 mg PO DAILY 01/28/23 02/28/23 History release insulin syr/ndl U100 half morena 0.3 #300 ea 02/10/23 02/18/23 Rx mL 31 gauge x 5/16" (BD Insulin Syringe Ultra-Fine (half unit)) insulin glargine 100 unit/mL (3 26 unit (0.26 mL) subcut HS #15 mL 02/17/23 02/28/23 Rx mL) subcutaneous pen (Basaglar KwikPen U-100 Insulin) Past Med/Surg History Medical History (Updated 02/28/23 @ 12:49 by Trina Caballero) Abdominal pain Abnormal EKG Accidental acetaminophen overdose Acute GI bleeding Acute GI bleeding Acute pyelonephritis Anxiety Bacteremia Bilateral hydronephrosis Bleeding per rectum BRBPR (bright red blood per rectum) Cataract Cervical cancer Chronic pancreatitis CLL (chronic lymphocytic leukemia) Diabetes Diarrhea DVT prophylaxis Elevated bilirubin GERD (gastroesophageal reflux disease) Glaucoma Gross hematuria Guaiac positive stools History of cervical cancer Hypertension Hypokalemia half-way current use of anticoagulant Metastatic cancer to intra-abdominal lymph nodes Nut allergy Paroxysmal A-fib Peripheral neuropathy Poisoning by acemetacin Recurrent UTI Recurrent UTI Tick bite Transaminitis Urgency incontinence Surgical History H/O: hysterectomy S/P appendectomy S/P cataract surgery both eyes S/P cholecystectomy Family History Mother Heart disease Father Lung disease Prostate cancer Sister COVID Arthritis Uncle Myocardial infarction Heart disease Aunt Myocardial infarction Denies family history of Ovarian cancer Breast cancer Colorectal cancer Social History Smoking Status: Never smoker Second Hand Exposure: No; Do You Dip or Chew Tobacco: No; Hx Alcohol Use: No Hx Substance Use: No Preferred Language: Kyrgyz Communication Ability: Effective Visual Impairment: Partially Limited Hearing Ability: Normal Temporary Receptionist Required: No Beliefs That Will Affect Care: None marital status: Current Living Situation: Spouse Current Living Situation Comment: lives at home with current occupational status: retired current occupation: [email or web address] How many Children do You have: 1 other: 1 alive and 1 Feels Safe at Home: Yes Childhood Exposure to Second-Hand Smoke: No Dental Care, Regularly: No Physical Activity Frequency: Does not Exercise Seatbelt Use: always Sunscreen Use: No (hardly in sun d/t medicine ) Gender Identity: Female Assistive Devices: Walker Review of Systems Review of Systems: ROS + occasional constipation + numbness and tingling in lower extremities due to diabetic neuropathy + anxiety (on medication) Physical Exam Physical Exam: Vital Signs: BP 140/70, Pulse 78, Resp 13, Temp 36.7, O2 95 on room air Constitutional: WD/WN, vitals as above Neck: trachea midline, no thyromegaly Respiratory: normal respiratory effort, lungs clear to auscultation Cardiovascular: RRR, no murmur, no edema Heart Sounds: normal S1 and normal S2 Extremities: normal capillary refill Gastrointestinal (Abdomen): normal bowel sounds, soft, nontender, no hepatosplenomegaly Musculoskeletal: no cyanosis or clubbing, extremities motor strength 5/5 Skin: Significant number of cervical melanocytic nevi. Scabbed lesions along the anterior left leg. Neurologic: PERRL, EOMI, accommodation nl, no face palsy, no dysarthria Distal leg sensation diminished bilaterally. Patient was unable to distinguish dull from sharp sensation at feet. Patient unable at reliably determine sensation distally from about 4inches below the knee. Patient mentioned loss of sensation in her right leg more than her left leg. Psychiatric: A+Ox3, euthymic affect Genitourinary: No CVA tenderness. No suprapubic tenderness upon palpation. Lymphatic: No cervical or supraclavicular lymphadenopathy Results & Data Results & Data Vital Signs (Past 12 Hours) Vital Signs Temp Pulse Resp BP Pulse Ox O2 Del Method 02/28/23 09:51 78 02/28/23 06:30 71 13 140/70 95 Room Air 02/28/23 06:00 73 17 153/68 H 95 Room Air 02/28/23 05:47 74 26 H 137/77 96 Room Air 02/28/23 05:47 74 02/28/23 05:20 36.7 C 75 17 144/78 H 96 Room Air Code Status & VTE Plan VTE Prophylaxis Plan VTE Prophylaxis will be ordered: Yes Supervising Physician Co-Signing Physician Notes I personally examined the patient and verified all chavira points of history and exam, discussed case, and agree with decision making with Lucy Velasco MS2 Dysuria, nausea, vomiting, diarrhea. Nausea vomiting and diarrhea are all better. Dysuria not ongoing since admission. Multiple and recurrent UTIs. Wears a pad for urinary incontinence and changes it often, but does have some difficulty cleaning after bowel movementshas wet wipes. Showers a few days a week. Sugars under good control, but does note some over 200. Has continuous g lucose monitor. Vitals noted, in general she is awake and alert pleasant no distress. HEENT normocephalic atraumatic mucous membranes moist. Breathing unlabored no accessory muscle use good effort. Skin shows no rashes no pallor or icterus. Neuro without focal deficits. Labs and diagnostics and prior cultures noted recurrent UTIconsidered pyelonephritis given nausea and vomiting, but given that she also had diarrhea is obviously far less likely, and also given her timeline, it sounds like the nausea vomiting diarrhea came first and then the lower urinary tract symptomsso I wonder if the diarrhea did not lead to the UTI. Based on her lack of severe sepsis/septic shock, as well as based on her most recent culturesgive trial to ceftriaxone for now (discussed her multitude of antibiotic reactions, and she denies ever having anaphylaxis or hives to me, and on review under cefazolin where it has hives listed, it does list that she tolerate ceftriaxone)this of course would allow for easier transition home if her culture and sensitivities corroborate. Of course if her culture shows resistance, will adjust antibiotics accordingly. Discussed trying to clean pelvis better, discussed postprandial glucose control (but not wanting to tighten sugars overall more given that her A1c is so good) DVT prophylaxis with Lovenox
[2023-02-28] MEDS ORDERED: ALUMINUM/MAGNESIUM SUSP 30 ML UDC PO PRN (11:21)
[2023-02-28] MEDS ORDERED: MAGNESIUM HYDROXIDE SUSP 30 ML UDC PO PRN (11:21)
[2023-02-28] MEDS ORDERED: CRANBERRY FRUIT PO SCH (11:21)
[2023-02-28] MEDS ORDERED: ONDANSETRON INJ 2 MG/ML 2 ML VIAL IV PRN (11:21)
[2023-02-28] MEDS ORDERED: POLYETHYLENE (MIRALAX) 17 GM PACK PO PRN (11:21)
[2023-02-28] MEDS ORDERED: ONDANSETRON 4 MG OD TAB PO PRN (11:49)
[2023-02-28] MEDS: LACTATED RINGER'S 1,000 ML IV SCH ×2 (14:01→22:52)
[2023-02-28] MEDS: amLODIPine BESYLATE 5 MG TAB PO SCH ×2 (14:07→21:14)
[2023-02-28] MEDS: CALCIUM CARBONATE 1250MG TAB PO SCH (14:08)
[2023-02-28] MEDS: ENOXAPARIN INJ 40 MG/0.4 ML SYR SQ SCH (14:08)
[2023-02-28] MEDS: ADVANCED PROBIOTIC 1250 MG CAPSULE PO SCH (14:10)
[2023-02-28] MEDS: LOSARTAN POTASSIUM 25 MG TAB PO SCH (14:10)
[2023-02-28] MEDS: MAGNESIUM OXIDE 400 MG TAB PO SCH ×2 (14:11→21:14)
[2023-02-28] MEDS: METOPROLOL TARTRATE 25 MG TAB PO SCH ×2 (14:11→21:15)
[2023-02-28] MEDS: METHENAMINE HIPPURATE 1 GM TAB PO SCH ×2 (14:11→23:52)
[2023-02-28] MEDS: PANTOprazole 40 MG TAB PO SCH (14:12)
[2023-02-28] MEDS: POTASSIUM CHLORIDE 10 MEQ TABCR PO SCH ×2 (14:12→21:14)
[2023-02-28] MEDS: VIBEGRON 75 MG TAB PO SCH (14:13)
[2023-02-28] MEDS: busPIRone 15 MG TAB PO SCH ×2 (14:13→21:14)
[2023-02-28] MEDS: INSULIN ASPART PER UNIT CHARGE SC SCH ×3 (14:22→21:17)
--- NOTE | 2023-02-28 16:55 | Billing Data ---
Date of Service February 28, 2023 Coding Level of Care Code 32355 INT INP/OBS CARE
[2023-02-28] MEDS ORDERED: cefTRIAXone SODIUM 2,000 MG in DEXTROSE 5% 50 ML IV SCH (17:00)
[2023-02-28] MEDS ORDERED: ATORVASTATIN 10 MG TAB PO SCH (21:00)
[2023-02-28] MEDS ORDERED: LANTUS PER UNIT CHARGE SC SCH (21:00)
[2023-03-01 06:35] LABS: Basophils # (auto) 0.03 K/uL (0.00-0.20); Basophils % (auto) 0.6 %; Eosinophils # (auto) 0.05 K/uL (0.00-0.50); Eosinophils % (auto) 0.9 %; Hematocrit (blood only) 34.7 % (37.0-47.0); Immature Granulocytes # (auto) 0.16 K/uL (0.01-0.20); Lymphocytes # (auto) 1.29 K/uL (1.20-3.40); Lymphocytes % (auto) 24.2 %; Mean Corpuscular Hemoglobin 31.3 pg (25.0-34.0); Mean Corpuscular Hgb Conc 34.6 g/dL (32.0-36.0); Mean Corpuscular Volume 90.4 fL (80.0-100.0); Mean Platelet Volume 12.5 fL (9.4-12.4); Monocytes % (auto) 11.2 %; Neutrophils # (auto) 3.21 K/uL (1.40-6.50); Neutrophils % (auto) 60.1 %; Platelet Count 134 K/uL (130-400); RDW Coefficient of Variation 13.2 % (11.5-14.5); RDW Standard Deviation 43.3 fL (36.4-46.3); Red Blood Count 3.84 M/uL (4.20-5.40); White Blood Count 5.34 K/ul (4.8-10.8)
[2023-03-01 07:04] LABS: BUN Creatinine Ratio 14.3 (10-20); Calcium 8.7 mg/dl (8.6-10.3); Creatinine Clr Calc Pharmacy 48.3 ml/min; Est GFR (African American) 58.1 ml/min; Est GFR (Non-African American) 50.1 ml/min; Potassium 3.7 mmol/L (3.5-5.1)
--- NOTE | 2023-03-01 07:45 | Hospitalist Progress Note ---
Date of Service March 01, 2023 Assessment & Plan (1) Recurrent UTI: (2) Bilateral hydronephrosis: (3) Recurrent UTI: (4) Diarrhea: (5) long-term current use of anticoagulant: (6) History of cervical cancer: (7) Paroxysmal A-fib: (8) Dysuria: (9) Bilateral hydronephrosis: Plan Lisa is an 82 y/o female with PMHx of B/L hydronephrosis secondary to UTI, extended spectrum beta-lactamase(ESBL) UTI, recurrent UTIs, CLL on daily Imbruvica, A Fib, HLD, HTN, DM 2, GERD, chronic pancreatitis, and cervical cancer who was admitted for recurrent UTI associated with nausea, vomiting, and diarrhea that started 4 days before admission. She was evaluated at bedside today and found clinically and hemodynamically stable, sitting, afebrile, AAOx3, and in no acute distress. Today, her labs showed adequate Hb at 12.0, WBC at 5.34, and platelets at 134K. BMP showing mild hyperchloremia of 109 but no other electrolyte abnormalities. Renal markers within reference range. Hyperglycemia at 133. Urine culture results pending. UTI - UA consistent with UTI, urine culture ordered, will follow up urine culture - ID recommended uro consult during last admission, she has an outpatient appt with the at the end of the month - Start on Ceftriaxone IV (02/28). Progressed to Cefdinir 300mg PO bid (03/01) in preparation for possible discharge. May consider changing antibiotic based on urine culture result. - Could consider ID consult, pending urine culture results Nausea, vomiting, diarrhea - could be secondary due to re-current antibiotic use - Zofran PRN for nausea - Started on patient on probiotic DM2 - home regimen of 26 units Basaglar QHS and 7 units Novalog TID - Continue Lantis 26 units QHS with insulin sliding scale at meals - 6.9 A1c as of 01/30/2023 CLL -Follows with oncology q3 months (missed last appointment due to hospitalization) -Hold ibrutinib while treating active infection -Monitor CBC Anxiety -Continue buspirone HLD - Continue statin HTN -Stable, controlled -Continue amlodipine, losartan, metoprolol Paroxysmal atrial fibrillation -Currently in NSR -Continue metoprolol -Eliquis previously discontinued due to bleeding/EL -No anticoagulation at present GERD -Continue Protonix Urinary incontinence -Continue Vibegron DVT ppx: Lovenox FEN/GI: DM2 Code Status: full Dispo: Medical/surgical Admission and Anticipated Discharge Date Admission Date: February 28, 2023 Mary Gonzalez is an 82-year-old female with a past medical history of B/L hydronephrosis secondary to UTI, extended spectrum beta-lactamase(ESBL) UTI, recurrent UTIs, CLL on daily Imbruvica, A Fib, HLD, HTN, DM 2, GERD, chronic pancreatitis, and cervical cancer who presents for 2-day history of dysuria. She developed nausea, vomiting, and diarrhea that started 4 days before arriving at the ER. On 02/27, she went to [facility] where she was diagnosed with a urinary tract infection and started on Cipro. Her symptoms have persisted, most notably the dysuria. She woke up during the night for intense dysuria and came to the ED on 02/28.She said the vomiting and diarrhea began on Friday after she ate breakfast. She did not eat anything out of the ordinary. Her spouse and daughter are doing alright and did not have any nausea, vomiting, or diarrhea. She does not recall ingesting new foods or medications. Her vomiting resolved within a day, but the nausea and diarrhea have persisted. Due to radiation therapy, she developed incontinence and has since started wearing urine pads. She does not remember when she started wearing them, but sometime between 1989 and 2012. She has also noted oliguria. Today she refers feeling well and has had no chest pain, palpitations, SOB, lightheadedness, fevers, chills, malaise, or fatigue. She refers improvement in her dysuria and oliguria, but indicates it is somewhat present. This morning she had a loose bowel movement that was dark brown in color (not black). She states that due to her hx of radiation therapy, she occasionally gets loose BM at home that she manages with Questran powder since Immodium and other OTC remedies have not seemed to help. Review of Systems Review of Systems: As per HPI. Physical Exam Physical Exam: General: well-appearing, AAOX3, afebrile, no acute distress Chest: symmetric expansions with respirations Cardio: RRR, no rubs/murmurs/gallops Respiratory: CTA bilaterally, no respiratory distress Abdominal: soft and depressible, non-distended, non-tender, mild suprapubic tenderness Extremity: no swelling in bilateral lower extremities, negative Colt's sign bilaterally, no deformities, no cyanosis Integumentary: warm, dry, pink Results & Data Results & Data Vital Signs (Past 12 Hours) Vital Signs Temp Pulse Resp BP Pulse Ox O2 Del Method 03/01/23 07:05 36.5 C 69 17 135/78 97 Room Air 02/28/23 21:11 36.7 C 68 17 154/75 H 94 Room Air Resident Activity Tracking Resident Involvement: Resident Care Provided Care Provided: Adult Hospital Medicine
[2023-03-01] MEDS: VIBEGRON 75 MG TAB PO SCH (08:11)
[2023-03-01] MEDS: busPIRone 15 MG TAB PO SCH ×2 (08:11→13:58)
[2023-03-01] MEDS: PANTOprazole 40 MG TAB PO SCH (08:11)
[2023-03-01] MEDS: amLODIPine BESYLATE 5 MG TAB PO SCH (08:12)
[2023-03-01] MEDS: POTASSIUM CHLORIDE 10 MEQ TABCR PO SCH (08:12)
[2023-03-01] MEDS: METOPROLOL TARTRATE 25 MG TAB PO SCH (08:12)
[2023-03-01] MEDS: LOSARTAN POTASSIUM 25 MG TAB PO SCH (08:13)
[2023-03-01] MEDS: ADVANCED PROBIOTIC 1250 MG CAPSULE PO SCH (08:14)
[2023-03-01] MEDS: CALCIUM CARBONATE 1250MG TAB PO SCH (08:14)
[2023-03-01] MEDS: MAGNESIUM OXIDE 400 MG TAB PO SCH (08:14)
[2023-03-01] MEDS: INSULIN ASPART PER UNIT CHARGE SC SCH ×3 (08:20→17:25)
[2023-03-01] MEDS ORDERED: CEFDINIR 300 MG CAP PO SCH (09:45)
[2023-03-01] MEDS: LACTATED RINGER'S 1,000 ML IV SCH (10:00)
[2023-03-01] MEDS: METHENAMINE HIPPURATE 1 GM TAB PO SCH (11:59)
[2023-03-01] MEDS: ENOXAPARIN INJ 40 MG/0.4 ML SYR SQ SCH (12:00)
[2023-03-01] MEDS ORDERED: CYANOCOBALAMIN (B-12) 500 MCG TABLET PO SCH (12:00)
[2023-03-01] MEDS ORDERED: CEFDINIR 300 MG CAP PO STA (14:05)
--- NOTE | 2023-03-01 16:13 | Communication Note ---
Date of Service: March 01, 2023 By CMS guidelines, a determination that the admission or continued stay is not medically necessary has been made by a member of the UR committee and gareth thurman for this hospital stay, therefore a Code 44 will be completed and the Inpatient admission will be changed to outpatient.
--- NOTE | 2023-03-01 16:55 | Discharge Summary ---
Date of Service March 01, 2023 Admission HPI Per Admitting Provider Lisa is an 82-year-old female with a past medical history of B/L hydronephrosis secondary to UTI, extended spectrum beta-lactamase(ESBL) UTI, recurrent UTIs, CLL, A Fib, HLD, HTN, DM 2, GERD, chronic pancreatitis, and cervical cancer who presents for 2-day history of dysuria. She developed nausea, vomiting, and diarrhea that started 4 days ago. Yesterday, she went to [facility] where she was diagnosed with a urinary tract infection and started on Cipro. Her symptoms have persisted, most notably the dysuria. She woke up during the night for intense dysuria and came to the ED. She said the vomiting and diarrhea began on Friday after she ate breakfast. She did not eat anything out of the ordinary. Her spouse and daughter are doing alright and did not have any nasuea, vomiting, or diarrhea. She does not recall ingesting new foods or medications. Her vomiting resolved within a day, but the nausea and diarrhea have persisted. Due to radiation therapy, she developed incontinence and has since started wearing urine pads. She does not remember when she started wearing them, but sometime between 1989 and 2012. She has also noted oliguria. Denies fever, chills, malaise, and fatigue. In regard to her bowel movements, she has them everyday and has noted that she doesn't always wipe everything off after having a bowel movement, noticing remains on her pad. She has also noted that her UTIs have increased in frequency since she has started wearing her urine pad. She was diagnosed with cervical cancer in 1989 and with CLL in 2012. She follows up with oncology every three months (missed her last appt due to hospitalization) and reports to be stable with her CLL. Denies recent travel and denies smoking, drug, and alcohol use. She hasn't had sexual activity in the past few years. She drinks about a gallon of water a day. She is adherent with all of her medications and has finished all of her antibiotic courses, unless was advised to discontinue by her PCP or other clinician. She said she can't take Tylenol and ibuprofen, due to liver bleed that had occurred previously. She checks her blood sugar at home - when she is "good," its 68-111. Most of the time its closer to 200. Diet consists of veggies, oatmeal for breakfast, not a real sweets person. She doesn't exercise. She has been admitted several times in the past year for dysuria associated with re-current UTIs. She had an ID consult, in which concern was raised for underlying urologic abnormalities/poor emptying predisposing her to UTIs. A pelvic CT done showed chronic bilateral hydronephrosis, hydroureter, small hyperplastic bladder, ureteral wall thickening. Urology evaluation on 01/12/23 felt that stent for hydronephrosis will increase likelihood of upper tract infection. Also consider that some of these positive urine cultures may represent colonization, with chronic non-infectious urinary symptoms--it is unusual that her symptoms would be on/off and improve with each dose of an tibiotic, then return a little before she is due for her next dose. On discharge, can transition from daptomycin to linezolid 600 mg PO BID. Continue ertapenem 1 g IV daily via midline. Continue antibiotics through 02/12 to complete a 10 day course. Variety of different bacteria, notably VRE. Past cultures: 02/03 BCx x2: NGTD 02/03 UA 10-30 WBCs. UCx >3 types of organisms present, mixed probable skin issa 01/25 UCx: >100K E coli (R cipro, levo. Otherwise S) 01/11 UCx: >100K ESBL E coli (R cipro, levo, TMP/SMX. S tr, erta, nitro, pip/tazo) 01/03 UCx: >100K VRE (R cipro, levo, tetra. I nitrofurantoin. S dapto. 12/17 UCx: >100K Kleb pneumo (casiano-sensitive) 11/25 UCx: 10-100K ESBL E coli (R cipro, levo, TMP/SMX. S tr, erta, nitro, pip/tazo) 10/04 UCx: >100K ESBL E coli, 10-100K 2nd type of ESBL E coli, >100K Lactobacillus 09/16 UCx: >100K ESBL E coli (R cipro, levo, TMP/SMX, gent. S amox/clav, erta, tr, nitrofurantoin, pip/tazo.) 08/22 UCx: >100K ESBL E coli (R cipro, levo, gent. S tr, nitro, pip/tazo, tobra, TMP/SMX, erta), >100K 2nd type of E coli (R amp, amp/sul, cipro, gent, levo, nitro. S cefaz, cefepime, ceftriaxone, tobra, TMP/SMX) 08/15 Ucx: >100K ESBL E coli, >100K 2nd type of ESBL E coli 07/09 UCx: >100K ESBL E coli (R cipro, levo, gent. S erta, tr, nitro, TMP/SMX, pip/tazo) Admission Exam Per Admitting Provider Physical Exam: Vital Signs: BP 140/70, Pulse 78, Resp 13, Temp 36.7, O2 95 on room air Constitutional: WD/WN, vitals as above Neck: trachea midline, no thyromegaly Respiratory: normal respiratory effort, lungs clear to auscultation B Cardiovascular: RRR, no murmur, no edema Heart Sounds: normal S1 and normal S2 Extremities: normal capillary refill Gastrointestinal (Abdomen): normal bowel sounds, soft, nontender, no hepatosplenomegaly Musculoskeletal: no cyanosis or clubbing, extremities motor strength 5/5 Skin: Significant number of cervical melanocytic nevi. Scabbed lesions along the anterior left leg. Neurologic: PERRL, EOMI, accommodation nl, no face palsy, no dysarthria Distal leg sensation diminished bilaterally. Patient was unable to distinguish dull from sharp sensation at feet. Patient unable at reliably determine sensation distally from about 4inches below the knee. Patient mentioned loss of sensation in her right leg more than her left leg. Psychiatric: A+Ox3, euthymic affect Genitourinary: No CVA tenderness. No suprapubic tenderness upon palpation. Lymphatic: No cervical or supraclavicular lymphadenopathy Principal Diagnosis Urinary Tract Infection (UTI) Discharge Exam General: well-appearing, AAOX3, afebrile, no acute distress Chest: symmetric expansions with respirations Cardio: RRR, no rubs/murmurs/gallops Respiratory: CTA bilaterally, no respiratory distress Abdominal: soft and depressible, non-distended, non-tender, mild suprapubic tenderness Extremity: no swelling in bilateral lower extremities, negative Colt's sign bilaterally, no deformities, no cyanosis Integumentary: warm, dry, pink Discharge Data Allergies Allergy/AdvReac Type Severity Reaction Status Date / Time amoxicillin Allergy Severe Swelling Verified 02/18/23 13:41 of Lip/Tongue/Throat cefazolin Allergy Severe Hives Unverified 02/18/23 13:41 egg Allergy Severe Gastrointestinal Unverified 02/18/23 13:41 Upset nut - unspecified Allergy Severe Swelling Verified 02/18/23 13:41 of Lip/Tongue/Throat pineapple Allergy Severe Swelling Verified 02/18/23 13:41 of Lip/Tongue/Throat nitrofurantoin Allergy Mild tachycardia Verified 02/18/23 13:41 aspirin Allergy Unknown INCREASES Verified 02/18/23 13:41 BLEEDING acetaminophen [From Tylenol] AdvReac Severe liver bleed Verified 02/18/23 13:41 duloxetine AdvReac Severe SEVERE Verified 02/18/23 13:41 VOMITING caffeine AdvReac Intermediate racing Verified 02/18/23 13:41 heart lisinopril AdvReac Intermediate cough, Verified 02/18/23 13:41 white "stuff" all over lungs Sulfa (Sulfonamide AdvReac Intermediate Tinnitis Verified 02/18/23 13:41 Antibiotics) Consultations 02/28/23 07:18 ED Decision to Admit Stat Hospital Course (1) Recurrent UTI: (2) Bilateral hydronephrosis: (3) Diarrhea: (4) intermediate current use of anticoagulant: (5) History of cervical cancer: (6) Paroxysmal A-fib: (7) Dysuria: Dinh Gonzalez is an 82 y/o female with PMHx of B/L hydronephrosis secondary to UTI, extended spectrum beta-lactamase(ESBL) UTI, recurrent UTIs, CLL on daily Imbruvica, A Fib, HLD, HTN, DM 2, GERD, chronic pancreatitis, and cervical cancer who was admitted for recurrent UTI associated with nausea, vomiting, and diarrhea that started 4 days before admission. She was evaluated at bedside today and found clinically and hemodynamically stable, sitting, afebrile, AAOx3, and in no acute distress. Today, her labs showed adequate Hb at 12.0, WBC at 5.34, and platelets at 134K. BMP showing mild hyperchloremia of 109 but no other electrolyte abnormalities. Renal markers within reference range. Hyperglycemia at 133. Urine culture results pending. UTI UA on arrival to the ED was consistent with UTI, urine culture was ordered and results are still pending. In the mean time, patient was started on IV Ceftriaxone. This was then transitioned to Cefdenir 300mg PO BID in preparation for patient's discharge. Depending on the urine culture results and the sensitivities, may contact patient should a change in antibiotic choice be warranted. Infectious Disease recommended urology consult during last admission, and she has an outpatient appt with the at the end of the month. Nausea, vomiting, diarrhea Considered possible this is secondary due to recurrent antibiotic use. However, Zofran was given as needed for nausea and she was started on a probiotic to try and lessen these symptoms. DM2 She has a home regimen of 26 units Basaglar QHS and 7 units Novalog TID. During her hospital stay, she continued Lantis 26 units QHS with insulin sliding scale at meals. Her last A1c was 6.9 (01/30/2023), so appears to be well controlled. Chronic Lymphocytic Leukemia (CLL) She follows up with oncology every 3 months, but she missed her last appointment due to hospitalization. During her admission, her Ibrutinib was held due to her active infection. CBC during her admission showed adequate hemoglobin and platelets, and her WBC below 6K. Anxiety Controlled with buspirone, as she was at home. HLD Her home statin was continued. HTN BPs have been stable and well-controlled with amlodipine, losartan, and metoprolol. Paroxysmal atrial fibrillation During her admission, she remained in normal sinus rhythm. Metoprolol was continued and Eliquis was stopped due to bleeding in the past. Currently not on anticoagulation. GERD Controlled with Protonix Urinary incontinence Vibegron was continued Patient was found to be clinically and hemodynamically stable for discharge. Will continue oral antibiotics (Cefdinir) and f/u with her PCP and her urologist as an outpatient. Total Time Total Time Spent Total Time Spent (In Minutes): <30 Discharge Plan Discharge Items Patient Disposition: Home - Self-Care Reason For Visit: N/V Discharge Diagnosis: recurrent urinary tract infection Activity: Resume your previous activity Non-emergency contact: Primary Care Provider and Urologist Call non-emergency contact if: you have any medication questions Follow-up/Referrals: Keith Hutchinson DO [Primary Care Provider] - 03/17/23 10:00 am Diet: Regular Addtl Attending Provider Instructions: Urinary tract infection -Fortunately with this infection, you are not septic, and symptoms seem to be getting better quickly -Your urine culture is not finalized yet, although I suspect its not going to show us the offending bacteria (it looks like may be too much skin or pelvic bacteria contaminated thingsand I doubt were going to have a clear culture result on this one) but since you are getting better on cephalosporin antibiotics (first the ceftriaxone, now the oral cefdinirboth of which are close cousins), we will be able to get you home finishing a course of oral cefdinir -We will follow your culturesand if we are surprised that it grows something that is not susceptible to the cefdinir, obviously we will call, but otherwise we will plan on 5 more days of cefdinir (to round out 7 days of total treatment) with your next dose tomorrow Recurrent urinary tract infections -While this infection is very easy to treat, obviously recurrent infections have been a significant problem for you -We have 2 ideas that may help cut down on the overall frequency of the infections, although of course like we discussed, there is rarely a "magic bullet" but more the ability to cut down on how often the infections happen -Since most urinary tract infections come from pelvic floor bacteria, and the "offending" pelvic floor bacteria tends to be intestinal bacteriatrying to keep your pelvic floor is clean as is reasonable should help. Like we discussed, given that you do have some difficulty getting totally clean after bowel movements, I would recommend showering dailymostly with the ability to use soap and water to wash your pelvic floor and make sure that it is clean. While we joked about the ability to prescribe a bidet, honestly if you were able to get 1 that would probably be helpful to -Looking at your sugar, there may be small changes that are less likely to make a huge impact, but still possibly helping cut down on the frequency of infections. The idea behind it would be that while your sugar is really under perfect control (with an A1c of 6.9%) anytime her sugar goes above 200 some of it spills into her urine. When we have more glucose in her urine, we have more fuel for bacteria to grow on. Most of the time whenever somebody is under perfect control, they can still have some spiking sugars after they eat -First, lets have you follow closely to see if you really do spike much after you eat. Typically somebody will have a peak sugar 1-2 hours after they are done eating, so use your glucose monitor to see how high you spike in the hours after you are done eating. -If you do see sugars that get high after you eat, then we have 2 possible ways to fix this One is very simple: Simply eat less simple/starchy/breaded carbohydratesand that will reduce how high your sugar can spike The second is still fairly easy, but requires a bit of adjusting of your insulin: When people are on long and short acting insulin like you are, usually we do like to see the insulin divided about 50% long-acting and about 50% short actingyou are in that range, given that you take 26 units of your long-acting insulin at bedtime, and across the course of the day 21 units of the short acting. If we reversed the ratio, and had you take 21 units of the long-acting, and were a little bit more "heavy handed" covering meals with 9 units instead of 7, that may also reduce sugars after you eat, again only if you are seeing a spike above 200 and that 1-2 hours after you eat window. This insulin shuffling is very easy to do, but I would definitely want your PCP overseeing things to help you troubleshoot if you go this route Pending Studies at Discharge: No Stand-Alone Forms: [facility], Smoking Cessation Medications and DC Order Prescriptions: New cefdinir 300 mg Capsule 300 mg PO BID Qty: 10 0RF cefdinir 300 mg capsule 300 mg PO BID 5 Days Qty: 10 0RF Continued (DME) lancets [Prodigy Lancets] 28 gauge misc See Rx Instructions .Route Qty: 300 3RF Rx Instructions: As directed: check tid ondansetron HCl 4 mg tablet 4 mg PO Q8H PRN (Reason: Nausea) Qty: 90 1RF Patient Comments: "Several weeks" since last use. cholecalciferol (vitamin D3) [Vitamin D3] 25 mcg (1,000 unit) tablet 1,000 unit PO QDL Qty: 30 3RF ferrous sulfate [FeroSul] 325 mg (65 mg iron) tablet 325 mg PO BID Qty: 180 1RF Rx Instructions: Take with Vitamin C twice daily ascorbic acid (vitamin C) [Vitamin C] 500 mg tablet 500 mg PO BID Rx Instructions: Take with Ferrous Sulfate (Iron) twice daily (DME) Prodigy No Coding Strip See Rx Instructions .Route Qty: 100 5RF Patient Comments: Pt uses glucometer when wearable flash glucose sensor not on. Rx Instructions: Patient tests 3 times daily and as needed when symtomatic (DME) pen needle, diabetic [BD Ultra-Fine Mini Pen Needle] 31 gauge x 3/16" needle See Rx Instructions .Route Qty: 100 3RF Rx Instructions: As directed potassium chloride 10 mEq capsule, extended release 10 meq PO BID Qty: 180 3RF atorvastatin 10 mg tablet 10 mg PO HS Qty: 90 1RF insulin aspart U-100 [Novolog U-100 Insulin aspart] 100 unit/mL solution 7 unit subcut TID Qty: 30 3RF estradiol 0.01 % (0.1 mg/gram) cream 0.5 appful vaginal .COMPLEX Qty: 42.5 1RF Rx Instructions: 0.5 appful vaginally twice weekly; for 14 days (DME) FreeStyle Vicente 2 Sensor Kit See Rx Instructions .Route Qty: 1 3RF Patient Comments: Pt removed wearable glucose monitor 01/24/2023. Rx Instructions: As directed E11.9 (DME) FreeStyle Vicente 2 Sensor Kit See Rx Instructions .Route Qty: 1 2RF Rx Instructions: change q 14 days buspirone 15 mg tablet 15 mg PO TID Qty: 270 0RF methenamine hippurate 1 gram tablet 1 g PO Q12H 90 Days Qty: 180 3RF omeprazole 20 mg capsule,delayed release(DR/EC) 40 mg PO DAILY Rx Instructions: Pt states she take 20 mg a day AZO D-Mannose 500 mg capsule 500 mg PO DAILY Rx Instructions: Pt started this per Dr. Hudson- for good Urinary health. (DME) BD Insulin Syringe (half unit) 0.3 mL 31 gauge x 5/16" syringe See Rx Instructions .Route Qty: 300 3RF Rx Instructions: use to give insulin three times daily insulin glargine [Basaglar KwikPen U-100 Insulin] 100 unit/mL (3 mL) insulin pen 26 unit SUBCUT HS Qty: 15 3RF Gemtesa 75 mg tablet 75 mg PO DAILY cranberry fruit concentrate 125 mg tablet,disintegrating 250 mg PO DAILY nystatin-triamcinolone 100,000-0.1 unit/gram-% ointment 1 applic topical BID Qty: 30 1RF Patient Comments: Last used in gluteal fold. losartan 25 mg tablet 25 mg PO DAILY cholestyramine (with sugar) [Questran] 4 gram powder in packet 4 g PO BID PRN (Reason: Loose stools or diarrhea.) Rx Instructions: administer w/meal; avoid other meds within 1hr before or 4-6hr after dose amlodipine 5 mg tablet 5 mg PO BID Glucosamine Chondroitin 550-30-1 mg Capsule 1 cap PO QDL magnesium oxide 400 mg (241.3 mg magnesium) tablet 400 mg PO BID omega 2-gvs-bwl-fish oil [Fish Oil] 1,200 (144-216) mg Capsule 1 cap PO QDL calcium carbonate [Calcium 600] 600 mg calcium (1,500 mg) tablet 600 mg PO DAILY cyanocobalamin (vitamin B-12) [Vitamin B-12] 1,000 mcg Tablet 1,000 mcg PO DAILY carboxymethylcellulose sodium 1 % Drops, Liquid Gel 2 drp OPHTHALMIC (EYE) BID PRN (Reason: Dry Eye(S)) Probiotic 3 billion cell Capsule 3,000 mmu cells PO DAILY Rx Instructions: administer with a meal multivitamin Tablet 1 tab PO QDL Imbruvica 280 mg tablet 280 mg PO QAM Hold Instructions: Resume on 01/04/23. garlic 100 mg Tablet 100 mg PO DAILY metoprolol tartrate 25 mg Tablet 12.5 mg PO BID Qty: 30 0RF Discharge Orders: Discharge Order (Routine); Ordered 03/01/23 Ordered By: Mateo Maguire/Other Patient Handouts: Managing Type 2 Diabetes, Urinary Tract Infections in Women, Special Foot Care for Diabetes Admission Data Admit Date/Time: 02/28/23 08:06 Attending Provider: Mateo Live Admit Provider: Mateo Live Primary Care Provider: Keith Hutchinson Other Providers: Mateo Live ; [facility] Other Interventions: Discharge Summary Assessment (RN) Last Done: 03/01/23 16:34 Supervising Physician Co-Signing Physician Notes I personally examined the patient and verified all chavira points of history and exam, discussed case, and agree with decision making with Dr Aponte feeling better, dysuria improving. Daughter presentupdated her to the best my ability and to patient's and daughter satisfaction as well. Vitals noted, in general she is awake and alert pleasant no distress. HEENT normocephalic atraumatic mucous membranes moist. Breathing unlabored no accessory muscle use good effort. Skin shows no rashes no pallor or icterus. Neuro without focal deficits. Urine culture pinpoint growth at this point recurrent UTIno sepsis, dysuria improvingculture is likely to be nondiagnostic. Improved on ceftriaxone now cefdinirtolerating well, i.e. not allergicand has tolerated multiple dosessafe/stable for home. As far as secondary preventionsee discharge instructions given to the patient, but pelvic floor hygiene and possibly postprandial glycemic control may be of benefit, a lthough likely not to be fully preventative. Treat current UTI with another 5 days of cefdinir (7 days of Theragen cephalosporin in total)and of course if urine culture shows bacteria that warrants a change in treatment willwant to shift treatment accordingly Resident Activity Tracking Resident Involvement: Resident Care Provided Care Provided: Adult Hospital Medicine
--- NOTE | 2023-03-01 18:56 | Billing Data ---
Date of Service March 01, 2023 Coding Level of Care Code 89937 IN/OBS DISCH 30 MIN/LESS
[2023-03-01] MEDS ORDERED: CHOLESTYRAMINE LIGHT 4 GM PKT PO SCH (22:00)
== END 2023-03-01 18:37 | disposition home or self-care (01) ==
LOC: ED 05:09 → EDINP 08:06 → INTOOBSV 08:06 → 3E 11:22

== ENCOUNTER 2024-03-31 22:21 | Observation (INO) ==
[2024-03-31] MEDS: SODIUM CHLORIDE 0.9% 1,000 ML IV STA (23:07)
[2024-03-31 23:09] LABS: Appearance Urine Turbid (Clear); Bacteria Urine Automated 4+ (None Seen); Bilirubin Urine Negative (Negative); Blood Urine 2+ (Negative); Color Urine Yellow; Epithelial Cell Urine Auto 0-2 /hpf (0-2); Glucose Urine UA Trace (Negative); Ketones Urine Negative (Negative); Leukocyte Esterase Urine 3+ (Negative); Nitrite Urine Positive (Negative); Protein Urine 1+ (Negative); Specific Gravity Urine 1.015 (1.000-1.030); Urobilinogen Urine Negative (Negative); WBC Urine Automated >50 /hpf (0-5); pH Urine 5.5 (4.5-7.5)
[2024-03-31 23:25] LABS: Basophils # (auto) 0.02 K/uL (0.00-0.20); Basophils % (auto) 0.3 %; Hemoglobin 13.4 g/dl (12.0-16.0); Immature Granulocytes # (auto) 0.04 K/uL (0.01-0.20); Immature Granulocytes % (auto) 0.5 %; Lymphocytes # (auto) 1.27 K/uL (1.20-3.40); Lymphocytes % (auto) 16.2 %; Mean Corpuscular Hemoglobin 31.3 pg (25.0-34.0); Mean Corpuscular Hgb Conc 32.7 g/dL (32.0-36.0); Mean Corpuscular Volume 95.8 fL (80.0-100.0); Mean Platelet Volume 12.4 fL (9.4-12.4); Monocytes # (auto) 0.61 K/uL (0.11-0.59); Monocytes % (auto) 7.8 %; Neutrophils # (auto) 5.89 K/uL (1.40-6.50); Neutrophils % (auto) 75.2 %; Platelet Count 114 K/uL (130-400); RDW Coefficient of Variation 14.2 % (11.5-14.5); RDW Standard Deviation 49.9 fL (36.4-46.3); Red Blood Count 4.28 M/uL (4.20-5.40); White Blood Count 7.83 K/ul (4.8-10.8)
[2024-03-31] MEDS: ERTAPENEM SODIUM 10 ML IV STA (23:33)
[2024-04-01 00:05] LABS: Albumin Level 4.2 gm/dl (3.4-5.0); Anion Gap 10 (3-11); Bilirubin,Total 1.9 mg/dl (0.2-1.0); Calcium 9.4 mg/dl (8.6-10.3); Carbon Dioxide 25 mmol/L (21-32); Chloride 105 mmol/L (98-107); Potassium 3.9 mmol/L (3.5-5.1); Sodium 140 mmol/L (136-145)
[2024-04-01 00:11] LABS: Alanine Aminotransferase 15 U/L (7-52); Albumin Globulin Ratio 1.6 (0.9-2); Alkaline Phosphatase 79 U/L (34-104); Aspartate Aminotransferase 17 U/L (13-39); BUN Creatinine Ratio 21.8 (10-20); Blood Urea Nitrogen 22 mg/dl (6-23); Globulin 2.6 gm/dl (2.5-4.0); Glucose 186 mg/dl (70-99(Fasting)); Lipase 45 U/L (11-82); Total Protein 6.8 gm/dl (6.0-8.3)
[2024-04-01] MEDS ORDERED: MELATONIN 3 MG TAB PO PRN (00:53)
--- NOTE | 2024-04-01 01:05 | History & Physical Report ---
Date of Service April 01, 2024 Assessment & Plan (1) Infection due to ESBL-producing Escherichia coli: Plan: 83yo female with history of UTI, drug allergy to Sulfa, Nitrofurantoin, Cefazolin and Amoxicillin presenting with ESBL E. coli UTI. Patient is afebrile, HD stable and non-toxic on exam. Still with dysuria. UA suggestive of infection. -Observation to medical -Follow urine culture -Continue Ertapenem 1gm IV daily for treatment of ESBL E. coli UTI -Tylenol as needed for pain or fever Plan Chronic Medical Problems: Diabetes -Lantus 10u BID -ISS -Goal blood sugar 110 - 140 Hypertension - blood pressure elevated in the ER -Continue Amlodipine, Losartan and Metoprolol Hyperlipidemia - chronic, stable -Continue Atorvastatin Anxiety - chronic, stable -Continue Buspirone GERD - chronic, stable -Continue Protonix History of Present Illness Chief Complaint: UTI Primary Care Provider: Keith Hutchinson DO Lisa Payne is an 83yo female with history of GERD, CKD, HLP, recurrent UTI presenting with persistent UTI symptoms. Patient reports developing dysuria approximately 10 days ago. She was seen by her PCP and was prescribed Cipro x 7 days. She had persistent symptoms so was seen in Urgent Care on 03/28/24. She had a UA and was empirically prescribed additional Cipro for presumed UTI. This evening she received a phone call from the Urgent Care reporting that her urine culture revealed a resistant bacteria and that she would need to come to the hospital for IV antibiotics. Patient reports persistent dysuria otherwise denies suprapubic pain, denies flank pain. She does complaint of chills, fatigue, urinary incontinence and generalized weakness. IN the ER she is afebrile, non-toxic ER Course: NSS Ertapenem Allergies Allergy/AdvReac Type Severity Reaction Status Date / Time amoxicillin Allergy Severe Swelling Verified 03/16/24 14:47 of Lip/Tongue/Throat cefazolin Allergy Severe Hives Verified 03/16/24 14:47 egg Allergy Severe Gastrointestinal Verified 03/16/24 14:47 Upset nut - unspecified Allergy Severe Swelling Verified 03/16/24 14:47 of Lip/Tongue/Throat pineapple Allergy Severe Swelling Verified 03/16/24 14:47 of Lip/Tongue/Throat nitrofurantoin Allergy Mild tachycardia Verified 03/16/24 14:47 aspirin Allergy Unknown INCREASES Verified 03/16/24 14:47 BLEEDING acetaminophen [From Tylenol] AdvReac Severe liver bleed Verified 03/16/24 14:47 duloxetine AdvReac Severe SEVERE Verified 03/16/24 14:47 VOMITING caffeine AdvReac Intermediate racing Verified 03/16/24 14:47 heart lisinopril AdvReac Intermediate cough, Verified 03/16/24 14:47 white "stuff" all over lungs Sulfa (Sulfonamide AdvReac Intermediate Tinnitis Verified 03/16/24 14:47 Antibiotics) Home Medications Medication Instructions Recorded Confirmed Type amlodipine 5 mg tablet 5 mg PO BID 06/24/20 03/31/24 History glucosamine sulf dipot 1 cap PO QDL 06/24/20 03/31/24 History chlr,msm,chond 550 mg-C 30 mg-aleena 1 mg capsule (Glucosamine Chondroitin) magnesium oxide 400 mg (241.3 mg 400 mg PO BID 06/24/20 03/31/24 History magnesium) tablet omega 9-clq-efc-fish oil 1,200 mg 1 cap PO QDL 06/24/20 03/31/24 History (144 mg-216 mg) capsule (Fish Oil) ibrutinib 280 mg tablet (Imbruvica) 280 mg PO QAM 11/10/20 03/31/24 History multivitamin 1 tab PO QDL 11/10/20 03/31/24 History lancets 28 gauge (Prodigy Lancets) #300 ea 04/23/21 03/16/24 Rx losartan 25 mg tablet 25 mg PO HS 07/19/21 03/31/24 History metoprolol tartrate 25 mg tablet 12.5 mg (1/2 x 25 mg) PO BID #30 08/25/21 03/31/24 Rx tabs cholecalciferol (vitamin D3) 25 1,000 unit PO QDL #30 tabs 11/13/21 03/31/24 Rx mcg (1,000 unit) tablet (Vitamin D3) blood sugar diagnostic (Prodigy No #100 ea 04/18/22 03/16/24 Rx Coding strips) estradiol 0.01% (0.1 mg/gram) 0.5 appful vaginal .COMPLEX #42.5 10/09/22 03/31/24 Rx vaginal cream grams flash glucose sensor (FreeStyle #1 ea 11/06/22 03/16/24 Rx Vicente 2 Sensor kit) calcium carbonate (Calcium 600) 600 mg PO DAILY 11/29/22 03/31/24 History carboxymethylcellulose sodium 1 % 2 drp ophthalmic (eye) BID PRN Dry 12/17/22 03/31/24 History eye liquid gel drops Eye(S) cyanocobalamin (vitamin B-12) 1,000 mcg PO DAILY 12/17/22 03/31/24 History 1,000 mcg tablet (Vitamin B-12) lactobacillus combination no.4 3 3,000 mmu cells PO DAILY 12/17/22 03/31/24 History billion cell capsule (Probiotic) cholestyramine (with sugar) 4 gram 4 g PO BID PRN Loose stools or 01/14/23 03/31/24 History powder for susp in a packet diarrhea. (Questran) d-mannose 500 mg capsule (AZO 500 mg PO DAILY 01/28/23 03/31/24 History D-Mannose) insulin syr/ndl U100 half morena 0.3 #300 ea 02/10/23 03/16/24 Rx mL 31 gauge x 5/16" (BD Insulin Syringe Ultra-Fine (half unit)) electric lift chair #1 ea 07/10/23 03/16/24 Rx ascorbic acid (vitamin C) 500 mg 500 mg PO DAILY 07/18/23 03/31/24 History tablet (Vitamin C) cranberry fruit concentrate 125 mg 250 mg PO BID 07/18/23 03/31/24 History disintegrating tablet ondansetron HCl 4 mg tablet 4 mg PO Q8H PRN Nausea #90 tabs 07/21/23 03/31/24 Rx pen needle, diabetic 31 gauge x #100 ea 07/21/23 03/16/24 Rx 3/16" (BD Ultra-Fine Mini Pen Needle) melatonin 5 mg capsule 5 mg PO HS #30 caps 08/06/23 03/31/24 Rx potassium chloride 10 mEq 10 meq PO BID #180 caps 08/26/23 03/31/24 Rx capsule,extended release atorvastatin 10 mg tablet 10 mg PO HS #90 tabs 09/03/23 03/31/24 Rx nystatin-triamcinolone 100,000 1 applic topical BID PRN Skin 10/10/23 03/31/24 Rx unit/gram-0.1 % topical ointment Irritation #60 grams insulin glargine 100 unit/mL (3 28 unit (0.28 mL) subcut HS 3 10/21/23 03/31/24 Rx mL) subcutaneous pen (Lantus months #25.2 mL Solostar U-100 Insulin) omeprazole 20 mg capsule,delayed 20 mg PO DAILY #90 caps 01/19/24 03/31/24 Rx release buspirone 15 mg tablet 15 mg PO TID #270 tabs 03/16/24 03/31/24 Rx insulin aspart U-100 100 unit/mL 8 unit (0.08 mL) subcut TID #30 mL 03/16/24 03/31/24 Rx subcutaneous solution (Novolog U-100 Insulin aspart) ferrous sulfate 325 mg (65 mg 325 mg PO DAILY 03/31/24 03/31/24 History iron) tablet (FeroSul) Past Med/Surg History Problem List Infection due to ESBL-producing Escherichia coli (Acute) Hyponatremia CKD (chronic kidney disease), stage III Nausea Insomnia Chest pain Cellulitis of right forearm Right wrist pain Right hand pain Yeast vaginitis Urinary incontinence (Acute) Hyperlipidemia (Acute) Nausea & vomiting (Acute) Recurrent UTI (Chronic) History of fibula fracture (~12/24/21) left fibula Bilateral hydronephrosis Recurrent UTI Colon polyps Colitis Skin candidiasis Diarrhea Lumbar pain Glaucoma Situational anxiety Left arm numbness Orthostatic hypotension Thrombocytopenia (Acute) 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 (chronic lymphocytic leukemia) (Chronic) meterman current use of anticoagulant (Acute) History of cervical cancer Anxiety Peripheral neuropathy Chronic pancreatitis Paroxysmal A-fib Back pain (Acute) UTI (urinary tract infection) (Acute) Dysuria (Acute) Constipation Hypertension Diabetes Complicated UTI (urinary tract infection) (Acute) Urgency incontinence Bilateral hydronephrosis (Acute) Adverse drug reaction Medical History GERD (gastroesophageal reflux disease) Tick bite Bacteremia Recurrent UTI Gross hematuria Acute GI bleeding Bleeding per rectum Abdominal pain BRBPR (bright red blood per rectum) Nut allergy Acute pyelonephritis Cervical cancer Cataract Hypokalemia Diarrhea DVT prophylaxis Accidental acetaminophen overdose Guaiac positive stools Poisoning by acemetacin Acute GI bleeding Elevated bilirubin Transaminitis Abnormal EKG Surgical History S/P cataract surgery both eyes S/P appendectomy S/P cholecystectomy H/O: hysterectomy Family History Mother Heart disease Father Lung disease Prostate cancer Sister COVID Arthritis Uncle Myocardial infarction Heart disease Aunt Myocardial infarction Denies family history of Ovarian cancer Breast cancer Colorectal cancer Social History Smoking Status: Never smoker Second Hand Exposure: No; Do You Dip or Chew Tobacco: No; Tobacco Cessation Education Requested by Patient: No Hx Alcohol Use: No Hx Substance Use: No Preferred Language: Austrian Communication Ability: Effective Visual Impairment: Limited Hearing Ability: Normal Starch And Prosize Mixer Required: No Beliefs That Will Affect Care: None marital status: Current Living Situation: Spouse Current Living Situation Comment: Lives at home with current occupational status: retired current occupation: [email or web address] How many Children do You have: 1 Other Information That Helps Us Care for You: No other: 1 alive and 1 Feels Safe at Home: Yes Safety Concerns: Feels Safe At This Time Childhood Exposure to Second-Hand Smoke: No Diet: low carbohydrate and regular caffeine: No during the past year weight has: remained stable Dental Care, Regularly: No Physical Activity Frequency: Does not Exercise Seatbelt Use: always Sunscreen Use: No (hardly in sun d/t medicine ) Do you think of yourself as: straight/heterosexual Gender Identity: Female Assistive Devices: Glasses and Walker Review of Systems Review of Systems: All systems reviewed & are unremarkable except as noted in HPI & below Physical Exam Physical Exam: General: patient resting comfortably, NAD, non-toxic in appearance, AA&O x 4 Skin: warm, dry, intact, no rashes or lesions HEENT: NC/AT, PERRL, EOMI, anicteric sclera, conjunctiva without injection, external ear normal to inspection and nontender, nares patent, moist mucus membranes, dentition intact, no oropharyngeal lesions, neck supple, trachea midline, no LAD, no thyromegaly, no JVD Heart: +S1/S2, regular, no m/r/g Lungs: equal air entry bilaterally, no rales/rhonchi/wheezes Abd: +BS, soft, NT/ND, no masses/organomegaly/ascites, no CVA tenderness Ext: warm, 2+ pulses in UE/LE bilaterally, no clubbing/cyanosis or edema Neuro: nonfocal, patient AA&O x 4, speech intact, no facial droop, moving all extremities on command with equal strength 5/5 Results & Data Results & Data Vital Signs (Past 12 Hours) Vital Signs Temp Pulse Pulse Resp BP BP Pulse Ox 03/31/24 23:22 84 19 169/79 H 95 03/31/24 22:49 91 H 19 95 03/31/24 22:22 36.6 C 91 H 18 184/93 H 94 O2 Del Method 03/31/24 23:22 Room Air 03/31/24 22:49 Room Air 03/31/24 22:22 Room Air Laboratory Results Laboratory Results WBC 7.83 K/ul (4.8-10.8) 03/31/24 22:50 RBC 4.28 M/uL (4.20-5.40) 03/31/24 22:50 Hgb 13.4 g/dl (12.0-16.0) 03/31/24 22:50 Hct 41.0 % (37.0-47.0) 03/31/24 22:50 MCV 95.8 fL (80.0-100.0) 03/31/24 22:50 MCH 31.3 pg (25.0-34.0) 03/31/24 22:50 MCHC 32.7 g/dL (32.0-36.0) 03/31/24 22:50 RDW Std Deviation 49.9 fL (36.4-46.3) H 03/31/24 22:50 RDW Coeff of Matthew 14.2 % (11.5-14.5) 03/31/24 22:50 Plt Count 114 K/uL (130-400) L 03/31/24 22:50 MPV 12.4 fL (9.4-12.4) 03/31/24 22:50 Immature Gran % (Auto) 0.5 % 03/31/24 22:50 Neut % (Auto) 75.2 % 03/31/24 22:50 Lymph % (Auto) 16.2 % 03/31/24 22:50 [place] % (Auto) 7.8 % 03/31/24 22:50 Eos % (Auto) 0.0 % 03/31/24 22:50 Baso % (Auto) 0.3 % 03/31/24 22:50 Neut # (Auto) 5.89 K/uL (1.40-6.50) 03/31/24 22:50 Lymph # (Auto) 1.27 K/uL (1.20-3.40) 03/31/24 22:50 [place] # (Auto) 0.61 K/uL (0.11-0.59) H 03/31/24 22:50 Eos # (Auto) 0.00 K/uL (0.00-0.50) 03/31/24 22:50 Baso # (Auto) 0.02 K/uL (0.00-0.20) 03/31/24 22:50 Immature Gran # (Auto) 0.04 K/uL (0.01-0.20) 03/31/24 22:50 Sodium 140 mmol/L (136-145) 03/31/24 22:50 Potassium 3.9 mmol/L (3.5-5.1) 03/31/24 22:50 Chloride 105 mmol/L (98-107) 03/31/24 22:50 Carbon Dioxide 25 mmol/L (21-32) 03/31/24 22:50 Anion Gap 10 (3-11) 03/31/24 22:50 BUN 22 mg/dl (6-23) 03/31/24 22:50 Creatinine 1.01 mg/dl (0.6-1.2) 03/31/24 22:50 Est Cr Clr Drug Dosing Not Reportable 03/31/24 22:50 eGFR 55.93 03/31/24 22:50 BUN/Creatinine Ratio 21.8 (10-20) H 03/31/24 22:50 Glucose 186 mg/dl (70-99(Fasting)) H 03/31/24 22:50 Calcium 9.4 mg/dl (8.6-10.3) 03/31/24 22:50 Magnesium 1.8 mg/dl (1.7-2.4) 03/31/24 22:50 Total Bilirubin 1.9 mg/dl (0.2-1.0) H 03/31/24 22:50 AST 17 U/L (13-39) 03/31/24 22:50 ALT 15 U/L (7-52) 03/31/24 22:50 Alkaline Phosphatase 79 U/L (34-104) 03/31/24 22:50 Total Protein 6.8 gm/dl (6.0-8.3) 03/31/24 22:50 Albumin 4.2 gm/dl (3.4-5.0) 03/31/24 22:50 Globulin 2.6 gm/dl (2.5-4.0) 03/31/24 22:50 Albumin/Globulin Ratio 1.6 (0.9-2) 03/31/24 22:50 Lipase 45 U/L (11-82) 03/31/24 22:50 Urine Color Yellow 03/31/24 22:35 Urine Appearance Turbid (Clear) A 03/31/24 22:35 Urine pH 5.5 (4.5-7.5) 03/31/24 22:35 Ur Specific [place] 1.015 (1.000-1.030) 03/31/24 22:35 Urine Protein 1+ (Negative) H 03/31/24 22:35 Urine Glucose (UA) Trace (Negative) H 03/31/24 22:35 Urine Ketones Negative (Negative) 03/31/24:35 Urine Blood 2+ (Negative) H 03/31/24 22:35 Urine Nitrite Positive (Negative) A 03/31/24 22:35 Urine Bilirubin Negative (Negative) 03/31/24:35 Urine Urobilinogen Negative (Negative) 03/31/24 22:35 Ur Leukocyte Esterase 3+ (Negative) H 03/31/24 22:35 Urine WBC (Auto) >50 /hpf (0-5) H 03/31/24 22:35 Urine RBC (Auto) 3-5 /hpf (0-2) H 03/31/24 22:35 U Hyaline Cast (Auto) 3-5 /lpf (0-2) H 03/31/24 22:35 U Epithel Cells (Auto) 0-2 /hpf (0-2) 03/31/24 22:35 Urine Bacteria (Auto) 4+ (None Seen) H 03/31/24 22:35 PG Care Time/CCT Total # of Minutes Spent Total Time Spent with Patient: Total time spent is greater than 50% in coordination of care (as documented) at patient's floor/unit and/or counseling patient: Coding Level of Care Code 40527 INT INP/OBS CARE 2MIN Diagnoses Infection due to ESBL-producing Escherichia coli A49.8; Z16.12
[2024-04-01] MEDS: LOSARTAN POTASSIUM 25 MG TAB PO STA (01:19)
[2024-04-01] MEDS: METOPROLOL TARTRATE 25 MG TAB PO STA (01:19)
[2024-04-01] MEDS: busPIRone 15 MG TAB PO STA (01:19)
[2024-04-01] MEDS: ATORVASTATIN 10 MG TAB PO ONE (01:19)
[2024-04-01] MEDS: amLODIPine BESYLATE 5 MG TAB PO ONE (01:22)
--- NOTE | 2024-04-01 02:11 | Emergency Department Note ---
Impression & Plan Complicated UTI (urinary tract infection), Infection due to ESBL-producing Escherichia coli ED Provider Note NAME: ILIANA CALDWELL AGE: 83 SEX: Female INFORMANT: Patient ED PROVIDER(S): Tim Hanks MD CHIEF COMPLAINT: Urinary symptoms PLAN: Disposition: Admitted Outpatient prescription management: none Referral: None MEDICAL DECISION MAKING: Patient was directed to the emergency department because of an abnormal culture. Clinically she was doing well. Physical examination revealed no signs of sepsis. She had an IV established. I did obtain her prior outpatient culture result. Unfortunate the patient has not E. coli UTI that is ESBL. She is also limited due to multiple drug allergies. Discussed the case with the hospital pharmacist and even with her prior allergies ertapenem was recommended as a drug of choice. This was ordered. There are no good oral options for the patient and further management in the hospital and coordination of additional IV antibiotics will be necessary. Consultation was made with Dr. Mcneill of the [facility] service. Patient was evaluated in the ER for further management. Care/management discussed with: manager intranet, pharmacist Level of care consideration(s): After review of the information above and other included data, I feel the patient requires escalation of care to admission Triage Nursing notes: reviewed and agree them. Vital Signs: reviewed and remarkable for hypertension Additional History obtained from: none Chronic Medical/Social Conditions affecting care: none Prior/ Outside/ External records reviewed: Urine culture result reviewed from the outpatient clinic. ESBL E. coli isolated greater than 100,000 CFU. Differential Diagnosis: Complicated UTI, cystitis, pyelonephritis, sepsis, as well as others were entertained. Diagnostics, independently interpreted by me: ECG: none Cardiac Monitoring: Cardiac monitoring ordered by me: The patient was placed on continuous cardiac monitoring and observed. It revealed a normal sinus rhythm at 84 beats per minute without ectopy or evidence of dysrhythmia. Medical decision rules: none Imaging studies: Deferred HPI: 83 year old Female arrives for evaluation of urinary symptoms. This started last week and is persisting. The patient also notes the following associated symptoms, dysuria and urgency. Patient was seen and her urine culture was done. Urine culture result was concerning for ESBL E. coli UTI and patient was directed to the ER for IV antibiotics.Pt denies LOC, headache, fevers, chills, diaphoresis, visual changes, neck pain, chest pain, breathing difficulties, nausea, vomiting, abdominal pain, back pain, melena, hematochezia, urinary symptoms, numbness, weakness, lymphadenopathy, rash, or other complaints. PAST MEDICAL HISTORY: See Below, UTI, A-fib PAST SURGICAL HISTORY: See Below, SOCIAL HISTORY: See Below, HOME MEDICATIONS: See Below ALLERGIES: See Below VITALS: See Below PHYSICAL EXAMINATION: GENERAL: Awake, alert, well-appearing, in no distress HENT: Normocephalic, atraumatic. Oropharynx unremarkable. EYES: Normal conjunctiva. Sclera non-icteric. NECK: Inspection normal. Non-tender. Supple. No nuchal rigidity. FROM. No masses. RESPIRATORY: Clear to auscultation. No wheezes. No rales. Normal respiratory effort. CARDIAC: Normal rate. Normal rhythm. No murmurs. No rubs. Extremities warm and well perfused. Pulses equal. No JVD. GI: Soft, non-distended. No tenderness to palpation. No rebound or guarding. No masses. MUSCULOSKELETAL: Atraumatic. Chest examination reveals no tenderness. The back is symmetrical on inspection without obvious abnormality. There is no CVA tenderness to palpation. No joint edema. LOWER EXTREMITIES: Calves are equal size bilaterally and non-tender. No edema. No discoloration. NEURO: Normal sensorium. No sensory or motor deficits noted. SKIN: No rash or jaundice noted. PROCEDURES: none CRITICAL CARE: none OBSERVATION NOTE: none Past Med/Surg History Problem List (Updated 04/01/24 @ 02:10 by Tim Hanks MD) Infection due to ESBL-producing Escherichia coli (Acute) Hyponatremia CKD (chronic kidney disease), stage III Nausea Insomnia Chest pain Cellulitis of right forearm Right wrist pain Right hand pain Yeast vaginitis Urinary incontinence (Acute) Hyperlipidemia (Acute) Nausea & vomiting (Acute) Recurrent UTI (Chronic) History of fibula fracture (~12/24/21) left fibula Bilateral hydronephrosis Recurrent UTI Colon polyps Colitis Skin candidiasis Diarrhea Lumbar pain Glaucoma Situational anxiety Left arm numbness Orthostatic hypotension Thrombocytopenia (Acute) 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 (chronic lymphocytic leukemia) (Chronic) half-way current use of anticoagulant (Acute) History of cervical cancer Anxiety Peripheral neuropathy Chronic pancreatitis Paroxysmal A-fib Back pain (Acute) UTI (urinary tract infection) (Acute) Dysuria (Acute) Constipation Hypertension Diabetes Complicated UTI (urinary tract infection) (Acute) Urgency incontinence Bilateral hydronephrosis (Acute) Adverse drug reaction Medical History GERD (gastroesophageal reflux disease) Tick bite Bacteremia Recurrent UTI Glaucoma Gross hematuria Acute GI bleeding Bleeding per rectum Abdominal pain BRBPR (bright red blood per rectum) Nut allergy Acute pyelonephritis Paroxysmal A-fib Chronic pancreatitis Peripheral neuropathy Anxiety History of cervical cancer Cervical cancer Cataract Hypokalemia Diarrhea Hypertension Diabetes DVT prophylaxis 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 Guaiac positive stools Poisoning by acemetacin Acute GI bleeding Elevated bilirubin Transaminitis Urgency incontinence Recurrent UTI Bilateral hydronephrosis Metastatic cancer to intra-abdominal lymph nodes CLL (chronic lymphocytic leukemia) Abnormal EKG Surgical History S/P cataract surgery S/P appendectomy S/P cholecystectomy H/O: hysterectomy Family History Mother Heart disease Father Lung disease Prostate cancer Sister COVID Arthritis Uncle Myocardial infarction Heart disease Aunt Myocardial infarction Denies family history of Ovarian cancer Breast cancer Colorectal cancer Social History Smoking Status: Never smoker Second Hand Exposure: No; Do You Dip or Chew Tobacco: No; Hx Alcohol Use: No Hx Substance Use: No Preferred Language: Turkmen Communication Ability: Effective Visual Impairment: Limited Hearing Ability: Normal 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 Beliefs That Will Affect Care: None marital status: Current Living Situation: Spouse Current Living Situation Comment: Lives at home with current occupational status: retired current occupation: [employer] How many Children do You have: 1 other: 1 alive and 1 Feels Safe at Home: Yes Childhood Exposure to Second-Hand Smoke: No Diet: low carbohydrate and regular caffeine: No during the past year weight has: remained stable Dental Care, Regularly: No Physical Activity Frequency: Does not Exercise Seatbelt Use: always Sunscreen Use: No (hardly in sun d/t medicine ) Do you think of yourself as: straight/heterosexual Gender Identity: Female Assistive Devices: Glasses, Raised Toilet Seat, Special Shoe and Walker Allergies Allergies Allergy/AdvReac Type Severity Reaction Status Date / Time amoxicillin Allergy Severe Swelling Verified 03/16/24 14:47 of Lip/Tongue/Throat cefazolin Allergy Severe Hives Verified 03/16/24 14:47 egg Allergy Severe Gastrointestinal Verified 03/16/24 14:47 Upset nut - unspecified Allergy Severe Swelling Verified 03/16/24 14:47 of Lip/Tongue/Throat pineapple Allergy Severe Swelling Verified 03/16/24 14:47 of Lip/Tongue/Throat nitrofurantoin Allergy Mild tachycardia Verified 03/16/24 14:47 aspirin Allergy Unknown INCREASES Verified 03/16/24 14:47 BLEEDING acetaminophen [From Tylenol] AdvReac Severe liver bleed Verified 03/16/24 14:47 duloxetine AdvReac Severe SEVERE Verified 03/16/24 14:47 VOMITING caffeine AdvReac Intermediate racing Verified 03/16/24 14:47 heart lisinopril AdvReac Intermediate cough, Verified 03/16/24 14:47 white "stuff" all over lungs Sulfa (Sulfonamide AdvReac Intermediate Tinnitis Verified 03/16/24 14:47 Antibiotics) Home Meds Home Medications Medication Instructions Recorded Confirmed amlodipine 5 mg tablet 5 mg PO BID 06/24/20 03/31/24 glucosamine sulf dipot 1 cap PO QDL 06/24/20 03/31/24 chlr,msm,chond 550 mg-C 30 mg-aleena 1 mg capsule (Glucosamine Chondroitin) magnesium oxide 400 mg (241.3 mg 400 mg PO BID 06/24/20 03/31/24 magnesium) tablet omega 8-bas-diq-fish oil 1,200 mg 1 cap PO QDL 06/24/20 03/31/24 (144 mg-216 mg) capsule (Fish Oil) ibrutinib 280 mg tablet (Imbruvica) 280 mg PO QAM 11/10/20 03/31/24 multivitamin 1 tab PO QDL 11/10/20 03/31/24 losartan 25 mg tablet 25 mg PO HS 07/19/21 03/31/24 calcium carbonate (Calcium 600) 600 mg PO DAILY 11/29/22 03/31/24 carboxymethylcellulose sodium 1 % 2 drp ophthalmic (eye) BID PRN Dry 12/17/22 03/31/24 eye liquid gel drops Eye(S) cyanocobalamin (vitamin B-12) 1,000 mcg PO DAILY 12/17/22 03/31/24 1,000 mcg tablet (Vitamin B-12) lactobacillus combination no.4 3 3,000 mmu cells PO DAILY 12/17/22 03/31/24 billion cell capsule (Probiotic) cholestyramine (with sugar) 4 gram 4 g PO BID PRN Loose stools or 01/14/23 03/31/24 powder for susp in a packet diarrhea. (Questran) d-mannose 500 mg capsule (AZO 500 mg PO DAILY 01/28/23 03/31/24 D-Mannose) ascorbic acid (vitamin C) 500 mg 500 mg PO DAILY 07/18/23 03/31/24 tablet (Vitamin C) cranberry fruit concentrate 125 mg 250 mg PO BID 07/18/23 03/31/24 disintegrating tablet ferrous sulfate 325 mg (65 mg 325 mg PO DAILY 03/31/24 03/31/24 iron) tablet (FeroSul) Previous Rx's Medication Instructions Recorded lancets 28 gauge (Snapd App Lancets) #300 ea 04/23/21 metoprolol tartrate 25 mg tablet 12.5 mg (1/2 x 25 mg) PO BID #30 08/25/21 tabs cholecalciferol (vitamin D3) 25 1,000 unit PO QDL #30 tabs 11/13/21 mcg (1,000 unit) tablet (Vitamin D3) blood sugar diagnostic (Prodigy No #100 ea 04/18/22 Coding strips) estradiol 0.01% (0.1 mg/gram) 0.5 appful vaginal .COMPLEX #42.5 10/09/22 vaginal cream grams flash glucose sensor (FreeStyle #1 ea 11/06/22 Vicente 2 Sensor kit) insulin syr/ndl U100 half morena 0.3 #300 ea 02/10/23 mL 31 gauge x 5/16" (BD Insulin Syringe Ultra-Fine (half unit)) electric lift chair #1 ea 07/10/23 ondansetron HCl 4 mg tablet 4 mg PO Q8H PRN Nausea #90 tabs 07/21/23 pen needle, diabetic 31 gauge x #100 ea 07/21/23 3/16" (BD Ultra-Fine Mini Pen Needle) melatonin 5 mg capsule 5 mg PO HS #30 caps 08/06/23 potassium chloride 10 mEq 10 meq PO BID #180 caps 08/26/23 capsule,extended release atorvastatin 10 mg tablet 10 mg PO HS #90 tabs 09/03/23 nystatin-triamcinolone 100,000 1 applic topical BID PRN Skin 10/10/23 unit/gram-0.1 % topical ointment Irritation #60 grams insulin glargine 100 unit/mL (3 28 unit (0.28 mL) subcut HS 3 10/21/23 mL) subcutaneous pen (Lantus months #25.2 mL Solostar U-100 Insulin) omeprazole 20 mg capsule,delayed 20 mg PO DAILY #90 caps 01/19/24 release buspirone 15 mg tablet 15 mg PO TID #270 tabs 03/16/24 insulin aspart U-100 100 unit/mL 8 unit (0.08 mL) subcut TID #30 mL 03/16/24 subcutaneous solution (Novolog U-100 Insulin aspart) Results & Data (ED) Vital Signs Vital Signs - 24 hr 03/31/24 22:22 03/31/24 22:49 03/31/24 23:22 Temperature 36.6 C Temperature Source Temporal Artery Scan Pulse Rate 91 H 91 H Pulse Rate [Apical] 84 Pulse Rhythm [Apical] Regular Pulse Strength [Apical] Normal Respiratory Rate 18 19 19 Respiratory Effort / Characteristics Non-Labored Respiratory Depth Normal Respiratory Pattern Regular Blood Pressure 184/93 H Blood Pressure [Left Arm] 169/79 H Blood Pressure Mean 123 Blood Pressure Mean [Left Arm] 109 Blood Pressure Position [Left Arm] Sitting Pulse Oximetry 94 95 95 Oxygen Delivery Method Room Air Room Air Room Air Sepsis Recent Fever Within 48 Hours No Sepsis New/Unexplained Change in Mental Status N/A Sepsis Action Taken by Nursing No Action Required Laboratory Data 03/31/24 22:50 03/31/24 22:50 Lab Results 03/31/24 03/31/24 Range/Units 22:35 22:50 WBC 7.83 (4.8-10.8) K/ul RBC 4.28 (4.20-5.40) M/uL Hgb 13.4 (12.0-16.0) g/dl Hct 41.0 (37.0-47.0) % MCV 95.8 (80.0-100.0) fL MCH 31.3 (25.0-34.0) pg MCHC 32.7 (32.0-36.0) g/dL RDW Std Deviation 49.9 H (36.4-46.3) fL RDW Coeff of Matthew 14.2 (11.5-14.5) % Plt Count 114 L (130-400) K/uL MPV 12.4 (9.4-12.4) fL Immature Gran % (Auto) 0.5 % Neut % (Auto) 75.2 % Lymph % (Auto) 16.2 % Mayes % (Auto) 7.8 % Eos % (Auto) 0.0 % Baso % (Auto) 0.3 % Neut # (Auto) 5.89 (1.40-6.50) K/uL Lymph # (Auto) 1.27 (1.20-3.40) K/uL Mayes # (Auto) 0.61 H (0.11-0.59) K/uL Eos # (Auto) 0.00 (0.00-0.50) K/uL Baso # (Auto) 0.02 (0.00-0.20) K/uL Immature Gran # (Auto) 0.04 (0.01-0.20) K/uL Sodium 140 (136-145) mmol/L Potassium 3.9 (3.5-5.1) mmol/L Chloride 105 (98-107) mmol/L Carbon Dioxide 25 (21-32) mmol/L Anion Gap 10 (3-11) BUN 22 (6-23) mg/dl Creatinine 1.01 (0.6-1.2) mg/dl Est Cr Clr Drug Dosing Not Reportable eGFR 55.93 BUN/Creatinine Ratio 21.8 H (10-20) Glucose 186 H (70-99(Fasting)) mg/dl Calcium 9.4 (8.6-10.3) mg/dl Total Bilirubin 1.9 H (0.2-1.0) mg/dl AST 17 (13-39) U/L ALT 15 (7-52) U/L Alkaline Phosphatase 79 (34-104) U/L Total Protein 6.8 (6.0-8.3) gm/dl Albumin 4.2 (3.4-5.0) gm/dl Globulin 2.6 (2.5-4.0) gm/dl Albumin/Globulin Ratio 1.6 (0.9-2) Lipase 45 (11-82) U/L Urine Color Yellow Urine Appearance Turbid A (Clear) Urine pH 5.5 (4.5-7.5) Ur Specific [place] 1.015 (1.000-1.030) Urine Protein 1+ H (Negative) Urine Glucose (UA) Trace H (Negative) Urine Ketones Negative (Negative) Urine Blood 2+ H (Negative) Urine Nitrite Positive A (Negative) Urine Bilirubin Negative (Negative) Urine Urobilinogen Negative (Negative) Ur Leukocyte Esterase 3+ H (Negative) Urine WBC (Auto) >50 H (0-5) /hpf Urine RBC (Auto) 3-5 H (0-2) /hpf U Hyaline Cast (Auto) 3-5 H (0-2) /lpf U Epithel Cells (Auto) 0-2 (0-2) /hpf Urine Bacteria (Auto) 4+ H (None Seen) Administered Medications Sodium Chloride (Nss) 1,000 mls @ 125 mls/hr IV .Q8H STA Stop: 04/01/24 06:48 Last Admin: 03/31/24 23:07 Dose: 125 mls/hr Documented By: MAHESH Discontinued Medications Amlodipine Besylate (Amlodipine Besylate 5 Mg Tab) 5 mg PO NOW ONE Stop: 04/01/24 00:54 Last Admin: 04/01/24 01:22 Dose: 5 mg Documented By: MAHESH Atorvastatin Calcium (Atorvastatin 10 Mg Tab) 10 mg PO NOW ONE Stop: 04/01/24 00:54 Last Admin: 04/01/24 01:19 Dose: 10 mg Documented By: MAHESH Buspirone HCl (Buspirone 15 Mg Tab) 15 mg PO NOW STA Stop: 04/01/24 00:54 Last Admin: 04/01/24 01:19 Dose: 15 mg Documented By: MAHESH Ertapenem (Invanz) 10 mls @ 2 mls/min IV NOW STA Stop: 03/31/24 23:18 Last Admin: 03/31/24 23:33 Dose: 2 mls/min Documented By: MAHESH Losartan Potassium (Losartan Potassium 25 Mg Tab) 25 mg PO NOW STA Stop: 04/01/24 00:54 Last Admin: 04/01/24 01:19 Dose: 25 mg Documented By: MAHESH Metoprolol Tartrate (Metoprolol Tartrate 25 Mg Tab) 12.5 mg PO NOW STA Stop: 04/01/24 00:54 Last Admin: 04/01/24 01:19 Dose: 12.5 mg Documented By: AAW Discharge Plan Visit Data Chief Complaint: Urinary Symptoms Stated 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: 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 Rx Instructions: Patient tests 3 times daily and as needed when symtomatic estradiol 0.01 % (0.1 mg/gram) cream 0.5 appful vaginal .COMPLEX Qty: 42.5 1RF Rx Instructions: 0.5 appful vaginally twice weekly; for 14 days (DME) FreeStyle Vicente 2 Sensor Kit See Rx Instructions .Route Qty: 1 3RF Patient Comments: Pt removed wearable glucose monitor 01/24/2023. Rx Instructions: As directed E11.9 AZO D-Mannose 500 mg capsule 500 mg PO DAILY Rx Instructions: Pt started this per Dr. Hudson- for good Urinary health. (DME) BD Insulin Syringe (half unit) 0.3 mL 31 gauge x 5/16" syringe See Rx Instructions .Route Qty: 300 3RF Rx Instructions: use to give insulin three times daily (DME) electric lift chair See Rx Instructions .Route .MEDSUPPLY Qty: 1 0RF Rx Instructions: As directed ascorbic acid (vitamin C) [Vitamin C] 500 mg tablet 500 mg PO DAILY ondansetron HCl 4 mg tablet 4 mg PO Q8H PRN (Reason: Nausea) Qty: 90 1RF Patient Comments: "Several weeks" since last use. (DME) pen needle, diabetic [BD Ultra-Fine Mini Pen Needle] 31 gauge x 3/16" needle See Rx Instructions .Route Qty: 100 3RF Rx Instructions: As directed potassium chloride 10 mEq capsule, extended release 10 meq PO BID Qty: 180 3RF atorvastatin 10 mg tablet 10 mg PO HS Qty: 90 1RF insulin glargine [Lantus Solostar U-100 Insulin] 100 unit/mL (3 mL) insulin pen 28 unit subcut HS 90 Days Qty: 25.2 2RF omeprazole 20 mg capsule,delayed release(DR/EC) 20 mg PO DAILY Qty: 90 1RF Rx Instructions: Pt states she take 20 mg a day cranberry fruit concentrate 125 mg tablet,disintegrating 250 mg PO BID nystatin-triamcinolone 100,000-0.1 unit/gram-% ointment 1 applic topical BID PRN (Reason: Skin Irritation) Qty: 60 0RF losartan 25 mg tablet 25 mg PO HS cholestyramine (with sugar) [Questran] 4 gram powder in packet 4 g PO BID PRN (Reason: Loose stools or diarrhea.) Rx Instructions: administer w/meal; avoid other meds within 1hr before or 4-6hr after dose buspirone 15 mg tablet 15 mg PO TID Qty: 270 0RF insulin aspart U-100 [Novolog U-100 Insulin aspart] 100 unit/mL solution 8 unit subcut TID Qty: 30 3RF melatonin 5 mg capsule 5 mg PO HS Qty: 30 5RF amlodipine 5 mg tablet 5 mg PO BID Glucosamine Chondroitin 550-30-1 mg Capsule 1 cap PO QDL magnesium oxide 400 mg (241.3 mg magnesium) tablet 400 mg PO BID omega 0-spr-pyk-fish oil [Fish Oil] 1,200 (144-216) mg Capsule 1 cap PO QDL calcium carbonate [Calcium 600] 600 mg calcium (1,500 mg) tablet 600 mg PO DAILY cyanocobalamin (vitamin B-12) [Vitamin B-12] 1,000 mcg Tablet 1,000 mcg PO DAILY carboxymethylcellulose sodium 1 % Drops, Liquid Gel 2 drp OPHTHALMIC (EYE) BID PRN (Reason: Dry Eye(S)) Probiotic 3 billion cell Capsule 3,000 mmu cells PO DAILY Rx Instructions: administer with a meal multivitamin Tablet 1 tab PO QDL Imbruvica 280 mg tablet 280 mg PO QAM Hold Instructions: Resume on 01/04/23. Rx Instructions: PT BROUGHT OWN MED IN WITH HER, [facility] "DOESN'T CARRY THIS MED", PER PT. metoprolol tartrate 25 mg Tablet 12.5 mg PO BID Qty: 30 0RF ferrous sulfate [FeroSul] 325 mg (65 mg iron) tablet 325 mg PO DAILY Rx Instructions: Take with Vitamin C twice daily Referrals Referrals: Keith Hutchinson DO [Primary Care Provider] -
[2024-04-01] MEDS ORDERED: ACETAMINOPHEN 325 MG TAB PO PRN (02:42)
[2024-04-01] MEDS ORDERED: CARBOHYDRATES FOR HYPOGLYCEMIA PO PRN (02:42)
[2024-04-01] MEDS ORDERED: DEXTROSE 50% 50 ML SYRINGE IV PRN (02:42)
[2024-04-01] MEDS ORDERED: GLUCOSE 10 TAB/TUBE PO PRN (02:42)
[2024-04-01] MEDS ORDERED: GLUCOSE 40% GEL 15 GM TUBE PO PRN (02:42)
[2024-04-01] MEDS ORDERED: GLUCAGON FOR INJ 1 MG VIAL SQ PRN (02:42)
[2024-04-01 03:16] LABS: Magnesium 1.8 mg/dl (1.7-2.4)
[2024-04-01] MEDS: ONDANSETRON INJ 2 MG/ML 2 ML VIAL IV PRN (04:47)
[2024-04-01] MEDS: INSULIN ASPART PER UNIT CHARGE SC SCH (08:27)
[2024-04-01] MEDS: LANTUS PER UNIT CHARGE SQ SCH (08:28)
[2024-04-01] MEDS: amLODIPine BESYLATE 5 MG TAB PO SCH (08:28)
[2024-04-01] MEDS: METOPROLOL TARTRATE 25 MG TAB PO SCH (08:28)
[2024-04-01] MEDS: busPIRone 15 MG TAB PO SCH (08:28)
[2024-04-01] MEDS: PANTOprazole 40 MG TAB PO SCH (08:29)
--- OUTSIDE RECORDS SUMMARY | 2024-04-01 10:37 | External Medical Summary | Summary of Care ---
Author Name Unknown Organization [facility] Address [address] [place] [address] Phone [phone] Care Team Providers Care [employer] Estates Attorney Name Role Phone Evangelina, Juan M Primary Care Provider [phone] Reason for Visit * Reason Onset Date Comments Med Request 02/06/2024 Encounter Details Date Type Department Care Team (Late st Contact Info) Description 02/06/2024 Telephone Infectious Disease, [place] [address] [place] [address] Kvng Gresham II, DO [address] [place] [address] Med Request Allergies Active Allergy Reactions Criticality Noted Date Comments Amoxicillin Edema face/lips/tongue High 04/25/2022 Other reaction(s): Swelling of Lip/Tongue/Throat Aspirin Bleeding High 11/23/2016 Rectal bleeding Caffeine Tachycardia Medium 05/25/2020 Cefazolin Hives High 12/17/2022 Other reaction(s): Hives Duloxetine Nausea/vomiting High 04/25/2022 Other reaction(s): SEVERE VOMITING Egg-Derived Products Edema Other High 08/25/2022 Lisinopril Cough Medium 11/23/2016 Put white stuff all over my lungs Metformin Diarrhea Medium 05/25/2020 Nitrofurantoin Diarrhea,Nausea/vomi ting Medium 11/23/2016 Other reaction(s): tachycardia Other Allergy (See Comments) Edema face/lips/tongue High 01/16/2023 Other Reaction(s): Swelling of Lip/Tongue/Throat Ridgeway nuts Pineapple Edema face/lips/tongue High 04/25/2022 Other reaction(s): Swelling of Lip/Tongue/Throat Sulfa Antibiotics Nausea/vomiting Medium 11/23/2016 documented as of this encounter (statuses as of 03/25/2024) Medications Medication Sig Dispensed Refills Start Date End Date Status Misc Natural Products (GLUCOSAMINE CHOND MSM FORMULA) TABS Take by mouth. Glucosamine chondroitin 550-30-1mg 1 cap orally once daily with lunch Active Cranberry 125 MG TABS Take 1 Tablet by mouth in the morning and 1 Tablet before bedtime. Active Multiple Vitamins-Minerals (MULTI FOR HER 50+) TABS Take by mouth. Active insulin aspart (NOVOLOG) 100 UNIT/ML injectionIndication s:inject 6 units if over 150 Inject 7 Units under the skin in the morning and 7 Units at noon and 7 Units before bedtime. Active amLODIPine (NORVASC) 5 MG Tablet Take 1 Tablet by mouth in the morning and 1 Tablet before bedtime. Active Calcium Citrate-Vitamin D 315-5 MG-MCG Oral Tablet Take 1 Tablet by mouth in the morning. Active Estrogens, Conjugated 0.625 MG/GM Vaginal Cream Administer 0.5 g into the vagina in the morning. Active PRODIGY NO CODING BLOOD GLUC STRP use before meals and at bedtime to check bloodsugar dx-e11.65 10 03/25/2019 Active PRODIGY TWIST TOP LANCETS 28G MISC USE BEFORE MEALS AND AT BEDTIME TO CHECK BLOODSUGAR 10 03/25/2019 Active metoprolol tartrate (LOPRESSOR) 25 MG Tablet Take 0.5 Tablets by mouth in the morning and 0.5 Tablets before bedtime. 0 03/17/2019 Active Insulin Glargine 100 UNIT/ML Subcutaneous Solution Pen-injector Inject 26 Units under the skin at bedtime. Active Atorvastatin Calcium 10 MG Oral Tablet (LIPITOR) Take 1 Tablet by mouth every night at bedtime. 04/21/2020 Active BD Insulin Syringe U/F 31G X 5/16" 0.3 ML Use as directed. 04/03/2020 Active Magnesium Oxide 400 (241.3 Mg) MG Oral Tablet Take 400 mg by mouth in the morning and 400 mg before bedtime. 03/18/2020 Active Omeprazole 20 MG Oral Capsule Delayed Release Take 1 Cap by mouth daily. 30 Cap 06/23/2020 Active Ascorbic Acid 500 MG Oral Tablet Take 1 Tablet by mouth in the morning and 1 Tablet before bedtime. Active Iron 325 (65 Fe) MG Oral Tablet Take 1 Tablet by mouth in the morning and 1 Tablet before bedtime. Active Potassium Chloride ER 10 MEQ Oral Capsule Extended Release Take 1 Capsule by mouth in the morning and 1 Capsule before bedtime. Active busPIRone HCl 15 MG Oral Tablet Take 1 Tablet by mouth in the morning and 1 Tablet at noon and 1 Tablet before bedtime. 09/02/2020 Active Ondansetron 8 MG Oral Tablet Disintegrating (Zofran) Place 1 Tablet on tongue every 8 hours as needed for Nausea. dissolve on tongue for nausea or vomiting. 15 Tablet 08/25/2022 Active Vitamin D (Cholecalciferol) 25 MCG (1000 UT) Oral Tablet Take 1 Tablet by mouth in the morning. Active Losartan Potassium 25 MG Oral Tablet (Cozaar) Take 1 Tablet by mouth in the morning. Active Cyanocobalamin 1000 MCG Oral Tablet (Cyanocobalamin) Take 1 Tablet by mouth in the morning. 12/17/2022 Active Imbruvica 280 MG Oral Tablet daily. Active D-Mannose 500 MG Oral Capsule Take 500 mg by mouth in the morning. 03/19/2023 Active Fish Oil 500 MG Oral Capsule Take 2 Capsules by mouth in the morning. 03/19/2023 Active Cetirizine HCl 10 MG Oral Tablet (ZyrTEC) Take 1 Tablet by mouth daily as needed for Rhinitis. 03/19/2023 Active Cholestyramine Light 4 GM Oral Packet (Prevalite) Take 1 Packet by mouth 2 times a day as needed for Diarrhea. 03/19/2023 Active Melatonin 5 MG Oral Capsule 1 Capsule at bedtime. 08/06/2023 Active Vitron-C 65-125 MG Oral Tablet (Iron-Vitamin C 65-125 mg per tab) Take 1 Tablet by mouth in the morning. Active Fosfomycin Tromethamine 3 GM Oral Packet (Monurol)Indication s:Urinary tract infection without hematuria, site unspecified Take 3 g by mouth once for 1 dose. 1 Packet 03/25/2024 4 Active Fosfomycin Tromethamine 3 GM Oral Packet (Monurol) Take 3 g by mouth once for 1 dose. 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 ESBL (extended spectrum beta -lactamase) producing bacteria infection 07/13/2023 Acute cystitis without hematuria 07/13/2023 Yeast vaginitis 03/19/2023 Bilateral hydronephrosis 01/12/2023 Type 2 diabetes mellitus wit h stage 3a chronic kidney disease, with long-term current use of insulin 01/11/2023 Anxiety 01/11/2023 Chronic pancreatitis 01/11/2023 Colon polyps 01/11/2023 Cyst of pancreas 01/11/2023 Esophageal reflux 01/11/2023 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 coli infection 11/25/2022 Overview: Urine CHRIST (acute kidney injury) 11/25/2022 Bladder wall thickening 08/01/2020 Urinary incontinence without sensory awareness 0 08/01/2020 Idiopathic chronic gout of multiple sites withou t tophus 04/21/2020 Paroxysmal atrial fibrillation 04/21/2020 Vitamin D deficiency 04/21/2020 Kidney disease, chronic, stage III (GFR 30-59 ml /min) 05/10/2019 Overview: Per CKD protocol Obstructive uropathy 09/16/2017 CLL (chronic lymphocytic leukemia) 11/03/2015 Essential hypertension 08/22/2015 Type 2 diabetes mellitus with diabetic neuropath y 08/22/2015 documented as of this encounter (statuses as of 03/25/2024) Resolved Problems Problem Noted Date Diagnosed Date Resolved Date Acute GI bleeding 01/11/2023 01/11/2023 Urge incontinence of urine 01/11/2023 0 01/11/2023 Postviral fatigue syndrome 08/01/2020 0 01/11/2023 Acute pyelonephritis 09/16/2017 023 Dysuria 06/13/2017 01/11/2023 Complicated UTI (urinary tract infection) 06/13/2017 04/09/2023 documented as of this encounter (statuses as of 03/25/2024) Immunizations Name Administration Dates Next Due Seasonal Influenza, Quadrivalent Hd (Fluzone Hd) 04/09/2023 documented as of this encounter Social History Tobacco Use Types Packs/Day Years Used Date Smoking Tobacco: Never Smokeless Tobacco: Never Alcohol Use Standard Drinks/Week Comments No 0 (1 standard drink = 0.6 oz pur e alcohol) Personal Safety Answer Date Recorded Do you feel unsafe or have concerns for your saf ety? No 07/13/2023 Do you have concerns for you r family's safety? (Household - for ages 0-17 years) Not on file 07/13/2023 Utilities Answer Date Recorded Do you have trouble paying y our heating, water, or electric bill? No 07/13/2023 Is your family able to pay t he heat, water, or electric bill? (Household - for ages 0-17 years) Not on file 07/13/2023 Does your family have access to good internet? (Household - for ages 0-17 years) Not on file 07/13/2023 Social Connections Answer Date Recorded How often do you feel lonely or isolated from those around you? (Adult - for ages 18 years and over) Not on file 12/16/2023 Transportation Needs Answer Date Record ed READ ONLY Do you have troubl e getting a ride to medical visits or work? Never True 07/13/2023 Does your family have a hard time getting a ride to doctors visits? (Household - for ages 0-17 years) Not on file 07/13/2023 Has lack of transportation k ept you from medical appointments, meetings, work, or from getting things needed for daily living? Check all that apply. (Adult - for ages 18 years and over) Not on file 07/13/2023 Do you (or your family) have trouble finding or paying for a ride (transportation)? (Household - for ages 0-17 years) Not on file 07/13/2023 Housing Stability Answer Date Recorded Do you currently live in a s helter or have no steady place to sleep at night? (Adult - for ages 18 years and over) Not on file 07/13/2023 READ ONLY Do you think you a re at risk of becoming homeless? No 07/13/2023 Does your family worry about paying for your home or becoming homeless? (Household - for ages 0-17 years) Not on file 0 07/13/2023 Are you homeless or worried that you might be in the future? (Adult - for ages 18 years and over) Not on file Are you (or your family) nicole eless or worried that you might be in the future? (Household - for ages 0-17 years) Not on file Food Insecurity Answer Date Recorded Do you need food for this week? No 07/13/2023 Are you able to get enough f ood for your family? (Household - for ages 0-17 years) Not on file 07/13/2023 Does your family need food t his week? (Household - for ages 0-17 years) Not on file 07/13/2023 Do you always have enough fo od for your family? (Household - for ages 0-17 years) Not on file 07/13/2023 Sex and Gender Information Value Date Recorded Sex Assigned at Not on file Gender Identity Not on file Sexual Orientation Not on file Job Start Date Occupation Industry Not on file Not on file Not on file documented as of this encounter Functional Status Functional Status Response Date of Assess ment Are you deaf or do you have serious difficulty hearing? No 07/13/2023 Are you blind or do you have serious difficulty seeing, even when wearing glasses? No-wears glasses 07/13/2023 Do you have serious difficul ty walking or climbing stairs? (5 years old or older) No-"im slower" 07/13/2023 Do you have difficulty dress ing or bathing? (5 years old or older) No 07/13/2023 Because of a physical, menta l, or emotional condition, do you have difficulty doing errands alone such as visiting a doctor s office or shopping? (15 years old or older) No-usually goes with 07/13/2023 Cognitive Status Response Date of Assessm ent Because of a physical, menta l, or emotional condition, do you have serious difficulty concentrating, remembering, or making decisions? (5 years old or older) No 07/13/2023 documented as of this encounter Miscellaneous Notes * Telephone Encounter - Abby Lazcano OSA - 02/06/2024 10:59 AM EDT Medication: fosfomycin Diagnosis: uti 30-Day Supply Date of Last Visit: 09/12/2023 Date of Next Visit: on recall for 6 month return * Telephone Encounter - Kayleen Patiño OSA - 02/06/2024 8:20 AM EDT [place] - Patient Related Communication Reason for Call: Pt called in as she is out of medication ( Fosfomycin ) . Dr Cash was only giving her one dose .She would like sent in to [facility] mail order . JIMMY Campos documented in this encounter Plan of Treatment Health Maintenance Due Date Last Done Comments Depression Screening 1952 Albumin/Creatinine Ratio 1960 Diabetic Eye Exam 1960 Diabetic Foot Exam 1960 DTap/Tdap Vaccines (1 - Tdap) 1961 DXA Scan 04/14/2020 04/14/2018 COVID-19 Vaccine (3 - Pfizer risk series) 04/12/2021 03/15/2021, 01/16/2021 *BISPHONATE OR OTHER ACCEPTABLE MEDICATION NEEDED FOR OSTEOPOROSIS (REFER TO SMARTSET #1146) 01/18/2023 HbA1c 01/11/2024 07/13/2023, 02/28, 11/25/2022, Additional history exists GFR 01/28/2024 07/30/2023, 06/30, 07/13/2023, Additional history exists Influenza Vaccine (FLU shot) (#1) 2024 04/09/2023, 03/27/2020, 04/10/2018, Additional history exists CKD PHOS USE SMARTSET 04513 07/14/202406/30, 04/09/2023, 04/08/2023, Additional history exists CKD HGB USE SMARTSET 05623 07/30/202407/30, 07/30/2023, 07/16/2023, Additional history exists Pneumococcal Vaccine: 65+ Years Completed 05/21/2016, 03/16/2009 Zoster Vaccines Completed 05/21/2019, 01/22/2019 VITAMIN D LEVEL ONCE IN A LIFETIME-USE SMARTSET# [id number] Completed 04/14/2020, 08/03/2018 HPV (Gardasil) Vaccine Aged Out No lo nger eligible based on patient's age to complete this topic Hepatitis B Vaccine Aged Out No longe r eligible based on patient's age to complete this topic MENINGOCOCCAL (MENACTRA/MENVEO) Aged Out No longer eligible based on patient's age to complete this topic documented as of this encounter Medical Devices Not on filedocumented as of this encounter Visit Diagnoses Diagnosis Urinary tract infection without hematuria, site unspecified- Primary documented in this encounter Advance Directives * Full Code (Latest Code Status on File) Date Activated Date Inactivated Comments 07/13/2023 3:39 AM 07/16/2023 6:33 PM This order r eflects the patients wishes and were consensually agreed upon. Question Answer Comments Discussion of Advance Directives occurred with: Patient * Full Code Date Activated Date Inactivated Comments 04/07/2023 11:31 AM 04/09/2023 6:13 PM This order reflects the patients wishes and were consensually agreed upon. Question Answer Comments Discussion of Advance Directives occurred with: Patient * Full Code Date Activated Date Inactivated Comments 03/18/2023 5:28 AM 03/19/2023 7:36 PM This order r eflects the patients wishes and were consensually agreed upon. Question Answer Comments Discussion of Advance Directives occurred with: Patient Does the patient have a Living Will? No Does the patient have Health Care Power of Attor rita? No * Full Code Date Activated Date Inactivated Comments 01/11/2023 4:44 AM 01/13/2023 4:52 PM This order r eflects the patients wishes and were consensually agreed upon. Question Answer Comments Discussion of Advance Directives occurred with: Patient * Full Code Date Activated Date Inactivated Comments 11/25/2022 5:15 AM 11/28/2022 7:21 PM This order re flects the patients wishes and were consensually agreed upon. Question Answer Comments Discussion of Advance Directives occurred with: Patient Care Teams Trust And Estates Attorney Relationship Specialty Start Date End Date Keith Hutchinson DO [address] [facility] [place] [phone] PCP - General Family Medicine 08/28/21 documented as of this encounter
--- NOTE | 2024-04-01 17:46 | Hospitalist Progress Note ---
Date of Service April 01, 2024 Assessment & Plan (1) Infection due to ESBL-producing Escherichia coli: Plan: 83yo female with history of UTI, drug allergy or intolerance to Sulfa, Nitrofurantoin, Cefazolin and Amoxicillin presenting with ESBL E. coli UTI. -Follow urine culture -Continue Ertapenem 1gm IV daily x 5 days for treatment of ESBL E. coli UTI - obtained culture and sensitivity results from [facility] and reviewed, unfortunately not susceptible to any oral agents that she can tolerate consider fosfomycin however she was on every other day fosfomycin previously so there is a good chance that she has resistance. has seen Dr. Gresham with [facility] but not for a year or more, also urology already on vaginal Estrace cream consider trial of methenamine, does not appear that this has been tried -Tylenol as needed for pain or fever discussed option of home infusion to complete her antibiotics course she has done this before and would prefer to get home sooner rather than later, her daughter has helped administer them. Discussed this with care coordination as well Plan Thrombocytopenia - appears to be chronic, mild Mildly elevated bilirubin - frequently elevated in the past. hx CCE. hepatic steatosis, no splenomegaly on recent abd CTs. Potentially Gilbert's Chronic Medical Problems: CKD-3 with Cr at baseline Diabetes -Lantus 10u BID -ISS -Goal blood sugar 110 - 140 Hypertension - blood pressure elevated in the ER but much improved -Continue Amlodipine, Losartan and Metoprolol Hyperlipidemia - chronic, stable -Continue Atorvastatin Anxiety - chronic, stable -Continue Buspirone GERD - chronic, stable -Continue Protonix DVT prophylaxiscontinue SCDs, low risk Admission and Anticipated Discharge Date Admission Date: April 01, 2024 Mary Gonzalez continues to have some dysuria but it has definitely improved compared to yesterday no abdominal pain no fevers chills Physical Exam 2 Physical Exam: PHYSICAL EXAMINATION Last 24h vital signs reviewed, see documentation in flowsheet General: comfortable appearing, no distress HEENT: Normocephalic, atraumatic, pupils round and equal, sclerae anicteric, no conjunctival injection, moist mucus membranes Lungs: Normal respiratory effort. Clear to auscultation bilaterally. No RRW Heart: Regular rate and rhythm, no murmurs. No JVD Abdomen: Soft, nontender, nondistended. Bowel sounds present. Extremities: Warm, dry, well-perfused. No extremity edema. Neuro: Alert and oriented x 4, face symmetric, moves 4 extremities well Psych: Normal affect and behavior Results & Data Results & Data Vital Signs (Past 12 Hours) Vital Signs Temp Pulse Resp BP BP Pulse Ox O2 Del Method 04/01/24 16:36 36.8 C 72 18 103/66 94 Room Air 04/01/24 07:21 36.9 C 84 20 151/73 H 98 Room Air Laboratory Results 03/31/24 22:50 03/31/24 22:50 PG Care Time/CCT Total # of Minutes Spent Total Time Spent with Patient: Total time spent is greater than 50% in coordination of care (as documented) at patient's floor/unit and/or counseling patient: Coding Level of Care Code None Diagnoses Infection due to ESBL-producing Escherichia coli A49.8; Z16.12
[2024-04-01] MEDS ORDERED: ERTAPENEM SODIUM 1,000 MG in SYRINGE 0 ML IV SCH (21:00)
[2024-04-01] MEDS: ATORVASTATIN 10 MG TAB PO SCH (21:08)
[2024-04-01] MEDS: LOSARTAN POTASSIUM 25 MG TAB PO SCH (21:10)
[2024-04-01] MEDS: ERTAPENEM 1000MG 1,000 MG/10 ML SYR IV SCH (21:10)
[2024-04-01] MEDS: MELATONIN 3 MG TAB PO SCH (21:12)
[2024-04-02 07:48] VITALS: RESP 18; TEMP 97.9; O2SAT 95
[2024-04-02 07:55] LABS: Albumin Globulin Ratio 1.7 (0.9-2); Albumin Level 3.3 gm/dl (3.4-5.0); BUN Creatinine Ratio 20.7 (10-20); Bilirubin,Total 1.4 mg/dl (0.2-1.0); Calcium 8.8 mg/dl (8.6-10.3); Creatinine Clr Calc Pharmacy 43.8 ml/min; Potassium 3.8 mmol/L (3.5-5.1); Total Protein 5.3 gm/dl (6.0-8.3)
[2024-04-02 08:01] LABS: Hematocrit (blood only) 36.1 % (37.0-47.0); Hemoglobin 11.7 g/dl (12.0-16.0); Mean Corpuscular Hemoglobin 31.6 pg (25.0-34.0); Mean Corpuscular Hgb Conc 32.4 g/dL (32.0-36.0); Mean Corpuscular Volume 97.6 fL (80.0-100.0); Mean Platelet Volume 11.8 fL (9.4-12.4); Platelet Count 94 K/uL (130-400); RDW Coefficient of Variation 14.1 % (11.5-14.5); RDW Standard Deviation 50.5 fL (36.4-46.3)
[2024-04-02] MEDS: INFLUENZA VACC TS2024-25(65y+)/PF (IIV3) 0.5mL Syr IM ONE (11:28)
[2024-04-02] MEDS ORDERED: CHOLESTYRAMINE LIGHT 4 GM PKT PO PRN (11:34)
[2024-04-02] MEDS: CHOLESTYRAMINE LIGHT 4 GM PKT PO PRN (13:22)
[2024-04-02 14:58] VITALS: BP 103/66; PULSE 75
--- NOTE | 2024-04-02 18:08 | Discharge Summary ---
Discharge Summary Date of Service April 02, 2024 Principal Dx & Hospital Course #1 = Principal Diagnosis (1) Infection due to ESBL-producing Escherichia coli: 83yo female with history of UTI, drug allergy or intolerance to Sulfa, Nitrofurantoin, Cefazolin and Amoxicillin presenting with ESBL E. coli UTI. - dysuria resolved - obtained urine culture and sensitivity results from [facility] and [facility], unfortunately not susceptible to any oral agents that she can tolerate - Ertapenem 1gm IV daily x 5 days for treatment of ESBL E. coli UTI - she will get her last 2 doses via home infusion on 04/03 and 04/04 for UTI prevention she is already using vaginal Estrace cream, she is been followed by infectious disease and urology in the past she has been on every other day fosfomycin and she says she also was on methenamine which was stopped because it was ineffective Plan Thrombocytopenia - appears to be chronic, mild Mildly elevated bilirubin - frequently elevated in the past. hx CCE. hepatic steatosis, no splenomegaly on recent abd CTs. Potentially Gilbert's Chronic Medical Problems: CKD-3 with Cr at baseline Diabetes Hypertension - blood pressure elevated in the ER but much improved -Continue Amlodipine, Losartan and Metoprolol Hyperlipidemia - chronic, stable -Continue Atorvastatin Anxiety - chronic, stable -Continue Buspirone GERD - chronic, stable -Continue Protonix Admission HPI Per Admitting Provider Lisa Payne is an 83yo female with history of GERD, CKD, HLP, recurrent UTI p resenting with persistent UTI symptoms. Patient reports developing dysuria approximately 10 days ago. She was seen by her PCP and was prescribed Cipro x 7 days. She had persistent symptoms so was seen in Urgent Care on 03/28/24. She had a UA and was empirically prescribed additional Cipro for presumed UTI. This evening she received a phone call from the Urgent Care reporting that her urine culture revealed a resistant bacteria and that she would need to come to the hospital for IV antibiotics. Patient reports persistent dysuria otherwise denies suprapubic pain, denies flank pain. She does complaint of chills, fatigue, urinary incontinence and generalized weakness. IN the ER she is afebrile, non-toxic ER Course: NSS Ertapenem Discharge Plan Discharge Items Patient Disposition: Home - Home Health Services Reason For Visit: ESBL UTI Discharge Diagnosis: ESBL E. coli UTI Activity: Resume your previous activity Non-emergency contact: Primary Care Provider Call non-emergency contact if: you have any medication questions, your symptoms worsen and you have a fever Follow-up/Referrals: Keith Hutchinson DO [Primary Care Provider] - Diet: Carb Consistent or DM2 Addtl Attending Provider Instructions: ESBL E. coli UTI Resistant to all the classes of oral antibiotics that you can tolerate Ertapenem for total 5 doses. 3 doses were given in hospital Home infusion will provide a dose for Friday and Friday Its a good idea to take a probiotic for 2-4 weeks after broad spectrum antibiotics to prevent antibiotic associated diarrhea Seek medical attention if you have severe diarrhea especially with abdominal pain or fever It was a pleasure taking care of you in the hospital, Phyllis Morocho MD Pending Studies at Discharge: Yes (urine culture - expected to match the culture from Urgent Care) Stand-Alone Forms: [employer], Smoking Cessation Medications and DC Order Prescriptions: Continued (DME) lancets [Prodigy Lancets] 28 gauge misc See Rx Instructions .Route Qty: 300 3RF Rx Instructions: As directed: check tid cholecalciferol (vitamin D3) [Vitamin D3] 25 mcg (1,000 unit) tablet 1,000 unit PO QDL Qty: 30 3RF (DME) Prodigy No Coding Strip See Rx Instructions .Route Qty: 100 5RF Patient Comments: Pt uses glucometer when wearable flash glucose sensor not on. Rx Instructions: Patient tests 3 times daily and as needed when symtomatic estradiol 0.01 % (0.1 mg/gram) cream 0.5 appful vaginal .COMPLEX Qty: 42.5 1RF Rx Instructions: 0.5 appful vaginally twice weekly; for 14 days (DME) FreeStyle Vicente 2 Sensor Kit See Rx Instructions .Route Qty: 1 3RF Patient Comments: Pt removed wearable glucose monitor 01/24/2023. Rx Instructions: As directed E11.9 AZO D-Mannose 500 mg capsule 500 mg PO DAILY Rx Instructions: Pt started this per Dr. Hudson- for good Urinary health. (DME) BD Insulin Syringe (half unit) 0.3 mL 31 gauge x 5/16" syringe See Rx Instructions .Route Qty: 300 3RF Rx Instructions: use to give insulin three times daily (DME) electric lift chair See Rx Instructions .Route .MEDSUPPLY Qty: 1 0RF Rx Instructions: As directed ascorbic acid (vitamin C) [Vitamin C] 500 mg tablet 500 mg PO DAILY ondansetron HCl 4 mg tablet 4 mg PO Q8H PRN (Reason: Nausea) Qty: 90 1RF Patient Comments: "Several weeks" since last use. (DME) pen needle, diabetic [BD Ultra-Fine Mini Pen Needle] 31 gauge x 3/16" needle See Rx Instructions .Route Qty: 100 3RF Rx Instructions: As directed potassium chloride 10 mEq capsule, extended release 10 meq PO BID Qty: 180 3RF atorvastatin 10 mg tablet 10 mg PO HS Qty: 90 1RF insulin glargine [Lantus Solostar U-100 Insulin] 100 unit/mL (3 mL) insulin pen 28 unit subcut HS 90 Days Qty: 25.2 2RF omeprazole 20 mg capsule,delayed release(DR/EC) 20 mg PO DAILY Qty: 90 1RF Rx Instructions: Pt states she take 20 mg a day cranberry fruit concentrate 125 mg tablet,disintegrating 250 mg PO BID nystatin-triamcinolone 100,000-0.1 unit/gram-% ointment 1 applic topical BID PRN (Reason: Skin Irritation) Qty: 60 0RF losartan 25 mg tablet 25 mg PO HS cholestyramine (with sugar) [Questran] 4 gram powder in packet 4 g PO BID PRN (Reason: Loose stools or diarrhea.) Rx Instructions: administer w/meal; avoid other meds within 1hr before or 4-6hr after dose buspirone 15 mg tablet 15 mg PO TID Qty: 270 0RF insulin aspart U-100 [Novolog U-100 Insulin aspart] 100 unit/mL solution 8 unit subcut TID Qty: 30 3RF melatonin 5 mg capsule 5 mg PO HS Qty: 30 5RF amlodipine 5 mg tablet 5 mg PO BID Glucosamine Chondroitin 550-30-1 mg Capsule 1 cap PO QDL magnesium oxide 400 mg (241.3 mg magnesium) tablet 400 mg PO BID omega 5-agt-llz-fish oil [Fish Oil] 1,200 (144-216) mg Capsule 1 cap PO QDL calcium carbonate [Calcium 600] 600 mg calcium (1,500 mg) tablet 600 mg PO DAILY cyanocobalamin (vitamin B-12) [Vitamin B-12] 1,000 mcg Tablet 1,000 mcg PO DAILY carboxymethylcellulose sodium 1 % Drops, Liquid Gel 2 drp OPHTHALMIC (EYE) BID PRN (Reason: Dry Eye(S)) Probiotic 3 billion cell Capsule 3,000 mmu cells PO DAILY Rx Instructions: administer with a meal multivitamin Tablet 1 tab PO QDL Imbruvica 280 mg tablet 280 mg PO QAM Hold Instructions: Resume on 01/04/23. Rx Instructions: PT BROUGHT OWN MED IN WITH HER, [facility] "DOESN'T CARRY THIS MED", PER PT. metoprolol tartrate 25 mg Tablet 12.5 mg PO BID Qty: 30 0RF ferrous sulfate [FeroSul] 325 mg (65 mg iron) tablet 325 mg PO DAILY Rx Instructions: Take with Vitamin C twice daily Admission Data Admit Date/Time: 04/01/24 01:01 Attending Provider: Phyllis Morocho Admit Provider: Cecelia Mcneill Primary Care Provider: Keith Hutchinson Other Providers: Cecelia Mcneill; [facility],Home Healthcare; Blue,Fax Other Interventions: Discharge Summary Assessment (RN) Last Done: 04/02/24 14:56 Hospital Stay Data Consultations 04/01/24 00:24 ED Decision to Admit Stat Pending Results Patient Have Any Pending Studies at Discharge: Yes (urine culture - expected to match the culture from Urgent Care) Discharge Instructions Given to Patient (Per Discharging Provider) ESBL E. coli UTI Resistant to all the classes of oral antibiotics that you can tolerate Ertapenem for total 5 doses. 3 doses were given in hospital Home infusion will provide a dose for Friday and Friday Its a good idea to take a probiotic for 2-4 weeks after broad spectrum antibiotics to prevent antibiotic associated diarrhea Seek medical attention if you have severe diarrhea especially with abdominal pain or fever It was a pleasure taking care of you in the hospital, Phyllis Morocho MD Total Time Total Time Spent Total Time Spent (In Minutes): I personally spent: 45 minutes today on clinical care activities including: reviewing chart notes and vital signs discussion with wound care technician examining and counseling the patient arranging home infusion writing orders writing prescriptions, discharge instructions documentation Coding Level of Care Code 42212 INP/OBS DISCH >30 MIN Diagnoses Infection due to ESBL-producing Escherichia coli A49.8; Z16.12
== END 2024-04-02 16:20 | disposition home health service (06) ==
LOC: ED 22:21 → 3W 22:21 → SUATTDRO 04-01 01:01 → 3W 04-01 03:30

== ENCOUNTER 2024-04-21 06:22 | Observation (INO) ==
[2024-04-21] MEDS: ERTAPENEM 1000MG 1,000 MG/10 ML SYR IV STA (07:12)
[2024-04-21] MEDS: ONDANSETRON INJ 2 MG/ML 2 ML VIAL IV STA (07:18)
[2024-04-21 07:21] LABS: Basophils # (auto) 0.05 K/uL (0.00-0.20); Basophils % (auto) 0.5 %; Eosinophils # (auto) 0.01 K/uL (0.00-0.50); Eosinophils % (auto) 0.1 %; Hematocrit (blood only) 41.1 % (37.0-47.0); Hemoglobin 13.3 g/dl (12.0-16.0); Immature Granulocytes # (auto) 0.14 K/uL (0.01-0.20); Immature Granulocytes % (auto) 1.3 %; Lymphocytes # (auto) 1.22 K/uL (1.20-3.40); Lymphocytes % (auto) 11.1 %; Mean Corpuscular Hemoglobin 31.4 pg (25.0-34.0); Mean Corpuscular Hgb Conc 32.4 g/dL (32.0-36.0); Mean Corpuscular Volume 97.2 fL (80.0-100.0); Mean Platelet Volume 12.9 fL (9.4-12.4); Monocytes # (auto) 0.85 K/uL (0.11-0.59); Monocytes % (auto) 7.7 %; Neutrophils # (auto) 8.75 K/uL (1.40-6.50); Neutrophils % (auto) 79.3 %; Platelet Count 130 K/uL (130-400); RDW Coefficient of Variation 13.4 % (11.5-14.5); RDW Standard Deviation 47.7 fL (36.4-46.3); Red Blood Count 4.23 M/uL (4.20-5.40); White Blood Count 11.02 K/ul (4.8-10.8)
[2024-04-21 07:40] LABS: Albumin Globulin Ratio 1.5 (0.9-2); Albumin Level 3.8 gm/dl (3.4-5.0); BUN Creatinine Ratio 18.4 (10-20); Bilirubin,Total 1.5 mg/dl (0.2-1.0); Globulin 2.5 gm/dl (2.5-4.0); Potassium 4.3 mmol/L (3.5-5.1); Total Protein 6.3 gm/dl (6.0-8.3)
[2024-04-21 08:02] LABS: Appearance Urine Cloudy (Clear); Bacteria Urine Automated 3+ (None Seen); Bilirubin Urine 1+ (Negative); Blood Urine Trace (Negative); Cast Urine Automated 0-2 /lpf (0-2); Color Urine Orange; Glucose Urine UA Negative (Negative); Ketones Urine Negative (Negative); Leukocyte Esterase Urine 2+ (Negative); Nitrite Urine Positive (Negative); Protein Urine 1+ (Negative); Specific Gravity Urine 1.015 (1.000-1.030); Urobilinogen Urine Negative (Negative); pH Urine 5.5 (4.5-7.5)
--- NOTE | 2024-04-21 08:18 | History & Physical Report ---
Date of Service April 21, 2024 Assessment & Plan (1) UTI (urinary tract infection): Plan: Patient presented on 04/21 for worsening UTI symptoms Placed on Bactrim by her PCP on 04/14, then was placed on Macrobid by [facility] on 04/16 UCx on 04/14 grew ESBL E. coli with significant resistance Discussed option for MTU with patient at bedside, as her main reason to be in the hospital would be for IV antibiotics At time of admission, patient would prefer to stay in the hospital, rather than do outpatient IV antibiotics Ertapenem 1000 mg IV q24h Encourage p.o. fluid intake in the setting of national IVF shortage A.m. CBC, CMP, mag (2) Infection due to ESBL-producing Escherichia coli: Plan: Treatment (as above) (3) Transaminitis: Plan: Mildly elevated on arrival; ?secondary to recent Macrobid use Liver ultrasound ordered, pending Trend CMP (4) Diabetes: Plan: Last A1c at 6.7% on 04/06/2024 Patient reports she is normally on Lantus 28 units at night Will do Lantus 14 u BID while inpatient SSI with target BSG range 110-140mg/dL, CF 35, carb ratio 15 T2DM diet BSG ACHS Adjust regimen as needed (5) Poison morgan dermatitis: Plan: On the arms bilaterally x 1 week Patient reports she rubbed against sumac leaves at home Topical clobetasol propionate ointment application BID Plan Disposition: Admit to [facility] Full code T2DM diet VTE PPx: Lovenox 40 mg SQ q24h History of Present Illness Chief Complaint: UTI Primary Care Provider: Keith Hutchinson DO Lisa is a pleasant 83-year-old female with PMH of complicated UTIs, urgency incontinence, paroxysmal atrial fibrillation, chronic pancreatitis, cervical cancer, CLL, orthostatic hypotension, glaucoma, ESBL E. coli infection, and CKD stage III. She presented on 04/21 for worsening UTI symptoms. Patient reports that she has had UTI symptoms throughout most of March; she is not exactly sure when it started. She has a history of recurrent UTIs. She was initially placed on a course of ciprofloxacin, which failed, and then placed on Bactrim by her PCP on 04/14. The urine culture on 04/14 grew ESBL E. coli, and patient received a call from Dr. Hutchinson (PCP) telling her she needed to go to the ER. She went to [facility] on Monday 04/16 and Tuesday 04/17 was prescribed Macrobid. Despite this she has continued to have burning with urination, dysuria, and lower back pain. No hematuria. No history of kidney stones. Patient took her regular morning medications today; only recent change was that she was recently on many different antibiotics. She manages her own medicine at home. Patient lives with her who is 86 years old. No sick contacts. Additional symptoms include elevated heart rate; she reports that she woke up last night feeling like her heart was racing, and reports it was around 96 bpm. While she has not had a temperature at home, she reports she was around 98.1 F for last couple days, which might of been high for her. Patient does not have a significant history of liver issues; no history of hepatitis. She does note she had a "liver bleed" secondary to taking Tylenol a very long time ago. She denies alcohol use, history of alcohol use, tobacco use, or smoking. She has not noticed any recent tick bites. However she does believe she might have poison morgan on both her arms from sumac leaves, and that she first noticed last week. Patient is hypertensive at 165/77 at time of admission; vitals otherwise stable. ED course: Ertapenem 1000 mg IV Zofran 4 mg IV ROS: Patient endorses heat intolerance, increased heart rate (97bpm last night), dry cough, nausea/vomiting (resolved; last vomited over the weekend), urinary incontinence (chronic), loose stool, burning with urination, dysuria, and lower back pain. Patient denies fever (98 was the highest at home), chills, night-sweats, dizziness, lightheadedness, HILLMAN, chest pain, SOB, hematuria, abdominal pain, hematemesis, diarrhea, saddle anesthesia, or numbness/tingling going down the legs. Allergies Allergy/AdvReac Type Severity Reaction Status Date / Time amoxicillin Allergy Severe Swelling Verified 03/16/24 14:47 of Lip/Tongue/Throat cefazolin Allergy Severe Hives Verified 03/16/24 14:47 egg Allergy Severe Gastrointestinal Verified 03/16/24 14:47 Upset nut - unspecified Allergy Severe Swelling Verified 03/16/24 14:47 of Lip/Tongue/Throat pineapple Allergy Severe Swelling Verified 03/16/24 14:47 of Lip/Tongue/Throat nitrofurantoin Allergy Mild tachycardia Verified 03/16/24 14:47 aspirin Allergy Unknown INCREASES Verified 03/16/24 14:47 BLEEDING doxycycline Allergy Hives Verified 04/14/24 14:19 acetaminophen [From Tylenol] AdvReac Severe liver bleed Verified 03/16/24 14:47 duloxetine AdvReac Severe SEVERE Verified 03/16/24 14:47 VOMITING caffeine AdvReac Intermediate racing Verified 03/16/24 14:47 heart lisinopril AdvReac Intermediate cough, Verified 03/16/24 14:47 white "stuff" all over lungs Sulfa (Sulfonamide AdvReac Intermediate Tinnitis Verified 03/16/24 14:47 Antibiotics) Home Medications Medication Instructions Recorded Confirmed Type amlodipine 5 mg tablet 5 mg PO BID 06/24/20 04/21/24 History glucosamine sulf dipot 1 cap PO QDL 06/24/20 04/21/24 History chlr,msm,chond 550 mg-C 30 mg-aleena 1 mg capsule (Glucosamine Chondroitin) magnesium oxide 400 mg (241.3 mg 400 mg PO BID 06/24/20 04/21/24 History magnesium) tablet omega 2-dew-dxk-fish oil 1,200 mg 1 cap PO QDL 06/24/20 04/21/24 History (144 mg-216 mg) capsule (Fish Oil) ibrutinib 280 mg tablet (Imbruvica) 280 mg PO QAM 11/10/20 04/21/24 History multivitamin 1 tab PO QDL 11/10/20 04/21/24 History lancets 28 gauge (Prodigy Lancets) #300 ea 04/23/21 04/14/24 Rx losartan 25 mg tablet 25 mg PO HS 07/19/21 04/21/24 History metoprolol tartrate 25 mg tablet 12.5 mg (1/2 x 25 mg) PO BID #30 08/25/21 04/21/24 Rx tabs cholecalciferol (vitamin D3) 25 1,000 unit PO QDL #30 tabs 11/13/21 04/21/24 Rx mcg (1,000 unit) tablet (Vitamin D3) blood sugar diagnostic (Prodigy No #100 ea 04/18/22 04/14/24 Rx Coding strips) estradiol 0.01% (0.1 mg/gram) 0.5 appful vaginal .COMPLEX #42.5 10/09/22 04/21/24 Rx vaginal cream grams flash glucose sensor (FreeStyle #1 ea 11/06/22 04/14/24 Rx Vicenet 2 Sensor kit) calcium carbonate (Calcium 600) 600 mg PO DAILY 11/29/22 04/21/24 History carboxymethylcellulose sodium 1 % 2 drp ophthalmic (eye) BID PRN Dry 12/17/22 04/21/24 History eye liquid gel drops Eye(S) cyanocobalamin (vitamin B-12) 1,000 mcg PO DAILY 12/17/22 04/21/24 History 1,000 mcg tablet (Vitamin B-12) lactobacillus combination no.4 3 3,000 mmu cells PO DAILY 12/17/22 04/21/24 History billion cell capsule (Probiotic) cholestyramine (with sugar) 4 gram 4 g PO BID PRN Loose stools or 01/14/23 04/21/24 History powder for susp in a packet diarrhea. (Questran) d-mannose 500 mg capsule (AZO 500 mg PO DAILY 01/28/23 04/21/24 History D-Mannose) electric lift chair #1 ea 07/10/23 04/14/24 Rx ascorbic acid (vitamin C) 500 mg 500 mg PO DAILY 07/18/23 04/21/24 History tablet (Vitamin C) cranberry fruit concentrate 125 mg 250 mg PO BID 07/18/23 04/21/24 History disintegrating tablet ondansetron HCl 4 mg tablet 4 mg PO Q8H PRN Nausea #90 tabs 07/21/23 04/21/24 Rx pen needle, diabetic 31 gauge x #100 ea 07/21/23 04/14/24 Rx 3/16" (BD Ultra-Fine Mini Pen Needle) melatonin 5 mg capsule 5 mg PO HS #30 caps 08/06/23 04/21/24 Rx potassium chloride 10 mEq 10 meq PO BID #180 caps 08/26/23 04/21/24 Rx capsule,extended release atorvastatin 10 mg tablet 10 mg PO HS #90 tabs 09/03/23 04/21/24 Rx nystatin-triamcinolone 100,000 1 applic topical BID PRN Skin 10/10/23 04/21/24 Rx unit/gram-0.1 % topical ointment Irritation #60 grams insulin glargine 100 unit/mL (3 28 unit (0.28 mL) subcut HS 3 10/21/23 04/21/24 Rx mL) subcutaneous pen (Lantus months #25.2 mL Solostar U-100 Insulin) omeprazole 20 mg capsule,delayed 20 mg PO DAILY #90 caps 01/19/24 04/21/24 Rx release buspirone 15 mg tablet 15 mg PO TID #270 tabs 03/16/24 04/21/24 Rx insulin aspart U-100 100 unit/mL 8 unit (0.08 mL) subcut TID #30 mL 03/16/24 04/21/24 Rx subcutaneous solution (Novolog U-100 Insulin aspart) ferrous sulfate 325 mg (65 mg 325 mg PO DAILY 03/31/24 04/21/24 History iron) tablet (FeroSul) insulin syr/ndl U100 half morena 0.3 #300 ea 04/05/24 04/14/24 Rx mL 31 gauge x 5/16" (BD Insulin Syringe Ultra-Fine (half unit)) calcitriol 0.25 mcg capsule 0.25 mcg PO DAILY 04/16/24 04/21/24 History nitrofurantoin 100 mg PO BID 10 days #20 caps 04/20/24 04/21/24 Rx monohydrate/macrocrystals 100 mg capsule (Macrobid) Past Med/Surg History Problem List (Updated 04/21/24 @ 11:48 by Sahara Mancuso MD) Urinary tract infection due to ESBL Klebsiella (Acute) Poison morgan dermatitis Transaminitis Infection due to ESBL-producing Escherichia coli (Acute) Hyponatremia CKD (chronic kidney disease), stage III Nausea Insomnia Chest pain Cellulitis of right forearm Right wrist pain Right hand pain Yeast vaginitis Urinary incontinence (Acute) Hyperlipidemia (Acute) Nausea & vomiting (Acute) Recurrent UTI (Chronic) History of fibula fracture (~12/24/21) left fibula Bilateral hydronephrosis Recurrent UTI Colon polyps Colitis Skin candidiasis Diarrhea Lumbar pain Glaucoma Situational anxiety Left arm numbness Orthostatic hypotension Thrombocytopenia (Acute) 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 (chronic lymphocytic leukemia) (Chronic) [facility] current use of anticoagulant (Acute) History of cervical cancer Anxiety Peripheral neuropathy Chronic pancreatitis Paroxysmal A-fib Back pain (Acute) UTI (urinary tract infection) (Acute) Dysuria (Acute) Constipation Hypertension Diabetes Complicated UTI (urinary tract infection) (Acute) Urgency incontinence Bilateral hydronephrosis (Acute) Adverse drug reaction Medical History GERD (gastroesophageal reflux disease) Tick bite Bacteremia Recurrent UTI Gross hematuria Acute GI bleeding Bleeding per rectum Abdominal pain BRBPR (bright red blood per rectum) Nut allergy Acute pyelonephritis Cervical cancer Cataract Hypokalemia Diarrhea DVT prophylaxis Accidental acetaminophen overdose Guaiac positive stools Poisoning by acemetacin Acute GI bleeding Elevated bilirubin Abnormal EKG Surgical History S/P cataract surgery both eyes S/P appendectomy S/P cholecystectomy H/O: hysterectomy Family History Mother Heart disease Father Lung disease Prostate cancer Sister COVID Arthritis Uncle Myocardial infarction Heart disease Aunt Myocardial infarction Denies family history of Ovarian cancer Breast cancer Colorectal cancer Social History Smoking Status: Never smoker Second Hand Exposure: No; Do You Dip or Chew Tobacco: No; Hx Alcohol Use: No Hx Substance Use: No Preferred Language: Uzbek Communication Ability: Effective Visual Impairment: Limited Hearing Ability: Normal Economic Development Manager Required: No Beliefs That Will Affect Care: None marital status: Current Living Situation: Spouse Current Living Situation Comment: Ranch style home with , 2 steps to enter the home current occupational status: retired current occupation: [employer] How many Children do You have: 1 Other Information That Helps Us Care for You: No other: 1 alive and 1 Feels Safe at Home: Yes Safety Concerns: Feels Safe At This Time Childhood Exposure to Second-Hand Smoke: No Diet: low carbohydrate and regular caffeine: No during the past year weight has: remained stable Dental Care, Regularly: No Physical Activity Frequency: Does not Exercise Seatbelt Use: always Sunscreen Use: No (hardly in sun d/t medicine ) Do you think of yourself as: straight/heterosexual Gender Identity: Female Assistive Devices: Glasses, Lift Chair and Walker Review of Systems Review of Systems: See HPI above Physical Exam Physical Exam: General: no acute distress; non-toxic appearing; well-nourished; cooperative HEENT: normocephalic, atraumatic; no scleral icterus; PERRLA w/ EOMs intact; vision and hearing grossly intact Neck: supple; no lymphadenopathy; trachea midline Skin: Erythematous, itchy rash noted on the arms bilaterally; not raised; warm, dry without signs of tenting; no cyanosis; no rashes, bruising, lesions, or erythema noted CV: chest wall NTP; RRR; S1/S2 normal; no murmurs/rubs/gallops; pulses intact and symmetric at radial, DP, and PT Lungs: no acute respiratory distress; symmetrical chest wall expansion; clear breath sounds across all lung philip w/o adventitious sounds; no wheezing ABD: Soft, NTP; BS present; no rebound/guarding; no distention MSK: no tics or fasciculations; no edema noted in the LEs b/l, nonerythematous Neuro: A&Ox3; normal mood and affect; fluent speech; no focal deficits; sensation grossly intact in the LEs b/l Rash on arms Negative CVA tenderness Results & Data Results & Data Vital Signs (Past 12 Hours) Vital Signs Temp Pulse Resp BP Pulse Ox O2 Del Method 04/21/24 07:04 69 18 93 Room Air 04/21/24 06:44 79 04/21/24 06:27 36.7 C 81 16 165/77 H 93 Room Air Laboratory Results Abnormal lab results 04/21/24 04/21/24 Range/Units 06:38 06:40 WBC 11.02 H (4.8-10.8) K/ul RDW Std Deviation 47.7 H (36.4-46.3) fL MPV 12.9 H (9.4-12.4) fL Neut # (Auto) 8.75 H (1.40-6.50) K/uL Josephine # (Auto) 0.85 H (0.11-0.59) K/uL Glucose 175 H (70-99(Fasting)) mg/dl Total Bilirubin 1.5 H (0.2-1.0) mg/dl AST 46 H (13-39) U/L ALT 55 H (7-52) U/L Alkaline Phosphatase 125 H (34-104) U/L Urine Appearance Cloudy A (Clear) Urine Protein 1+ H (Negative) Urine Blood Trace H (Negative) Urine Nitrite Positive A (Negative) Urine Bilirubin 1+ H (Negative) Ur Leukocyte Esterase 2+ H (Negative) Urine WBC (Auto) 11-20 H (0-5) /hpf Urine RBC (Auto) 11-20 H (0-2) /hpf U Epithel Cells (Auto) 3-5 H (0-2) /hpf Urine Bacteria (Auto) 3+ H (None Seen) Code Status & VTE Plan VTE Prophylaxis Plan VTE Prophylaxis will be ordered: Yes Supervising Physician Co-Signing Physician Notes I personally examined the patient and verified all chavira points of history and exam, discussed case, and agree with decision making with Nishi Lazcano PA-C dysuria not getting better. no sx concerning for sepsis/pyelo vitals noted nad heent nc at mmm breathing unlabored no accessory muscles good effort skin no rashes no pallor or icterus ESBL UTI failing outpt Rx - appears bacteria resistant to some of prior antibiotics , and while sensitive to macrobid (and quite reasonable to try in order to stave off need for IV/inpatient/etc) her eGFR is low enough that macrobid unlikely to be effective. ertapenem - hopefully home w IV as outpt (home nursing vs MTU) once feeling better mild transaminitis - highly likely related to macrobid. follow LFTs periodically DVT proph - lovenox otherwise as above PG Care Time/CCT Total # of Minutes Spent Total Time Spent with Patient: Total time spent is greater than 50% in coordination of care (as documented) at patient's floor/unit and/or counseling patient: Coding [place] [address] INT INP/OBS CARE 3/75MIN Patient Type Established Medical Decision Making High Complexity Diagnoses UTI (urinary tract infection) N39.0 Hematuria presence: without hematuria Urinary tract infection type: site unspecified Infection due to ESBL-producing Escherichia coli A49.8; Z16.12 Transaminitis R74.01 Diabetes E11.9 Poison morgan dermatitis L23.7 (1) UTI (urinary tract infection) Hematuria presence: without hematuria Urinary tract infection type: site unspecified Qualified Code(s): N39.0 - Urinary tract infection, site not specified
--- NOTE | 2024-04-21 09:00 | Ultrasound Report ---
ULTRASOUND RIGHT UPPER QUADRANT ABDOMEN CLINICAL HISTORY: Elevated hepatic transaminases. COMPARISON STUDY: Abdominal CT dated 02/03/2023 TECHNIQUE: Real-time, grayscale, and color flow sonography of the right upper quadrant of the abdomen was performed. Images are reviewed in the transverse and longitudinal planes. FINDINGS: Liver: The liver is normal in size and echotexture. There is no intrahepatic biliary ductal dilatatio n. The main portal vein is patent. Gallbladder: The gallbladder is surgically absent. The common bile duct measures up to 0.6 cm in diam eter. Pancreas: A 5 mm cystic focus in the pancreatic head is unchanged and typical for a small sidebranch IPMN. Visualized portions of the pancreatic head and body are otherwise normal in appearance. The spl enic vein is patent. Right kidney: Survey images of the right kidney demonstrate cortical atrophy. Echotexture is normal. There is moderate right-sided hydronephrosis. Ascites: None. IMPRESSION: 1. The liver is normal in size and echotexture. 2. Status post cholecystectomy. 3. There is moderate right-sided hydronephrosis, which is similar to previous. ACT 112: Negative or not required by law. Electronically signed by: Reilly Mackey M.D. 04/21/2024 8:58 AM
[2024-04-21] MEDS ORDERED: CARBOHYDRATES FOR HYPOGLYCEMIA PO PRN (10:58)
[2024-04-21] MEDS ORDERED: GLUCOSE 10 TAB/TUBE PO PRN (10:58)
[2024-04-21] MEDS ORDERED: GLUCOSE 40% GEL 15 GM TUBE PO PRN (10:58)
[2024-04-21] MEDS ORDERED: GLUCAGON FOR INJ 1 MG VIAL SQ PRN (10:58)
[2024-04-21] MEDS ORDERED: ONDANSETRON INJ 2 MG/ML 2 ML VIAL IV PRN (10:58)
[2024-04-21] MEDS ORDERED: MELATONIN 3 MG TAB PO PRN ×2 (10:58→11:07)
[2024-04-21] MEDS ORDERED: DEXTROSE 50% 50 ML SYRINGE IV PRN (10:58)
[2024-04-21] MEDS ORDERED: ARTIFICIAL TEARS OP PRN (11:04)
[2024-04-21] MEDS ORDERED: CHOLESTYRAMINE LIGHT 4 GM PKT PO PRN (11:05)
--- NOTE | 2024-04-21 11:38 | Emergency Department Note ---
Impression & Plan Urinary tract infection due to ESBL Klebsiella ED Provider Note CHIEF COMPLAINT: UTI symptoms albuterol HISTORY OF PRESENT ILLNESS: This 83-year-old female patient past medical history of ESBL UTI, chronic kidney disease, urinary incontinence, hyperlipidemia, bilateral hydronephrosis, CLL, chronic anticoagulation, diabetes, hypertension presents to the emergency department with complaints of recurrent urinary symptoms. The patient was evaluated by her PCP approximately 1 week ago and placed on Bactrim. Patient continued to have symptoms of UTI and presented to an outside hospital emergency department. She was placed on Macrobid pending urine cultures. She states she went back 2 days later with a "did not do anything." REVIEW OF SYSTEMS: A review of systems was performed with positives and pertinent negatives listed in the history of present illness. 10 systems were reviewed and are otherwise negative. ALLERGIES: see below MEDICATIONS: see below PMH: see below SOCIAL HISTORY: see below DDx: UTI, resistant organism, kidney stone, pyelonephritis, diverticulitis, appendicitis among others. PHYSICAL EXAM: Vital signs reviewed. General: Well-appearing 83-year-old female, in no significant distress. HEENT: No scleral icterus, PERRLA, neck supple. Moist mucous membranes Cardiovascular: Regular rate and rhythm, no extra sounds. Pulmonary: Clear to auscultation bilaterally, normal work of breathing. Abdomen: Soft, nontender, nondistended, positive bowel sounds. Musculoskeletal: Atraumatic, no peripheral edema. No CVA tenderness Neurologic: Patient awake alert and oriented x 3, speech is clear Skin: Warm, dry, no rash EMERGENCY DEPARTMENT COURSE/MDM: This patient was evaluated and appeared to be in no significant distress. IV access was obtained and laboratory work was drawn. The patient was placed on the campus monitor noted to be in a normal sinus rhythm. Laboratory work reveals a normal WBC, UA is positive. In review of old records, urine culture is positive for an ESBL. Patient has multiple medication allergies that also limit our choices. She was given a dose of IV ertapenem which she has tolerated well. Patient will require hospitalization pending current urine culture and dispo planning. Hospitalist service was contacted who agreed to evaluate the patient for admission and further management. MONITORING: An order for cardiac monitoring was placed and the patient is noted to be in a normal sinus rhythm at 77 beats per minute. RADIOLOGY: Ultrasound of the right upper quadrant per radiology is negative for acute findings. Please see final read below. DISPOSITION: Admission Past Med/Surg History Problem List (Updated 04/21/24 @ 11:48 by Sahara Mancuso MD) Urinary tract infection due to ESBL Klebsiella (Acute) Poison morgan dermatitis Transaminitis Infection due to ESBL-producing Escherichia coli (Acute) Hyponatremia CKD (chronic kidney disease), stage III Nausea Insomnia Chest pain Cellulitis of right forearm Right wrist pain Right hand pain Yeast vaginitis Urinary incontinence (Acute) Hyperlipidemia (Acute) Nausea & vomiting (Acute) Recurrent UTI (Chronic) History of fibula fracture (~12/24/21) left fibula Bilateral hydronephrosis Recurrent UTI Colon polyps Colitis Skin candidiasis Diarrhea Lumbar pain Glaucoma Situational anxiety Left arm numbness Orthostatic hypotension Thrombocytopenia (Acute) 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 (chronic 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 (Acute) History of cervical cancer Anxiety Peripheral neuropathy Chronic pancreatitis Paroxysmal A-fib Back pain (Acute) UTI (urinary tract infection) (Acute) Dysuria (Acute) Constipation Hypertension Diabetes Complicated UTI (urinary tract infection) (Acute) Urgency incontinence Bilateral hydronephrosis (Acute) Adverse drug reaction Medical History GERD (gastroesophageal reflux disease) Tick bite Bacteremia Recurrent UTI Gross hematuria Acute GI bleeding Bleeding per rectum Abdominal pain BRBPR (bright red blood per rectum) Nut allergy Acute pyelonephritis Cervical cancer Cataract Hypokalemia Diarrhea DVT prophylaxis Accidental acetaminophen overdose Guaiac positive stools Poisoning by acemetacin Acute GI bleeding Elevated bilirubin Abnormal EKG Surgical History S/P cataract surgery both eyes S/P appendectomy S/P cholecystectomy H/O: hysterectomy Family History Mother Heart disease Father Lung disease Prostate cancer Sister COVID Arthritis Uncle Myocardial infarction Heart disease Aunt Myocardial infarction Denies family history of Ovarian cancer Breast cancer Colorectal cancer Social History Smoking Status: Never smoker Second Hand Exposure: No; Do You Dip or Chew Tobacco: No; Hx Alcohol Use: No Hx Substance Use: No Preferred Language: Mongolian Communication Ability: Effective Visual Impairment: Limited Hearing Ability: Normal Pumper Hand Required: No Beliefs That Will Affect Care: None marital status: Current Living Situation: Spouse Current Living Situation Comment: Ranch style home with , 2 steps to enter the home current occupational status: retired current occupation: [employer] How many Children do You have: 1 Other Information That Helps Us Care for You: No other: 1 alive and 1 Feels Safe at Home: Yes Safety Concerns: Feels Safe At This Time Childhood Exposure to Second-Hand Smoke: No Diet: low carbohydrate and regular caffeine: No during the past year weight has: remained stable Dental Care, Regularly: No Physical Activity Frequency: Does not Exercise Seatbelt Use: always Sunscreen Use: No (hardly in sun d/t medicine ) Do you think of yourself as: straight/heterosexual Gender Identity: Female Assistive Devices: Glasses and Walker Allergies Allergies Allergy/AdvReac Type Severity Reaction Status Date / Time amoxicillin Allergy Severe Swelling Verified 03/16/24 14:47 of Lip/Tongue/Throat cefazolin Allergy Severe Hives Verified 03/16/24 14:47 egg Allergy Severe Gastrointestinal Verified 03/16/24 14:47 Upset nut - unspecified Allergy Severe Swelling Verified 03/16/24 14:47 of Lip/Tongue/Throat pineapple Allergy Severe Swelling Verified 03/16/24 14:47 of Lip/Tongue/Throat nitrofurantoin Allergy Mild tachycardia Verified 03/16/24 14:47 aspirin Allergy Unknown INCREASES Verified 03/16/24 14:47 BLEEDING doxycycline Allergy Hives Verified 04/14/24 14:19 acetaminophen [From Tylenol] AdvReac Severe liver bleed Verified 03/16/24 14:47 duloxetine AdvReac Severe SEVERE Verified 03/16/24 14:47 VOMITING caffeine AdvReac Intermediate racing Verified 03/16/24 14:47 heart lisinopril AdvReac Intermediate cough, Verified 03/16/24 14:47 white "stuff" all over lungs Sulfa (Sulfonamide AdvReac Intermediate Tinnitis Verified 03/16/24 14:47 Antibiotics) Home Meds Home Medications Medication Instructions Recorded Confirmed amlodipine 5 mg tablet 5 mg PO BID 06/24/20 04/21/24 glucosamine sulf dipot 1 cap PO QDL 06/24/20 04/21/24 chlr,msm,chond 550 mg-C 30 mg-aleena 1 mg capsule (Glucosamine Chondroitin) magnesium oxide 400 mg (241.3 mg 400 mg PO BID 06/24/20 04/21/24 magnesium) tablet omega 2-deg-mxb-fish oil 1,200 mg 1 cap PO QDL 06/24/20 04/21/24 (144 mg-216 mg) capsule (Fish Oil) ibrutinib 280 mg tablet (Imbruvica) 280 mg PO QAM 11/10/20 04/21/24 multivitamin 1 tab PO QDL 11/10/20 04/21/24 losartan 25 mg tablet 25 mg PO HS 07/19/21 04/21/24 calcium carbonate (Calcium 600) 600 mg PO DAILY 11/29/22 04/21/24 carboxymethylcellulose sodium 1 % 2 drp ophthalmic (eye) BID PRN Dry 12/17/22 04/21/24 eye liquid gel drops Eye(S) cyanocobalamin (vitamin B-12) 1,000 mcg PO DAILY 12/17/22 04/21/24 1,000 mcg tablet (Vitamin B-12) lactobacillus combination no.4 3 3,000 mmu cells PO DAILY 12/17/22 04/21/24 billion cell capsule (Probiotic) cholestyramine (with sugar) 4 gram 4 g PO BID PRN Loose stools or 01/14/23 04/21/24 powder for susp in a packet diarrhea. (Questran) d-mannose 500 mg capsule (AZO 500 mg PO DAILY 01/28/23 04/21/24 D-Mannose) ascorbic acid (vitamin C) 500 mg 500 mg PO DAILY 07/18/23 04/21/24 tablet (Vitamin C) cranberry fruit concentrate 125 mg 250 mg PO BID 07/18/23 04/21/24 disintegrating tablet ferrous sulfate 325 mg (65 mg 325 mg PO DAILY 03/31/24 04/21/24 iron) tablet (FeroSul) calcitriol 0.25 mcg capsule 0.25 mcg PO DAILY 04/16/24 04/21/24 Previous Rx's Medication Instructions Recorded lancets 28 gauge (Prodigy Lancets) #300 ea 04/23/21 metoprolol tartrate 25 mg tablet 12.5 mg (1/2 x 25 mg) PO BID #30 08/25/21 tabs cholecalciferol (vitamin D3) 25 1,000 unit PO QDL #30 tabs 11/13/21 mcg (1,000 unit) tablet (Vitamin D3) blood sugar diagnostic (Prodigy No #100 ea 04/18/22 Coding strips) estradiol 0.01% (0.1 mg/gram) 0.5 appful vaginal .COMPLEX #42.5 10/09/22 vaginal cream grams flash glucose sensor (FreeStyle #1 ea 11/06/22 Vicente 2 Sensor kit) electric lift chair #1 ea 07/10/23 ondansetron HCl 4 mg tablet 4 mg PO Q8H PRN Nausea #90 tabs 07/21/23 pen needle, diabetic 31 gauge x #100 ea 07/21/23 3/16" (BD Ultra-Fine Mini Pen Needle) melatonin 5 mg capsule 5 mg PO HS #30 caps 08/06/23 potassium chloride 10 mEq 10 meq PO BID #180 caps 08/26/23 capsule,extended release atorvastatin 10 mg tablet 10 mg PO HS #90 tabs 09/03/23 nystatin-triamcinolone 100,000 1 applic topical BID PRN Skin 10/10/23 unit/gram-0.1 % topical ointment Irritation #60 grams insulin glargine 100 unit/mL (3 28 unit (0.28 mL) subcut HS 3 10/21/23 mL) subcutaneous pen (Lantus months #25.2 mL Solostar U-100 Insulin) omeprazole 20 mg capsule,delayed 20 mg PO DAILY #90 caps 01/19/24 release buspirone 15 mg tablet 15 mg PO TID #270 tabs 03/16/24 insulin aspart U-100 100 unit/mL 8 unit (0.08 mL) subcut TID #30 mL 03/16/24 subcutaneous solution (Novolog U-100 Insulin aspart) insulin syr/ndl U100 half morena 0.3 #300 ea 04/05/24 mL 31 gauge x 5/16" (BD Insulin Syringe Ultra-Fine (half unit)) nitrofurantoin 100 mg PO BID 10 days #20 caps 04/20/24 monohydrate/macrocrystals 100 mg capsule (Macrobid) Results & Data (ED) Vital Signs Vital Signs - 24 hr 04/21/24 06:27 04/21/24 06:44 04/21/24 07:04 Temperature 36.7 C Temperature Source Oral Pulse Rate 81 79 69 Pulse Rhythm Regular Respiratory Rate 16 18 Respiratory Effort / Characteristics Non-Labored Spontaneous Respiratory Depth Normal Respiratory Pattern Regular Blood Pressure 165/77 H Blood Pressure Mean 106 Blood Pressure Position Sitting Pulse Oximetry 93 93 Oxygen Delivery Method Room Air Room Air Sepsis Recent Fever Within 48 Hours No Sepsis New/Unexplained Change in Mental Status N/A Sepsis Action Taken by Nursing No Action Required Home Medications Current Medication List: was personally reviewed by me Laboratory Data Attestation: I reviewed the patient's lab results. 04/21/24 06:40 04/21/24 06:40 Lab Results 04/21/24 04/21/24 Range/Units 06:38 06:40 WBC 11.02 H (4.8-10.8) K/ul RBC 4.23 (4.20-5.40) M/uL Hgb 13.3 (12.0-16.0) g/dl Hct 41.1 (37.0-47.0) % MCV 97.2 (80.0-100.0) fL MCH 31.4 (25.0-34.0) pg MCHC 32.4 (32.0-36.0) g/dL RDW Std Deviation 47.7 H (36.4-46.3) fL RDW Coeff of Matthew 13.4 (11.5-14.5) % Plt Count 130 (130-400) K/uL MPV 12.9 H (9.4-12.4) fL Immature Gran % (Auto) 1.3 % Neut % (Auto) 79.3 % Lymph % (Auto) 11.1 % [place] % (Auto) 7.7 % Eos % (Auto) 0.1 % Baso % (Auto) 0.5 % Neut # (Auto) 8.75 H (1.40-6.50) K/uL Lymph # (Auto) 1.22 (1.20-3.40) K/uL [place] # (Auto) 0.85 H (0.11-0.59) K/uL Eos # (Auto) 0.01 (0.00-0.50) K/uL Baso # (Auto) 0.05 (0.00-0.20) K/uL Immature Gran # (Auto) 0.14 (0.01-0.20) K/uL Sodium 138 (136-145) mmol/L Potassium 4.3 (3.5-5.1) mmol/L Chloride 104 (98-107) mmol/L Carbon Dioxide 27 (21-32) mmol/L Anion Gap 7 (3-11) BUN 19 (6-23) mg/dl Creatinine 1.03 (0.6-1.2) mg/dl Est Cr Clr Drug Dosing 52.0 ml/min eGFR 54.63 BUN/Creatinine Ratio 18.4 (10-20) Glucose 175 H (70-99(Fasting)) mg/dl Calcium 9.0 (8.6-10.3) mg/dl Total Bilirubin 1.5 H (0.2-1.0) mg/dl AST 46 H (13-39) U/L ALT 55 H (7-52) U/L Alkaline Phosphatase 125 H (34-104) U/L Total Protein 6.3 (6.0-8.3) gm/dl Albumin 3.8 (3.4-5.0) gm/dl Globulin 2.5 (2.5-4.0) gm/dl Albumin/Globulin Ratio 1.5 (0.9-2) Lipase 48 (11-82) U/L Urine Color [place] Urine Appearance Cloudy A (Clear) Urine pH 5.5 (4.5-7.5) Ur Specific [place] 1.015 (1.000-1.030) Urine Protein 1+ H (Negative) Urine Glucose (UA) Negative (Negative) Urine Ketones Negative (Negative) Urine Blood Trace H (Negative) Urine Nitrite Positive A (Negative) Urine Bilirubin 1+ H (Negative) Urine Urobilinogen Negative (Negative) Ur Leukocyte Esterase 2+ H (Negative) Urine WBC (Auto) 11-20 H (0-5) /hpf Urine RBC (Auto) 11-20 H (0-2) /hpf U Hyaline Cast (Auto) 0-2 (0-2) /lpf U Epithel Cells (Auto) 3-5 H (0-2) /hpf Urine Bacteria (Auto) 3+ H (None Seen) Administered Medications Discontinued Medications Ertapenem (Invanz 1000mg) 1,000 mg in 10 mls @ 2 mls/min IV NOW STA Stop: 04/21/24 07:01 Last Admin: 04/21/24 07:12 Dose: 2 mls/min Documented By: MARIA DEL CARMEN Ondansetron HCl (Ondansetron Inj 2 Mg/Ml 2 Ml Vial) 4 mg IV NOW STA Stop: 04/21/24 07:05 Last Admin: 04/21/24 07:18 Dose: 4 mg Documented By: MARIA DEL CARMEN Imaging Data Radiologist's Impression: Liver Ultrasound 04/21/24 08:06 ULTRASOUND RIGHT UPPER QUADRANT ABDOMEN CLINICAL HISTORY: Elevated hepatic transaminases. COMPARISON STUDY: Abdominal CT dated 02/03/2023 TECHNIQUE: Real-time, grayscale, and color flow sonography of the right upper quadrant of the abdomen was performed. Images are reviewed in the transverse and longitudinal planes. FINDINGS: Liver: The liver is normal in size and echotexture. There is no intrahepatic biliary ductal dilatation. The main portal vein is patent. Gallbladder: The gallbladder is surgically absent. The common bile duct measures up to 0.6 cm in diameter. Pancreas: A 5 mm cystic focus in the pancreatic head is unchanged and typical for a small sidebranch IPMN. Visualized portions of the pancreatic head and body are otherwise normal in appearance. The splenic vein is patent. Right kidney: Survey images of the right kidney demonstrate cortical atrophy. Echotexture is normal. There is moderate right-sided hydronephrosis. Ascites: None. IMPRESSION: 1. The liver is normal in size and echotexture. 2. Status post cholecystectomy. 3. There is moderate right-sided hydronephrosis, which is similar to previous. ACT 112: Negative or not required by law. Electronically signed by: Reilly Mackey M.D. 04/21/2024 8:58 AM Discharge Plan Visit Data Chief Complaint: Urinary Symptoms Stated Complaint: UTI ED Provider: Sahara Mancuso Discharge Problem: Urinary tract infection due to ESBL Klebsiella Patient Disposition: Admitted As Inpatient Discharge Instructions Interventions: ED Discharge Assessment Last Done: 04/21/24 10:45
--- OUTSIDE RECORDS SUMMARY | 2024-04-21 11:47 | External Medical Summary | Summary of Care ---
Author Name Unknown Organization [facility] Address [address] [place] [address] Phone [phone] Care Team Providers Care Foreign Exchange Dealer Name Role Phone Evangelina, Juan M Primary Care Provider [phone] Reason for Visit * Reason Onset Date Comments Call Back 04/16/2024 Encounter Details Date Type Department Care Team (Late st Contact Info) Description 04/16/2024 Telephone Infectious Disease, [place] [address] [place] [address] Nadja Bowers MD [address] [place] [address] Call Back (/) Allergies Active Allergy Reactions Criticality Noted Date [...] High 01/16/2023 Other Reaction(s): Swelling of Lip/Tongue/Throat Novi nuts Pineapple Edema face/lips/tongue High 04/25/2022 Other reaction(s): Swelling of Lip/Tongue/Throat Sulfa Antibiotics Nausea/vomiting Medium 11/23/2016 documented as of this encounter (statuses as of 04/20/2024) Medications Medication Sig Dispensed Refills Start Date [...] mouth. Active insulin aspart (NOVOLOG) 100 UNIT/ML injectionIndications: inject 6 units if over 150 Inject 7 [...] Tablet by mouth in the morning. Active documented as of this encounter (statuses as of 04/20/2024) Active Problems Problem Noted Date Diagnosed Date [...] as of this encounter (statuses as of 04/20/2024) Resolved Problems Problem Noted Date Diagnosed Date Resolved Date Acute GI bleeding 01/11/2023 01/11/2023 Urge incontinence of urine 01/11/2023 0 01/11/2023 Postviral fatigue syndrome 08/01/2020 0 01/11/2023 Acute pyelonephritis 09/16/2017 023 Dysuria 06/13/2017 01/11/2023 Complicated UTI (urinary tract infection) 06/13/2017 04/09/2023 documented as of this encounter (statuses as of 04/20/2024) Immunizations Name Administration Dates Next Due Seasonal [...] encounter Miscellaneous Notes * Telephone Encounter - Sia Boucher LPN - 04/20/2024 12:35 PM EDT Attempted to callback. The number I dialed was not in service. I tried 3 times. Sia Boucher LPN Nurse Navigator ID * Telephone Encounter - Ephraim Moran OSA - 04/16/2024 3:41 PM EDT Sales Agent Financial Report Service - Patient Related Communication Reason for Call: Carey is calling back asking to speak with nurse. Is requesting return call. Carey will be leaving now but Doctor may be there until 5. [phone] Thank you JIMMY Hummel * Telephone Encounter - Sari Newberry OSA - 04/16/2024 1:51 PM EDT Sales Agent Financial Report Service - Patient Related Communication Reason for Call: Received call from Carey at Dr. Hutchinson office. Looking to speak to nurse, office in regards to ptand resistant infection. Asking for a call back today please. Aware Sia is not in the office today. Asked for escrow secretary or JIMMY Rainey documented in this encounter Plan of Treatment Upcoming Encounters Date Type Department Care Team (Late st Contact Info) Description 05/25/2024 11:00 AM EST Office Visit Infectious Disease, [address] [id number] Nadja Bowers MD [address] [place] [address] Health Maintenance Due Date Last Done Comments [...] Additional history exists CKD PHOS USE SMARTSET 19453 07/14/202406/30, 04/09/2023, 04/08/2023, Additional history exists CKD HGB USE SMARTSET 08587 07/30/202407/30, 07/30/2023, 07/16/2023, Additional history exists Pneumococcal Vaccine: 65+ Years Completed 05/21/2016, 03/16/2009 Zoster Vaccines Completed 05/21/2019, 01/22/2019 VITAMIN D LEVEL ONCE IN A LIFETIME-USE SMARTSET# [id number] Completed 04/14/2020, 08/03/2018 HPV (Gardasil) Vaccine Aged [...] Not on filedocumented as of this encounter Advance Directives * Full Code [...] Advance Directives occurred with: Patient Care Teams Foreign Exchange Dealer Relationship Specialty Start Date End Date Keith Hutchinson DO [address] [facility] [place] [address] PCP - General Family Medicine 08/28/21 documented as of this encounter
[2024-04-21] MEDS: LANTUS PER UNIT CHARGE SQ SCH (11:58)
[2024-04-21] MEDS: INSULIN ASPART PER UNIT CHARGE SC SCH (11:58)
[2024-04-21] MEDS: amLODIPine BESYLATE 5 MG TAB PO SCH (12:03)
[2024-04-21] MEDS: busPIRone 15 MG TAB PO SCH (12:04)
[2024-04-21] MEDS: METOPROLOL TARTRATE 25 MG TAB PO SCH (12:04)
[2024-04-21] MEDS: PANTOprazole 40 MG TAB PO SCH (12:05)
[2024-04-21] MEDS: POTASSIUM CHLORIDE 10 MEQ TABCR PO SCH (12:05)
[2024-04-21] MEDS: ADVANCED PROBIOTIC 625 MG CAPSULE PO SCH (12:06)
[2024-04-21] MEDS: MAGNESIUM OXIDE 400 MG TAB PO SCH (12:06)
[2024-04-21 20:10] VITALS: RESP 16; TEMP 98.1
[2024-04-21] MEDS: ATORVASTATIN 10 MG TAB PO SCH (20:12)
[2024-04-21] MEDS: ENOXAPARIN INJ 40 MG/0.4 ML SYR SQ SCH (20:14)
[2024-04-21] MEDS: LOSARTAN POTASSIUM 25 MG TAB PO SCH (20:17)
[2024-04-21] MEDS: TRIAMCINOLONE ACET 0.1% OINT 80 GM TUBE EXT SCH (20:21)
[2024-04-21] MEDS ORDERED: CLOBETASOL PROPIONATE 0.05% OINT 15 GM TUBE EXT SCH (21:00)
[2024-04-22] MEDS: KETOROLAC TROMETHAMINE 15 MG/ML VIAL IV ONE (01:59)
[2024-04-22 06:56] LABS: Basophils # (auto) 0.03 K/uL (0.00-0.20); Basophils % (auto) 0.5 %; Eosinophils # (auto) 0.01 K/uL (0.00-0.50); Eosinophils % (auto) 0.2 %; Hematocrit (blood only) 39.2 % (37.0-47.0); Hemoglobin 13.1 g/dl (12.0-16.0); Immature Granulocytes # (auto) 0.08 K/uL (0.01-0.20); Immature Granulocytes % (auto) 1.3 %; Lymphocytes # (auto) 1.95 K/uL (1.20-3.40); Lymphocytes % (auto) 32.2 %; Mean Corpuscular Hemoglobin 32.3 pg (25.0-34.0); Mean Corpuscular Hgb Conc 33.4 g/dL (32.0-36.0); Mean Corpuscular Volume 96.8 fL (80.0-100.0); Mean Platelet Volume 12.1 fL (9.4-12.4); Monocytes # (auto) 0.43 K/uL (0.11-0.59); Monocytes % (auto) 7.1 %; Neutrophils # (auto) 3.56 K/uL (1.40-6.50); Neutrophils % (auto) 58.7 %; Platelet Count 133 K/uL (130-400); RDW Coefficient of Variation 13.3 % (11.5-14.5); RDW Standard Deviation 47.5 fL (36.4-46.3); Red Blood Count 4.05 M/uL (4.20-5.40); White Blood Count 6.06 K/ul (4.8-10.8)
[2024-04-22 07:07] LABS: Albumin Globulin Ratio 1.6 (0.9-2); Albumin Level 3.7 gm/dl (3.4-5.0); BUN Creatinine Ratio 16.7 (10-20); Bilirubin,Total 1.6 mg/dl (0.2-1.0); Calcium 8.9 mg/dl (8.6-10.3); Creatinine Clr Calc Pharmacy 46.3 ml/min; Globulin 2.3 gm/dl (2.5-4.0); Potassium 3.9 mmol/L (3.5-5.1)
[2024-04-22 07:23] VITALS: BP 133/74; PULSE 73; O2SAT 92
--- NOTE | 2024-04-22 07:44 | Hospitalist Progress Note ---
Date of Service April 22, 2024 Assessment & Plan (1) UTI (urinary tract infection): Plan: Patient presented on 04/21 for worsening UTI symptoms Placed on Bactrim by her PCP on 04/14, then was placed on Macrobid by [facility] on 04/16 UCx on 04/14 grew ESBL E. coli with significant resistance Discussed option for MTU with patient at bedside, as her main reason to be in the hospital would be for IV antibiotics At time of admission, patient would prefer to stay in the hospital, rather than do outpatient IV antibiotics Ertapenem 1000 mg IV q24h Encourage p.o. fluid intake in the setting of national IVF shortage A.m. CBC, CMP, mag (2) Infection due to ESBL-producing Escherichia coli: Plan: Treatment (as above) (3) Transaminitis: Plan: Mildly elevated on arrival; ?secondary to recent Macrobid use Liver ultrasound ordered, pending Trend CMP (4) Diabetes: Plan: Last A1c at 6.7% on 04/06/2024 Patient reports she is normally on Lantus 28 units at night Will do Lantus 14 u BID while inpatient SSI with target BSG range 110-140mg/dL, CF 35, carb ratio 15 T2DM diet BSG ACHS Adjust regimen as needed (5) Poison morgan dermatitis: Plan: On the arms bilaterally x 1 week Patient reports she rubbed against sumac leaves at home Topical clobetasol propionate ointment application BID Plan Disposition: Admit to [facility] Full code T2DM diet VTE PPx: Lovenox 40 mg SQ q24h Admission and Anticipated Discharge Date Admission Date: April 21, 2024 Subjective Pt is a 83 yo female who was dx with UTI by her PCP on 04/16. Urine culture pos for ESBL E. coli, pt admitted for IV antibiotics. This morning, Review of Systems Review of Systems: As per HPI Physical Exam Physical Exam: General: no acute distress; non-toxic appearing; well-nourished; cooperative HEENT: normocephalic, atraumatic; no scleral icterus; PERRLA w/ EOMs intact; vision and hearing grossly intact Neck: supple; no lymphadenopathy; trachea midline Skin: Erythematous, itchy rash noted on the arms bilaterally; not raised; warm, dry without signs of tenting; no cyanosis; no rashes, bruising, lesions, or erythema noted CV: chest wall NTP; RRR; S1/S2 normal; no murmurs/rubs/gallops; pulses intact and symmetric at radial, DP, and PT Lungs: no acute respiratory distress; symmetrical chest wall expansion; clear breath sounds across all lung philip w/o adventitious sounds; no wheezing ABD: Soft, NTP; BS present; no rebound/guarding; no distention MSK: no tics or fasciculations; no edema noted in the LEs b/l, nonerythematous Neuro: A&Ox3; normal mood and affect; fluent speech; no focal deficits; sensation grossly intact in the LEs b/l Rash on arms Negative CVA tenderness Results & Data Results & Data Vital Signs (Past 12 Hours) Vital Signs Temp Pulse Pulse Resp BP BP Pulse Ox 04/22/24 07:22 36.7 C 73 16 133/74 92 04/21/24 20:08 36.7 C 85 16 156/78 H 93 O2 Del Method 04/22/24 07:22 Room Air 04/21/24 20:08 Room Air (1) UTI (urinary tract infection) Hematuria presence: without hematuria Urinary tract infection type: site unspecified Qualified Code(s): N39.0 - Urinary tract infection, site not specified
[2024-04-22] MEDS: ERTAPENEM 1000MG 1,000 MG/10 ML SYR IV SCH (08:48)
[2024-04-22] MEDS: IBRUTINIB PO SCH (10:05)
--- NOTE | 2024-04-22 14:09 | Discharge Summary ---
Date of Service April 22, 2024 Admission HPI Per Admitting Provider Lisa is a pleasant 83-year-old female with PMH of complicated UTIs, urgency incontinence, paroxysmal atrial fibrillation, chronic pancreatitis, cervical cancer, CLL, orthostatic hypotension, glaucoma, ESBL E. coli infection, and CKD stage III. She presented on 04/21 for worsening UTI symptoms. Patient reports that she has had UTI symptoms throughout most of March; she is not exactly sure when it started. She has a history of recurrent UTIs. She was initially placed on a course of ciprofloxacin, which failed, and then placed on Bactrim by her PCP on 04/14. The urine culture on 04/14 grew ESBL E. coli, and patient received a call from Dr. Hutchinson (PCP) telling her she needed to go to the ER. She went to [facility] on Monday 04/16 and Tuesday 04/17 was prescribed Macrobid. Despite this she has continued to have burning with urination, dysuria, and lower back pain. No hematuria. No history of kidney stones. Patient took her regular morning medications today; only recent change was that she was recently on many different antibiotics. She manages her own medicine at home. Patient lives with her who is 86 years old. No sick contacts. Additional symptoms include elevated heart rate; she reports that she woke up last night feeling like her heart was racing, and reports it was around 96 bpm. While she has not had a temperature at home, she reports she was around 98.1 F for last couple days, which might of been high for her. Patient does not have a significant history of liver issues; no history of hepatitis. She does note she had a "liver bleed" secondary to taking Tylenol a very long time ago. She denies alcohol use, history of alcohol use, tobacco use, or smoking. She has not noticed any recent tick bites. However she does believe she might have po michael morgan on both her arms from sumac leaves, and that she first noticed last week. Patient is hypertensive at 165/77 at time of admission; vitals otherwise stable. ED course: Ertapenem 1000 mg IV Zofran 4 mg IV ROS: Patient endorses heat intolerance, increased heart rate (97bpm last night), dry cough, nausea/vomiting (resolved; last vomited over the weekend), urinary incontinence (chronic), loose stool, burning with urination, dysuria, and lower back pain. Patient denies fever (98 was the highest at home), chills, night-sweats, dizziness, lightheadedness, HILLMAN, chest pain, SOB, hematuria, abdominal pain, hematemesis, diarrhea, saddle anesthesia, or numbness/tingling going down the legs. Principal Diagnosis UTI Discharge Exam General: no acute distress; non-toxic appearing; well-nourished; cooperative HEENT: no scleral icterus; EOMs intact; vision and hearing grossly intact Neck: supple; no lymphadenopathy; trachea midline Skin: Erythematous, itchy rash noted on the arms bilaterally; not raised; warm, dry without signs of tenting; no cyanosis; Significant superficial bruising at b ilateral arms, CV: chest wall NTP; RRR; S1/S2 normal; no murmurs/rubs/gallops; pulses intact and symmetric Lungs: no acute respiratory distress; symmetrical chest wall expansion; clear breath sounds across all lung philip w/o adventitious sounds; no wheezing ABD: Soft, NTP; BS present; no rebound/guarding; no distention. MSK: no tics or fasciculations; no edema noted in the LEs b/l, nonerythematous Neuro: A&Ox3; normal mood and affect; fluent speech; no focal deficits; sensation grossly intact in the LEs b/l Discharge Data Allergies Allergy/AdvReac Type Severity Reaction Status Date / Time amoxicillin Allergy Severe Swelling Verified 03/16/24 14:47 of Lip/Tongue/Throat cefazolin Allergy Severe Hives Verified 03/16/24 14:47 egg Allergy Severe Gastrointestinal Verified 03/16/24 14:47 Upset nut - unspecified Allergy Severe Swelling Verified 03/16/24 14:47 of Lip/Tongue/Throat pineapple Allergy Severe Swelling Verified 03/16/24 14:47 of Lip/Tongue/Throat nitrofurantoin Allergy Mild tachycardia Verified 03/16/24 14:47 aspirin Allergy Unknown INCREASES Verified 03/16/24 14:47 BLEEDING doxycycline Allergy Hives Verified 04/14/24 14:19 acetaminophen [From Tylenol] AdvReac Severe liver bleed Verified 03/16/24 14:47 duloxetine AdvReac Severe SEVERE Verified 03/16/24 14:47 VOMITING caffeine AdvReac Intermediate racing Verified 03/16/24 14:47 heart lisinopril AdvReac Intermediate cough, Verified 03/16/24 14:47 white "stuff" all over lungs Sulfa (Sulfonamide AdvReac Intermediate Tinnitis Verified 03/16/24 14:47 Antibiotics) Consultations 04/21/24 08:17 ED Decision to Admit Stat 04/21/24 08:34 ED Decision to Admit Stat Ordered Studies 04/21/24 08:06 US liver Stat Hospital Course (1) UTI (urinary tract infection): Patient presented to ED on 04/21 for worsening UTI symptoms. Started Bactrim by her PCP on 04/14, then was placed on Macrobid by [facility] on 04/16. Urine culture on 04/14 grew ESBL E. coli with significant resistance Pt opted for admission to hospital for IV Ertapenem. - Ertapenem 1000 mg IV q24h - Encourage p.o. fluid intake in the setting of national IVF shortage (2) Infection due to ESBL-producing Escherichia coli: Treatment (as above) (3) Transaminitis: Mildly elevated on arrival; possibly secondary to recent Macrobid use - Liver ultrasound ordered- No unusual findings -ALT and AST within normal ranges on 04/22 (4) Diabetes: Last A1c at 6.7% on 04/06/2024. Patient reports she is normally on Lantus 28 units at night - Lantus 14 u BID while inpatient - SSI with target BSG range 110-140mg/dL, CF 35, carb ratio 15 - T2DM diet (5) Poison morgan dermatitis: On the arms bilaterally x 1 week. Patient reports she rubbed against sumac leaves at home -Topical clobetasol propionate ointment application BID Total Time Total Time Spent Total Time Spent (In Minutes): As per attending physician's attestation Discharge Plan Discharge Items Patient Disposition: Home - Self-Care Reason For Visit: UTI Discharge Diagnosis: UTI Activity: Resume your previous activity Non-emergency contact: Primary Care Provider Call non-emergency contact if: your symptoms worsen Follow-up/Referrals: Keith Hutchinson DO [Primary Care Provider] - 04/29/24 1:30 pm (with Carey Oconnor.) Diet: Regular Addtl Attending Provider Instructions: Your urine culture confirmed a antibiotic resistant strain of bacteria that required IV antibiotics to resolve. You received 2 doses of Ertapenem at the hospital. You will need to return to the hospital every day for the next 5 days to completed your course of antibiotics. Please follow up with your PCP in 7 days to review your medications and reassess your symptoms. Pending Studies at Discharge: No Stand-Alone Forms: My [facility] [place], Smoking Cessation Medications and DC Order Prescriptions: Continued (DME) lancets [Prodigy Lancets] 28 gauge misc See Rx Instructions .Route Qty: 300 3RF Rx Instructions: As directed: check tid cholecalciferol (vitamin D3) [Vitamin D3] 25 mcg (1,000 unit) tablet 1,000 unit PO QDL Qty: 30 3RF (DME) Prodigy No Coding Strip See Rx Instructions .Route Qty: 100 5RF Patient Comments: Pt uses glucometer when wearable flash glucose sensor not on. Rx Instructions: Patient tests 3 times daily and as needed when symtomatic estradiol 0.01 % (0.1 mg/gram) cream 0.5 appful vaginal .COMPLEX Qty: 42.5 1RF Rx Instructions: 0.5 appful vaginally twice weekly; for 14 days (DME) FreeStyle Vicente 2 Sensor Kit See Rx Instructions .Route Qty: 1 3RF Patient Comments: Pt removed wearable glucose monitor 01/24/2023. Rx Instructions: As directed E11.9 AZO D-Mannose 500 mg capsule 500 mg PO DAILY Rx Instructions: Pt started this per Dr. Hudson- for good Urinary health. (DME) electric lift chair See Rx Instructions .Route .MEDSUPPLY Qty: 1 0RF Rx Instructions: As directed ascorbic acid (vitamin C) [Vitamin C] 500 mg tablet 500 mg PO DAILY ondansetron HCl 4 mg tablet 4 mg PO Q8H PRN (Reason: Nausea) Qty: 90 1RF Patient Comments: "Several weeks" since last use. (DME) pen needle, diabetic [BD Ultra-Fine Mini Pen Needle] 31 gauge x 3/16" needle See Rx Instructions .Route Qty: 100 3RF Rx Instructions: As directed potassium chloride 10 mEq capsule, extended release 10 meq PO BID Qty: 180 3RF atorvastatin 10 mg tablet 10 mg PO HS Qty: 90 1RF insulin glargine [Lantus Solostar U-100 Insulin] 100 unit/mL (3 mL) insulin pen 28 unit subcut HS 90 Days Qty: 25.2 2RF omeprazole 20 mg capsule,delayed release(DR/EC) 20 mg PO DAILY Qty: 90 1RF Rx Instructions: Pt states she take 20 mg a day (DME) BD Insulin Syringe (half unit) 0.3 mL 31 gauge x 5/16" syringe See Rx Instructions .Route Qty: 300 3RF Rx Instructions: use to give insulin three times daily calcitriol 0.25 mcg capsule 0.25 mcg PO DAILY Rx Instructions: filled 04/16 cranberry fruit concentrate 125 mg tablet,disintegrating 250 mg PO BID nystatin-triamcinolone 100,000-0.1 unit/gram-% ointment 1 applic topical BID PRN (Reason: Skin Irritation) Qty: 60 0RF losartan 25 mg tablet 25 mg PO HS cholestyramine (with sugar) [Questran] 4 gram powder in packet 4 g PO BID PRN (Reason: Loose stools or diarrhea.) Rx Instructions: administer w/meal; avoid other meds within 1hr before or 4-6hr after dose buspirone 15 mg tablet 15 mg PO TID Qty: 270 0RF insulin aspart U-100 [Novolog U-100 Insulin aspart] 100 unit/mL solution 8 unit subcut TID Qty: 30 3RF melatonin 5 mg capsule 5 mg PO HS Qty: 30 5RF amlodipine 5 mg tablet 5 mg PO BID Glucosamine Chondroitin 550-30-1 mg Capsule 1 cap PO QDL magnesium oxide 400 mg (241.3 mg magnesium) tablet 400 mg PO BID omega 6-qdx-fri-fish oil [Fish Oil] 1,200 (144-216) mg Capsule 1 cap PO QDL calcium carbonate [Calcium 600] 600 mg calcium (1,500 mg) tablet 600 mg PO DAILY cyanocobalamin (vitamin B-12) [Vitamin B-12] 1,000 mcg Tablet 1,000 mcg PO DAILY carboxymethylcellulose sodium 1 % Drops, Liquid Gel 2 drp OPHTHALMIC (EYE) BID PRN (Reason: Dry Eye(S)) Probiotic 3 billion cell Capsule 3,000 mmu cells PO DAILY Rx Instructions: administer with a meal multivitamin Tablet 1 tab PO QDL Imbruvica 280 mg tablet 280 mg PO QAM Hold Instructions: Resume on 01/04/23. metoprolol tartrate 25 mg Tablet 12.5 mg PO BID Qty: 30 0RF ferrous sulfate [FeroSul] 325 mg (65 mg iron) tablet 325 mg PO DAILY Rx Instructions: Take with Vitamin C twice daily Discontinued nitrofurantoin monohyd/m-cryst [Macrobid] 100 mg capsule 100 mg PO BID 10 Days Qty: 20 0RF Rx Instructions: filled 04/17 must administer with a meal/food [facility] 04/16/24 Discharge Orders: Discharge Order (Routine); Ordered 04/22/24 Ordered By: Anny Maguire/Other Patient Handouts: UTIs Admission Data Admit Date/Time: 04/21/24 09:17 Attending Provider: Mateo Live Admit Provider: Mateo Live Primary Care Provider: Keith Hutchinson Providers: Mateo Live; [facility],Home Healthcare Other Interventions: Discharge Summary Assessment (RN) Last Done: 04/22/24 16:43 Supervising Physician Co-Signing Physician Notes I personally examined the patient and verified all chavira points of history and exam, discussed case, and agree with decision making with Dr Dhillon feeling better and would like to go home vitals noted nad heent nc at mmm breathing unlabored no accessory muscles good effort skin no rashes no pallor or icterus ESBL UTI failing outpt Rx - appears bacteria resistant to some of prior antibiotics , and while sensitive to macrobid (and quite reasonable to try in order to stave off need for IV/inpatient/etc) her eGFR is low enough that macrobid unlikely to be effective. ertapenem - tried to set up for home, but home nursing was insistent on midline which pt understandably did not want given that she only needs 5 more days - set up for MTU. 7 days total. discussed pelvic floor hygeine - short of adding bidet she is managing cleanliness as best as it sounds like she can. mild transaminitis - highly likely related to macrobid. ast/alt normalized, alk phos down to 121 - repeat as outpt ~4wks for completeness DVT proph - lovenox otherwise as above Resident Activity Tracking Resident Involvement: Resident Care Provided Care Provided: Adult Hospital Medicine
--- NOTE | 2024-04-22 14:59 | Communication Note ---
Date of Service: April 22, 2024 By CMS guidelines, a determination that the admission or continued stay is not medically necessary has been made by a member of the UR committee and a ph ysician for this hospital stay, therefore a Code 44 will be completed and the Inpatient admission will be changed to outpatient.
--- NOTE | 2024-04-22 18:22 | Billing Data ---
Date of Service April 22, 2024 Coding Level of Care Code 02196 IN/OBS DISCH 30 MIN/LESS
== END 2024-04-22 17:25 | disposition home or self-care (01) | DRG 690 ==
LOC: ED 06:22 → 3E 09:17 → INTOOBSV 09:17 → 3E 10:45